=== PATIENT | male | born 1955 | race Caucasian/White ===

== ENCOUNTER 2016-03-21 14:59 | Inpatient (IN) | payer MEDICARE, OTHER ==
[~2016-03-21] VITALS: Ht 188 cm; Wt 172.4 kg
[~2016-03-21 14:59] MED LIST: AC325T PO; ALBU2.5V4 NEB; ALBU8.5H4 IH; ALPR1TAB7 PO; AMARYL; AMLO10TA2 PO; AMLO10TA82 PO; ASP325T PO; ASP81CT PO; ASPI-241 PO; ASPI-906 PO; ASPI-983 PO; ASPIRIN; ATOR40TA70 PO; ATR20T PO; BIPAP; CEFD300C3 PO; CEPH-507 PO; CLCX100C PO; CLON0.5T60 PO; CLOP75TA28 PO; CLPD75T PO; FEXO180T PO; FEXO180T84 PO; FEXO1TAB42 PO; FISH OIL; FLC1T PO; FLUT1DIS26 IH; FLUT1DIS26 INH; FNST5T PO; FOLI0.4T2 PO; FURO40TA4 PO; GFN600TCR PO; GLIM4TAB PO; GLMP4T PO; GLYPIZIDE; GUAI600T43 PO; HCT25T PO; HYDR25TA4 PO; INSR1U SC; INSU100I14 SQ; INSU100I29 SC; INSU100V5 SQ; ISOS30TA3 PO; KETO-22 PO; LEVE1U SQ; LEVO150T6 PO; LEVO300T2 PO; LEVO50TA6 PO; LEVO750T39 PO; LIPITOR; LIRA0.6P SQ; LISINOPRIL; LOTENSIN; LVT.05T PO; LVT.15T PO; MECL-106 PO; METF-380 PO; METF1000 PO; METFORMIN; METO-272 PO; METO-354 PO; METO100T5 PO; METO50TA7 PO; MTF500T PO; MTP50T PO; MULT-974 PO; MULT1CAP27 PO; MULTIVITAMIN; MUPI22OI29 EXT; NEXIUM; NF-ESOM40C PO; NITR0.4T SL; OMEG-158 PO; OMEG1CAP40 PO; OMEG1CAP74 PO; OMEP40CA36 PO; OXYC-12 PO; Oxygen; POTA-51 PO; POTA2.5T PO; POTA20TA15 PO; POTA99TA21 PO; PRD10T PO; PRD20T PO; RMP5C PO; RT-ALBUINH IH; SLMFT1E INH; SULF1TAB35 PO; SYNTHROID; TIOT18CA2 INH; TMSL.4C PO; TOPROL; WRF5T PO; ZPR20C PO; [UNRECOGNIZED DRUG - OTHER] IV
--- NOTE | 2016-03-21 15:55 | Diagnostic Imaging Report ---
INDICATION: Weakness. EXAMINATION: Portable chest at 3:42 p.m. FINDINGS: There is cardiomegaly. Pulmonary vascularity is within normal limits. There are no appreciable infiltrates. There are postop changes from a median sternotomy. IMPRESSION: Cardiomegaly without evidence of pulmonary venous hypertension. There is a suboptimal inspiration. Dictated by: Dictated on workstation # [id number]
[2016-03-21 16:49] LABS: BASOPHILS # (AUTO) 0.1 10^3/uL (0.0-0.1); BASOPHILS % (AUTO) 1 % (0-10); BILIRUBIN,URINE NEGATIVE (NEGATIVE); EOSINOPHILS # (AUTO) 0.2 10^3/uL (0.0-0.3); EOSINOPHILS % (AUTO) 4 % (0-10); KETONES,URINE NEGATIVE (NEGATIVE); LEUKOCYTE ESTERASE ,URINE NEGATIVE (NEGATIVE); LYMPHOCYTES # (AUTO) 0.6 X 10^3 (1.0-4.0); LYMPHOCYTES % (AUTO) 15 % (12-44); MEAN CORPUSCULAR HEMOGLOBIN 27 PG (25-34); MEAN CORPUSCULAR HGB CONC 30 G/DL (32-36); MEAN CORPUSCULAR VOLUME 90 FL (80-99); MEAN PLATELET VOLUME 10.5 FL (7.4-10.4); MONOCYTES # (AUTO) 0.6 X 10^3 (0.0-1.0); MONOCYTES % (AUTO) 15 % (0-12); NEUTROPHILS # (AUTO) 2.6 X 10^3 (1.8-7.8); NEUTROPHILS % (AUTO) 64 % (42-75); NITRITE,URINE NEGATIVE (NEGATIVE); PH,URINE 7 (5-9); PLATELET COUNT 168 10^3/uL (130-400); PROTEIN,URINE NEGATIVE (NEGATIVE); RED BLOOD COUNT 3.35 10^6/uL (4.35-5.85); UROBILINOGEN,URINE NORMAL (NORMAL); WHITE BLOOD COUNT 4.1 10^3/uL (4.3-11.0)
[2016-03-21 17:02] LABS: HYALINE CASTS, URINE 0-2 /LPF; WBC,URINE RARE /HPF
[2016-03-21] MEDS ORDERED: GABA-490 PO (17:02)
[2016-03-21] MEDS ORDERED: [UNRECOGNIZED DRUG - CODE] (17:02)
[2016-03-21 17:08] LABS: ALBUMIN 3.3 G/DL (3.2-4.5); CALCIUM 8.2 MG/DL (8.5-10.1); CREATININE SERUM 1.41 MG/DL (0.60-1.30); MAGNESIUM 1.7 MG/DL (1.8-2.4); POTASSIUM 4.4 MMOL/L (3.6-5.0); TOTAL PROTEIN 6.5 G/DL (6.4-8.2)
[2016-03-21 17:31] LABS: THYROID STIMULATING HORMONE 2.44 UIU/ML (0.35-4.94)
--- NOTE | 2016-03-21 18:26 | ED General ---
General Chief Complaint: Respiratory Problems Stated Complaint: WEAKNESS Nursing Triage Note: pt reports increased general weakness amd soa x 1 month. Nursing Sepsis Screen: No Definite Risk Source of Information: Patient Exam Limitations: No Limitations History of Present Illness Time Seen by Provider: 15:25 Initial Comments This 61-year-old gentleman presents to the emergency room with complaints of feeling excessively tired and weak. He reports progressive swelling of the lower extremities and abdomen. Symptoms have been fairly severe for about the past 5 days. He fell twice over the weekend. Today he has been unable to get up to the bathroom. He has a history of neuropathy, CHF, COPD, Parkinson's, obstructive sleep apnea, and hypothyroidism. Last echocardiogram on file reveals an ejection fraction of 50 percent. He has a significant chronic cough. His reports possible subjective fever over the past couple of days. later reports about the time of admission the patient is an alcoholic and drinks a significant amount of hard alcohol daily. His makes a correlation with worsening weakness and initiation of new medications including Neurontin and Sinemet about one month ago. Allergies and Home Medications Allergies Coded Allergies: ARB-Angiotensin Receptor Antagonist (Verified Allergy, Severe, ANAPHYLAXIS , 04/08/15) DUE TO REACTION TO ACEI UNABLE TO TAKE ARB PER CARDIOLOGY. hydrocodone (Verified Allergy, Unknown, 08/05/14) REACTS BADLY WITH HEART MEDICINE tree nut (Verified Allergy, Unknown, 03/21/16) JAQUELIN Inhibitors (Verified Adverse Reaction, Unknown, 04/06/15) ananaphlaxis Uncoded Allergies: ENVIRONMENTAL (Allergy, Mild, 09/07/08) Home Medications (Reported) Acetaminophen 325 Mg Tablet 650 MG PO QID PRN PRN PAIN (Reported) TAKES 2 (325MG) TABLETS Albuterol Sulfate 8.5 Gm Hfa.aer.ad 2 PUFF IH QID PRN PRN SHORTNESS OF BREATH ( Reported) Albuterol Sulfate 2.5 Mg/3 Ml Vial.neb 2.5 MG NEB Q4H PRN PRN SHORTNESS OF BREATH (Reported) Amlodipine Besylate 10 Mg Tablet 10 MG PO DAILY (Reported) Aspirin 81 Mg Tablet.dr 81 MG PO HS (Reported) Atorvastatin Calcium 40 Mg Tablet 40 MG PO DAILY (Reported) Clopidogrel Bisulfate 75 Mg Tablet 75 MG PO DAILY (Reported) Fluticasone/Salmeterol 1 Each Blst.w.dev 1 PUFF INH BID (Reported) Furosemide 40 Mg Tablet 40 MG PO 0800,1600 (Reported) 80 mg im the morning and 40mg in the evening Gabapentin 400 Mg Capsule 400 MG PO TID (Reported) Guaifenesin 600 Mg Tab.er.12h 600 MG PO Q12HR (Reported) Insulin Aspart 300 Units/3 Ml Solution 50 UNITS SQ AC (Reported) Insulin Detemir 100 Unit/1 Ml Insuln.pen 50 UNITS SC BID (Reported) Levothyroxine Sodium 150 Mcg Tablet 300 MCG PO DAILY (Reported) TAKES 2 (150MCG) TABLETS ALONG WITH 1 (50MCG) TABLET FOR TOTAL DAILY DOSE OF 350MCG. Levothyroxine Sodium 50 Mcg Tablet 50 MCG PO DAILY (Reported) TAKES ALONG WITH 2 (150MCG) TABLETS FOR A TOTAL DAILY DOSE OF 350MCG Metformin HCl 1,000 Mg Tablet 1,000 MG PO BID WITH MEALS (Reported) Metoprolol Succinate 50 Mg Tab.er.24h 100 MG PO HS (Reported) TAKES 2 (50MG) TABLETS Multivitamin 1 Each Tablet 1 TAB PO DAILY (Reported) Nitroglycerin 0.4 Mg Tab.subl 0.4 MG SL UD PRN PRN CHEST PAIN (Reported) dissolve one tablet under the tongue every 5 minutes as needed for chest pain. Oaks-3/Dha/Epa/Fish Oil 1,000 Mg Capsule 1,000 MG PO TID (Reported) Omeprazole 40 Mg Capsule.dr 40 MG PO DAILY (Reported) Potassium Gluconate 99 Mg Tablet 99 MG PO BID (Reported) Prednisone 10 Mg Tab PO UD (Reported) #42 FILLED 16 6 TABS X2 DAYS, 5 TABS X2 DAYS, 4 TABS X2 DAYS, 3 TABS X2 DAYS, 2 TABS X2 DAYS, 1 TAB X2 DAYS Sulfamethoxazole/Trimethoprim 1 Each Tablet 1 TAB PO MoWeFr (Reported) Tiotropium [place] 1 Inh Aerp 1 CAP INH DAILY (Reported) Constitutional: see HPI EENTM: no symptoms reported Respiratory: see HPI Cardiovascular: see HPI Gastrointestinal: no symptoms reported Genitourinary: no symptoms reported Musculoskeletal: no symptoms reported Skin: no symptoms reported Psychiatric/Neurological: See HPI Past Bnnycte-Uaxrvo-Aedmmb Hx Patient Social History Alcohol Use: Regular Use Recreational Drug Use: No Smoking Status: Former Smoker Former Smoker/When Quit: Aug 05, 2006 Recent Foreign Travel: No Contact w/Someone Who Travel: No Recent Infectious Disease Expo: No Recent Hopitalizations: Yes (several - see history) Immunizations Up To Date Tetanus Booster (TDap): More than 5yrs PED Vaccines UTD: No Date of Pneumonia Vaccine: Jan 02, 2014 Date of Influenza Vaccine: Jan 03, 2015 Seasonal Allergies Seasonal Allergies: No Surgeries HX Surgeries: Yes (HIATAL HERNIA REPAIR, ESOPHAGEAL WRAP) Surgeries: Abdominal, Appendectomy, CABG, Coronary Stent, Thyroidectomy Respiratory Hx Respiratory Disorders: Yes Respiratory Disorders: Pneumonia, Chronic Bronchitis, Sleep Apnea, COPD Cardiovascular Hx Cardiac Disorders: Yes (STENTS, TRIPLE BYPASS) Cardiac Disorders: Chronic Edema/Swelling, Coronary Artery Disease, Heart Attack, High Cholesterol, Hypertension Neurological Hx Neurological Disorders: Yes Neurological Disorders: Neuropathy, Stroke Reproductive System Hx Reproductive Disorders: No Sexually Transmitted Disease: No HIV/AIDS: No Genitourinary Hx Genitourinary Disorders: No Gastrointestinal Hx Gastrointestinal Disorders: Yes Gastrointestinal Disorders: Gastroesophageal Reflux, Hiatal Hernia Musculoskeletal Hx Musculoskeletal Disorders: Yes (EXOSTOSIS R HALLUX) Musculoskeletal Disorders: Arthritis Endocrine Hx Endocrine Disorders: Yes (hx of graves dz prior to thyroidectomy) Endocrine Disorders: Diabetes, Insulin dep HEENT HX ENT Disorders: No Loss of Vision: Denies Hearing Impairment: Denies Cancer Hx Cancer: No Psychosocial Hx Psychiatric Problems: Yes (alcoholism) Integumentary HX Skin/Integumentary Disorder: No Blood Transfusions Hx Blood Disorders: No Family Medical History Family Medial History: Cardiovascular disease Congenital heart disease Diabetes mellitus Hypertension Respiratory disorder Physical Exam Vital Signs Vital Sign - Last 12Hours 03/21/16 03/21/16 03/21/16 16:47 20:06 20:40 Temp 99.4 Pulse 83 Resp 18 B/P 137/73 Pulse Ox 98 O2 Delivery Nasal Cannula O2 Flow Rate 3 Capillary Refill : Less Than 3 Seconds General Appearance: WD/WN Mild Distress Obese HEENT: PERRL/EOMI Normal ENT Inspection Pharynx Normal Neck: Normal Inspection Respiratory: Lungs Clear Normal Breath Sounds No Accessory Muscle Use No Respiratory Distress Other (delayed expiratory phase, chronic cough) Cardiovascular: Regular Rate, Rhythm No Murmur Other (pitting edema throughout the lower extremities. Swelling extends to the abdomen) Gastrointestinal: Normal Bowel Sounds Non Tender Other (edema extends throughout the abdomen) Back: Normal Inspection Extremity: Swelling Other (skin tear on the right gibson) Neurologic/Psychiatric: Alert Oriented x3 No Motor/Sensory Deficits Normal Mood/Affect toddler guide II-XII Norm as Tested Skin: Normal Color Warm/Dry Other (skin tear right gibson, chronic skin changes to the lower extremities) Progress/Results/Core Measures Results/Orders Lab Results Laboratory Tests Test 03/21/16 16:35 03/21/16 18:39 Range/Units Alanine Aminotransferase (ALT/SGPT) 28 0-55 U/L Albumin 3.3 3.2-4.5 G/DL Alkaline Phosphatase 100 40-136 U/L Anion Gap 16 H 5-14 MMOL/L Aspartate Amino Transf (AST/SGOT) 84 H 5-34 U/L B-Type Natriuretic Peptide 207.0 H <100.0 PG/ML BUN/Creatinine Ratio 7 Basophils # (Auto) 0.1 0.0-0.1 10^3/uL Basophils (%) (Auto) 1 0-10 % Blood Urea Nitrogen 10 7-18 MG/DL Calcium Level 8.2 L 8.5-10.1 MG/DL Carbon Dioxide Level 22 21-32 MMOL/L Chloride Level 99 98-107 MMOL/L Creatinine 1.41 H 0.60-1.30 MG/DL Eosinophils # (Auto) 0.2 0.0-0.3 10^3/uL Eosinophils (%) (Auto) 4 0-10 % Estimat Glomerular Filtration Rate 51 Free Thyroxine 1.17 0.70-1.48 NG/DL Glucose Level 226 H 70-105 MG/DL Hematocrit 30 L 40-54 % Hemoglobin 9.1 L 13.3-17.7 G/DL Lactic Acid Level 3.0 *H 2.3 *H 0.5-2.0 MMOL/L Lymphocytes # (Auto) 0.6 L 1.0-4.0 X 10^3 Lymphocytes (%) (Auto) 15 12-44 % Magnesium Level 1.7 L 1.8-2.4 MG/DL Mean Corpuscular Hemoglobin 27 25-34 PG Mean Corpuscular Hemoglobin Concent 30 L 32-36 G/DL Mean Corpuscular Volume 90 80-99 FL Mean Platelet Volume 10.5 H 7.4-10.4 FL Monocytes # (Auto) 0.6 0.0-1.0 X 10^3 Monocytes (%) (Auto) 15 H 0-12 % Neutrophils # (Auto) 2.6 1.8-7.8 X 10^3 Neutrophils (%) (Auto) 64 42-75 % Platelet Count 168 130-400 10^3/uL Potassium Level 4.4 3.6-5.0 MMOL/L Red Blood Count 3.35 L 4.35-5.85 10^6/uL Red Cell Distribution Width 18.0 H 10.0-14.5 % Serum Alcohol < 10 <10 MG/DL Sodium Level 137 135-145 MMOL/L Thyroid Stimulating Hormone (TSH) 2.44 0.35-4.94 UIU/ML Total Bilirubin 1.0 0.1-1.0 MG/DL Total Protein 6.5 6.4-8.2 G/DL Urine Bacteria NEGATIVE /HPF Urine Bilirubin NEGATIVE NEGATIVE Urine Casts PRESENT /LPF Urine Clarity CLEAR Urine Color YELLOW Urine Crystals NONE /LPF Urine Culture Indicated NO Urine Glucose (UA) NEGATIVE NEGATIVE Urine Hyaline Casts 0-2 H /LPF Urine Ketones NEGATIVE NEGATIVE Urine Leukocyte Esterase NEGATIVE NEGATIVE Urine Mucus NEGATIVE /LPF Urine Nitrite NEGATIVE NEGATIVE Urine Protein NEGATIVE NEGATIVE Urine RBC NONE /HPF Urine RBC (Auto) NEGATIVE NEGATIVE Urine Specific [place] 1.005 L 1.016-1.022 Urine Urobilinogen NORMAL NORMAL MG/DL Urine WBC RARE /HPF Urine pH 7 5-9 White Blood Count 4.1 L 4.3-11.0 10^3/uL My Orders Orders-VALENTINE WALTERS MD Cbc With Automated Diff (03/21/16 15:24) Comprehensive Metabolic Panel (03/21/16 15:24) Magnesium (03/21/16 15:24) Ua Culture If Indicated (03/21/16 15:24) Saline Lock/Iv-Start (03/21/16 15:24) Thyroid Stimulating Hormone (03/21/16 15:24) Free T4 (Free Thyroxine) (03/21/16 15:24) Chest 1 View, Ap/Pa Only (03/21/16 15:35) BNP (03/21/16 15:35) Lactic Acid Analyzer (03/21/16 16:50) Furosemide Injection (Lasix Injection) (03/21/16 18:30) Albuterol/Ipra Inhalation Soln (Duoneb I (03/21/16 18:30) Svn Sm Volume Nebulizer Rt-Rfs (03/21/16 18:26) Alcohol (03/21/16 18:53) Heart Healthy (03/22/16 Breakfast) Heart Healthy (03/21/16 Dinner) Vital Signs/I&O Vital Sign - Last 12Hours 03/21/16 03/21/16 03/21/16 03/21/16 20:06 20:40 21:48 21:48 Temp 99.4 Pulse 87 87 Resp 18 16 Pulse Ox 98 93 O2 Delivery Nasal Cannula O2 Flow Rate 3 3.00 35.00 03/22/16 03/22/16 03/22/16 03/22/16 00:11 00:40 02:17 03:30 Temp 99.6 99.6 Pulse 68 82 77 83 Resp 24 18 24 20 B/P 126/56 119/68 Pulse Ox 98 98 93 99 O2 Flow Rate 35.00 35.00 Blood Pressure Mean: 94 Progress Note : Progress Note No specific etiology for his progressive weakness was determined in the emergency room. It is likely multifactorial with contributing factors including anasarca, medication effect, persistent alcohol use, deconditioning, etc. Since patient is no longer able to function at home, he was admitted to the hospital for treatment of his anasarca and further evaluation. Dr. Gu requested consultation with cardiology. After discussion with Dr. Gu and cardiology, Lasix 80 mg IV was administered to start treating the anasarca. Alcohol withdrawal protocol was added as his reported he gets agitated if abstaining from alcohol for a significant amount of time. Lactic acid was elevated without known cause but was trending down on the repeat draw. DuoNeb treatment was administered before admission. Diagnostic Imaging Diagonstic Imaging: Xray Plain Films/CT/US/NM/MRI: chest Comments Chest x-ray viewed by me and report reviewed. See report below: NAME: KOMAL ORTIZ [facility] REC#: [id number] PT STATUS: REG ER : 1955 PHYSICIAN: VALENTINE WALTERS MD ADMIT DATE: 03/21/16/ER Signed Date of Exam: 03/21/16 CHEST 1 VIEW, AP/PA ONLY INDICATION: Weakness. EXAMINATION: Portable chest at 3:42 p.m. FINDINGS: There is cardiomegaly. Pulmonary vascularity is within normal limits. There are no appreciable infiltrates. There are postop changes from a median sternotomy. IMPRESSION: Cardiomegaly without evidence of pulmonary venous hypertension. There is a suboptimal inspiration. Dictated by: Dictated on workstation # [id number] Dict: 03/21/16 1552 Trans: 03/21/16 1622 [id number] Interpreted by: CARMELA VIEIRA Electronically signed by:CARMELA VIEIRA 03/21/16 1624 Departure Communication Time/Spoke to Admitting Phy: 18:15 Communication Gu Time/Spoke to Consulting Physi: 18:20 Communication/Consulting Dr. Woods Impression Impression: Primary Impression: Anasarca Additional Impressions: Debility Acute renal insufficiency COPD (chronic obstructive pulmonary disease) Qualified Code: J44.9 - Chronic obstructive pulmonary disease, unspecified Elevated lactic acid level Disposition: ADMITTED INPATIENT Condition: Stable Decision to Admit Reason: Admit from ER (General) Decision to Admit/Date: Mar 21, 2016 Time/Decision to Admit Time: 18:00 Departure-Patient Inst. Referrals: PAULETTE MCGRATH MD (PCP/Family) Primary Care Physician VALENTINE WALTERS MD Mar 21, 2016 18:26
[2016-03-21] MEDS ORDERED: FUROSEMIDE 40 MG/4 ML INJ (LASIX) IVP ONE (18:30)
[2016-03-21] MEDS ORDERED: RT-ALBUTEROL/IPRATROPIUM 3 ML (DUONEB) VIAL INH ONE (18:30)
[2016-03-21] MEDS ORDERED: SENNA W/DOCUSATE (SENOKOT S) TABLET PO PRN (21:30)
[2016-03-21] MEDS ORDERED: ONDANSETRON 4 MG/2 ML (SDV) Z0FRAN IV PRN (21:30)
[2016-03-21] MEDS ORDERED: LORazepam 1 MG (ATIVAN) TAB PO PRN ×3 (21:30)
[2016-03-21] MEDS ORDERED: D5 1/2 NS 1000 ML IV SOLUTION 1,000 ML IV SCH (21:30)
[2016-03-21] MEDS ORDERED: ANTACID SUSP 30 ML UDC (MYLANTA) PO PRN (21:30)
[2016-03-21] MEDS ORDERED: LORazepam INJ 2 MG/ML (ATIVAN) VIAL IV PRN ×3 (21:30)
[2016-03-21] MEDS ORDERED: CATHETER FLUSH 10 ML SYR IV PRN (21:30)
[2016-03-21] MEDS: CATHETER FLUSH 10 ML SYR IV SCH (22:00)
[2016-03-21] MEDS ORDERED: RT-ALBUTEROL/IPRATROPIUM 3 ML (DUONEB) VIAL INH PRN (23:00)
[2016-03-22 00:40] VITALS: BP 126/56
[2016-03-22 03:30] VITALS: BP 119/68
[2016-03-22] MEDS: CATHETER FLUSH 10 ML SYR IV SCH ×3 (04:24→21:17)
[2016-03-22] MEDS: THIAMINE 100 MG (VITAMIN B-1) TAB PO SCH (05:41)
[2016-03-22] MEDS: MULTIVIT W/MINERALS TAB (THERAGRAN M) PO SCH (05:41)
[2016-03-22 06:49] LABS: BASOPHILS % (AUTO) 1 % (0-10); EOSINOPHILS # (AUTO) 0.2 10^3/uL (0.0-0.3); EOSINOPHILS % (AUTO) 6 % (0-10); LYMPHOCYTES # (AUTO) 0.6 X 10^3 (1.0-4.0); LYMPHOCYTES % (AUTO) 18 % (12-44); MEAN CORPUSCULAR HEMOGLOBIN 27 PG (25-34); MEAN CORPUSCULAR HGB CONC 30 G/DL (32-36); MEAN CORPUSCULAR VOLUME 90 FL (80-99); MEAN PLATELET VOLUME 10.2 FL (7.4-10.4); MONOCYTES # (AUTO) 0.5 X 10^3 (0.0-1.0); MONOCYTES % (AUTO) 15 % (0-12); NEUTROPHILS # (AUTO) 2.1 X 10^3 (1.8-7.8); NEUTROPHILS % (AUTO) 61 % (42-75); PLATELET COUNT 152 10^3/uL (130-400); RED BLOOD COUNT 2.94 10^6/uL (4.35-5.85); RED CELL DISTRIBUTION WIDTH 18.3 % (10.0-14.5); WHITE BLOOD COUNT 3.4 10^3/uL (4.3-11.0)
[2016-03-22 07:12] LABS: CALCIUM 7.8 MG/DL (8.5-10.1); CREATININE SERUM 1.32 MG/DL (0.60-1.30); MAGNESIUM 1.4 MG/DL (1.8-2.4); POTASSIUM 3.2 MMOL/L (3.6-5.0)
[2016-03-22] MEDS ORDERED: FLU TRIvalent (5 YOA+) 2016-17 (AFLURIA) 0.5 ML IM ONE (07:15)
[2016-03-22] MEDS: RT-ALBUTEROL/IPRATROPIUM 3 ML (DUONEB) VIAL INH SCH ×4 (07:25→19:06)
[2016-03-22] MEDS: RT-ADVAIR HFA 115/21 MCG PER PUFF IH SCH ×2 (07:26→19:06)
[2016-03-22 08:00] VITALS: BP 158/84
[2016-03-22] MEDS: FOLIC ACID 1 MG TAB PO SCH (08:22)
[2016-03-22] MEDS: MAGNESIUM OXIDE (MAG-OX)400 MG TAB PO SCH ×2 (08:22→21:17)
[2016-03-22] MEDS ORDERED: KCL 20 MEQ TAB (K-DUR) PO NR (09:15)
[2016-03-22] MEDS ORDERED: MAGNESIUM 1 GM/100 ML IVPB 100 ML IV NR (09:15)
[2016-03-22 09:22] LABS: INR 1.1 (0.8-1.4); PROTHROMBIN TIME PATIENT 13.7 SEC (12.2-14.7)
[2016-03-22] MEDS ORDERED: MAGNESIUM 1 GM/100 ML IVPB 100 ML IV ONE (09:33)
[2016-03-22] MEDS ORDERED: CARB1TAB17 PO (09:53)
[2016-03-22] MEDS ORDERED: FURO40TA4 PO (09:53)
[2016-03-22] MEDS ORDERED: inSUlin ASPART (NovoLOG) 1 UNIT/0.01 ML (CHARGE PER UNIT) SC NR (09:53)
[2016-03-22] MEDS ORDERED: SULF-222 PO (09:53)
[2016-03-22] MEDS ORDERED: HYDR25TA4 PO (09:53)
[2016-03-22] MEDS ORDERED: TIOT18CA2 IH (09:53)
[2016-03-22] MEDS ORDERED: FUROSEMIDE 40 MG/4 ML INJ (LASIX) IVP NR (09:55)
[2016-03-22] MEDS ORDERED: SPIRONOLACTONE 25 MG (ALDACTONE) TAB PO NR (09:56)
--- NOTE | 2016-03-22 10:18 | History & Physical-Hospitalist ---
HPI History of Present Illness: HPI/Chief Complaint Mr. Boucher this 61-year-old white male with long-standing history of alcoholism who had been feeling increasingly weak with several falls over the weekend. He developed progressive fluid retention over the past several weeks. His believe this diamante symptoms had been getting worse with the addition of Sinemet and gabapentin that had been initiated in the past month for tremor and lower extremity pain. Patient has diabetes with neuropathy. He had been treated by Dr. Basilio the local math and physics instructor for an ulcer on the volar aspect of his third toe not felt to be infected it did been dressed and debridement did yesterday. He was unable to get to the bathroom due to weakness prompting his emergency room visit. He was in the hospital several months ago for similar admission with anasarca at which time over 50 pounds of fluid was mobilized. He reports drinking nearly a 2 L of vodka daily and reports absolutely no desire to quit. Date Seen 03/22/16 Attending Physician Zhane Gu Floyd R MD Referring Physician Date of Admission Mar 21, 2016 at 19:05 Home Medications & Allergies Home Medications Reviewed patient Home Medication Reconciliation Form Allergies Coded Allergies: ARB-Angiotensin Receptor Antagonist (Verified Allergy, Severe, ANAPHYLAXIS , 04/08/15) DUE TO REACTION TO ACEI UNABLE TO TAKE ARB PER CARDIOLOGY. hydrocodone (Verified Allergy, Unknown, 08/05/14) REACTS BADLY WITH HEART MEDICINE tree nut (Verified Allergy, Unknown, 03/21/16) JAQUELIN Inhibitors (Verified Adverse Reaction, Unknown, 04/06/15) ananaphlaxis Uncoded Allergies: ENVIRONMENTAL (Allergy, Mild, 09/07/08) Past Ufvyuff-Zkjgkv-Qhmdot Hx Patient Social History Alcohol Use: Regular Use Recreational Drug Use: No Smoking Status: Former Smoker Former smoker/When Quit: Aug 05, 2006 Physical Abuse Screen: No Sexual Abuse: No Recent Foreign Travel: No Contact w/other who traveled: No Recent Hopitalizations: Yes (several - see history) Recent Infectious Disease Expo: No Immunizations Up To Date Tetanus Booster (TDap): More than 5yrs Date of Pneumonia Vaccine: Jan 02, 2014 Date of Influenza Vaccine: Jan 03, 2015 Seasonal Allergies Seasonal Allergies: Yes Surgeries HX Surgeries: Yes (HIATAL HERNIA REPAIR, ESOPHAGEAL WRAP) Surgeries: Abdominal, Appendectomy, CABG, Coronary Stent, Thyroidectomy Respiratory Hx Respiratory Disorders: Yes Cardiovascular Hx Cardiovascular Disorders: Yes (STENTS, TRIPLE BYPASS) Cardiac Disorders: Chronic Edema/Swelling, Coronary Artery Disease, Heart Attack, High Cholesterol, Hypertension Neurological Hx Neurological Disorders: Yes Neurological Disorders: Neuropathy, Stroke Reproductive System Hx Reproductive Disorders: No Sexually Transmitted Disease: No HIV/AIDS: No Genitourinary Hx Genitourinary Disorders: No Gastrointestinal Hx Gastrointestinal Disorders: Yes Gastrointestinal Disorders: Gastroesophageal Reflux, Hiatal Hernia Musculoskeletal Hx Musculoskeletal Disorders: Yes (EXOSTOSIS R HALLUX) Musculoskeletal Disorders: Arthritis Endocrine Hx Endocrine Disorders: Yes (hx of graves dz prior to thyroidectomy) Endocrine Disorders: Diabetes, Insulin dep HEENT HX ENT Disorders: No Loss of Vision: Denies Hearing Impairment: Denies Cancer Hx Cancer: No Psychosocial Hx Psychiatric Problems: Yes (alcoholism) Integumentary HX Skin/Integumentary Disorder: No Blood Transfusions Hx Blood Disorders: No Family Medical History Family Hx: Cardiovascular disease Congenital heart disease Diabetes mellitus Hypertension Respiratory disorder Review of Systems Constitutional: No chills, No dizziness, No fever, weakness weight gainNo weight loss, No other EENTM: No double vision, No vision loss Respiratory: cough (I and chronic) dyspnea on exertionNo hemoptysis, No orthopnea, No phlegm, No short of breath, No stridor, No wheezing, No other Gastrointestinal: No abdominal pain, No constipation, No diarrhea, No dysphagia , No hematemesis, No heartburn, No jaundice, No loss of appetite, No melena, No nausea, No vomiting, No other Psychiatric/Neurological: Numbness (lower extremity from knees down) Tremors Physical Exam Physical Exam Vital Signs Vital Sign - Last 12Hours 03/21/16 03/21/16 03/21/16 16:47 20:06 20:40 Temp 99.4 Pulse 83 Resp 18 B/P 137/73 Pulse Ox 98 O2 Delivery Nasal Cannula O2 Flow Rate 3 Capillary Refill : Less Than 3 Seconds General Appearance: Chronically ill Obese HEENT: PERRL/EOMI Pharynx Normal Neck: Full Range of Motion Other (sclera nonicteric) Respiratory: Chest Non Tender Lungs Clear Normal Breath Sounds No Accessory Muscle Use No Respiratory Distress Other (diminished breath sounds posteriorly) Cardiovascular: Regular Rate, Rhythm No Edema No Gallop No JVD No Murmur Normal Peripheral Pulses Other (soft S4) Extremity: Normal Capillary Refill Non Tender No Calf Tenderness Other (3 post bilateral lower extremity edema loss of sensation from the knees down mild erythema is noted there is traumatic abrasion noted there are some shallow 2-3 mm pustules present bilaterally) Neurologic/Psychiatric: Alert Oriented x3 Other (normal facial animation is noted the patient exhibits no evidence for muscular rigidity no cogwheeling is noted) Lymphatic: No Adenopathy Results Results/Procedures Lab Laboratory Tests 03/21/16 16:35 03/22/16 06:40 Assessment/Plan Admission Diagnosis 1. Anasarca related to alcoholism as well as obesity hypoventilation syndrome we'll initiate IV diuretic therapy with loop diuretic in addition to Aldactone and continue BiPAP therapy with the patient's home machine. 2. Patient has no intention or desire to quit drinking and is well aware of his limited life expectancy and his continued poor quality of life with expected continued hospital admissions for anasarca and future liver failure he is agreeable to DO NOT RESUSCITATE status which we will initiate. We will discuss hospice before discharge as well. 3. Type II diabetes mellitus insulin requiring we'll resume home insulin. 4. Hypomagnesemia and hypokalemia we'll replace. This a complex medical management scenario thus far one hour of care time has been spent. Clinical Quality Measures DVT/VTE Risk/Contraindication: Risk Factor Score Per Nursin RFS Level Per Nursing on Admit: 4+=Very High SOO PERSAUD MD Mar 22, 2016 10:17
[2016-03-22] MEDS ORDERED: NITROGLYCERIN SUBLINGUAL 0.4 MG TAB (NITROSTAT) SL PRN (10:30)
[2016-03-22] MEDS ORDERED: inSUlin DETERMIR 1 UNIT/0.01 ML (LEVEMIR) CHARGE PER UNIT SQ NR (10:30)
--- NOTE | 2016-03-22 10:45 | Consultation-Cardiology ---
HPI-Cardiology Cardiology Consultation Date of Consultation 03/22/16 Date of Admission Indication: Anasarca, CAD HPI Patient is a 61-year-old gentleman with history of coronary artery disease, severe COPD, obstructive sleep apnea, EtOHism. Presented to the ER with complaints of progressive weakness to lower extremities over the past several weeks. Complaining of increased peripheral edema over the past month. Patient' s reports he has had several falls at home secondary to weakness. Denies any chest pain. Continues complain of chronic dyspnea. Reporting productive cough and low-grade fever for the past 2-3 days. Patient admit to drinking approximately 2 L of vodka per day. Patient was seen and evaluated with Linda, has been having increasing weakness, numbness in his feet, peripheral edema, abdominal distention. Has history of heavy alcohol use. Unable to stand up by himself at this time, generalized weakness and unsteady gait Home Medications & Allergies Allergies: Coded Allergies: ARB-Angiotensin Receptor Antagonist (Verified Allergy, Severe, ANAPHYLAXIS , 04/08/15) DUE TO REACTION TO ACEI UNABLE TO TAKE ARB PER CARDIOLOGY. hydrocodone (Verified Allergy, Unknown, 08/05/14) REACTS BADLY WITH HEART MEDICINE tree nut (Verified Allergy, Unknown, 03/21/16) JAQUELIN Inhibitors (Verified Adverse Reaction, Unknown, 04/06/15) ananaphlaxis Uncoded Allergies: ENVIRONMENTAL (Allergy, Mild, 09/07/08) Home Medication List Reviewed: Yes [id number] [id number] Patient Social History Marital Status: Alcohol Use: Regular Use Recreational Drug Use: No Smoking Status: Former Smoker Former smoker/When Quit: Aug 05, 2006 Recent Foreign Travel: No Recent Infectious Disease Expo: No Recent Hopitalizations: Yes (several - see history) Physical Abuse Screen: No Sexual Abuse: No Immunizations Up To Date Tetanus Booster (TDap): More than 5yrs Date of Pneumonia Vaccine: Jan 02, 2014 Date of Influenza Vaccine: Jan 03, 2015 Past Medical History CAD, diastolic dysfunction, COPD, morbid obesity, EtOHism Family Medical History Family History: Cardiovascular disease Congenital heart disease Diabetes mellitus Hypertension Respiratory disorder Constitutional: No chills, No diaphoresis, fever malaise weakness EENTM: No blurred vision, No double vision, No mouth pain, No mouth swelling, No vision loss Respiratory: cough dyspnea on exertionNo hemoptysis, orthopnea phlegmNo stridor, No wheezing Cardiovascular: No chest pain, edemaNo palpitations Gastrointestinal: No abdominal pain, No constipation, No diarrhea Genitourinary: No decreased output, No discharge Skin: No lesions, rash other (wound to left foot) Psychiatric/Neurological: Denies Headache, Denies Numbness, Tremors Weakness Reviewed Test Results Reviewed Test Results Lab Laboratory Tests 03/21/16 16:35: Alanine Aminotransferase (ALT/SGPT) 28, Albumin 3.3, Alkaline Phosphatase 100, Anion Gap 16H, Aspartate Amino Transf (AST/SGOT) 84H, B-Type Natriuretic Peptide 207.0H, BUN/Creatinine Ratio 7, Basophils # (Auto) 0.1, Basophils (%) ( Auto) 1, Blood Urea Nitrogen 10, Calcium Level 8.2L, Carbon Dioxide Level 22, Chloride Level 99, Creatinine 1.41H, Eosinophils # (Auto) 0.2, Eosinophils (%) ( Auto) 4, Estimat Glomerular Filtration Rate 51, Free Thyroxine 1.17, Glucose Level 226H, Hematocrit 30L, Hemoglobin 9.1L, Lactic Acid Level 3.0*H, Lymphocytes # (Auto) 0.6L, Lymphocytes (%) (Auto) 15, Magnesium Level 1.7L, Mean Corpuscular Hemoglobin 27, Mean Corpuscular Hemoglobin Concent 30L, Mean Corpuscular Volume 90, Mean Platelet Volume 10.5H, Monocytes # (Auto) 0.6, Monocytes (%) (Auto) 15H, Neutrophils # (Auto) 2.6, Neutrophils (%) (Auto) 64, Platelet Count 168, Potassium Level 4.4, Red Blood Count 3.35L, Red Cell Distribution Width 18.0H, Serum Alcohol < 10, Sodium Level 137, Thyroid Stimulating Hormone (TSH) 2.44, Total Bilirubin 1.0, Total Protein 6.5, Urine Bacteria NEGATIVE, Urine Bilirubin NEGATIVE, Urine Casts PRESENT, Urine Clarity CLEAR, Urine Color YELLOW, Urine Crystals NONE, Urine Culture Indicated NO, Urine Glucose (UA) NEGATIVE, Urine Hyaline Casts 0-2H, Urine Ketones NEGATIVE, Urine Leukocyte Esterase NEGATIVE, Urine Mucus NEGATIVE, Urine Nitrite NEGATIVE , Urine Protein NEGATIVE, Urine RBC NONE, Urine RBC (Auto) NEGATIVE, Urine Specific [place] 1.005L, Urine Urobilinogen NORMAL, Urine WBC RARE, Urine pH 7, White Blood Count 4.1L 03/21/16 18:39: Lactic Acid Level 2.3*H 03/22/16 06:40: Anion Gap 11, BUN/Creatinine Ratio 8, Basophils # (Auto) 0.0, Basophils (%) ( Auto) 1, Blood Urea Nitrogen 11, Calcium Level 7.8L, Carbon Dioxide Level 26, Chloride Level 96L, Creatinine 1.32H, Eosinophils # (Auto) 0.2, Eosinophils (%) (Auto) 6, Estimat Glomerular Filtration Rate 55, Glucose Level 336H, Hematocrit 27L, Hemoglobin 8.0L, Lymphocytes # (Auto) 0.6L, Lymphocytes (%) (Auto) 18, Magnesium Level 1.4L, Mean Corpuscular Hemoglobin 27, Mean Corpuscular Hemoglobin Concent 30L, Mean Corpuscular Volume 90, Mean Platelet Volume 10.2, Monocytes # (Auto) 0.5, Monocytes (%) (Auto) 15H, Neutrophils # (Auto) 2.1, Neutrophils (%) (Auto) 61, Platelet Count 152, Potassium Level 3.2L, Red Blood Count 2.94L, Red Cell Distribution Width 18.3H, Sodium Level 133L, White Blood Count 3.4L, INR Comment 1.1, Prothrombin Time 13.7 Physical Exam Vital Signs Vital Sign - Last 12Hours 03/21/16 03/21/16 03/21/16 16:47 20:06 20:40 Temp 99.4 Pulse 83 Resp 18 B/P 137/73 Pulse Ox 98 O2 Delivery Nasal Cannula O2 Flow Rate 3 Capillary Refill : Less Than 3 Seconds General Appearance: No Apparent Distress WD/WN HEENT: PERRL/EOMI Normal ENT Inspection Neck: Non Tender Supple Carotid Bruit (right-sided carotid bruit) Respiratory: Chest Non Tender No Accessory Muscle Use No Respiratory Distress Decreased Breath Sounds Cardiovascular: Regular Rate, Rhythm No Murmur Other (+ 2-3 bilateral lower extremity edema) Gastrointestinal: No Pulsatile Mass Non Tender Distended Rectal: Deferred Back: No CVA Tenderness Extremity: Pedal Edema Swelling Neurologic/Psychiatric: Alert Oriented x3 matchbook maker II-XII Norm as Tested Skin: Normal Color Erythema Lymphatic: No Adenopathy A/P-Cardiology Admission Diagnosis Anasarca ETOHism CAD HTN Assessment/Plan Anasarca- continue to diurese. I will obtain abdominal US for further evaluation. Planning for venous insufficiency scan as outpatient. ETOHism- patient admits to drinking large amount of vodka on a daily basis. States no desire to quit drinking. Alcohol withdrawal protocol has been initiated. Coronary artery disease with history of CABG x 3 done in May 2011 with BARROSO to the left anterior descending artery, vein graft to the obtuse marginal, vein graft to the diagonal. Most recent stress test done March 2014 was negative for ischemia or infarct. Clinically stable, continue to monitor. COPD, severe, maintained on oxygen,History of acute respiratory failure following surgery requiring prolonged ventilation. Managed by Dr. Suh Obstructive sleep apnea using Bi-PAP Carotid artery stenosis-severe right ICA stenosis, left less than 40 percent. Patient underwent carotid duplex today revealing right carotid artery stenosis of 60-79 percent. Has had CTA done in June 2015 revealing right ICA stenosis of 80 percent. Planning to see Dr. Haskins as an outpatient Acute renal insufficiency- continue to monitor renal function Anemia- continue to monitor. Morbid obesity BMI is 45, discussed weight loss. Hypertension-controlled. Continue to monitor. Hyperlipidemia, mildly elevated LDL. Patient is maintained on statin. Repeat lipids this month. History of elevated LFTs- Likely related to history of EtOH use. Continue to monitor. Left atrial dilatation, Diastolic dysfunction , Left ventricular hypokinesia with a normal ejection fraction of 50%. Continue to monitor. Chronic peripheral edema, continue to monitor Diabetes mellitus, followed and managed by primary care physician History of anaphylactic reaction to Benazepril Occasional rare palpitations Thank you for allowing us to participate in the management of Mr. Felix. This is Linda Zepeda PA-C as a scribe for Dr. Ray. Patient was seen and evaluated with Linda, I interviewed the patient and performed physical examination, patient had increasing abdominal girth, significant pedal edema, clear lungs, discussed the management plan, patient has history of alcoholism. Has been having increasing weakness, increasing anasarca. Increasing abdominal girth. I will evaluate abdominal ultrasound. Continue on diuretics at this time, BNP is elevated slightly with history of renal failure, last echocardiogram did not show any signs of congestive heart failure. I will continue with diuretics and monitor him closely. I discussed the management plan with the patient and his , discussed with Linda. Agree with the current scribe. I made a few changes to the North and use Italic Font Clinical Quality Measures DVT/VTE Risk/Contraindication: Risk Factor Score Per Nursin RFS Level Per Nursing on Admit: 4+=Very High LINDA WARD Mar 22, 2016 10:45 NHUNG RAY MD Mar 22, 2016 12:15
[2016-03-22 12:00] VITALS: BP 145/80
[2016-03-22 12:25] LABS: ALBUMIN 3.2 G/DL (3.2-4.5); BILIRUBIN,DIRECT 0.5 MG/DL (0.0-0.3); BILIRUBIN,INDIRECT 0.4 MG/DL; BILIRUBIN,TOTAL 0.9 MG/DL (0.1-1.0); TOTAL PROTEIN 5.6 G/DL (6.4-8.2)
[2016-03-22] MEDS: UMECLIDINIUM BROMIDE (INCRUSE ELLIPTA) 7'S IH SCH (12:54)
--- NOTE | 2016-03-22 13:55 | Diagnostic Imaging Report ---
PROCEDURE: US abdomen complete. TECHNIQUE: Multiple real-time grayscale images were obtained over the abdomen in various projections. INDICATION: Ascites. Anasarca. FINDINGS: The pancreas is obscured by bowel gas. The liver is enlarged measuring 23.5 cm in craniocaudal diagonal dimension. There is limited visualization of much of the liver parenchyma which is hyperechoic and dense suggestive of fatty infiltration. No definite focal lesion. The gallbladder demonstrates no stones or wall thickening. The spleen is moderately enlarged measuring 18 x 9.2 x 11.1 cm. The IVC and aorta are obscured by bowel gas. The right kidney is not seen. The left kidney is 15.6 cm in length with no hydronephrosis or focal lesion. No ascites or fluid collection. IMPRESSION: Hepatosplenomegaly and hepatic steatosis. Limited evaluation of the liver parenchyma, the pancreas and the right kidney due to large body habitus and bowel gas. Dictated by: Dictated on workstation # [id number]
[2016-03-22 15:45] VITALS: BP 143/71
[2016-03-22] MEDS ORDERED: FUROSEMIDE 40 MG/4 ML INJ (LASIX) IVP SCH (17:00)
[2016-03-22] MEDS: KCL 20 MEQ TAB (K-DUR) PO SCH (18:01)
[2016-03-22] MEDS: inSUlin ASPART (NovoLOG) 1 UNIT/0.01 ML (CHARGE PER UNIT) SC SCH (18:01)
[2016-03-22 19:35] VITALS: BP 153/71
[2016-03-22] MEDS ORDERED: ACETAMINOPHEN 325 MG TABLET/CAPLET (TYLENOL) ONE (19:42)
[2016-03-22] MEDS: ACETAMINOPHEN 325 MG TABLET/CAPLET (TYLENOL) PO PRN (19:45)
[2016-03-22] MEDS: meTOproloL SUCCINATE 50 MG (TOPROL XL) TAB PO SCH (21:17)
[2016-03-22] MEDS: SPIRONOLACTONE 25 MG (ALDACTONE) TAB PO SCH (21:17)
[2016-03-22] MEDS: ASPIRIN E.C. 81 MG (ECOTRIN) TAB PO SCH (21:17)
[2016-03-22] MEDS: inSUlin DETERMIR 1 UNIT/0.01 ML (LEVEMIR) CHARGE PER UNIT SQ SCH (21:17)
[2016-03-23] VITALS: BP 127/59
[2016-03-23 04:00] VITALS: BP 131/72
[2016-03-23] MEDS: THIAMINE 100 MG (VITAMIN B-1) TAB PO SCH (05:52)
[2016-03-23] MEDS: MULTIVIT W/MINERALS TAB (THERAGRAN M) PO SCH (05:52)
[2016-03-23] MEDS: CATHETER FLUSH 10 ML SYR IV SCH ×3 (05:52→20:32)
[2016-03-23] MEDS: TRIM/SULFAMETH 160/800 (SEPTRA DS) TAB PO SCH (05:52)
[2016-03-23] MEDS: inSUlin ASPART (NovoLOG) 1 UNIT/0.01 ML (CHARGE PER UNIT) SC SCH ×3 (06:04→16:48)
[2016-03-23 06:22] LABS: BASOPHILS # (AUTO) 0.1 10^3/uL (0.0-0.1); BASOPHILS % (AUTO) 2 % (0-10); EOSINOPHILS # (AUTO) 0.2 10^3/uL (0.0-0.3); EOSINOPHILS % (AUTO) 7 % (0-10); LYMPHOCYTES # (AUTO) 0.5 X 10^3 (1.0-4.0); LYMPHOCYTES % (AUTO) 15 % (12-44); MEAN CORPUSCULAR HEMOGLOBIN 27 PG (25-34); MEAN CORPUSCULAR HGB CONC 30 G/DL (32-36); MEAN CORPUSCULAR VOLUME 91 FL (80-99); MEAN PLATELET VOLUME 10.2 FL (7.4-10.4); MONOCYTES # (AUTO) 0.4 X 10^3 (0.0-1.0); MONOCYTES % (AUTO) 14 % (0-12); NEUTROPHILS # (AUTO) 1.9 X 10^3 (1.8-7.8); NEUTROPHILS % (AUTO) 61 % (42-75); PLATELET COUNT 155 10^3/uL (130-400); RED BLOOD COUNT 3.05 10^6/uL (4.35-5.85); RED CELL DISTRIBUTION WIDTH 18.4 % (10.0-14.5)
[2016-03-23 06:51] LABS: ANION GAP 13 MMOL/L (5-14); BLOOD UREA NITROGEN 7 MG/DL (7-18); BUN/CREATININE RATIO 6; CARBON DIOXIDE 25 MMOL/L (21-32); CHLORIDE 99 MMOL/L (98-107); GFR ESTIMATED > 60; GLUCOSE 223 MG/DL (70-105); POTASSIUM 3.3 MMOL/L (3.6-5.0); SODIUM 137 MMOL/L (135-145)
[2016-03-23] MEDS: RT-ALBUTEROL/IPRATROPIUM 3 ML (DUONEB) VIAL INH SCH ×4 (07:08→19:20)
[2016-03-23] MEDS: RT-ADVAIR HFA 115/21 MCG PER PUFF IH SCH ×2 (07:14→19:23)
[2016-03-23] MEDS: UMECLIDINIUM BROMIDE (INCRUSE ELLIPTA) 7'S IH SCH (07:17)
[2016-03-23 08:00] VITALS: BP 140/75
[2016-03-23] MEDS ORDERED: TIOTROPIUM BROMIDE (SPIRIVA) 5'S INHALER IH SCH (08:00)
--- NOTE | 2016-03-23 08:44 | Progress Note-Hospitalist ---
Subjective HPI/CC On Admission Mr. Boucher this 61-year-old white male with long-standing history of alcoholism who had been feeling increasingly weak with several falls over the weekend. He developed progressive fluid retention over the past several weeks. His believe this diamante symptoms had been getting worse with the addition of Sinemet and gabapentin that had been initiated in the past month for tremor and lower extremity pain. Patient has diabetes with neuropathy. He had been treated by Dr. Basilio the local nurse behavioral health care for an ulcer on the volar aspect of his third toe not felt to be infected it did been dressed and debridement did yesterday. He was unable to get to the bathroom due to weakness prompting his emergency room visit. He was in the hospital several months ago for similar admission with anasarca at which time over 50 pounds of fluid was mobilized. He reports drinking nearly a 2 L of vodka daily and reports absolutely no desire to quit. Date Seen 03/23/16 Subjective/Events-last exam patient reports he was able to sleep from 9 p.m. the 4 or 5 a.m. with decreased nonproductive cough. He voices no complaints. He reports no chills or fever and denies leg pain. With assistance he is able to get from the bed to chair. He has been using a urinal and he has not been to the bathroom yet. He reports is been 3 days since his bowels last moved. He denies any abdominal pain and his appetite remains good without nausea. Objective Exam Vital Signs Vital Sign - Last 12Hours 03/21/16 03/21/16 03/21/16 16:47 20:06 20:40 Temp 99.4 Pulse 83 Resp 18 B/P 137/73 Pulse Ox 98 O2 Delivery Nasal Cannula O2 Flow Rate 3 Capillary Refill : Less Than 3 Seconds General Appearance: No Apparent Distress Obese Respiratory: Chest Non Tender No Accessory Muscle Use No Respiratory Distress Other (mild end expiratory wheezing posteriorly anteriorly chest is clear) Cardiovascular: Regular Rate, Rhythm No Edema No Gallop No JVD No Murmur Extremity: Other (there appears to be less lower extremity swelling and erythema persists with multiple 2-4 mm pustules to the mid tibia bilaterally) Neurologic/Psychiatric: Alert Oriented x3 Results/Procedures Lab Laboratory Tests 03/23/16 05:54 Assessment/Plan Assessment and Plan Assess & Plan/Chief Complaint 1. Anasarca a morning weight is not yet reported advise the patient not push fluids attempt is to drink to thirst and put an order in for daily weights. We will increase to twice a day IV diuretic therapy if weight is not decreasing we' ll repeat electrolytes in the morning potassium was up slightly today. 2. 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 3. Chronic venous insufficiency secondary to obesity suspect that the abscesses are likely sterile by Dr. Verma will be by to perform a culture will treat accordingly. SOO PERSAUD MD Mar 23, 2016 08:44
[2016-03-23] MEDS ORDERED: SENNA W/DOCUSATE (SENOKOT S) TABLET PO NR (09:00)
[2016-03-23] MEDS: inSUlin DETERMIR 1 UNIT/0.01 ML (LEVEMIR) CHARGE PER UNIT SQ SCH ×2 (09:47→20:32)
[2016-03-23] MEDS: MAGNESIUM OXIDE (MAG-OX)400 MG TAB PO SCH ×2 (09:48→20:31)
[2016-03-23] MEDS: CLOPIDOGREL 75 MG (PLAVIX) TABLET PO SCH (09:48)
[2016-03-23] MEDS: KCL 20 MEQ TAB (K-DUR) PO SCH ×2 (09:48→16:48)
[2016-03-23] MEDS: FOLIC ACID 1 MG TAB PO SCH (09:48)
[2016-03-23] MEDS: ATORVASTATIN 40 MG (LIPITOR) TABLET PO SCH (09:48)
[2016-03-23] MEDS: SPIRONOLACTONE 25 MG (ALDACTONE) TAB PO SCH ×2 (09:48→20:31)
[2016-03-23] MEDS: FUROSEMIDE 40 MG/4 ML INJ (LASIX) IVP SCH (09:49)
--- NOTE | 2016-03-23 10:06 | Physical Therapy Evaluation ---
PT Evaluation-General Medical Diagnosis Admission Date Mar 21, 2016 at 19:05 Medical Diagnosis: Anasarca Onset Date: Mar 20, 2016 Therapy Diagnosis Therapy Diagnosis: weakness, immobility Height/Weight Height (Feet): 6 Height (Inches): 2.00 Weight (Pounds): 349 Weight (Ounces): 8.0 Precautions Precautions/Isolations: Fall Prevention, Standard Precautions Weight Bear Status Weight Bearing Restriction: Weight Bearing/Tolerated Referral Physician: Nadeem Galvan Reason for Referral: Evaluation/Treatment, Strengthening Medical History Pertinent Medical History: Alcoholism, Arthritis, CABG, CAD, COPD, CVA, DM, GERD, Heart Failure, HTN, DE, Neuropathy, Parkinson's, Smoking Additional Medical History hiatal hernia repair, stroke 5 yrs ago with (L) side weakness Current History Progressive weakness and fluid retention over the past 2 weeks. Pt had multiple falls the weekend of 03/20/16. He reached a point he could not get around his house so presented to the ER and was admitted. He currenlty admits to drinking large amounts of vodka daily. Reviewed History: Yes Social History Home: Single Level Current Living Status: Spouse Pt reports he was able to walk household distances without device. He uses O2 at 3L/min. Prior/Core FIM Prior Level of Function Functional [place] Measure 0=Not Assessed/NA 4=Minimal Assistance 1=Total Assistance 5=Supervision or Setup 2=Maximal Assistance 6=Modified [place] 3=Moderate Assistance 7=Complete [place] Bed Mobility: 6 Transfers (B,C,W/C) (FIM): 6 Gait: 5 Locomotion: 5 (I for distances under 150ft) PT Evaluation-Current Subjective Pt reports he was becoming progressively weaker at home and was retaining fluids after starting 2 new meds. He fell several times at home over the weekend of 03/20/16. After the last fall he required the fire department to assist him to standing. He came to the ER at that point as he was not able to care for himself at home. He is a heavy drinker of Vodka, daily usage. He has current open sores on his legs and feet due to diabetic neuropathy. Pt/Family Goals Discharge to home as prior to this recent event. Objective Patient Orientation: Normal For Age Problem Solving: Good Attachments: Oxygen ROM/Strength ROM Upper Extremities WNL ROM Lower Extremities Hip flexion to 90 degrees, knee flexion 110 degrees Strength Upper Extremities WFL Strenght Lower Extremities (B) Knee extension 3/5, Ankle DF 3/5, Hip flexion 2/5 Integumentary/Posture Integumentary (L) foot ulcer on 3rd toe, open skin tear gibson (R) LE Bowel Incontinence: No Bladder Incontinence: No Neuromuscular (Tone, Coordination, Reflexes) resting and intention tremor in both upper and lower extremities Sensory Vision: Functional Hearing: Functional Sensation Right Upper Extremit: Intact Sensation Left Upper Extremity: Intact Sensation Right Lower Extremit: Impaired Sensation Left Lower Extremity: Impaired Sensation Lower Extremities No sensation to deep touch or light pressure in either foot. Transfers Functional [place] Measure 0=Not Assessed/NA 4=Minimal Assistance 1=Total Assistance 5=Supervision or Setup 2=Maximal Assistance 6=Modified [place] 3=Moderate Assistance 7=Complete [place] Transfers (B, C, W/C) (FIM): 4 Scootin Rollin Supine to/from Sit: 4 Sit to/from Stand: 5 Pt requires Min Assist to come to sitting from supine. Good technique for sit to stand if rail or arm rests are present. Gait Mode of Locomotion: Walk Anticipated Mode of Locomotion: Walk Distance (FIM): 1=up to 49 ft Distance: 15 Gait Level of Assist: 4 Gait Persons Needed: 1 Gait Assistive Device: FWW Comments/Gait Description Needs cues to slow down and use caution due to neuropathy. He is at risk for falls due to trip or balance loss. Balance Sitting Static: Normal Sitting Dynamic: Normal Standing Static: Poor Standing Dynamic: Poor Assessment/Needs Pt is deconditioned due to inactivity and multiple medical conditions. He is at fall risk due to LE neuropathy and weakness. Pt will benefit from therapy to improve safety awareness and work on gait with FWW. Rehab Potential: Fair Equipment Needs bariatric FWW PT Box Sealing Machine Operator Goals Box Sealing Machine Operator Goals PT Box Sealing Machine Operator Goals Time Frame: Mar 25, 2016 Transfers (B,C,W/C) (FIM): 5 Gait (FIM): 5 Gait distance (FIM): 0=874-13 ft Distance: 50 Gait Level of Assist: 5 Gait Assistive Device: FWW Ambulate with assistance of or other for O2 tank. PT Plan Problem List Problem List: Activity Tolerance, Functional Strength, Safety, Gait, Transfer, Bed Mobility Treatment/Plan Treatment Plan: Continue Plan of Care Treatment Plan: Bed Mobility, Functional Activity Xander, Functional Strength, Gait, Safety, Transfers Treatment Duration: Mar 30, 2016 # of days/week 6 Visits Per Week: 11 Pt/Family Agrees w/Plan: Yes Safety Risks/Education Patient Education: Gait Training, Transfer Techniques, Safety Issues Teaching Recipient: Patient Teaching Methods: Demonstration, Discussion Discharge Recommendations Therapy D/C Recommendations: Home w/ Family Support Equpiment Recommendations-D/C: Front Wheeled Walker Target Placement home with Time/GCodes Time In: 920 Time Out: 1000 Total Billed Treatment Time: 40 Total Billed Treatment visit, EVAL Moderate Complexity 40 minutes G Codes Necessary: No MONTEZ HIGH PT Mar 23, 2016 10:06
--- NOTE | 2016-03-23 10:51 | Cardiology Progress Note ---
Subjective Subjective/Events-last exam Patient in bed. No new complaints. Continues to complain of swelling in his legs. Denies any CP or dyspnea. Review of Systems General: No Night Sweats, No Fatigue, No Malaise HEENT: No Visual Changes, No Dysphasia, No Sore Throat Pulmonary: Dyspnea Cough Cardiovascular: No: Chest Pain, Orthopnea, Palpitations Gastrointestinal: No: Abdominal Pain, Nausea, Vomiting Genitourinary: No Dysuria, No Frequency Musculoskeletal: : leg painNo: back pain, neck pain Neurological: : WeaknessNo: Change in speech, Confusion, Numbness Objective-Cardiology Exam Last Set of Vital Signs Vital Signs 03/23/16 08:00 Temp 98.0 Pulse 74 Resp 16 B/P 140/75 Pulse Ox 97 O2 Delivery Nasal Cannula O2 Flow Rate 3.00 Capillary Refill : Less Than 3 Seconds I&O Intake and Output 03/23/16 00:00 Intake Total 3750 ml Output Total 3300 ml Balance 450 ml Intake Oral 2850 ml IV Total 900 ml Output Urine Total 3300 ml General: Alert, Oriented X3, Cooperative HEENT: Atraumatic, PERRLA Neck: Supple, No JVD, No Thyromegaly Lungs: Other (decreased breath sounds) Heart: Regular Rate, Normal S1, Normal S2 Abdomen: Normal Bowel Sounds, Soft, No Tenderness Extremities: Other (+2 edema BLE) Skin: No Rashes, No Significant Lesion Neuro: Normal Speech, Cranial Nerves 3-12 NL Psych/Mental Status: Mental Status NL Results Lab Laboratory Tests 03/23/16 05:54 A/P-Cardiology Admission Diagnosis Anasarca ETOHism CAD HTN Assessment/Plan Anasarca- continue to diurese. Planning for venous insufficiency scan as outpatient. ETOHism- patient admits to drinking large amount of vodka on a daily basis. States no desire to quit drinking. Alcohol withdrawal protocol has been initiated. Hepaticsplenomegaly and hepatic steatosis on Abdominal US Coronary artery disease with history of CABG x 3 done in May 2011 with BARROSO to the left anterior descending artery, vein graft to the obtuse marginal, vein graft to the diagonal. Most recent stress test done March 2014 was negative for ischemia or infarct. Clinically stable, continue to monitor. COPD, severe, maintained on oxygen,History of acute respiratory failure following surgery requiring prolonged ventilation. Managed by Dr. Suh Obstructive sleep apnea using Bi-PAP Carotid artery stenosis-severe right ICA stenosis, left less than 40 percent. Patient underwent carotid duplex today revealing right carotid artery stenosis of 60-79 percent. Has had CTA done in June 2015 revealing right ICA stenosis of 80 percent. Planning to see Dr. Haskins as an outpatient Acute renal insufficiency- continue to monitor renal function Anemia- continue to monitor. Morbid obesity BMI is 45, discussed weight loss. Hypertension-controlled. Continue to monitor. Hyperlipidemia, mildly elevated LDL. Patient is maintained on statin. Repeat lipids this month. History of elevated LFTs- Likely related to history of EtOH use. Continue to monitor. Left atrial dilatation, Diastolic dysfunction , Left ventricular hypokinesia with a normal ejection fraction of 50%. Continue to monitor. Chronic peripheral edema, continue to diurese, continue to monitor Diabetes mellitus, followed and managed by primary care physician History of anaphylactic reaction to Benazepril Occasional rare palpitations Clinical Quality Measures DVT/VTE Risk/Contraindication: Risk Factor Score Per Nursin RFS Level Per Nursing on Admit: 4+=Very High NALDO WARD Mar 23, 2016 10:50
[2016-03-23 12:00] VITALS: BP 140/66
--- NOTE | 2016-03-23 14:28 | Physical Therapy Daily Note ---
PT Daily Note-Current Subjective Patient agreeable to exercise. Mental Status Patient Orientation: Normal For Age Attachments: Oxygen Transfers Functional [place] Measure 0=Not Assessed/NA 4=Minimal Assistance 1=Total Assistance 5=Supervision or Setup 2=Maximal Assistance 6=Modified [place] 3=Moderate Assistance 7=Complete IndependenceIRFPAI Quality Coding Scale 6 Independent with activity with or without an assistive device 5 Patient requires set up or clean up by helper. Patient completes activity by themselves 4 Supervision or touching assist (CGA). [place] provide cues , steadying assist 3 The helper provides less than half the effort to complete the activity 2 The helper provides more than half the effort to complete the activity 1 Dependent. The helper does all the effort to complete an activity 7 Patient refused to complete or attempt activity 9 The patient did not perform the activity before the current illness or injury 88 Not attempted due to Medical conditions or safety concerns Transfers (B, C, W/C) (FIM): 4 Scootin Sit to/from Stand: 4 Bed to/from Chair: 4 Cues to reach for hand rails on chair when going from stand to sit. Gait Training Gait (FIM): 2 Distance (FIM): 3=532-75 ft Distance: 90 Gait Level of Assist: 4 Gait Persons Needed: 2 Gait Assistive Device: FWW 3 rounds of 90ft with FWW followed by w/c. O2 on at 3L/min. Education to slow down and secure his foot placement due to neuropathy. Assessment Current Status: Good Progress Pt's mobility is improving since admission. Bed mobility improved since his am treatment. PT Detention Goals Advanced Solutions Architect Goals PT Advanced Solutions Architect Goals Time Frame: Mar 25, 2016 Transfers (B,C,W/C) (FIM): 5 Gait (FIM): 5 Gait distance (FIM): 8=768-66 ft Distance: 50 Gait Level of Assist: 5 Gait Assistive Device: FWW PT Plan Treatment/Plan Treatment Plan: Continue Plan of Care Treatment Plan: Bed Mobility, Functional Activity Xander, Functional Strength, Gait, Safety, Transfers Treatment Duration: Mar 30, 2016 Visits Per Week: 11 Safety Risks/Education Patient Education: Gait Training, Safety Issues Teaching Recipient: Patient Time/GCodes Time In: 1400 Time Out: 1425 Total Billed Treatment Time: 25 Total Billed Treatment visit, gait 25 min MONTEZ HIGH PT Mar 23, 2016 14:28
--- NOTE | 2016-03-23 15:39 | Cardiology Progress Note ---
Subjective Subjective/Events-last exam patient is laying down in bed, feeling better, exercise today with physical therapy, Results of the ultrasound were reviewed with the patient Review of Systems General: No Chills, No Night Sweats, No Fatigue, No Malaise, No Appetite, No Other HEENT: No Head Aches, No Visual Changes, No Eye Pain, No Ear Pain, No Dysphasia , No Sinus Congestion, No Post Nasal Drip, No Sore Throat, No Other Pulmonary: DyspneaNo Cough, No Pleuritic Chest Pain, No Other Cardiovascular: : EdemaNo: Chest Pain, Lt Headedness, Orthopnea, Other, Palpitations, Paroxysmal Noc. Dyspnea Objective-Cardiology Exam Last Set of Vital Signs Vital Signs 03/23/16 03/23/16 12:00 14:27 Temp 98.9 Pulse 82 Resp 18 B/P 140/66 Pulse Ox 95 O2 Delivery Nasal Cannula O2 Flow Rate 3.00 Capillary Refill : Less Than 3 SecondsLess Than 3 Seconds I&O Intake and Output 03/23/16 00:00 Intake Total 3750 ml Output Total 3300 ml Balance 450 ml Intake Oral 2850 ml IV Total 900 ml Output Urine Total 3300 ml General: Alert, Oriented X3, Cooperative HEENT: Atraumatic, PERRLA Neck: Supple, No JVD, No Thyromegaly Lungs: Other (decreased breath sounds) Heart: Regular Rate, Normal S1, Normal S2 Abdomen: Normal Bowel Sounds, Soft, No Tenderness Extremities: Other (+2 edema BLE) Skin: No Rashes, No Significant Lesion Neuro: Normal Speech, Cranial Nerves 3-12 NL Psych/Mental Status: Mental Status NL Results Lab Laboratory Tests 03/23/16 05:54 A/P-Cardiology Admission Diagnosis Anasarca ETOHism CAD HTN Assessment/Plan Peripheral edema, no ascites was noted by ultrasound. Continue with diuretics. Consider using lower extremity wrapping in addition to the diuretics, monitor electrolytes closely. ETOHism- patient admits to drinking large amount of vodka on a daily basis. States no desire to quit drinking. Alcohol withdrawal protocol has been initiated. Hepatosplenomegaly and hepatic steatosis on Abdominal US, probably secondary to alcoholism. Managed by primary care physician Coronary artery disease with history of CABG x 3 done in May 2011 with BARROSO to the left anterior descending artery, vein graft to the obtuse marginal, vein graft to the diagonal. Most recent stress test done March 2014 was negative for ischemia or infarct. Clinically stable, continue to monitor. COPD, severe, maintained on oxygen,History of acute respiratory failure following surgery requiring prolonged ventilation. Managed by Dr. Suh Obstructive sleep apnea using Bi-PAP Carotid artery stenosis-severe right ICA stenosis, left less than 40 percent. Patient underwent carotid duplex today revealing right carotid artery stenosis of 60-79 percent. Has had CTA done in June 2015 revealing right ICA stenosis of 80 percent. Planning to see Dr. Haskins as an outpatient Acute renal insufficiency- continue to monitor renal function Anemia- continue to monitor. Morbid obesity BMI is 45, discussed weight loss. Hypertension-controlled. Continue to monitor. Hyperlipidemia, mildly elevated LDL. Patient is maintained on statin. Repeat lipids this month. History of elevated LFTs- Likely related to history of EtOH use. Continue to monitor. Left atrial dilatation, Diastolic dysfunction , Left ventricular hypokinesia with a normal ejection fraction of 50%. Continue to monitor. Chronic peripheral edema, continue to diurese, continue to monitor Diabetes mellitus, followed and managed by primary care physician History of anaphylactic reaction to Benazepril Occasional rare palpitations Clinical Quality Measures DVT/VTE Risk/Contraindication: Risk Factor Score Per Nursin RFS Level Per Nursing on Admit: 4+=Very High NHUNG GALAVIZ MD Mar 23, 2016 15:39
[2016-03-23 15:40] VITALS: BP 133/62
[2016-03-23 20:15] VITALS: BP 136/67
[2016-03-23] MEDS: meTOproloL SUCCINATE 50 MG (TOPROL XL) TAB PO SCH (20:31)
[2016-03-23] MEDS: ASPIRIN E.C. 81 MG (ECOTRIN) TAB PO SCH (20:31)
[2016-03-23] MEDS: ACETAMINOPHEN 325 MG TABLET/CAPLET (TYLENOL) PO PRN (22:17)
[2016-03-24] VITALS: BP 139/71
[2016-03-24 04:00] VITALS: BP 143/80
[2016-03-24] MEDS: THIAMINE 100 MG (VITAMIN B-1) TAB PO SCH (06:49)
[2016-03-24] MEDS: inSUlin ASPART (NovoLOG) 1 UNIT/0.01 ML (CHARGE PER UNIT) SC SCH ×3 (06:49→16:24)
[2016-03-24] MEDS: CATHETER FLUSH 10 ML SYR IV SCH ×3 (06:49→20:23)
[2016-03-24] MEDS: MULTIVIT W/MINERALS TAB (THERAGRAN M) PO SCH (06:49)
[2016-03-24] MEDS: RT-ALBUTEROL/IPRATROPIUM 3 ML (DUONEB) VIAL INH SCH ×4 (07:16→18:43)
[2016-03-24] MEDS: UMECLIDINIUM BROMIDE (INCRUSE ELLIPTA) 7'S IH SCH (07:16)
[2016-03-24] MEDS: RT-ADVAIR HFA 115/21 MCG PER PUFF IH SCH ×2 (07:16→18:46)
[2016-03-24 07:44] LABS: ANION GAP 10 MMOL/L (5-14); BLOOD UREA NITROGEN 6 MG/DL (7-18); BUN/CREATININE RATIO 5; CALCIUM 8.3 MG/DL (8.5-10.1); CARBON DIOXIDE 26 MMOL/L (21-32); CHLORIDE 100 MMOL/L (98-107); CREATININE SERUM 1.12 MG/DL (0.60-1.30); GFR ESTIMATED > 60; GLUCOSE 177 MG/DL (70-105); MAGNESIUM 1.8 MG/DL (1.8-2.4); POTASSIUM 3.8 MMOL/L (3.6-5.0); SODIUM 136 MMOL/L (135-145)
[2016-03-24 08:00] VITALS: BP 141/66
--- NOTE | 2016-03-24 08:48 | Progress Note-Hospitalist ---
Subjective HPI/CC On Admission Mr. Boucher this 61-year-old white male with long-standing history of alcoholism who had been feeling increasingly weak with several falls over the weekend. He developed progressive fluid retention over the past several weeks. His believe this diamante symptoms had been getting worse with the addition of Sinemet and gabapentin that had been initiated in the past month for tremor and lower extremity pain. Patient has diabetes with neuropathy. He had been treated by Dr. Basilio the local packaging line attendant for an ulcer on the volar aspect of his third toe not felt to be infected it did been dressed and debridement did yesterday. He was unable to get to the bathroom due to weakness prompting his emergency room visit. He was in the hospital several months ago for similar admission with anasarca at which time over 50 pounds of fluid was mobilized. He reports drinking nearly a 2 L of vodka daily and reports absolutely no desire to quit. Date Seen 03/24/16 Objective Exam Vital Signs Vital Sign - Last 12Hours 03/21/16 03/21/16 03/21/16 16:47 20:06 20:40 Temp 99.4 Pulse 83 Resp 18 B/P 137/73 Pulse Ox 98 O2 Delivery Nasal Cannula O2 Flow Rate 3 Capillary Refill : Less Than 3 SecondsLess Than 3 Seconds General Appearance: Chronically ill Obese Respiratory: Chest Non Tender Wheezing (Mild on expiration only) Cardiovascular: Regular Rate, Rhythm No Gallop No Murmur Other (3+ decreasing erythema) Results/Procedures Lab Assessment/Plan Assessment and Plan Assess & Plan/Chief Complaint 1. anasarca improving discussed obtaining an accurate weight with nursing staff. We will increase Aldactone to 50 mg twice a day. 2. Deconditioning improving per patient will need to discuss this with physical therapy. He apparently was up in the halls ambulating with a walker yesterday. Will consider discharge tomorrow if he is truly ambulating independently with a walker. Had a long discussion with the patient and his about discharge with home care and home PT. SOO PERSAUD MD Mar 24, 2016 08:48
[2016-03-24] MEDS: KCL 20 MEQ TAB (K-DUR) PO SCH ×2 (09:29→18:11)
[2016-03-24] MEDS: inSUlin DETERMIR 1 UNIT/0.01 ML (LEVEMIR) CHARGE PER UNIT SQ SCH ×2 (09:29→21:24)
[2016-03-24] MEDS: SPIRONOLACTONE 25 MG (ALDACTONE) TAB PO SCH ×2 (09:29→20:21)
[2016-03-24] MEDS: FOLIC ACID 1 MG TAB PO SCH (09:29)
[2016-03-24] MEDS: CLOPIDOGREL 75 MG (PLAVIX) TABLET PO SCH (09:29)
[2016-03-24] MEDS: MAGNESIUM OXIDE (MAG-OX)400 MG TAB PO SCH ×2 (09:29→20:22)
[2016-03-24] MEDS: FUROSEMIDE 40 MG/4 ML INJ (LASIX) IVP SCH (09:29)
[2016-03-24] MEDS: ATORVASTATIN 40 MG (LIPITOR) TABLET PO SCH (09:29)
--- NOTE | 2016-03-24 11:34 | Physical Therapy Daily Note ---
PT Daily Note-Current Subjective Agreeble to therapy. Pt reports he hopes to go home tomorrow. Mental Status Attachments: Oxygen Transfers Functional [place] Measure 0=Not Assessed/NA 4=Minimal Assistance 1=Total Assistance 5=Supervision or Setup 2=Maximal Assistance 6=Modified [place] 3=Moderate Assistance 7=Complete IndependenceIRFPAI Quality Coding Scale 6 Independent with activity with or without an assistive device 5 Patient requires set up or clean up by helper. Patient completes activity by themselves 4 Supervision or touching assist (CGA). [place] provide cues , steadying assist 3 The helper provides less than half the effort to complete the activity 2 The helper provides more than half the effort to complete the activity 1 Dependent. The helper does all the effort to complete an activity 7 Patient refused to complete or attempt activity 9 The patient did not perform the activity before the current illness or injury 88 Not attempted due to Medical conditions or safety concerns Transfers (B, C, W/C) (FIM): 4 Rollin Supine to/from Sit: 4 Sit to/from Stand: 5 Bed to/from Chair: 5 Pt able to initiate in and out of bed. He needs minimal assist to come from a supine position to a sitting position. He needs a hand hold and then he can pull himself to sitting at edge of bed. Gait Training Gait (FIM): 2 Distance (FIM): 6=811-03 ft Distance: 150 Gait Level of Assist: 4 Gait Persons Needed: 1 Gait Assistive Device: FWW Ambulated 100ft with FWW and O2 at 3L followed by w/c. He took a 1 minutes seated rest and then repeated. He was stable on level surfaces and demonstrated appropriate use of the FWW. Assessment Pt demonstrated improved mobility from yesterday with increased ease of effort and increased distance. PT Tender Labor Goals Fpc Goals PT Fpc Goals Time Frame: Mar 25, 2016 Transfers (B,C,W/C) (FIM): 5 Gait (FIM): 5 Gait distance (FIM): 5=305-30 ft Distance: 50 Gait Level of Assist: 5 Gait Assistive Device: FWW PT Plan Treatment/Plan Treatment Plan: Continue Plan of Care Treatment Plan: Bed Mobility, Functional Activity Xander, Functional Strength, Gait, Safety, Transfers Treatment Duration: Mar 30, 2016 Visits Per Week: 11 Discharge Recommendations Therapy D/C Recommendations: Home w/ Family Support, Physical Therapy Home Care Equpiment Recommendations-D/C: Front Wheeled Walker Time/GCodes Time In: 945 Time Out: 1010 Total Billed Treatment Time: 20 Total Billed Treatment visit, gait 20 minutes MONTEZ HIGH PT Mar 24, 2016 11:33
[2016-03-24 12:00] VITALS: BP 161/70
[2016-03-24] MEDS ORDERED: LIDOCAINE TOPICAL 4% 50 ML BTL TP NR (13:30)
[2016-03-24 15:40] VITALS: BP 174/73
--- NOTE | 2016-03-24 17:05 | Cardiology Progress Note ---
Subjective Subjective/Events-last exam patient is sitting in a chair, still having significant edema. Denied any chest pain, still complaining of generalized weakness Review of Systems General: No Chills, No Night Sweats, Fatigue MalaiseNo Appetite, No Other HEENT: No Head Aches, No Visual Changes, No Eye Pain, No Ear Pain, No Dysphasia , No Sinus Congestion, No Post Nasal Drip, No Sore Throat, No Other Pulmonary: Dyspnea CoughNo Pleuritic Chest Pain, No Other Cardiovascular: : EdemaNo: Chest Pain, Lt Headedness, Orthopnea, Other, Palpitations, Paroxysmal Noc. Dyspnea Objective-Cardiology Exam Last Set of Vital Signs Vital Signs 03/24/16 03/24/16 03/24/16 08:32 12:00 14:45 Temp 97.3 Pulse 81 Resp 20 B/P 161/70 Pulse Ox 90 O2 Delivery Nasal Cannula O2 Flow Rate 3.00 Capillary Refill : Less Than 3 SecondsLess Than 3 Seconds I&O Bad tableGeneral: Alert, Oriented X3, Cooperative HEENT: Atraumatic, PERRLA Neck: Supple, No JVD, No Thyromegaly Lungs: Other (decreased breath sounds) Heart: Regular Rate, Normal S1, Normal S2 Abdomen: Normal Bowel Sounds, Soft, No Tenderness Extremities: Other (+2 edema BLE) Skin: No Rashes, No Significant Lesion Neuro: Normal Speech, Cranial Nerves 3-12 NL Psych/Mental Status: Mental Status NL Results Lab Laboratory Tests 03/24/16 06:31 A/P-Cardiology Admission Diagnosis Anasarca ETOHism CAD HTN Assessment/Plan Peripheral edema, no ascites was noted by ultrasound. Continue with diuretics. Consider using lower extremity wrapping in addition to the diuretics, monitor electrolytes closely. ETOHism- patient admits to drinking large amount of vodka on a daily basis. States no desire to quit drinking. Alcohol withdrawal protocol has been initiated. Hepatosplenomegaly and hepatic steatosis on Abdominal US, probably secondary to alcoholism. Managed by primary care physician Coronary artery disease with history of CABG x 3 done in May 2011 with BARROSO to the left anterior descending artery, vein graft to the obtuse marginal, vein graft to the diagonal. Most recent stress test done March 2014 was negative for ischemia or infarct. Clinically stable, continue to monitor. COPD, severe, maintained on oxygen,History of acute respiratory failure following surgery requiring prolonged ventilation. Managed by Dr. Suh Obstructive sleep apnea using Bi-PAP Carotid artery stenosis-severe right ICA stenosis, left less than 40 percent. Patient underwent carotid duplex today revealing right carotid artery stenosis of 60-79 percent. Has had CTA done in June 2015 revealing right ICA stenosis of 80 percent. Planning to see Dr. Haskins as an outpatient Acute renal insufficiency- continue to monitor renal function Anemia- continue to monitor. Morbid obesity BMI is 45, discussed weight loss. Hypertension-controlled. Continue to monitor. Hyperlipidemia, mildly elevated LDL. Patient is maintained on statin. Repeat lipids this month. History of elevated LFTs- Likely related to history of EtOH use. Continue to monitor. Left atrial dilatation, Diastolic dysfunction , Left ventricular hypokinesia with a normal ejection fraction of 50%. Continue to monitor. Chronic peripheral edema, continue to diurese, continue to monitor Diabetes mellitus, followed and managed by primary care physician History of anaphylactic reaction to Benazepril Occasional rare palpitations Clinical Quality Measures DVT/VTE Risk/Contraindication: Risk Factor Score Per Nursin RFS Level Per Nursing on Admit: 4+=Very High NHUNG GALAVIZ MD Mar 24, 2016 17:05
[2016-03-24] MEDS: ASPIRIN E.C. 81 MG (ECOTRIN) TAB PO SCH (20:21)
[2016-03-24] MEDS: meTOproloL SUCCINATE 50 MG (TOPROL XL) TAB PO SCH (20:22)
[2016-03-24] MEDS: ACETAMINOPHEN 325 MG TABLET/CAPLET (TYLENOL) PO PRN (20:22)
[2016-03-24 20:30] VITALS: BP 133/70
[2016-03-25] VITALS: BP 157/69
[2016-03-25 04:06] VITALS: BP 169/84
[2016-03-25] MEDS: CATHETER FLUSH 10 ML SYR IV SCH ×2 (05:43→11:42)
[2016-03-25] MEDS: TRIM/SULFAMETH 160/800 (SEPTRA DS) TAB PO SCH (06:09)
[2016-03-25] MEDS: MULTIVIT W/MINERALS TAB (THERAGRAN M) PO SCH (06:09)
[2016-03-25] MEDS: inSUlin ASPART (NovoLOG) 1 UNIT/0.01 ML (CHARGE PER UNIT) SC SCH ×2 (06:12→11:24)
[2016-03-25] MEDS: RT-ALBUTEROL/IPRATROPIUM 3 ML (DUONEB) VIAL INH SCH ×3 (06:59→14:16)
[2016-03-25] MEDS: RT-ADVAIR HFA 115/21 MCG PER PUFF IH SCH (07:00)
[2016-03-25] MEDS: UMECLIDINIUM BROMIDE (INCRUSE ELLIPTA) 7'S IH SCH (07:01)
[2016-03-25 08:00] VITALS: BP 142/63
[2016-03-25] MEDS: FOLIC ACID 1 MG TAB PO SCH (09:21)
[2016-03-25] MEDS: KCL 20 MEQ TAB (K-DUR) PO SCH (09:21)
[2016-03-25] MEDS: ATORVASTATIN 40 MG (LIPITOR) TABLET PO SCH (09:21)
[2016-03-25] MEDS: CLOPIDOGREL 75 MG (PLAVIX) TABLET PO SCH (09:21)
[2016-03-25] MEDS: inSUlin DETERMIR 1 UNIT/0.01 ML (LEVEMIR) CHARGE PER UNIT SQ SCH (09:21)
[2016-03-25] MEDS: SPIRONOLACTONE 25 MG (ALDACTONE) TAB PO SCH (09:21)
--- NOTE | 2016-03-25 09:44 | Physical Therapy Daily Note ---
PT Daily Note-Current Subjective Pt agreeable. Pt denies pain. Mental Status Patient Orientation: Person, Place, Situation Transfers Functional [place] Measure 0=Not Assessed/NA 4=Minimal Assistance 1=Total Assistance 5=Supervision or Setup 2=Maximal Assistance 6=Modified [place] 3=Moderate Assistance 7=Complete IndependenceIRFPAI Quality Coding Scale 6 Independent with activity with or without an assistive device 5 Patient requires set up or clean up by helper. Patient completes activity by themselves 4 Supervision or touching assist (CGA). [place] provide cues , steadying assist 3 The helper provides less than half the effort to complete the activity 2 The helper provides more than half the effort to complete the activity 1 Dependent. The helper does all the effort to complete an activity 7 Patient refused to complete or attempt activity 9 The patient did not perform the activity before the current illness or injury 88 Not attempted due to Medical conditions or safety concerns Mod (I) bed mobility and transfers Gait Training Gait Assistive Device: FWW Pt amb with FWW and O2 at 3L/min 2 x 150ft, seated rest break at [place] x 1 min due to LE fatigue. Treatments Pt seen for gait training in [facility]. Assessment Current Status: Good Progress Pt able to increase distance today. Pt cherie well with rest breaks as needed. No complaints voiced. Pt recovers quickly. Pt O2 insitu post therapy. Pt in care of nurse post therapy session. PT Fdc Goals Manager Commodities Goals PT Manager Commodities Goals Time Frame: Mar 25, 2016 Transfers (B,C,W/C) (FIM): 5 Gait (FIM): 5 Gait distance (FIM): 9=269-09 ft Distance: 50 Gait Level of Assist: 5 Gait Assistive Device: FWW PT Plan Treatment/Plan Treatment Plan: Continue Plan of Care Treatment Plan: Bed Mobility, Functional Activity Xander, Functional Strength, Gait, Safety, Transfers Treatment Duration: Mar 30, 2016 Visits Per Week: 11 Time/GCodes Time In: 815 Time Out: 840 Total Billed Treatment Time: 25 Total Billed Treatment 1, 25 min HU Hernandez CPTA Mar 25, 2016 09:43
--- NOTE | 2016-03-25 11:36 | Cardiology Progress Note ---
Subjective Subjective/Events-last exam patient is sitting in a chair, eating lunch, reporting improvement, denied any chest pain, no palpitation. Still having wounds on his legs Review of Systems General: No Chills, No Night Sweats, No Fatigue, No Malaise, No Appetite, No Other HEENT: No Head Aches, No Visual Changes, No Eye Pain, No Ear Pain, No Dysphasia , No Sinus Congestion, No Post Nasal Drip, No Sore Throat, No Other Pulmonary: DyspneaNo Cough, No Pleuritic Chest Pain, No Other Cardiovascular: : EdemaNo: Chest Pain, Lt Headedness, Orthopnea, Other, Palpitations, Paroxysmal Noc. Dyspnea Objective-Cardiology Exam Last Set of Vital Signs Vital Signs 03/25/16 03/25/16 08:00 10:27 Temp 97.4 Pulse 80 Resp 20 B/P 142/63 Pulse Ox 98 O2 Delivery Nasal Cannula O2 Flow Rate 3.00 Capillary Refill : Less Than 3 SecondsLess Than 3 Seconds I&O Bad tableGeneral: Alert, Oriented X3, Cooperative HEENT: Atraumatic, PERRLA Neck: Supple, No JVD, No Thyromegaly Lungs: Other (decreased breath sounds) Heart: Regular Rate, Normal S1, Normal S2 Abdomen: Normal Bowel Sounds, Soft, No Tenderness Extremities: Other (+2 edema BLE) Skin: No Rashes, No Significant Lesion Neuro: Normal Speech, Cranial Nerves 3-12 NL Psych/Mental Status: Mental Status NL Results Lab Laboratory Tests Test 03/24/16 15:46 03/24/16 21:12 03/25/16 05:34 Range/Units Glucometer 205 H 175 H 175 H 70-110 MG/DL A/P-Cardiology Admission Diagnosis Anasarca ETOHism CAD HTN Assessment/Plan Peripheral edema, no ascites was noted by ultrasound. Continue with diuretics. Consider using lower extremity wrapping in addition to the diuretics. I change Lasix to oral, okay for discharge from cardiac standpoint Alcoholism- patient admits to drinking large amount of vodka on a daily basis, managed by primary care physician Hepatosplenomegaly and hepatic steatosis on Abdominal US, probably secondary to alcoholism. Managed by primary care physician Coronary artery disease with history of CABG x 3 done in May 2011 with BARROSO to the left anterior descending artery, vein graft to the obtuse marginal, vein graft to the diagonal. Most recent stress test done March 2014 was negative for ischemia or infarct. Clinically stable, continue to monitor. COPD, severe, maintained on oxygen,History of acute respiratory failure following surgery requiring prolonged ventilation. Managed by Dr. Suh Obstructive sleep apnea using Bi-PAP Carotid artery stenosis-severe right ICA stenosis, left less than 40 percent. Patient underwent carotid duplex today revealing right carotid artery stenosis of 60-79 percent. Has had CTA done in June 2015 revealing right ICA stenosis of 80 percent. Planning to see Dr. Haskins as an outpatient Acute renal insufficiency- continue to monitor renal function Anemia- continue to monitor. Morbid obesity BMI is 45, discussed weight loss. Hypertension-controlled. Continue to monitor. Hyperlipidemia, mildly elevated LDL. Patient is maintained on statin. Repeat lipids this month. History of elevated LFTs- Likely related to history of EtOH use. Continue to monitor. Left atrial dilatation, Diastolic dysfunction , Left ventricular hypokinesia with a normal ejection fraction of 50%. Continue to monitor. Chronic peripheral edema, continue to diurese, continue to monitor Diabetes mellitus, followed and managed by primary care physician History of anaphylactic reaction to Benazepril Occasional rare palpitations Clinical Quality Measures DVT/VTE Risk/Contraindication: Risk Factor Score Per Nursin RFS Level Per Nursing on Admit: 4+=Very High NHUNG GALAVIZ MD Mar 25, 2016 11:36
[2016-03-25] MEDS ORDERED: FUROSEMIDE 40 MG (LASIX) TAB PO SCH (11:45)
[2016-03-25] MEDS ORDERED: BUME2TAB3 PO (12:38)
[2016-03-25] MEDS ORDERED: SPIR50TA PO (12:38)
[2016-03-25] MEDS ORDERED: SENN1TAB93 PO (12:39)
--- NOTE | 2016-03-25 12:45 | Discharge Inst-Skilled Nursing ---
Discharge Inst-Skilled NF Chief Complaint Mr. Boucher this 61-year-old white male with long-standing history of alcoholism who had been feeling increasingly weak with several falls over the weekend. He developed progressive fluid retention over the past several weeks. His believe this diamante symptoms had been getting worse with the addition of Sinemet and gabapentin that had been initiated in the past month for tremor and lower extremity pain. Patient has diabetes with neuropathy. He had been treated by Dr. Basilio the local chief operations officer for an ulcer on the volar aspect of his third toe not felt to be infected it did been dressed and debridement did yesterday. He was unable to get to the bathroom due to weakness prompting his emergency room visit. He was in the hospital several months ago for similar admission with anasarca at which time over 50 pounds of fluid was mobilized. He reports drinking nearly a 2 L of vodka daily and reports absolutely no desire to quit. Consult/Follow Up/Orders Skilled NF Admit to: [facility] Certification ([facility]) I certify that SNF services are required to be given on an inpatient basis because of the above named patient's need for custodial care on a continuing basis for the conditions(s) for which he/she was receiving inpatient hospital services prior to his/her transfer to the SNF. Assisted Facility Order: Improvement Director-Evaluate & Treat, Physical Therapy-Evaluate & Treat Discharge Diet: Low Sodium Diet, ADA Diet Daily Activity as Tolerated: Yes New & Resume Previous Orders Other Instructions bmp and mg level on 03/28. Pt has appt with DR. Basilio for foot ulcer care . Titrate O2 per NC to keep Sats 90 or Greater. Nadeem Persaud Mar 25, 2016 12:41 NADEEM PERSAUD MD Mar 25, 2016 12:45
== END 2016-03-25 15:41 | DRG 433 ==
LOC: EDUNIT# 14:59 → ER 15:00 → 4TH 19:05
PROVIDERS: ADMIT Internal Medicine; ATTEND Internal Medicine
DX: K70.30 Alcoholic cirrhosis of liver without ascites (principal); K76.6 Portal hypertension; R60.1 Generalized edema; E66.2 Morbid (severe) obesity with alveolar hypoventilation; Z68.41 Body mass index [BMI] 40.0-44.9, adult; I27.2 Other secondary pulmonary hypertension; F10.20 Alcohol dependence, uncomplicated; Z66 Do not resuscitate; E11.40 Type 2 diabetes mellitus with diabetic neuropathy, unspecified; E11.622 Type 2 diabetes mellitus with other skin ulcer; L97.529 Non-pressure chronic ulcer of other part of left foot with unspecified severity; J44.9 Chronic obstructive pulmonary disease, unspecified; G20 Parkinson's disease; E89.0 Postprocedural hypothyroidism; I87.2 Venous insufficiency (chronic) (peripheral); I25.10 Atherosclerotic heart disease of native coronary artery without angina pectoris; I25.2 Old myocardial infarction; I10 Essential (primary) hypertension; K21.9 Gastro-esophageal reflux disease without esophagitis; E78.5 Hyperlipidemia, unspecified; N28.9 Disorder of kidney and ureter, unspecified; D64.9 Anemia, unspecified; Z79.4 Long term (current) use of insulin; Z95.1 Presence of aortocoronary bypass graft; Z95.5 Presence of coronary angioplasty implant and graft; Z87.891 Personal history of nicotine dependence; Z86.73 Personal history of transient ischemic attack (TIA), and cerebral infarction without residual deficits
CPT/HCPCS: 36415; 71010; 76700; 80048; 80053; 80076; 80320; 81000; 82962; 82977; 83605; 83735; 83880; 84439; 84443; 85025; 85610; 94640; 94660; 94664; 94760; 96365

== ENCOUNTER → 2016-08-10 | Outpatient (CLI) | payer MEDICARE ==
[~2016-08-10] MED LIST changes: +BUME2TAB3 PO; +CARB1TAB17 PO; +GABA-490 PO; +REGADENOSON 0.4 MG/5 ML SYR (LEXISCAN) IV ONE; +SENN1TAB93 PO; +SPIR50TA PO; +SULF-222 PO; +TIOT18CA2 IH; +[UNRECOGNIZED DRUG - CODE]
[2016-08-10] MEDS: CATHETER FLUSH 10 ML SYR IV PRN ×2 (07:46→09:20)
[2016-08-10 09:17] VITALS: BP 139/91
== END ==
LOC: CARD 07:29
PROVIDERS: ATTEND Physician Assistant
DX: G47.30 Sleep apnea, unspecified (principal); I25.10 Atherosclerotic heart disease of native coronary artery without angina pectoris; K21.9 Gastro-esophageal reflux disease without esophagitis; I10 Essential (primary) hypertension
CPT/HCPCS: 78452; 93017

== ENCOUNTER 2016-08-17 06:50 | Day surgery (SDC) | payer MEDICARE ==
[2016-08-17] VITALS (19 sets, daily range): BP systolic 108–146; BP diastolic 51–82
[~2016-08-17] VITALS: Ht 188 cm; Wt 153.8 kg
[~2016-08-17 06:50] MED LIST changes: +METO-370 PO; -REGADENOSON 0.4 MG/5 ML SYR (LEXISCAN) IV ONE
[2016-08-17] MEDS ORDERED: NS IV 1000 ML 1,000 ML ONE (06:51)
[2016-08-17] MEDS ORDERED: HEParin (CATH LAB) 2,000 ML IV ONE (06:51)
[2016-08-17] MEDS ORDERED: NS IV 1000 ML 1,000 ML IV SCH (06:57)
[2016-08-17 07:16] LABS: MEAN PLATELET VOLUME 10.4 FL (7.4-10.4); RED BLOOD COUNT 4.09 10^6/uL (4.35-5.85); RED CELL DISTRIBUTION WIDTH 15.4 % (10.0-14.5); WHITE BLOOD COUNT 4.4 10^3/uL (4.3-11.0)
--- NOTE | 2016-08-17 07:24 | Diagnostic Imaging Report ---
INDICATION: Preop for heart catheter. Comparison with 03/21/2016. Rather marked cardiomegaly with median sternotomy changes are again noted. Lungs are well-aerated. No evidence of pulmonary edema or pleural effusion. No consolidated infiltrates. IMPRESSION: 1. Clearing of pulmonary venous congestive changes when compared with previous exam. 2. Cardiomegaly without evidence of failure. Dictated by: Dictated on workstation # [id number]
[2016-08-17 07:26] LABS: INR 1.1 (0.8-1.4); PROTHROMBIN TIME PATIENT 13.6 SEC (12.2-14.7)
[2016-08-17] MEDS ORDERED: OMEG-160 PO (07:28)
[2016-08-17 07:37] LABS: ALBUMIN 4.1 GM/DL (3.2-4.5); BILIRUBIN,TOTAL 0.4 MG/DL (0.1-1.0); CALCIUM 9.6 MG/DL (8.5-10.1); CREATININE SERUM 1.32 MG/DL (0.60-1.30); POTASSIUM 3.7 MMOL/L (3.6-5.0); TOTAL PROTEIN 7.1 GM/DL (6.4-8.2)
[2016-08-17] MEDS ORDERED: ATOR20TA49 PO (08:14)
[2016-08-17] MEDS ORDERED: AMLO10TA2 PO (08:14)
[2016-08-17] MEDS ORDERED: HYDR25TA4 PO (08:14)
[2016-08-17] MEDS ORDERED: LORA10TA7 PO (08:14)
[2016-08-17] MEDS ORDERED: DOCU250C11 PO (08:14)
[2016-08-17] MEDS ORDERED: BUME2TAB3 PO (08:14)
[2016-08-17] MEDS ORDERED: METO-395 PO ×2 (08:14)
[2016-08-17] MEDS ORDERED: MIDAZOLAM 5 MG/5 ML (VERSED) VIAL ONE (08:27)
[2016-08-17] MEDS ORDERED: fentaNYL INJECTION 100 MCG/2 ML AMP ONE (08:27)
--- NOTE | 2016-08-17 08:35 | Cardiac Procedure Note-CS/ASA ---
Pre-Procedure Note Pre-Op Procedure Note H&P Reviewed The H&P was reviewed, patient examined and no changes noted. Date H&P Reviewed: Aug 17, 2016 Time H&P Reviewed: 08:35 Conscious Sedation Pre-Proced Time Reviewed: 08:35 ASA Class: 3 Airway Mallampati Classification: (brevig [place] appropriate class) I. II. III, IV Lungs Heart ASA score ASA 1: a normal healthy patient ASA 2: a patient with a mild systemic disease (mid diabetes, controlled hypertension, obesity x ASA 3: a patient with a severe systemic disease that limits activity (angina , COPD, prior Myocardial infarction) ASA 4: a patient with an incapacitating disease that is a constant threat to life (CHF, renal failure) ASA 5: a moribund patient not expected to survive 24 hrs. (ruptured aneurysm) ASA 6: a declared brain patient whose organs are being harvested. For emergent operations, add the letter E after the classification Grade 3 Sedation Plan: Analgesia, Amnesia, Plan communicated to team members, Discussed options with patient/fam, Discussed risks with patient/fam Note The patient is an appropriate candidate to undergo the planned procedure, sedation, and anesthesia. The patient immediately re-assessed prior to indication. NHUNG GALAVIZ MD Aug 17, 2016 08:35
[2016-08-17] MEDS ORDERED: HEParin 1000 UNIT/ML (10ML VIAL) FOR BOLUS ONE (09:01)
[2016-08-17] MEDS ORDERED: NITROGLYCERIN DRIP 25 MG/D5W 250 ML IV ONE (09:01)
[2016-08-17] MEDS ORDERED: ASPIRIN 325 MG (5 GR) TABLET ONE (09:25)
[2016-08-17] MEDS ORDERED: CLOPIDOGREL 300 MG (PLAVIX) TABLET PO ONE (09:26)
[2016-08-17] MEDS ORDERED: PATIENT MAY USE OWN MEDS, ALL PO SCH (09:30)
--- NOTE | 2016-08-17 09:38 | Cardiac Cath Report ---
Cardiac Cath Report Physician (s)/Industrial Editor (s) Physician NHUNG GALAVIZ MD Pre-Procedure Diagnosis Pre-Procedure Diagnosis: coronary artery disease Post-Procedure Note Procedure Start Date: Aug 17, 2016 Procedure Start Time: 09:00 Name of Procedure: left heart catheter, LV gram, vein graft angiogram, BARROSO angiogram, PTCA to vein graft Findings/Procedure Note PROCEDURE NOTE: After explaining the procedure to the patient, all pros and cons were explained, all questions were answered. The patient signed the consent and then he was placed on the cardiac catheterization laboratory. FINDINGS: The patient was placed on the cardiac catheterization laboratory right groin was prepped SL fashion local anesthesia. 6 Lao sheath in the right femoral artery, Gibson right and left catheter were used to access the coronary system , vein graft and BARROSO Pigtail catheter advanced 11 left cavity, pressure was measured and pullback LV to aorta. Angioplasty report: JR guide was used, 8000 units of heparin were given. BMW wire was advanced, patient has severe stenosis at the anastomosis point of the vein graft to the diagonal artery, multiple balloon inflation using Emerge 3.015 mm was done with excellent results. No residual stenosis. Sheath was removed, Mynx deployed Hemodynamic LV 120/15 end-diastolic pressure 15 Aortic pressure 115/54 mean of 79, no significant gradient Anatomy: Left main has no obstructive disease LAD is occluded, BARROSO to LAD is patent, small vessel disease distally Left circumflex artery is dominant artery, small vessel disease at the distal left PDA, OM1 is occluded, vein graft to OM is patent Vein graft angiogram: Vein graft to OM1 is patent, jump graft to the diagonal artery is patent with 95 percent stenosis at the anastomosis point, alone angioplasty using Emerge 3.0 15 mm done with excellent results, no residual stenosis RCA is small nondominant with no obstructive disease BARROSO to LAD is patent with good flow distally, small vessel disease. Conclusion: Severe disease at the anastomosis point of the vein graft to diagonal artery, successful balloon angioplasty using Amerge 3.015 mm with multiple inflation with excellent results. Patent BARROSO to LAD with good flow distally Patent vein graft to first obtuse marginal branch with good flow distally, off that vein graft there is a vein graft to the diagonal artery that had intervention done. Dominant circumflex artery with moderate disease at the left PDA Mildly elevated left ventricular end-diastolic pressure DISCUSSION AND RECOMMENDATION: patient is loaded on aspirin and Plavix. Continue maximizing medical therapy. Anesthesia Type: Conscious Sedation Estimated blood loss (mL): 20 Contrast Amount: 84 Total Radiation Dose: 1526 Post-Procedure Diagnosis Post-operative diagnosis: coronary artery disease Hypertension Hyperlipidemia NHUNG GALAVIZ MD Aug 17, 2016 09:38
[2016-08-17] MEDS ORDERED: ACETAMINOPHEN 325 MG TABLET/CAPLET (TYLENOL) PO PRN (09:45)
[2016-08-17] MEDS ORDERED: NITROGLYCERIN SUBLINGUAL 0.4 MG TAB (NITROSTAT) SL PRN (09:45)
[2016-08-17] MEDS ORDERED: CATHETER FLUSH 10 ML SYR IV PRN (09:45)
[2016-08-17] MEDS ORDERED: BUMETANIDE 1 MG (BUMEX) TAB PO SCH (10:15)
[2016-08-17] MEDS: NS IV 1000 ML 1,000 ML IV SCH ×2 (10:22→23:35)
[2016-08-17] MEDS: OMEGA 3 (FISH OIL) 1000 MG CAP PO SCH ×2 (12:10→16:57)
[2016-08-17] MEDS: inSUlin ASPART (NovoLOG) 1 UNIT/0.01 ML (CHARGE PER UNIT) SC SCH ×2 (12:18→18:13)
[2016-08-17] MEDS ORDERED: meTOprolol SUCCINATE 100 MG (TOPROL XL) TAB PO SCH (16:00)
--- OUTSIDE RECORDS SUMMARY | 2016-08-17 17:49 | XMS REPORT ---
Author OSITO Godoy [facility] eClinicalWorks Address Unknown Phone Unavailable Care Team Providers Care Tool/Die Maker Name Role Phone OSITO YANCEY CP Unavailable Allergies, Adverse Reactions, Alerts Substance Reaction Event Type Hydrocodone-Acetaminophen Make stupid Drug Allergy Problems Problem Type Condition Code Onset Dates Condition Status Problem Sleep apnea G47.30 Active Problem Hypercholesterolemia E78.0 Active Problem COPD (chronic obstructive pulmonary disease) J44.9 Active Problem GERD (gastroesophageal reflux disease) K21.9 Active Problem HTN (hypertension) I10 Active Problem Diarrhea R19.7 Active Problem Environmental allergies Z91.09 Active Problem CAD (coronary artery disease) I25.10 Active Problem Hypothyroid E03.9 Active Problem 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 Assessment Hypercholesterolemia E78.0 Active Assessment CAD (coronary artery disease) I25.10 Active Assessment COPD (chronic obstructive pulmonary disease) J44.9 Active Assessment Hypothyroid E03.9 Active Assessment HTN (hypertension) I10 Active Assessment Sleep apnea G47.30 Active Assessment GERD (gastroesophageal reflux disease) K21.9 Active Assessment Environmental allergies Z91.09 Active Assessment 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 Medications Medication Code System Code Instructions Start Date End Date Status Dosage Fish Oil [facility] [address]139 1200 MG Orally 3 times a day 1 capsule PredniSONE [facility] [address]-40 20 MG Orally Once a day 1 tablet Metoprolol Tartrate [facility] [address]-45 50 MG Orally Twice a day 1 tablet in am and 2 tab in pm Omeprazole [facility] 27027292857 40 MG TAKE ONE CAPSULE BY MOUTH ONCE DAILY Albuterol Sulfate [facility] 97775562646 (2.5 MG/3ML) 0.083% Inhalation every 4 hours prn 3 ml Lasix [facility] [address]-15 40 mg Orally twice a day August 20, 2015 1 tablet Mucinex Allergy [facility] [address]-18 180 MG Orally 2 times a day not defined Advair Diskus [facility] 95773287920 250-50 MCG/DOSE INHALE ONE PUFF BY MOUTH TWICE DAILY Atorvastatin Calcium [facility] 69241911892 40 MG Orally Once a day 1 tablet Oxygen NDC 0 3 L by inhalation route continious May 12, 2015 1 puff Metformin HCl [facility] 32292888521 1000 MG Orally Twice a day 1 tablet with meals potassium ND 0 Oral Once a day 1 tab 595 mg Ecotrin [facility] [address]-62 325 MG Orally Once a day 1 tablet Lasix [facility] [address]-76 40 MG Orally 2 times a day Mar 16, 2015 1 tablet Bactrim DS [facility] [address]-74 800-160 MG Orally Monday, Monday, and Monday 1 tablet Levothyroxine Sodium [facility] 37141331110 150 MCG Orally Once a day 2 tab Levemir FlexTouch [facility] 71180198183 100 UNIT/ML 2 times a day INJECT 50 UNITS SUBCUTANEOUSLY TWICE DAILY Plavix [facility] [address]-87 75 MG Orally Once a day 1 tablet Spiriva HandiHaler [facility] 75867511188 18 MCG INHALE CONTENTS OF ONE CAPSULE BY MOUTH ONCE DAILY (TWO INHALATIONS PER ONE CAPSULE) Hydrochlorothiazide [facility] 05528438909 25 MG Orally Once a day 1 tablet Amlodipine Besylate [facility] [address]-00 10 MG Orally Once a day 1 tablet NovoLog Flexpen [facility] [address]-60 100 UNIT/ML Subcutaneous 3 times a day INJECT 50 UNITS SUBCUTANEOUSLY THREE TIMES DAILY Procedures Procedure Coding System Code Date Office Visit, Est Pt., Level 4 CPT-4 15843 Jan 01, 2016 GLYCATED HEMOGLOBIN TEST CPT-4 53381 Jan 01, 2016 Vital Signs Date/Time: Jan 01, 2016 Cardiac Monitoring Heart Rate 84 bpm Weight 370.0 lbs Height 72.0 in BMI 50.18 Index Blood Pressure Diastolic 70 mmHg Blood Pressure Systolic 128 mmHg Results Name Result Date Reference Range Unit Abnormality Flag A1C (IN HOUSE) ----A1C IN HOUSE 9.1 20160101 4.3 - 5.6 % ----Previous A1c 7.5 20160101 ----Lot [id number] ----Exp date 20160101 Summary Purpose eClinicalWorks Submission
--- OUTSIDE RECORDS SUMMARY | 2016-08-17 17:50 | XMS REPORT ---
Author OSITO Godoy [facility] eClinicalWorks Address Unknown Phone Unavailable Care Team Providers Care Roofer Vinyl Coating Name Role Phone OSITO YANCEY CP Unavailable Allergies No Known Allergies Problems Problem Type Condition Code Onset Dates [...] Instructions Start Date End Date Status Dosage Lasix [facility] [address]-64 40 MG Orally Once a day Mar 16, 2015 1 tablet Results No Known Results Summary Purpose eClinicalWorks Submission
--- OUTSIDE RECORDS SUMMARY | 2016-08-17 17:50 | XMS REPORT ---
Author OSITO Godoy Organization eClinicalWorks Address Unknown Phone Unavailable Care Team Providers Care Chief Learning Officer Name Role Phone OSITO YANCEY CP Unavailable [...] other 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 Active Medications No Known Medications Results No Known Results Summary Purpose eClinicalWorks Submission
--- OUTSIDE RECORDS SUMMARY | 2016-08-17 17:50 | XMS REPORT ---
Author OSITO Godoy [facility] eClinicalWorks Address Unknown Phone Unavailable Care Team Providers Care Building Code Inspector Name Role Phone OSITO YANCEY CP Unavailable [...] other 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 Active Assessment Diarrhea R19.7 Active Assessment Environmental allergies Z91.09 Active Assessment GERD (gastroesophageal reflux disease) K21.9 Active Assessment COPD (chronic obstructive pulmonary disease) J44.9 Active Assessment HTN (hypertension) I10 Active Assessment Hypercholesterolemia E78.0 Active Assessment Hypothyroid E03.9 Active Assessment Sleep apnea G47.30 Active Assessment 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 Medications Medication Code System Code Instructions Start Date End Date Status Dosage Hydrochlorothiazide [facility] [address]-79 25 MG Orally Once a day Feb 02, 2015 1 tablet Advair Diskus [facility] [address]-00 250-50 MCG/DOSE Inhalation Twice a day Feb 16, 2015 1 puff Omeprazole [facility] [address]-61 40 MG Orally Once a day 1 capsule Zyrtec Allergy [facility] [address]-27 10 MG Orally Once a day Feb 23, 2015 May 24, 2015 1 tablet Mucinex Allergy [facility] [address]-99 180 MG Orally 2 times a day not defined Levemir FlexTouch [facility] [address]-78 100 UNIT/ML Subcutaneous 2times per days Jan 28, 2015 32units Levothyroxine Sodium [facility] [address]-41 150 MCG Orally Once a day Feb 02, 2015 2 tab Atorvastatin Calcium [facility] [address]-98 40 MG Orally Once a day Feb 02, 2015 1 tablet Albuterol Sulfate [facility] [address]-02 0.3% Inhalation every 4 hrs not defined Metformin HCl [facility] [address]-82 1000 MG Orally Twice a day Jan 27, 2015 1 tablet with meals Amlodipine Besylate [facility] [address]-98 10 MG Orally Once a day 1 tablet Lasix [facility] [address]-27 20 MG Orally Once a day Feb 02, 2015 1 tablet NovoLog Flexpen [facility] [address]-00 100 UNIT/ML Subcutaneous 3 times per day Jan 28, 2015 16units Ecotrin [facility] [address]-94 325 MG Orally Once a day 1 tablet Metoprolol Tartrate [facility] [address]-93 50 MG Orally Twice a day 1 tablet in am and 2 tab in pm Spiriva HandiHaler [facility] [address]-72 18 MCG Inhalation Once a day 1 capsule Plavix [facility] [address]-77 75 MG Orally Once a day 1 tablet Imodium A-D [facility] [address]-71 2 MG Orally 3 times a day prn diahrrea FebMay 24, 2015 1 tablet Omeprazole [facility] [address]-48 40 MG Orally Once a day Feb 02, 2015 1 capsule Fish Oil [facility] [address] 1200 MG Orally 3 times a day 1 capsule potassium ND 0 Oral Once a day 1 tab 595 mg Advair Diskus [facility] [address]-36 250-50 MCG/DOSE Inhalation Twice a day 1 puff Procedures Procedure Coding System Code Date LAB [facility]ILL[facility] CPT-4 NOBLL Feb 23, 2015 [facility] VISIT ESTABLISHED PATIENT CPT-4 G0467 Feb 23, 2015 MICROALBUMIN, SEMIQUANT CPT-4 84208 Feb 23, 2015 Office Visit, Est Pt., Level 4 CPT-4 39721 Feb 23, 2015 Vital Signs Date/Time: Feb 23, 2015 Temperature 98.0 F Weight 351.3 lbs Height 72.0 in BMI 47.64 Index Blood Pressure Diastolic 84 mmHg Blood Pressure Systolic 156 mmHg Cardiac Monitoring Heart Rate 96 bpm Results Name Result Date Reference Range Unit Abnormality Flag MICROALBUMIN, URINE (IN HOUSE) ----A:C (IN HOUSE) >300 mg/g 20150223 ----CRE 50 mg/dL [id number] ----ALB 150 mg/L [id number] ----Color yellow [id number] ----MICROALBUMIN High Abnormal [id number] ----Lot # [id number] ----Exp date [id number] ----Clarity clear [id number] Summary Purpose eClinicalWorks Submission
--- OUTSIDE RECORDS SUMMARY | 2016-08-17 17:50 | XMS REPORT ---
Author OSITO Godoy Organization eClinicalWorks Address Unknown Phone Unavailable Care Team Providers Care Laminating Machine Operator Name Role Phone OSITO YANCEY CP Unavailable Allergies No Known Allergies Problems Problem Type Condition Code Onset Dates Condition Status Problem COPD (chronic obstructive pulmonary disease) J44.9 Active Problem Sleep apnea G47.30 Active Problem HTN (hypertension) I10 Active Problem Hypothyroid E03.9 Active Problem GERD (gastroesophageal reflux disease) K21.9 Active Problem CAD (coronary artery disease) I25.10 Active Problem Hypercholesterolemia E78.0 Active Problem 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 Problem Environmental allergies Z91.09 Active Medications Medication Code System Code Instructions Start Date End Date Status Dosage Omeprazole [facility] [address]-75 40 MG Orally Once a day Feb 02, 2015 1 capsule Hydrochlorothiazide [facility] [address]-72 25 MG Orally Once a day Feb 02, 2015 1 tablet Lasix [facility] [address]-60 20 MG Orally Once a day Feb 02, 2015 1 tablet Atorvastatin Calcium [facility] [address]-88 40 MG Orally Once a day Feb 02, 2015 1 tablet Levothyroxine Sodium [facility] [address]-92 150 MCG Orally Once a day Feb 02, 2015 2 tab Results No Known Results Summary Purpose eClinicalWorks Submission
--- OUTSIDE RECORDS SUMMARY | 2016-08-17 17:51 | XMS REPORT ---
Author OSITO Godoy Organization eClinicalWorks Address Unknown Phone Unavailable Care Team Providers Care Second Cook And Baker Name Role Phone OSITO YANCEY CP Unavailable [...] Instructions Start Date End Date Status Dosage Levemir FlexTouch [facility] [address]-30 100 UNIT/ML Subcutaneous 2times per days Jan 28, 2015 32units NovoLog Flexpen [facility] [address]-75 100 UNIT/ML Subcutaneous 3 times per day Jan 28, 2015 16units Results No Known Results Summary Purpose eClinicalWorks Submission
--- OUTSIDE RECORDS SUMMARY | 2016-08-17 17:51 | XMS REPORT ---
Author OSITO Godoy Organization eClinicalWorks Address Unknown Phone Unavailable Care Team Providers Care Upper Marker Name Role Phone OSITO YANCEY CP Unavailable Allergies No Known Allergies Problems Problem Type Condition Code Onset Dates Condition Status Assessment Anemia D64.9 Active Problem COPD (chronic obstructive pulmonary disease) J44.9 Active Problem Sleep apnea G47.30 Active Problem HTN (hypertension) I10 Active Problem Hypothyroid E03.9 Active Problem GERD (gastroesophageal reflux disease) K21.9 Active Problem CAD (coronary artery disease) I25.10 Active Problem Hypercholesterolemia E78.0 Active Problem 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
--- OUTSIDE RECORDS SUMMARY | 2016-08-17 17:51 | XMS REPORT ---
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 Problem COPD (chronic obstructive pulmonary disease) J44.9 Active Problem Sleep apnea G47.30 Active Problem HTN (hypertension) I10 Active Problem Hypothyroid E03.9 Active Problem GERD (gastroesophageal reflux disease) K21.9 Active Problem CAD (coronary artery disease) I25.10 Active Problem Hypercholesterolemia E78.0 Active Problem 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 [address]-78 20 MG Orally Once a day 1 tablet Levothyroxine Sodium [facility] [address]-34 300 MCG Orally Once a day 1 tablet Metformin HCl [facility] [address]-69 1000 MG Orally Twice a day 1 tablet with meals potassium ND 0 Oral Once a day 1 tab 595 mg Fish Oil [facility] [address] 1200 MG Orally 3 times a day [address] [facility] [address]-44 40 MG Orally Once a day [address] [facility] [address]-94 325 MG Orally Once a day 1 tablet Mucinex Allergy [facility] [address]-75 180 MG Orally 2 times a day not defined Albuterol Sulfate [facility] [address]-35 0.3% Inhalation every 4 hrs not defined Spiriva HandiHaler [facility] [address]-80 18 MCG Inhalation Once a day [address] [facility] [address]-09 75 MG Orally Once a day 1 tablet Sarah Allergy [facility] [address]41 180 MG Orally not defined Amlodipine Besylate [facility] [address]-82 10 MG Orally Once a day 1 tablet Levothyroxine Sodium [facility] [address]-62 50 MCG Orally Once a day 1 tablet Levemir FlexTouch [facility] [address]-29 100 UNIT/ML Subcutaneous 2 times a day 32 units Advair Diskus [facility] [address]-28 250-50 MCG/DOSE Inhalation Twice a day [address] [facility] [address]-97 25 MG Orally Once a day 1 tablet Metoprolol Tartrate [facility] [address]-14 50 MG Orally Twice a day 1 tablet in am and 2 tab in pm NovoLog Flexpen [facility] [address]-89 100 UNIT/ML Subcutaneous 3 times a day 16 units Procedures Procedure Coding System Code Date GLYCATED HEMOGLOBIN TEST CPT-4 11322 Jan 22, 2015 [facility] VISIT NEW PATIENT CPT-4 G0466 Jan 22, 2015 [facility] NOB[facility] Jan 22, 2015 VENIPUNCT, ROUTINE* CPT-4 06976 Jan 22, 2015 Office Visit, New Pt., Level 4 CPT-4 57251 Jan 22, 2015 Vital Signs Date/Time: Jan 22, 2015 Temperature 96.8 F Weight 351.4 lbs Height 72.0 in BMI 47.65 Index Blood Pressure Diastolic 80 mmHg Blood Pressure Systolic 150 mmHg Cardiac Monitoring Heart Rate 90 bpm Results Name Result Date Reference Range Unit Abnormality Flag A1C (IN HOUSE) ----A1C IN HOUSE 7.0 20150122 4.30 - 5.6 % ----Previous A1c none [id number] ----Lot # [id number] ----Exp date [id number] ROUTINE VENIPUNCTURE Summary Purpose eClinicalWorks Submission
--- OUTSIDE RECORDS SUMMARY | 2016-08-17 17:51 | XMS REPORT ---
Author OSITO Godoy Organization eClinicalWorks Address Unknown Phone Unavailable Care Team Providers Care Press Assistant And Feeder Name Role Phone OSITO YANCEY CP Unavailable [...] Instructions Start Date End Date Status Dosage Metformin HCl [facility] [address]-33 1000 MG Orally Twice a day Jan 27, 2015 1 tablet with meals Results No Known Results Summary Purpose eClinicalWorks Submission
--- OUTSIDE RECORDS SUMMARY | 2016-08-17 17:52 | XMS REPORT ---
Author OSITO Godoy [facility] eClinicalWorks Address Unknown Phone Unavailable Care Team Providers Care Coat Hanger Shaper Machine Operator Name Role Phone OSITO YANCEY [...] Instructions Start Date End Date Status Dosage Advair Diskus [facility] [address]-26 250-50 MCG/DOSE Inhalation Twice a day Feb 16, 2015 1 puff Metoprolol Tartrate [facility] [address]-09 50 MG Orally Twice a day 1 tablet in am and 2 tab in pm Results No Known Results Summary Purpose eClinicalWorks Submission
--- OUTSIDE RECORDS SUMMARY | 2016-08-17 17:53 | XMS REPORT ---
Author OSITO Godoy [facility] eClinicalWorks Address Unknown Phone Unavailable Care Team Providers Care Pillowcase Cutter Name Role Phone OSITO YANCEY CP Unavailable [...] other 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 Active Assessment Sleep apnea G47.30 Active Assessment COPD (chronic obstructive pulmonary disease) J44.9 Active Assessment Environmental allergies Z91.09 Active Assessment Hypothyroid E03.9 Active Assessment Hypercholesterolemia E78.0 Active Assessment GERD (gastroesophageal reflux disease) K21.9 Active Assessment CAD (coronary artery disease) I25.10 Active Assessment 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 63541866726 40 MG Orally Once a day [address] [facility] [address]-33 40 mg Orally twice a day August 20, [address] [facility] [address]-00 50 MG Orally Twice a day 1 tablet in am and 2 tab in pm Spiriva HandiHaler [facility] [address]-07 18 MCG Inhalation Once a day [address] [facility] [address]-99 (2.5 MG/3ML) 0.083% Inhalation every 4 hours prn May 04, [address] [facility] [address]-32 10 MG Orally Once a day [address] [facility] 15959768572 100 UNIT/ML INJECT 35 UNITS SUBCUTANEOUSLY TWICE DAILY Hydrochlorothiazide ND 98074768052 25 MG Orally Once a day 1 tablet Advair Diskus ND 01529896379 250-50 MCG/DOSE INHALE ONE PUFF BY MOUTH TWICE DAILY NovoLog Flexpen ND 87916089039 100 UNIT/ML INJECT 35 UNITS SUBCUTANEOUSLY THREE TIMES DAILY Atorvastatin Calcium ND 89439427798 40 MG Orally Once a day [address] [facility] [address]-28 20 MG Orally Once a day [address] [facility] 99416-33345 1200 MG Orally 3 times a day 1 capsule Metformin HCl ND 79648316045 1000 MG Orally Twice a day 1 tablet with meals Albuterol Sulfate [facility] [address]-92 0.3% Inhalation every 4 [address] defined Las[address] [facility] [address]-91 80 mg Orally Once a day Mar 16, 2015 1 tablet potassium NDC 0 Oral Once a day 1 tab 595 mg Levothyroxine Sodium ND 07794757826 150 MCG Orally Once a day [address] [facility] [address]-18 180 MG Orally 2 times a day not defined Oxygen NDC 0 2-3 L/NC by inhalation route continious May 12, [address] [facility] [address]-57 325 MG Orally Once a day [address] [facility] [address]-06 75 MG Orally Once a day 1 tablet Procedures Procedure Coding System Code Date COMPLETE CBC W/AUTO DIFF WBC CPT-4 24408 August 20, 2015 COMPREHEN METABOLIC PANEL CPT-4 62325 August 20, 2015 GLYCATED HEMOGLOBIN TEST CPT-4 57768 August 20, 2015 VENIPUNCT, ROUTINE* CPT-4 66462 August 20, 2015 Office Visit, Est Pt., Level 4 CPT-4 21186 August 20, 2015 ASSAY THYROID STIM HORMONE CPT-4 87247 August 20, 2015 LIPID PANEL CPT-4 23157 August 20, 2015 [facility] VISIT ESTABLISHED PATIENT CPT-4 G0467 August 20, 2015 ASSAY OF FREE THYROXINE CPT-4 86484 August 20, 2015 Vital Signs Date/Time: August 20, 2015 Cardiac Monitoring Heart Rate 92 bpm Weight 351.0 lbs Height 72.0 in Blood Pressure Diastolic 83 mmHg Blood Pressure Systolic 170 mmHg Results No Known Results Summary Purpose eClinicalWorks Submission
--- OUTSIDE RECORDS SUMMARY | 2016-08-17 17:53 | XMS REPORT ---
Author OSITO Godoy Organization eClinicalWorks Address Unknown Phone Unavailable Care Team Providers Care Pit Inspector Name Role Phone OSITO YANCEY CP [...] Instructions Start Date End Date Status Dosage Levothyroxine Sodium [facility] [address]-48 150 MCG Orally Once a day Feb 02, 2015 2 tab Results No Known Results Summary Purpose eClinicalWorks Submission
[2016-08-17] MEDS: RT-ALBUTEROL SULF 2.5 MG/3 ML PRE-MIX VIAL IH SCH (19:07)
[2016-08-17] MEDS: RT-ADVAIR HFA 115/21 MCG PER PUFF IH SCH (19:07)
[2016-08-17] MEDS ORDERED: guaiFENesin (MUCINEX) 600 MG TAB PO SCH (21:00)
[2016-08-17] MEDS ORDERED: ATORVASTATIN 20 MG (LIPITOR) TABLET PO SCH (21:00)
[2016-08-17] MEDS ORDERED: inSUlin DETERMIR 1 UNIT/0.01 ML (LEVEMIR) CHARGE PER UNIT SQ SCH (21:00)
[2016-08-18] VITALS: BP 120/58
[2016-08-18 04:00] VITALS: BP 110/66
[2016-08-18 04:35] LABS: MEAN PLATELET VOLUME 10.6 FL (7.4-10.4); RED BLOOD COUNT 3.87 10^6/uL (4.35-5.85); RED CELL DISTRIBUTION WIDTH 15.4 % (10.0-14.5); WHITE BLOOD COUNT 4.1 10^3/uL (4.3-11.0)
[2016-08-18 04:49] LABS: ANION GAP 12 MMOL/L (5-14); BLOOD UREA NITROGEN 16 MG/DL (7-18); BUN/CREATININE RATIO 15; CALCIUM 9.6 MG/DL (8.5-10.1); CARBON DIOXIDE 23 MMOL/L (21-32); CHLORIDE 105 MMOL/L (98-107); CREATININE SERUM 1.05 MG/DL (0.60-1.30); GFR ESTIMATED > 60; GLUCOSE 116 MG/DL (70-105); POTASSIUM 3.8 MMOL/L (3.6-5.0); SODIUM 140 MMOL/L (135-145)
[2016-08-18] MEDS: inSUlin ASPART (NovoLOG) 1 UNIT/0.01 ML (CHARGE PER UNIT) SC SCH (06:29)
[2016-08-18] MEDS: OMEGA 3 (FISH OIL) 1000 MG CAP PO SCH (06:30)
[2016-08-18] MEDS: RT-ALBUTEROL SULF 2.5 MG/3 ML PRE-MIX VIAL IH SCH (06:40)
[2016-08-18] MEDS: RT-ADVAIR HFA 115/21 MCG PER PUFF IH SCH (06:40)
[2016-08-18] MEDS ORDERED: OMEPRAZOLE 40 MG PO SCH (07:00)
--- NOTE | 2016-08-18 07:28 | Discharge Inst-Post CATH ---
Discharge Inst-CATH Post Cardiac Cath D/C Inst Follow Up/Plan Appointment with Dr. Ray's office in 2-4 weeks Hold metformin for 48 hours CARDIAC CATH DISCHARGE INSTRUCTIONS *Hold Metformin for 48 hours post heart cath. ACTIVITY * Go Home directly and rest. * Limit activity of the leg (or wrist if it was used) for 7 days including aerobics, swimming, jogging, bicycling, etc. * Restrict stair-climbing for 7 days if possible, if not, climb up with your non -cath leg, then bring together on the same step. * Avoid lifting, pushing, pulling or excessive movement of the affected extremity for 7 days. * Customary sexual activity may be resumed after 2 days-use caution not to use a position that strains or causes pain to the affected extremity. * No driving for 24 hours. * NO SMOKING. * Avoid straining for bowel movements for 7 days. * Gentle walking on level ground is allowed. * Returning to work will depend on the type of procedure and the results. Your doctor will discuss this with you. CALL YOUR DOCTOR FOR ANY OF THE FOLLOWING: *If bleeding from the puncture site occurs- Apply gentle pressure to site with clean cloth and call your doctor or EMS. * If a knot or lump forms under the skin, increases in size, or causes pain. * If bruising appears to be worsening or moving further down your leg instead of disappearing. * Temperature above 101 F. CARE OF YOUR GROIN INCISION; * Bruising or purple discoloration of the skin near the puncture site is common. * You may shower only, no bathtub bathing for 5 days. Be careful to avoid slipping as your leg may feel stiff. * If a closure device was used on your femoral artery, please see the attached guide regarding care of the device and your leg. * REMOVE the dressing from your groin the next day after your procedure in the shower. CARE OF YOUR WRIST INCISION; * Bruising or purple discoloration of the skin near the puncture site is common. * You may shower. * DO NOT submerge wrist. * Remove dressing in 24 hours. NHUNG RAY MD Aug 18, 2016 07:28
--- NOTE | 2016-08-18 07:31 | Short Stay Summary ---
History of Present Illness History of Present Illness Reason for visit/HPI 61 years old gentleman with history of coronary artery disease, CABG 3, shortness of breath, sleep apnea and peripheral arterial disease. Has been having increasing dyspnea, had an abnormal stress test and scheduled for cardiac catheterization possible PTCA Date of Admission August 17, 2016 Date of Discharge August 18, 2016 Time Seen by Provider: 07:29 Attending Physician Nhung Ray MD Admitting Physician Mario Davila MD Consult Allergies and Home Medications Allergies Coded Allergies: ARB-Angiotensin Receptor Antagonist (Verified Allergy, Severe, ANAPHYLAXIS , 04/08/15) DUE TO REACTION TO ACEI UNABLE TO TAKE ARB PER CARDIOLOGY. hydrocodone (Verified Allergy, Unknown, 08/05/14) REACTS BADLY WITH HEART MEDICINE tree nut (Verified Allergy, Unknown, 03/21/16) JAQUELIN Inhibitors (Verified Adverse Reaction, Unknown, 04/06/15) ananaphlaxis Uncoded Allergies: ENVIRONMENTAL (Allergy, Mild, 09/07/08) Home Medications Acetaminophen 325 Mg Tablet, 650 MG PO Q4H PRN for PAIN-MILD, (Reported) TAKES 2 (325MG) TABLETS Albuterol Sulfate 2.5 Mg/3 Ml Vial.neb, 2.5 MG NEB QID, (Reported) Amlodipine Besylate 10 Mg Tablet, 10 MG PO DAILY, (Reported) Aspirin 81 Mg Tablet.dr, 81 MG PO HS, (Reported) Atorvastatin Calcium 20 Mg Tablet, 20 MG PO HS, (Reported) Bumetanide 2 Mg Tablet, 2 MG PO DAILY, (Reported) Clopidogrel Bisulfate 75 Mg Tablet, 75 MG PO 1700, (Reported) Docusate Sodium 250 Mg Capsule, 250 MG PO BID PRN for CONSTIPATION-1ST LINE, ( Reported) Fluticasone/Salmeterol 1 Each Blst.w.dev, 1 PUFF INH BID, (Reported) Guaifenesin 600 Mg Tab.er.12h, 600 MG PO BID, (Reported) Hydrochlorothiazide 25 Mg Tablet, 25 MG PO DAILY, (Reported) Insulin Aspart 300 Units/3 Ml Solution, 40 UNITS SQ TIDAC, (Reported) Insulin Detemir 100 Unit/1 Ml Insuln.pen, 40 UNITS SC BID, (Reported) Levothyroxine Sodium 150 Mcg Tablet, 300 MCG PO DAILY, (Reported) TAKES 2 (150MCG) TABLETS ALONG WITH 1 (50MCG) TABLET FOR TOTAL DAILY DOSE OF 350MCG. Levothyroxine Sodium 50 Mcg Tablet, 50 MCG PO DAILY, (Reported) TAKES ALONG WITH 2 (150MCG) TABLETS FOR A TOTAL DAILY DOSE OF 350MCG Loratadine 10 Mg Tablet, 10 MG PO DAILY, (Reported) Metformin HCl 1,000 Mg Tablet, 1,000 MG PO BID WITH MEALS, (Reported) Metoprolol Succinate 100 Mg Tab.er.24h, 100 MG PO 1600, (Reported) Metoprolol Succinate 100 Mg Tab.er.24h, 50 MG PO DAILY, (Reported) TAKES 1/2 (100MG) TABLET Multivitamin 1 Each Tablet, 1 TAB PO DAILY, (Reported) Nitroglycerin 0.4 Mg Tab.subl, 0.4 MG SL UD PRN for CHEST PAIN, (Reported) [place]-3/Dha/Epa/Fish Oil 1 Each Capsule, 1,000 MG PO TID, (Reported) Omeprazole 40 Mg Capsule.dr, 40 MG PO DAILY, (Reported) Potassium Gluconate 99 Mg Tablet, 99 MG PO 1700, (Reported) Sulfamethoxazole/Trimethoprim 1 Each Tablet, 1 TAB PO MoWeFr, (Reported) Tiotropium Gilbert 1 Inh Aerp, 1 CAP IH DAILY, (Reported) Past Cdhmagy-Rcjxla-Jnszyk Hx Patient Social History Marrital Status: Smoking Status: Former Smoker Former smoker/When Quit: Aug 05, 2006 Type Used: Cigarettes Recent Foreign Travel: No Contact w/other who traveled: No Recent Hopitalizations: Yes (several - see history) Recent Infectious Disease Expo: No Immunizations Up To Date Tetanus Booster (TDap): More than 5yrs Date of Pneumonia Vaccine: Jan 02, 2014 Date of Influenza Vaccine: Jan 03, 2015 Seasonal Allergies Seasonal Allergies: Yes Surgeries HX Surgeries: Yes (HIATAL HERNIA REPAIR, ESOPHAGEAL WRAP) Surgeries: Abdominal, Appendectomy, CABG, Coronary Stent, Thyroidectomy Respiratory Hx Respiratory Disorders: Yes Cardiovascular Hx Cardiovascular Disorders: Yes (STENTS, TRIPLE BYPASS) Cardiac Disorders: Chronic Edema/Swelling, Coronary Artery Disease, Heart Attack, High Cholesterol, Hypertension Neurological Hx Neurological Disorders: Yes Neurological Disorders: Neuropathy, Stroke Reproductive System Hx Reproductive Disorders: No Sexually Transmitted Disease: No HIV/AIDS: No Genitourinary Hx Genitourinary Disorders: No Gastrointestinal Hx Gastrointestinal Disorders: Yes Gastrointestinal Disorders: Gastroesophageal Reflux, Hiatal Hernia Musculoskeletal Hx Musculoskeletal Disorders: Yes (EXOSTOSIS R HALLUX) Musculoskeletal Disorders: Arthritis Endocrine Hx Endocrine Disorders: Yes (hx of graves dz prior to thyroidectomy) Endocrine Disorders: Diabetes, Insulin dep HEENT HX ENT Disorders: No Loss of Vision: Denies Hearing Impairment: Denies Cancer Hx Cancer: No Psychosocial Hx Psychiatric Problems: Yes (alcoholism) Integumentary HX Skin/Integumentary Disorder: No Blood Transfusions Hx Blood Disorders: No Family Medical History Family Hx: Cardiovascular disease Congenital heart disease Diabetes mellitus Hypertension Respiratory disorder Constitutional: see HPI EENTM: see HPI Respiratory: see HPI, dyspnea on exertion, short of breath Cardiovascular: see HPI, edema Gastrointestinal: see HPI Genitourinary: see HPI Musculoskeletal: see HPI Skin: see HPI Psychiatric/Neurological: No Symptoms Reported, See HPI Physical Exam Vital Signs Vital Sign - Last 12Hours 08/17/16 07:10 Temp 99.3 Pulse 77 Resp 16 B/P (MAP) 146/82 Pulse Ox 98 O2 Delivery Nasal Cannula O2 Flow Rate 3.00 Capillary Refill : Less Than 3 Seconds General Appearance: No Apparent Distress, WD/WN Eyes: Bilateral Eye EOMI, Bilateral Eye Normal Inspection, Bilateral Eye PERRL HEENT: PERRL/EOMI, TMs Normal, Normal ENT Inspection, Pharynx Normal Neck: Full Range of Motion, Normal Inspection, Non Tender, Supple, Carotid Bruit Respiratory: Chest Non Tender, Lungs Clear, Normal Breath Sounds, No Accessory Muscle Use, No Respiratory Distress Cardiovascular: Regular Rate, Rhythm, No Edema, No Gallop, No JVD, No Murmur, Normal Peripheral Pulses Gastrointestinal: Normal Bowel Sounds, No Organomegaly, No Pulsatile Mass, Non Tender, Soft Back: Normal Inspection, No CVA Tenderness, No Vertebral Tenderness Extremity: Normal Capillary Refill, Normal Inspection, Normal Range of Motion, Non Tender, No Calf Tenderness, No Pedal Edema Neurologic/Psychiatric: Alert, Oriented x3, No Motor/Sensory Deficits, Normal Mood/Affect Skin: Normal Color, Warm/Dry Lymphatic: No Adenopathy Short Stay Diagnosis Discharge Diagnosis-Short Stay Admission Diagnosis: Shortness of breath Coronary artery disease Hypertension Hyperlipidemia Diabetes mellitus Peripheral arterial disease Final Discharge Diagnosis: Shortness of breath Coronary artery disease Hypertension Hyperlipidemia Diabetes mellitus Peripheral arterial disease Conclusion Labs Laboratory Tests 08/17/16 11:21: Glucometer 270H 08/17/16 18:10: Glucometer 222H 08/17/16 21:36: Glucometer 146H 08/18/16 03:15: White Blood Count 4.1L, Red Blood Count 3.87L, Hemoglobin 9.5L, Hematocrit 31L, Mean Corpuscular Volume 80, Mean Corpuscular Hemoglobin 25, Mean Corpuscular Hemoglobin Concent 31L, Red Cell Distribution Width 15.4H, Platelet Count 130, Mean Platelet Volume 10.6H, Sodium Level 140, Potassium Level 3.8, Chloride Level 105, Carbon Dioxide Level 23, Anion Gap 12, Blood Urea Nitrogen 16, Creatinine 1.05, Estimat Glomerular Filtration Rate > 60, BUN/Creatinine Ratio 15, Glucose Level 116H, Calcium Level 9.6 Conclusion/Plan patient was admitted through the cardiac catheterization laboratory, same day surgery, underwent angioplasty to the vein graft to the diagonal artery, otherwise cardiac catheterization showed patent BARROSO to LAD and vein graft to the obtuse marginal, normal left ventricular size and function, this morning he was feeling well, having mild discomfort in his groin, no hematoma, using C Pap machine at night. Patient will be discharged home, he is scheduled to see for evaluation for his carotid stenosis NHUNG RAY MD Aug 18, 2016 07:31
[2016-08-18 08:00] VITALS: BP 131/79
[2016-08-18] MEDS ORDERED: LEVOTHYROXINE 150 MCG (LEVOTHROID) TAB PO SCH (09:00)
[2016-08-18] MEDS ORDERED: CLOPIDOGREL 75 MG (PLAVIX) TABLET PO SCH (09:00)
[2016-08-18] MEDS ORDERED: HYDROCHLOROTHIAZIDE 25 MG (HCTZ) TAB PO SCH (09:00)
[2016-08-18] MEDS ORDERED: LEVOTHYROXINE 50 MCG (LEVOTHROID) TAB PO SCH (09:00)
[2016-08-18] MEDS ORDERED: MULTIVIT W/MINERALS TAB (THERAGRAN M) PO SCH (09:00)
[2016-08-18] MEDS ORDERED: BUMETANIDE 2 MG PO SCH (09:00)
[2016-08-18] MEDS ORDERED: DOCUSATE 250 MG PO PRN (09:00)
[2016-08-18] MEDS ORDERED: amLODIPine 10 MG (NORVASC) TAB PO SCH (09:00)
[2016-08-18] MEDS ORDERED: meTOprolol SUCCINATE 100 MG (TOPROL XL) TAB PO SCH (09:00)
[2016-08-18] MEDS ORDERED: LORATADINE (CLARITIN) 10 MG TAB PO SCH (09:00)
[2016-08-18] MEDS ORDERED: ASPIRIN E.C. 81 MG (ECOTRIN) TAB PO SCH (09:00)
== END 2016-08-18 08:40 | disposition home or self-care (01) ==
LOC: CATH 06:50 → ICU 09:45 → CATH 08-18 08:40
PROVIDERS: ATTEND Internal Medicine Cardiovascular Disease
DX: T82.857A Stenosis of other cardiac prosthetic devices, implants and grafts, initial encounter; J44.9 Chronic obstructive pulmonary disease, unspecified; E66.01 Morbid (severe) obesity due to excess calories; E78.5 Hyperlipidemia, unspecified; I25.10 Atherosclerotic heart disease of native coronary artery without angina pectoris; Z79.899 Other long term (current) drug therapy; I25.82 Chronic total occlusion of coronary artery; I10 Essential (primary) hypertension; Z87.891 Personal history of nicotine dependence; Z99.81 Dependence on supplemental oxygen; I73.9 Peripheral vascular disease, unspecified; Z68.41 Body mass index [BMI] 40.0-44.9, adult; E11.9 Type 2 diabetes mellitus without complications; Z79.4 Long term (current) use of insulin
CPT/HCPCS: 36415; 71010; 80048; 80053; 80061; 82962; 85027; 85347; 85610; 85730; 87081; 92937; 93005; 93459; 94640; 94760

== ENCOUNTER → 2017-10-17 | Outpatient (CLI) | payer MEDICARE ==
[~2017-10-17] MED LIST changes: +ACET325T49 PO; -AMLO10TA2 PO; +AMLO10TA6 PO; +AMOX-358 PO; +ATOR20TA49 PO; +DOCU250C11 PO; +IOHEXOL 350 MG/ML 100 ML (OMNIPAQUE 350) VIAL IV ONE; +LORA10TA7 PO; +METF-399 PO; -METF1000 PO; +METO-395 PO; +MULT-35 PO; +NS 250 ML (IVPB) BAG IV ONE; +OMEG-160 PO
[2017-10-17 12:51] LABS: BUN/CREATININE RATIO 14; CREATININE SERUM 1.19 MG/DL (0.60-1.30); GFR ESTIMATED > 60
--- NOTE | 2017-10-17 14:27 | Diagnostic Imaging Report ---
PROCEDURE: CT chest with contrast only. TECHNIQUE: Multiple contiguous axial images were obtained through the chest after administration of intravenous contrast. INDICATION: Pulmonary nodule. COMPARISON: Comparison is made with prior CT from 06/17/2015. FINDINGS: No axillary lymphadenopathy is identified. Lymph nodes in the darryl and mediastinum are similar to prior CT. The largest nodes are posterior to the left main pulmonary artery and similar to prior. No pericardial or pleural fluid is identified. There are coronary arterial calcifications present. There are changes of median sternotomy and CABG. A spiculated mass in the right upper lobe has increased in size measuring 2.0 x 2.3 cm compared with 1.8 x 1.1 cm on prior. This is concerning for neoplasm. No other pulmonary masses are seen. Interstitial markings remain prominent with some thickening of the interlobular septa. There are some bibasilar infiltrates or atelectasis present. The upper abdomen do show spleen to be enlarged, similar to prior study. Bony structures are nonacute. IMPRESSION: 1. Enlarging spiculated mass in the right upper lobe when compared with prior CT from 2016, again concerning for lung neoplasm. Mediastinal and hilar lymph nodes are stable. 2. Splenomegaly. Dictated by: Dictated on workstation # [id number]
== END ==
LOC: RAD 12:11
PROVIDERS: ATTEND Nurse Practitioner Family
DX: R91.8 Other nonspecific abnormal finding of lung field (principal); J44.9 Chronic obstructive pulmonary disease, unspecified; J84.9 Interstitial pulmonary disease, unspecified; R16.1 Splenomegaly, not elsewhere classified
CPT/HCPCS: 36415; 71260; 82565; 84520

== ENCOUNTER 2017-10-25 06:10 | Outpatient (CLI) | payer MEDICARE ==
[~2017-10-25] VITALS: Ht 190.5 cm; Wt 154.4 kg
[~2017-10-25 06:10] MED LIST changes: -IOHEXOL 350 MG/ML 100 ML (OMNIPAQUE 350) VIAL IV ONE; -NS 250 ML (IVPB) BAG IV ONE
== END 2017-10-25 09:50 | disposition home or self-care (01) ==
LOC: PREOP 06:10
PROVIDERS: ATTEND Internal Medicine Critical Care Medicine
DX: Z01.818 Encounter for other preprocedural examination (principal)

== ENCOUNTER 2017-11-01 06:49 | Day surgery (SDC) | payer MEDICARE ==
[~2017-11-01] VITALS: Ht 190.5 cm; Wt 154.4 kg
[~2017-11-01 06:49] MED LIST changes: +proPOfol 200 MG/20 ML (DIPRIVAN) VIAL IV ONE
[2017-11-01] MEDS ORDERED: ROCURONIUM 10 MG/ML 5 ML SYRINGE IV ONE (06:50)
[2017-11-01] MEDS ORDERED: fentaNYL INJECTION 100 MCG/2 ML AMP ONE (06:50)
[2017-11-01] MEDS ORDERED: NEOSTIGMINE 1 MG/ML 5 ML SYRINGE ONE (06:50)
[2017-11-01] MEDS ORDERED: MIDAZOLAM 2 MG/2 ML (VERSED) VIAL ONE (06:50)
[2017-11-01] MEDS ORDERED: LIDOCAINE PF 2% 2 ML (XYLOCAINE) VIAL ONE (06:50)
[2017-11-01] MEDS ORDERED: ONDANSETRON 4 MG/2 ML (SDV) Z0FRAN ONE (06:50)
[2017-11-01] MEDS ORDERED: GLYCOPYRROLATE 0.2 MG/ML (ROBINUL) 2 ML VIAL ONE (06:50)
[2017-11-01] MEDS ORDERED: LIDOCAINE PF 2% 5 ML (XYLOCAINE) VIAL INJ ONE (06:50)
[2017-11-01] MEDS ORDERED: LIDOCAINE PF 1% 5 ML SYRINGE (ANLIKER/BAILEY ONLY) INJ ONE (06:50)
[2017-11-01] MEDS ORDERED: SUCCINYLCHOLINE INJ 100 MG/5 ML SYR ONE (06:51)
--- OUTSIDE RECORDS SUMMARY | 2017-11-01 06:52 | XMS REPORT ---
Author Author ROCKY MORRIS Organization [facility] Address [address] [place] [address] Care Team Providers Care Retread Supervisor Name Role Phone ROCKY MORRIS Unavailable PROBLEMS Type Condition ICD9-CM Code UVL80-GH Code Onset Dates Condition Status SNOMED Code Problem Coronary atherosclerosis due to lipid rich plaque I25.83 Active 935954929321245 Problem Panlobular emphysema J43.1 Active 7450748 Problem Atherosclerotic heart disease of [place] coronary artery without angina pectoris I25.10 Active 601844209814098 Problem Simple chronic bronchitis J41.0 Active 92919812 Problem Pure hypercholesterolemia E78.00 Active 616254490 Problem COPD with acute exacerbation J44.1 Active 493034407 Problem 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 Active 695383796 Problem Type 2 diabetes mellitus with hyperglycemia E11.65 Active 091416872 Problem 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 Active 555475471904 Problem Type 2 diabetes mellitus with other circulatory complications E11.59 Active 33771047 Problem HTN (hypertension) I10 Active 60768653 Problem CAD (coronary artery disease) I25.10 Active 79233135 Problem Hypothyroid E03.9 Active 55030382 Problem COPD (chronic obstructive pulmonary disease) J44.9 Active 31997785 Problem Environmental allergies Z91.09 Active 663582441 Problem Neuropathy G62.9 Active 633755700 Problem 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 13111088068475 Problem 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 Active 23121437165254 Problem Sleep apnea G47.30 Active 84879691 Problem Edema, unspecified type R60.9 Active 824440723 ALLERGIES Substance Reaction Event Type Date Status Gabapentin anaphylaxis Drug Allergy Aug, Active Cozaar anaphylaxis Drug Allergy Aug, Active Benazepril HCl anaphylaxis Drug Allergy Aug, Active ENCOUNTERS Encounter Location Date Diagnosis [facility] [address] [facility] [id number] [address] Oct, [facility] [id number] [place] [address]3276- 4576 05 Oct, 2017 COPD (chronic obstructive pulmonary disease) J44.9 ; Hypothyroid E03.9 and HTN (hypertension) I10 [facility] [id number] [place] [address] 33690- 1524 Aug, COPD (chronic obstructive pulmonary disease) J44.9 ; Hypothyroid E03.9 ; HTN (hypertension) I10 ; Type 2 diabetes mellitus with other circulatory complications E11.59 and BMI 45.0-49.9, adult Z68.42 [place] [address] [address] Aug, [place] [id number] [place] [address] 01756- 1653 Jul, [place] [address] [address]- [address] Jul, Alcoholism F10.20 ; Parkinson's disease (tremor, stiffness, slow motion, unstable posture) G20 and COPD (chronic obstructive pulmonary disease) J44.9 [place] [id number] [place] [address] 99751- 7289 June, BMI 45.0-49.9, adult Z68.42 and Simple chronic bronchitis J41.0 [place] [id number] [place] [address] 92794- 5809 June, [facility] [id number] [place] [address] 35197- 4206 May, HTN (hypertension) I10 and Type 2 diabetes mellitus with other circulatory complications E11.59 [place] [id number] [place] [address] 24711- 3658 10 May, 2017 [place] [id number] [place] [address] 54255- 5342 May, COPD exacerbation J44.1 [place] [address] [place] [place] [address] 08 Apr, 2017 Pure hypercholesterolemia E78.00 [facility] [address] [address] Apr, [facility] [id number] [place] [address] 74306 -7689 17 Mar, 2017 Cough R05 ; COPD with acute exacerbation J44.1 and BMI 45.0 -49.9, adult Z68.42 [facility] [address] [address]- 5746 13 Mar, 2017 [place] [address] 6[address]55- 6233 Mar, [place] [address] 84[address]- 3406 Feb, [place] [address] 24343- 4928 Feb, BMI 45.0-49.9, adult Z68.42 and Acute non-recurrent maxillary sinusitis J01.00 [place] [address] 69448- 2100 Feb, [place] [id number] [place] [address] 57967- 1274 Feb, [place] [address] 94021- 2630 Feb, GERD (gastroesophageal reflux disease) K21.9 [place] [id number] [place] [address] 42845- 4280 Jan, Panlobular emphysema J43.1 ; Type 2 diabetes mellitus with hyperglycemia E11.65 and 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 [place] [id number] [place] [address] 99740- 2172 04 Jan, 2017 [facility] [address] [address] -[address] Dec, Chronic obstructive pulmonary disease with acute exacerbation J44.1 ; Cough R05 ; 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 ; Type 2 diabetes mellitus with other circulatory complications E11.59 ; 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.4 and BMI 45.0-49.9, adult Z68.42 [facility] [id number] [place] [address] 11521- 1121 Oct, [facility] [address] 57655- 0589 Sep, [facility] [id number] [place] [address] 29679- 0541 Aug, [facility] [address] 71958- 9195 May, [facility] [id number] [place] [address] 01263- 7772 May, [facility] [address] 56206- 9763 Apr, [facility] [id number] [place] [address] 42656- 6693 Apr, [facility] [id number] [place] [address] 75514- 4249 Apr, [facility] [id number] [place] [address] 59739- 9782 Apr, 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 ; GERD (gastroesophageal reflux disease) K21.9 ; HTN ( hypertension) I10 ; Environmental allergies Z91.09 ; COPD (chronic obstructive pulmonary disease) J44.9 ; Sleep apnea G47.30 ; Hypothyroid E03.9 ; Neuropathy G62.9 ; Pure hypercholesterolemia E78.00 ; Atherosclerotic heart disease of [place] coronary artery without angina pectoris I25.10 ; Coronary atherosclerosis due to lipid rich plaque I25.83 and Edema, unspecified type R60.9 [facility] [place] [id number] Mar, COPD (chronic obstructive pulmonary disease) J44.9 ; Alcoholism F10.20 and 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 [facility] [address] [place] [id number] Mar, Open wound T14.8 [place] [id number] [place] [address] 30896- 9892 Mar, Environmental allergies Z91.09 ; Open wound, lower leg, right, initial encounter S81.801A ; GERD (gastroesophageal reflux disease) K21.9 ; Hypothyroid E03.9 ; Hypercholesterolemia E78.0 ; Sleep apnea G47.30 ; Neuropathy G62.9 ; Edema, unspecified type R60.9 ; 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 ; Coronary artery disease involving [place] coronary artery of [place] heart without angina pectoris I25.10 ; 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 and COPD (chronic obstructive pulmonary disease) J44.9 [place] [id number] [place] [address] 42920- 5491 Mar, [place] [id number] [place] [address] 83860- 3349 Mar, [place] [id number] [place] [address] 65161- 4373 Mar, [facility] [address] [place] [id number] Mar, Alcoholism F10.20 ; 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 ; COPD (chronic obstructive pulmonary disease) J44.9 and Sleep apnea G47.30 [place] [id number] [place] [address] 75533- 3276 Mar, [address] 8[address]78- [address]233 Mar, [place] [id number] [place] [address] 53524- 8991 Feb, 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 ; GERD (gastroesophageal reflux disease) K21.9 ; Hypothyroid E03.9 ; Sleep apnea G47.30 ; Parkinson's disease (tremor, stiffness , slow motion, unstable posture) G20 ; CAD (coronary artery disease) I25.10 ; Edema, unspecified type R60.9 ; COPD (chronic obstructive pulmonary disease) J44.9 and Neuropathy G62.9 [place] [id number] [place] [address] 63787- 4646 Jan, HTN (hypertension) I10 [address] [address]- [address] Jan, COPD (chronic obstructive pulmonary disease) J44.9 ; Hypothyroid E03.9 ; Environmental allergies Z91.09 ; 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 ; Hypercholesterolemia E78.0 ; Sleep apnea G47.30 ; CAD (coronary artery disease) I25.10 ; HTN (hypertension ) I10 ; GERD (gastroesophageal reflux disease) K21.9 ; Anemia D64.9 and Edema, unspecified type R60.9 [place] [id number] [place] [address] 53558- 3391 Dec, [place] [id number] [place] [address] 38352- 7915 Dec, 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 ; GERD (gastroesophageal reflux disease) K21.9 ; HTN ( hypertension) I10 ; Hypothyroid E03.9 ; Environmental allergies Z91.09 ; Sleep apnea G47.30 ; CAD (coronary artery disease) I25.10 ; Hypercholesterolemia E78.0 and COPD (chronic obstructive pulmonary disease) J44.9 [place] [address] [place] [address] 02556- 8101 Oct, [address] 01707- 6742 Aug, 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 ; GERD (gastroesophageal reflux disease) K21.9 ; Hypothyroid E03.9 ; Environmental allergies Z91.09 ; CAD (coronary artery disease) I25.10 ; Hypercholesterolemia E78.0 ; COPD (chronic obstructive pulmonary disease) J44.9 and Sleep apnea G47.30 [place] [id number] [place] [address] 84008- 4203 Jul, COPD (chronic obstructive pulmonary disease) J44.9 [facility] [id number] [place] [address] 78553- 1944 June, [place] [id number] [place] [address] 17373- 0612 May, [place] [id number] [place] [address] 95072- 4320 Apr, COPD (chronic obstructive pulmonary disease) J44.9 ; Sleep apnea G47.30 ; HTN (hypertension) I10 ; Hypothyroid E03.9 ; Environmental allergies Z91.09 ; CAD (coronary artery disease) I25.10 ; Hypercholesterolemia E78.0 and 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 [place] [id number] [place] [address] 51169- 9709 Apr, [place] [id number] [place] [address] 65703- 0849 Mar, [place] [id number] [place] [address] 06608- 2286 Mar, [place] [id number] [place] [address] 64548- 5764 Feb, [place] [id number] [place] [address] 68299- 6566 Feb, 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 ; Hypothyroid E03.9 ; HTN (hypertension) I10 ; COPD ( chronic obstructive pulmonary disease) J44.9 ; Sleep apnea G47.30 ; Hypercholesterolemia E78.0 ; Environmental allergies Z91.09 ; Diarrhea R19.7 and GERD (gastroesophageal reflux disease) K21.9 [place] [id number] [place] [address] 27621- 5671 Feb, [place] [address] Jan, [facility] [address] [address] 6[address] Jan, [facility] [address] [address] Jan, [place] [address] [address] 15 Jan, 2015 Anemia D64.9 [place] [address] [address]- [address]20 14 Jan, 2015 [place] [address] [place] [address] 20531- 1622 10 Jan, 2015 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 ; Hypothyroid E03.9 ; HTN (hypertension) I10 ; COPD ( chronic obstructive pulmonary disease) J44.9 ; Sleep apnea G47.30 ; Hypercholesterolemia E78.0 ; CAD (coronary artery disease) I25.10 and Environmental allergies Z91.09 IMMUNIZATIONS No Known Immunizations SOCIAL HISTORY Never Assessed REASON FOR VISIT COPD with no additional concerns-[facility]ILES PLAN OF CARE Activity Details Follow Up 4 Months Reason:dm2 3mo. checkup VITAL SIGNS Height 72.0 in 2017-08-30 Weight 341.8 lbs 2017-08-30 Temperature 98.1 degrees Fahrenheit 2017-08-30 Heart Rate 58 bpm 2017-08-30 Respiratory Rate 18 2017-08-30 Oximetry w/ oxygen @ 3L:97 % 2017-08-30 BMI 46.35 kg/m2 2017-08-30 Blood pressure systolic 124 mmHg 2017-08-30 Blood pressure diastolic 72 mmHg 2017-08-30 MEDICATIONS Medication Instructions Dosage Frequency Start Date End Date Duration Status Metoprolol Succinate 100 by oral route Once a day (total of 150 mg) 1.5 tabs Active Bumex 2 MG Orally Once a day 1 tablet 24h 30 Active Oxygen 3 L by inhalation route continious 1 puff Apr, Active Levothyroxine Sodium 150 MCG TAKE TWO TABLETS BY MOUTH ONCE DAILY (MUST HAVE APPOINTMENT FOR REFILL) 30 Active Augmentin 875-125 MG Orally every 12 hrs 1 tablet 12h Active Docusate Sodium 250 MG Orally twice a day prn constipation 1 capsule as needed Active Acetaminophen 325 MG Orally every 4 hrs prn pain 1 capsule as needed Active Fish Oil 8h Active Loratadine 10 MG Orally Once a day 1 tablet 24h Active Multivitamin Adult - Active Aspirin 81 MG Orally Once a day 1 tablet 24h Active Guaifenesin 200 MG Orally every 4 hrs 1 tablet as needed 4h Active Hydrocodone-Acetaminophen 7.5-325 MG Orally 3 times a day 1 tablet as needed 8h 28 Jul, 2017 15 days Active Levemir FlexTouch 100 UNIT/ML INJECT 50 UNITS SUBCUTANEOUSLY TWICE DAILY 30 Active Albuterol Sulfate (2.5 MG/3ML) 0.083% Inhalation every 4 hours prn 3 ml Active Potassium 99 MG Orally Once a day 1 tablet 24h Active Hydrochlorothiazide 25 MG TAKE ONE TABLET BY MOUTH ONCE DAILY 30 Active Metformin HCl 1000 MG TAKE ONE TABLET BY MOUTH TWICE DAILY WITH MEALS 30 Active Spiriva HandiHaler 18 MCG INHALE CONTENTS OF ONE CAPSULE BY MOUTH ONCE DAILY (TWO INHALATIONS PER ONE CAPSULE) 30 Active Advair Diskus 250-50 MCG/DOSE INHALE ONE PUFF BY MOUTH TWICE DAILY 30 Active Atorvastatin Calcium 40 MG Orally Once a day 1 tablet 24h 30 Active NovoLog Flexpen 100 UNIT/ML INJECT 50 UNITS SUBCUTANEOUSLY THREE TIMES DAILY 30 Active Nitrostat 0.4 MG Active Sarah Allergy 180 MG Orally Once a day 1 tablet as needed 24h Active Plavix 75 MG Orally Once a day 1 tablet 24h Active Omeprazole 40 mg TAKE ONE CAPSULE BY MOUTH ONCE DAILY 30 Active Amlodipine Besylate 10 MG Orally Once a day 1 tablet 24h Active RESULTS Name Result Date Reference Range A1C (IN HOUSE) 2017-08-30 A1C IN HOUSE 7.1 4.3 - 5.6 % Previous A1c 8.3 Lot [id number] Exp date 04/2019 PROCEDURES Procedure Date Ordered Result Body Site [facility] VISIT ESTABLISHED PATIENT August 30, 2017 GLYCATED HEMOGLOBIN TEST August 30, 2017 INSTRUCTIONS MEDICATIONS ADMINISTERED No Known Medications MEDICAL (GENERAL) HISTORY Type Description Date Medical History Diabetes Medical History Hypertension Medical History Hyperlipidemia Medical History GERD Medical History Heart Attack-x3 Medical History Copd Medical History sleep apena Medical History Thyroid disorder Medical History Parkinson's disease Medical History Diabetic neuropathy Medical History Parital stroke Medical History Asthma Surgical History Triple bypass Surgical History angioplasty Surgical History Thyroid removed per Dr. Garcia 1999 Surgical History appendectomy Surgical History esophageal wrap Hospitalization History lung infection at [facility] 09/2014 Hospitalization History double pneumonia 04/2015 Hospitalization History Double pneumonia 07/2015 [address]ization History [facility] allergic reaction 03/2016 Hospitalization History [facility] spent 2 weeks 03/2016 Hospitalization History [facility]- Pneumonia, COPD with Acute Exacerbation 05/19/2017
--- OUTSIDE RECORDS SUMMARY | 2017-11-01 06:53 | XMS REPORT ---
Author Author ROCKY MORRIS Organization [facility] Address [address] [place] [address] Care Team Providers Care Timber Watchman Name Role Phone ROCKY MORRIS Unavailable PROBLEMS Type Condition ICD9-CM Code [id number] Code Onset Dates Condition Status SNOMED Code Problem Coronary atherosclerosis due to lipid rich plaque I25.83 Active 796478812245861 Problem Panlobular emphysema J43.1 Active 6635599 Problem Atherosclerotic heart disease of [place] coronary artery without angina pectoris I25.10 Active 020199316964193 Problem Simple chronic bronchitis J41.0 Active 53478052 Problem Pure hypercholesterolemia E78.00 Active 992059720 Problem COPD with acute exacerbation J44.1 Active 406907306 Problem rn long term care 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 Z79.4 Active 150705987 Problem Type 2 diabetes mellitus with hyperglycemia E11.65 Active 979951331 Problem 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 Active 012386579908 Problem Type 2 diabetes mellitus with other circulatory complications E11.59 Active 28099657 Problem HTN (hypertension) I10 Active 22827877 Problem CAD (coronary artery disease) I25.10 Active 84142685 Problem Hypothyroid E03.9 Active 58372337 Problem COPD (chronic obstructive pulmonary disease) J44.9 Active 83425567 Problem Environmental allergies Z91.09 Active 838224213 Problem Neuropathy G62.9 Active 921973075 Problem 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 98729022077313 Problem 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 Active 90866667707491 Problem Sleep apnea G47.30 Active 78022055 Problem Edema, unspecified type R60.9 Active 802359121 ALLERGIES No Information ENCOUNTERS Encounter Location Date Diagnosis [facility] [address] [facility] [id number] [address] Oct, [facility] [address] [id number] [address] Aug, COPD (chronic obstructive pulmonary disease) J44.9 ; Hypothyroid E03.9 ; HTN (hypertension) I10 ; Type 2 diabetes mellitus with other circulatory complications E11.59 and BMI 45.0-49.9, adult Z68.42 [place] [id number] [place] [address]68[address] Aug, [place] [address] [address] Jul, [place] [address] [address] Jul, Alcoholism F10.20 ; Parkinson's disease (tremor, stiffness, slow motion, unstable posture) G20 and COPD (chronic obstructive pulmonary disease) J44.9 [place] [address] [address] June, BMI 45.0-49.9, adult Z68.42 and Simple chronic bronchitis J41.0 [place] [address] [address]- [address] June, [place] [address] [address]- [address] May, HTN (hypertension) I10 and Type 2 diabetes mellitus with other circulatory complications E11.59 [place] [id number] [place] [address] 53016- [address] May, [place] [address] [address] May, COPD exacerbation J44.1 [place] [id number] [place] [address] 59831- 6028 Apr, Pure hypercholesterolemia E78.00 [place] [id number] [place] [address] 59486- 0021 Apr, [facility] [id number] [place] [address]71 -[address]404 Mar, Cough R05 ; COPD with acute exacerbation J44.1 and BMI 45.0 -49.9, adult Z68.42 [place] [id number] [place] [address] 48161- 7427 Mar, [facility] [id number] [place] [address] 10950- 8042 Mar, [place] [id number] [place] [address] 12446- 6086 Feb, [place] [address] [address]23- [address]238 Feb, BMI 45.0-49.9, adult Z68.42 and Acute non-recurrent maxillary sinusitis J01.00 [place] [id number] [place] [address] 03232- 4854 Feb, [place] [address] 86677- 9198 Feb, [place] [id number] [place] [address] 34637- 3241 Feb, GERD (gastroesophageal reflux disease) K21.9 [place] [id number] [place] [address] 19597- 0611 Jan, Panlobular emphysema J43.1 ; Type 2 diabetes mellitus with hyperglycemia E11.65 and rn long term care 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 Z79.4 [place] [id number] [place] [address] 15355- 8438 Jan, [facility] [address] [place] [address] 43067 -[address]390 Dec, Chronic obstructive pulmonary disease with acute exacerbation J44.1 ; Cough R05 ; 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 ; Type 2 diabetes mellitus with other circulatory complications E11.59 ; rn long term care 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 Z79.4 and BMI 45.0-49.9, adult Z68.42 [place] [id number] [place] [address] 39599- 8258 Oct, [facility] [address], [place] [address] Sep, [facility] [id number] [place] [address] 25537- 2722 Aug, [facility] [address] [place] [address] 49770- 5084 May, [facility] [id number] [place] [address] 74907- 7650 May, [facility] [id number] [place] [address] 07253- 4168 Apr, [facility] [id number] [place] [address] 30337- 2820 Apr, [facility] [id number] [place] [address] 37193- 8581 Apr, [facility] [address] [place] [address] 11088- 2616 Apr, 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 ; GERD (gastroesophageal reflux disease) K21.9 ; HTN ( hypertension) I10 ; Environmental allergies Z91.09 ; COPD (chronic obstructive pulmonary disease) J44.9 ; Sleep apnea G47.30 ; Hypothyroid E03.9 ; Neuropathy G62.9 ; Pure hypercholesterolemia E78.00 ; Atherosclerotic heart disease of [place] coronary artery without angina pectoris I25.10 ; Coronary atherosclerosis due to lipid rich plaque I25.83 and Edema, unspecified type R60.[address] [address] [place] [address] [id number] Mar, COPD (chronic obstructive pulmonary disease) J44.9 ; Alcoholism F10.20 and 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 [address] [place] [address] [id number] Mar, Open wound T14.8 [facility] [address], [place] [address] Mar, Environmental allergies Z91.09 ; Open wound, lower leg, right, initial encounter S81.801A ; GERD (gastroesophageal reflux disease) K21.9 ; Hypothyroid E03.9 ; Hypercholesterolemia E78.0 ; Sleep apnea G47.30 ; Neuropathy G62.9 ; Edema, unspecified type R60.9 ; 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 ; Coronary artery disease involving [place] coronary artery of [place] heart without angina pectoris I25.10 ; 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 and COPD (chronic obstructive pulmonary disease) J44.9 [place] [id number] [place] [address] 61162- 7883 Mar, [place] [address] 43731- 2191 Mar, [place] [address] 58872- 0752 Mar, [facility] [address] [place] [id number] Mar, Alcoholism F10.20 ; 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 ; COPD (chronic obstructive pulmonary disease) J44.9 and Sleep apnea G47.30 [place] [address] 47105- 2167 Mar, [place] [id number] [place] [address] 82415- 7746 Mar, [place] [id number] [place] [address] 83318- 5276 Feb, 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 ; GERD (gastroesophageal reflux disease) K21.9 ; Hypothyroid E03.9 ; Sleep apnea G47.30 ; Parkinson's disease (tremor, stiffness , slow motion, unstable posture) G20 ; CAD (coronary artery disease) I25.10 ; Edema, unspecified type R60.9 ; COPD (chronic obstructive pulmonary disease) J44.9 and Neuropathy G62.9 [place] [address] 92899- 4565 Jan, HTN (hypertension) I10 [place] [id number] [place] [address] 94033- 6684 Jan, COPD (chronic obstructive pulmonary disease) J44.9 ; Hypothyroid E03.9 ; Environmental allergies Z91.09 ; 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 ; Hypercholesterolemia E78.0 ; Sleep apnea G47.30 ; CAD (coronary artery disease) I25.10 ; HTN (hypertension ) I10 ; GERD (gastroesophageal reflux disease) K21.9 ; Anemia D64.9 and Edema, unspecified type R60.[address] [address]- 3574 Dec, [address] 45406- 5980 Dec, 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 ; GERD (gastroesophageal reflux disease) K21.9 ; HTN ( hypertension) I10 ; Hypothyroid E03.9 ; Environmental allergies Z91.09 ; Sleep apnea G47.30 ; CAD (coronary artery disease) I25.10 ; Hypercholesterolemia E78.0 and COPD (chronic obstructive pulmonary disease) J44.[address] [address]- [address] Oct, [place] [id number] [place] [address] 34114- 0101 Aug, 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 ; GERD (gastroesophageal reflux disease) K21.9 ; Hypothyroid E03.9 ; Environmental allergies Z91.09 ; CAD (coronary artery disease) I25.10 ; Hypercholesterolemia E78.0 ; COPD (chronic obstructive pulmonary disease) J44.9 and Sleep apnea G47.[address] 14471- 1433 Jul, COPD (chronic obstructive pulmonary disease) J44.[address] 8[address]99- 3288 June, [address] [id number] [address] May, [facility] [id number] [place] [address] 71040- 9960 Apr, COPD (chronic obstructive pulmonary disease) J44.9 ; Sleep apnea G47.30 ; HTN (hypertension) I10 ; Hypothyroid E03.9 ; Environmental allergies Z91.09 ; CAD (coronary artery disease) I25.10 ; Hypercholesterolemia E78.0 and 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 [facility] [id number] [place] [address] 32365- 6039 Apr, [facility] [id number] [place] [address] 21184- 4935 Mar, [place] [id number] [place] [address] 78211- 4483 Mar, [facility] [id number] [place] [address] 50621- 2717 Feb, [facility] [id number] [place] [address] 67960- 7978 Feb, 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 ; Hypothyroid E03.9 ; HTN (hypertension) I10 ; COPD ( chronic obstructive pulmonary disease) J44.9 ; Sleep apnea G47.30 ; Hypercholesterolemia E78.0 ; Environmental allergies Z91.09 ; Diarrhea R19.7 and GERD (gastroesophageal reflux disease) K21.9 [facility] [address], [place] [address] Feb, [facility] [id number] [address] Jan, [facility] [id number] [place] [address] 91379- 2477 Jan, [facility] [address], [place] [address] Jan, [facility] [address] [address] 15 Jan, 2015 Anemia D64.9 [facility] [address] [facility] [id number] [address] 14 Jan, 2015 [facility] [address] [facility] [id number], [place] [address] 10 Jan, 2015 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 ; Hypothyroid E03.9 ; HTN (hypertension) I10 ; COPD ( chronic obstructive pulmonary disease) J44.9 ; Sleep apnea G47.30 ; Hypercholesterolemia E78.0 ; CAD (coronary artery disease) I25.10 and Environmental allergies Z91.09 IMMUNIZATIONS No Known Immunizations SOCIAL HISTORY Never Assessed REASON FOR VISIT Refill request PLAN OF CARE VITAL SIGNS MEDICATIONS Medication Instructions Dosage Frequency Start Date End Date Duration Status Bumex 2 MG Orally Once a day 1 tablet 24h 30 Active Omeprazole 40 mg TAKE ONE CAPSULE BY MOUTH ONCE DAILY 30 Active RESULTS No Results PROCEDURES No Known procedures INSTRUCTIONS MEDICATIONS ADMINISTERED No Known Medications MEDICAL [...] esophageal wrap Hospitalization History lung infection at [facility] 09/2014 Hospitalization History double pneumonia 04/2015 Hospitalization History Double pneumonia 07/2015 Hospitalization History [facility] allergic reaction 03/2016 Hospitalization History [facility] spent 2 weeks 03/2016 Hospitalization History [facility]- Pneumonia, COPD with Acute Exacerbation 05/19/2017
--- OUTSIDE RECORDS SUMMARY | 2017-11-01 06:53 | XMS REPORT ---
Author Author ROCKY MORRIS Organization [facility] Address [address] [place] [address] Care Team Providers Care Continuous Drier Operator Name Role Phone ROCKY MORRIS Unavailable PROBLEMS Type Condition ICD9-CM Code [id number] Code Onset Dates Condition Status SNOMED Code Problem Coronary atherosclerosis due to lipid rich plaque I25.83 Active [id number] Problem Panlobular emphysema J43.1 Active 9428961 Problem Atherosclerotic heart disease of [place] coronary artery without angina pectoris I25.10 Active 746843760917509 Problem Simple chronic bronchitis J41.0 Active 86027712 Problem Pure hypercholesterolemia E78.00 Active 305124935 Problem COPD with acute exacerbation J44.1 Active 516261418 Problem buttermaker continuous churn 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 Z79.4 Active 596905851 Problem Type 2 diabetes mellitus with hyperglycemia E11.65 Active 270132905 Problem 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 Active 462730155669 Problem Type 2 diabetes mellitus with other circulatory complications E11.59 Active 20256023 Problem HTN (hypertension) I10 Active 61050394 Problem CAD (coronary artery disease) I25.10 Active 86640566 Problem Hypothyroid E03.9 Active 01861068 Problem COPD (chronic obstructive pulmonary disease) J44.9 Active 80746313 Problem Environmental allergies Z91.09 Active 701468606 Problem Neuropathy G62.9 Active 615864231 Problem 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 92855138616025 Problem 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 Active 62651579356716 Problem Sleep apnea G47.30 Active 94295686 Problem Edema, unspecified type R60.9 Active 569444174 ALLERGIES Substance Reaction Event Type Date Status Gabapentin anaphylaxis Drug Allergy Jul, Active Cozaar anaphylaxis Drug Allergy Jul, Active Benazepril HCl anaphylaxis Drug Allergy Jul, Active ENCOUNTERS Encounter Location Date Diagnosis [facility] [address] [facility] [id number] [address] Aug, COPD (chronic obstructive pulmonary disease) J44.9 ; Hypothyroid E03.9 ; HTN (hypertension) I10 ; Type 2 diabetes mellitus with other circulatory complications E11.59 and BMI 45.0-49.9, adult Z68.42 [facility] [address] [place] [id number] [place] [address] Aug, [facility] [address] [address] Jul, [facility] [address] [address] Jul, Alcoholism F10.20 ; Parkinson's disease (tremor, stiffness, slow motion, unstable posture) G20 and COPD (chronic obstructive pulmonary disease) J44.9 [facility] [address] [address] June, BMI 45.0-49.9, adult Z68.42 and Simple chronic bronchitis J41.0 [facility] [address] [address] June, [facility] [address] [address] May, HTN (hypertension) I10 and Type 2 diabetes mellitus with other circulatory complications E11.59 [facility] [address] [id number] [place] [address] May, [facility] [address] [address] May, COPD exacerbation J44.1 [facility] [address] [address] Apr, Pure hypercholesterolemia E78.00 [facility] [address] [address] Apr, [facility] [address] [address] Mar, Cough R05 ; COPD with acute exacerbation J44.1 and BMI 45.0 -49.9, adult Z68.42 [facility] [address] [id number] [place] [address] Mar, [facility] [id number] [place] [address] Mar, [facility] [address] [address] Feb, [facility] [address] [address] Feb, BMI 45.0-49.9, adult Z68.42 and Acute non-recurrent maxillary sinusitis J01.00 [facility] [address] [address] [id number] [place] [address] Feb, [facility] [address] [address] Feb, [facility] [address] [address] [id number] [place] [address] Feb, GERD (gastroesophageal reflux disease) K21.9 [facility] [address] [id number] [place] [address] Jan, Panlobular emphysema J43.1 ; Type 2 diabetes mellitus with hyperglycemia E11.65 and buttermaker continuous churn 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 Z79.4 [facility] [id number] [place] [address] Jan, 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 ; Type 2 diabetes mellitus with other circulatory complications E11.59 ; buttermaker continuous churn 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 Z79.4 and BMI 45.0-49.9, adult Z68.42 [facility] [address] [id number] [place] [address]67- [address] Oct, [facility] [address] [id number] Sep, [facility] [address], [place] [address] Aug, [facility] [address], [place] [address] May, [facility] [id number] [place] [address] 956681- 99[address] May, [facility] [id number] [place] [address]- [address] Apr, [facility] [id number] [place] [address]58- 6017 Apr, [facility] [address] [id number] [address] Apr, [facility] [address], [place] [address] Apr, 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 ; GERD (gastroesophageal reflux disease) K21.9 ; HTN ( hypertension) I10 ; Environmental allergies Z91.09 ; COPD (chronic obstructive pulmonary disease) J44.9 ; Sleep apnea G47.30 ; Hypothyroid E03.9 ; Neuropathy G62.9 ; Pure hypercholesterolemia E78.00 ; Atherosclerotic heart disease of [place] coronary artery without angina pectoris I25.10 ; Coronary atherosclerosis due to lipid rich plaque I25.83 and Edema, unspecified type R60.9 [facility] [address] [place] [id number] Mar, COPD (chronic obstructive pulmonary disease) J44.9 ; Alcoholism F10.20 and 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 [employer] [employer] [address] [place] [id number] Mar, Open wound T14.8 [facility] [address], [place] [address] 20 Feb, 2017 Environmental allergies Z91.09 ; Open wound, lower leg, right, initial encounter S81.801A ; GERD (gastroesophageal reflux disease) K21.9 ; Hypothyroid E03.9 ; Hypercholesterolemia E78.0 ; Sleep apnea G47.30 ; Neuropathy G62.9 ; Edema, unspecified type R60.9 ; 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 ; Coronary artery disease involving [place] coronary artery of [place] heart without angina pectoris I25.10 ; 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 and COPD (chronic obstructive pulmonary disease) J44.9 [facility] [address] [address] [id number] [place] [address]- [address] Mar, [facility] [address] [address] Mar, [facility] [address] [address] Mar, [employer] [address] [place] [id number] Mar, Alcoholism F10.20 ; 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 ; COPD (chronic obstructive pulmonary disease) J44.9 and Sleep apnea G47.30 [facility] [address] [place] [id number] [place] [address]81- 8[address] Mar, [facility] [address] [address] Mar, [facility] [address] [place] [id number] [place] [address] 13385- 0[address] Feb, 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 ; GERD (gastroesophageal reflux disease) K21.9 ; Hypothyroid E03.9 ; Sleep apnea G47.30 ; Parkinson's disease (tremor, stiffness , slow motion, unstable posture) G20 ; CAD (coronary artery disease) I25.10 ; Edema, unspecified type R60.9 ; COPD (chronic obstructive pulmonary disease) J44.9 and Neuropathy G62.9 [facility] [address] [address] Jan, HTN (hypertension) I10 [facility] [address] [address] [id number] [place] [address] 26[address]- [address] Jan, COPD (chronic obstructive pulmonary disease) J44.9 ; Hypothyroid E03.9 ; Environmental allergies Z91.09 ; 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 ; Hypercholesterolemia E78.0 ; Sleep apnea G47.30 ; CAD (coronary artery disease) I25.10 ; HTN (hypertension ) I10 ; GERD (gastroesophageal reflux disease) K21.9 ; Anemia D64.9 and Edema, unspecified type R60.9 [facility] [address] [address] Dec, [facility] [address] [address] Dec, 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 ; GERD (gastroesophageal reflux disease) K21.9 ; HTN ( hypertension) I10 ; Hypothyroid E03.9 ; Environmental allergies Z91.09 ; Sleep apnea G47.30 ; CAD (coronary artery disease) I25.10 ; Hypercholesterolemia E78.0 and COPD (chronic obstructive pulmonary disease) J44.9 [facility] [address] [address] Oct, [facility] [address] [address] Aug, 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 ; GERD (gastroesophageal reflux disease) K21.9 ; Hypothyroid E03.9 ; Environmental allergies Z91.09 ; CAD (coronary artery disease) I25.10 ; Hypercholesterolemia E78.0 ; COPD (chronic obstructive pulmonary disease) J44.9 and Sleep apnea G47.30 [facility] [address] [address] Jul, COPD (chronic obstructive pulmonary disease) J44.9 [facility] [address] [address]- [address] June, [facility] [address], [place] [address] May, [facility] [address] [place] [id number] [place] [address]- [address] Apr, COPD (chronic obstructive pulmonary disease) J44.9 ; Sleep apnea G47.30 ; HTN (hypertension) I10 ; Hypothyroid E03.9 ; Environmental allergies Z91.09 ; CAD (coronary artery disease) I25.10 ; Hypercholesterolemia E78.0 and 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 [facility] [address], [place] [address] Apr, [facility] [address] [id number] [place] [address]- [address] Mar, [facility] [address] [address] [id number] [place] [address]- 118[address] Mar, [facility] [address] [address] Feb, [facility] [address], [place] [address] Feb, 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 ; Hypothyroid E03.9 ; HTN (hypertension) I10 ; COPD ( chronic obstructive pulmonary disease) J44.9 ; Sleep apnea G47.30 ; Hypercholesterolemia E78.0 ; Environmental allergies Z91.09 ; Diarrhea R19.7 and GERD (gastroesophageal reflux disease) K21.9 [facility] [address], [place] [address] Feb, [facility] [address], [place] [address] Jan, [facility] [address] [address] Jan, [facility] [address], [place] [address] Jan, [facility] [facility] [address] [facility] [id number] [address] 15 Jan, 2015 Anemia D64.9 [facility] [address] [facility] [id number], [place] [address] 14 Jan, 2015 [facility] [address] [facility] [id number], [place] [address] 10 Jan, 2015 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 ; Hypothyroid E03.9 ; HTN (hypertension) I10 ; COPD ( chronic obstructive pulmonary disease) J44.9 ; Sleep apnea G47.30 ; Hypercholesterolemia E78.0 ; CAD (coronary artery disease) I25.10 and Environmental allergies Z91.09 IMMUNIZATIONS No Known Immunizations SOCIAL HISTORY Never Assessed REASON FOR VISIT COPD-[place] STILES PLAN OF CARE Activity Details Follow Up 4 Weeks Reason:copd VITAL SIGNS Height 72.0 in 2017-07-31 Weight 343.7 lbs 2017-07-31 Temperature 97.8 degrees Fahrenheit 2017-07-31 Heart Rate 62 bpm 2017-07-31 Respiratory Rate 16 2017-07-31 Oximetry w/ oxygen @ 3L:98 % 2017-07-31 BMI 46.61 kg/m2 2017-07-31 Blood pressure systolic 144 mmHg 2017-07-31 Blood pressure diastolic 78 mmHg 2017-07-31 MEDICATIONS Medication Instructions Dosage Frequency Start Date End Date Duration Status Atorvastatin Calcium 40 MG Orally Once a day 1 tablet 24h 30 Active Loratadine 10 MG Orally Once a day 1 tablet 24h Active Sarah Allergy 180 MG Orally Once a day 1 tablet as needed 24h Active Spiriva HandiHaler 18 MCG INHALE CONTENTS OF ONE CAPSULE BY MOUTH ONCE DAILY (TWO INHALATIONS PER ONE CAPSULE) 30 Active Acetaminophen 325 MG Orally every 4 hrs prn pain 1 capsule as needed Active Omeprazole 40 MG TAKE ONE CAPSULE BY MOUTH ONCE DAILY 30 Active Metformin HCl 1000 MG Orally Twice a day 1 tablet with meals 12h 30 Active Levothyroxine Sodium 150 MCG TAKE TWO TABLETS BY MOUTH ONCE DAILY (MUST HAVE APPOINTMENT FOR REFILL) 30 Active Amlodipine Besylate 10 MG Orally Once a day 1 tablet 24h Active Fish Oil 8h Active Guaifenesin 200 MG Orally every 4 hrs 1 tablet as needed 4h Active Advair Diskus 250-50 MCG/DOSE INHALE ONE PUFF BY MOUTH TWICE DAILY 30 Active Docusate Sodium 250 MG Orally twice a day prn constipation 1 capsule as needed Active Plavix 75 MG Orally Once a day 1 tablet 24h Active Bumex 2 MG Orally Once a day 1 tablet 24h 30 Active Levemir FlexTouch 100 UNIT/ML Subcutaneous 2 times a day 50 units 12h 30 Active Oxygen 3 L by inhalation route continious 1 puff Apr, Active Metoprolol Succinate 100 by oral route Once a day (total of 150 mg) 1.5 tabs Active Multivitamin Adult - Active NovoLog Flexpen 100 UNIT/ML INJECT 50 UNITS SUBCUTANEOUSLY THREE TIMES DAILY 30 Active Potassium 99 MG Orally Once a day 1 tablet 24h Active Albuterol Sulfate (2.5 MG/3ML) 0.083% Inhalation every 4 hours prn 3 ml Active Hydrocodone-Acetaminophen 7.5-325 MG Orally 3 times a day 1 tablet as needed 8h June, 15 days Active Hydrochlorothiazide 25 MG TAKE ONE TABLET BY MOUTH ONCE DAILY 30 Active Nitrostat 0.4 MG Active Aspirin 81 MG Orally Once a day 1 tablet 24h Active Augmentin 875-125 MG Orally every 12 hrs 1 tablet 12h Active RESULTS No Results PROCEDURES No Known [...] History Double pneumonia 07/2015 Hospitalization History [facility] [place] allergic reaction 03/2016 Hospitalization History [facility] spent 2 weeks 03/2016 Hospitalization History [facility]- Pneumonia, COPD with Acute Exacerbation 05/19/2017
--- OUTSIDE RECORDS SUMMARY | 2017-11-01 06:53 | XMS REPORT ---
Author Author ROCKY MORRIS [facility] Address [address] [place] [address] Care Team Providers Care Hydrometeorologist Name Role Phone ROCKY MORRIS Unavailable PROBLEMS Type Condition ICD9-CM Code SMZ09-KL Code Onset Dates Condition Status SNOMED Code Problem Coronary atherosclerosis due to lipid rich plaque I25.83 Active 793265003729395 Problem Panlobular emphysema J43.1 Active 8608687 Problem Atherosclerotic heart disease of [place] coronary artery without angina pectoris I25.10 Active 151380292064570 Problem Simple chronic bronchitis J41.0 Active 10453509 Problem Pure hypercholesterolemia E78.00 Active 505793378 Problem COPD with acute exacerbation J44.1 Active 083348084 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 Active 061271971 Problem Type 2 diabetes mellitus with hyperglycemia E11.65 Active 798665842 Problem 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 Active 203618083508 Problem Type 2 diabetes mellitus with other circulatory complications E11.59 Active 81045730 Problem HTN (hypertension) I10 Active 71471203 Problem CAD (coronary artery disease) I25.10 Active 66481900 Problem Hypothyroid E03.9 Active 01159487 Problem COPD (chronic obstructive pulmonary disease) J44.9 Active 59105395 Problem Environmental allergies Z91.09 Active 316064174 Problem Neuropathy G62.9 Active 023745794 Problem 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 88135194173943 Problem 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 Active 91021029635469 Problem Sleep apnea G47.30 Active 45413326 Problem Edema, unspecified type R60.9 Active 339041114 ALLERGIES No Information ENCOUNTERS Encounter Location Date Diagnosis [facility] [address] [facility] [id number] [place] [address] Aug, COPD (chronic obstructive pulmonary disease) J44.9 ; Hypothyroid E03.9 ; HTN (hypertension) I10 ; Type 2 diabetes mellitus with other circulatory complications E11.59 and BMI 45.0-49.9, adult Z68.42 [place] [address] [address] Aug, [place] [address] [address] Jul, [place] [address] [address] Jul, Alcoholism F10.20 ; Parkinson's disease (tremor, stiffness, slow motion, unstable posture) G20 and COPD (chronic obstructive pulmonary disease) J44.9 [place] [address] [address] June, BMI 45.0-49.9, adult Z68.42 and Simple chronic bronchitis J41.[address] [address] June, [place] [address] [address] May, HTN (hypertension) I10 and Type 2 diabetes mellitus with other circulatory complications E11.59 [place] [address] [place] [id number] [place] [address] 10 May, 2017 [place] [address] [address] May, COPD exacerbation J44.1 [place] [address] [address] Apr, Pure hypercholesterolemia E78.00 [place] [address] [address] Apr, [facility] [address] [address] Mar, Cough R05 ; COPD with acute exacerbation J44.1 and BMI 45.0 -49.9, adult Z68.42 [place] [id number] [place] [address]- 365[address] Mar, [facility] [address] [place] [id number] [place] [address] Mar, [facility] [address] [place] [id number] [place] [address]- [address] Feb, [facility] [address] [address] Feb, BMI 45.0-49.9, adult Z68.42 and Acute non-recurrent maxillary sinusitis J01.00 [place] [address] [address] Feb, [place] [address] [place] [id number] [place] [address]64- [address] Feb, [place] [address] [address] Feb, GERD (gastroesophageal reflux disease) K21.9 [place] [address] [place] [id number] [place] [address]91- [address] Jan, Panlobular emphysema J43.1 ; Type 2 diabetes mellitus with hyperglycemia E11.65 and 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 [place] [id number] [place] [address]- [address] Jan, [facility] [id number] [place] [address] Dec, Chronic obstructive pulmonary disease with acute exacerbation J44.1 ; Cough R05 ; 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 ; Type 2 diabetes mellitus with other circulatory complications E11.59 ; 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 and BMI 45.0-49.9, adult Z68.42 [facility] [address] [place] [address]- [address] Oct, [facility] [address] [place] [id number] [place] [address]242- [address] Sep, [facility] [address] [place] [id number] [address] Aug, [facility] [address] [address] May, [facility] [address] [place] [address]- [address] May, [facility] [address] [place] [id number] [place] [address] 52459- 6687 Apr, [facility] [address] [place] [id number] [place] [address] 43383- 4731 Apr, [facility] [address] [place] [id number] [place] [address] 6[address]27- [address] Apr, [facility] [address] [place] [address] 7[address]16- [address] Apr, 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 ; GERD (gastroesophageal reflux disease) K21.9 ; HTN ( hypertension) I10 ; Environmental allergies Z91.09 ; COPD (chronic obstructive pulmonary disease) J44.9 ; Sleep apnea G47.30 ; Hypothyroid E03.9 ; Neuropathy G62.9 ; Pure hypercholesterolemia E78.00 ; Atherosclerotic heart disease of [place] coronary artery without angina pectoris I25.10 ; Coronary atherosclerosis due to lipid rich plaque I25.83 and Edema, unspecified type R60.[address] [facility] [address] [place] [id number] Mar, COPD (chronic obstructive pulmonary disease) J44.9 ; Alcoholism F10.20 and 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 [facility] [address] [place] [id number] Mar, Open wound T14.8 [facility] [address] [address] Mar, Environmental allergies Z91.09 ; Open wound, lower leg, right, initial encounter S81.801A ; GERD (gastroesophageal reflux disease) K21.9 ; Hypothyroid E03.9 ; Hypercholesterolemia E78.0 ; Sleep apnea G47.30 ; Neuropathy G62.9 ; Edema, unspecified type R60.9 ; 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 ; Coronary artery disease involving [place] coronary artery of [place] heart without angina pectoris I25.10 ; 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 and COPD (chronic obstructive pulmonary disease) J44.9 [address] [place] [address] Mar, [place] [address] [place] [id number] [place] [address] 55783- 9[address] Mar, [place] [id number] [place] [address]- [address] Mar, [facility] [address] [place] [id number] Mar, Alcoholism F10.20 ; 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 ; COPD (chronic obstructive pulmonary disease) J44.9 and Sleep apnea G47.30 [place] [id number] [place] [address] Mar, [place] [id number] [place] [address] 0[address]66- [address] Mar, [place] [id number] [place] [address] 01126- [address] Feb, 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 ; GERD (gastroesophageal reflux disease) K21.9 ; Hypothyroid E03.9 ; Sleep apnea G47.30 ; Parkinson's disease (tremor, stiffness , slow motion, unstable posture) G20 ; CAD (coronary artery disease) I25.10 ; Edema, unspecified type R60.9 ; COPD (chronic obstructive pulmonary disease) J44.9 and Neuropathy G62.9 [address] [place] [address]- [address] Jan, HTN (hypertension) I10 [place] [id number] [place] [address]47- [address] Jan, COPD (chronic obstructive pulmonary disease) J44.9 ; Hypothyroid E03.9 ; Environmental allergies Z91.09 ; 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 ; Hypercholesterolemia E78.0 ; Sleep apnea G47.30 ; CAD (coronary artery disease) I25.10 ; HTN (hypertension ) I10 ; GERD (gastroesophageal reflux disease) K21.9 ; Anemia D64.9 and Edema, unspecified type R60.[address] [address] Dec, [address] [address] Dec, 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 ; GERD (gastroesophageal reflux disease) K21.9 ; HTN ( hypertension) I10 ; Hypothyroid E03.9 ; Environmental allergies Z91.09 ; Sleep apnea G47.30 ; CAD (coronary artery disease) I25.10 ; Hypercholesterolemia E78.0 and COPD (chronic obstructive pulmonary disease) J44.9 [place] [id number] [place] [address] Oct, [address] [address] Aug, 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 ; GERD (gastroesophageal reflux disease) K21.9 ; Hypothyroid E03.9 ; Environmental allergies Z91.09 ; CAD (coronary artery disease) I25.10 ; Hypercholesterolemia E78.0 ; COPD (chronic obstructive pulmonary disease) J44.9 and Sleep apnea G47.30 [place] [id number] [place] [address]- 29[address] Jul, COPD (chronic obstructive pulmonary disease) J44.9 [place] [id number] [place] [address]- [address] June, [address] [address] May, [address] [id number] [address] Apr, COPD (chronic obstructive pulmonary disease) J44.9 ; Sleep apnea G47.30 ; HTN (hypertension) I10 ; Hypothyroid E03.9 ; Environmental allergies Z91.09 ; CAD (coronary artery disease) I25.10 ; Hypercholesterolemia E78.0 and 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 [place] [address] [place] [id number] [place] [address]- 89[address] Apr, [place] [address] [place] [id number] [place] [address] 8[address]37- 7967 Mar, [place] [address] [place] [id number] [place] [address] 8[address]59- [address] Mar, [place] [address] [place] [id number] [place] [address] 43021- 2160 Feb, [place] [address] [place] [id number] [place] [address] 35372- 3496 Feb, 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 ; Hypothyroid E03.9 ; HTN (hypertension) I10 ; COPD ( chronic obstructive pulmonary disease) J44.9 ; Sleep apnea G47.30 ; Hypercholesterolemia E78.0 ; Environmental allergies Z91.09 ; Diarrhea R19.7 and GERD (gastroesophageal reflux disease) K21.9 [place] [address] [address] Feb, [place] [address] [place] [id number] [place] [address]- [address] Jan, [place] [address] [place] [id number] [place] [address] 92221- 9614 Jan, [place] [address] [place] [id number] [place] [address] [id number]- 3808 Jan, [place] [address] [address] Jan, Anemia D64.9 [place] [address] [facility] [id number] [place] [address] 14 Jan, 2015 [facility] [address] [facility] [id number] [address] 10 Jan, 2015 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 ; Hypothyroid E03.9 ; HTN (hypertension) I10 ; COPD ( chronic obstructive pulmonary disease) J44.9 ; Sleep apnea G47.30 ; Hypercholesterolemia E78.0 ; CAD (coronary artery disease) I25.10 and Environmental allergies Z91.09 IMMUNIZATIONS No Known Immunizations SOCIAL HISTORY Never Assessed REASON FOR VISIT Controlled Med Refill PLAN OF CARE VITAL SIGNS MEDICATIONS Medication Instructions Dosage Frequency Start Date End Date Duration Status Hydrocodone-Acetaminophen 7.5-325 MG Orally 3 times a day 1 tablet as needed 8h Jul, 15 days Active RESULTS No Results PROCEDURES No Known [...] Via [facility] allergic reaction 03/2016 Hospitalization History [facility] spent 2 weeks 03/2016 Hospitalization History [facility]- Pneumonia, COPD with Acute Exacerbation 05/19/2017
--- OUTSIDE RECORDS SUMMARY | 2017-11-01 06:54 | XMS REPORT ---
Author Author ROCKY MORRIS [facility] Address [address] [place] [address] Care Team Providers Care Mattress Weaver Name Role Phone ROCKY MORRIS Unavailable PROBLEMS Type Condition ICD9-CM Code [id number] Code Onset Dates Condition Status SNOMED Code Problem Coronary atherosclerosis due to lipid rich plaque I25.83 Active 221918656519283 Problem Panlobular emphysema J43.1 Active 5961889 Problem Atherosclerotic heart disease of sun'aq coronary artery without angina pectoris I25.10 Active 175273421177010 Problem Simple chronic bronchitis J41.0 Active 27228362 Problem Pure hypercholesterolemia E78.00 Active 161556259 Problem COPD with acute exacerbation J44.1 Active 931444766 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 Active 628364766 Problem Type 2 diabetes mellitus with hyperglycemia E11.65 Active 317805671 Problem 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 Active 091829861571 Problem Type 2 diabetes mellitus with other circulatory complications E11.59 Active 37330190 Problem HTN (hypertension) I10 Active 97033135 Problem CAD (coronary artery disease) I25.10 Active 21765831 Problem Hypothyroid E03.9 Active 66750867 Problem COPD (chronic obstructive pulmonary disease) J44.9 Active 83090859 Problem Environmental allergies Z91.09 Active 947145984 Problem Neuropathy G62.9 Active 972235526 Problem 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 [id number] [place] [address] Aug, COPD (chronic obstructive pulmonary disease) J44.9 ; Hypothyroid E03.9 ; HTN (hypertension) I10 ; Type 2 diabetes mellitus with other circulatory complications E11.59 and BMI 45.0-49.9, adult Z68.42 [place] [address] [address] Aug, [place] [address] [address] Jul, [place] [address] [address] Jul, Alcoholism F10.20 ; Parkinson's disease (tremor, stiffness, slow motion, unstable posture) G20 and COPD (chronic obstructive pulmonary disease) J44.9 [place] [address] [address] June, BMI 45.0-49.9, adult Z68.42 and Simple chronic bronchitis J41.[address] [address] June, [place] [address] [address] May, HTN (hypertension) I10 and Type 2 diabetes mellitus with other circulatory complications E11.59 [place] [address] [place] [id number] [place] [address]16- [address] 10 May, 2017 [place] [address] [address] May, COPD exacerbation J44.1 [place] [address] [address] Apr, Pure hypercholesterolemia E78.00 [place] [address] [address] Apr, [facility] [address] [address] Mar, Cough R05 ; COPD with acute exacerbation J44.1 and BMI 45.0 -49.9, adult Z68.42 [place] [id number] [place] [address] 47887- 9446 Mar, [facility] [address] [place] [id number] [place] [address] 18202- 5695 Mar, [facility] [address] [place] [id number] [place] [address] 94858- 8514 Feb, [facility] [address] [address] Feb, BMI 45.0-49.9, adult Z68.42 and Acute non-recurrent maxillary sinusitis J01.00 [place] [address] [address]- [address] Feb, [place] [address] [place] [id number] [place] [address] 9[address]21- 2343 Feb, [place] [address] [address]- [address] Feb, GERD (gastroesophageal reflux disease) K21.9 [place] [address] [place] [id number] [place] [address] 7[address]48- 7[address] Jan, Panlobular emphysema J43.1 ; Type 2 diabetes mellitus with hyperglycemia E11.65 and 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 [place] [address] [place] [address] 79292- [address]79 Jan, [facility] [id number] [place] [address] Dec, Chronic obstructive pulmonary disease with acute exacerbation J44.1 ; Cough R05 ; 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 ; Type 2 diabetes mellitus with other circulatory complications E11.59 ; 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 and BMI 45.0-49.9, adult Z68.42 [facility] [address] [place] [address] 52461- 5638 Oct, [facility] [address] [place] [id number] [place] [address] 24416- 2564 Sep, [facility] [address] [id number] [address] Aug, [facility] [address] [address] May, [facility] [address] [place] [address] 96192- 7991 May, [facility] [address] [place] [id number] [place] [address] 44364- 3244 Apr, [facility] [address] [place] [id number] [place] [address] 63741- 6063 Apr, [facility] [address] [place] [id number] [place] [address] 57213- 9070 Apr, [facility] [address] [place] [address] 35007- 4997 Apr, 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 ; GERD (gastroesophageal reflux disease) K21.9 ; HTN ( hypertension) I10 ; Environmental allergies Z91.09 ; COPD (chronic obstructive pulmonary disease) J44.9 ; Sleep apnea G47.30 ; Hypothyroid E03.9 ; Neuropathy G62.9 ; Pure hypercholesterolemia E78.00 ; Atherosclerotic heart disease of sun'aq coronary artery without angina pectoris I25.10 ; Coronary atherosclerosis due to lipid rich plaque I25.83 and Edema, unspecified type R60.[address] [facility] [address] [place] [id number] Mar, COPD (chronic obstructive pulmonary disease) J44.9 ; Alcoholism F10.20 and 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 [facility] [address] [place] [address] [id number] Mar, Open wound T14.8 [facility] [address] [address] Mar, Environmental allergies Z91.09 ; Open wound, lower leg, right, initial encounter S81.801A ; GERD (gastroesophageal reflux disease) K21.9 ; Hypothyroid E03.9 ; Hypercholesterolemia E78.0 ; Sleep apnea G47.30 ; Neuropathy G62.9 ; Edema, unspecified type R60.9 ; 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 ; Coronary artery disease involving sun'aq coronary artery of sun'aq heart without angina pectoris I25.10 ; 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 and COPD (chronic obstructive pulmonary disease) J44.[address] [place] [address]- [address] Mar, [place] [address] [place] [id number] [place] [address]13- [address] Mar, [place] [id number] [place] [address] 90463- 6794 Mar, [facility] [address] [place] [id number] Mar, Alcoholism F10.20 ; 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 ; COPD (chronic obstructive pulmonary disease) J44.9 and Sleep apnea G47.30 [place] [id number] [place] [address] 46841- 5[address] Mar, [place] [id number] [place] [address] 40758- 0140 Mar, [place] [id number] [place] [address] 72400- 9461 Feb, 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 ; GERD (gastroesophageal reflux disease) K21.9 ; Hypothyroid E03.9 ; Sleep apnea G47.30 ; Parkinson's disease (tremor, stiffness , slow motion, unstable posture) G20 ; CAD (coronary artery disease) I25.10 ; Edema, unspecified type R60.9 ; COPD (chronic obstructive pulmonary disease) J44.9 and Neuropathy G62.[address] [place] [address] 76835- 78[address] Jan, HTN (hypertension) I10 [place] [id number] [place] [address] 55253- 8325 Jan, COPD (chronic obstructive pulmonary disease) J44.9 ; Hypothyroid E03.9 ; Environmental allergies Z91.09 ; 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 ; Hypercholesterolemia E78.0 ; Sleep apnea G47.30 ; CAD (coronary artery disease) I25.10 ; HTN (hypertension ) I10 ; GERD (gastroesophageal reflux disease) K21.9 ; Anemia D64.9 and Edema, unspecified type R60.[address] [address]- [address] Dec, [address] [address]- [address] Dec, 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 ; GERD (gastroesophageal reflux disease) K21.9 ; HTN ( hypertension) I10 ; Hypothyroid E03.9 ; Environmental allergies Z91.09 ; Sleep apnea G47.30 ; CAD (coronary artery disease) I25.10 ; Hypercholesterolemia E78.0 and COPD (chronic obstructive pulmonary disease) J44.9 [place] [id number] [place] [address] 58260- 4734 Oct, [address] [address]- [address] Aug, 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 ; GERD (gastroesophageal reflux disease) K21.9 ; Hypothyroid E03.9 ; Environmental allergies Z91.09 ; CAD (coronary artery disease) I25.10 ; Hypercholesterolemia E78.0 ; COPD (chronic obstructive pulmonary disease) J44.9 and Sleep apnea G47.30 [place] [id number] [place] [address] 02153- 1046 Jul, COPD (chronic obstructive pulmonary disease) J44.9 [place] [id number] [place] [address] 17328- 6293 June, [address] [address]- [address] May, [address] [id number] [address] Apr, COPD (chronic obstructive pulmonary disease) J44.9 ; Sleep apnea G47.30 ; HTN (hypertension) I10 ; Hypothyroid E03.9 ; Environmental allergies Z91.09 ; CAD (coronary artery disease) I25.10 ; Hypercholesterolemia E78.0 and 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 [place] [address] [place] [id number] [place] [address] 01644- 5786 Apr, [place] [address] [place] [id number] [place] [address] 83522- 4061 Mar, [place] [address] [place] [id number] [place] [address] 78348- 4923 Mar, [place] [address] [place] [id number] [place] [address] 11430- 0909 Feb, [place] [address] [place] [id number] [place] [address] 17785- 9687 Feb, 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 ; Hypothyroid E03.9 ; HTN (hypertension) I10 ; COPD ( chronic obstructive pulmonary disease) J44.9 ; Sleep apnea G47.30 ; Hypercholesterolemia E78.0 ; Environmental allergies Z91.09 ; Diarrhea R19.7 and GERD (gastroesophageal reflux disease) K21.9 [place] [address] [address] Feb, [place] [address] [place] [id number] [place] [address] 51300- 3719 Jan, [place] [address] [place] [id number] [place] [address] 79525- 8238 Jan, [place] [address] [place] [id number] [place] [address] 687495- 8032 Jan, [place] [address] [address] Jan, Anemia D64.9 [place] [address] [facility] [id number] [place] [address] 14 Jan, 2015 [facility] [address] [facility] [id number] [address] 10 Jan, 2015 Type 2 diabetes mellitus [...] as needed 8h June, 15 days Active RESULTS No Results PROCEDURES [...] Valorie allergic reaction 03/2016 Hospitalization History [facility] spent 2 weeks 03/2016 Hospitalization History [facility]- Pneumonia, COPD with Acute Exacerbation 05/19/2017
--- OUTSIDE RECORDS SUMMARY | 2017-11-01 06:54 | XMS REPORT ---
Author Author ROCKY MORRIS Organization [facility] Address [address] [place] [address] Care Team Providers Care Assessment Consultant Name Role Phone ROCKY MORRSI Unavailable PROBLEMS Type Condition ICD9-CM Code ARS75-ZP Code Onset Dates Condition Status SNOMED Code Problem Coronary atherosclerosis due to lipid rich plaque I25.83 Active 319566834311054 Problem Panlobular emphysema J43.1 Active 5972496 Problem Atherosclerotic heart disease of [place] coronary artery without angina pectoris I25.10 Active 031390979953503 Problem Simple chronic bronchitis J41.0 Active 23160121 Problem Pure hypercholesterolemia E78.00 Active 720166802 Problem COPD with acute exacerbation J44.1 Active 610426295 Problem 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 Active 502667336 Problem Type 2 diabetes mellitus with hyperglycemia E11.65 Active 140369718 Problem 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 Active 983596163556 Problem Type 2 diabetes mellitus with other circulatory complications E11.59 Active 57587125 Problem HTN (hypertension) I10 Active 23363476 Problem CAD (coronary artery disease) I25.10 Active 59421383 Problem Hypothyroid E03.9 Active 15057775 Problem COPD (chronic obstructive pulmonary disease) J44.9 Active 95422154 Problem Environmental allergies Z91.09 Active 031844280 Problem Neuropathy G62.9 Active 511145348 Problem 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 36696095392107 Problem 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 Active 08244210183215 Problem Sleep apnea G47.30 Active 49797046 Problem Edema, unspecified type R60.9 Active 410303367 ALLERGIES Substance Reaction Event Type Date Status Gabapentin anaphylaxis Drug Allergy May, Active Cozaar anaphylaxis Drug Allergy May, Active Benazepril HCl anaphylaxis Drug Allergy May, Active ENCOUNTERS Encounter Location Date Diagnosis [facility] [address] [facility] [id number] [address] Aug, COPD (chronic obstructive pulmonary disease) J44.9 ; Hypothyroid E03.9 ; HTN (hypertension) I10 ; Type 2 diabetes mellitus with other circulatory complications E11.59 and BMI 45.0-49.9, adult Z68.42 [facility] [address] [place] [id number] [place] [address] Aug, [facility] [address] [address] Jul, [facility] [address] [address] Jul, Alcoholism F10.20 ; Parkinson's disease (tremor, stiffness, slow motion, unstable posture) G20 and COPD (chronic obstructive pulmonary disease) J44.9 [facility] [address] [address] June, BMI 45.0-49.9, adult Z68.42 and Simple chronic bronchitis J41.0 [facility] [address] [address] June, [facility] [address] [address] May, HTN (hypertension) I10 and Type 2 diabetes mellitus with other circulatory complications E11.59 [facility] [address] [id number] [place] [address] May, [facility] [address] [address] May, COPD exacerbation J44.1 [facility] [address] [address] Apr, Pure hypercholesterolemia E78.00 [facility] [address] [address] Apr, [facility] [address] [address] Mar, Cough R05 ; COPD with acute exacerbation J44.1 and BMI 45.0 -49.9, adult Z68.42 [facility] [address] [id number] [place] [address]- 365[address] Mar, [facility] [address] [id number] [place] [address]- 7847 Mar, [facility] [address] [address] Feb, [facility] [address] [address] Feb, BMI 45.0-49.9, adult Z68.42 and Acute non-recurrent maxillary sinusitis J01.00 [facility] [address] [id number] [place] [address]- [address] Feb, [facility] [address] [address] Feb, [facility] [address] [id number] [place] [address]- [address] Feb, GERD (gastroesophageal reflux disease) K21.9 [facility] [address] [address] [id number] [place] [address]- [address] Jan, Panlobular emphysema J43.1 ; Type 2 diabetes mellitus with hyperglycemia E11.65 and 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 [facility] [address] [id number] [place] [address] Jan, [facility] [id number] [place] [address] Dec, Chronic obstructive pulmonary disease with acute exacerbation J44.1 ; Cough R05 ; 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 ; Type 2 diabetes mellitus with other circulatory complications E11.59 ; 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 and BMI 45.0-49.9, adult Z68.42 [facility] [address] [address] [id number] [place] [address]- [address] Oct, [facility] [address] [address] Sep, [facility] [address] [address] Aug, [facility] [address] [address] May, [facility] [id number] [place] [address] 873180- 86[address] May, [facility] [id number] [place] [address] 60156- 7[address] Apr, [facility] [id number] [place] [address] 12583- 2844 Apr, [facility] [address] [id number] [address] Apr, [facility] [address] [address] Apr, 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 ; GERD (gastroesophageal reflux disease) K21.9 ; HTN ( hypertension) I10 ; Environmental allergies Z91.09 ; COPD (chronic obstructive pulmonary disease) J44.9 ; Sleep apnea G47.30 ; Hypothyroid E03.9 ; Neuropathy G62.9 ; Pure hypercholesterolemia E78.00 ; Atherosclerotic heart disease of [place] coronary artery without angina pectoris I25.10 ; Coronary atherosclerosis due to lipid rich plaque I25.83 and Edema, unspecified type R60.[address] [facility] [address] [place] [id number] Mar, COPD (chronic obstructive pulmonary disease) J44.9 ; Alcoholism F10.20 and 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 [facility] [address] [place] [id number] Mar, Open wound T14.8 [facility] [address] [address] Feb, 2017 Environmental allergies Z91.09 ; Open wound, lower leg, right, initial encounter S81.801A ; GERD (gastroesophageal reflux disease) K21.9 ; Hypothyroid E03.9 ; Hypercholesterolemia E78.0 ; Sleep apnea G47.30 ; Neuropathy G62.9 ; Edema, unspecified type R60.9 ; 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 ; Coronary artery disease involving [place] coronary artery of [place] heart without angina pectoris I25.10 ; 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 and COPD (chronic obstructive pulmonary disease) J44.9 [facility] [address] [address] [id number] [place] [address]- 355[address] Mar, [facility] [address] [address] Mar, [place] [address] [address] Mar, [facility] [address] [place] [id number] Mar, Alcoholism F10.20 ; 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 ; COPD (chronic obstructive pulmonary disease) J44.9 and Sleep apnea G47.30 [facility] [address] [id number] [place] [address]35- 4066 Mar, [facility] [address] [address] Mar, [facility] [address] [place] [id number] [place] [address] 53542- 0205 Feb, 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 ; GERD (gastroesophageal reflux disease) K21.9 ; Hypothyroid E03.9 ; Sleep apnea G47.30 ; Parkinson's disease (tremor, stiffness , slow motion, unstable posture) G20 ; CAD (coronary artery disease) I25.10 ; Edema, unspecified type R60.9 ; COPD (chronic obstructive pulmonary disease) J44.9 and Neuropathy G62.9 [facility] [address] [address] Jan, HTN (hypertension) I10 [facility] [address] [address] [id number] [place] [address]- [address] Jan, COPD (chronic obstructive pulmonary disease) J44.9 ; Hypothyroid E03.9 ; Environmental allergies Z91.09 ; 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 ; Hypercholesterolemia E78.0 ; Sleep apnea G47.30 ; CAD (coronary artery disease) I25.10 ; HTN (hypertension ) I10 ; GERD (gastroesophageal reflux disease) K21.9 ; Anemia D64.9 and Edema, unspecified type R60.9 [place] [address] [address] Dec, [facility] [address] [address]- [address] Dec, 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 ; GERD (gastroesophageal reflux disease) K21.9 ; HTN ( hypertension) I10 ; Hypothyroid E03.9 ; Environmental allergies Z91.09 ; Sleep apnea G47.30 ; CAD (coronary artery disease) I25.10 ; Hypercholesterolemia E78.0 and COPD (chronic obstructive pulmonary disease) J44.9 [facility] [address] [address] Oct, [facility] [address] [address] Aug, 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 ; GERD (gastroesophageal reflux disease) K21.9 ; Hypothyroid E03.9 ; Environmental allergies Z91.09 ; CAD (coronary artery disease) I25.10 ; Hypercholesterolemia E78.0 ; COPD (chronic obstructive pulmonary disease) J44.9 and Sleep apnea G47.30 [facility] [address] [address] Jul, COPD (chronic obstructive pulmonary disease) J44.9 [facility] [address] [address] June, [facility] [address] [address] May, [facility] [address] [id number] [place] [address]- [address] Apr, COPD (chronic obstructive pulmonary disease) J44.9 ; Sleep apnea G47.30 ; HTN (hypertension) I10 ; Hypothyroid E03.9 ; Environmental allergies Z91.09 ; CAD (coronary artery disease) I25.10 ; Hypercholesterolemia E78.0 and 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 [facility] [address], [place] [address] Apr, [facility] [address] [place] [id number] [place] [address] 40180- 0457 Mar, [facility] [address] [address] [id number] [place] [address] 78957- 5184 Mar, [facility] [address] [address] [address] Feb, [facility] [address], [place] [address] Feb, 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 ; Hypothyroid E03.9 ; HTN (hypertension) I10 ; COPD ( chronic obstructive pulmonary disease) J44.9 ; Sleep apnea G47.30 ; Hypercholesterolemia E78.0 ; Environmental allergies Z91.09 ; Diarrhea R19.7 and GERD (gastroesophageal reflux disease) K21.9 [facility] [address], [place] [address] Feb, [facility] [address] [place] [address] Jan, [facility] [address] [id number] [address] Jan, [facility] [address], [place] [address] Jan, [facility] [address] [facility] [id number] [address] 15 Jan, 2015 Anemia D64.9 [place] [address] [facility] [id number] [address] 14 Jan, 2015 [place] [address] [facility] [id number], [place] [address] 10 Jan, 2015 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 ; Hypothyroid E03.9 ; HTN (hypertension) I10 ; COPD ( chronic obstructive pulmonary disease) J44.9 ; Sleep apnea G47.30 ; Hypercholesterolemia E78.0 ; CAD (coronary artery disease) I25.10 and Environmental allergies Z91.09 IMMUNIZATIONS No Known Immunizations SOCIAL HISTORY Never Assessed REASON FOR VISIT Hospital Follow up , MICRO, A1C, PHQ2, AUDIT-C PLAN OF CARE Activity Details Follow Up 4 Weeks Reason:dm2 VITAL SIGNS Height 72.0 in 2017-05-25 Weight 343 lbs 2017-05-25 Heart Rate 84 bpm 2017-05-25 Respiratory Rate 22 2017-05-25 BMI 46.51 kg/m2 2017-05-25 Blood pressure systolic 128 mmHg 2017-05-25 Blood pressure diastolic 78 mmHg 2017-05-25 MEDICATIONS Medication Instructions Dosage Frequency Start Date End Date Duration Status Augmentin 875-125 MG Orally every 12 hrs 1 tablet 12h Active Spiriva HandiHaler 18 MCG INHALE CONTENTS OF ONE CAPSULE BY MOUTH ONCE DAILY (TWO INHALATIONS PER ONE CAPSULE) 30 Active Levothyroxine Sodium 150 MCG Orally Once a day Take 2 tablets 24h Active Fish Oil 8h Active Loratadine 10 MG Orally Once a day 1 tablet 24h Active Nitrostat 0.4 MG Active Albuterol Sulfate (2.5 MG/3ML) 0.083% Inhalation every 4 hours prn 3 ml 15 Active Sarah Allergy 180 MG Orally Once a day 1 tablet as needed 24h Not-Taking Advair Diskus 250-50 MCG/DOSE INHALE ONE PUFF BY MOUTH TWICE DAILY 30 Active Atorvastatin Calcium 40 MG Orally Once a day 1 tablet 24h 30 Active Oxygen 3 L by inhalation route continious 1 puff Apr, Active Aspirin 81 MG Orally Once a day 1 tablet 24h Active Bumex 2 MG Orally Once a day 1 tablet 24h 30 Active Amlodipine Besylate 10 MG Orally Once a day 1 tablet 24h Active Omeprazole 40 MG TAKE ONE CAPSULE BY MOUTH ONCE DAILY 30 Active Guaifenesin 200 MG Orally every 4 hrs 1 tablet as needed 4h Active Potassium 99 MG Orally Once a day 1 tablet 24h Active Hydrochlorothiazide 25 MG TAKE ONE TABLET BY MOUTH ONCE DAILY 30 Active NovoLog Flexpen 100 UNIT/ML INJECT 50 UNITS SUBCUTANEOUSLY THREE TIMES DAILY 30 Active Levemir FlexTouch 100 UNIT/ML Subcutaneous 2 times a day 50 units 12h 30 Active Docusate Sodium 250 MG Orally twice a day prn constipation 1 capsule as needed Active Hydrocodone-Acetaminophen 7.5-325 MG Orally 3 times a day 1 tablet as needed 8h Mar, 15 days Not-Taking Metoprolol Succinate 100 by oral route Once a day (total of 150 mg) 1.5 tabs Active Metformin HCl 1000 MG Orally Twice a day 1 tablet with meals 12h 30 Active Acetaminophen 325 MG Orally every 4 hrs prn pain 1 capsule as needed Active Plavix 75 MG Orally Once a day 1 tablet 24h Active Multivitamin Adult - Active RESULTS No Results PROCEDURES Procedure Date Ordered Result Body Site GLYCATED HEMOGLOBIN TEST May 25, 2017 MICROALBUMIN, QUANTITATIVE May 25, 2017 ASSAY OF URINE CREATININE May 25, 2017 INSTRUCTIONS MEDICATIONS ADMINISTERED No Known Medications [...] History Double pneumonia 07/2015 Hospitalization History [facility] allergic reaction 03/2016 Hospitalization History [facility] spent 2 weeks 03/2016 Hospitalization History [facility]- Pneumonia, COPD with Acute Exacerbation 05/19/2017
--- OUTSIDE RECORDS SUMMARY | 2017-11-01 06:54 | XMS REPORT ---
Author Author ROCKY MORRIS Organization [facility] Address [address] [place] [address] Care Team Providers Care Knife Machine Operator Name Role Phone ROCKY MORRIS Unavailable PROBLEMS Type Condition ICD9-CM Code MVZ54-CV Code Onset Dates Condition Status SNOMED Code Problem Coronary atherosclerosis due to lipid rich plaque I25.83 Active 098126680603683 Problem Panlobular emphysema J43.1 Active 4862123 Problem Atherosclerotic heart disease of wiyot coronary artery without angina pectoris I25.10 Active 301326036341225 Problem Simple chronic bronchitis J41.0 Active 50734130 Problem Pure hypercholesterolemia E78.00 Active 163524996 Problem COPD with acute exacerbation J44.1 Active 147763790 Problem emt intermediate 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 Z79.4 Active 611765339 Problem Type 2 diabetes mellitus with hyperglycemia E11.65 Active 364122888 Problem 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 Active 333345795860 Problem Type 2 diabetes mellitus with other circulatory complications E11.59 Active 58314902 Problem HTN (hypertension) I10 Active 67702892 Problem CAD (coronary artery disease) I25.10 Active 83726763 Problem Hypothyroid E03.9 Active 54491696 Problem COPD (chronic obstructive pulmonary disease) J44.9 Active 02036086 Problem Environmental allergies Z91.09 Active 142297865 Problem Neuropathy G62.9 Active 003398232 Problem 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 75245726697876 Problem 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 Active 41676074891676 Problem Sleep apnea G47.30 Active 95520863 Problem Edema, unspecified type R60.9 Active 969434895 ALLERGIES Substance Reaction Event Type Date Status Gabapentin anaphylaxis Drug Allergy June, Active Cozaar anaphylaxis Drug Allergy June, Active Benazepril HCl anaphylaxis Drug Allergy June, Active ENCOUNTERS Encounter Location Date Diagnosis [facility] [address] [facility] [id number] [address] Aug, COPD (chronic obstructive pulmonary disease) J44.9 ; Hypothyroid E03.9 ; HTN (hypertension) I10 ; Type 2 diabetes mellitus with other circulatory complications E11.59 and BMI 45.0-49.9, adult Z68.42 [facility] [id number] [place] [address] Aug, [facility] [address] [address] Jul, [facility] [address] [address] Jul, Alcoholism F10.20 ; Parkinson's disease (tremor, stiffness, slow motion, unstable posture) G20 and COPD (chronic obstructive pulmonary disease) J44.9 [facility] [address] [address] June, BMI 45.0-49.9, adult Z68.42 and Simple chronic bronchitis J41.0 [facility] [address] [address] June, [facility] [address] [address] May, HTN (hypertension) I10 and Type 2 diabetes mellitus with other circulatory complications E11.59 [facility] [id number] [place] [address] May, [facility] [address] [address] May, COPD exacerbation J44.1 [facility] [address] [address] Apr, Pure hypercholesterolemia E78.00 [facility] [address] [address] Apr, [facility] [address] [address] Mar, Cough R05 ; COPD with acute exacerbation J44.1 and BMI 45.0 -49.9, adult Z68.42 [facility] [id number] [place] [address] Mar, [facility] [id number] [place] [address]24 Mar, [facility] [address] [address] Feb, [facility] [address] [address] Feb, BMI 45.0-49.9, adult Z68.42 and Acute non-recurrent maxillary sinusitis J01.00 [facility] [id number] [place] [address] 6[address]43- [address] Feb, [facility] [address] [address] Feb, [facility] [id number] [place] [address] Feb, GERD (gastroesophageal reflux disease) K21.9 [facility] [id number] [place] [address] 6[address]26- [address]69 Jan, Panlobular emphysema J43.1 ; Type 2 diabetes mellitus with hyperglycemia E11.65 and emt intermediate 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 Z79.4 [facility] [id number] [place] [address] 14783[address] 12[address] Jan, [facility] [id number] [place] [address] Dec, Chronic obstructive pulmonary disease with acute exacerbation J44.1 ; Cough R05 ; 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 ; Type 2 diabetes mellitus with other circulatory complications E11.59 ; emt intermediate 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 Z79.4 and BMI 45.0-49.9, adult Z68.42 [facility] [id number] [place] [address]74- [address] Oct, [facility] [address] [address] Sep, [facility] [address], [place] [address] Aug, [facility] [address], [place] [address] May, [facility] [id number] [place] [address] 449952- 9367 May, [facility] [address] [place] [address] 63232- 0[address] Apr, [facility] [id number] [place] [address] 90041- 2311 Apr, [facility] [address] [id number] [address] Apr, [facility] [address] [address] Apr, 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 ; GERD (gastroesophageal reflux disease) K21.9 ; HTN ( hypertension) I10 ; Environmental allergies Z91.09 ; COPD (chronic obstructive pulmonary disease) J44.9 ; Sleep apnea G47.30 ; Hypothyroid E03.9 ; Neuropathy G62.9 ; Pure hypercholesterolemia E78.00 ; Atherosclerotic heart disease of wiyot coronary artery without angina pectoris I25.10 ; Coronary atherosclerosis due to lipid rich plaque I25.83 and Edema, unspecified type R60.9 [facility] [address] [place] [id number] Mar, COPD (chronic obstructive pulmonary disease) J44.9 ; Alcoholism F10.20 and 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 [facility] [address] [place] [id number] Mar, Open wound T14.8 [facility] [address] [address] Feb, 2017 Environmental allergies Z91.09 ; Open wound, lower leg, right, initial encounter S81.801A ; GERD (gastroesophageal reflux disease) K21.9 ; Hypothyroid E03.9 ; Hypercholesterolemia E78.0 ; Sleep apnea G47.30 ; Neuropathy G62.9 ; Edema, unspecified type R60.9 ; 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 ; Coronary artery disease involving wiyot coronary artery of wiyot heart without angina pectoris I25.10 ; 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 and COPD (chronic obstructive pulmonary disease) J44.9 [facility] [id number] [place] [address]- [address] Mar, [facility] [address] [address] Mar, [facility] [address] [address] Mar, [facility] [address] [place] [id number] Mar, Alcoholism F10.20 ; 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 ; COPD (chronic obstructive pulmonary disease) J44.9 and Sleep apnea G47.30 [facility] [id number] [place] [address] 59[address] Mar, [facility] [address] [address] Mar, [facility] [id number] [place] [address]16- 0727 Feb, 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 ; GERD (gastroesophageal reflux disease) K21.9 ; Hypothyroid E03.9 ; Sleep apnea G47.30 ; Parkinson's disease (tremor, stiffness , slow motion, unstable posture) G20 ; CAD (coronary artery disease) I25.10 ; Edema, unspecified type R60.9 ; COPD (chronic obstructive pulmonary disease) J44.9 and Neuropathy G62.9 [facility] [address] [address] Jan, HTN (hypertension) I10 [facility] [id number] [place] [address]- [address] Jan, COPD (chronic obstructive pulmonary disease) J44.9 ; Hypothyroid E03.9 ; Environmental allergies Z91.09 ; 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 ; Hypercholesterolemia E78.0 ; Sleep apnea G47.30 ; CAD (coronary artery disease) I25.10 ; HTN (hypertension ) I10 ; GERD (gastroesophageal reflux disease) K21.9 ; Anemia D64.9 and Edema, unspecified type R60.9 [facility] [address] [address] Dec, [facility] [address] [address] Dec, 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 ; GERD (gastroesophageal reflux disease) K21.9 ; HTN ( hypertension) I10 ; Hypothyroid E03.9 ; Environmental allergies Z91.09 ; Sleep apnea G47.30 ; CAD (coronary artery disease) I25.10 ; Hypercholesterolemia E78.0 and COPD (chronic obstructive pulmonary disease) J44.9 [facility] [address] [address] Oct, [facility] [address] [address] Aug, 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 ; GERD (gastroesophageal reflux disease) K21.9 ; Hypothyroid E03.9 ; Environmental allergies Z91.09 ; CAD (coronary artery disease) I25.10 ; Hypercholesterolemia E78.0 ; COPD (chronic obstructive pulmonary disease) J44.9 and Sleep apnea G47.30 [facility] [address] [address] Jul, COPD (chronic obstructive pulmonary disease) J44.9 [facility] [address] [address] June, [facility] [address] [address] May, [facility] [id number] [place] [address] 760[address]- [address] Apr, COPD (chronic obstructive pulmonary disease) J44.9 ; Sleep apnea G47.30 ; HTN (hypertension) I10 ; Hypothyroid E03.9 ; Environmental allergies Z91.09 ; CAD (coronary artery disease) I25.10 ; Hypercholesterolemia E78.0 and 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 [facility] [address], [place] [address] Apr, [facility] [id number] [place] [address]- 3810 Mar, [facility] [id number] [place] [address] 92744- 8459 Mar, [facility] [id number] [address] Feb, [facility] [address], [place] [address] Feb, 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 ; Hypothyroid E03.9 ; HTN (hypertension) I10 ; COPD ( chronic obstructive pulmonary disease) J44.9 ; Sleep apnea G47.30 ; Hypercholesterolemia E78.0 ; Environmental allergies Z91.09 ; Diarrhea R19.7 and GERD (gastroesophageal reflux disease) K21.9 [facility] [address], [place] [address] Feb, [facility] [address], [place] [address] Jan, [facility] [id number] [address] Jan, [facility] [address], [place] [address] Jan, [facility] [address] [facility] [id number] [address] 15 Jan, 2015 Anemia D64.9 [facility] [address] [facility] [id number] [address] 14 Jan, 2015 [place] [address] [facility] [id number], [place] [address] 10 Jan, 2015 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 PLAN OF CARE VITAL SIGNS Height 72.0 in 2017-06-29 Weight 344.5 lbs 2017-06-29 Temperature 98.2 degrees Fahrenheit 2017-06-29 Heart Rate 64 bpm 2017-06-29 Respiratory Rate 24 2017-06-29 Oximetry w/ oxygen:97 % 2017-06-29 BMI 46.72 kg/m2 2017-06-29 Blood pressure systolic 132 mmHg 2017-06-29 Blood pressure diastolic 74 mmHg 2017-06-29 MEDICATIONS Medication Instructions Dosage Frequency Start Date End Date Duration Status Levemir FlexTouch 100 UNIT/ML Subcutaneous 2 times a day 50 units 12h 30 Active Potassium 99 MG Orally Once a day 1 tablet 24h Active Sarah Allergy 180 MG Orally Once a day 1 tablet as needed 24h Active Metoprolol Succinate 100 by oral route Once a day (total of 150 mg) 1.5 tabs Active Augmentin 875-125 MG Orally every 12 hrs 1 tablet 12h Active PredniSONE 20 mg Orally Once a day 2 tablets 24h June, June, 05 days Active NovoLog Flexpen 100 UNIT/ML INJECT 50 UNITS SUBCUTANEOUSLY THREE TIMES DAILY 30 Active Guaifenesin 200 MG Orally every 4 hrs 1 tablet as needed 4h Active Spiriva HandiHaler 18 MCG INHALE CONTENTS OF ONE CAPSULE BY MOUTH ONCE DAILY (TWO INHALATIONS PER ONE CAPSULE) 30 Active Albuterol Sulfate (2.5 MG/3ML) 0.083% Inhalation every 4 hours prn 3 ml Active Fish Oil 8h Active Omeprazole 40 MG TAKE ONE CAPSULE BY MOUTH ONCE DAILY 30 Active Hydrocodone-Acetaminophen 7.5-325 MG Orally 3 times a day 1 tablet as needed 8h June, 15 days Active Multivitamin Adult - Active Aspirin 81 MG Orally Once a day 1 tablet 24h Active Levothyroxine Sodium 150 MCG Orally Once a day Take 2 tablets 24h Active Bumex 2 MG Orally Once a day 1 tablet 24h 30 Active Metformin HCl 1000 MG Orally Twice a day 1 tablet with meals 12h 30 Active Loratadine 10 MG Orally Once a day 1 tablet 24h Active Acetaminophen 325 MG Orally every 4 hrs prn pain 1 capsule as needed Active Hydrochlorothiazide 25 MG TAKE ONE TABLET BY MOUTH ONCE DAILY 30 Active Advair Diskus 250-50 MCG/DOSE INHALE ONE PUFF BY MOUTH TWICE DAILY 30 Active Atorvastatin Calcium 40 MG Orally Once a day 1 tablet 24h 30 Active Oxygen 3 L by inhalation route continious 1 puff Apr, Active Plavix 75 MG Orally Once a day 1 tablet 24h Active Amlodipine Besylate 10 MG Orally Once a day 1 tablet 24h Active Docusate Sodium 250 MG Orally twice a day prn constipation 1 capsule as needed Active PredniSONE 20 MG Orally Once a day 1 tablet 24h June, Jul, 30 day(s) Active Nitrostat 0.4 MG Active Levaquin 500 MG Orally Once a day 1 tablet 24h June, June, 10 day(s) Active RESULTS No Results PROCEDURES Procedure Date Ordered Result Body Site SOLUMEDROL (UP TO 125 MG) June 29, 2017 THER/PROPH/DIAG INJ, SC/IM June 29, 2017 INSTRUCTIONS MEDICATIONS ADMINISTERED No Known Medications [...] History Double pneumonia 07/2015 Hospitalization History [facility] allergic reaction 03/2016 Hospitalization History [facility] spent 2 weeks 03/2016 Hospitalization History [facility]- Pneumonia, COPD with Acute Exacerbation 05/19/2017
--- OUTSIDE RECORDS SUMMARY | 2017-11-01 06:55 | XMS REPORT ---
Author Author ROCKY MORRIS Organization [facility] Address [address] [place] [address] Care Team Providers Care Junior Designer Name Role Phone ROCKY MORRIS Unavailable PROBLEMS Type Condition ICD9-CM Code [id number] Code Onset Dates Condition Status SNOMED Code Problem Coronary atherosclerosis due to lipid rich plaque I25.83 Active 858861700391090 Problem Panlobular emphysema J43.1 Active 8951910 Problem Atherosclerotic heart disease of [place] coronary artery without angina pectoris I25.10 Active [id number] Problem Simple chronic bronchitis J41.0 Active 79352147 Problem Pure hypercholesterolemia E78.00 Active 183527070 Problem COPD with acute exacerbation J44.1 Active 993166753 Problem termination clerk 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 Z79.4 Active 251248541 Problem Type 2 diabetes mellitus with hyperglycemia E11.65 Active 575758026 Problem 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 Active 866860196129 Problem Type 2 diabetes mellitus with other circulatory complications E11.59 Active 97153830 Problem HTN (hypertension) I10 Active 35668337 Problem CAD (coronary artery disease) I25.10 Active 22826693 Problem Hypothyroid E03.9 Active 94151592 Problem COPD (chronic obstructive pulmonary disease) J44.9 Active 12113602 Problem Environmental allergies Z91.09 Active 666130958 Problem Neuropathy G62.9 Active 645261095 Problem 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 60721845747784 Problem 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 Active 04698005477140 Problem Sleep apnea G47.30 Active 48357846 Problem Edema, unspecified type R60.9 Active 937864090 ALLERGIES No Information ENCOUNTERS Encounter Location Date Diagnosis [facility] [address] [facility] [id number] [address] Aug, [facility] [id number] [address] Aug, [facility] [id number] [place] [address] Jul, [facility] [address] [address] Jul, Alcoholism F10.20 ; Parkinson's disease (tremor, stiffness, slow motion, unstable posture) G20 and COPD (chronic obstructive pulmonary disease) J44.9 [facility] [address] [address] June, BMI 45.0-49.9, adult Z68.42 and Simple chronic bronchitis J41.0 [place] [address] [address] June, [place] [address] [address] May, HTN (hypertension) I10 and Type 2 diabetes mellitus with other circulatory complications E11.59 [place] [facility] [id number] [place] [address]- [address] May, [place] [address] [address] May, COPD exacerbation J44.1 [place] [address] [address] Apr, Pure hypercholesterolemia E78.00 [place] [id number] [place] [address]058- [address] Apr, [facility] [id number] [place] [address] 17 Mar, 2017 Cough R05 ; COPD with acute exacerbation J44.1 and BMI 45.0 -49.9, adult Z68.42 [facility] [id number] [place] [address]14- [address] 13 Mar, 2017 [facility] [address] [address] Mar, [facility] [address], [place] [address] Feb, [facility] [id number] [place] [address]54- [address] Feb, BMI 45.0-49.9, adult Z68.42 and Acute non-recurrent maxillary sinusitis J01.00 [facility] [id number] [place] [address] 85816- 6978 Feb, [facility] [id number] [place] [address] 6[address]25- 0583 Feb, [facility] [id number] [place] [address] 04368- 1424 Feb, GERD (gastroesophageal reflux disease) K21.9 [place] [id number] [place] [address] 34684- 7791 Jan, Panlobular emphysema J43.1 ; Type 2 diabetes mellitus with hyperglycemia E11.65 and group home 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 Z79.4 [facility] [id number] [place] [address]2572- [address]76 Jan, [facility] [address], [place] [address] Dec, Chronic obstructive pulmonary disease with acute exacerbation J44.1 ; Cough R05 ; 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 ; Type 2 diabetes mellitus with other circulatory complications E11.59 ; group home 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 Z79.4 and BMI 45.0-49.9, adult Z68.42 [facility] [address], [place] [address] Oct, [facility] [id number] [place] [address] 30165- 5707 Sep, [facility] [id number] [place] [address] 33090- 34[address] Aug, [facility] [id number] [address] May, [facility] [address], [place] [address] May, [facility] [address], [place] [address] Apr, [facility] [address], [place] [address] Apr, [facility] [id number] [place] [address] 50014- 8720 Apr, [facility] [id number] [place] [address] 83309- 0704 Apr, 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 ; GERD (gastroesophageal reflux disease) K21.9 ; HTN ( hypertension) I10 ; Environmental allergies Z91.09 ; COPD (chronic obstructive pulmonary disease) J44.9 ; Sleep apnea G47.30 ; Hypothyroid E03.9 ; Neuropathy G62.9 ; Pure hypercholesterolemia E78.00 ; Atherosclerotic heart disease of [place] coronary artery without angina pectoris I25.10 ; Coronary atherosclerosis due to lipid rich plaque I25.83 and Edema, unspecified type R60.9 [facility] [address] [place] [address] [id number] Mar, COPD (chronic obstructive pulmonary disease) J44.9 ; Alcoholism F10.20 and 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 [facility] [address] [place] [address] [id number] Mar, Open wound T14.8 [facility] [id number] [address] Mar, Environmental allergies Z91.09 ; Open wound, lower leg, right, initial encounter S81.801A ; GERD (gastroesophageal reflux disease) K21.9 ; Hypothyroid E03.9 ; Hypercholesterolemia E78.0 ; Sleep apnea G47.30 ; Neuropathy G62.9 ; Edema, unspecified type R60.9 ; 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 ; Coronary artery disease involving [place] coronary artery of [place] heart without angina pectoris I25.10 ; 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 and COPD (chronic obstructive pulmonary disease) J44.9 [facility] [id number] [place] [address]24- 1757 Mar, [place] [id number] [place] [address] 61366- 04[address] Mar, [place] [id number] [place] [address]23- [address] Mar, [facility] [address] [id number] Mar, Alcoholism F10.20 ; 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 ; COPD (chronic obstructive pulmonary disease) J44.9 and Sleep apnea G47.30 [place] [id number] [place] [address] 77605- [address] Mar, [place] [id number] [place] [address]01- 5[address] Mar, [place] [id number] [place] [address] 14120- 1396 Feb, 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 ; GERD (gastroesophageal reflux disease) K21.9 ; Hypothyroid E03.9 ; Sleep apnea G47.30 ; Parkinson's disease (tremor, stiffness , slow motion, unstable posture) G20 ; CAD (coronary artery disease) I25.10 ; Edema, unspecified type R60.9 ; COPD (chronic obstructive pulmonary disease) J44.9 and Neuropathy G62.9 [place] [id number] [place] [address] 9[address]39- [address] Jan, HTN (hypertension) I10 [place] [id number] [place] [address] 70217- 4593 Jan, COPD (chronic obstructive pulmonary disease) J44.9 ; Hypothyroid E03.9 ; Environmental allergies Z91.09 ; 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 ; Hypercholesterolemia E78.0 ; Sleep apnea G47.30 ; CAD (coronary artery disease) I25.10 ; HTN (hypertension ) I10 ; GERD (gastroesophageal reflux disease) K21.9 ; Anemia D64.9 and Edema, unspecified type R60.9 [place] [id number] [place] [address] 80050- 1606 Dec, [address] [address] Dec, 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 ; GERD (gastroesophageal reflux disease) K21.9 ; HTN ( hypertension) I10 ; Hypothyroid E03.9 ; Environmental allergies Z91.09 ; Sleep apnea G47.30 ; CAD (coronary artery disease) I25.10 ; Hypercholesterolemia E78.0 and COPD (chronic obstructive pulmonary disease) J44.9 [place] [id number] [place] [address] 00361- 69[address] Oct, [place] [id number] [place] [address] 68476- 9832 Aug, 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 ; GERD (gastroesophageal reflux disease) K21.9 ; Hypothyroid E03.9 ; Environmental allergies Z91.09 ; CAD (coronary artery disease) I25.10 ; Hypercholesterolemia E78.0 ; COPD (chronic obstructive pulmonary disease) J44.9 and Sleep apnea G47.30 [place] [id number] [place] [address] 84935- 9274 Jul, COPD (chronic obstructive pulmonary disease) J44.9 [place] [id number] [place] [address] 96850- 4215 June, [place] [id number] [place] [address] 80471- 8415 May, [place] [id number] [place] [address] 85738- 3947 Apr, COPD (chronic obstructive pulmonary disease) J44.9 ; Sleep apnea G47.30 ; HTN (hypertension) I10 ; Hypothyroid E03.9 ; Environmental allergies Z91.09 ; CAD (coronary artery disease) I25.10 ; Hypercholesterolemia E78.0 and 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 [facility] [id number] [place] [address] 23080- 5929 Apr, [facility] [id number] [place] [address] 48609- 5957 Mar, [facility] [id number] [place] [address] 85394- 3399 Mar, [facility] [id number] [place] [address] 70411- 8249 Feb, [facility] [id number] [place] [address] 61774- 9627 Feb, 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 ; Hypothyroid E03.9 ; HTN (hypertension) I10 ; COPD ( chronic obstructive pulmonary disease) J44.9 ; Sleep apnea G47.30 ; Hypercholesterolemia E78.0 ; Environmental allergies Z91.09 ; Diarrhea R19.7 and GERD (gastroesophageal reflux disease) K21.9 [facility] [id number] [place] [address] 31184- 6906 Feb, [facility] [id number] [place] [address] 37973- 8205 Jan, [facility] [id number] [place] [address] 37633- 5398 Jan, [facility] [id number] [place] [address] 09256- 6505 Jan, [facility] [id number] [place] [address] 13658- 0744 15 Jan, 2015 Anemia D64.9 [facility] [id number] [place] [address] 84292- 6992 14 Jan, 2015 [facility] [id number] [place] [address] 60824- 1780 10 Jan, 2015 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 ; Hypothyroid E03.9 ; HTN (hypertension) I10 ; COPD ( chronic obstructive pulmonary disease) J44.9 ; Sleep apnea G47.30 ; Hypercholesterolemia E78.0 ; CAD (coronary artery disease) I25.10 and Environmental allergies Z91.09 IMMUNIZATIONS No Known Immunizations SOCIAL HISTORY Never Assessed REASON FOR VISIT med refills PLAN OF CARE VITAL SIGNS MEDICATIONS Medication Instructions Dosage Frequency Start Date End Date Duration Status Atorvastatin Calcium 40 MG TAKE ONE TABLET BY MOUTH ONCE DAILY 30 Active RESULTS [...] History Double pneumonia 07/2015 Hospitalization History [facility] allergic reaction 03/2016 Hospitalization History [facility] spent 2 weeks 03/2016 Hospitalization History [facility]- Pneumonia, COPD with Acute Exacerbation 05/19/2017
--- OUTSIDE RECORDS SUMMARY | 2017-11-01 06:55 | XMS REPORT ---
Author Author ROCKY MORRIS Organization [facility] Address [address] [place] [address] Care Team Providers Care Rehabilitation Attendant Name Role Phone ROCKY MORRIS Unavailable PROBLEMS Type Condition ICD9-CM Code [id number] Code Onset Dates Condition Status SNOMED Code Problem Coronary atherosclerosis due to lipid rich plaque I25.83 Active 262150577110079 Problem Panlobular emphysema J43.1 Active 1992386 Problem Atherosclerotic heart disease of jackson coronary artery without angina pectoris I25.10 Active 532289564282585 Problem Simple chronic bronchitis J41.0 Active 96827411 Problem Pure hypercholesterolemia E78.00 Active 233391766 Problem COPD with acute exacerbation J44.1 Active 556646951 Problem 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 Active 643643675 Problem Type 2 diabetes mellitus with hyperglycemia E11.65 Active 661631685 Problem 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 Active 202480399673 Problem Type 2 diabetes mellitus with other circulatory complications E11.59 Active 23906631 Problem HTN (hypertension) I10 Active 36485680 Problem CAD (coronary artery disease) I25.10 Active 66552766 Problem Hypothyroid E03.9 Active 39220768 Problem COPD (chronic obstructive pulmonary disease) J44.9 Active 62665000 Problem Environmental allergies Z91.09 Active 324643454 Problem Neuropathy G62.9 Active 810721120 Problem 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 55165463986575 Problem 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 Active 50296045418922 Problem Sleep apnea G47.30 Active 75820393 Problem Edema, unspecified type R60.9 Active 004461599 ALLERGIES Substance Reaction Event Type Date Status Gabapentin anaphylaxis Drug Allergy May, Active Cozaar anaphylaxis Drug Allergy May, Active Benazepril HCl anaphylaxis Drug Allergy May, Active ENCOUNTERS Encounter Location Date Diagnosis [facility] [address] [facility] [id number] [address] Aug, COPD (chronic obstructive pulmonary disease) J44.9 ; Hypothyroid E03.9 ; HTN (hypertension) I10 ; Type 2 diabetes mellitus with other circulatory complications E11.59 and BMI 45.0-49.9, adult Z68.42 [facility] [address] [place] [id number] [place] [address] Aug, [facility] [address] [address] Jul, [facility] [address] [address] Jul, Alcoholism F10.20 ; Parkinson's disease (tremor, stiffness, slow motion, unstable posture) G20 and COPD (chronic obstructive pulmonary disease) J44.9 [facility] [address] [address] June, BMI 45.0-49.9, adult Z68.42 and Simple chronic bronchitis J41.0 [facility] [address] [address] June, [facility] [address] [address] May, HTN (hypertension) I10 and Type 2 diabetes mellitus with other circulatory complications E11.59 [facility] [address] [place] [id number] [place] [address] May, [facility] [address] [address] May, COPD exacerbation J44.1 [place] [address] [address] Apr, Pure hypercholesterolemia E78.00 [place] [address] [address] Apr, [facility] [address] [address] Mar, Cough R05 ; COPD with acute exacerbation J44.1 and BMI 45.0 -49.9, adult Z68.42 [facility] [address] [place] [id number] [place] [address] 35[address] Mar, [facility] [address] [place] [id number] [place] [address]- [address] Mar, [facility] [address] [address] Feb, [facility] [address] [address] Feb, BMI 45.0-49.9, adult Z68.42 and Acute non-recurrent maxillary sinusitis J01.00 [facility] [address] [place] [id number] [place] [address] Feb, [facility] [place] [address] [address] Feb, [facility] [address] [place] [id number] [place] [address] Feb, GERD (gastroesophageal reflux disease) K21.9 [facility] [address] [place] [id number] [place] [address] Jan, Panlobular emphysema J43.1 ; Type 2 diabetes mellitus with hyperglycemia E11.65 and 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 [facility] [address] [place] [id number] [place] [address] Jan, [facility] [address] [id number] [place] [address] Dec, Chronic obstructive pulmonary disease with acute exacerbation J44.1 ; Cough R05 ; 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 ; Type 2 diabetes mellitus with other circulatory complications E11.59 ; 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 and BMI 45.0-49.9, adult Z68.42 [facility] [address] [place] [id number] [place] [address] Oct, [facility] [address] [address] Sep, [facility] [address] [address] Aug, [facility] [address] [address] May, [facility] [address] [id number] [place] [address] 8[address]295- [address] May, [facility] [id number] [place] [address]29- 49[address] Apr, [facility] [address] [id number] [place] [address]66- 2677 Apr, [facility] [address] [id number] [address] Apr, [facility] [address] [address] Apr, 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 ; GERD (gastroesophageal reflux disease) K21.9 ; HTN ( hypertension) I10 ; Environmental allergies Z91.09 ; COPD (chronic obstructive pulmonary disease) J44.9 ; Sleep apnea G47.30 ; Hypothyroid E03.9 ; Neuropathy G62.9 ; Pure hypercholesterolemia E78.00 ; Atherosclerotic heart disease of jackson coronary artery without angina pectoris I25.10 ; Coronary atherosclerosis due to lipid rich plaque I25.83 and Edema, unspecified type R60.[address] [facility] [address] [place] [id number] Mar, COPD (chronic obstructive pulmonary disease) J44.9 ; Alcoholism F10.20 and 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 [facility] [address] [place] [id number] Mar, Open wound T14.8 [facility] [address] [address] Feb, 2017 Environmental allergies Z91.09 ; Open wound, lower leg, right, initial encounter S81.801A ; GERD (gastroesophageal reflux disease) K21.9 ; Hypothyroid E03.9 ; Hypercholesterolemia E78.0 ; Sleep apnea G47.30 ; Neuropathy G62.9 ; Edema, unspecified type R60.9 ; 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 ; Coronary artery disease involving jackson coronary artery of jackson heart without angina pectoris I25.10 ; 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 and COPD (chronic obstructive pulmonary disease) J44.9 [facility] [place] [address] [place] [id number] [place] [address]- [address] Mar, [facility] [address] [address] Mar, [place] [address] [address] Mar, [facility] [address] [place] [id number] Mar, Alcoholism F10.20 ; 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 ; COPD (chronic obstructive pulmonary disease) J44.9 and Sleep apnea G47.30 [place] [address] [place] [id number] [place] [address]- [address] Mar, [place] [address] [address] Mar, [place] [address] [place] [id number] [place] [address]- 6[address] Feb, 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 ; GERD (gastroesophageal reflux disease) K21.9 ; Hypothyroid E03.9 ; Sleep apnea G47.30 ; Parkinson's disease (tremor, stiffness , slow motion, unstable posture) G20 ; CAD (coronary artery disease) I25.10 ; Edema, unspecified type R60.9 ; COPD (chronic obstructive pulmonary disease) J44.9 and Neuropathy G62.9 [place] [address] [address] Jan, HTN (hypertension) I10 [place] [address] [place] [id number] [place] [address] Jan, COPD (chronic obstructive pulmonary disease) J44.9 ; Hypothyroid E03.9 ; Environmental allergies Z91.09 ; 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 ; Hypercholesterolemia E78.0 ; Sleep apnea G47.30 ; CAD (coronary artery disease) I25.10 ; HTN (hypertension ) I10 ; GERD (gastroesophageal reflux disease) K21.9 ; Anemia D64.9 and Edema, unspecified type R60.9 [place] [address] [address]- [address] Dec, [place] [address] [address] Dec, 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 ; GERD (gastroesophageal reflux disease) K21.9 ; HTN ( hypertension) I10 ; Hypothyroid E03.9 ; Environmental allergies Z91.09 ; Sleep apnea G47.30 ; CAD (coronary artery disease) I25.10 ; Hypercholesterolemia E78.0 and COPD (chronic obstructive pulmonary disease) J44.9 [place] [address] [address] Oct, [place] [facility] [address] [address] Aug, 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 ; GERD (gastroesophageal reflux disease) K21.9 ; Hypothyroid E03.9 ; Environmental allergies Z91.09 ; CAD (coronary artery disease) I25.10 ; Hypercholesterolemia E78.0 ; COPD (chronic obstructive pulmonary disease) J44.9 and Sleep apnea G47.30 [facility] [address] [address] Jul, COPD (chronic obstructive pulmonary disease) J44.9 [place] [address] [address]- [address] June, [facility] [address] [address] May, [facility] [address] [place] [id number] [place] [address]- 285[address] Apr, COPD (chronic obstructive pulmonary disease) J44.9 ; Sleep apnea G47.30 ; HTN (hypertension) I10 ; Hypothyroid E03.9 ; Environmental allergies Z91.09 ; CAD (coronary artery disease) I25.10 ; Hypercholesterolemia E78.0 and 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 [facility] [address] [address] Apr, [facility] [address] [place] [id number] [place] [address]20- 9941 Mar, [facility] [address] [place] [id number] [place] [address]257- [address] Mar, [facility] [address] [id number] [address] Feb, [facility] [address] [address] Feb, 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 ; Hypothyroid E03.9 ; HTN (hypertension) I10 ; COPD ( chronic obstructive pulmonary disease) J44.9 ; Sleep apnea G47.30 ; Hypercholesterolemia E78.0 ; Environmental allergies Z91.09 ; Diarrhea R19.7 and GERD (gastroesophageal reflux disease) K21.9 [facility] [address] [address] Feb, [facility] [address] [address] Jan, [facility] [address] [id number] [address]- [address] Jan, [facility] [address] [address] Jan, [place] [address] [facility] [id number] [place] [address] 15 Jan, 2015 Anemia D64.9 [place] [address] [facility] [id number] [address] 14 Jan, 2015 [place] [address] [facility] [id number] [address] 10 Jan, 2015 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 ; Hypothyroid E03.9 ; HTN (hypertension) I10 ; COPD ( chronic obstructive pulmonary disease) J44.9 ; Sleep apnea G47.30 ; Hypercholesterolemia E78.0 ; CAD (coronary artery disease) I25.10 and Environmental allergies Z91.09 IMMUNIZATIONS Vaccine Route Administration Date Status SOLUMEDROL (UP TO 125 MG) IM Intramuscular May 19, 2017 Administered SOCIAL HISTORY Never Assessed REASON FOR VISIT Cold symptoms----DBennettRN PLAN OF CARE Activity Details Future/Pending Procedure NEBULIZER TREATMENT VITAL SIGNS Height 72.0 in 2017-05-19 Weight 350 lbs 2017-05-19 Temperature 100.6 degrees Fahrenheit 2017-05-19 Heart Rate 88 bpm 2017-05-19 Respiratory Rate 28 2017-05-19 Oximetry w/ oxygen at 3L/NC:84 % 2017-05-19 BMI 47.46 kg/m2 2017-05-19 Blood pressure systolic 118 mmHg 2017-05-19 Blood pressure diastolic 64 mmHg 2017-05-19 MEDICATIONS Medication Instructions Dosage Frequency Start Date End Date Duration Status Fish Oil Active Advair Diskus 250-50 MCG/DOSE INHALE ONE PUFF BY MOUTH TWICE DAILY 30 Active Spiriva HandiHaler 18 MCG INHALE CONTENTS OF ONE CAPSULE BY MOUTH ONCE DAILY (TWO INHALATIONS PER ONE CAPSULE) 30 Active Levemir FlexTouch 100 UNIT/ML Subcutaneous 2 times a day 50 units 12h 30 Active Guaifenesin 200 MG Orally every 4 hrs 1 tablet as needed 4h Active Amlodipine Besylate 10 MG Orally Once a day 1 tablet 24h Active Bumex 2 MG Orally Once a day 1 tablet 24h 30 Active Albuterol Sulfate (2.5 MG/3ML) 0.083% Inhalation every 4 hours prn 3 ml 15 Active Levothyroxine Sodium 150 MCG TAKE TWO TABLETS BY MOUTH ONCE DAILY (MUST HAVE APPOINTMENT FOR REFILL) 30 Active Nitrostat 0.4 MG Active Hydrocodone-Acetaminophen 7.5-325 MG Orally 3 times a day 1 tablet as needed 8h Mar, 15 days Active Levaquin 500 MG Orally Once a day 1 tablet 24h May, 16 May, 2017 10 day(s) Active PredniSONE 20 mg Orally Once a day 2 tablets 24h May, May, 05 days Active NovoLog Flexpen 100 UNIT/ML INJECT 50 UNITS SUBCUTANEOUSLY THREE TIMES DAILY 30 Active Metoprolol Tartrate 50 mg Orally Once a day 2 tabs 24h Active Atorvastatin Calcium 40 MG TAKE ONE TABLET BY MOUTH ONCE DAILY 30 Active Omeprazole 40 MG TAKE ONE CAPSULE BY MOUTH ONCE DAILY 30 Active Sarah Allergy 180 MG Orally Once a day 1 tablet as needed 24h Active Hydrochlorothiazide 25 MG TAKE ONE TABLET BY MOUTH ONCE DAILY 30 Active Metformin HCl 1000 MG Orally Twice a day 1 tablet with meals 12h 30 Active Atorvastatin Calcium 40 MG Orally Once a day 1 tablet 24h 30 Active Oxygen 3 L by inhalation route continious 1 puff Apr, Active Plavix 75 MG Orally Once a day 1 tablet 24h Active RESULTS No Results PROCEDURES Procedure Date Ordered Result Body Site NEB/MDI RX INITIAL May 19, 2017 SOLUMEDROL (UP TO 125 MG) May 19, 2017 THER/PROPH/DIAG INJ, SC/IM May 19, 2017 INSTRUCTIONS MEDICATIONS ADMINISTERED No Known Medications [...] History Double pneumonia 07/2015 Hospitalization History [facility] allergic reaction 03/2016 Hospitalization History [facility] spent 2 weeks 03/2016 Hospitalization History [facility]- Pneumonia, COPD with Acute Exacerbation 05/19/2017
--- OUTSIDE RECORDS SUMMARY | 2017-11-01 06:55 | XMS REPORT ---
Author Author JONI WAYNE [facility] Address [address] [place] [address] Care Team Providers Care Mincemeat Maker Name Role Phone WAYNEJONI Unavailable PROBLEMS Type Condition ICD9-CM Code CUQ99-XH Code Onset Dates Condition Status SNOMED Code Problem Coronary atherosclerosis due to lipid rich plaque I25.83 Active 741111304121360 Problem Panlobular emphysema J43.1 Active 8296766 Problem Atherosclerotic heart disease of [place] coronary artery without angina pectoris I25.10 Active 187546721119279 Problem Simple chronic bronchitis J41.0 Active 49008071 Problem Pure hypercholesterolemia E78.00 Active 488770436 Problem COPD with acute exacerbation J44.1 Active 386846513 Problem nursing home 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 Z79.4 Active 079479879 Problem Type 2 diabetes mellitus with hyperglycemia E11.65 Active 812892683 Problem 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 Active 788739953400 Problem Type 2 diabetes mellitus with other circulatory complications E11.59 Active 75885866 Problem HTN (hypertension) I10 Active 13287529 Problem CAD (coronary artery disease) I25.10 Active 13152196 Problem Hypothyroid E03.9 Active 88417908 Problem COPD (chronic obstructive pulmonary disease) J44.9 Active 39257556 Problem Environmental allergies Z91.09 Active 240092258 Problem Neuropathy G62.9 Active 093446641 Problem 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 24373021678215 Problem 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 Active 36342623171402 Problem Sleep apnea G47.30 Active 62075577 Problem Edema, unspecified type R60.9 Active 424672509 ALLERGIES No Information ENCOUNTERS Encounter Location Date Diagnosis [facility] [address] [facility] [id number] [address] Aug, COPD (chronic obstructive pulmonary disease) J44.9 ; Hypothyroid E03.9 ; HTN (hypertension) I10 ; Type 2 diabetes mellitus with other circulatory complications E11.59 and BMI 45.0-49.9, adult Z68.42 [place] [address] [address] Aug, [place] [address] [address] Jul, [place] [address] [address] Jul, Alcoholism F10.20 ; Parkinson's disease (tremor, stiffness, slow motion, unstable posture) G20 and COPD (chronic obstructive pulmonary disease) J44.9 [place] [address] [address] June, BMI 45.0-49.9, adult Z68.42 and Simple chronic bronchitis J41.[address] [address] June, [place] [address] [address] May, HTN (hypertension) I10 and Type 2 diabetes mellitus with other circulatory complications E11.59 [place] [address] [address] 10 May, 2017 [place] [address] [address] May, COPD exacerbation J44.1 [place] [address] [address] Apr, Pure hypercholesterolemia E78.00 [place] [address] [address] Apr, [facility] [address] [address] Mar, Cough R05 ; COPD with acute exacerbation J44.1 and BMI 45.0 -49.9, adult Z68.42 [place] [address] [place] [address]- 4[address] Mar, [facility] [address] [place] [id number] [place] [address] 228[address] Mar, [facility] [address] [place] [id number] [place] [address] 68027- [address] Feb, [place] [address] [address] Feb, BMI 45.0-49.9, adult Z68.42 and Acute non-recurrent maxillary sinusitis J01.00 [place] [address] [place] [id number] [place] [address] Feb, [place] [address] [place] [id number] [place] [address]40- 2146 Feb, [place] [address] [place] [id number] [place] [address]00- 28[address] Feb, GERD (gastroesophageal reflux disease) K21.9 [place] [address] [place] [id number] [place] [address]- 6[address] Jan, Panlobular emphysema J43.1 ; Type 2 diabetes mellitus with hyperglycemia E11.65 and nursing home 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 Z79.4 [place] [address] [place] [id number] [place] [address]25[address] Jan, [facility] [address] [place] [address] Dec, Chronic obstructive pulmonary disease with acute exacerbation J44.1 ; Cough R05 ; 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 ; Type 2 diabetes mellitus with other circulatory complications E11.59 ; 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 and BMI 45.0-49.9, adult Z68.42 [facility] [address] [place] [address] Oct, [facility] [address] [address] Sep, [facility] [address] [id number] [address] Aug, [facility] [address] [address] May, [facility] [address] [address] May, [facility] [address] [place] [id number] [place] [address] 996707- 90[address] Apr, [facility] [address] [place] [address] 39317- 2183 Apr, [facility] [address] [place] [id number] [place] [address] 39522- 6947 Apr, [facility] [address] [place] [address] 38678- 8[address] Apr, 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 ; GERD (gastroesophageal reflux disease) K21.9 ; HTN ( hypertension) I10 ; Environmental allergies Z91.09 ; COPD (chronic obstructive pulmonary disease) J44.9 ; Sleep apnea G47.30 ; Hypothyroid E03.9 ; Neuropathy G62.9 ; Pure hypercholesterolemia E78.00 ; Atherosclerotic heart disease of [place] coronary artery without angina pectoris I25.10 ; Coronary atherosclerosis due to lipid rich plaque I25.83 and Edema, unspecified type R60.[address] [facility] [address] [place] [id number] Mar, COPD (chronic obstructive pulmonary disease) J44.9 ; Alcoholism F10.20 and 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 [facility] [address] [place] [id number] Mar, Open wound T14.8 [facility] [address] [place] [address] 54686- 5[address] Mar, Environmental allergies Z91.09 ; Open wound, lower leg, right, initial encounter S81.801A ; GERD (gastroesophageal reflux disease) K21.9 ; Hypothyroid E03.9 ; Hypercholesterolemia E78.0 ; Sleep apnea G47.30 ; Neuropathy G62.9 ; Edema, unspecified type R60.9 ; 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 ; Coronary artery disease involving [place] coronary artery of [place] heart without angina pectoris I25.10 ; 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 and COPD (chronic obstructive pulmonary disease) J44.9 [address] [place] [address]- 3[address] Mar, [place] [address] [place] [id number] [place] [address] 35738- 64[address] Mar, [place] [id number] [place] [address]62- [address] Mar, [facility] [address] [place] [id number] Mar, Alcoholism F10.20 ; 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 ; COPD (chronic obstructive pulmonary disease) J44.9 and Sleep apnea G47.30 [place] [id number] [place] [address]796- [address] Mar, [place] [id number] [place] [address] 8[address]83- [address] Mar, [address] [place] [address] 46290- 9239 Feb, 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 ; GERD (gastroesophageal reflux disease) K21.9 ; Hypothyroid E03.9 ; Sleep apnea G47.30 ; Parkinson's disease (tremor, stiffness , slow motion, unstable posture) G20 ; CAD (coronary artery disease) I25.10 ; Edema, unspecified type R60.9 ; COPD (chronic obstructive pulmonary disease) J44.9 and Neuropathy G62.9 [address] [place] [address]21- 6702 Jan, HTN (hypertension) I10 [place] [id number] [place] [address] 18658- [address] Jan, COPD (chronic obstructive pulmonary disease) J44.9 ; Hypothyroid E03.9 ; Environmental allergies Z91.09 ; 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 ; Hypercholesterolemia E78.0 ; Sleep apnea G47.30 ; CAD (coronary artery disease) I25.10 ; HTN (hypertension ) I10 ; GERD (gastroesophageal reflux disease) K21.9 ; Anemia D64.9 and Edema, unspecified type R60.[address] [address] Dec, [address] [address] Dec, 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 ; GERD (gastroesophageal reflux disease) K21.9 ; HTN ( hypertension) I10 ; Hypothyroid E03.9 ; Environmental allergies Z91.09 ; Sleep apnea G47.30 ; CAD (coronary artery disease) I25.10 ; Hypercholesterolemia E78.0 and COPD (chronic obstructive pulmonary disease) J44.9 [place] [address] [place] [id number] [place] [address] Oct, [address] [address] Aug, 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 ; GERD (gastroesophageal reflux disease) K21.9 ; Hypothyroid E03.9 ; Environmental allergies Z91.09 ; CAD (coronary artery disease) I25.10 ; Hypercholesterolemia E78.0 ; COPD (chronic obstructive pulmonary disease) J44.9 and Sleep apnea G47.30 [place] [id number] [place] [address]- 116[address] Jul, COPD (chronic obstructive pulmonary disease) J44.[address] [address] June, [address] [address] May, [address] [place] [address] Apr, COPD (chronic obstructive pulmonary disease) J44.9 ; Sleep apnea G47.30 ; HTN (hypertension) I10 ; Hypothyroid E03.9 ; Environmental allergies Z91.09 ; CAD (coronary artery disease) I25.10 ; Hypercholesterolemia E78.0 and 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 [facility] [address] [place] [id number] [place] [address] 27918- 7437 Apr, [facility] [address] [place] [id number] [place] [address] 99366- 1094 Mar, [facility] [address] [place] [id number] [place] [address] 37[address]- 6186 Mar, [place] [address] [place] [id number] [place] [address] 17861- 7167 Feb, [place] [address] [place] [id number] [place] [address] 49806- 9156 Feb, 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 ; Hypothyroid E03.9 ; HTN (hypertension) I10 ; COPD ( chronic obstructive pulmonary disease) J44.9 ; Sleep apnea G47.30 ; Hypercholesterolemia E78.0 ; Environmental allergies Z91.09 ; Diarrhea R19.7 and GERD (gastroesophageal reflux disease) K21.9 [facility] [address] [address] Feb, [facility] [address] [place] [id number] [place] [address] 49488- 9054 Jan, [facility] [address] [place] [id number] [place] [address] 67650- 3873 Jan, [facility] [address] [place] [id number] [place] [address] 114335- 7073 Jan, [facility] [address] [address] Jan, Anemia D64.9 [facility] [address] [facility] [id number] [address] 14 Jan, 2015 [facility] [address] 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 ; Hypothyroid E03.9 ; HTN (hypertension) I10 ; COPD ( chronic obstructive pulmonary disease) J44.9 ; Sleep apnea G47.30 ; Hypercholesterolemia E78.0 ; CAD (coronary artery disease) I25.10 and Environmental allergies Z91.09 IMMUNIZATIONS No Known Immunizations SOCIAL HISTORY Never Assessed REASON FOR VISIT Med List Updated per [facility] d/c 05/21/17 PLAN OF CARE VITAL SIGNS MEDICATIONS Medication Instructions Dosage Frequency Start Date End Date Duration Status PredniSONE 20 mg Orally Once a day 1 tablet 24h May, May, Active Spiriva HandiHaler 18 MCG INHALE CONTENTS OF ONE CAPSULE BY MOUTH ONCE DAILY (TWO INHALATIONS PER ONE CAPSULE) 30 Active Aspirin 81 MG Orally Once a day 1 tablet 24h Active Omeprazole 40 MG TAKE ONE CAPSULE BY MOUTH ONCE DAILY 30 Active Docusate Sodium 250 MG Orally twice a day prn constipation 1 capsule as needed Active Advair Diskus 250-50 MCG/DOSE INHALE ONE PUFF BY MOUTH TWICE DAILY 30 Active Guaifenesin 200 MG Orally every 4 hrs 1 tablet as needed 4h Active Potassium 99 MG Orally Once a day 1 tablet 24h Active Oxygen 3 L by inhalation route continious 1 puff Apr, Active Albuterol Sulfate (2.5 MG/3ML) 0.083% Inhalation every 4 hours prn 3 ml 15 Active Nitrostat 0.4 MG Active Loratadine 10 MG Orally Once a day 1 tablet 24h Active Bumex 2 MG Orally Once a day 1 tablet 24h 30 Active Amlodipine Besylate 10 MG Orally Once a day 1 tablet 24h Active Atorvastatin Calcium 40 MG Orally Once a day 1 tablet 24h 30 Active Metformin HCl 1000 MG Orally Twice a day 1 tablet with meals 12h 30 Active Sarah Allergy 180 MG Orally Once a day 1 tablet as needed 24h Not-Taking Hydrochlorothiazide 25 MG TAKE ONE TABLET BY MOUTH ONCE DAILY 30 Active Plavix 75 MG Orally Once a day 1 tablet 24h Active Levemir FlexTouch 100 UNIT/ML Subcutaneous 2 times a day 50 units 12h 30 Active NovoLog Flexpen 100 UNIT/ML INJECT 50 UNITS SUBCUTANEOUSLY THREE TIMES DAILY 30 Active Hydrocodone-Acetaminophen 7.5-325 MG Orally 3 times a day 1 tablet as needed 8h Mar, 15 days Not-Taking Multivitamin Adult - Active Fish Oil 8h Active Acetaminophen 325 MG Orally every 4 hrs prn pain 1 capsule as needed Active Levothyroxine Sodium 150 MCG Orally Once a day Take 2 tablets 24h Active Augmentin 875-125 MG Orally every 12 hrs 1 tablet 12h Active Metoprolol Succinate 100 by oral route Once a day (total of 150 mg) 1.5 tabs Active RESULTS No Results PROCEDURES No Known [...] [facility] allergic reaction 03/2016 Hospitalization History [facility] spent 2 weeks 03/2016 Hospitalization History [facility]- Pneumonia, COPD with Acute Exacerbation 05/19/2017
--- OUTSIDE RECORDS SUMMARY | 2017-11-01 06:56 | XMS REPORT ---
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 Name Role Phone ROCKY MORRIS Unavailable PROBLEMS Type Condition ICD9-CM Code CZH22-MN Code Onset Dates Condition Status SNOMED Code Problem Coronary atherosclerosis due to lipid rich plaque I25.83 Active 542576424737952 Problem Panlobular emphysema J43.1 Active 2683836 Problem Atherosclerotic heart disease of tribe coronary artery without angina pectoris I25.10 Active 634520380382093 Problem Simple chronic bronchitis J41.0 Active 95900338 Problem Pure hypercholesterolemia E78.00 Active 051828360 Problem COPD with acute exacerbation J44.1 Active 576045283 Problem 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 Active 520954116 Problem Type 2 diabetes mellitus with hyperglycemia E11.65 Active 006355642 Problem 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 Active 810994956991 Problem Type 2 diabetes mellitus with other circulatory complications E11.59 Active 38758397 Problem HTN (hypertension) I10 Active 87224538 Problem CAD (coronary artery disease) I25.10 Active 72054301 Problem Hypothyroid E03.9 Active 41176401 Problem COPD (chronic obstructive pulmonary disease) J44.9 Active 60368405 Problem Environmental allergies Z91.09 Active 955540271 Problem Neuropathy G62.9 Active 482045814 Problem 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 13952192511103 Problem 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 Active 71723851269557 Problem Sleep apnea G47.30 Active 11939126 Problem Edema, unspecified type R60.9 Active 678667507 ALLERGIES No Information ENCOUNTERS Encounter Location Date Diagnosis [facility] [address] [facility] [id number] [address] Aug, [facility] [id number] [address] Aug, [facility] [id number] [place] [address] Jul, [facility] [address] [address] Jul, Alcoholism F10.20 ; Parkinson's disease (tremor, stiffness, slow motion, unstable posture) G20 and COPD (chronic obstructive pulmonary disease) J44.9 [facility] [address] [address] June, BMI 45.0-49.9, adult Z68.42 and Simple chronic bronchitis J41.0 [place] [address] [address] June, [place] [address] [address] May, HTN (hypertension) I10 and Type 2 diabetes mellitus with other circulatory complications E11.59 [place] [id number] [place] [address]47- [address] May, [place] [address] [address] May, COPD exacerbation J44.1 [place] [address] [address] Apr, Pure hypercholesterolemia E78.00 [place] [id number] [place] [address]208- [address] Apr, [facility] [id number] [place] [address] 17 Mar, 2017 Cough R05 ; COPD with acute exacerbation J44.1 and BMI 45.0 -49.9, adult Z68.42 [facility] [id number] [place] [address] 42204- [address] 13 Mar, 2017 [facility] [address] [address] Mar, [facility] [address], [place] [address] Feb, [facility] [id number] [place] [address]- [address] Feb, BMI 45.0-49.9, adult Z68.42 and Acute non-recurrent maxillary sinusitis J01.00 [facility] [id number] [place] [address] 5[address]- 0[address] Feb, [facility] [id number] [place] [address] 28889- 6542 Feb, [facility] [id number] [place] [address] 13342- 5657 Feb, GERD (gastroesophageal reflux disease) K21.9 [place] [id number] [place] [address] 89694- 3088 Jan, Panlobular emphysema J43.1 ; Type 2 diabetes mellitus with hyperglycemia E11.65 and snf 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 Z79.4 [facility] [id number] [place] [address] 23050- 4[address] Jan, [facility] [address], [place] [address] Dec, Chronic obstructive pulmonary disease with acute exacerbation J44.1 ; Cough R05 ; 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 ; Type 2 diabetes mellitus with other circulatory complications E11.59 ; snf 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 Z79.4 and BMI 45.0-49.9, adult Z68.42 [facility] [address], [place] [address] Oct, [facility] [id number] [place] [address] 23938- 5197 Sep, [facility] [id number] [place] [address] 09795- 9608 Aug, [facility] [id number] [address] May, [facility] [address], [place] [address] May, [facility] [address], [place] [address] Apr, [facility] [address], [place] [address] Apr, [facility] [id number] [place] [address] 26949- 9736 Apr, [facility] [id number] [place] [address] 90815- 9465 Apr, 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 [address] [place] [address] [id number] Mar, COPD (chronic obstructive pulmonary disease) J44.9 ; Alcoholism F10.20 and 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 [facility] 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 ; GERD (gastroesophageal reflux disease) K21.9 ; Hypothyroid E03.9 ; Sleep apnea G47.30 ; Parkinson's disease (tremor, stiffness , slow motion, unstable posture) G20 ; CAD (coronary artery disease) I25.10 ; Edema, unspecified type R60.9 ; COPD (chronic obstructive pulmonary disease) J44.9 and Neuropathy G62.9 [place] [id number] [place] [address] 79275- 295[address] Jan, HTN (hypertension) I10 [place] [id number] [place] [address] 6[address]20- 1618 Jan, COPD (chronic obstructive pulmonary disease) J44.9 ; Hypothyroid E03.9 ; Environmental allergies Z91.09 ; 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 ; Hypercholesterolemia E78.0 ; Sleep apnea G47.30 ; CAD (coronary artery disease) I25.10 ; HTN (hypertension ) I10 ; GERD (gastroesophageal reflux disease) K21.9 ; Anemia D64.9 and Edema, unspecified type R60.9 [place] [id number] [place] [address] 82212- [address] Dec, [address] [address] Dec, 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 ; GERD (gastroesophageal reflux disease) K21.9 ; HTN ( hypertension) I10 ; Hypothyroid E03.9 ; Environmental allergies Z91.09 ; Sleep apnea G47.30 ; CAD (coronary artery disease) I25.10 ; Hypercholesterolemia E78.0 and COPD (chronic obstructive pulmonary disease) J44.9 [place] [id number] [place] [address] 63649- 6593 Oct, [place] [id number] [place] [address]- 8748 Aug, 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 ; GERD (gastroesophageal reflux disease) K21.9 ; Hypothyroid E03.9 ; Environmental allergies Z91.09 ; CAD (coronary artery disease) I25.10 ; Hypercholesterolemia E78.0 ; COPD (chronic obstructive pulmonary disease) J44.9 and Sleep apnea G47.30 [place] [id number] [place] [address] 74906- 5405 Jul, COPD (chronic obstructive pulmonary disease) J44.9 [place] [id number] [place] [address] 09263- 40[address] June, [place] [id number] [place] [address] 33662- 0562 May, [place] [id number] [place] [address] 55582- 3401 Apr, COPD (chronic obstructive pulmonary disease) J44.9 ; Sleep apnea G47.30 ; HTN (hypertension) I10 ; Hypothyroid E03.9 ; Environmental allergies Z91.09 ; CAD (coronary artery disease) I25.10 ; Hypercholesterolemia E78.0 and 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 [facility] [id number] [place] [address] 58078- 9706 Apr, [facility] [id number] [place] [address] 89283- 4179 Mar, [facility] [id number] [place] [address] 01485- 7954 Mar, [facility] [id number] [place] [address] 16095- 4348 Feb, [facility] [id number] [place] [address] 43208- 7690 Feb, 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 ; Hypothyroid E03.9 ; HTN (hypertension) I10 ; COPD ( chronic obstructive pulmonary disease) J44.9 ; Sleep apnea G47.30 ; Hypercholesterolemia E78.0 ; Environmental allergies Z91.09 ; Diarrhea R19.7 and GERD (gastroesophageal reflux disease) K21.9 [facility] [id number] [place] [address] 27644- 2164 Feb, [facility] [id number] [place] [address] 17646- 0787 Jan, [facility] [id number] [place] [address] 97451- 6509 Jan, [facility] [id number] [place] [address] 82340- 5042 Jan, [facility] [id number] [place] [address] 74969- 5102 15 Jan, 2015 Anemia D64.9 [facility] [id number] [place] [address] 57428- 6033 14 Jan, 2015 [facility] [id number] [place] [address] 17379- 0707 10 Jan, 2015 Type 2 diabetes mellitus [...] End Date Duration Status Atorvastatin Calcium 40 mg Orally Once a day 1 tablet 24h 30 Active RESULTS No Results PROCEDURES No [...] History Double pneumonia 07/2015 Hospitalization History [facility] allergic reaction 03/2016 Hospitalization History [facility] spent 2 weeks 03/[address] [facility]- Pneumonia, COPD with Acute Exacerbation 05/19/2017
--- OUTSIDE RECORDS SUMMARY | 2017-11-01 06:56 | XMS REPORT ---
Author Author ROCKY MORRIS [facility] Address [address] [place] [address] Care Team Providers Care Swimming Instructor Name Role Phone ROCKY MORRIS Unavailable PROBLEMS Type Condition ICD9-CM Code VKR52-ET Code Onset Dates Condition Status SNOMED Code Problem Coronary atherosclerosis due to lipid rich plaque I25.83 Active 692166413858709 Problem Panlobular emphysema J43.1 Active 9732134 Problem Atherosclerotic heart disease of [place] coronary artery without angina pectoris I25.10 Active 264811406104250 Problem Simple chronic bronchitis J41.0 Active 34193666 Problem Pure hypercholesterolemia E78.00 Active 351571580 Problem COPD with acute exacerbation J44.1 Active 035487660 Problem emt intermediate 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 Z79.4 Active 955724022 Problem Type 2 diabetes mellitus with hyperglycemia E11.65 Active 976117748 Problem 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 Active 402165919393 Problem Type 2 diabetes mellitus with other circulatory complications E11.59 Active 66204512 Problem HTN (hypertension) I10 Active 15446503 Problem CAD (coronary artery disease) I25.10 Active 47337329 Problem Hypothyroid E03.9 Active 64839674 Problem COPD (chronic obstructive pulmonary disease) J44.9 Active 42968240 Problem Environmental allergies Z91.09 Active 358776735 Problem Neuropathy G62.9 Active 970602302 Problem 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 63218581008510 Problem 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 Active 77246244420389 Problem Sleep apnea G47.30 Active 21460999 Problem Edema, unspecified type R60.9 Active [id number] ALLERGIES No Information ENCOUNTERS Encounter Location Date Diagnosis [facility] [address] [facility] [id number] [address] Aug, [facility] [address] [id number] [address] Jul, [facility] [address] [address] Jul, Alcoholism F10.20 ; Parkinson's disease (tremor, stiffness, slow motion, unstable posture) G20 and COPD (chronic obstructive pulmonary disease) J44.9 [facility] [address] [address] June, BMI 45.0-49.9, adult Z68.42 and Simple chronic bronchitis J41.0 [place] [address] [address] June, [place] [address] [address] May, HTN (hypertension) I10 and Type 2 diabetes mellitus with other circulatory complications E11.59 [place] [address] [address] May, [place] [address] [address] May, COPD exacerbation J44.1 [place] [address] [address] Apr, Pure hypercholesterolemia E78.00 [place] [address] [address] Apr, [facility] [address] [address] Mar, Cough R05 ; COPD with acute exacerbation J44.1 and BMI 45.0 -49.9, adult Z68.42 [place] [address] [address] Mar, [facility] [address] [address] Mar, [place] [address] [address] Feb, [facility] [address] [place] [address] Feb, BMI 45.0-49.9, adult Z68.42 and Acute non-recurrent maxillary sinusitis J01.00 [facility] [id number] [place] [address] Feb, [facility] [id number] [place] [address]- [address] Feb, [facility] [id number] [place] [address]- [address] Feb, GERD (gastroesophageal reflux disease) K21.9 [place] [id number] [place] [address] Jan, Panlobular emphysema J43.1 ; Type 2 diabetes mellitus with hyperglycemia E11.65 and senior living 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 Z79.4 [place] [id number] [place] [address] Jan, [facility] [address] [place] [address] Dec, Chronic obstructive pulmonary disease with acute exacerbation J44.1 ; Cough R05 ; 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 ; Type 2 diabetes mellitus with other circulatory complications E11.59 ; senior living 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 Z79.4 and BMI 45.0-49.9, adult Z68.42 [facility] [address] [place] [address] Oct, [facility] [id number] [place] [address]- [address] Sep, [facility] [id number] [place] [address] Aug, [facility] [id number] [place] [address]- [address] May, [facility] [address] [place] [address] May, 2016 [facility] [address], [place] [address] Apr, [facility] [address], [place] [address] Apr, [facility] [address] [place] [address]12- [address] Apr, [place] [address] [place] [address]- [address] Apr, 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 ; GERD (gastroesophageal reflux disease) K21.9 ; HTN ( hypertension) I10 ; Environmental allergies Z91.09 ; COPD (chronic obstructive pulmonary disease) J44.9 ; Sleep apnea G47.30 ; Hypothyroid E03.9 ; Neuropathy G62.9 ; Pure hypercholesterolemia E78.00 ; Atherosclerotic heart disease of [place] coronary artery without angina pectoris I25.10 ; Coronary atherosclerosis due to lipid rich plaque I25.83 and Edema, unspecified type R60.[address] [facility] [address] [place] [id number] Mar, COPD (chronic obstructive pulmonary disease) J44.9 ; Alcoholism F10.20 and 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 [facility] [address] [place] [id number] Mar, Open wound T14.8 [place] [address] [place] [address] Mar, Environmental allergies Z91.09 ; Open wound, lower leg, right, initial encounter S81.801A ; GERD (gastroesophageal reflux disease) K21.9 ; Hypothyroid E03.9 ; Hypercholesterolemia E78.0 ; Sleep apnea G47.30 ; Neuropathy G62.9 ; Edema, unspecified type R60.9 ; 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 ; Coronary artery disease involving [place] coronary artery of [place] heart without angina pectoris I25.10 ; 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 and COPD (chronic obstructive pulmonary disease) J44.9 [place] [address] [address] Mar, [place] [id number] [place] [address] Mar, [place] [address] [place] [address]- [address] Mar, [facility] [address] [place] [id number] Mar, Alcoholism F10.20 ; 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 ; COPD (chronic obstructive pulmonary disease) J44.9 and Sleep apnea G47.30 [place] [id number] [place] [address] Mar, [place] [id number] [place] [address] Mar, [place] [id number] [place] [address]- [address] Feb, 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 ; GERD (gastroesophageal reflux disease) K21.9 ; Hypothyroid E03.9 ; Sleep apnea G47.30 ; Parkinson's disease (tremor, stiffness , slow motion, unstable posture) G20 ; CAD (coronary artery disease) I25.10 ; Edema, unspecified type R60.9 ; COPD (chronic obstructive pulmonary disease) J44.9 and Neuropathy G62.9 [place] [address], [place] [address] Jan, HTN (hypertension) I10 [address] [place] [address]- [address] Jan, COPD (chronic obstructive pulmonary disease) J44.9 ; Hypothyroid E03.9 ; Environmental allergies Z91.09 ; 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 ; Hypercholesterolemia E78.0 ; Sleep apnea G47.30 ; CAD (coronary artery disease) I25.10 ; HTN (hypertension ) I10 ; GERD (gastroesophageal reflux disease) K21.9 ; Anemia D64.9 and Edema, unspecified type R60.9 [place] [id number] [place] [address] Dec, [place] [id number] [place] [address]- [address] Dec, 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 ; GERD (gastroesophageal reflux disease) K21.9 ; HTN ( hypertension) I10 ; Hypothyroid E03.9 ; Environmental allergies Z91.09 ; Sleep apnea G47.30 ; CAD (coronary artery disease) I25.10 ; Hypercholesterolemia E78.0 and COPD (chronic obstructive pulmonary disease) J44.9 [place] [id number] [place] [address]- [address] Oct, [place] [id number] [place] [address]- [address] Aug, 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 ; GERD (gastroesophageal reflux disease) K21.9 ; Hypothyroid E03.9 ; Environmental allergies Z91.09 ; CAD (coronary artery disease) I25.10 ; Hypercholesterolemia E78.0 ; COPD (chronic obstructive pulmonary disease) J44.9 and Sleep apnea G47.30 [place] [id number] [place] [address]- [address] Jul, COPD (chronic obstructive pulmonary disease) J44.9 [place] [id number] [place] [address]- [address] June, [place] [id number] [place] [address]- 8[address] May, [place] [id number] [place] [address]- 3586 Apr, COPD (chronic obstructive pulmonary disease) J44.9 ; Sleep apnea G47.30 ; HTN (hypertension) I10 ; Hypothyroid E03.9 ; Environmental allergies Z91.09 ; CAD (coronary artery disease) I25.10 ; Hypercholesterolemia E78.0 and 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 [facility] [address] [place] [address] Apr, [facility] [address] [place] [address] Mar, [facility] [address] [place] [address] Mar, [facility] [address] [place] [address] Feb, [facility] [address] [place] [address] Feb, 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 ; Hypothyroid E03.9 ; HTN (hypertension) I10 ; COPD ( chronic obstructive pulmonary disease) J44.9 ; Sleep apnea G47.30 ; Hypercholesterolemia E78.0 ; Environmental allergies Z91.09 ; Diarrhea R19.7 and GERD (gastroesophageal reflux disease) K21.9 [place] [address] [place] [address] Feb, [facility] [address] [place] [address] Jan, [facility] [address] [place] [address] Jan, [facility] [address] [place] [address] Jan, [facility] [address] [place] [address] 2546 Jan, Anemia D64.9 [facility] [address] [place] [address] 14 Jan, 2015 [facility] [address] [place] [address] 10 Jan, 2015 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 ; Hypothyroid E03.9 ; HTN (hypertension) I10 ; COPD ( chronic obstructive pulmonary disease) J44.9 ; Sleep apnea G47.30 ; Hypercholesterolemia E78.0 ; CAD (coronary artery disease) I25.10 and Environmental allergies Z91.09 IMMUNIZATIONS No Known Immunizations SOCIAL HISTORY Never Assessed REASON FOR VISIT Medication refill request PLAN OF CARE VITAL SIGNS MEDICATIONS Unknown Medications RESULTS No Results PROCEDURES No Known procedures [...] Chronically Ill allergic reaction 03/2016 Hospitalization History [facility] spent 2 weeks 03/2016 Hospitalization History [facility]- Pneumonia, COPD with Acute Exacerbation 05/19/2017
--- OUTSIDE RECORDS SUMMARY | 2017-11-01 06:57 | XMS REPORT ---
Author Author ROCKY MORRIS [facility] Address [address] [place] [address] Care Team Providers Care Building Cleaner Name Role Phone ROCKY MORRIS Unavailable PROBLEMS Type Condition ICD9-CM Code [id number] Code Onset Dates Condition Status SNOMED Code Problem Coronary atherosclerosis due to lipid rich plaque I25.83 Active 898633051691326 Problem Panlobular emphysema J43.1 Active 6746658 Problem Atherosclerotic heart disease of [place] coronary artery without angina pectoris I25.10 Active 394436140658581 Problem Simple chronic bronchitis J41.0 Active 91257732 Problem Pure hypercholesterolemia E78.00 Active 592247761 Problem COPD with acute exacerbation J44.1 Active 045240601 Problem 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 Z79.4 Active 268444805 Problem Type 2 diabetes mellitus with hyperglycemia E11.65 Active 805013052 Problem 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 Active 138114375852 Problem Type 2 diabetes mellitus with other circulatory complications E11.59 Active 79644515 Problem HTN (hypertension) I10 Active 53463038 Problem CAD (coronary artery disease) I25.10 Active 25491461 Problem Hypothyroid E03.9 Active 03199745 Problem COPD (chronic obstructive pulmonary disease) J44.9 Active 53936655 Problem Environmental allergies Z91.09 Active 964982090 Problem Neuropathy G62.9 Active 710233454 Problem 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 54058625053823 Problem 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 Active 93503615481152 Problem Sleep apnea G47.30 Active 05568569 Problem Edema, unspecified type R60.9 Active 984107252 ALLERGIES No Information ENCOUNTERS Encounter Location Date Diagnosis [facility] [address] [facility] [id number] [address] Aug, [facility] [id number] [address] Jul, [facility] [address] [address] Jul, Alcoholism F10.20 ; Parkinson's disease (tremor, stiffness, slow motion, unstable posture) G20 and COPD (chronic obstructive pulmonary disease) J44.9 [facility] [address] [address] June, BMI 45.0-49.9, adult Z68.42 and Simple chronic bronchitis J41.0 [facility] [address] [address] June, [place] [address] [address] May, HTN (hypertension) I10 and Type 2 diabetes mellitus with other circulatory complications E11.59 [facility] [facility] [address] [address] May, [facility] [facility] [address] [address] May, COPD exacerbation J44.1 [facility] [address] [address] Apr, Pure hypercholesterolemia E78.00 [place] [address] [address] Apr, [facility] [address] [address] Mar, Cough R05 ; COPD with acute exacerbation J44.1 and BMI 45.0 -49.9, adult Z68.42 [facility] [facility] [address] [address] Mar, [facility] [address] [address] Mar, [place] [address] [address] Feb, [facility] [id number] [place] [address] Feb, BMI 45.0-49.9, adult Z68.42 and Acute non-recurrent maxillary sinusitis J01.00 [facility] [id number] [place] [address] Feb, [facility] [id number] [place] [address] Feb, [facility] [id number] [place] [address] Feb, GERD (gastroesophageal reflux disease) K21.9 [facility] [id number] [place] [address] Jan, Panlobular emphysema J43.1 ; Type 2 diabetes mellitus with hyperglycemia E11.65 and skilled nursing 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 Z79.4 [facility] [id number] [place] [address] Jan, [facility] [address] [place] [address] Dec, Chronic obstructive pulmonary disease with acute exacerbation J44.1 ; Cough R05 ; 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 ; Type 2 diabetes mellitus with other circulatory complications E11.59 ; skilled nursing 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 Z79.4 and BMI 45.0-49.9, adult Z68.42 [facility] [address] [place] [address] Oct, [facility] [id number] [place] [address]87[address] Sep, [facility] [id number] [place] [address] Aug, [facility] [id number] [place] [address] May, [facility] [address] [place] [address] May, 2016 [facility] [address], [place] [address] Apr, [facility] [address], [place] [address] Apr, [facility] [address] [place] [address] Apr, [facility] [address] [place] [address] Apr, 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 ; GERD (gastroesophageal reflux disease) K21.9 ; HTN ( hypertension) I10 ; Environmental allergies Z91.09 ; COPD (chronic obstructive pulmonary disease) J44.9 ; Sleep apnea G47.30 ; Hypothyroid E03.9 ; Neuropathy G62.9 ; Pure hypercholesterolemia E78.00 ; Atherosclerotic heart disease of [place] coronary artery without angina pectoris I25.10 ; Coronary atherosclerosis due to lipid rich plaque I25.83 and Edema, unspecified type R60.9 [facility] [address] [place] [id number] Mar, COPD (chronic obstructive pulmonary disease) J44.9 ; Alcoholism F10.20 and 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 [facility] [employer] [address] [place] [id number] Mar, Open wound T14.8 [facility] [address] [place] [address] Mar, Environmental allergies Z91.09 ; Open wound, lower leg, right, initial encounter S81.801A ; GERD (gastroesophageal reflux disease) K21.9 ; Hypothyroid E03.9 ; Hypercholesterolemia E78.0 ; Sleep apnea G47.30 ; Neuropathy G62.9 ; Edema, unspecified type R60.9 ; 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 ; Coronary artery disease involving [place] coronary artery of [place] heart without angina pectoris I25.10 ; 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 and COPD (chronic obstructive pulmonary disease) J44.9 [facility] [address] [address] Mar, [facility] [id number] [place] [address] Mar, [facility] [address] [place] [address] Mar, [facility] [address] [place] [id number] Mar, Alcoholism F10.20 ; 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 ; COPD (chronic obstructive pulmonary disease) J44.9 and Sleep apnea G47.30 [place] [id number] [place] [address] Mar, [place] [id number] [place] [address] Mar, [place] [id number] [place] [address] Feb, 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 ; GERD (gastroesophageal reflux disease) K21.9 ; Hypothyroid E03.9 ; Sleep apnea G47.30 ; Parkinson's disease (tremor, stiffness , slow motion, unstable posture) G20 ; CAD (coronary artery disease) I25.10 ; Edema, unspecified type R60.9 ; COPD (chronic obstructive pulmonary disease) J44.9 and Neuropathy G62.9 [facility] [address], [place] [address] Jan, HTN (hypertension) I10 [address] [place] [address] Jan, COPD (chronic obstructive pulmonary disease) J44.9 ; Hypothyroid E03.9 ; Environmental allergies Z91.09 ; 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 ; Hypercholesterolemia E78.0 ; Sleep apnea G47.30 ; CAD (coronary artery disease) I25.10 ; HTN (hypertension ) I10 ; GERD (gastroesophageal reflux disease) K21.9 ; Anemia D64.9 and Edema, unspecified type R60.9 [facility] [id number] [place] [address] Dec, [facility] [id number] [place] [address] Dec, 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 ; GERD (gastroesophageal reflux disease) K21.9 ; HTN ( hypertension) I10 ; Hypothyroid E03.9 ; Environmental allergies Z91.09 ; Sleep apnea G47.30 ; CAD (coronary artery disease) I25.10 ; Hypercholesterolemia E78.0 and COPD (chronic obstructive pulmonary disease) J44.9 [facility] [id number] [place] [address] Oct, [facility] [id number] [place] [address] Aug, 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 ; GERD (gastroesophageal reflux disease) K21.9 ; Hypothyroid E03.9 ; Environmental allergies Z91.09 ; CAD (coronary artery disease) I25.10 ; Hypercholesterolemia E78.0 ; COPD (chronic obstructive pulmonary disease) J44.9 and Sleep apnea G47.30 [facility] [id number] [place] [address] Jul, COPD (chronic obstructive pulmonary disease) J44.9 [facility] [id number] [place] [address] June, [facility] [id number] [place] [address] May, [facility] [id number] [place] [address] Apr, COPD (chronic obstructive pulmonary disease) J44.9 ; Sleep apnea G47.30 ; HTN (hypertension) I10 ; Hypothyroid E03.9 ; Environmental allergies Z91.09 ; CAD (coronary artery disease) I25.10 ; Hypercholesterolemia E78.0 and 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 [facility] [address], [place] [address] Apr, [facility] [address] [place] [address] Mar, [facility] [address], [place] [address] Mar, [facility] [address], [place] [address] Feb, [facility] [address], [place] [address] Feb, 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 ; Hypothyroid E03.9 ; HTN (hypertension) I10 ; COPD ( chronic obstructive pulmonary disease) J44.9 ; Sleep apnea G47.30 ; Hypercholesterolemia E78.0 ; Environmental allergies Z91.09 ; Diarrhea R19.7 and GERD (gastroesophageal reflux disease) K21.9 [facility] [address], [place] [address] Feb, [facility] [address], [place] [address] Jan, [facility] [address], [place] [address] Jan, [facility] [address], [place] [address] Jan, [facility] [address] [place] [address] 2546 Jan, Anemia D64.9 [facility] [address] [place] [address] 14 Jan, 2015 [facility] [address] [place] [address] 10 Jan, 2015 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 ; Hypothyroid E03.9 ; HTN (hypertension) I10 ; COPD ( chronic obstructive pulmonary disease) J44.9 ; Sleep apnea G47.30 ; Hypercholesterolemia E78.0 ; CAD (coronary artery disease) I25.10 and Environmental allergies Z91.09 IMMUNIZATIONS No Known Immunizations SOCIAL HISTORY Never Assessed REASON FOR VISIT Disabled Parking PLAN OF CARE VITAL SIGNS MEDICATIONS Unknown [...] [facility] allergic reaction 03/2016 Hospitalization History [facility] spent 2 weeks 03/2016 Hospitalization History [facility]- Pneumonia, COPD with Acute Exacerbation 05/19/2017
--- OUTSIDE RECORDS SUMMARY | 2017-11-01 06:57 | XMS REPORT ---
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 09347089635231 Problem Hypothyroid E03.9 Active 13130331 Problem COPD (chronic obstructive pulmonary disease) J44.9 Active 03695226 Problem Coronary atherosclerosis due to lipid rich plaque I25.83 Active 705953577411525 Problem HTN (hypertension) I10 Active 95431971 Problem Atherosclerotic heart disease of [place] coronary artery without angina pectoris I25.10 Active 924471528171128 Problem CAD (coronary artery disease) I25.10 Active 34962697 Problem Panlobular emphysema J43.1 Active 2328988 Problem Type 2 diabetes mellitus with other circulatory complications E11.59 Active 85398581 Problem Type 2 diabetes mellitus with hyperglycemia E11.65 Active 083161147 Problem Simple chronic bronchitis J41.0 Active 82522215 Problem COPD exacerbation J44.1 Active 011665172 Problem Sleep apnea G47.30 Active 41730353 Problem Environmental allergies Z91.09 Active 686189554 Problem GERD (gastroesophageal reflux disease) K21.9 Active 878166952 Problem 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 Active 840579457 Problem Diabetes E11.9 Active 645269225 Problem COPD with acute exacerbation J44.1 Active 743985379 Problem 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 Active 531484979282 Problem Parkinson's disease (tremor, stiffness, slow motion, unstable posture ) G20 Active 13464227 Problem Alcoholism F10.20 Active 2087558 Problem Diarrhea R19.7 Active 81664891 Problem Neuropathy G62.9 Active 662554364 Problem Edema, unspecified type R60.9 Active 623401357 Problem Coronary artery disease involving [place] coronary artery of [place] heart without angina pectoris I25.10 Active 1347142333862 Problem 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 Active 90555449149659 Problem Open wound, lower leg, right, initial encounter S81.801A Active 518715826 ALLERGIES No Information ENCOUNTERS Encounter Location Date Diagnosis [facility] [id number] [place] [address] Jul, [place] [address] [address] June, BMI 45.0-49.9, adult Z68.42 and Simple chronic bronchitis J41.0 [place] [address] [address] June, [place] [address] [address] May, HTN (hypertension) I10 and Type 2 diabetes mellitus with other circulatory complications E11.59 [place] [address] [address] May, [place] [address] [address] May, COPD exacerbation J44.1 [place] [address] [address] Apr, Pure hypercholesterolemia E78.00 [place] [address] [address] Apr, [facility] [id number] [place] [address] Mar, Cough R05 ; COPD with acute exacerbation J44.1 and BMI 45.0 -49.9, adult Z68.42 [place] [id number] [place] [address]26- 9[address] 13 Mar, 2017 [place] [address] [address] Mar, [facility] [id number] [place] [address] Feb, [facility] [id number] [place] [address]- 16[address] Feb, BMI 45.0-49.9, adult Z68.42 and Acute non-recurrent maxillary sinusitis J01.00 [facility] [id number] [place] [address] 29196- 4365 Feb, [facility] [id number] [place] [address] 70347- 7879 Feb, [place] [id number] [place] [address] 34562- 75[address] Feb, GERD (gastroesophageal reflux disease) K21.9 [place] [id number] [place] [address] 44894- 5686 Jan, Panlobular emphysema J43.1 ; Type 2 diabetes mellitus with hyperglycemia E11.65 and retirement 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 Z79.4 [facility] [id number] [place] [address] 55586- [address] Jan, [facility] [id number] [place] [address] Dec, Chronic obstructive pulmonary disease with acute exacerbation J44.1 ; Cough R05 ; 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 ; Type 2 diabetes mellitus with other circulatory complications E11.59 ; retirement 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 Z79.4 and BMI 45.0-49.9, adult Z68.42 [facility] [address] [address] Oct, [facility] [id number] [place] [address] 70262- 69[address] Sep, [facility] [id number] [place] [address] 75800- 1756 Aug, [facility] [id number] [place] [address] 01556- 5055 May, [facility] [address] [address] May, [facility] [address] [address] Apr, [place] [address] [address] Apr, [place] [id number] [place] [address] 07846- 1627 Apr, [place] [address] [place] [address] 15177- 6[address] Apr, 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 ; GERD (gastroesophageal reflux disease) K21.9 ; HTN ( hypertension) I10 ; Environmental allergies Z91.09 ; COPD (chronic obstructive pulmonary disease) J44.9 ; Sleep apnea G47.30 ; Hypothyroid E03.9 ; Neuropathy G62.9 ; Pure hypercholesterolemia E78.00 ; Atherosclerotic heart disease of [place] coronary artery without angina pectoris I25.10 ; Coronary atherosclerosis due to lipid rich plaque I25.83 and Edema, unspecified type R60.[address] [facility] [address] [place] [id number] Mar, COPD (chronic obstructive pulmonary disease) J44.9 ; Alcoholism F10.20 and 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 [facility] [address] [place] [id number] Mar, Open wound T14.8 [place] [id number] [address] Mar, Environmental allergies Z91.09 ; Open wound, lower leg, right, initial encounter S81.801A ; GERD (gastroesophageal reflux disease) K21.9 ; Hypothyroid E03.9 ; Hypercholesterolemia E78.0 ; Sleep apnea G47.30 ; Neuropathy G62.9 ; Edema, unspecified type R60.9 ; 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 ; Coronary artery disease involving [place] coronary artery of [place] heart without angina pectoris I25.10 ; 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 and COPD (chronic obstructive pulmonary disease) J44.9 [place] [id number] [place] [address] 44418- 1547 Mar, [place] [id number] [place] [address] 49358- [address] Mar, [place] [id number] [place] [address]- [address] Mar, [facility] [address] [place] [phone] Mar, Alcoholism F10.20 ; 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 ; COPD (chronic obstructive pulmonary disease) J44.9 and Sleep apnea G47.30 [place] [id number] [place] [address] 07005- 9584 Mar, [place] [id number] [place] [address] 53576- 45[address] Mar, [place] [id number] [place] [address]- 2009 Feb, 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 ; GERD (gastroesophageal reflux disease) K21.9 ; Hypothyroid E03.9 ; Sleep apnea G47.30 ; Parkinson's disease (tremor, stiffness , slow motion, unstable posture) G20 ; CAD (coronary artery disease) I25.10 ; Edema, unspecified type R60.9 ; COPD (chronic obstructive pulmonary disease) J44.9 and Neuropathy G62.9 [place] [address] [place] [address] 46943- 76[address] Jan, HTN (hypertension) I10 [place] [id number] [place] [address] 13894- 9[address] Jan, COPD (chronic obstructive pulmonary disease) J44.9 ; Hypothyroid E03.9 ; Environmental allergies Z91.09 ; 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 ; Hypercholesterolemia E78.0 ; Sleep apnea G47.30 ; CAD (coronary artery disease) I25.10 ; HTN (hypertension ) I10 ; GERD (gastroesophageal reflux disease) K21.9 ; Anemia D64.9 and Edema, unspecified type R60.9 [place] [id number] [place] [address] 94455- 9820 Dec, [place] [id number] [place] [address] 86018- 34[address] Dec, 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 ; GERD (gastroesophageal reflux disease) K21.9 ; HTN ( hypertension) I10 ; Hypothyroid E03.9 ; Environmental allergies Z91.09 ; Sleep apnea G47.30 ; CAD (coronary artery disease) I25.10 ; Hypercholesterolemia E78.0 and COPD (chronic obstructive pulmonary disease) J44.9 [place] [id number] [place] [address] 66044- [address] Oct, [place] [id number] [place] [address] 30983- 7790 Aug, 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 ; GERD (gastroesophageal reflux disease) K21.9 ; Hypothyroid E03.9 ; Environmental allergies Z91.09 ; CAD (coronary artery disease) I25.10 ; Hypercholesterolemia E78.0 ; COPD (chronic obstructive pulmonary disease) J44.9 and Sleep apnea G47.30 [place] [id number] [place] [address] 80176- 24[address] Jul, COPD (chronic obstructive pulmonary disease) J44.9 [place] [id number] [place] [address] 02903- 50[address] June, [place] [id number] [place] [address] 10803- 8696 May, [place] [id number] [place] [address] 30550- 8709 Apr, COPD (chronic obstructive pulmonary disease) J44.9 ; Sleep apnea G47.30 ; HTN (hypertension) I10 ; Hypothyroid E03.9 ; Environmental allergies Z91.09 ; CAD (coronary artery disease) I25.10 ; Hypercholesterolemia E78.0 and 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 [facility] [id number] [place] [address] 14846- 7583 Apr, [facility] [id number] [place] [address] 08666- 0208 Mar, [facility] [address] [address]- [address] Mar, [facility] [id number] [place] [address] 68292- 3686 Feb, [facility] [id number] [place] [address] 12931- 5330 Feb, 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 ; Hypothyroid E03.9 ; HTN (hypertension) I10 ; COPD ( chronic obstructive pulmonary disease) J44.9 ; Sleep apnea G47.30 ; Hypercholesterolemia E78.0 ; Environmental allergies Z91.09 ; Diarrhea R19.7 and GERD (gastroesophageal reflux disease) K21.9 [place] [id number] [place] [address] 74236- 8706 Feb, [facility] [id number] [place] [address] 73440- 8596 Jan, [facility] [id number] [place] [address] 90636- 5528 Jan, [facility] [id number] [place] [address] 58794- 6392 Jan, [place] [id number] [place] [address] 75560- 6351 Jan, Anemia D64.9 [facility] [id number] [place] [address] 53268- 0806 Jan, [facility] [id number] [place] [address] 30988- 6592 Jan, 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 ; Hypothyroid E03.9 ; HTN (hypertension) I10 ; COPD ( chronic obstructive pulmonary disease) J44.9 ; Sleep apnea G47.30 ; Hypercholesterolemia E78.0 ; CAD (coronary artery disease) I25.10 and Environmental allergies Z91.09 IMMUNIZATIONS No Known Immunizations SOCIAL HISTORY Never Assessed REASON FOR VISIT Duplicate refill request PLAN OF CARE VITAL SIGNS [...] Double pneumonia 07/2015 Hospitalization History [facility] allergic reaction 03/2016 Hospitalization History [facility] spent 2 weeks 03/2016 Hospitalization History [facility]- Pneumonia, COPD with Acute Exacerbation 05/19/2017
--- OUTSIDE RECORDS SUMMARY | 2017-11-01 06:57 | XMS REPORT ---
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 31012905370463 Problem Hypothyroid E03.9 Active 36304521 Problem COPD (chronic obstructive pulmonary disease) J44.9 Active 03490822 Problem Coronary atherosclerosis due to lipid rich plaque I25.83 Active 665051663277863 Problem HTN (hypertension) I10 Active 13633477 Problem Atherosclerotic heart disease of [place] coronary artery without angina pectoris I25.10 Active 162310417692941 Problem CAD (coronary artery disease) I25.10 Active 04989548 Problem Panlobular emphysema J43.1 Active 4742552 Problem Type 2 diabetes mellitus with other circulatory complications E11.59 Active 03285002 Problem Type 2 diabetes mellitus with hyperglycemia E11.65 Active 551796701 Problem Simple chronic bronchitis J41.0 Active 26896923 Problem COPD exacerbation J44.1 Active 977906905 Problem Sleep apnea G47.30 Active 28158171 Problem Environmental allergies Z91.09 Active 224583309 Problem GERD (gastroesophageal reflux disease) K21.9 Active 281275383 Problem 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 Active 851788153 Problem Diabetes E11.9 Active 174915689 Problem COPD with acute exacerbation J44.1 Active 078838090 Problem 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 Active 802325906013 Problem Parkinson's disease (tremor, stiffness, slow motion, unstable posture ) G20 Active 47005422 Problem Alcoholism F10.20 Active 4808973 Problem Diarrhea R19.7 Active 18556637 Problem Neuropathy G62.9 Active 383492087 Problem Edema, unspecified type R60.9 Active 751301411 Problem Coronary artery disease involving [place] coronary artery of [place] heart without angina pectoris I25.10 Active 8324623348962 Problem 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 Active 80472770858440 Problem Open wound, lower leg, right, initial encounter S81.801A Active 170374320 ALLERGIES Substance Reaction Event Type Date Status Gabapentin Unknown Drug Allergy Jan, Active Cozaar anaphylaxis Drug Allergy Jan, Active Benazepril HCl anaphylaxis Drug Allergy Jan, Active ENCOUNTERS Encounter Location Date Diagnosis [place] [address] [address] Jul, [place] [address] [address] June, BMI 45.0-49.9, adult Z68.42 and Simple chronic bronchitis J41.0 [place] [address] [address] June, [place] [address] [address] May, HTN (hypertension) I10 and Type 2 diabetes mellitus with other circulatory complications E11.59 [place] [address] [address] May, [place] [address] [address] May, COPD exacerbation J44.1 [place] [address] [address] Apr, Pure hypercholesterolemia E78.00 [place] [address] [address] Apr, [facility] [address] [address] 17 Mar, 2017 Cough R05 ; COPD with acute exacerbation J44.1 and BMI 45.0 -49.9, adult Z68.42 [place] [address] [address] Mar, [facility] [address] [address] Mar, [facility] [address] [place] [id number] [place] [address] Feb, [facility] [address] [place] [id number] [place] [address] Feb, BMI 45.0-49.9, adult Z68.42 and Acute non-recurrent maxillary sinusitis J01.00 [facility] [address] [place] [id number] [place] [address] Feb, [facility] [address] [place] [id number] [place] [address]- [address] Feb, [place] [address] [place] [id number] [place] [address] Feb, GERD (gastroesophageal reflux disease) K21.9 [facility] [address] [place] [id number] [place] [address] Jan, Panlobular emphysema J43.1 ; Type 2 diabetes mellitus with hyperglycemia E11.65 and 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 [place] [id number] [place] [address] Jan, [facility] [id number] [place] [address] Dec, Chronic obstructive pulmonary disease with acute exacerbation J44.1 ; Cough R05 ; 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 ; Type 2 diabetes mellitus with other circulatory complications E11.59 ; 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 and BMI 45.0-49.9, adult Z68.42 [facility] [address] [place] [address] Oct, [facility] [address] [place] [id number] [place] [address] Sep, [facility] [address] [place] [address] Aug, [facility] [address] [address] May, [facility] [address] [address] May, [facility] [address] [place] [address] Apr, [facility] [address] [place] [address]- [address] Apr, [facility] [address] [place] [address]- [address] Apr, [facility] [address] [place] [address]- [address] Apr, 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 ; GERD (gastroesophageal reflux disease) K21.9 ; HTN ( hypertension) I10 ; Environmental allergies Z91.09 ; COPD (chronic obstructive pulmonary disease) J44.9 ; Sleep apnea G47.30 ; Hypothyroid E03.9 ; Neuropathy G62.9 ; Pure hypercholesterolemia E78.00 ; Atherosclerotic heart disease of [place] coronary artery without angina pectoris I25.10 ; Coronary atherosclerosis due to lipid rich plaque I25.83 and Edema, unspecified type R60.[address] [facility] [address] [place] [id number] Mar, COPD (chronic obstructive pulmonary disease) J44.9 ; Alcoholism F10.20 and 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 [facility] [address] [place] [id number] Mar, Open wound T14.8 [facility] [address] [place] [address] Mar, Environmental allergies Z91.09 ; Open wound, lower leg, right, initial encounter S81.801A ; GERD (gastroesophageal reflux disease) K21.9 ; Hypothyroid E03.9 ; Hypercholesterolemia E78.0 ; Sleep apnea G47.30 ; Neuropathy G62.9 ; Edema, unspecified type R60.9 ; 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 ; Coronary artery disease involving [place] coronary artery of [place] heart without angina pectoris I25.10 ; 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 and COPD (chronic obstructive pulmonary disease) J44.9 [place] [address] [place] [address] Mar, [place] [address] [address] Mar, [place] [address] [place] [id number] [place] [address] Mar, [facility] [address] [place] [id number] Mar, Alcoholism F10.20 ; 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 ; COPD (chronic obstructive pulmonary disease) J44.9 and Sleep apnea G47.30 [place] [id number] [place] [address] Mar, [place] [address] [place] [id number] [place] [address] Mar, [place] [id number] [place] [address] Feb, 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 ; GERD (gastroesophageal reflux disease) K21.9 ; Hypothyroid E03.9 ; Sleep apnea G47.30 ; Parkinson's disease (tremor, stiffness , slow motion, unstable posture) G20 ; CAD (coronary artery disease) I25.10 ; Edema, unspecified type R60.9 ; COPD (chronic obstructive pulmonary disease) J44.9 and Neuropathy G62.9 [place] [id number] [place] [address] Jan, HTN (hypertension) I10 [place] [id number] [place] [address] Jan, COPD (chronic obstructive pulmonary disease) J44.9 ; Hypothyroid E03.9 ; Environmental allergies Z91.09 ; 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 ; Hypercholesterolemia E78.0 ; Sleep apnea G47.30 ; CAD (coronary artery disease) I25.10 ; HTN (hypertension ) I10 ; GERD (gastroesophageal reflux disease) K21.9 ; Anemia D64.9 and Edema, unspecified type R60.9 [place] [id number] [place] [address]- [address] Dec, [address] [address] Dec, 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 ; GERD (gastroesophageal reflux disease) K21.9 ; HTN ( hypertension) I10 ; Hypothyroid E03.9 ; Environmental allergies Z91.09 ; Sleep apnea G47.30 ; CAD (coronary artery disease) I25.10 ; Hypercholesterolemia E78.0 and COPD (chronic obstructive pulmonary disease) J44.9 [place] [id number] [place] [address] Oct, [address] [address] Aug, 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 ; GERD (gastroesophageal reflux disease) K21.9 ; Hypothyroid E03.9 ; Environmental allergies Z91.09 ; CAD (coronary artery disease) I25.10 ; Hypercholesterolemia E78.0 ; COPD (chronic obstructive pulmonary disease) J44.9 and Sleep apnea G47.30 [place] [id number] [place] [address]- [address] Jul, COPD (chronic obstructive pulmonary disease) J44.9 [place] [id number] [place] [address]- [address] June, [place] [id number] [place] [address]- [address] May, [place] [id number] [place] [address]- [address] Apr, COPD (chronic obstructive pulmonary disease) J44.9 ; Sleep apnea G47.30 ; HTN (hypertension) I10 ; Hypothyroid E03.9 ; Environmental allergies Z91.09 ; CAD (coronary artery disease) I25.10 ; Hypercholesterolemia E78.0 and 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 [facility] [address] [place] [id number] [place] [address]- [address] Apr, [facility] [address] [place] [id number] [place] [address]- [address] Mar, [facility] [address] [place] [id number] [place] [address]- [address] Mar, [place] [address] [address] Feb, [place] [address] [place] [id number] [place] [address]- [address] Feb, 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 ; Hypothyroid E03.9 ; HTN (hypertension) I10 ; COPD ( chronic obstructive pulmonary disease) J44.9 ; Sleep apnea G47.30 ; Hypercholesterolemia E78.0 ; Environmental allergies Z91.09 ; Diarrhea R19.7 and GERD (gastroesophageal reflux disease) K21.9 [place] [address] [place] [id number] [place] [address]32- 5768 Feb, [facility] [address] [place] [id number] [place] [address]- [address] Jan, [place] [address] [place] [id number] [place] [address]93- 5865 Jan, [place] [address] [address] 16 Jan, 2015 [place] [address] [place] [id number] [place] [address]- [address] 15 Jan, 2015 Anemia D64.9 [facility] [address] [address] Jan, [facility] [address] [facility] [id number] [place] [address] Jan, 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 diabetes checkup VITAL SIGNS Height 72.0 in 2017-01-30 Weight 353 lbs 2017-01-30 Temperature 98.0 degrees Fahrenheit 2017-01-30 Heart Rate 90 bpm 2017-01-30 Respiratory Rate 28 2017-01-30 Oximetry 98 % 2017-01-30 BMI 47.87 kg/m2 2017-01-30 Blood pressure systolic 140 mmHg 2017-01-30 Blood pressure diastolic 88 mmHg 2017-01-30 MEDICATIONS Medication Instructions Dosage Frequency Start Date End Date Duration Status Albuterol Sulfate (2.5 MG/3ML) 0.083% Inhalation every 4 hours prn 3 ml 15 Active Oxygen 3 L by inhalation route continious 1 puff Apr, Active Spiriva HandiHaler 18 MCG INHALE CONTENTS OF ONE CAPSULE BY MOUTH ONCE DAILY (TWO INHALATIONS PER ONE CAPSULE) 30 Active Bumex 2 MG Orally Once a day 1 tablet 24h 30 Active Advair Diskus 250-50 MCG/DOSE INHALE ONE PUFF BY MOUTH TWICE DAILY 30 Active Metformin HCl 1000 MG Orally Twice a day 1 tablet with meals 12h 30 Active Levothyroxine Sodium 200 MCG Orally Once a day 1 tablet on an empty stomach in the morning 24h Active NovoLog Flexpen 100 UNIT/ML Subcutaneous 3 times a day INJECT 50 UNITS SUBCUTANEOUSLY THREE TIMES DAILY 8h 30 Active Amlodipine Besylate 10 MG Orally Once a day 1 tablet 24h Active Atorvastatin Calcium 40 MG Orally Once a day 1 tablet 24h 30 Active Hydrocodone-Acetaminophen 7.5-325 MG Orally 3 times a day 1 tablet as needed 8h 04 Jan, 2017 Jan, 15 days Active Hydrochlorothiazide 25 MG Orally Once a day 1 tablet 24h 30 Active Metoprolol Tartrate 50 mg Orally Once a day 2 tabs 24h Active Fish Oil Active Omeprazole 40 MG TAKE ONE CAPSULE BY MOUTH ONCE DAILY 30 Active Plavix 75 MG Orally Once a day 1 tablet 24h Active Levemir FlexTouch 100 UNIT/ML Subcutaneous 2 times a day 50 units 12h 30 Active Nitrostat 0.4 MG Active Guaifenesin 200 MG Orally every 4 hrs 1 tablet as needed 4h Active Sarah Allergy 180 MG Orally Once a day 1 tablet as needed 24h Active RESULTS No Results PROCEDURES Procedure Date Ordered Result Body Site MEASURE BLOOD OXYGEN LEVEL Jan 30, 2017 INSTRUCTIONS MEDICATIONS ADMINISTERED No Known [...] History Double pneumonia 07/2015 Hospitalization History [facility] allergic reaction 03/2016 Hospitalization History [facility] spent 2 weeks 03/2016 Hospitalization History [facility]- Pneumonia, COPD with Acute Exacerbation 05/19/2017
--- OUTSIDE RECORDS SUMMARY | 2017-11-01 06:58 | XMS REPORT ---
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 70487191580320 Problem Hypothyroid E03.9 Active 07012909 Problem COPD (chronic obstructive pulmonary disease) J44.9 Active 20798430 Problem Coronary atherosclerosis due to lipid rich plaque I25.83 Active 660693096689515 Problem HTN (hypertension) I10 Active 39765686 Problem Atherosclerotic heart disease of wiyot coronary artery without angina pectoris I25.10 Active 232563897717712 Problem CAD (coronary artery disease) I25.10 Active 33745117 Problem Panlobular emphysema J43.1 Active 9035470 Problem Type 2 diabetes mellitus with other circulatory complications E11.59 Active 18326097 Problem Type 2 diabetes mellitus with hyperglycemia E11.65 Active 595891397 Problem Simple chronic bronchitis J41.0 Active 21520793 Problem COPD exacerbation J44.1 Active 729370366 Problem Sleep apnea G47.30 Active 15900116 Problem Environmental allergies Z91.09 Active 923332749 Problem GERD (gastroesophageal reflux disease) K21.9 Active 057481148 Problem long term 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 Z79.4 Active 962757469 Problem Diabetes E11.9 Active 741881009 Problem COPD with acute exacerbation J44.1 Active 128840053 Problem 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 Active 973036833263 Problem Parkinson's disease (tremor, stiffness, slow motion, unstable posture ) G20 Active 02022349 Problem Alcoholism F10.20 Active 8839117 Problem Diarrhea R19.7 Active 22317262 Problem Neuropathy G62.9 Active 133055235 Problem Edema, unspecified type R60.9 Active 588017131 Problem Coronary artery disease involving wiyot coronary artery of wiyot heart without angina pectoris I25.10 Active 6754389015289 Problem 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 Active 09426201681644 Problem Open wound, lower leg, right, initial encounter S81.801A Active 439915368 ALLERGIES No Information ENCOUNTERS Encounter Location Date Diagnosis [facility] [id number] [place] [address]- 6816 Jul, [facility] [address] [address] June, BMI 45.0-49.9, adult Z68.42 and Simple chronic bronchitis J41.0 [place] [address] 09807- [address]89 June, [facility] [address] 02383- [address] May, HTN (hypertension) I10 and Type 2 diabetes mellitus with other circulatory complications E11.59 [place] [address] 92[address]- 1693 May, [place] [address] 17313- 4598 May, COPD exacerbation J44.1 [place] [address] 02856- 3968 Apr, Pure hypercholesterolemia E78.00 [place] [address] 60417- [address]1 Apr, [facility] [id number] [place] [address]40 -[address]77 Mar, Cough R05 ; COPD with acute exacerbation J44.1 and BMI 45.0 -49.9, adult Z68.42 [place] [id number] [place] [address] 78017- 9485 13 Mar, 2017 [place] [address] [address] Mar, [facility] [address] [place] [address] 02498- 8937 Feb, [facility] [id number] [place] [address] 79299- 9259 Feb, BMI 45.0-49.9, adult Z68.42 and Acute non-recurrent maxillary sinusitis J01.00 [facility] [id number] [place] [address] 05294- 7138 Feb, [facility] [id number] [place] [address] 39556- 3774 Feb, [place] [id number] [place] [address] 93033- 5603 Feb, GERD (gastroesophageal reflux disease) K21.9 [facility] [id number] [place] [address] 01227- 9480 Jan, Panlobular emphysema J43.1 ; Type 2 diabetes mellitus with hyperglycemia E11.65 and residential 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 Z79.4 [facility] [id number] [place] [address] 54313- 8459 Jan, [facility] [address] [place] [address] 92744 -7296 Dec, Chronic obstructive pulmonary disease with acute exacerbation J44.1 ; Cough R05 ; 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 ; Type 2 diabetes mellitus with other circulatory complications E11.59 ; residential 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 Z79.4 and BMI 45.0-49.[address], [address] [facility] [address] [address] Oct, [facility] [id number] [place] [address] 60604- 8875 Sep, [facility] [id number] [place] [address]26- 4575 Aug, [facility] [id number] [place] [address] 40411- 4133 May, [facility] [address] [address] May, [facility] [address] [place] [address] Apr, [place] [place] [address] [place] [address] Apr, [place] [place] [address] [place] [address] 67030- 6360 Apr, [facility] [place] [address] [place] [address] 91245- 8763 Apr, Type 2 diabetes mellitus with other [...] plaque I25.83 and Edema, unspecified type R60.[address] [facility] [address] [place] [address] [id number] Mar, COPD (chronic obstructive pulmonary disease) J44.9 ; Alcoholism F10.20 and 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 [facility] [address] [place] [address] [id number] Mar, Open wound T14.8 [place] [id number] [address] Mar, Environmental allergies Z91.09 ; Open wound, [...] and COPD (chronic obstructive pulmonary disease) J44.9 [place] [id number] [place] [address] 79786- 3196 Mar, [facility] [id number] [place] [address] 51329- 6920 Mar, [facility] [id number] [place] [address] 35603- 0573 Mar, [facility] [address] [place] [id number] Mar, Alcoholism F10.20 ; 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 ; COPD (chronic obstructive pulmonary disease) J44.9 and Sleep apnea G47.30 [place] [id number] [place] [address] 27385- 6966 Mar, [place] [id number] [place] [address] 31770- 0528 Mar, [place] [place] [id number] [place] [address] 92052- 0470 Feb, 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 ; GERD (gastroesophageal reflux disease) K21.9 ; Hypothyroid E03.9 ; Sleep apnea G47.30 ; Parkinson's disease (tremor, stiffness , slow motion, unstable posture) G20 ; CAD (coronary artery disease) I25.10 ; Edema, unspecified type R60.9 ; COPD (chronic obstructive pulmonary disease) J44.9 and Neuropathy G62.9 [place] [address] [place] [address] 40295- 7840 Jan, HTN (hypertension) I10 [place] [id number] [place] [address] 57117- 8277 Jan, COPD (chronic obstructive pulmonary disease) J44.9 ; Hypothyroid E03.9 ; Environmental allergies Z91.09 ; 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 ; Hypercholesterolemia E78.0 ; Sleep apnea G47.30 ; CAD (coronary artery disease) I25.10 ; HTN (hypertension ) I10 ; GERD (gastroesophageal reflux disease) K21.9 ; Anemia D64.9 and Edema, unspecified type R60.9 [place] [id number] [place] [address] 91633- 6184 Dec, [place] [id number] [place] [address] 62569- 4998 Dec, 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 ; GERD (gastroesophageal reflux disease) K21.9 ; HTN ( hypertension) I10 ; Hypothyroid E03.9 ; Environmental allergies Z91.09 ; Sleep apnea G47.30 ; CAD (coronary artery disease) I25.10 ; Hypercholesterolemia E78.0 and COPD (chronic obstructive pulmonary disease) J44.9 [place] [id number] [place] [address] 68496- 3274 Oct, [place] [id number] [place] [address] 56036- 1409 Aug, 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 ; GERD (gastroesophageal reflux disease) K21.9 ; Hypothyroid E03.9 ; Environmental allergies Z91.09 ; CAD (coronary artery disease) I25.10 ; Hypercholesterolemia E78.0 ; COPD (chronic obstructive pulmonary disease) J44.9 and Sleep apnea G47.30 [place] [id number] [place] [address] 61816- 8767 Jul, COPD (chronic obstructive pulmonary disease) J44.9 [place] [place] [id number] [place] [address] 28998- 6853 June, [place] [id number] [place] [address] 10502- 6955 May, [facility] [id number] [place] [address] 00855- 4649 Apr, COPD (chronic obstructive pulmonary disease) J44.9 ; Sleep apnea G47.30 ; HTN (hypertension) I10 ; Hypothyroid E03.9 ; Environmental allergies Z91.09 ; CAD (coronary artery disease) I25.10 ; Hypercholesterolemia E78.0 and 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 [id number] [place] [address] 22747- 0857 Apr, [facility] [id number] [place] [address] 63710- 0017 Mar, [facility] [address] [address]42- 1843 Mar, [facility] [id number] [place] [address] 38501- 6574 Feb, 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 [id number] [place] [address] 64621- 1168 Jan, [facility] [id number] [place] [address] 99228- 8708 Jan, [facility] [id number] [place] [address] 94582- 6666 Jan, [place] [place] [id number] [place] [address] 47686- 9988 Jan, Anemia D64.9 [facility] [id number] [place] [address] 55657- 6310 Jan, [facility] [id number] [place] [address] 28941- 3099 Jan, Type 2 diabetes mellitus with other [...] [facility] allergic reaction 03/2016 Hospitalization History [facility] spent 2 weeks 03/2016 Hospitalization History [facility]- Pneumonia, COPD with Acute Exacerbation 05/19/2017
--- OUTSIDE RECORDS SUMMARY | 2017-11-01 06:58 | XMS REPORT ---
Author Author ROCKY MORRIS Organization [facility] Address [address] [place] [address] Care Team Providers Care Core Shaper Name Role Phone ROCKY MORRIS Unavailable PROBLEMS Type Condition ICD9-CM Code PGE39-ON Code Onset Dates Condition Status SNOMED Code Problem Coronary atherosclerosis due to lipid rich plaque I25.83 Active 077254015568195 Problem Panlobular emphysema J43.1 Active 4168502 Problem Atherosclerotic heart disease of iliamna coronary artery without angina pectoris I25.10 Active 321509373936851 Problem Simple chronic bronchitis J41.0 Active 80238289 Problem Pure hypercholesterolemia E78.00 Active 626191205 Problem COPD with acute exacerbation J44.1 Active 307355347 Problem 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.4 Active 334219720 Problem Type 2 diabetes mellitus with hyperglycemia E11.65 Active 293821109 Problem 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 Active 320566108594 Problem Type 2 diabetes mellitus with other circulatory complications E11.59 Active 61372359 Problem HTN (hypertension) I10 Active 36707753 Problem CAD (coronary artery disease) I25.10 Active 62611908 Problem Hypothyroid E03.9 Active 56052128 Problem COPD (chronic obstructive pulmonary disease) J44.9 Active 29173090 Problem Environmental allergies Z91.09 Active 048243889 Problem Neuropathy G62.9 Active 868447045 Problem 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 22745701045617 Problem 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 Active 94826286682346 Problem Sleep apnea G47.30 Active 22889133 Problem Edema, unspecified type R60.9 Active 524339187 ALLERGIES Substance Reaction Event Type Date Status Gabapentin Unknown Drug Allergy Feb, Active Cozaar anaphylaxis Drug Allergy Feb, Active Benazepril HCl anaphylaxis Drug Allergy Feb, Active ENCOUNTERS Encounter Location Date Diagnosis [facility] [address] [facility] [id number] [address] Aug, [facility] [address] [address] Jul, Alcoholism F10.20 ; Parkinson's disease (tremor, stiffness, slow motion, unstable posture) G20 and COPD (chronic obstructive pulmonary disease) J44.9 [facility] [address] [address] June, BMI 45.0-49.9, adult Z68.42 and Simple chronic bronchitis J41.0 [facility] [address] [address] June, [place] [address] [address] May, HTN (hypertension) I10 and Type 2 diabetes mellitus with other circulatory complications E11.59 [facility] [address] [address] May, [place] [address] [address] May, COPD exacerbation J44.1 [place] [address] [address] Apr, Pure hypercholesterolemia E78.00 [place] [address] [address] Apr, [facility] [address] [address] Mar, Cough R05 ; COPD with acute exacerbation J44.1 and BMI 45.0 -49.9, adult Z68.42 [place] [address] [address] Mar, [facility] [address] [address] Mar, [facility] [address] [address] Feb, [facility] [address] [address] Feb, BMI 45.0-49.9, adult Z68.42 and Acute non-recurrent maxillary sinusitis J01.00 [facility] [address], [place] [address] Feb, [facility] [address] [place] [id number] [place] [address] Feb, [facility] [address] [place] [id number] [place] [address] Feb, GERD (gastroesophageal reflux disease) K21.9 [facility] [place] [address] [place] [id number] [place] [address] Jan, Panlobular emphysema J43.1 ; Type 2 diabetes mellitus with hyperglycemia E11.65 and [facility] 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 Z79.4 [facility] [address], [place] [address] Jan, [facility] [address] [place] [address] Dec, Chronic obstructive pulmonary disease with acute exacerbation J44.1 ; Cough R05 ; 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 ; Type 2 diabetes mellitus with other circulatory complications E11.59 ; [facility] 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 Z79.4 and BMI 45.0-49.9, adult Z68.42 [facility] [address] [address] Oct, [facility] [address] [place] [id number] [place] [address] Sep, [facility] [address] [place] [id number] [place] [address] Aug, [facility] [address] [address] May, [facility] [address] [address] May, [place] [address], [place] [address] Apr, [place] [address] [address] Apr, [place] [address] [place] [address] Apr, [place] [address] [place] [address] Apr, 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 ; GERD (gastroesophageal reflux disease) K21.9 ; HTN ( hypertension) I10 ; Environmental allergies Z91.09 ; COPD (chronic obstructive pulmonary disease) J44.9 ; Sleep apnea G47.30 ; Hypothyroid E03.9 ; Neuropathy G62.9 ; Pure hypercholesterolemia E78.00 ; Atherosclerotic heart disease of iliamna coronary artery without angina pectoris I25.10 ; Coronary atherosclerosis due to lipid rich plaque I25.83 and Edema, unspecified type R60.9 [facility] [address] [place] [id number] Mar, COPD (chronic obstructive pulmonary disease) J44.9 ; Alcoholism F10.20 and 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 [facility] [address] [place] [id number] Mar, Open wound T14.8 [place] [address] [place] [id number] [address] Mar, Environmental allergies Z91.09 ; Open wound, lower leg, right, initial encounter S81.801A ; GERD (gastroesophageal reflux disease) K21.9 ; Hypothyroid E03.9 ; Hypercholesterolemia E78.0 ; Sleep apnea G47.30 ; Neuropathy G62.9 ; Edema, unspecified type R60.9 ; 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 ; Coronary artery disease involving iliamna coronary artery of iliamna heart without angina pectoris I25.10 ; 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 and COPD (chronic obstructive pulmonary disease) J44.9 [place] [address] [place] [address] Mar, [place] [id number] [place] [address] Mar, [place] [id number] [place] [address] Mar, [facility] [address] [place] [id number] Mar, Alcoholism F10.20 ; 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 ; COPD (chronic obstructive pulmonary disease) J44.9 and Sleep apnea G47.30 [place] [id number] [place] [address] Mar, [place] [id number] [place] [address] Mar, [place] [id number] [place] [address] Feb, 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 ; GERD (gastroesophageal reflux disease) K21.9 ; Hypothyroid E03.9 ; Sleep apnea G47.30 ; Parkinson's disease (tremor, stiffness , slow motion, unstable posture) G20 ; CAD (coronary artery disease) I25.10 ; Edema, unspecified type R60.9 ; COPD (chronic obstructive pulmonary disease) J44.9 and Neuropathy G62.9 [address] [place] [address] Jan, HTN (hypertension) I10 [place] [id number] [place] [address] Jan, COPD (chronic obstructive pulmonary disease) J44.9 ; Hypothyroid E03.9 ; Environmental allergies Z91.09 ; 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 ; Hypercholesterolemia E78.0 ; Sleep apnea G47.30 ; CAD (coronary artery disease) I25.10 ; HTN (hypertension ) I10 ; GERD (gastroesophageal reflux disease) K21.9 ; Anemia D64.9 and Edema, unspecified type R60.9 [facility] [place] [address] [place] [id number] [place] [address] Dec, [facility] [address] [place] [id number] [place] [address] Dec, 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 ; GERD (gastroesophageal reflux disease) K21.9 ; HTN ( hypertension) I10 ; Hypothyroid E03.9 ; Environmental allergies Z91.09 ; Sleep apnea G47.30 ; CAD (coronary artery disease) I25.10 ; Hypercholesterolemia E78.0 and COPD (chronic obstructive pulmonary disease) J44.9 [place] [address] [place] [id number] [place] [address] Oct, [place] [address] [address] Aug, 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 ; GERD (gastroesophageal reflux disease) K21.9 ; Hypothyroid E03.9 ; Environmental allergies Z91.09 ; CAD (coronary artery disease) I25.10 ; Hypercholesterolemia E78.0 ; COPD (chronic obstructive pulmonary disease) J44.9 and Sleep apnea G47.30 [facility] [address] [place] [id number] [place] [address] Jul, COPD (chronic obstructive pulmonary disease) J44.9 [facility] [facility] [address] [place] [id number] [place] [address] June, [facility] [facility] [address] [place] [id number] [place] [address] May, [place] [address] [address] Apr, COPD (chronic obstructive pulmonary disease) J44.9 ; Sleep apnea G47.30 ; HTN (hypertension) I10 ; Hypothyroid E03.9 ; Environmental allergies Z91.09 ; CAD (coronary artery disease) I25.10 ; Hypercholesterolemia E78.0 and 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 [facility] [address] [address] Apr, [facility] [address] [place] [address] Mar, [facility] [address] [place] [id number] [place] [address] Mar, [facility] [address] [id number] [address] Feb, [facility] [address] [place] [id number] [place] [address] Feb, 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 ; Hypothyroid E03.9 ; HTN (hypertension) I10 ; COPD ( chronic obstructive pulmonary disease) J44.9 ; Sleep apnea G47.30 ; Hypercholesterolemia E78.0 ; Environmental allergies Z91.09 ; Diarrhea R19.7 and GERD (gastroesophageal reflux disease) K21.9 [facility] [address] [address] Feb, [facility] [id number] [place] [address] Jan, [facility] [id number], [place] [address] Jan, [facility] [address] [place] [address] Jan, [facility] [address], [place] [address] Jan, Anemia D64.9 [facility] [id number] [address] Jan, [facility] [address] [place] [address] Jan, 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 Has had antibiotics and fells like he has a sinus infection. States it is dripping into lungs and states he gets pneumonia easily. Wants to have "strong" Antibiotics. [facility] VITAL SIGNS Height 72.0 in 2017-02-21 Weight 354.0 lbs 2017-02-21 Temperature 98.0 degrees Fahrenheit 2017-02-21 Heart Rate 92 bpm 2017-02-21 Respiratory Rate 30 2017-02-21 BMI 48.01 kg/m2 2017-02-21 Blood pressure systolic 148 mmHg 2017-02-21 Blood pressure diastolic 84 mmHg 2017-02-21 MEDICATIONS Medication Instructions Dosage Frequency Start Date End Date Duration Status Plavix 75 MG Orally Once a day 1 tablet 24h Not-Taking Levothyroxine Sodium 50 MCG Orally Once a day 1 tablet on an empty stomach in the morning 24h 30 days Active Atorvastatin Calcium 40 MG Orally Once a day 1 tablet 24h 30 Active Metoprolol Tartrate 50 mg Orally Once a day 2 tabs 24h Active Omeprazole 40 MG TAKE ONE CAPSULE BY MOUTH ONCE DAILY 30 Active Nitrostat 0.4 MG Active Advair Diskus 250-50 MCG/DOSE INHALE ONE PUFF BY MOUTH TWICE DAILY 30 Active Spiriva HandiHaler 18 MCG INHALE CONTENTS OF ONE CAPSULE BY MOUTH ONCE DAILY (TWO INHALATIONS PER ONE CAPSULE) 30 Active Levemir FlexTouch 100 UNIT/ML Subcutaneous 2 times a day 50 units 12h 30 Active Fish Oil Active Albuterol Sulfate (2.5 MG/3ML) 0.083% Inhalation every 4 hours prn 3 ml 15 Active Metformin HCl 1000 MG Orally Twice a day 1 tablet with meals 12h 30 Active NovoLog Flexpen 100 UNIT/ML Subcutaneous 3 times a day INJECT 50 UNITS SUBCUTANEOUSLY THREE TIMES DAILY 8h 30 Active Levaquin 500 mg Orally Once a day 1 tablet 24h Feb, Feb, 10 day(s) Active Amlodipine Besylate 10 MG Orally Once a day 1 tablet 24h Active Guaifenesin 200 MG Orally every 4 hrs 1 tablet as needed 4h Active Oxygen 3 L by inhalation route continious 1 puff Apr, Active Hydrochlorothiazide 25 MG Orally Once a day 1 tablet 24h 30 Active Bumex 2 MG Orally Once a day 1 tablet 24h 30 Active Levothyroxine Sodium 150 MCG Orally Once a day 2 tab 24h Active Sarah Allergy 180 MG Orally Once a day 1 tablet as needed 24h Active RESULTS No Results PROCEDURES Procedure Date Ordered Result Body Site SOLUMEDROL (UP TO 125 MG) Feb 21, 2017 THER/PROPH/DIAG INJ, SC/IM Feb 21, 2017 INSTRUCTIONS MEDICATIONS ADMINISTERED No Known Medications [...] [facility] allergic reaction 03/2016 Hospitalization History [facility] spent 2 weeks 03/2016 Hospitalization History [facility]- Pneumonia, COPD with Acute Exacerbation 05/19/2017
--- OUTSIDE RECORDS SUMMARY | 2017-11-01 06:58 | XMS REPORT ---
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 74059782178601 Problem Hypothyroid E03.9 Active 55883322 Problem COPD (chronic obstructive pulmonary disease) J44.9 Active 57146686 Problem Coronary atherosclerosis due to lipid rich plaque I25.83 Active 868126020344762 Problem HTN (hypertension) I10 Active 03692139 Problem Atherosclerotic heart disease of [place] coronary artery without angina pectoris I25.10 Active 793876904393461 Problem CAD (coronary artery disease) I25.10 Active 76816611 Problem Panlobular emphysema J43.1 Active 1041387 Problem Type 2 diabetes mellitus with other circulatory complications E11.59 Active 04372192 Problem Type 2 diabetes mellitus with hyperglycemia E11.65 Active 372131869 Problem Simple chronic bronchitis J41.0 Active 83931390 Problem COPD exacerbation J44.1 Active 626235116 Problem Sleep apnea G47.30 Active 56367476 Problem Environmental allergies Z91.09 Active 701637735 Problem GERD (gastroesophageal reflux disease) K21.9 Active 007654171 Problem 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.4 Active 171501907 Problem Diabetes E11.9 Active 269380804 Problem COPD with acute exacerbation J44.1 Active 558709750 Problem 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 Active 963757539081 Problem Parkinson's disease (tremor, stiffness, slow motion, unstable posture ) G20 Active 04187531 Problem Alcoholism F10.20 Active 5638671 Problem Diarrhea R19.7 Active 12610769 Problem Neuropathy G62.9 Active 822792378 Problem Edema, unspecified type R60.9 Active 919726310 Problem Coronary artery disease involving [place] coronary artery of [place] heart without angina pectoris I25.10 Active 7946680690290 Problem 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 Active 73756511428187 Problem Open wound, lower leg, right, initial encounter S81.801A Active 401057697 ALLERGIES No Information ENCOUNTERS Encounter Location Date Diagnosis [place] [id number] [place] [address]13[address]505 Jul, [place] [address] [address] June, BMI 45.0-49.9, adult Z68.42 and Simple chronic bronchitis J41.0 [place] [address] 12[address]- [address] June, [place] [address] 8[address]- 1601 May, HTN (hypertension) I10 and Type 2 diabetes mellitus with other circulatory complications E11.59 [place] [address] 224[address]- 58[address] May, [place] [address] 60841- 3970 May, COPD exacerbation J44.1 [place] [address] 01177- 5875 Apr, Pure hypercholesterolemia E78.00 [place] [address] 18283- 3565 Apr, [facility] [id number] [place] [address]88 -2857 Mar, Cough R05 ; COPD with acute exacerbation J44.1 and BMI 45.0 -49.9, adult Z68.42 [place] [id number] [place] [address] 12980- 7484 13 Mar, 2017 [place] [address] 93[address] Mar, [facility] [address] [place] [address] 08247- 8500 Feb, [facility] [id number] [place] [address] 93283- 8361 Feb, BMI 45.0-49.9, adult Z68.42 and Acute non-recurrent maxillary sinusitis J01.00 [facility] [id number] [place] [address] 51837- 5362 Feb, [facility] [id number] [place] [address] 48153- 0079 Feb, [place] [id number] [place] [address] 70399- 1458 Feb, GERD (gastroesophageal reflux disease) K21.9 [place] [id number] [place] [address] 83895- 3526 Jan, Panlobular emphysema J43.1 ; Type 2 diabetes mellitus with hyperglycemia E11.65 and intermediate 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 Z79.4 [facility] [id number] [place] [address] 88386- 1697 Jan, [facility] [address] [place] [address] 39786 -4631 Dec, Chronic obstructive pulmonary disease with acute exacerbation J44.1 ; Cough R05 ; 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 ; Type 2 diabetes mellitus with other circulatory complications E11.59 ; intermediate 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 Z79.4 and BMI 45.0-49.[address], [address] [facility] [address] [address] Oct, [facility] [id number] [place] [address] 18863- 3083 Sep, [facility] [id number] [place] [address] 81196- 7979 Aug, [facility] [id number] [place] [address] 95147- 5900 May, [facility] [address] [address] May, 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 ; GERD (gastroesophageal reflux disease) K21.9 ; HTN ( hypertension) I10 ; Environmental allergies Z91.09 ; COPD (chronic obstructive pulmonary disease) J44.9 ; Sleep apnea G47.30 ; Hypothyroid E03.9 ; Neuropathy G62.9 ; Pure hypercholesterolemia E78.00 ; Atherosclerotic heart disease of [place] coronary artery without angina pectoris I25.10 ; Coronary atherosclerosis due to lipid rich plaque I25.83 and Edema, unspecified type R60.[address] [facility] [address] [place] [id number] Mar, COPD (chronic obstructive pulmonary disease) J44.9 ; Alcoholism F10.20 and 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 [facility] [address] [place] [id number] Mar, Open wound T14.8 [place] [id number] [address] Mar, Environmental allergies Z91.09 ; Open wound, lower leg, right, initial encounter S81.801A ; GERD (gastroesophageal reflux disease) K21.9 ; Hypothyroid E03.9 ; Hypercholesterolemia E78.0 ; Sleep apnea G47.30 ; Neuropathy G62.9 ; Edema, unspecified type R60.9 ; 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 ; Coronary artery disease involving [place] coronary artery of [place] heart without angina pectoris I25.10 ; 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 and COPD (chronic obstructive pulmonary disease) J44.9 [place] [id number] [place] [address] 31255- 4859 Mar, [place] [id number] [place] [address] 81492- 8724 Mar, [place] [id number] [place] [address] 16476- 3867 Mar, [facility] [address] [place] [id number] Mar, Alcoholism F10.20 ; 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 ; COPD (chronic obstructive pulmonary disease) J44.9 and Sleep apnea G47.30 [place] [id number] [place] [address] 69134- 1630 Mar, [place] [id number] [place] [address] 31677- 5174 Mar, [place] [id number] [place] [address] 97283- 0648 Feb, 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 ; GERD (gastroesophageal reflux disease) K21.9 ; Hypothyroid E03.9 ; Sleep apnea G47.30 ; Parkinson's disease (tremor, stiffness , slow motion, unstable posture) G20 ; CAD (coronary artery disease) I25.10 ; Edema, unspecified type R60.9 ; COPD (chronic obstructive pulmonary disease) J44.9 and Neuropathy G62.9 [place] [address] [place] [address] 39064- 6850 Jan, HTN (hypertension) I10 [place] [id number] [place] [address] 46327- 3159 Jan, COPD (chronic obstructive pulmonary disease) J44.9 ; Hypothyroid E03.9 ; Environmental allergies Z91.09 ; 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 ; Hypercholesterolemia E78.0 ; Sleep apnea G47.30 ; CAD (coronary artery disease) I25.10 ; HTN (hypertension ) I10 ; GERD (gastroesophageal reflux disease) K21.9 ; Anemia D64.9 and Edema, unspecified type R60.9 [place] [id number] [place] [address] 52585- 3606 Dec, [place] [id number] [place] [address] 01424- 0961 Dec, 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 ; GERD (gastroesophageal reflux disease) K21.9 ; HTN ( hypertension) I10 ; Hypothyroid E03.9 ; Environmental allergies Z91.09 ; Sleep apnea G47.30 ; CAD (coronary artery disease) I25.10 ; Hypercholesterolemia E78.0 and COPD (chronic obstructive pulmonary disease) J44.9 [place] [id number] [place] [address] 48356- 1234 Oct, [place] [id number] [place] [address] 76516- 9219 Aug, 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 ; GERD (gastroesophageal reflux disease) K21.9 ; Hypothyroid E03.9 ; Environmental allergies Z91.09 ; CAD (coronary artery disease) I25.10 ; Hypercholesterolemia E78.0 ; COPD (chronic obstructive pulmonary disease) J44.9 and Sleep apnea G47.30 [place] [id number] [place] [address] 19980- 5440 Jul, COPD (chronic obstructive pulmonary disease) J44.9 [place] [id number] [place] [address] 53366- 8236 June, [place] [id number] [place] [address] 86603- 8721 May, [place] [id number] [place] [address] 08266- 5368 Apr, COPD (chronic obstructive pulmonary disease) J44.9 ; Sleep apnea G47.30 ; HTN (hypertension) I10 ; Hypothyroid E03.9 ; Environmental allergies Z91.09 ; CAD (coronary artery disease) I25.10 ; Hypercholesterolemia E78.0 and 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 [id number] [place] [address] 27494- 3163 Apr, [facility] [id number] [place] [address] 25385- 8741 Mar, [facility] [address] [address]- 1949 Mar, [facility] [id number] [place] [address] 46820- 2758 Feb, 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 [id number] [place] [address] 89524- 6143 Jan, [facility] [id number] [place] [address] 83676- 3463 Jan, [facility] [id number] [place] [address] 26536- 6749 Jan, [place] [id number] [place] [address] 59729- 9740 Jan, Anemia D64.9 [facility] [id number] [place] [address] 81176- 4145 Jan, 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 ; Hypothyroid E03.9 ; HTN (hypertension) I10 ; COPD ( chronic obstructive pulmonary disease) J44.9 ; Sleep apnea G47.30 ; Hypercholesterolemia E78.0 ; CAD (coronary artery disease) I25.10 and Environmental allergies Z91.09 IMMUNIZATIONS No Known Immunizations SOCIAL HISTORY Never Assessed REASON FOR VISIT levothyroxine note PLAN OF CARE VITAL SIGNS MEDICATIONS Medication Instructions Dosage Frequency Start Date End Date Duration Status Levothyroxine Sodium 50 MCG Orally Once a day 1 tablet on an empty stomach in the morning 24h 30 days Active Levothyroxine Sodium 150 MCG Orally Once a day 2 tab 24h Active RESULTS No Results PROCEDURES No Known [...] Double pneumonia 07/2015 Hospitalization History [facility] allergic reaction 03/2016 Hospitalization History [facility] spent 2 weeks 03/2016 Hospitalization History [facility]- Pneumonia, COPD with Acute Exacerbation 05/19/2017
--- OUTSIDE RECORDS SUMMARY | 2017-11-01 06:59 | XMS REPORT ---
Author Author JAYCOB CM [facility] Address [address] [place] [address] Care Team Providers Care Monogram Maker Name Role Phone JAYCOB CM Unavailable PROBLEMS Type Condition ICD9-CM Code EYI52-SS Code Onset Dates Condition Status SNOMED Code Problem Pure hypercholesterolemia E78.00 Active 313595815 Problem Hypothyroid E03.9 Active 97461683 Problem COPD (chronic obstructive pulmonary disease) J44.9 Active 97848075 Problem Open wound, lower leg, right, initial encounter S81.801A Active 216493203 Problem HTN (hypertension) I10 Active 14586699 Problem Coronary atherosclerosis due to lipid rich plaque I25.83 Active 415482667157959 Problem CAD (coronary artery disease) I25.10 Active 11573265 Problem Atherosclerotic heart disease of [place] coronary artery without angina pectoris I25.10 Active 338019479087871 Problem Type 2 diabetes mellitus with hyperglycemia E11.65 Active 014430274 Problem Panlobular emphysema J43.1 Active 7444075 Problem COPD exacerbation J44.1 Active 149203972 Problem COPD with acute exacerbation J44.1 Active 066052188 Problem Environmental allergies Z91.09 Active 101583309 Problem 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 51402857926031 Problem GERD (gastroesophageal reflux disease) K21.9 Active 344369299 Problem detention 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 Z79.4 Active 188175462 Problem Type 2 diabetes mellitus with other circulatory complications E11.59 Active 46808222 Problem Diabetes E11.9 Active 072916255 Problem 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 Active 745066504926 Problem Neuropathy G62.9 Active 821715142 Problem Parkinson's disease (tremor, stiffness, slow motion, unstable posture ) G20 Active 02185141 Problem Sleep apnea G47.30 Active 83423410 Problem Diarrhea R19.7 Active 34231703 Problem Coronary artery disease involving [place] coronary artery of [place] heart without angina pectoris I25.10 Active 9241499623085 Problem 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 Active 92692800671129 Problem Alcoholism F10.20 Active 4967087 Problem Edema, unspecified type R60.9 Active 120853974 ALLERGIES No Information ENCOUNTERS Encounter Location Date Diagnosis [facility], [place] [id number] [place] [address] June, [facility], [place] [address] [address] May, HTN (hypertension) I10 and Type 2 diabetes mellitus with other circulatory complications E11.59 [place] [address] [address] May, [place] [address] [address] May, COPD exacerbation J44.1 [place] [address] [address] Apr, Pure hypercholesterolemia E78.00 [place] [address] [address] Apr, [facility] [address] [address] Mar, Cough R05 ; COPD with acute exacerbation J44.1 and BMI 45.0 -49.9, adult Z68.42 [place] [address] [address] Mar, [facility], [place] [id number] [place] [address]- 29[address] Mar, [place] [address] [address] Feb, [facility], [place] [address] [address] Feb, BMI 45.0-49.9, adult Z68.42 and Acute non-recurrent maxillary sinusitis J01.00 [facility], [place] [address] [address] Feb, [facility], [place] [id number] [place] [address]- [address]99 Feb, [facility], [place] [address] [address] Feb, GERD (gastroesophageal reflux disease) K21.9 [facility], [place] [id number] [place] [address]47- [address] Jan, Panlobular emphysema J43.1 ; Type 2 diabetes mellitus with hyperglycemia E11.65 and 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.4 [place] [id number] [place] [address]- [address] Jan, [facility] [address] [place] [address] Dec, Chronic obstructive pulmonary disease with acute exacerbation J44.1 ; Cough R05 ; 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 ; Type 2 diabetes mellitus with other circulatory complications E11.59 ; 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.4 and BMI 45.0-49.9, adult Z68.42 [facility], [place] [address] [place] [address]208- [address] Oct, [facility], [place] [address] [address] Sep, [facility], [place] [id number] [place] [address] 38815- 4260 Aug, [facility], [place] [address] [address] May, [facility], [place] [id number] [place] [address] 07692- 1545 May, [facility], [place] [address] [address] Apr, [facility], [place] [id number] [place] [address]45- [address] Apr, [place] [id number] [place] [address]51- 3[address] Apr, [place] [id number] [place] [address] 45508- 67[address] Apr, 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 ; GERD (gastroesophageal reflux disease) K21.9 ; HTN ( hypertension) I10 ; Environmental allergies Z91.09 ; COPD (chronic obstructive pulmonary disease) J44.9 ; Sleep apnea G47.30 ; Hypothyroid E03.9 ; Neuropathy G62.9 ; Pure hypercholesterolemia E78.00 ; Atherosclerotic heart disease of [place] coronary artery without angina pectoris I25.10 ; Coronary atherosclerosis due to lipid rich plaque I25.83 and Edema, unspecified type R60.[address] [facility] [address] [place] [id number] Mar, COPD (chronic obstructive pulmonary disease) J44.9 ; Alcoholism F10.20 and 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 [facility] [address] [place] [id number] Mar, Open wound T14.8 [place] [id number] [place] [address]- [address] Mar, Environmental allergies Z91.09 ; Open wound, lower leg, right, initial encounter S81.801A ; GERD (gastroesophageal reflux disease) K21.9 ; Hypothyroid E03.9 ; Hypercholesterolemia E78.0 ; Sleep apnea G47.30 ; Neuropathy G62.9 ; Edema, unspecified type R60.9 ; 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 ; Coronary artery disease involving [place] coronary artery of [place] heart without angina pectoris I25.10 ; 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 and COPD (chronic obstructive pulmonary disease) J44.9 [place] [address] [place] [address]- [address] Mar, [place] [id number] [place] [address] 55[address]- [address] Mar, [place] [address] [address] Mar, [facility] [address] [id number] Mar, Alcoholism F10.20 ; 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 ; COPD (chronic obstructive pulmonary disease) J44.9 and Sleep apnea G47.30 [place] [id number] [place] [address] 26117- [address] Mar, [place] [id number] [place] [address] 41182- [address] Mar, [place] [id number] [place] [address] 52752- 0558 Feb, 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 ; GERD (gastroesophageal reflux disease) K21.9 ; Hypothyroid E03.9 ; Sleep apnea G47.30 ; Parkinson's disease (tremor, stiffness , slow motion, unstable posture) G20 ; CAD (coronary artery disease) I25.10 ; Edema, unspecified type R60.9 ; COPD (chronic obstructive pulmonary disease) J44.9 and Neuropathy G62.9 [place] [id number] [place] [address]- [address] Jan, HTN (hypertension) I10 [place] [id number] [place] [address] 47622- [address] Jan, COPD (chronic obstructive pulmonary disease) J44.9 ; Hypothyroid E03.9 ; Environmental allergies Z91.09 ; 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 ; Hypercholesterolemia E78.0 ; Sleep apnea G47.30 ; CAD (coronary artery disease) I25.10 ; HTN (hypertension ) I10 ; GERD (gastroesophageal reflux disease) K21.9 ; Anemia D64.9 and Edema, unspecified type R60.9 [place] [id number] [place] [address] Dec, [address] [place] [address] Dec, 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 ; GERD (gastroesophageal reflux disease) K21.9 ; HTN ( hypertension) I10 ; Hypothyroid E03.9 ; Environmental allergies Z91.09 ; Sleep apnea G47.30 ; CAD (coronary artery disease) I25.10 ; Hypercholesterolemia E78.0 and COPD (chronic obstructive pulmonary disease) J44.9 [place] [address] [address] Oct, [place] [address] [address] Aug, 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 ; GERD (gastroesophageal reflux disease) K21.9 ; Hypothyroid E03.9 ; Environmental allergies Z91.09 ; CAD (coronary artery disease) I25.10 ; Hypercholesterolemia E78.0 ; COPD (chronic obstructive pulmonary disease) J44.9 and Sleep apnea G47.30 [place] [address] [address] Jul, COPD (chronic obstructive pulmonary disease) J44.9 [place] [address] [address]- [address] June, [place] [address] [address] May, [place] [address] 32388- [address] Apr, COPD (chronic obstructive pulmonary disease) J44.9 ; Sleep apnea G47.30 ; HTN (hypertension) I10 ; Hypothyroid E03.9 ; Environmental allergies Z91.09 ; CAD (coronary artery disease) I25.10 ; Hypercholesterolemia E78.0 and 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 [place] [id number] [place] [address] 20315- 3089 Apr, [place] [address] 555[address]- [address] Mar, [facility], [place] [address] [address] Mar, [place] [id number] [place] [address] 55753- 6479 Feb, [place] [id number] [place] [address] 85142- [address] Feb, 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 ; Hypothyroid E03.9 ; HTN (hypertension) I10 ; COPD ( chronic obstructive pulmonary disease) J44.9 ; Sleep apnea G47.30 ; Hypercholesterolemia E78.0 ; Environmental allergies Z91.09 ; Diarrhea R19.7 and GERD (gastroesophageal reflux disease) K21.9 [place] [id number] [place] [address] 23290- 4587 Feb, [place] [id number] [place] [address] 32643- 4227 Jan, [place] [id number] [place] [address] 30391- 3427 Jan, [place] [id number] [place] [address]- [address] Jan, [place] [id number] [place] [address] 62352- 8882 Jan, Anemia D64.9 [place] [id number] [place] [address] 95179- 1454 Jan, [place] [id number] [place] [address] 93393- 0959 Jan, 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 ; Hypothyroid E03.9 ; HTN (hypertension) I10 ; COPD ( chronic obstructive pulmonary disease) J44.9 ; Sleep apnea G47.30 ; Hypercholesterolemia E78.0 ; CAD (coronary artery disease) I25.10 and Environmental allergies Z91.09 IMMUNIZATIONS No Known Immunizations SOCIAL HISTORY Never Assessed REASON FOR VISIT Hydrocodone 11/03 PLAN OF CARE VITAL SIGNS MEDICATIONS Medication Instructions Dosage Frequency Start Date End Date Duration Status Hydrocodone-Acetaminophen 7.5-325 MG Orally 3 times a day PRN 1 tablet as needed Oct, Active RESULTS No Results PROCEDURES No Known [...] wrap Hospitalization History lung infection at [facility] 09/2014 Hospitalization History double pneumonia 04/2015 Hospitalization History Double pneumonia 07/2015 Hospitalization History [facility] [place] allergic reaction 03/2016 Hospitalization History [facility] spent 2 weeks 03/2016 Hospitalization History [facility]- Pneumonia, COPD with Acute Exacerbation 05/19/2017
--- OUTSIDE RECORDS SUMMARY | 2017-11-01 06:59 | XMS REPORT ---
Author Author OSITO Locke Organization [facility] Address [address] [place] [address] Care Team Providers Care Fiberglass Quality Technician Name Role Phone OSITO Locke Unavailable PROBLEMS Type Condition ICD9-CM Code EFG15-NK Code Onset Dates Condition Status SNOMED Code Problem Pure hypercholesterolemia E78.00 Active 552979773 Problem Hypothyroid E03.9 Active 61075962 Problem COPD (chronic obstructive pulmonary disease) J44.9 Active 38415879 Problem Open wound, lower leg, right, initial encounter S81.801A Active 496443946 Problem HTN (hypertension) I10 Active 56127383 Problem Coronary atherosclerosis due to lipid rich plaque I25.83 Active 173306316093970 Problem CAD (coronary artery disease) I25.10 Active 12987169 Problem Atherosclerotic heart disease of [place] coronary artery without angina pectoris I25.10 Active 297396957639682 Problem Type 2 diabetes mellitus with hyperglycemia E11.65 Active 647659501 Problem Panlobular emphysema J43.1 Active 6300733 Problem COPD exacerbation J44.1 Active 584377552 Problem COPD with acute exacerbation J44.1 Active 836313503 Problem Environmental allergies Z91.09 Active 436236276 Problem 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 83565895912946 Problem GERD (gastroesophageal reflux disease) K21.9 Active 114334948 Problem termite helper 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 Z79.4 Active 866023655 Problem Type 2 diabetes mellitus with other circulatory complications E11.59 Active 93943150 Problem Diabetes E11.9 Active 181254229 Problem 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 Active 452700810133 Problem Neuropathy G62.9 Active 043137021 Problem Parkinson's disease (tremor, stiffness, slow motion, unstable posture ) G20 Active 60991558 Problem Sleep apnea G47.30 Active 75454341 Problem Diarrhea R19.7 Active 88874266 Problem Coronary artery disease involving [place] coronary artery of [place] heart without angina pectoris I25.10 Active 9833048496879 Problem 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 Active 63661091521841 Problem Alcoholism F10.20 Active 0803229 Problem Edema, unspecified type R60.9 Active 986324244 ALLERGIES No Information ENCOUNTERS Encounter Location Date Diagnosis [facility] [id number] [place] [address]78- [phone] May, [facility] [address] [address] May, COPD exacerbation J44.1 [place] [address]- [address] Apr, Pure hypercholesterolemia E78.00 [facility] [address] [address] Apr, [facility] [address] [address] Mar, Cough R05 ; COPD with acute exacerbation J44.1 and BMI 45.0 -49.9, adult Z68.42 [place] [address] 25[address]- [address] Mar, [facility] [id number] [place] [address] 84779- 9501 Mar, [place] [id number] [place] [address]99- 1990 Feb, [facility] [address] [address] Feb, BMI 45.0-49.9, adult Z68.42 and Acute non-recurrent maxillary sinusitis J01.00 [facility] [id number] [place] [address] 13559- 0167 Feb, [facility] [id number] [place] [address] 67852- 5238 Feb, [facility] [id number] [place] [address] [phone] Feb, GERD (gastroesophageal reflux disease) K21.9 [facility] [id number] [place] [address] 22773- 6107 Jan, Panlobular emphysema J43.1 ; Type 2 diabetes mellitus with hyperglycemia E11.65 and termite helper 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 Z79.4 [facility] [id number] [place] [address] 80040- 1567 Jan, [facility] [id number] [place] [address]64 -[address]65 Dec, Chronic obstructive pulmonary disease with acute exacerbation J44.1 ; Cough R05 ; 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 ; Type 2 diabetes mellitus with other circulatory complications E11.59 ; termite helper 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 Z79.4 and BMI 45.0-49.9, adult Z68.42 [facility] [id number] [place] [address] 12793- 1775 Oct, [facility] [id number] [place] [address] 50792- 7575 Sep, [facility] [id number] [place] [address] 58763- 9600 Aug, [facility] [id number] [place] [address] 98487- 4147 May, [facility] [id number] [place] [address] 64840- 0246 May, [facility] [id number] [place] [address] 24224- 0793 Apr, [facility] [id number] [place] [address] 47028- 7916 Apr, [facility] [id number] [place] [address] 84327- 4456 Apr, [facility] [id number] [place] [address] 21017- 2761 Apr, 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 ; GERD (gastroesophageal reflux disease) K21.9 ; HTN ( hypertension) I10 ; Environmental allergies Z91.09 ; COPD (chronic obstructive pulmonary disease) J44.9 ; Sleep apnea G47.30 ; Hypothyroid E03.9 ; Neuropathy G62.9 ; Pure hypercholesterolemia E78.00 ; Atherosclerotic heart disease of [place] coronary artery without angina pectoris I25.10 ; Coronary atherosclerosis due to lipid rich plaque I25.83 and Edema, unspecified type R60.[address] [facility] [address] [place] [address] [id number] Mar, COPD (chronic obstructive pulmonary disease) J44.9 ; Alcoholism F10.20 and 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 [facility] [address] [place] [address] [id number] Mar, Open wound T14.8 [place] [id number] [place] [address] 36463- 8858 Mar, Environmental allergies Z91.09 ; Open wound, lower leg, right, initial encounter S81.801A ; GERD (gastroesophageal reflux disease) K21.9 ; Hypothyroid E03.9 ; Hypercholesterolemia E78.0 ; Sleep apnea G47.30 ; Neuropathy G62.9 ; Edema, unspecified type R60.9 ; 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 ; Coronary artery disease involving [place] coronary artery of [place] heart without angina pectoris I25.10 ; 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 and COPD (chronic obstructive pulmonary disease) J44.9 [place] [address] [place] [address] 53461- 4693 Mar, [place] [address] 93993- 3110 Mar, [place] [id number] [place] [address] 24262- 3687 Mar, [facility] [address] [place] [address] [phone] Mar, Alcoholism F10.20 ; 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 ; COPD (chronic obstructive pulmonary disease) J44.9 and Sleep apnea G47.30 [id number] [place] [address] 47962- 6699 Mar, [place] [id number] [place] [address] 81214- 0807 Mar, [place] [id number] [place] [address] 90727- 8742 Feb, 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 ; GERD (gastroesophageal reflux disease) K21.9 ; Hypothyroid E03.9 ; Sleep apnea G47.30 ; Parkinson's disease (tremor, stiffness , slow motion, unstable posture) G20 ; CAD (coronary artery disease) I25.10 ; Edema, unspecified type R60.9 ; COPD (chronic obstructive pulmonary disease) J44.9 and Neuropathy G62.9 [address] [id number] [place] [address] 55786- 0604 Jan, HTN (hypertension) I10 [place] [id number] [place] [address] 24578- 4266 Jan, COPD (chronic obstructive pulmonary disease) J44.9 ; Hypothyroid E03.9 ; Environmental allergies Z91.09 ; 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 ; Hypercholesterolemia E78.0 ; Sleep apnea G47.30 ; CAD (coronary artery disease) I25.10 ; HTN (hypertension ) I10 ; GERD (gastroesophageal reflux disease) K21.9 ; Anemia D64.9 and Edema, unspecified type R60.9 [place] [id number] [place] [address] 65077- 0885 Dec, [address] [address] Dec, 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 ; GERD (gastroesophageal reflux disease) K21.9 ; HTN ( hypertension) I10 ; Hypothyroid E03.9 ; Environmental allergies Z91.09 ; Sleep apnea G47.30 ; CAD (coronary artery disease) I25.10 ; Hypercholesterolemia E78.0 and COPD (chronic obstructive pulmonary disease) J44.9 [place] [address] [place] [address] 47882- 6669 Oct, [facility] [id number] [place] [address] 25142- 3774 Aug, 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 ; GERD (gastroesophageal reflux disease) K21.9 ; Hypothyroid E03.9 ; Environmental allergies Z91.09 ; CAD (coronary artery disease) I25.10 ; Hypercholesterolemia E78.0 ; COPD (chronic obstructive pulmonary disease) J44.9 and Sleep apnea G47.30 [place] [id number] [place] [address] 82503- 9116 Jul, COPD (chronic obstructive pulmonary disease) J44.9 [place] [id number] [place] [address] 50406- 2080 June, [place] [id number] [place] [address] 55096- 1695 May, [place] [id number] [place] [address] 23033- 7620 Apr, COPD (chronic obstructive pulmonary disease) J44.9 ; Sleep apnea G47.30 ; HTN (hypertension) I10 ; Hypothyroid E03.9 ; Environmental allergies Z91.09 ; CAD (coronary artery disease) I25.10 ; Hypercholesterolemia E78.0 and 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 [address] [address] [place] [address] 58251- 1357 Apr, [place] [id number] [place] [address] 59992- 4883 Mar, [place] [id number] [place] [address] 80589- 9400 Mar, [place] [id number] [place] [address] 21329- 4622 Feb, [address] [address] [place] [address] 39286- 9562 Feb, 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 ; Hypothyroid E03.9 ; HTN (hypertension) I10 ; COPD ( chronic obstructive pulmonary disease) J44.9 ; Sleep apnea G47.30 ; Hypercholesterolemia E78.0 ; Environmental allergies Z91.09 ; Diarrhea R19.7 and GERD (gastroesophageal reflux disease) K21.9 [place] [id number] [place] [address] 40871- 0452 Feb, [place] [id number] [place] [address] 06262- 5519 Jan, [place] [id number] [place] [address] 41124- 8572 Jan, [place] [address] 34814- 5144 Jan, [place] [id number] [place] [address] 10181- 0384 Jan, Anemia D64.9 [address] [id number] [place] [address] 40152- 7008 Jan, [place] [id number] [place] [address] 58568- 2270 Jan, 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 ; Hypothyroid E03.9 ; HTN (hypertension) I10 ; COPD ( chronic obstructive pulmonary disease) J44.9 ; Sleep apnea G47.30 ; Hypercholesterolemia E78.0 ; CAD (coronary artery disease) I25.10 and Environmental allergies Z91.09 IMMUNIZATIONS No Known Immunizations SOCIAL HISTORY Never Assessed REASON FOR VISIT Med Refill--ADavieKeyona PLAN OF CARE VITAL SIGNS MEDICATIONS Medication Instructions Dosage Frequency Start Date End Date Duration Status Levothyroxine Sodium 150 MCG Orally Once a day 2 tab 24h 30 Active Atorvastatin Calcium 40 MG Orally [...] History Double pneumonia 07/2015 Hospitalization History [facility] allergic reaction 03/[address] [facility] spent 2 weeks 03/2016
[2017-11-01] MEDS ORDERED: SEVOFLURANE (ULTANE) 15 ML INHAL SOLN ONE (07:00)
--- OUTSIDE RECORDS SUMMARY | 2017-11-01 07:00 | XMS REPORT ---
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 58311570298712 Problem Hypothyroid E03.9 Active 89788320 Problem COPD (chronic obstructive pulmonary disease) J44.9 Active 88614903 Problem Coronary atherosclerosis due to lipid rich plaque I25.83 Active 866769209589787 Problem HTN (hypertension) I10 Active 39745870 Problem Atherosclerotic heart disease of [place] coronary artery without angina pectoris I25.10 Active 867070093888865 Problem CAD (coronary artery disease) I25.10 Active 52027602 Problem Panlobular emphysema J43.1 Active 9613440 Problem Type 2 diabetes mellitus with other circulatory complications E11.59 Active 59625354 Problem Type 2 diabetes mellitus with hyperglycemia E11.65 Active 411351213 Problem Simple chronic bronchitis J41.0 Active 36115634 Problem COPD exacerbation J44.1 Active 842960873 Problem Sleep apnea G47.30 Active 85142498 Problem Environmental allergies Z91.09 Active 087979329 Problem GERD (gastroesophageal reflux disease) K21.9 Active 118825960 Problem shelter 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 Z79.4 Active 588036601 Problem Diabetes E11.9 Active 080594287 Problem COPD with acute exacerbation J44.1 Active 636325459 Problem 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 Active 926234779923 Problem Parkinson's disease (tremor, stiffness, slow motion, unstable posture ) G20 Active 28900603 Problem Alcoholism F10.20 Active 0592373 Problem Diarrhea R19.7 Active 06763953 Problem Neuropathy G62.9 Active 763880643 Problem Edema, unspecified type R60.9 Active 198851686 Problem Coronary artery disease involving [place] coronary artery of [place] heart without angina pectoris I25.10 Active 9497613947985 Problem 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 Active 11462034932570 Problem Open wound, lower leg, right, initial encounter S81.801A Active 465349231 ALLERGIES No Information ENCOUNTERS Encounter Location Date Diagnosis [place] [address] [address] Jul, [place] [address] [address] June, BMI 45.0-49.9, adult Z68.42 and Simple chronic bronchitis J41.[address] [address] June, [place] [address] [address] May, HTN (hypertension) I10 and Type 2 diabetes mellitus with other circulatory complications E11.59 [place] [address] 85951[address]674 May, [place] [address] 10242- 4483 May, COPD exacerbation J44.1 [place] [address] 07624- 0682 Apr, Pure hypercholesterolemia E78.00 [place] [address] [address] Apr, [facility] [address] [address] 17 Mar, 2017 Cough R05 ; COPD with acute exacerbation J44.1 and BMI 45.0 -49.9, adult Z68.42 [place] [address] [address] 13 Mar, 2017 [facility] [address] [address]- [address] Mar, [facility] [address] [address] Feb, [facility] [address] [place] [id number] [place] [address]101- 8826 Feb, BMI 45.0-49.9, adult Z68.42 and Acute non-recurrent maxillary sinusitis J01.00 [facility] [address] [place] [id number] [place] [address] 65563- 4683 Feb, [facility] [address] [place] [id number] [place] [address] 90125- 7585 Feb, [facility] [address] [place] [id number] [place] [address] 54549- 0499 Feb, GERD (gastroesophageal reflux disease) K21.9 [place] [address] [place] [id number] [place] [address] 18843- 6712 Jan, Panlobular emphysema J43.1 ; Type 2 diabetes mellitus with hyperglycemia E11.65 and shelter 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 Z79.4 [facility] [address] [place] [address] 61095- 0837 Jan, [facility] [address] [place] [address]45 -2250 Dec, Chronic obstructive pulmonary disease with acute exacerbation J44.1 ; Cough R05 ; 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 ; Type 2 diabetes mellitus with other circulatory complications E11.59 ; shelter 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 Z79.4 and BMI 45.0-49.9, adult Z68.42 [facility] [address], [place] [address] 4[address] Oct, [facility] [address] [place] [id number] [place] [address] 99467- 6632 Sep, [facility] [address] [place] [id number] [place] [address] 30535- 3509 Aug, [facility] [address] [place] [id number] [address] May, [facility] [address] [address] 0826 May, [facility] [address], [place] [address] 2[address] Apr, [facility] [address] [place] [address] 02839- 8348 Apr, [facility] [address] [place] [address] 33846- 9455 Apr, [facility] [address] [place] [address] 50647- 4730 Apr, 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 ; GERD (gastroesophageal reflux disease) K21.9 ; HTN ( hypertension) I10 ; Environmental allergies Z91.09 ; COPD (chronic obstructive pulmonary disease) J44.9 ; Sleep apnea G47.30 ; Hypothyroid E03.9 ; Neuropathy G62.9 ; Pure hypercholesterolemia E78.00 ; Atherosclerotic heart disease of [place] coronary artery without angina pectoris I25.10 ; Coronary atherosclerosis due to lipid rich plaque I25.83 and Edema, unspecified type R60.9 [facility] [address] [place] [address] [id number] Mar, COPD (chronic obstructive pulmonary disease) J44.9 ; Alcoholism F10.20 and 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 [facility] [address] [place] [address] [id number] Mar, Open wound T14.8 [facility] [address] [place] [id number] [address] Mar, Environmental allergies Z91.09 ; Open wound, lower leg, right, initial encounter S81.801A ; GERD (gastroesophageal reflux disease) K21.9 ; Hypothyroid E03.9 ; Hypercholesterolemia E78.0 ; Sleep apnea G47.30 ; Neuropathy G62.9 ; Edema, unspecified type R60.9 ; 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 ; Coronary artery disease involving [place] coronary artery of [place] heart without angina pectoris I25.10 ; 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 and COPD (chronic obstructive pulmonary disease) J44.9 [place] [address] [place] [id number] [place] [address] 37780- 6063 Mar, [place] [address] [place] [id number] [place] [address] 23796- 4731 Mar, [address] [address]- 75[address] Mar, [facility] [address] [place] [id number] Mar, Alcoholism F10.20 ; 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 ; COPD (chronic obstructive pulmonary disease) J44.9 and Sleep apnea G47.30 [place] [id number] [place] [address] 50032- 1050 Mar, [place] [id number] [place] [address] 64741- 4710 Mar, [place] [address] [place] [id number] [place] [address] 49364- 3770 Feb, 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09 ; 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 ; Hypercholesterolemia E78.0 ; Sleep apnea G47.30 ; CAD (coronary artery disease) I25.10 ; HTN (hypertension ) I10 ; GERD (gastroesophageal reflux disease) K21.9 ; Anemia D64.9 and Edema, unspecified type R60.9 [place] [address] [place] [id number] [place] [address] 98025- 5050 Dec, [place] [id number] [place] [address] 29276- 8291 Dec, 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 ; GERD (gastroesophageal reflux disease) K21.9 ; HTN ( hypertension) I10 ; Hypothyroid E03.9 ; Environmental allergies Z91.09 ; Sleep apnea G47.30 ; CAD (coronary artery disease) I25.10 ; Hypercholesterolemia E78.0 and COPD (chronic obstructive pulmonary disease) J44.9 [place] [address] [place] [id number] [place] [address] 32592- 2940 Oct, [place] [address] [address]- [address]47 Aug, 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 ; GERD (gastroesophageal reflux disease) K21.9 ; Hypothyroid E03.9 ; Environmental allergies Z91.09 ; CAD (coronary artery disease) I25.10 ; Hypercholesterolemia E78.0 ; COPD (chronic obstructive pulmonary disease) J44.9 and Sleep apnea G47.30 [place] [address] [place] [id number] [place] [address] 89606- 0053 Jul, COPD (chronic obstructive pulmonary disease) J44.9 [place] [address] [place] [id number] [place] [address]12- 3661 June, [place] [id number] [place] [address] 14405- 0879 May, [place] [address] [place] [id number] [place] [address] 87170- 2623 Apr, COPD (chronic obstructive pulmonary disease) J44.9 ; Sleep apnea G47.30 ; HTN (hypertension) I10 ; Hypothyroid E03.9 ; Environmental allergies Z91.09 ; CAD (coronary artery disease) I25.10 ; Hypercholesterolemia E78.0 and 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 [facility] [address] [place] [id number] [place] [address] 06768- 1800 Apr, [facility] [address] [place] [id number] [place] [address] 08217- 0191 Mar, [facility] [address] [place] [id number] [place] [address] 31379- 7519 Mar, [facility] [address] [place] [id number] [place] [address] 92808- 5407 Feb, [facility] [address] [place] [id number] [place] [address] 15682- 2489 Feb, 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 ; Hypothyroid E03.9 ; HTN (hypertension) I10 ; COPD ( chronic obstructive pulmonary disease) J44.9 ; Sleep apnea G47.30 ; Hypercholesterolemia E78.0 ; Environmental allergies Z91.09 ; Diarrhea R19.7 and GERD (gastroesophageal reflux disease) K21.9 [place] [address] [place] [id number] [place] [address] 01508- 4925 Feb, [facility] [address] [place] [id number] [place] [address] 77751- 1243 Jan, [facility] [address] [place] [id number] [place] [address] 82127- 5714 Jan, [facility] [address] [place] [id number] [place] [address] 09115- 5696 Jan, [facility] [address] [place] [id number] [place] [address] 73534- 3110 15 Jan, 2015 Anemia D64.9 [facility] [address] [place] [id number] [place] [address] 14243- 5279 14 Jan, 2015 [facility] [address] [place] [id number] [place] [address] 97431- 2828 10 Jan, 2015 Type 2 diabetes mellitus [...] a day 1 tablet as needed 8h Jan, Jan, 15 days Active RESULTS No Results PROCEDURES [...] [facility] allergic reaction 03/[address] [facility] spent 2 weeks 03/2016 Hospitalization History [facility]- Pneumonia, COPD with Acute Exacerbation 05/19/2017
[2017-11-01] MEDS ORDERED: PHENYLEPHRINE 100 MCG/ML 10 ML (ANESTHESIA) SYR ONE (07:01)
--- OUTSIDE RECORDS SUMMARY | 2017-11-01 07:01 | XMS REPORT ---
Author Author OSITO Locke Organization [facility] Address [address] [place] [address] Care Team Providers Care Senior Accounts Payable Clerk Name Role Phone OSITO Locke Unavailable PROBLEMS Type Condition ICD9-CM Code [id number] Code Onset Dates Condition Status SNOMED Code Problem Pure hypercholesterolemia E78.00 Active 962323241 Problem Hypothyroid E03.9 Active 30808253 Problem Edema, unspecified type R60.9 Active 758127877 Problem COPD (chronic obstructive pulmonary disease) J44.9 Active 89954724 Problem Coronary artery disease involving [place] coronary artery of [place] heart without angina pectoris I25.10 Active 7954965441403 Problem HTN (hypertension) I10 Active 78047665 Problem Coronary atherosclerosis due to lipid rich plaque I25.83 Active 940815123361330 Problem Panlobular emphysema J43.1 Active 4336580 Problem Atherosclerotic heart disease of [place] coronary artery without angina pectoris I25.10 Active 864054218876485 Problem COPD with acute exacerbation J44.1 Active 616569331 Problem 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 Active 294611038269 Problem 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 69950316967281 Problem GERD (gastroesophageal reflux disease) K21.9 Active 445951513 Problem CAD (coronary artery disease) I25.10 Active 68402943 Problem 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.4 Active 342037422 Problem Type 2 diabetes mellitus with hyperglycemia E11.65 Active 533706994 Problem Type 2 diabetes mellitus with other circulatory complications E11.59 Active 91566183 Problem Diabetes E11.9 Active 899874591 Problem Diarrhea R19.7 Active 89764111 Problem Neuropathy G62.9 Active 535274932 Problem Environmental allergies Z91.09 Active 333301492 Problem Sleep apnea G47.30 Active 81486309 Problem 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 Active 64610891284585 Problem Open wound, lower leg, right, initial encounter S81.801A Active 391143645 Problem Parkinson's disease (tremor, stiffness, slow motion, unstable posture ) G20 Active 31002688 Problem Alcoholism F10.20 Active 3400113 ALLERGIES No Information ENCOUNTERS Encounter Location Date Diagnosis [facility] [address] [address] May, [facility] [address] 1[address]- 5[address] Apr, Pure hypercholesterolemia E78.00 [facility] [address] 8[address]12- 9919 Apr, [facility] [address] [address] 17 Mar, 2017 Cough R05 ; COPD with acute exacerbation J44.1 and BMI 45.0 -49.9, adult Z68.42 [place] [address] [address]- 6513 13 Mar, 2017 [facility] [address] 29511- 4367 Mar, [place] [address] [address]- 1988 Feb, [facility] [address] 54[address]- 6674 Feb, BMI 45.0-49.9, adult Z68.42 and Acute non-recurrent maxillary sinusitis J01.00 [facility] [address] 57834- 4101 Feb, [facility] [address] 78253- 4281 Feb, [facility] [address] 42704- 0990 Feb, GERD (gastroesophageal reflux disease) K21.9 [facility] [address] 70462- 9466 Jan, Panlobular emphysema J43.1 ; Type 2 diabetes mellitus with hyperglycemia E11.65 and 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.4 [facility] [address] [place] [id number] [place] [address] 14077- 2028 Jan, [facility] [id number] [place] [address] 65547 -7288 Dec, Chronic obstructive pulmonary disease with acute exacerbation J44.1 ; Cough R05 ; 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 ; Type 2 diabetes mellitus with other circulatory complications E11.59 ; 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.4 and BMI 45.0-49.9, adult Z68.42 [facility] [address] [place] [id number] [place] [address] 00052- 4847 Oct, [place] [address] [place] [id number] [place] [address] 48901- 7749 Sep, [facility] [address] [place] [id number] [place] [address] 49197- 5910 Aug, [facility] [address] [place] [id number] [place] [address] 97806- 2866 May, [facility] [address] [place] [id number] [place] [address] 98469- 0895 May, [facility] [address] [place] [id number] [place] [address] 60926- 5096 Apr, [facility] [address] [place] [id number] [place] [address] 10838- 7037 Apr, [facility] [address] [place] [id number] [place] [address] 75703- 6216 Apr, [place] [address] [place] [id number] [place] [address] 30688- 1167 Apr, 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 ; GERD (gastroesophageal reflux disease) K21.9 ; HTN ( hypertension) I10 ; Environmental allergies Z91.09 ; COPD (chronic obstructive pulmonary disease) J44.9 ; Sleep apnea G47.30 ; Hypothyroid E03.9 ; Neuropathy G62.9 ; Pure hypercholesterolemia E78.00 ; Atherosclerotic heart disease of [place] coronary artery without angina pectoris I25.10 ; Coronary atherosclerosis due to lipid rich plaque I25.83 and Edema, unspecified type R60.9 [facility] [address] [place] [address] [id number] Mar, COPD (chronic obstructive pulmonary disease) J44.9 ; Alcoholism F10.20 and 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 [facility] [employer] [address] [place] [address] [id number] Mar, Open wound T14.8 [place] [address] [address]- [address] Mar, Environmental allergies Z91.09 ; Open wound, lower leg, right, initial encounter S81.801A ; GERD (gastroesophageal reflux disease) K21.9 ; Hypothyroid E03.9 ; Hypercholesterolemia E78.0 ; Sleep apnea G47.30 ; Neuropathy G62.9 ; Edema, unspecified type R60.9 ; 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 ; Coronary artery disease involving [place] coronary artery of [place] heart without angina pectoris I25.10 ; 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 and COPD (chronic obstructive pulmonary disease) J44.9 [place] [address] [place] [id number] [place] [address] 60488- 4037 Mar, [place] [address] [place] [id number] [place] [address] 20761- 4913 Mar, [place] [address] [place] [id number] [place] [address] 45622- 1170 Mar, [facility] [employer] [address] [place] [address] [id number] Mar, Alcoholism F10.20 ; 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 ; COPD (chronic obstructive pulmonary disease) J44.9 and Sleep apnea G47.30 [place] [address] [place] [id number] [place] [address] 17950- 3796 Mar, [place] [id number] [place] [address] 90459- 6746 Mar, [address] [address]- 2175 Feb, 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 ; GERD (gastroesophageal reflux disease) K21.9 ; Hypothyroid E03.9 ; Sleep apnea G47.30 ; Parkinson's disease (tremor, stiffness , slow motion, unstable posture) G20 ; CAD (coronary artery disease) I25.10 ; Edema, unspecified type R60.9 ; COPD (chronic obstructive pulmonary disease) J44.9 and Neuropathy G62.[address] 6[address]- 1611 Jan, HTN (hypertension) I10 [address] 79372- 8090 Jan, COPD (chronic obstructive pulmonary disease) J44.9 ; Hypothyroid E03.9 ; Environmental allergies Z91.09 ; 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 ; Hypercholesterolemia E78.0 ; Sleep apnea G47.30 ; CAD (coronary artery disease) I25.10 ; HTN (hypertension ) I10 ; GERD (gastroesophageal reflux disease) K21.9 ; Anemia D64.9 and Edema, unspecified type R60.9 [place] [id number] [place] [address] 45696- 4195 Dec, [address] 47169- 0946 Dec, 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 ; GERD (gastroesophageal reflux disease) K21.9 ; HTN ( hypertension) I10 ; Hypothyroid E03.9 ; Environmental allergies Z91.09 ; Sleep apnea G47.30 ; CAD (coronary artery disease) I25.10 ; Hypercholesterolemia E78.0 and COPD (chronic obstructive pulmonary disease) J44.[address] 74121- 9479 Oct, [place] [address] [place] [address] 70225- 6618 Aug, 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 ; GERD (gastroesophageal reflux disease) K21.9 ; Hypothyroid E03.9 ; Environmental allergies Z91.09 ; CAD (coronary artery disease) I25.10 ; Hypercholesterolemia E78.0 ; COPD (chronic obstructive pulmonary disease) J44.9 and Sleep apnea G47.30 [place] [address] [place] [id number] [place] [address] 76363- 7967 Jul, COPD (chronic obstructive pulmonary disease) J44.9 [place] [address] [place] [id number] [place] [address] 34205- 3498 June, [place] [address] [place] [id number] [place] [address] 56174- 3499 May, [place] [address] [place] [id number] [place] [address] 28338- 8814 Apr, COPD (chronic obstructive pulmonary disease) J44.9 ; Sleep apnea G47.30 ; HTN (hypertension) I10 ; Hypothyroid E03.9 ; Environmental allergies Z91.09 ; CAD (coronary artery disease) I25.10 ; Hypercholesterolemia E78.0 and 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 [place] [address] [place] [id number] [place] [address] 12354- 1338 Apr, [place] [address] [place] [id number] [place] [address] 05273- 5829 Mar, [place] [address] [place] [id number] [place] [address] 25408- 9106 Mar, [place] [address] [place] [id number] [place] [address] 06721- 3988 Feb, [place] [address] [place] [id number] [place] [address] 61382- 9139 Feb, 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 ; Hypothyroid E03.9 ; HTN (hypertension) I10 ; COPD ( chronic obstructive pulmonary disease) J44.9 ; Sleep apnea G47.30 ; Hypercholesterolemia E78.0 ; Environmental allergies Z91.09 ; Diarrhea R19.7 and GERD (gastroesophageal reflux disease) K21.9 [facility] [address] [address] 0952 Feb, [facility] [address] [place] [id number] [place] [address] 22161- 9893 Jan, [facility] [address] [place] [id number] [place] [address] 10384- 4635 Jan, [place] [address] [place] [id number] [place] [address] 08146- 6996 Jan, [place] [address] [place] [id number] [place] [address] 86898- 5909 Jan, Anemia D64.9 [place] [address] [place] [id number] [place] [address] 30692- 1301 Jan, [place] [address] [place] [id number] [place] [address] 29603- 4937 10 Jan, 2015 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 ; Hypothyroid E03.9 ; HTN (hypertension) I10 ; COPD ( chronic obstructive pulmonary disease) J44.9 ; Sleep apnea G47.30 ; Hypercholesterolemia E78.0 ; CAD (coronary artery disease) I25.10 and Environmental allergies Z91.09 IMMUNIZATIONS No Known Immunizations SOCIAL HISTORY Never Assessed REASON FOR VISIT PLAN OF CARE VITAL SIGNS MEDICATIONS Medication Instructions Dosage Frequency Start Date End Date Duration Status Hydrocodone-Acetaminophen 7.5-325 MG Orally 3 times a day PRN 1 tablet as needed Aug, Active RESULTS No Results PROCEDURES No Known [...] [facility] allergic reaction 03/2016 [facility]
[2017-11-01] MEDS ORDERED: LABETALOL HCL 20 MG/4 ML VIAL ONE (07:02)
[2017-11-01] MEDS ORDERED: LACTATED RINGERS 1,000 ML IV STA (07:07)
[2017-11-01] MEDS ORDERED: LACTATED RINGERS 1,000 ML IV ONE (07:10)
--- NOTE | 2017-11-01 07:15 | Progress Note-Pre Operative ---
Pre-Operative Progress Note H&P Reviewed The H&P was reviewed, patient examined and no changes noted. Time Seen by Provider: 07:15 Date H&P Reviewed: Nov 01, 2017 Time H&P Reviewed: 07:15 Pre-Operative Diagnosis: lung mass VIRGILIO HARKINS DO Nov 01, 2017 07:15
--- NOTE | 2017-11-01 07:16 | Pulmonary Procedures ---
Pulmonary Procedures Date of Procedure Date of Service: Nov 01, 2017 Bronch Bronchoscopy with EBUS , RUL BAL, Washing, and brush, Percepta brush obtained. Preop DX: [mediastinal lymphadenopathy, Lung mass PostOP DX: same Complications: None Pt was sedated per anesthesia. Bronchoscopy was advanced through the ED tube and an anatomical undertaken down to the segmental bronchi bilaterally. No endobronchial lesions noted. RUL BAL, Washing, and brush were obtained. Percepta brush obtained from right mainstem tatyana. EBUS was then advanced through ET tube and the mediastinum was US. Only very small mediastinal lymph nodes were seen using US. No transbronchial needle aspiration was done. Pt tolerated procedure well. No complications noted. VIRGILIO HARKINS DO Nov 01, 2017 07:16
[2017-11-01 07:30] VITALS: BP 139/73
[2017-11-01] MEDS ORDERED: proPOfol 200 MG/20 ML (DIPRIVAN) VIAL IV ONE (07:58)
--- NOTE | 2017-11-01 09:05 | Diagnostic Imaging Report ---
Indication: Status post bronchoscopy. Time of exam: 8:53 AM Correlation is made with prior study 05/19/2017. The heart is enlarged but stable. Changes of median sternotomy are noted. Bilateral pulmonary infiltrates persist. Parenchymal density in the right suprahilar region is seen, similar to the prior exam. No effusion or pneumothorax is seen. There is diffuse interstitial changes. Impression: Overall similar appearance to the chest when compared with exam from 05/19/2017. Dictated by: Dictated on workstation # [id number]
[2017-11-01 09:10] VITALS: BP 161/72
[2017-11-01 09:30] VITALS: BP 145/78
[2017-11-01 10:15] VITALS: BP 145/78
--- NOTE | 2017-11-01 14:44 | Anesthesia-General Post-Op ---
General Patient Condition Mental Status/LOC: Same as Preop Cardiovascular: Satisfactory Nausea/Vomiting: Absent Respiratory: Satisfactory Pain: Controlled Complications: Absent Post Op Complications Complications None Follow Up Care/Instructions Patient Instructions None needed. Anesthesia/Patient Condition Patient Condition Patient is doing well, no complaints, stable vital signs, no apparent adverse anesthesia problems. No complications reported per nursing. D/C home per [facility] Criteria: No EMMIE MACEDO CRNA Nov 01, 2017 14:44
== END 2017-11-01 09:35 | disposition home or self-care (01) ==
LOC: ENDO 06:49
PROVIDERS: ATTEND Internal Medicine Critical Care Medicine
DX: R91.1 Solitary pulmonary nodule (principal); R59.0 Localized enlarged lymph nodes; J30.9 Allergic rhinitis, unspecified; Z87.891 Personal history of nicotine dependence; J43.9 Emphysema, unspecified; Z99.81 Dependence on supplemental oxygen; J84.9 Interstitial pulmonary disease, unspecified; R09.02 Hypoxemia; I10 Essential (primary) hypertension; I25.10 Atherosclerotic heart disease of native coronary artery without angina pectoris; Z95.1 Presence of aortocoronary bypass graft; Z95.5 Presence of coronary angioplasty implant and graft; I73.9 Peripheral vascular disease, unspecified; G47.33 Obstructive sleep apnea (adult) (pediatric); Z86.73 Personal history of transient ischemic attack (TIA), and cerebral infarction without residual deficits; E11.40 Type 2 diabetes mellitus with diabetic neuropathy, unspecified; K21.9 Gastro-esophageal reflux disease without esophagitis; E66.01 Morbid (severe) obesity due to excess calories; Z79.899 Other long term (current) drug therapy; Z79.82 Long term (current) use of aspirin
CPT/HCPCS: 71045; 82962; 87070; 87077; 87101; 87116; 87186; 87205; 88112; 88305; 88312; 94640

== ENCOUNTER → 2017-11-09 | Outpatient (CLI) | payer MEDICARE, OTHER ==
[~2017-11-09] MED LIST changes: -proPOfol 200 MG/20 ML (DIPRIVAN) VIAL IV ONE
[2017-11-09 14:11] LABS: BASOPHILS % (AUTO) 1 % (0-10); EOSINOPHILS # (AUTO) 0.2 10^3/uL (0.0-0.3); EOSINOPHILS % (AUTO) 4 % (0-10); HEMATOCRIT 35 % (40-54); HEMOGLOBIN 11.2 G/DL (13.3-17.7); LYMPHOCYTES # (AUTO) 0.5 X 10^3 (1.0-4.0); LYMPHOCYTES % (AUTO) 11 % (12-44); MEAN CORPUSCULAR HEMOGLOBIN 26 PG (25-34); MEAN CORPUSCULAR HGB CONC 32 G/DL (32-36); MEAN CORPUSCULAR VOLUME 81 FL (80-99); MONOCYTES # (AUTO) 0.3 X 10^3 (0.0-1.0); MONOCYTES % (AUTO) 8 % (0-12); NEUTROPHILS # (AUTO) 3.2 X 10^3 (1.8-7.8); NEUTROPHILS % (AUTO) 77 % (42-75); PLATELET COUNT 132 10^3/uL (130-400); RED CELL DISTRIBUTION WIDTH 15.1 % (10.0-14.5); WHITE BLOOD COUNT 4.2 10^3/uL (4.3-11.0)
== END ==
LOC: LAB 13:55
PROVIDERS: ATTEND Nurse Practitioner Family
DX: B96.5 Pseudomonas (aeruginosa) (mallei) (pseudomallei) as the cause of diseases classified elsewhere (principal)
CPT/HCPCS: 36415; 85025

== ENCOUNTER → 2017-11-27 | Outpatient (CLI) | payer MEDICARE, OTHER ==
--- NOTE | 2017-11-27 10:31 | Diagnostic Imaging Report ---
PROCEDURE: CT chest without contrast. TECHNIQUE: Multiple contiguous axial images were obtained through the chest without the use of intravenous contrast. INDICATION: Shortness of breath. COMPARISON: Comparison is made with prior CT chest study from 10/17/2017. FINDINGS: Changes of median sternotomy and CABG are noted. Heart size is stable. Coronary arterial calcifications are again seen. No axillary lymphadenopathy is detected. Mediastinal and hilar evaluation is somewhat limited without intravenous contrast but no new abnormality is seen. No pericardial or pleural fluid is detected. Spiculated density right upper lobe appear stable at 2.0 x 2.3 cm. There is some mild infiltrate in the posterior right lower lobe, similar to prior exam. Basilar interlobular septal thickening is again seen. Upper abdomen is unremarkable. IMPRESSION: Overall stable CT chest when compared with prior study from 10/17/2017. There continues to be some basilar infiltrate on the right. Spiculated right upper lobe density remains stable. Dictated by: Dictated on workstation # [id number]
== END ==
LOC: RAD 09:18
PROVIDERS: ATTEND Nurse Practitioner Family
DX: J96.20 Acute and chronic respiratory failure, unspecified whether with hypoxia or hypercapnia (principal); J44.9 Chronic obstructive pulmonary disease, unspecified; B96.5 Pseudomonas (aeruginosa) (mallei) (pseudomallei) as the cause of diseases classified elsewhere; J98.4 Other disorders of lung
CPT/HCPCS: 71250

== ENCOUNTER → 2017-11-28 | Outpatient (CLI) | payer MEDICARE, OTHER ==
--- NOTE | 2017-11-28 14:58 | Diagnostic Imaging Report ---
INDICATION: Lung mass. TECHNIQUE: Serum blood glucose level at time of injection was 102 mg/dL. The patient was administered 12.9 mCi F-18 FDG intravenously in the left antecubital location and PET imaging from the top of skull to mid thighs was performed. Noncontrast CT was also performed for attenuation correction and anatomic correlation. COMPARISON: Correlation is made with recent chest CT from 11/27/2017 as well as prior PET/CT performed on 07/28/2015. FINDINGS: There is symmetric activity throughout the brain. Physiologic activity in the neck is identified. Imaging through the chest does show intense hypermetabolism within a spiculated mass in the right upper lobe recently described on CT. SUV max is approximately 8.9. No abnormal hypermetabolism within the darryl or mediastinum is identified to suggest metastatic disease. Physiologic activity in the abdomen and pelvis GI and tracts is seen. IMPRESSION: Hypermetabolic mass in the right upper lobe, suggestive of primary lung neoplasm. No definite mediastinal or hilar involvement is identified. This mass has increased in size and does show greater hypermetabolism when compared with prior PET/CT from 07/28/2015. Dictated by: Dictated on workstation # [id number]
== END ==
LOC: RAD 08:07
PROVIDERS: ATTEND Internal Medicine Critical Care Medicine
DX: R91.8 Other nonspecific abnormal finding of lung field (principal); R94.8 Abnormal results of function studies of other organs and systems; J43.9 Emphysema, unspecified

== ENCOUNTER → 2017-12-01 | Outpatient (CLI) | payer MEDICARE, OTHER ==
[~2017-12-01] MED LIST changes: +RT-ALBUTEROL SULF 2.5 MG/3 ML PRE-MIX VIAL INH ONE; +RT-ALBUTEROL SULF 2.5 MG/3 ML PRE-MIX VIAL ONE
== END ==
LOC: RT 09:09
PROVIDERS: ATTEND Nurse Practitioner Family
DX: J43.9 Emphysema, unspecified (principal); J96.20 Acute and chronic respiratory failure, unspecified whether with hypoxia or hypercapnia; R91.1 Solitary pulmonary nodule; J84.9 Interstitial pulmonary disease, unspecified; Z87.891 Personal history of nicotine dependence
CPT/HCPCS: 94060; 94726; 94729

== ENCOUNTER → 2017-12-01 | Outpatient (CLI) | payer MEDICARE, OTHER ==
[~2017-12-01] MED LIST changes: -RT-ALBUTEROL SULF 2.5 MG/3 ML PRE-MIX VIAL INH ONE; -RT-ALBUTEROL SULF 2.5 MG/3 ML PRE-MIX VIAL ONE
== END ==
LOC: CARD 09:11
PROVIDERS: ATTEND Internal Medicine Cardiovascular Disease
DX: J96.20 Acute and chronic respiratory failure, unspecified whether with hypoxia or hypercapnia (principal); F10.20 Alcohol dependence, uncomplicated; I25.10 Atherosclerotic heart disease of native coronary artery without angina pectoris; J44.9 Chronic obstructive pulmonary disease, unspecified; E11.9 Type 2 diabetes mellitus without complications; E78.5 Hyperlipidemia, unspecified
CPT/HCPCS: 93306

== ENCOUNTER → 2017-12-04 | Outpatient (CLI) | payer MEDICARE ==
[~2017-12-04] MED LIST changes: +CATHETER FLUSH 10 ML SYR IV PRN; +REGADENOSON 0.4 MG/5 ML SYR (LEXISCAN) IV ONE
[2017-12-04 09:09] VITALS: BP 140/79
--- NOTE | 2017-12-04 17:10 | STRESS TEST ---
DATE OF SERVICE: 12/04/2017 LEXISCAN MYOVIEW STRESS TEST REFERRING PHYSICIAN: [facility]. Baseline heart rate is 71. Baseline blood pressure is 160/85. Baseline EKG: Baseline EKG is sinus rhythm with frequent atrial premature contractions. In summary, the patient was injected with 10.7 mCi of technetium-99 Myoview and the resting images were obtained. Then, the patient received 0.4 mg of Lexiscan followed by 30.5 mCi of technetium-99 Myoview. Throughout the test, there were no EKG changes. The resting and stress images were reviewed and compared in the short axis, horizontal long axis, and vertical long axis views. Review of the images showed reversible ischemia involving the mid to apical anterolateral wall and inferolateral wall and true apex. SSS is 13. SDS 7. TID value 0.86. On the gated images, the left ventricle appeared to be in normal size with diffuse left ventricular hypokinesia, calculated ejection fraction 44%. CONCLUSION: 1. The patient tolerated Lexiscan well. 2. Reversible ischemia involving the mid to apical anterolateral and inferolateral wall. 3. Normal left ventricular size with diffuse left ventricular hypokinesia, calculated ejection fraction 44%. Job ID: [id number] DocumentID: [id number] Dictated Date: 12/04/2017 12:56:35 Sheet Metal Technician Date: 12/04/2017 17:10:16 Dictated By: NHUNG GALAVIZ MD
== END ==
LOC: CARD 06:57
PROVIDERS: ATTEND Internal Medicine Cardiovascular Disease
DX: I25.10 Atherosclerotic heart disease of native coronary artery without angina pectoris (principal); E78.5 Hyperlipidemia, unspecified; J96.20 Acute and chronic respiratory failure, unspecified whether with hypoxia or hypercapnia; F10.20 Alcohol dependence, uncomplicated; J44.9 Chronic obstructive pulmonary disease, unspecified; E11.9 Type 2 diabetes mellitus without complications
CPT/HCPCS: 78452; 93017

== ENCOUNTER 2017-12-06 07:00 | Outpatient (CLI) | payer MEDICARE, OTHER ==
[2017-12-06] VITALS (17 sets, daily range): BP systolic 114–168; BP diastolic 52–93
[~2017-12-06] VITALS: Ht 190.5 cm; Wt 154.4 kg
[~2017-12-06 07:00] MED LIST changes: -CATHETER FLUSH 10 ML SYR IV PRN; -REGADENOSON 0.4 MG/5 ML SYR (LEXISCAN) IV ONE
[2017-12-06 07:56] LABS: HEMOGLOBIN 10.6 G/DL (13.3-17.7); MEAN PLATELET VOLUME 10.1 FL (7.4-10.4); RED BLOOD COUNT 4.01 10^6/uL (4.35-5.85); RED CELL DISTRIBUTION WIDTH 15.4 % (10.0-14.5); WHITE BLOOD COUNT 2.4 10^3/uL (4.3-11.0)
[2017-12-06] MEDS ORDERED: NS IV 1000 ML 1,000 ML IV STA (08:11)
[2017-12-06 08:12] LABS: INR 1.1 (0.8-1.4)
[2017-12-06] MEDS ORDERED: LIDOCAINE 1% INJ 20 ML 20 ML VIAL INJ ONE (08:15)
[2017-12-06] MEDS ORDERED: fentaNYL INJECTION 100 MCG/2 ML AMP IVP ONE (08:15)
[2017-12-06] MEDS ORDERED: MIDAZOLAM 2 MG/2 ML (VERSED) VIAL IVP ONE (08:15)
[2017-12-06] MEDS ORDERED: NS IV 1000 ML 1,000 ML ONE (09:07)
[2017-12-06] MEDS ORDERED: HYDROcodone/APAP 5 MG/325 MG (LORTAB) TAB PO PRN (10:30)
--- NOTE | 2017-12-06 10:53 | Pre-Op Note & Conscious Sedat ---
Pre-Operative Progress Note H&P Reviewed The H&P was reviewed, patient examined and no changes noted. Date H&P Reviewed: Dec 06, 2017 Time H&P Reviewed: 08:00 Pre-Op Diagnosis: Right lung mass Conscious Sedation Pre-Proced Time 08:00 ASA Score 2 For ASA 3 and 4: Consider anesthesia and medical clearance. Also, for patients with a history of failed moderate sedation consider anesthesia. Airway Lungs Heart ASA score ASA 1: a normal healthy patient ASA 2: a patient with a mild systemic disease (mid diabetes, controlled hypertension, obesity ASA 3: a patient with a severe systemic disease that limits activity (angina , COPD, prior Myocardial infarction) ASA 4: a patient with an incapacitating disease that is a constant threat to life (CHF, renal failure) ASA 5: a moribund patient not expected to survive 24 hrs. (ruptured aneurysm) ASA 6: a declared brain patient whose organs are being harvested. For emergent operations, add the letter E after the classification Mallampati Classification Grade 1 Sedation Plan Analgesia, Amnesia, Plan communicated to team members, Discussed options with patient/fam, Discussed risks with patient/fam The patient is an appropriate candidate to undergo the planned procedure, sedation, and anesthesia. The patient immediately re-assessed prior to indication. JAN RAE MD Dec 06, 2017 10:53
--- NOTE | 2017-12-06 14:09 | Diagnostic Imaging Report ---
INDICATION: Right upper lobe mass, status post biopsy. Time of exam 11:52 AM Correlation is made with prior study 11/01/2017. Changes of median sternotomy are noted. The heart is enlarged. No pneumothorax is identified, status post right lung biopsy. Right upper lobe density is again noted. There is some central congestive changes seen. There is no effusion. IMPRESSION: No evidence of pneumothorax, status post right lung biopsy. Dictated by: Dictated on workstation # [id number]
--- NOTE | 2017-12-06 14:15 | Diagnostic Imaging Report ---
Indication: Right upper lobe mass. Patient presents for CT guided biopsy. The patient brought to the CT suite and placed on the table in the supine position. Axial imaging through chest was performed to evaluate appropriate entry site. The procedure was performed utilizing conscious sedation. Patient was administered 1 mg of Versed and 25 mcg of fentanyl intravenously. Total procedure time was approximately 14 minutes. Study was performed with radiology nursing and constant patient monitoring. Right chest was prepped and draped in the usual sterile fashion. A small amount of 1% lidocaine was utilized for local anesthesia. A 20-gauge coaxial Temno needle was advanced, placed with its tip along the margin of the mass. A total of 4 core biopsies were obtained. The needle was withdrawn, hemostasis was obtained using manual compression. Followup imaging shows no complicating features. Impression: CT-guided core biopsy of the spiculated mass in the right upper lobe, utilizing conscious sedation. Pathology results are currently pending. Dictated by: Dictated on workstation # [id number]
[2017-12-13] MEDS ORDERED: FEXO-14 PO (07:38)
== END 2017-12-13 09:35 | disposition home or self-care (01) ==
LOC: RAD 07:00 → SDC 10:16 → RAD 12-13 09:35
PROVIDERS: ATTEND Internal Medicine Critical Care Medicine
DX: C34.11 Malignant neoplasm of upper lobe, right bronchus or lung (principal); J96.20 Acute and chronic respiratory failure, unspecified whether with hypoxia or hypercapnia; J43.9 Emphysema, unspecified; J84.9 Interstitial pulmonary disease, unspecified; B96.5 Pseudomonas (aeruginosa) (mallei) (pseudomallei) as the cause of diseases classified elsewhere; Z87.891 Personal history of nicotine dependence; Z99.81 Dependence on supplemental oxygen; Z79.899 Other long term (current) drug therapy
CPT/HCPCS: 36415; 71045; 77012; 85027; 85610; 85730; 88305; 88344; 99156

== ENCOUNTER 2017-12-13 06:43 | Day surgery (SDC) | payer MEDICARE ==
[~2017-12-13] VITALS: Ht 190.5 cm; Wt 154.4 kg
[2017-12-13] VITALS (10 sets, daily range): BP systolic 131–145; BP diastolic 62–80
--- OUTSIDE RECORDS SUMMARY | 2017-12-13 06:46 | XMS REPORT ---
Author Author ROCKY MORRIS Organization [facility] Address [address] [place] [address] Care Team Providers Care Department Helper Name Role Phone ROCKY MORRIS Unavailable PROBLEMS Type Condition ICD9-CM Code CTW09-YR Code Onset Dates Condition Status SNOMED Code Problem Coronary atherosclerosis due to lipid rich plaque I25.83 Active 560542632177366 Problem Panlobular emphysema J43.1 Active 1123968 Problem Atherosclerotic heart disease of makah coronary artery without angina pectoris I25.10 Active 726086398355086 Problem Simple chronic bronchitis J41.0 Active 00190457 Problem Pure hypercholesterolemia E78.00 Active 430309987 Problem COPD with acute exacerbation J44.1 Active 605432235 Problem terminal manager 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 Z79.4 Active 011346494 Problem Type 2 diabetes mellitus with hyperglycemia E11.65 Active 759767023 Problem 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 Active 255202838231 Problem Type 2 diabetes mellitus with other circulatory complications E11.59 Active 50906491 Problem HTN (hypertension) I10 Active 14059994 Problem CAD (coronary artery disease) I25.10 Active 20712381 Problem Hypothyroid E03.9 Active 40483824 Problem COPD (chronic obstructive pulmonary disease) J44.9 Active 39644667 Problem Environmental allergies Z91.09 Active 313689792 Problem Neuropathy G62.9 Active 156357697 Problem 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 99031680445805 Problem 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 Active 58430886899600 Problem Sleep apnea G47.30 Active 38092435 Problem Edema, unspecified type R60.9 Active 498534835 ALLERGIES No Information ENCOUNTERS Encounter Location Date Diagnosis [facility] [address] [facility] [id number] [address] Nov, [facility] [id number] [address] Oct, [place] [address] [address] Oct, [facility] [id number] [place] [address] 13 Oct, 2017 [place] [id number] [place] [address] 64780- 2721 Oct, [place] [id number] [place] [address] 76753- 98[address] 05 Oct, 2017 COPD (chronic obstructive pulmonary disease) J44.9 ; Hypothyroid E03.9 and HTN (hypertension) I10 [place] [id number] [place] [address] 9[address]08- 8296 Aug, COPD (chronic obstructive pulmonary disease) J44.9 ; Hypothyroid E03.9 ; HTN (hypertension) I10 ; Type 2 diabetes mellitus with other circulatory complications E11.59 and BMI 45.0-49.9, adult Z68.42 [place] [id number] [place] [address] 16708[address] 5[address] Aug, [place] [id number] [place] [address] 54677- 1757 Jul, [place] [id number] [place] [address]881- 2[address] Jul, Alcoholism F10.20 ; Parkinson's disease (tremor, stiffness, slow motion, unstable posture) G20 and COPD (chronic obstructive pulmonary disease) J44.9 [place] [address] [address] June, BMI 45.0-49.9, adult Z68.42 and Simple chronic bronchitis J41.0 [place] [id number] [place] [address] 42769- 2704 June, [place] [id number] [place] [address] 92794- 2591 May, HTN (hypertension) I10 and Type 2 diabetes mellitus with other circulatory complications E11.59 [facility] [id number] [place] [address] 6[address] May, [facility] [address] [address] May, COPD exacerbation J44.1 [facility] [address] [address] Apr, Pure hypercholesterolemia E78.00 [facility] [address] [address] Apr, [facility] [address] [address] 17 Mar, 2017 Cough R05 ; COPD with acute exacerbation J44.1 and BMI 45.0 -49.9, adult Z68.42 [place] [address] [address] Mar, [facility] [address] [address] Mar, [place] [address] [address] Feb, [facility] [id number] [place] [address] 77197- 5299 Feb, BMI 45.0-49.9, adult Z68.42 and Acute non-recurrent maxillary sinusitis J01.00 [facility] [id number] [place] [address] 45323- 7265 Feb, [place] [address] [address] Feb, [place] [address] [address] Feb, GERD (gastroesophageal reflux disease) K21.9 [place] [address] [address] Jan, Panlobular emphysema J43.1 ; Type 2 diabetes mellitus with hyperglycemia E11.65 and terminal manager 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 Z79.4 [facility] [id number] [place] [address] 24158- [address] Jan, [facility] [id number] [place] [address] Dec, Chronic obstructive pulmonary disease with acute exacerbation J44.1 ; Cough R05 ; 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 ; Type 2 diabetes mellitus with other circulatory complications E11.59 ; terminal manager 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 Z79.4 and BMI 45.0-49.9, adult Z68.42 [facility] [id number] [place] [address] 41068- 5118 Oct, [facility] [id number] [place] [address] 42946- 8099 Sep, [facility] [id number] [place] [address] 93467- 1485 Aug, [facility] [id number] [place] [address] 27938- 8952 May, [facility] [id number] [place] [address] 66899- 2314 May, [facility] [id number] [place] [address] 89214- 0474 Apr, [facility] [id number] [place] [address] 41839- 8432 Apr, [facility] [id number] [place] [address] 34425- 8450 Apr, [facility] [id number] [place] [address] 61147- 4958 Apr, 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 ; GERD (gastroesophageal reflux disease) K21.9 ; HTN ( hypertension) I10 ; Environmental allergies Z91.09 ; COPD (chronic obstructive pulmonary disease) J44.9 ; Sleep apnea G47.30 ; Hypothyroid E03.9 ; Neuropathy G62.9 ; Pure hypercholesterolemia E78.00 ; Atherosclerotic heart disease of makah coronary artery without angina pectoris I25.10 ; Coronary atherosclerosis due to lipid rich plaque I25.83 and Edema, unspecified type R60.9 [facility] [place] [id number] Mar, COPD (chronic obstructive pulmonary disease) J44.9 ; Alcoholism F10.20 and 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 [facility] [place] [id number] Mar, Open wound T14.8 [place] [id number] [place] [address] 9[address]- [address] Mar, Environmental allergies Z91.09 ; Open wound, lower leg, right, initial encounter S81.801A ; GERD (gastroesophageal reflux disease) K21.9 ; Hypothyroid E03.9 ; Hypercholesterolemia E78.0 ; Sleep apnea G47.30 ; Neuropathy G62.9 ; Edema, unspecified type R60.9 ; 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 ; Coronary artery disease involving makah coronary artery of makah heart without angina pectoris I25.10 ; 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 and COPD (chronic obstructive pulmonary disease) J44.9 [place] [id number] [place] [address] 3[address] Mar, [place] [id number] [place] [address] 63335- 7865 Mar, [place] [address] [address] [id number] [place] [address] 22471- 7573 Mar, [facility] [address] [place] [id number] Mar, Alcoholism F10.20 ; 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 ; COPD (chronic obstructive pulmonary disease) J44.9 and Sleep apnea G47.30 [place] [id number] [place] [address] 42471- 4470 Mar, [place] [id number] [place] [address] 89647- 9794 Mar, [address] [address] Feb, 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 ; GERD (gastroesophageal reflux disease) K21.9 ; Hypothyroid E03.9 ; Sleep apnea G47.30 ; Parkinson's disease (tremor, stiffness , slow motion, unstable posture) G20 ; CAD (coronary artery disease) I25.10 ; Edema, unspecified type R60.9 ; COPD (chronic obstructive pulmonary disease) J44.9 and Neuropathy G62.[address] [address] Jan, HTN (hypertension) I10 [address] [address] Jan, COPD (chronic obstructive pulmonary disease) J44.9 ; Hypothyroid E03.9 ; Environmental allergies Z91.09 ; 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 ; Hypercholesterolemia E78.0 ; Sleep apnea G47.30 ; CAD (coronary artery disease) I25.10 ; HTN (hypertension ) I10 ; GERD (gastroesophageal reflux disease) K21.9 ; Anemia D64.9 and Edema, unspecified type R60.9 [place] [id number] [place] [address] 23284- 5122 Dec, [address] [address] Dec, 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.39 ; GERD (gastroesophageal reflux disease) K21.9 ; HTN ( hypertension) I10 ; Hypothyroid E03.9 ; Environmental allergies Z91.09 ; Sleep apnea G47.30 ; CAD (coronary artery disease) I25.10 ; Hypercholesterolemia E78.0 and COPD (chronic obstructive pulmonary disease) J44.9 [place] [id number] [place] [address] 64712- 6099 Oct, [place] [id number] [place] [address] 38417- 6307 Aug, 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.39 ; GERD (gastroesophageal reflux disease) K21.9 ; Hypothyroid E03.9 ; Environmental allergies Z91.09 ; CAD (coronary artery disease) I25.10 ; Hypercholesterolemia E78.0 ; COPD (chronic obstructive pulmonary disease) J44.9 and Sleep apnea G47.30 [place] [id number] [place] [address] 38890- 3575 Jul, COPD (chronic obstructive pulmonary disease) J44.9 [place] [address] [id number] [place] [address] 77269- 6796 June, [place] [id number] [place] [address] 22594- 8388 May, [place] [id number] [place] [address] 65613- 9944 Apr, COPD (chronic obstructive pulmonary disease) J44.9 ; Sleep apnea G47.30 ; HTN (hypertension) I10 ; Hypothyroid E03.9 ; Environmental allergies Z91.09 ; CAD (coronary artery disease) I25.10 ; Hypercholesterolemia E78.0 and 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 [place] [id number] [place] [address] 93622- 5148 Apr, [place] [id number] [place] [address] 59294- 5418 Mar, [place] [id number] [place] [address] 66920- 4999 Mar, [place] [id number] [place] [address] 30646- 2375 Feb, [place] [id number] [place] [address] 72425- 7418 Feb, 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 ; Hypothyroid E03.9 ; HTN (hypertension) I10 ; COPD ( chronic obstructive pulmonary disease) J44.9 ; Sleep apnea G47.30 ; Hypercholesterolemia E78.0 ; Environmental allergies Z91.09 ; Diarrhea R19.7 and GERD (gastroesophageal reflux disease) K21.9 [facility] [address] [address] Feb, [facility] [id number] [place] [address] 34578- 0467 Jan, [facility] [id number] [place] [address] 86513- 1315 Jan, [place] [id number] [place] [address] 19628- 5304 Jan, [place] [id number] [place] [address] 15222- 3253 Jan, Anemia D64.9 [place] [id number] [place] [address] 16983- 0853 Jan, [place] [id number] [place] [address] 87903- 0858 10 Jan, 2015 Type 2 diabetes mellitus [...] a day 1 tablet as needed 8h Oct, 15 days Active RESULTS No Results PROCEDURES [...] pneumonia 07/2015 Hospitalization History [facility] allergic reaction 03/2016 Hospitalization History [facility] spent 2 weeks 03/2016 Hospitalization History [facility]- Pneumonia, COPD with Acute Exacerbation 05/19/2017
--- OUTSIDE RECORDS SUMMARY | 2017-12-13 06:46 | XMS REPORT ---
Author Author ROCKY MORRIS Organization [facility] Address [address] [place] [address] Care Team Providers Care Aluminum Siding Installer Name Role Phone ROCKY MORRIS Unavailable PROBLEMS Type Condition ICD9-CM Code TCN10-ZO Code Onset Dates Condition Status SNOMED Code Problem Coronary atherosclerosis due to lipid rich plaque I25.83 Active [id number] Problem Panlobular emphysema J43.1 Active 8304097 Problem Atherosclerotic heart disease of [place] coronary artery without angina pectoris I25.10 Active 019107117481595 Problem Simple chronic bronchitis J41.0 Active 00900652 Problem Pure hypercholesterolemia E78.00 Active 869870220 Problem COPD with acute exacerbation J44.1 Active 716560201 Problem salvage determiner 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 Z79.4 Active 983857692 Problem Type 2 diabetes mellitus with hyperglycemia E11.65 Active 066594347 Problem 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 Active 861832387074 Problem Type 2 diabetes mellitus with other circulatory complications E11.59 Active 21427270 Problem HTN (hypertension) I10 Active 35411158 Problem CAD (coronary artery disease) I25.10 Active 66118991 Problem Hypothyroid E03.9 Active 64505583 Problem COPD (chronic obstructive pulmonary disease) J44.9 Active 77400866 Problem Environmental allergies Z91.09 Active 321448852 Problem Neuropathy G62.9 Active 179179450 Problem 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 68953219162497 Problem 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 Active 83877368485560 Problem Sleep apnea G47.30 Active 68716754 Problem Edema, unspecified type R60.9 Active [id number] ALLERGIES No Information ENCOUNTERS Encounter Location Date Diagnosis [facility] [address] [facility] [id number] [address] Nov, [facility] [address] [id number] [address] Oct, [place] [address] [address] Oct, [facility] [id number] [place] [address] 81212- 4645 13 Oct, 2017 [place] [id number] [place] [address] 24148- 6646 Oct, [place] [id number] [place] [address] 37253- 6485 05 Oct, 2017 COPD (chronic obstructive pulmonary disease) J44.9 ; Hypothyroid E03.9 and HTN (hypertension) I10 [place] [id number] [place] [address] 37104- 8292 Aug, COPD (chronic obstructive pulmonary disease) J44.9 ; Hypothyroid E03.9 ; HTN (hypertension) I10 ; Type 2 diabetes mellitus with other circulatory complications E11.59 and BMI 45.0-49.9, adult Z68.42 [place] [id number] [place] [address] 93339- 1562 Aug, [place] [id number] [place] [address] 99333- 0689 Jul, [place] [id number] [place] [address] 53526- 1329 Jul, Alcoholism F10.20 ; Parkinson's disease (tremor, stiffness, slow motion, unstable posture) G20 and COPD (chronic obstructive pulmonary disease) J44.9 [place] [address] [address] June, BMI 45.0-49.9, adult Z68.42 and Simple chronic bronchitis J41.0 [place] [address] [place] [address] 01935- 5165 June, [place] [id number] [place] [address] 54063- 8368 May, HTN (hypertension) I10 and Type 2 diabetes mellitus with other circulatory complications E11.59 [facility] [id number] [place] [address] 52008- 2401 May, [facility] [address] [address]158- [address]11 May, COPD exacerbation J44.1 [facility] [address] [address]- [address]113 Apr, Pure hypercholesterolemia E78.00 [facility] [address] 95391- 2753 Apr, [facility] [address] [address] 17 Mar, 2017 Cough R05 ; COPD with acute exacerbation J44.1 and BMI 45.0 -49.9, adult Z68.42 [place] [address] 54234- [address] Mar, [facility] [address] [address]- [address] Mar, [place] [address] 45885- 6367 Feb, [facility] [id number] [place] [address] 94479- 7573 Feb, BMI 45.0-49.9, adult Z68.42 and Acute non-recurrent maxillary sinusitis J01.00 [facility] [id number] [place] [address] 53375- 2064 Feb, [place] [address] 26484- 5393 Feb, [place] [address] 85796- 4546 Feb, GERD (gastroesophageal reflux disease) K21.9 [place] [address] 18748- 5792 Jan, Panlobular emphysema J43.1 ; Type 2 diabetes mellitus with hyperglycemia E11.65 and salvage determiner 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 Z79.4 [facility] [id number] [place] [address] 18777- 6418 Jan, [facility] [address] [place] [address] 82545 -9174 Dec, Chronic obstructive pulmonary disease with acute exacerbation J44.1 ; Cough R05 ; 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 ; Type 2 diabetes mellitus with other circulatory complications E11.59 ; salvage determiner 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 Z79.4 and BMI 45.0-49.9, adult Z68.42 [facility] [id number] [place] [address] 84782- 1002 Oct, [facility] [id number] [place] [address] 88544- 4512 Sep, [facility] [id number] [place] [address] 94940- 0840 Aug, [facility] [id number] [place] [address] 06411- 7938 May, [facility] [id number] [place] [address] 32176- 0235 May, [facility] [id number] [place] [address] 34110- 8332 Apr, [facility] [id number] [place] [address] 05989- 3172 Apr, [facility] [id number] [place] [address] 11348- 5294 Apr, [facility] [id number] [place] [address] 45332- 6503 Apr, 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 ; GERD (gastroesophageal reflux disease) K21.9 ; HTN ( hypertension) I10 ; Environmental allergies Z91.09 ; COPD (chronic obstructive pulmonary disease) J44.9 ; Sleep apnea G47.30 ; Hypothyroid E03.9 ; Neuropathy G62.9 ; Pure hypercholesterolemia E78.00 ; Atherosclerotic heart disease of [place] coronary artery without angina pectoris I25.10 ; Coronary atherosclerosis due to lipid rich plaque I25.83 and Edema, unspecified type R60.9 [facility] [place] [id number] Mar, COPD (chronic obstructive pulmonary disease) J44.9 ; Alcoholism F10.20 and 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 [facility] [place] [id number] Mar, Open wound T14.8 [place] [id number] [place] [address] 42730- 4201 Mar, Environmental allergies Z91.09 ; Open wound, lower leg, right, initial encounter S81.801A ; GERD (gastroesophageal reflux disease) K21.9 ; Hypothyroid E03.9 ; Hypercholesterolemia E78.0 ; Sleep apnea G47.30 ; Neuropathy G62.9 ; Edema, unspecified type R60.9 ; 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 ; Coronary artery disease involving [place] coronary artery of [place] heart without angina pectoris I25.10 ; 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 and COPD (chronic obstructive pulmonary disease) J44.9 [place] [address] [place] [address] 69047- 5997 Mar, [place] [id number] [place] [address] 97964- 8251 Mar, [place] [id number] [place] [address] 00803- 8264 Mar, [facility] [address] [place] [id number] Mar, Alcoholism F10.20 ; Type 2 diabetes mellitus with other diabetic ophthalmic complication E11.39 ; COPD (chronic obstructive pulmonary disease) J44.9 and Sleep apnea G47.30 [place] [id number] [place] [address] 38518- 3108 Mar, [place] [id number] [place] [address] 20688- 6432 Mar, [address] [address] Feb, 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.39 ; GERD (gastroesophageal reflux disease) K21.9 ; Hypothyroid E03.9 ; Sleep apnea G47.30 ; Parkinson's disease (tremor, stiffness , slow motion, unstable posture) G20 ; CAD (coronary artery disease) I25.10 ; Edema, unspecified type R60.9 ; COPD (chronic obstructive pulmonary disease) J44.9 and Neuropathy G62.[address] [address]- [address] Jan, HTN (hypertension) I10 [address] 12482- [address] Jan, COPD (chronic obstructive pulmonary disease) J44.9 ; Hypothyroid E03.9 ; Environmental allergies Z91.09 ; 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 ; Hypercholesterolemia E78.0 ; Sleep apnea G47.30 ; CAD (coronary artery disease) I25.10 ; HTN (hypertension ) I10 ; GERD (gastroesophageal reflux disease) K21.9 ; Anemia D64.9 and Edema, unspecified type R60.9 [place] [id number] [place] [address] 77489- 5788 Dec, [address] 22637- 1659 Dec, Type 2 diabetes mellitus with other diabetic ophthalmic complication E11.39 ; GERD (gastroesophageal reflux disease) K21.9 ; HTN ( hypertension) I10 ; Hypothyroid E03.9 ; Environmental allergies Z91.09 ; Sleep apnea G47.30 ; CAD (coronary artery disease) I25.10 ; Hypercholesterolemia E78.0 and COPD (chronic obstructive pulmonary disease) J44.9 [place] [id number] [place] [address] 40219- 5340 Oct, [place] [address] [place] [address] 07807- 9607 Aug, Type 2 diabetes mellitus with other diabetic ophthalmic complication E11.39 ; GERD (gastroesophageal reflux disease) K21.9 ; Hypothyroid E03.9 ; Environmental allergies Z91.09 ; CAD (coronary artery disease) I25.10 ; Hypercholesterolemia E78.0 ; COPD (chronic obstructive pulmonary disease) J44.9 and Sleep apnea G47.30 [place] [id number] [place] [address] 50521- 8213 Jul, COPD (chronic obstructive pulmonary disease) J44.9 [place] [id number] [place] [address] 74701- 0172 June, [place] [id number] [place] [address] 22506- 6142 May, [place] [id number] [place] [address] 60399- 1449 Apr, COPD (chronic obstructive pulmonary disease) J44.9 ; Sleep apnea G47.30 ; HTN (hypertension) I10 ; Hypothyroid E03.9 ; Environmental allergies Z91.09 ; CAD (coronary artery disease) I25.10 ; Hypercholesterolemia E78.0 and Type 2 diabetes mellitus with other diabetic ophthalmic complication E11.39 [place] [address] [place] [address] 00896- 8553 Apr, [place] [id number] [place] [address] 33047- 9895 Mar, [place] [id number] [place] [address] 09207- 0316 Mar, [place] [id number] [place] [address] 94620- 4845 Feb, [place] [id number] [place] [address] 26534- 2169 Feb, Type 2 diabetes mellitus with other diabetic ophthalmic complication E11.39 ; Hypothyroid E03.9 ; HTN (hypertension) I10 ; COPD ( chronic obstructive pulmonary disease) J44.9 ; Sleep apnea G47.30 ; Hypercholesterolemia E78.0 ; Environmental allergies Z91.09 ; Diarrhea R19.7 and GERD (gastroesophageal reflux disease) K21.9 [facility] [address], [place] [address] Feb, [facility] [id number] [place] [address] 69372- 2412 Jan, [place] [id number] [place] [address] 49409- 8140 Jan, [place] [id number] [place] [address] 78781- 4607 Jan, [place] [id number] [place] [address] 10506- 7144 Jan, Anemia D64.9 [place] [id number] [place] [address] 74030- 0945 Jan, [place] [id number] [place] [address] 22453- 7652 10 Jan, 2015 Type 2 diabetes mellitus with other diabetic ophthalmic complication E11.39 ; Hypothyroid E03.9 ; HTN (hypertension) I10 ; COPD ( chronic obstructive pulmonary disease) J44.9 ; Sleep apnea G47.30 ; Hypercholesterolemia E78.0 ; CAD (coronary artery disease) I25.10 and Environmental allergies Z91.09 IMMUNIZATIONS No Known Immunizations SOCIAL HISTORY Never Assessed REASON FOR VISIT Refill Request PLAN OF CARE VITAL SIGNS MEDICATIONS Medication Instructions Dosage Frequency Start Date End Date Duration Status Metoprolol Succinate 100 mg Orally Once a day (total of 150 mg) 2 tablets 30 days Active RESULTS No Results PROCEDURES No [...] esophageal wrap Hospitalization History lung infection at [facility] 09/2014 Hospitalization History double pneumonia 04/2015 Hospitalization History Double pneumonia 07/2015 Hospitalization History [facility] allergic reaction 03/2016 Hospitalization History [facility] spent 2 weeks 03/2016 Hospitalization History [facility] Pneum[facility], COPD with Acute Exacerbation 05/19/2017
--- OUTSIDE RECORDS SUMMARY | 2017-12-13 06:46 | XMS REPORT ---
Author Author ROCKY MORRIS Organization [facility] [place] Address [address] [place] [address] Care Team Providers Care Telecommunications Technician Name Role Phone ROCKY MORRIS Unavailable PROBLEMS Type Condition ICD9-CM Code KZO33-CY Code Onset Dates Condition Status SNOMED Code Problem Coronary atherosclerosis due to lipid rich plaque I25.83 Active 425244975857720 Problem Panlobular emphysema J43.1 Active 9704286 Problem Atherosclerotic heart disease of [place] coronary artery without angina pectoris I25.10 Active [id number] Problem Simple chronic bronchitis J41.0 Active 37007272 Problem Pure hypercholesterolemia E78.00 Active 331719322 Problem COPD with acute exacerbation J44.1 Active 295277780 Problem 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 Active 694735749 Problem Type 2 diabetes mellitus with hyperglycemia E11.65 Active 752199134 Problem 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 Active 202470503780 Problem Type 2 diabetes mellitus with other circulatory complications E11.59 Active 58019718 Problem HTN (hypertension) I10 Active 20145960 Problem CAD (coronary artery disease) I25.10 Active 63976501 Problem Hypothyroid E03.9 Active 65670614 Problem COPD (chronic obstructive pulmonary disease) J44.9 Active 19818409 Problem Environmental allergies Z91.09 Active 777746681 Problem Neuropathy G62.9 Active 836179362 Problem 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 23647426071757 Problem 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 Active 05977584802429 Problem Sleep apnea G47.30 Active 77609082 Problem Edema, unspecified type R60.9 Active 846261921 ALLERGIES No Information ENCOUNTERS Encounter Location Date Diagnosis [facility] [place] [address] [facility] [id number] [address] Nov, [facility] [place] [address] [id number] [address] Nov, Seborrheic keratosis L82.1 and Pneumonia of right upper lobe due to infectious organism J18.1 [place] [id number] [place] [address] 75733- 2557 27 Oct, 2017 [place] [id number] [place] [address] 42269- 8559 Oct, [place] [address] [address] Oct, [place] [id number] [place] [address] 83006- 9389 Oct, [place] [address] [address]- [address] 05 Oct, 2017 COPD (chronic obstructive pulmonary disease) J44.9 ; Hypothyroid E03.9 and HTN (hypertension) I10 [address] [address] Aug, COPD (chronic obstructive pulmonary disease) J44.9 ; Hypothyroid E03.9 ; HTN (hypertension) I10 ; Type 2 diabetes mellitus with other circulatory complications E11.59 and BMI 45.0-49.9, adult Z68.42 [place] [id number] [place] [address] 71374- 1326 Aug, [place] [id number] [place] [address] 43909- 1175 Jul, [place] [address] [address]- [address] Jul, Alcoholism F10.20 ; Parkinson's disease (tremor, stiffness, slow motion, unstable posture) G20 and COPD (chronic obstructive pulmonary disease) J44.9 [place] [id number] [place] [address] 33352- 9629 June, BMI 45.0-49.9, adult Z68.42 and Simple chronic bronchitis J41.[address] [address]- [address] June, [facility] [place] [id number] [place] [address] 50131- 1811 May, HTN (hypertension) I10 and Type 2 diabetes mellitus with other circulatory complications E11.59 [facility] [place] [id number] [place] [address] 65096- 1796 May, [facility] [place] [address] [address] May, COPD exacerbation J44.1 [facility] [place] [address] [address]- [address] Apr, Pure hypercholesterolemia E78.00 [facility] [place] [address] 00[address]- 9207 Apr, [facility] [address] [address] Mar, Cough R05 ; COPD with acute exacerbation J44.1 and BMI 45.0 -49.9, adult Z68.42 [place] [id number] [place] [address] 82941- 3699 Mar, [facility] [place] [id number] [place] [address] 33955- 1271 Mar, [facility] [place] [id number] [place] [address] 22942- 1285 Feb, [facility] [place] [address] [address]- [address]88 Feb, BMI 45.0-49.9, adult Z68.42 and Acute non-recurrent maxillary sinusitis J01.00 [facility] [place] [address] 21724- 2403 Feb, [facility] [place] [id number] [place] [address] 82156- 7342 Feb, [facility] [place] [address] [place] [address] Feb, GERD (gastroesophageal reflux disease) K21.9 [facility] [place] [id number] [place] [address] 270758- 5893 Jan, Panlobular emphysema J43.1 ; Type 2 diabetes mellitus with hyperglycemia E11.65 and FDC 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 Z79.4 [facility] [place] [id number] [place] [address] 16298- 2482 Jan, [facility] [id number] [place] [address] 64777 -5336 Dec, Chronic obstructive pulmonary disease with acute exacerbation J44.1 ; Cough R05 ; 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 ; Type 2 diabetes mellitus with other circulatory complications E11.59 ; FDC 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 Z79.4 and BMI 45.0-49.9, adult Z68.42 [facility] [place] [id number] [place] [address] 12777- 0316 Oct, [facility] [place] [id number] [place] [address] 12122- 7392 Sep, [facility] [place] [id number] [place] [address] 50174- 4242 Aug, [facility] [place] [id number] [place] [address] 308314- 4965 May, [facility] [place] [id number] [place] [address] 06311- 2086 May, [facility] [place] [id number] [place] [address] 17798- 7658 Apr, [facility] [place] [address] 33015- 5842 Apr, [facility] [place] [id number] [place] [address] 29921- 2066 Apr, [facility] [place] [id number] [place] [address] [id number]- 6303 Apr, 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 ; GERD (gastroesophageal reflux disease) K21.9 ; HTN ( hypertension) I10 ; Environmental allergies Z91.09 ; COPD (chronic obstructive pulmonary disease) J44.9 ; Sleep apnea G47.30 ; Hypothyroid E03.9 ; Neuropathy G62.9 ; Pure hypercholesterolemia E78.00 ; Atherosclerotic heart disease of [place] coronary artery without angina pectoris I25.10 ; Coronary atherosclerosis due to lipid rich plaque I25.83 and Edema, unspecified type R60.[address] [facility] [address] [place] [address] [id number] Mar, COPD (chronic obstructive pulmonary disease) J44.9 ; Alcoholism F10.20 and 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 [facility] [address] [place] [address] [id number] Mar, Open wound T14.8 [place] [id number] [place] [address] 84657- 8633 Mar, Environmental allergies Z91.09 ; Open wound, lower leg, right, initial encounter S81.801A ; GERD (gastroesophageal reflux disease) K21.9 ; Hypothyroid E03.9 ; Hypercholesterolemia E78.0 ; Sleep apnea G47.30 ; Neuropathy G62.9 ; Edema, unspecified type R60.9 ; 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 ; Coronary artery disease involving [place] coronary artery of [place] heart without angina pectoris I25.10 ; 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 and COPD (chronic obstructive pulmonary disease) J44.9 [place] [id number] [place] [address] 24728- 9170 Mar, [place] [id number] [place] [address] 89835- 2129 Mar, [place] [id number] [place] [address] 79857- 3188 Mar, [facility] [address] [place] [address] [id number] Mar, Alcoholism F10.20 ; 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 ; COPD (chronic obstructive pulmonary disease) J44.9 and Sleep apnea G47.30 [place] [id number] [place] [address] 85435- 9559 Mar, [place] [id number] [place] [address] 14164- 4145 Mar, [place] [id number] [place] [address] 73997- 0386 Feb, 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 ; GERD (gastroesophageal reflux disease) K21.9 ; Hypothyroid E03.9 ; Sleep apnea G47.30 ; Parkinson's disease (tremor, stiffness , slow motion, unstable posture) G20 ; CAD (coronary artery disease) I25.10 ; Edema, unspecified type R60.9 ; COPD (chronic obstructive pulmonary disease) J44.9 and Neuropathy G62.9 [place] [id number] [place] [address] 11561- 1479 Jan, HTN (hypertension) I10 [place] [id number] [place] [address] 20194- 8148 Jan, COPD (chronic obstructive pulmonary disease) J44.9 ; Hypothyroid E03.9 ; Environmental allergies Z91.09 ; 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 ; Hypercholesterolemia E78.0 ; Sleep apnea G47.30 ; CAD (coronary artery disease) I25.10 ; HTN (hypertension ) I10 ; GERD (gastroesophageal reflux disease) K21.9 ; Anemia D64.9 and Edema, unspecified type R60.9 [place] [id number] [place] [address] 80169- 9617 Dec, [place] [id number] [place] [address] 07187- 6539 Dec, 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 ; GERD (gastroesophageal reflux disease) K21.9 ; HTN ( hypertension) I10 ; Hypothyroid E03.9 ; Environmental allergies Z91.09 ; Sleep apnea G47.30 ; CAD (coronary artery disease) I25.10 ; Hypercholesterolemia E78.0 and COPD (chronic obstructive pulmonary disease) J44.9 [facility] [place] [address] [address] Oct, [facility] [place] [id number] [place] [address] 25165- 9605 Aug, 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 ; GERD (gastroesophageal reflux disease) K21.9 ; Hypothyroid E03.9 ; Environmental allergies Z91.09 ; CAD (coronary artery disease) I25.10 ; Hypercholesterolemia E78.0 ; COPD (chronic obstructive pulmonary disease) J44.9 and Sleep apnea G47.30 [place] [id number] [place] [address] 05080- 6065 Jul, COPD (chronic obstructive pulmonary disease) J44.9 [place] [id number] [place] [address] 63088- 6840 June, [place] [id number] [place] [address] 44094- 1811 May, [facility] [place] [id number] [place] [address] 42336- 1789 Apr, COPD (chronic obstructive pulmonary disease) J44.9 ; Sleep apnea G47.30 ; HTN (hypertension) I10 ; Hypothyroid E03.9 ; Environmental allergies Z91.09 ; CAD (coronary artery disease) I25.10 ; Hypercholesterolemia E78.0 and 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 [place] [address] [address] Apr, [place] [id number] [place] [address] 10477- 6392 Mar, [place] [id number] [place] [address] 80893- 5146 Mar, [place] [id number] [place] [address] 01330- 5686 Feb, [place] [id number] [place] [address] 12794- 5819 Feb, 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.39 ; Hypothyroid E03.9 ; HTN (hypertension) I10 ; COPD ( chronic obstructive pulmonary disease) J44.9 ; Sleep apnea G47.30 ; Hypercholesterolemia E78.0 ; Environmental allergies Z91.09 ; Diarrhea R19.7 and GERD (gastroesophageal reflux disease) K21.9 [place] [id number] [place] [address] 83837- 9007 Feb, [place] [id number] [place] [address] 84570- 6394 Jan, [place] [id number] [place] [address] 85036- 8199 Jan, [place] [id number] [place] [address] 67133- 2135 Jan, [place] [id number] [place] [address] 30703- 1799 Jan, Anemia D64.9 [place] [id number] [place] [address] 97148- 4065 Jan, [place] [id number] [place] [address] 73639- 5835 10 Jan, 2015 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 ; Hypothyroid E03.9 ; HTN (hypertension) I10 ; COPD ( chronic obstructive pulmonary disease) J44.9 ; Sleep apnea G47.30 ; Hypercholesterolemia E78.0 ; CAD (coronary artery disease) I25.10 and Environmental allergies Z91.09 IMMUNIZATIONS No Known Immunizations SOCIAL HISTORY Never Assessed REASON FOR VISIT Updated Referral PLAN OF CARE VITAL SIGNS MEDICATIONS Unknown [...] Surgical History appendectomy Surgical History esophageal wrap Surgical History Biopsy - check for cancer 10/2017 Hospitalization History lung infection at [facility] 09/2014 Hospitalization History double pneumonia 04/2015 Hospitalization History Double pneumonia 07/2015 Hospitalization History [facility] allergic reaction 03/2016 Hospitalization History [facility] spent 2 weeks 03/2016 Hospitalization History [facility]- Pneumonia, COPD with Acute Exacerbation 05/19/2017
--- OUTSIDE RECORDS SUMMARY | 2017-12-13 06:46 | XMS REPORT ---
Author Author ROCKY MORRIS Organization [facility] Address [address] [place] [address] Care Team Providers Care Rn Liaison Name Role Phone ROCKY MORRIS Unavailable PROBLEMS Type Condition ICD9-CM Code UQP32-SU Code Onset Dates Condition Status SNOMED Code Problem Coronary atherosclerosis due to lipid rich plaque I25.83 Active 566876717807731 Problem Panlobular emphysema J43.1 Active 8173925 Problem Atherosclerotic heart disease of hughes coronary artery without angina pectoris I25.10 Active 669279652342182 Problem Simple chronic bronchitis J41.0 Active 57187755 Problem Pure hypercholesterolemia E78.00 Active 077745964 Problem COPD with acute exacerbation J44.1 Active 562076231 Problem 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 Active 994868029 Problem Type 2 diabetes mellitus with hyperglycemia E11.65 Active 225960009 Problem 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 Active 742429305376 Problem Type 2 diabetes mellitus with other circulatory complications E11.59 Active 66573361 Problem HTN (hypertension) I10 Active 83998845 Problem CAD (coronary artery disease) I25.10 Active 15311753 Problem Hypothyroid E03.9 Active 75054095 Problem COPD (chronic obstructive pulmonary disease) J44.9 Active 96190421 Problem Environmental allergies Z91.09 Active 483508685 Problem Neuropathy G62.9 Active 620506027 Problem 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 16089958186446 Problem 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 Active 76909719298219 Problem Sleep apnea G47.30 Active 03222966 Problem Edema, unspecified type R60.9 Active 055548210 ALLERGIES No Information ENCOUNTERS Encounter Location Date Diagnosis [facility] [address] [facility] [id number] [address] Nov, [facility] [id number] [address] Oct, [place] [address] [address] Oct, [facility] [id number] [place] [address]888- 4118 13 Oct, 2017 [place] [id number] [place] [address] 14572- 0110 Oct, [place] [id number] [place] [address] 63808- 4862 05 Oct, 2017 COPD (chronic obstructive pulmonary disease) J44.9 ; Hypothyroid E03.9 and HTN (hypertension) I10 [place] [id number] [place] [address] 86950- 6768 Aug, COPD (chronic obstructive pulmonary disease) J44.9 ; Hypothyroid E03.9 ; HTN (hypertension) I10 ; Type 2 diabetes mellitus with other circulatory complications E11.59 and BMI 45.0-49.9, adult Z68.42 [place] [id number] [place] [address] 14873- 5419 Aug, [place] [id number] [place] [address] 88017- 9304 Jul, [place] [id number] [place] [address] 48536- 2550 Jul, Alcoholism F10.20 ; Parkinson's disease (tremor, stiffness, slow motion, unstable posture) G20 and COPD (chronic obstructive pulmonary disease) J44.9 [place] [address] [address] June, BMI 45.0-49.9, adult Z68.42 and Simple chronic bronchitis J41.0 [place] [address] [place] [address] 74165- 0346 June, [place] [id number] [place] [address] 72100- 6317 May, HTN (hypertension) I10 and Type 2 diabetes mellitus with other circulatory complications E11.59 [facility] [id number] [place] [address] 78401- 3113 May, [facility] [address] [address] May, COPD exacerbation J44.1 [facility] [address] 7[address]- [address]76 Apr, Pure hypercholesterolemia E78.00 [facility] [address] 8[address]58- 9179 Apr, [facility] [address] [address] 17 Mar, 2017 Cough R05 ; COPD with acute exacerbation J44.1 and BMI 45.0 -49.9, adult Z68.42 [place] [address] [address]- [address] Mar, [facility] [address] [address] Mar, [place] [address] 92482- 3936 Feb, [facility] [id number] [place] [address] 83790- 4036 Feb, BMI 45.0-49.9, adult Z68.42 and Acute non-recurrent maxillary sinusitis J01.00 [facility] [id number] [place] [address] 64536- 2122 Feb, [place] [address] 8[address]49- 8479 Feb, [place] [address] 09802- 6211 Feb, GERD (gastroesophageal reflux disease) K21.9 [place] [address] [address]- [address] Jan, Panlobular emphysema J43.1 ; Type 2 diabetes mellitus with hyperglycemia E11.65 and 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 [facility] [id number] [place] [address] 10317- 4590 Jan, [facility] [id number] [place] [address] 32202 -0492 Dec, Chronic obstructive pulmonary disease with acute exacerbation J44.1 ; Cough R05 ; 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 ; Type 2 diabetes mellitus with other circulatory complications E11.59 ; 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 and BMI 45.0-49.9, adult Z68.42 [facility] [id number] [place] [address] 78287- 9009 Oct, [facility] [id number] [place] [address] 98015- 7974 Sep, [facility] [id number] [place] [address] 92015- 4473 Aug, [facility] [id number] [place] [address] 32975- 8961 May, [facility] [id number] [place] [address] 62634- 4329 May, [facility] [id number] [place] [address] 93711- 9808 Apr, [facility] [id number] [place] [address] 81282- 7258 Apr, [facility] [id number] [place] [address] 30083- 8638 Apr, [facility] [id number] [place] [address] 50820- 7402 Apr, 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 ; GERD (gastroesophageal reflux disease) K21.9 ; HTN ( hypertension) I10 ; Environmental allergies Z91.09 ; COPD (chronic obstructive pulmonary disease) J44.9 ; Sleep apnea G47.30 ; Hypothyroid E03.9 ; Neuropathy G62.9 ; Pure hypercholesterolemia E78.00 ; Atherosclerotic heart disease of hughes coronary artery without angina pectoris I25.10 ; Coronary atherosclerosis due to lipid rich plaque I25.83 and Edema, unspecified type R60.9 [facility] [place] [id number] Mar, COPD (chronic obstructive pulmonary disease) J44.9 ; Alcoholism F10.20 and 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 [facility] [place] [id number] Mar, Open wound T14.8 [place] [address] [place] [address] 15904- 2042 Mar, Environmental allergies Z91.09 ; Open wound, lower leg, right, initial encounter S81.801A ; GERD (gastroesophageal reflux disease) K21.9 ; Hypothyroid E03.9 ; Hypercholesterolemia E78.0 ; Sleep apnea G47.30 ; Neuropathy G62.9 ; Edema, unspecified type R60.9 ; 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 ; Coronary artery disease involving hughes coronary artery of hughes heart without angina pectoris I25.10 ; 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 and COPD (chronic obstructive pulmonary disease) J44.9 [place] [address] [place] [address] 47672- 6856 Mar, [place] [id number] [place] [address] 13315- 7573 Mar, [place] [address] [place] [address] 44743- 7517 Mar, [facility] [address] [place] [id number] Mar, Alcoholism F10.20 ; 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.39 ; COPD (chronic obstructive pulmonary disease) J44.9 and Sleep apnea G47.30 [place] [id number] [place] [address] 62577- 4189 Mar, [place] [address] [place] [address] 98103- 8730 Mar, [address] [address]- [address] Feb, 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 ; GERD (gastroesophageal reflux disease) K21.9 ; Hypothyroid E03.9 ; Sleep apnea G47.30 ; Parkinson's disease (tremor, stiffness , slow motion, unstable posture) G20 ; CAD (coronary artery disease) I25.10 ; Edema, unspecified type R60.9 ; COPD (chronic obstructive pulmonary disease) J44.9 and Neuropathy G62.[address] [address]- [address] Jan, HTN (hypertension) I10 [address] 9[address]35- 5186 Jan, COPD (chronic obstructive pulmonary disease) J44.9 ; Hypothyroid E03.9 ; Environmental allergies Z91.09 ; 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 ; Hypercholesterolemia E78.0 ; Sleep apnea G47.30 ; CAD (coronary artery disease) I25.10 ; HTN (hypertension ) I10 ; GERD (gastroesophageal reflux disease) K21.9 ; Anemia D64.9 and Edema, unspecified type R60.9 [place] [id number] [place] [address] 43778- 5875 Dec, [address] 38219- 4059 Dec, Type 2 diabetes mellitus with other diabetic ophthalmic complication E11.39 ; GERD (gastroesophageal reflux disease) K21.9 ; HTN ( hypertension) I10 ; Hypothyroid E03.9 ; Environmental allergies Z91.09 ; Sleep apnea G47.30 ; CAD (coronary artery disease) I25.10 ; Hypercholesterolemia E78.0 and COPD (chronic obstructive pulmonary disease) J44.9 [place] [id number] [place] [address] 64577- 5955 Oct, [place] [address] [place] [address] 15002- 3702 Aug, Type 2 diabetes mellitus with other diabetic ophthalmic complication E11.39 ; GERD (gastroesophageal reflux disease) K21.9 ; Hypothyroid E03.9 ; Environmental allergies Z91.09 ; CAD (coronary artery disease) I25.10 ; Hypercholesterolemia E78.0 ; COPD (chronic obstructive pulmonary disease) J44.9 and Sleep apnea G47.30 [place] [id number] [place] [address] 80303- 5616 Jul, COPD (chronic obstructive pulmonary disease) J44.9 [place] [id number] [place] [address] 05971- 1608 June, [place] [id number] [place] [address] 95556- 0861 May, [place] [address] [place] [address] 61936- 4535 Apr, COPD (chronic obstructive pulmonary disease) J44.9 ; Sleep apnea G47.30 ; HTN (hypertension) I10 ; Hypothyroid E03.9 ; Environmental allergies Z91.09 ; CAD (coronary artery disease) I25.10 ; Hypercholesterolemia E78.0 and Type 2 diabetes mellitus with other diabetic ophthalmic complication E11.39 [place] [address] [place] [address] 20296- 6063 Apr, [place] [id number] [place] [address] 40058- 4198 Mar, [place] [address] [place] [address] 49234- 9096 Mar, [place] [address] [place] [address] 84137- 0168 Feb, [place] [address] [place] [address] 74684- 8929 Feb, Type 2 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.39 ; Hypothyroid E03.9 ; HTN (hypertension) I10 ; COPD ( chronic obstructive pulmonary disease) J44.9 ; Sleep apnea G47.30 ; Hypercholesterolemia E78.0 ; Environmental allergies Z91.09 ; Diarrhea R19.7 and GERD (gastroesophageal reflux disease) K21.9 [facility] [address] [address] Feb, [facility] [id number] [place] [address] 15900- 6867 Jan, [facility] [id number] [place] [address] 13597- 5153 Jan, [place] [address] [place] [address] 41725- 3676 Jan, [place] [address] [place] [address] 83549- 0485 Jan, Anemia D64.9 [place] [address] [place] [address] 96905- 4534 Jan, [place] [address] [place] [address] 18386- 3361 10 Jan, 2015 Type 2 diabetes mellitus with other diabetic ophthalmic complication E11.39 ; Hypothyroid E03.9 ; HTN (hypertension) I10 ; COPD ( chronic obstructive pulmonary disease) J44.9 ; Sleep apnea G47.30 ; Hypercholesterolemia E78.0 ; CAD (coronary artery disease) I25.10 and Environmental allergies Z91.09 IMMUNIZATIONS No Known Immunizations SOCIAL HISTORY Never Assessed REASON FOR VISIT Rx clarification PLAN OF CARE VITAL SIGNS MEDICATIONS Medication Instructions Dosage Frequency Start Date End Date Duration Status Metoprolol Succinate 200 mg Orally Once a day 1 tablet 24h 30 days Active RESULTS No Results PROCEDURES [...] esophageal wrap Hospitalization History lung infection [facility] 09/2014 Hospitalization History double pneumonia 04/2015 Hospitalization History Double pneumonia 07/2015 Hospitalization History [facility] allergic reaction 03/2016 Hospitalization History [facility] spent 2 weeks 03/2016 Hospitalization History [facility]- Pneumonia, COPD with Acute Exacerbation 05/19/2017
--- OUTSIDE RECORDS SUMMARY | 2017-12-13 06:47 | XMS REPORT ---
Author Author ROCKY MORRIS Organization [facility] Address [address] [place] [address] Care Team Providers Care Irish Moss Operator Name Role Phone ROCKY MORRIS Unavailable PROBLEMS Type Condition ICD9-CM Code CCQ51-CQ Code Onset Dates Condition Status SNOMED Code Problem Coronary atherosclerosis due to lipid rich plaque I25.83 Active 496245370881504 Problem Panlobular emphysema J43.1 Active 6227247 Problem Atherosclerotic heart disease of [place] coronary artery without angina pectoris I25.10 Active 529369323000825 Problem Simple chronic bronchitis J41.0 Active 54875411 Problem Pure hypercholesterolemia E78.00 Active 130181514 Problem COPD with acute exacerbation J44.1 Active 256838306 Problem 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 Active 832227692 Problem Type 2 diabetes mellitus with hyperglycemia E11.65 Active 628433531 Problem 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 Active 351549895928 Problem Type 2 diabetes mellitus with other circulatory complications E11.59 Active 72506439 Problem HTN (hypertension) I10 Active 91109177 Problem CAD (coronary artery disease) I25.10 Active 80181639 Problem Hypothyroid E03.9 Active 22286917 Problem COPD (chronic obstructive pulmonary disease) J44.9 Active 71070183 Problem Environmental allergies Z91.09 Active 104401617 Problem Neuropathy G62.9 Active 716115802 Problem 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 [id number] [address] Nov, [facility] [id number] [address] Oct, [place] [address], [place] [address] Oct, [facility] [id number] [place] [address]5867- [address] 13 Oct, 2017 [place] [id number] [place] [address] 43509- 9184 Oct, [place] [id number] [place] [address]32- 4[address] 05 Oct, 2017 COPD (chronic obstructive pulmonary disease) J44.9 ; Hypothyroid E03.9 and HTN (hypertension) I10 [place] [id number] [place] [address] 36520- 3975 Aug, COPD (chronic obstructive pulmonary disease) J44.9 ; Hypothyroid E03.9 ; HTN (hypertension) I10 ; Type 2 diabetes mellitus with other circulatory complications E11.59 and BMI 45.0-49.9, adult Z68.42 [place] [id number] [place] [address] 18097- 7247 Aug, [place] [id number] [place] [address] 35670- 3307 Jul, [place] [id number] [place] [address] 98948- 3389 Jul, Alcoholism F10.20 ; Parkinson's disease (tremor, stiffness, slow motion, unstable posture) G20 and COPD (chronic obstructive pulmonary disease) J44.9 [place] [address], [place] [address] June, BMI 45.0-49.9, adult Z68.42 and Simple chronic bronchitis J41.0 [place] [address] [place] [address]77- 0669 June, [place] [id number] [place] [address] 92882- 4025 May, HTN (hypertension) I10 and Type 2 diabetes mellitus with other circulatory complications E11.59 [facility] [id number] [place] [address] 37688- 2031 May, [facility] [address] [address] May, COPD exacerbation J44.1 [facility] [address] [address] Apr, Pure hypercholesterolemia E78.00 [facility] [address] [address] Apr, [facility] [address] [address] 17 Mar, 2017 Cough R05 ; COPD with acute exacerbation J44.1 and BMI 45.0 -49.9, adult Z68.42 [place] [address] [address] Mar, [facility] [address] [address] Mar, [place] [address] [address] Feb, [facility] [id number] [place] [address] 07724- 2244 Feb, BMI 45.0-49.9, adult Z68.42 and Acute non-recurrent maxillary sinusitis J01.00 [facility] [id number] [place] [address] 86952- 6524 Feb, [place] [address] [address] Feb, [place] [address] [address] Feb, GERD (gastroesophageal reflux disease) K21.9 [place] [address] [address] Jan, Panlobular emphysema J43.1 ; Type 2 diabetes mellitus with hyperglycemia E11.65 and 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 [facility] [id number] [place] [address] 79116- 8264 Jan, [facility] [address] [place] [address]28 [address] Dec, Chronic obstructive pulmonary disease with acute exacerbation J44.1 ; Cough R05 ; 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 ; Type 2 diabetes mellitus with other circulatory complications E11.59 ; 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 and BMI 45.0-49.9, adult Z68.42 [facility] [id number] [place] [address] 87506- 9686 Oct, [facility] [id number] [place] [address] 41000- 2195 Sep, [facility] [id number] [place] [address] 33416- 4283 Aug, [facility] [id number] [place] [address] 43339- 8155 May, [facility] [id number] [place] [address] 17564- 3927 May, [facility] [id number] [place] [address] 31769- 1147 Apr, [facility] [id number] [place] [address] 27859- 8415 Apr, [facility] [id number] [place] [address] 55703- 3747 Apr, [facility] [id number] [place] [address] 29339- 0930 Apr, Type 2 diabetes mellitus with other diabetic ophthalmic complication E11.39 ; GERD (gastroesophageal reflux disease) K21.9 ; HTN ( hypertension) I10 ; Environmental allergies Z91.09 ; COPD (chronic obstructive pulmonary disease) J44.9 ; Sleep apnea G47.30 ; Hypothyroid E03.9 ; Neuropathy G62.9 ; Pure hypercholesterolemia E78.00 ; Atherosclerotic heart disease of [place] coronary artery without angina pectoris I25.10 ; Coronary atherosclerosis due to lipid rich plaque I25.83 and Edema, unspecified type R60.9 [facility] [place] [id number] Mar, COPD (chronic obstructive pulmonary disease) J44.9 ; Alcoholism F10.20 and 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 [facility] [place] [id number] Mar, Open wound T14.8 [place] [id number] [place] [address] 81419- 1777 Mar, Environmental allergies Z91.09 ; Open wound, lower leg, right, initial encounter S81.801A ; GERD (gastroesophageal reflux disease) K21.9 ; Hypothyroid E03.9 ; Hypercholesterolemia E78.0 ; Sleep apnea G47.30 ; Neuropathy G62.9 ; Edema, unspecified type R60.9 ; 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 ; Coronary artery disease involving [place] coronary artery of [place] heart without angina pectoris I25.10 ; Type 2 diabetes mellitus with other diabetic ophthalmic complication E11.39 and COPD (chronic obstructive pulmonary disease) J44.9 [place] [address] [place] [address] 07985- 6547 Mar, [place] [id number] [place] [address] 39915- 8526 Mar, [place] [id number] [place] [address] 69548- 8892 Mar, [facility] [address] [place] [id number] Mar, Alcoholism F10.20 ; Type 2 diabetes mellitus with other diabetic ophthalmic complication E11.39 ; COPD (chronic obstructive pulmonary disease) J44.9 and Sleep apnea G47.30 [place] [id number] [place] [address] 24642- 4050 Mar, [place] [id number] [place] [address] 06585- 2350 Mar, [address] [address] Feb, Type 2 diabetes mellitus with other diabetic ophthalmic complication E11.39 ; GERD (gastroesophageal reflux disease) K21.9 ; Hypothyroid E03.9 ; Sleep apnea G47.30 ; Parkinson's disease (tremor, stiffness , slow motion, unstable posture) G20 ; CAD (coronary artery disease) I25.10 ; Edema, unspecified type R60.9 ; COPD (chronic obstructive pulmonary disease) J44.9 and Neuropathy G62.[address] [address] Jan, HTN (hypertension) I10 [address] [address] Jan, COPD (chronic obstructive pulmonary disease) J44.9 ; Hypothyroid E03.9 ; Environmental allergies Z91.09 ; Type 2 diabetes mellitus with other diabetic ophthalmic complication E11.39 ; Hypercholesterolemia E78.0 ; Sleep apnea G47.30 ; CAD (coronary artery disease) I25.10 ; HTN (hypertension ) I10 ; GERD (gastroesophageal reflux disease) K21.9 ; Anemia D64.9 and Edema, unspecified type R60.9 [place] [id number] [place] [address] 77500- [address]326 Dec, [address] [address] Dec, Type 2 diabetes mellitus with other diabetic ophthalmic complication E11.39 ; GERD (gastroesophageal reflux disease) K21.9 ; HTN ( hypertension) I10 ; Hypothyroid E03.9 ; Environmental allergies Z91.09 ; Sleep apnea G47.30 ; CAD (coronary artery disease) I25.10 ; Hypercholesterolemia E78.0 and COPD (chronic obstructive pulmonary disease) J44.9 [place] [id number] [place] [address] 88255- 9645 Oct, [place] [address] [place] [address] 51555- 4444 Aug, Type 2 diabetes mellitus with other diabetic ophthalmic complication E11.39 ; GERD (gastroesophageal reflux disease) K21.9 ; Hypothyroid E03.9 ; Environmental allergies Z91.09 ; CAD (coronary artery disease) I25.10 ; Hypercholesterolemia E78.0 ; COPD (chronic obstructive pulmonary disease) J44.9 and Sleep apnea G47.30 [place] [id number] [place] [address] 16460- 7292 Jul, COPD (chronic obstructive pulmonary disease) J44.9 [place] [id number] [place] [address] 91704- 9033 June, [place] [id number] [place] [address] 67593- 7672 May, [place] [id number] [place] [address] 67177- 2801 Apr, COPD (chronic obstructive pulmonary disease) J44.9 ; Sleep apnea G47.30 ; HTN (hypertension) I10 ; Hypothyroid E03.9 ; Environmental allergies Z91.09 ; CAD (coronary artery disease) I25.10 ; Hypercholesterolemia E78.0 and Type 2 diabetes mellitus with other diabetic ophthalmic complication E11.39 [place] [address] [place] [address] 52654- 3255 Apr, [place] [id number] [place] [address] 81671- 2411 Mar, [place] [id number] [place] [address] 91814- 1107 Mar, [place] [id number] [place] [address] 75563- 1812 Feb, [place] [id number] [place] [address] 94121- 9264 Feb, Type 2 diabetes mellitus with other diabetic ophthalmic complication E11.39 ; Hypothyroid E03.9 ; HTN (hypertension) I10 ; COPD ( chronic obstructive pulmonary disease) J44.9 ; Sleep apnea G47.30 ; Hypercholesterolemia E78.0 ; Environmental allergies Z91.09 ; Diarrhea R19.7 and GERD (gastroesophageal reflux disease) K21.9 [place] [address], [place] [address] Feb, [facility] [id number] [place] [address] 78971- 5458 Jan, [place] [id number] [place] [address] 62534- 0568 Jan, [place] [id number] [place] [address] 00234- 6604 Jan, [place] [id number] [place] [address] 91590- 0577 Jan, Anemia D64.9 [place] [id number] [place] [address] 13504- 9313 Jan, [place] [id number] [place] [address] 27518- 0599 10 Jan, 2015 Type 2 diabetes mellitus with other diabetic ophthalmic complication E11.39 ; Hypothyroid E03.9 ; HTN (hypertension) I10 ; COPD ( chronic obstructive pulmonary disease) J44.9 ; Sleep apnea G47.30 ; Hypercholesterolemia E78.0 ; CAD (coronary artery disease) I25.10 and Environmental allergies Z91.09 IMMUNIZATIONS No Known Immunizations SOCIAL HISTORY Never Assessed REASON FOR VISIT Lab (walk-in) PLAN OF CARE VITAL SIGNS MEDICATIONS Unknown Medications RESULTS No Results PROCEDURES Procedure Date Ordered Result Body Site LAB NOT BILLED BY [facility] Oct 18, 2017 VENIPUNCT, ROUTINE* Oct 18, 2017 INSTRUCTIONS MEDICATIONS ADMINISTERED No Known Medications [...] esophageal wrap Hospitalization History lung infection at [facility] 09/2014 Hospitalization History double pneumonia 04/2015 Hospitalization History Double pneumonia 07/2015 Hospitalization History [facility] allergic reaction 03/2016 Hospitalization History Medical [facility] spent 2 weeks 03/2016 Hospitalization History [facility] [place], operated by [facility]- Pneumonia, COPD with Acute Exacerbation 05/19/2017
[2017-12-13] MEDS ORDERED: HEParin (CATH LAB) 2,000 ML IV ONE (06:48)
[2017-12-13] MEDS ORDERED: NS IV 1000 ML 1,000 ML ONE (06:48)
[2017-12-13] MEDS ORDERED: LIDOCAINE 1% INJ 20 ML 20 ML VIAL ONE (06:48)
[2017-12-13] MEDS ORDERED: NS IV 1000 ML 1,000 ML IV SCH ×2 (07:00→08:40)
[2017-12-13 07:18] LABS: BILIRUBIN,URINE NEGATIVE (NEGATIVE); CLARITY,URINE CLEAR; COLOR,URINE YELLOW; GLUCOSE, URINE (UA) 4+ (NEGATIVE); KETONES,URINE NEGATIVE (NEGATIVE); LEUKOCYTE ESTERASE ,URINE NEGATIVE (NEGATIVE); NITRITE,URINE NEGATIVE (NEGATIVE); PH,URINE 6.5 (5-9); PROTEIN,URINE 3+ (NEGATIVE); UROBILINOGEN,URINE 1 MG/DL (NORMAL)
[2017-12-13 07:19] LABS: HEMOGLOBIN 11.6 G/DL (13.3-17.7); MEAN PLATELET VOLUME 10.9 FL (7.4-10.4); RED BLOOD COUNT 4.45 10^6/uL (4.35-5.85); RED CELL DISTRIBUTION WIDTH 15.7 % (10.0-14.5); WHITE BLOOD COUNT 4.4 10^3/uL (4.3-11.0)
[2017-12-13] MEDS ORDERED: HEParin 1000 UNIT/ML (10ML VIAL) FOR BOLUS ONE (07:27)
[2017-12-13] MEDS ORDERED: MIDAZOLAM 5 MG/5 ML (VERSED) VIAL ONE (07:27)
[2017-12-13] MEDS ORDERED: fentaNYL INJECTION 100 MCG/2 ML AMP ONE (07:27)
[2017-12-13 07:31] LABS: BACTERIA,URINE NEGATIVE /HPF; RBC,URINE RARE /HPF; SQUAMOUS EPITHELIAL CELL,UR RARE /HPF
[2017-12-13 07:35] LABS: PROTHROMBIN TIME PATIENT 13.4 SEC (12.2-14.7)
[2017-12-13] MEDS ORDERED: FEXO-14 PO (07:38)
[2017-12-13 07:44] LABS: ALBUMIN 4.3 GM/DL (3.2-4.5); BILIRUBIN,TOTAL 0.8 MG/DL (0.1-1.0); CALCIUM 9.5 MG/DL (8.5-10.1); CREATININE SERUM 1.33 MG/DL (0.60-1.30); POTASSIUM 4.2 MMOL/L (3.6-5.0); TOTAL PROTEIN 7.3 GM/DL (6.4-8.2)
[2017-12-13] MEDS ORDERED: FLU QUADRIvalent (5+ YOA) 2018-2019 (AFLURIA) 0.5 ML IM ONE (07:45)
--- NOTE | 2017-12-13 08:00 | Diagnostic Imaging Report ---
Indication: Coronary artery disease. Frontal chest obtained at 725 hours a.m. and is compared to 12/06/2017. There is cardiomegaly and post sternotomy change, which appears similar to the prior study. There is central vascular congestion and diffuse interstitial edema. There is no alveolar consolidation or pneumothorax or pleural fluid. Impression: Cardiomegaly with central vascular congestion and interstitial edema, with similar appearance to 12/06/2017. No significant pleural fluid. Dictated by: Dictated on workstation # [id number]
--- NOTE | 2017-12-13 08:06 | Cardiac Procedure Note-CS/ASA ---
Pre-Procedure Note Pre-Op Procedure Note H&P Reviewed The H&P was reviewed, patient examined and no changes noted. Date H&P Reviewed: Dec 13, 2017 Time H&P Reviewed: 08:05 Conscious Sedation Pre-Proced Time 08:06 ASA Score 3 For ASA 3 and 4: Consider anesthesia and medical clearance. Also, for patients with a history of failed moderate sedation consider anesthesia. Airway Lungs Heart ASA score ASA 1: a normal healthy patient ASA 2: a patient with a mild systemic disease (mid diabetes, controlled hypertension, obesity x ASA 3: a patient with a severe systemic disease that limits activity (angina , COPD, prior Myocardial infarction) ASA 4: a patient with an incapacitating disease that is a constant threat to life (CHF, renal failure) ASA 5: a moribund patient not expected to survive 24 hrs. (ruptured aneurysm) ASA 6: a declared brain patient whose organs are being harvested. For emergent operations, add the letter E after the classification Mallampati Classification Grade 3 Sedation Plan Analgesia, Amnesia, Plan communicated to team members, Discussed options with patient/fam, Discussed risks with patient/fam The patient is an appropriate candidate to undergo the planned procedure, sedation, and anesthesia. The patient immediately re-assessed prior to indication. NHUNG GALAVIZ MD Dec 13, 2017 08:06
--- NOTE | 2017-12-13 08:44 | Discharge Inst-Post CATH ---
Discharge Inst-CATH Post Cardiac Cath D/C Inst Follow Up/Plan Hold Metformin for [address] Ray's office in 4 weeks CARDIAC CATH DISCHARGE INSTRUCTIONS *Hold Metformin for 48 hours post heart cath. ACTIVITY * Go Home directly and rest. * Limit activity of the leg (or wrist if it was used) for 7 days including aerobics, swimming, jogging, bicycling, etc. * Restrict stair-climbing for 7 days if possible, if not, climb up with your non -cath leg, then bring together on the same step. * Avoid lifting, pushing, pulling or excessive movement of the affected extremity for 7 days. * Customary sexual activity may be resumed after 2 days-use caution not to use a position that strains or causes pain to the affected extremity. * No driving for 24 hours. * NO SMOKING. * Avoid straining for bowel movements for 7 days. * Gentle walking on level ground is allowed. * Returning to work will depend on the type of procedure and the results. Your doctor will discuss this with you. CALL YOUR DOCTOR FOR ANY OF THE FOLLOWING: *If bleeding from the puncture site occurs- Apply gentle pressure to site with clean cloth and call your doctor or EMS. * If a knot or lump forms under the skin, increases in size, or causes pain. * If bruising appears to be worsening or moving further down your leg instead of disappearing. * Temperature above 101 F. CARE OF YOUR GROIN INCISION; * Bruising or purple discoloration of the skin near the puncture site is common. * You may shower only, no bathtub bathing for 5 days. Be careful to avoid slipping as your leg may feel stiff. * If a closure device was used on your femoral artery, please see the attached guide regarding care of the device and your leg. * Leave the dressing on, until removed by office staff. CARE OF YOUR WRIST INCISION; * Bruising or purple discoloration of the skin near the puncture site is common. * You may shower. * DO NOT submerge wrist. * Leave dressing on, until removed by office staff.. NHUNG RAY MD Dec 13, 2017 08:44
[2017-12-13] MEDS ORDERED: PATIENT MAY USE OWN MEDS, ALL PO SCH (08:45)
--- NOTE | 2017-12-13 08:48 | Cardiac Cath Report ---
Cardiac Cath Report Physician (s)/Bucket Wash Operator (s) Physician NHUNG GALAVIZ MD Pre-Procedure Diagnosis Pre-Procedure Diagnosis: Coronary artery disease Post-Procedure Note Procedure Start Date: Dec 13, 2017 Name of Procedure: Left heart catheterization Vein graft angiogram BARROSO angiogram Findings/Procedure Note PROCEDURE NOTE: After explaining the procedure to the patient, all pros and cons were explained , all questions were answered. The patient signed the consent and then he was placed on the cardiac catheterization laboratory. Groin was prepped SL fashion local anesthesia was used. Sheath placed in the right femoral artery. Gibson right and left catheter were used to access the coronary system.Vein Graft evaluated. BARROSO evaluated. JR catheter was advanced to the left ventricular cavity Left ventriculogram was not done, pressure was measured At the end of the procedure the sheath was removed. Closure device FINDINGS: Hemodynamics LV 109/10 end diastolic pressure of 10 Aorta 129/16 mean of 87 ANATOMY: Left Main has moderate distal disease Left Anterior Descending has moderate disease proximally, competitive flow through the BARROSO Left Circumflex has moderate disease Right Coronory Artery very small artery BARROSO to LAD is patent with good flow Vein Graft is a jump graft, the branch to the obtuse marginal branch is patent with excellent flow, the branch to the diagonal artery is occluded CONCLUSION: 1. Occluded branch of the jump vein graft to the diagonal artery, patent vein graft to the obtuse marginal branch 2. Patent BARROSO to the LAD 3. Distal left main coronary artery disease and diffuse havasupai coronary artery disease 4. Normal left ventricular end-diastolic pressure DISCUSSION AND RECOMMENDATION: Continue with medical therapy, I will discontinue Plavix for now. Anesthesia Type: Conscious Sedation Estimated blood loss (mL): 15 ml Contrast Amount: 35 ml Total Radiation Dose: 1057 mGy Post-Procedure Diagnosis Post-operative diagnosis: Coronary artery disease Hypertension Hyperlipidemia Diabetes mellitus NHUNG GALAVIZ MD Dec 13, 2017 08:48
== END 2017-12-13 13:00 | disposition home or self-care (01) ==
LOC: CATH 06:43
PROVIDERS: ATTEND Internal Medicine Cardiovascular Disease
DX: I25.10 Atherosclerotic heart disease of native coronary artery without angina pectoris (principal); I11.0 Hypertensive heart disease with heart failure; E78.5 Hyperlipidemia, unspecified; E11.51 Type 2 diabetes mellitus with diabetic peripheral angiopathy without gangrene; Z11.2 Encounter for screening for other bacterial diseases; R07.9 Chest pain, unspecified; R06.09 Other forms of dyspnea; E66.01 Morbid (severe) obesity due to excess calories; I50.9 Heart failure, unspecified; J44.9 Chronic obstructive pulmonary disease, unspecified; R91.1 Solitary pulmonary nodule; G47.33 Obstructive sleep apnea (adult) (pediatric); Z68.41 Body mass index [BMI] 40.0-44.9, adult; Z99.81 Dependence on supplemental oxygen; Z79.84 Long term (current) use of oral hypoglycemic drugs; Z79.899 Other long term (current) drug therapy
CPT/HCPCS: 36415; 71045; 80053; 80061; 81000; 85027; 85610; 85730; 87081; 93459

== ENCOUNTER → 2018-03-15 | Outpatient (CLI) | payer MEDICARE, OTHER ==
[~2018-03-15] MED LIST changes: -AMLO10TA6 PO; +AMLO10TA7 PO; +FEXO-14 PO; +RECEIVED CONTRAST (Hold Metformin) IV SCH
[2018-03-15] MEDS: IOHEXOL 350 MG/ML 100 ML (OMNIPAQUE 350) VIAL IV ONE (07:48)
[2018-03-15] MEDS: NS 100 ML (IVPB) BAG IV ONE (07:49)
--- NOTE | 2018-03-15 22:08 | Diagnostic Imaging Report ---
PROCEDURE: CT chest with contrast only. TECHNIQUE: Multiple contiguous axial images were obtained through the chest after administration of intravenous contrast. DATE: March 15, 2018. COMPARISON: CT chest, November 27, 2017. October 17, 2017. INDICATION: 63-year-old male, shortness of breath. History of adenocarcinoma of the right upper lobe. Followup after radiation treatment. FINDINGS: There is a right upper lobe pulmonary nodule currently measuring 2.3 x 1.8 cm in size which is unchanged in size since November 27, 2017. This measured 2.3 x 1.9 cm in size at that time. There are adjacent linear opacities compatible with adjacent scarring and/or atelectasis. There are areas of smooth septal thickening in the right and left lower lobes with asymmetric appearance most likely relating to interstitial edema with unchanged appearance since comparison exam. There is persistent and unchanged nonspecific airspace consolidation in the dependent aspect of the right lower lobe which potentially could reflect atelectasis. There is no new or enlarging pulmonary nodule. There is no new focal airspace consolidation. There is no pneumothorax. There is no pleural effusion. The central airways are patent. There is nondiagnostic assessment for pulmonary embolus given the timing of the contrast bolus. The main pulmonary artery is normal in caliber. There are coronary artery calcifications and additional areas of atherosclerotic disease. There is no pericardial effusion. There is a right hilar lymph node on axial image 36 which measures 9 mm in short axis. This is unchanged since comparison exam. There are additional subcentimeter short axis right hilar lymph nodes which are also grossly unchanged. There are subcentimeter short axis subcarinal and left hilar lymph nodes which are unchanged. There is no identified enlarging or new mediastinal or hilar lymph node. There is no abnormally enlarged axillary lymph node which meets CT size criteria for adenopathy. The thyroid is surgically absent or very hypoplastic. The thyroid also potentially could be ectopically positioned. There is fat extending through the esophageal hiatus. The spleen is questionably prominent in size although it cannot be well assessed as the spleen is incompletely imaged. There are multilevel degenerative changes of the spine. There are median sternotomy wires. There is a lucent lesion in the T8 vertebral body measuring 6 mm in size on sagittal image 36. This appears new since October 17, 2017. IMPRESSION: CT chest: 1. Stable size of the right upper lobe pulmonary nodule since November 27, 2017. 2. No new or enlarging pulmonary nodule. 3. Redemonstrated hilar and mediastinal lymph nodes without interval increase in size of a thoracic lymph node or new abnormally enlarged lymph node. 4. There is a 6 mm low-attenuation lesion in the T8 vertebral body which is new since October 17, 2017. This raises concern for possible bone metastasis. Dictated by: Dictated on workstation # [id number]
== END ==
LOC: RAD 07:20
PROVIDERS: ATTEND Internal Medicine Hematology & Oncology
DX: C34.11 Malignant neoplasm of upper lobe, right bronchus or lung (principal); M89.9 Disorder of bone, unspecified
CPT/HCPCS: 71260

== ENCOUNTER → 2018-03-20 | Outpatient (RCR) | payer MEDICARE ==
[2018-03-05 08:59] LABS: BASOPHILS % (AUTO) 1 % (0-10); EOSINOPHILS # (AUTO) 0.1 10^3/uL (0.0-0.3); EOSINOPHILS % (AUTO) 5 % (0-10); HEMATOCRIT 37 % (40-54); HEMOGLOBIN 12.2 G/DL (13.3-17.7); LYMPHOCYTES # (AUTO) 0.4 X 10^3 (1.0-4.0); LYMPHOCYTES % (AUTO) 15 % (12-44); MEAN CORPUSCULAR HEMOGLOBIN 27 PG (25-34); MEAN CORPUSCULAR HGB CONC 33 G/DL (32-36); MEAN CORPUSCULAR VOLUME 81 FL (80-99); MEAN PLATELET VOLUME 10.6 FL (7.4-10.4); MONOCYTES # (AUTO) 0.4 X 10^3 (0.0-1.0); MONOCYTES % (AUTO) 12 % (0-12); NEUTROPHILS # (AUTO) 2.1 X 10^3 (1.8-7.8); NEUTROPHILS % (AUTO) 68 % (42-75); PLATELET COUNT 89 10^3/uL (130-400); RED CELL DISTRIBUTION WIDTH 15.4 % (10.0-14.5)
[2018-03-05 09:24] LABS: ALBUMIN 4.1 GM/DL (3.2-4.5); BILIRUBIN,TOTAL 0.8 MG/DL (0.1-1.0); CALCIUM 9.3 MG/DL (8.5-10.1); CREATININE SERUM 1.23 MG/DL (0.60-1.30); POTASSIUM 3.7 MMOL/L (3.6-5.0)
[~2018-03-20] MED LIST changes: -RECEIVED CONTRAST (Hold Metformin) IV SCH
== END | disposition home or self-care (01) ==
LOC: ONC 12-20 14:09
PROVIDERS: ATTEND Internal Medicine Hematology & Oncology
DX: C34.11 Malignant neoplasm of upper lobe, right bronchus or lung (principal); Z87.891 Personal history of nicotine dependence; Z79.899 Other long term (current) drug therapy
CPT/HCPCS: 36415; 80053; 85025; 99204; 99213; 99214

== ENCOUNTER 2018-04-09 12:18 | Emergency (ER) | payer MEDICARE, OTHER ==
[~2018-04-09] VITALS: Ht 188 cm; Wt 149.7 kg
[2018-04-09] MEDS ORDERED: RT-ALBUTEROL/IPRATROPIUM 3 ML (DUONEB) VIAL ONE (12:42)
[2018-04-09 13:19] LABS: BASOPHILS % (AUTO) 0 % (0-10); EOSINOPHILS # (AUTO) 0.1 10^3/uL (0.0-0.3); EOSINOPHILS % (AUTO) 1 % (0-10); HEMATOCRIT 35 % (40-54); HEMOGLOBIN 11.7 G/DL (13.3-17.7); LYMPHOCYTES # (AUTO) 0.6 X 10^3 (1.0-4.0); LYMPHOCYTES % (AUTO) 11 % (12-44); MEAN CORPUSCULAR HEMOGLOBIN 27 PG (25-34); MEAN CORPUSCULAR HGB CONC 34 G/DL (32-36); MEAN CORPUSCULAR VOLUME 81 FL (80-99); MEAN PLATELET VOLUME 10.3 FL (7.4-10.4); MONOCYTES # (AUTO) 0.4 X 10^3 (0.0-1.0); MONOCYTES % (AUTO) 7 % (0-12); NEUTROPHILS # (AUTO) 4.5 X 10^3 (1.8-7.8); NEUTROPHILS % (AUTO) 81 % (42-75); PLATELET COUNT 111 10^3/uL (130-400); WHITE BLOOD COUNT 5.5 10^3/uL (4.3-11.0)
[2018-04-09 13:43] LABS: ALBUMIN 3.8 GM/DL (3.2-4.5); BILIRUBIN,TOTAL 1.1 MG/DL (0.1-1.0); CREATININE SERUM 1.61 MG/DL (0.60-1.30); POTASSIUM 3.2 MMOL/L (3.6-5.0); TOTAL PROTEIN 6.9 GM/DL (6.4-8.2)
--- NOTE | 2018-04-09 13:43 | Diagnostic Imaging Report ---
INDICATION: Cough and flu symptoms. COMPARISON: 12/13/2017. FINDINGS: There is cardiomegaly. There are bibasilar infiltrates. There is some venous congestion. There is no pneumothorax. The mediastinum is unremarkable. There has been previous median sternotomy and coronary artery bypass graft. IMPRESSION: Patchy bibasilar infiltrates, right greater than left. Cardiomegaly and some central pulmonary venous congestion. Dictated by: Dictated on workstation # [id number]
[2018-04-09] MEDS ORDERED: NS IV 1000 ML 1,000 ML IV ONE (14:11)
[2018-04-09] MEDS ORDERED: cefTRIAXone FOR IV USE 1,000 MG in WATER (STERILE) FOR INJECTION 10 ML IV ONE (14:30)
--- NOTE | 2018-04-09 15:05 | ED Respiratory ---
General Chief Complaint: Cough/Cold/Flu Symptoms Stated Complaint: FLU SYMPTOMS Nursing Triage Note: PT WAS SENT TO ER BY DR SUH WITH COMPLAINT OF FLU LIKE SYMPTOMS. PT STATES SYPMTOMS STARTED MONDAY. Source: patient Exam Limitations: no limitations History of Present Illness Date Seen by Provider: Apr 09, 2018 Time Seen by Provider: 12:28 Initial Comments This 63-year-old gentleman with COPD was sent to the emergency room by Dr. Suh for 4 days of flulike symptoms. He complains of cough, wheezing, myalgia , fatigue. He is dependent on supplemental oxygen. He is afebrile at this time. Allergies and Home Medications Allergies Coded Allergies: ARB-Angiotensin Receptor Antagonist (Verified Allergy, Severe, ANAPHYLAXIS , 10/25/17) DUE TO REACTION TO ACEI UNABLE TO TAKE ARB PER CARDIOLOGY. tree nut (Verified Allergy, Unknown, 10/25/17) JAQUELIN Inhibitors (Verified Adverse Reaction, Unknown, 10/25/17) ananaphlaxis Uncoded Allergies: ENVIRONMENTAL (Allergy, Mild, 09/07/08) Home Medications Acetaminophen 325 Mg Tablet, 650 MG PO Q4H PRN for PAIN-MILD, (Reported) TAKES 2 (325MG) TABLETS Albuterol Sulfate 2.5 Mg/3 Ml Vial.neb, 2.5 MG NEB QID, (Reported) Amlodipine Besylate 10 Mg Tablet, 10 MG PO DAILY, (Reported) Aspirin 81 Mg Tablet.dr, 81 MG PO HS, (Reported) Atorvastatin Calcium 40 Mg Tablet, 40 MG PO HS, (Reported) Bumetanide 2 Mg Tablet, 2 MG PO DAILY, (Reported) Cefdinir 300 Mg Capsule, 300 MG PO BID Prescribed by: VALENTINE KELLY on 04/09/18 1516 Docusate Sodium 250 Mg Capsule, 250 MG PO BID PRN for CONSTIPATION-1ST LINE, ( Reported) Fexofenadine HCl 60 Mg Tablet, 60 MG PO DAILY, (Reported) Fluticasone/Salmeterol 1 Each Blst.w.dev, 1 PUFF INH BID, (Reported) LAST FILLED #1 INHALER 02-17-17 Guaifenesin 600 Mg Tab.er.12h, 600 MG PO BID, (Reported) Hydrochlorothiazide 25 Mg Tablet, 25 MG PO DAILY, (Reported) Insulin Aspart 300 Units/3 Ml Solution, 50 UNITS SQ TIDAC, (Reported) Insulin Detemir 100 Unit/1 Ml Insuln.pen, 50 UNITS SC BID, (Reported) Levothyroxine Sodium 150 Mcg Tablet, 300 MCG PO DAILY, (Reported) TAKES 2 (150MCG) TABLETS ALONG WITH 1 (50MCG) TABLET FOR TOTAL DAILY DOSE OF 350MCG. Loratadine 10 Mg Tablet, 10 MG PO DAILY, (Reported) Metoprolol Succinate 100 Mg Tab.er.24h, 1.5 TAB PO DAILY can take 150mg (1.5 tabs) once daily rather than splitting the dose Prescribed by: JONI WAYNE on 05/21/17 0726 Multivitamin 1 Each Tablet, 1 TAB PO DAILY, (Reported) Nitroglycerin 0.4 Mg Tab.subl, 0.4 MG SL UD PRN for CHEST PAIN, (Reported) [place]-3/Dha/Epa/Fish Oil 1 Each Capsule, 1,000 MG PO TID, (Reported) Omeprazole 40 Mg Capsule.dr, 40 MG PO DAILY, (Reported) Potassium Gluconate 99 Mg Tablet, 99 MG PO DAILY, (Reported) Tiotropium Celina 1 Inh Aerp, 1 CAP IH DAILY, (Reported) Patient Home Medication List Home Medication List Reviewed: Yes Review of Systems Review of Systems Constitutional: see HPI EENTM: no symptoms reported Respiratory: see HPI Cardiovascular: no symptoms reported Gastrointestinal: no symptoms reported Genitourinary: no symptoms reported Musculoskeletal: see HPI Skin: no symptoms reported Psychiatric/Neurological: No Symptoms Reported Hematologic/Lymphatic: No Symptoms Reported Immunological/Allergic: no symptoms reported Past Jbruebu-Ororhe-Lewivj Hx Past Med/Social Hx: Reviewed Nursing Past Med/Soc Hx Patient Social History Alcohol Use: Denies Use Number of Drinks Today: FF Alcohol Beverage of Choice: Vodka Recreational Drug Use: No Smoking Status: Former Smoker Type Used: Cigarettes Former Smoker, Quit: Aug 17, 2006 Recent Foreign Travel: No Contact w/Someone Who Travel: No Recent Infectious Disease Expo: No Recent Hopitalizations: No Immunizations Up To Date Tetanus Booster (TDap): More than 5yrs PED Vaccines UTD: No Date of Pneumonia Vaccine: Jan 02, 2014 Date of Influenza Vaccine: Nov 28, 2016 Seasonal Allergies Seasonal Allergies: Yes Past Medical History Surgeries: Yes (HIATAL HERNIA REPAIR, ESOPHAGEAL WRAP) Abdominal, Appendectomy, CABG, Coronary Stent, Thyroidectomy Respiratory: Yes Pneumonia, Chronic Bronchitis, Sleep Apnea, COPD Currently Using CPAP: No Currently Using BIPAP: Yes Cardiac: Yes (STENTS, TRIPLE BYPASS) Chronic Edema/Swelling, Coronary Artery Disease, Heart Attack, High Cholesterol , Hypertension Neurological: Yes Neuropathy, Stroke Reproductive Disorders: No Sexually Transmitted Disease: No HIV/AIDS: No Genitourinary: No Gastrointestinal: Yes Gastroesophageal Reflux, Hiatal Hernia Musculoskeletal: Yes (EXOSTOSIS R HALLUX) Arthritis Endocrine: Yes (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 6.0oz. [id number]; 42.5 BMI Method:Stated General Appearance: WD/WN, no apparent distress HEENT: PERRL/EOMI, normal ENT inspection, pharynx normal Respiratory: no respiratory distress, no accessory muscle use, crackles ( Bibasilar left greater than right), wheezing Cardiovascular: regular rate, rhythm, no edema, no murmur Gastrointestinal: normal bowel sounds, non tender, soft Extremities: normal inspection, no pedal edema Neurologic/Psychiatric: monitoring analyst II-XII nml as tested, no motor/sensory deficits, alert, normal mood/affect, oriented x 3 Skin: normal color, warm/dry Progress/Results/Core Measures Suspected Sepsis Recent Fever Within 48 Hours: No Infection Criteria Present: None New/Unexplained Altered Menta: No Sepsis Screen: No Definite Risk SIRS Temperature:97.7 Pulse: 82 Respiratory Rate: 20 Laboratory Tests 04/09/18 13:00: White Blood Count 5.5 Blood Pressure 170 /101 Mean: 124 Laboratory Tests 04/09/18 13:00: Creatinine 1.61H, Platelet Count 111L, Total Bilirubin 1.1H Results/Orders Lab Results Laboratory Tests Test 04/09/18 13:00 Range/Units White Blood Count 5.5 4.3-11.0 10^3/uL Red Blood Count 4.26 L 4.35-5.85 10^6/uL Hemoglobin 11.7 L 13.3-17.7 G/DL Hematocrit 35 L 40-54 % Mean Corpuscular Volume 81 80-99 FL Mean Corpuscular Hemoglobin 27 25-34 PG Mean Corpuscular Hemoglobin Concent 34 32-36 G/DL Red Cell Distribution Width 16.0 H 10.0-14.5 % Platelet Count 111 L 130-400 10^3/uL Mean Platelet Volume 10.3 7.4-10.4 FL Neutrophils (%) (Auto) 81 H 42-75 % Lymphocytes (%) (Auto) 11 L 12-44 % Monocytes (%) (Auto) 7 0-12 % Eosinophils (%) (Auto) 1 0-10 % Basophils (%) (Auto) 0 0-10 % Neutrophils # (Auto) 4.5 1.8-7.8 X 10^3 Lymphocytes # (Auto) 0.6 L 1.0-4.0 X 10^3 Monocytes # (Auto) 0.4 0.0-1.0 X 10^3 Eosinophils # (Auto) 0.1 0.0-0.3 10^3/uL Basophils # (Auto) 0.0 0.0-0.1 10^3/uL Sodium Level 131 L 135-145 MMOL/L Potassium Level 3.2 L 3.6-5.0 MMOL/L Chloride Level 93 L 98-107 MMOL/L Carbon Dioxide Level 26 21-32 MMOL/L Anion Gap 12 5-14 MMOL/L Blood Urea Nitrogen 19 H 7-18 MG/DL Creatinine 1.61 H 0.60-1.30 MG/DL Estimat Glomerular Filtration Rate 44 BUN/Creatinine Ratio 12 Glucose Level 430 *H 70-105 MG/DL Calcium Level 9.0 8.5-10.1 MG/DL Corrected Calcium 9.2 8.5-10.1 MG/DL Total Bilirubin 1.1 H 0.1-1.0 MG/DL Aspartate Amino Transf (AST/SGOT) 16 5-34 U/L Alanine Aminotransferase (ALT/SGPT) 14 0-55 U/L Alkaline Phosphatase 114 40-136 U/L C-Reactive Protein High Sensitivity 24.80 H 0.00-0.50 MG/DL B-Type Natriuretic Peptide 55.9 <100.0 PG/ML Total Protein 6.9 6.4-8.2 GM/DL Albumin 3.8 3.2-4.5 GM/DL Micro Results Microbiology 04/09/18 Influenza Types A,B Antigen (ZAIN) - Final, Complete My Orders Orders - VALENTINE WALTERS MD BNP (04/09/18 12:36) Cbc With Automated Diff (04/09/18 12:36) Comprehensive Metabolic Panel (04/09/18 12:36) Hs C Reactive Protein (04/09/18 12:36) Saline Lock/Iv-Start (04/09/18 12:36) Chest Pa/Lat (2 View) (04/09/18 12:36) Influenza A And B Antigens (04/09/18 12:36) Albuterol/Ipra Inhalation Soln (Duoneb I (04/09/18 12:42) Ns Iv 1000 Ml (Sodium Chloride 0.9%) (04/09/18 14:11) Ceftriaxone For Iv Use (Rocephin For I (04/09/18 14:30) Potassium Chloride (Tablet) (Klor Con Ta (04/09/18 15:15) Albuterol/Ipra Inhalation Soln (Duoneb I (04/09/18 16:15) Svn Small Volume Nebulizer (04/09/18 16:15) Prednisone Tablet (Deltasone Tablet) (04/09/18 17:30) Medications Given in ED Current Medications Medications Dose Ordered Sig/Giselle Route Start Time Stop Time Status Last Admin Dose Admin Albuterol/ Ipratropium 3 ml ONCE ONCE INH 04/09/18 16:15 04/09/18 16:16 DC 04/09/18 16:18 3 ML Albuterol/ Ipratropium 3 ml STK-MED ONCE .ROUTE 04/09/18 12:42 04/09/18 12:49 DC 04/09/18 12:49 3 ML Ceftriaxone Sodium 1000 mg/ Sterile Water 10 ml @ 200 mls/hr ONCE ONCE IV 04/09/18 14:30 04/09/18 14:32 DC 04/09/18 15:31 200 MLS/HR Potassium Chloride 20 meq ONCE ONCE PO 04/09/18 15:15 04/09/18 15:16 DC 04/09/18 15:31 20 MEQ Prednisone 40 mg ONCE ONCE PO 04/09/18 17:30 04/09/18 17:30 DC 04/09/18 17:26 40 MG Sodium Chloride 1,000 ml @ 0 mls/hr Q0M ONCE IV 04/09/18 14:11 04/09/18 14:12 DC 04/09/18 14:30 1,000 MLS/HR Vital Signs/I&O 04/09/18 04/09/18 04/09/18 04/09/18 12:29 12:29 12:51 17:27 Temp 97.7 Pulse 82 78 Resp 20 20 B/P (MAP) 170/101 (124) 117/68 (84) Pulse Ox 94 93 93 O2 Delivery Nasal Cannula Nasal Cannula Nasal Cannula Nasal Cannula O2 Flow Rate 3.00 3.00 3.00 4.00 Capillary Refill : Less Than 3 Seconds Blood Pressure Mean: 124 Progress Note : Progress Note Patient was found to have basilar infiltrates suggestive of pneumonia. Vital signs were initially stable. He was found to have some acute kidney injury with elevated creatinine. 1 L of IV normal saline was infused. Patient developed hypoxia during his ER stay. Oxygen saturations were in the 86-92 range when he was on nasal cannula even up to 5 L/m. Patient had been ready for discharge when the hypoxia developed. An additional breathing treatment was given but it did not resolve the hypoxia. Case was discussed with Dr. Suh. We decided it would be safer for the patient to be admitted. No beds were available at [facility]. Patient was very resistant to transfer. Patient ultimately declined transfer. I discussed risks with him including the potential for rapid decompensation at home. Patient is aware that he could rapidly declined. His will watch him very closely. He has BiPAP available at home and pulse oximetry. His also stated she would watch his blood sugars closely and adjust insulin dosing accordingly. I did make it very clear to the patient that he should be admitted. Patient had received Rocephin 1 g by IV route. A single dose of prednisone 40 mg orally was given as well. Dr. Suh was updated and asked to see him in the office on . Patient was also mildly hypokalemic and was given an oral dose of potassium before leaving. At the time of dismissal oxygen saturation was 93 percent on 4 L nasal cannula. Diagnostic Imaging Diagonstic Imaging: Xray Plain Films/CT/US/NM/MRI: chest Comments Chest x-ray viewed by me and report reviewed. See report below: NAME: KOMAL ORTIZ [facility] REC#: [id number] PT STATUS: REG ER : 1955 PHYSICIAN: VALENTINE WALTERS MD ADMIT DATE: 04/09/18/ER Signed Date of Exam: 04/09/18 CHEST PA/LAT (2 VIEW) INDICATION: Cough and flu symptoms. COMPARISON: 12/13/2017. FINDINGS: There is cardiomegaly. There are bibasilar infiltrates. There is some venous congestion. There is no pneumothorax. The mediastinum is unremarkable. There has been previous median sternotomy and coronary artery bypass graft. IMPRESSION: Patchy bibasilar infiltrates, right greater than left. Cardiomegaly and some central pulmonary venous congestion. Dictated by: Dictated on workstation # [id number] Dict: 04/09/18 1333 Trans: 04/09/18 1346 Interpreted by: SEBASTIÁN VICTORIA MD Electronically signed by: SEBASTIÁN VICTORIA MD 04/09/18 1346 Departure Impression Primary Impression: Pneumonia Qualified Codes: J18.1 - Lobar pneumonia, unspecified organism Additional Impressions: Acute kidney injury Hypokalemia Hyperglycemia COPD (chronic obstructive pulmonary disease) Qualified Codes: J44.9 - Chronic obstructive pulmonary disease, unspecified Disposition: 01 HOME, SELF-CARE Condition: Stable Departure-Patient Inst. Decision time for Depature: 15:00 Referrals: [facility] [place] (PCP) Primary Care Physician ROCKY MORRIS (Family) Primary Care Physician Patient Instructions: Pneumonia, Adult (DC) Add. Discharge Instructions: Drink plenty of clear liquids. Complete your antibiotics as prescribed. Follow-up with Dr. Suh in about 2 weeks. Monitor your blood sugars closely. Contact your primary care provider if you' re consistently having blood sugars over 250. Follow-up with your primary care provider within the next 10 days. Discuss your kidney function and diabetes management. Return to the emergency room if you have worsening symptoms. All discharge instructions reviewed with patient and/or family. Voiced understanding. Scripts Cefdinir (Cefdinir) 300 Mg Capsule 300 MG PO BID, #20 CAP Prov: VALENTINE WALTERS MD 04/09/18 Copy Copies To 1: VIRGILIO SUH DO Copies To 2: JONI WAYNE JOSHUA T MD Apr 09, 2018 15:05
[2018-04-09] MEDS ORDERED: CEFD300C3 PO ×2 (15:15→15:16)
[2018-04-09] MEDS ORDERED: KCL 10 MEQ TAB (MICRO K) PO ONE (15:15)
[2018-04-09] MEDS ORDERED: RT-ALBUTEROL/IPRATROPIUM 3 ML (DUONEB) VIAL INH ONE (16:15)
[2018-04-09 17:27] VITALS: BP 117/68
[2018-04-09] MEDS ORDERED: predniSONE 20 MG TAB PO ONE (17:30)
== END 2018-04-09 17:27 | disposition home or self-care (01) ==
LOC: EDUNIT# 12:18 → ER 12:19
DX: J18.9 Pneumonia, unspecified organism (principal); N17.9 Acute kidney failure, unspecified; E87.6 Hypokalemia; E11.65 Type 2 diabetes mellitus with hyperglycemia; J44.9 Chronic obstructive pulmonary disease, unspecified; G47.30 Sleep apnea, unspecified; I25.10 Atherosclerotic heart disease of native coronary artery without angina pectoris; I25.2 Old myocardial infarction; E78.00 Pure hypercholesterolemia, unspecified; I10 Essential (primary) hypertension; K21.9 Gastro-esophageal reflux disease without esophagitis; E11.40 Type 2 diabetes mellitus with diabetic neuropathy, unspecified; F10.20 Alcohol dependence, uncomplicated; Z87.19 Personal history of other diseases of the digestive system; Z86.73 Personal history of transient ischemic attack (TIA), and cerebral infarction without residual deficits; Z82.49 Family history of ischemic heart disease and other diseases of the circulatory system; Z99.81 Dependence on supplemental oxygen; Z88.8 Allergy status to other drugs, medicaments and biological substances; Z79.51 Long term (current) use of inhaled steroids; Z79.82 Long term (current) use of aspirin; Z79.4 Long term (current) use of insulin; Z87.891 Personal history of nicotine dependence; Z98.890 Other specified postprocedural states; Z90.49 Acquired absence of other specified parts of digestive tract; Z95.1 Presence of aortocoronary bypass graft; Z95.5 Presence of coronary angioplasty implant and graft; Z90.89 Acquired absence of other organs; Z87.01 Personal history of pneumonia (recurrent)
CPT/HCPCS: 36415; 71046; 80053; 83880; 85025; 86141; 87804; 94640; 96361; 96365

== ENCOUNTER → 2018-05-17 | Outpatient (CLI) | payer MEDICARE, OTHER ==
--- NOTE | 2018-05-17 09:51 | Diagnostic Imaging Report ---
INDICATION: Cough. COMPARISON: CT dated 03/15/2018 FINDINGS: Frontal and lateral radiographic views of the chest were obtained. There has been interval progression of masslike opacity in the right upper lobe. On today's exam, the lesion in question measures 5.9 x 2.4 x 4.9 cm. This area has been previously biopsied. Otherwise, remainder of the lungs continue to show diffuse course prominence of the interstitium, which is likely on a chronic basis. There is no large effusion or pneumothorax. Cardiac silhouette and pulmonary vasculature stable. Sternotomy wires are noted. Bony structures show no gross acute abnormalities. IMPRESSION: 1. Interval increase in size of right upper lobe masslike opacity. Findings could be on the basis of progression of previously biopsied right upper lobe nodule. Superimposed infiltrate is also a consideration. Correlation with prior biopsy results is recommended. Dictated by: Dictated on workstation # [id number]
== END ==
LOC: RAD 08:22
PROVIDERS: ATTEND Nurse Practitioner Family
DX: J96.20 Acute and chronic respiratory failure, unspecified whether with hypoxia or hypercapnia (principal); J43.9 Emphysema, unspecified; J30.9 Allergic rhinitis, unspecified; G47.30 Sleep apnea, unspecified; J18.9 Pneumonia, unspecified organism; R91.1 Solitary pulmonary nodule; Z87.891 Personal history of nicotine dependence; Z98.890 Other specified postprocedural states
CPT/HCPCS: 71046

== ENCOUNTER → 2018-06-11 | Outpatient (CLI) | payer MEDICARE ==
[2018-06-11 09:48] LABS: BUN/CREATININE RATIO 13; CREATININE SERUM 1.12 MG/DL (0.60-1.30); GFR ESTIMATED > 60
== END ==
LOC: LAB 08:58
PROVIDERS: ATTEND Nurse Practitioner Family
DX: R91.1 Solitary pulmonary nodule (principal); C80.1 Malignant (primary) neoplasm, unspecified; J44.9 Chronic obstructive pulmonary disease, unspecified
CPT/HCPCS: 36415; 82565; 84520

== ENCOUNTER → 2018-06-14 | Outpatient (CLI) | payer MEDICARE, OTHER ==
[~2018-06-14] MED LIST changes: +HOLD METFORMIN - RECEIVED CONTRAST 20 ML VIAL IV SCH; +IOHEXOL 350 MG/ML 100 ML (OMNIPAQUE 350) VIAL IV ONE
--- NOTE | 2018-06-14 09:38 | Diagnostic Imaging Report ---
PROCEDURE: CT chest with contrast only. TECHNIQUE: Multiple contiguous axial images were obtained through the chest after administration of intravenous contrast. Auto Exposure Controls were utilized during the CT exam to meet ALARA standards for radiation dose reduction. INDICATION: Right lung cancer. Exam compared with study 03/15/2018. An irregular parenchymal opacity in the right upper lobe is increased in size but now shows areas of internal air bronchogram formation. It measures 4.4 x 3.8 cm today, previously 2.3 x 1.8 cm. Left lower paratracheal, AP window and subcarinal shotty lymph nodes are all identical to the previous exam. Small subcentimeter hilar nodes unchanged. No effusion or pneumothorax. Subtle vague lucency in the T8 vertebral body that can only be visualized in the parasagittal reconstructions. No suspicious-appearing lytic or sclerotic bone lesion and no evidence for fracture. Upper abdomen showed intact adrenal glands, the partially visualized liver nonfocal. There is at least mild splenomegaly partly visualized, not appreciably changed. Chronic prominence of interstitial lung markings as a redemonstrated finding however generalized smooth septal thickening diffusely particularly in the lower lobes has increased and an element of edema could not be excluded. There is also increased dependent basilar atelectasis. IMPRESSION: Right upper lobe lesion measures larger than on prior, now showing some areas of air bronchograms. How much of the progression is owing to increased tumor versus some peripheral consolidation along the margins of the tumor is unclear continued followup recommended. Borderline lymph nodes identical to prior, some progressive diffuse interstitial opacity, that change may reflect superimposed edema, increased basilar atelectasis, splenomegaly noted. Dictated by: Dictated on workstation # [id number]
== END ==
LOC: RAD 07:57
PROVIDERS: ATTEND Nurse Practitioner Family
DX: J44.9 Chronic obstructive pulmonary disease, unspecified (principal); C80.1 Malignant (primary) neoplasm, unspecified; J84.9 Interstitial pulmonary disease, unspecified; R91.8 Other nonspecific abnormal finding of lung field
CPT/HCPCS: 71260

== ENCOUNTER 2018-06-20 13:02 | Outpatient (RCR) | payer MEDICARE, OTHER ==
[2018-05-10 08:16] LABS: BASOPHILS % (AUTO) 1 % (0-10); EOSINOPHILS # (AUTO) 0.1 10^3/uL (0.0-0.3); EOSINOPHILS % (AUTO) 2 % (0-10); HEMATOCRIT 38 % (40-54); HEMOGLOBIN 12.2 G/DL (13.3-17.7); LYMPHOCYTES # (AUTO) 0.8 X 10^3 (1.0-4.0); LYMPHOCYTES % (AUTO) 14 % (12-44); MEAN CORPUSCULAR HEMOGLOBIN 27 PG (25-34); MEAN CORPUSCULAR HGB CONC 32 G/DL (32-36); MEAN CORPUSCULAR VOLUME 84 FL (80-99); MEAN PLATELET VOLUME 9.6 FL (7.4-10.4); MONOCYTES # (AUTO) 0.5 X 10^3 (0.0-1.0); MONOCYTES % (AUTO) 10 % (0-12); NEUTROPHILS % (AUTO) 73 % (42-75); PLATELET COUNT 135 10^3/uL (130-400); RED CELL DISTRIBUTION WIDTH 17.2 % (10.0-14.5); WHITE BLOOD COUNT 5.5 10^3/uL (4.3-11.0)
[2018-05-10 08:35] LABS: ALANINE AMINOTRANSFERASE 15 U/L (0-55); ALBUMIN 3.9 GM/DL (3.2-4.5); ALKALINE PHOSPHATASE 91 U/L (40-136); BILIRUBIN,TOTAL 0.6 MG/DL (0.1-1.0); BUN/CREATININE RATIO 16; CALCIUM 9.8 MG/DL (8.5-10.1); CARBON DIOXIDE 24 MMOL/L (21-32); CHLORIDE 103 MMOL/L (98-107); CREATININE SERUM 1.13 MG/DL (0.60-1.30); GFR ESTIMATED > 60; GLUCOSE 111 MG/DL (70-105); POTASSIUM 3.7 MMOL/L (3.6-5.0); SODIUM 137 MMOL/L (135-145); TOTAL PROTEIN 6.5 GM/DL (6.4-8.2)
[~2018-06-20 13:02] MED LIST changes: -HOLD METFORMIN - RECEIVED CONTRAST 20 ML VIAL IV SCH; -IOHEXOL 350 MG/ML 100 ML (OMNIPAQUE 350) VIAL IV ONE
== END 2018-07-16 | disposition home or self-care (01) ==
LOC: ONC 13:02
PROVIDERS: ATTEND Internal Medicine Hematology & Oncology
DX: C34.11 Malignant neoplasm of upper lobe, right bronchus or lung (principal); D61.818 Other pancytopenia; I25.10 Atherosclerotic heart disease of native coronary artery without angina pectoris; I10 Essential (primary) hypertension; E78.5 Hyperlipidemia, unspecified; E11.9 Type 2 diabetes mellitus without complications; E03.9 Hypothyroidism, unspecified; J43.9 Emphysema, unspecified; G47.33 Obstructive sleep apnea (adult) (pediatric); K21.9 Gastro-esophageal reflux disease without esophagitis; K44.9 Diaphragmatic hernia without obstruction or gangrene; F10.20 Alcohol dependence, uncomplicated; K59.00 Constipation, unspecified; I25.2 Old myocardial infarction; E66.01 Morbid (severe) obesity due to excess calories; Z68.39 Body mass index [BMI] 39.0-39.9, adult; Z86.711 Personal history of pulmonary embolism; Z87.891 Personal history of nicotine dependence; Z79.82 Long term (current) use of aspirin; Z79.4 Long term (current) use of insulin; Z79.899 Other long term (current) drug therapy; Z95.1 Presence of aortocoronary bypass graft
CPT/HCPCS: 36415; 80053; 82274; 82728; 83540; 85025; 99213

== ENCOUNTER 2018-07-25 09:40 | Outpatient (CLI) | payer MEDICARE, OTHER ==
[~2018-07-25] VITALS: Ht 188 cm; Wt 149.9 kg
[2018-07-25] MEDS ORDERED: MULT-178 PO (12:58)
--- NOTE | 2018-07-25 12:58 | HISTORY AND PHYSICAL ---
DATE OF SERVICE: CHIEF COMPLAINT: Right foot hammertoe, second toe that Dr. Basilio removed part of the toe by local. HISTORY OF PRESENT ILLNESS: The patient has COPD and last time he was put to sleep, the patient states he ended up at [facility] in [place] and was on ventilator for six weeks. ALLERGIC TO MEDICATIONS: Denies. MEDICATIONS: Now on, omeprazole 40 mg, amlodipine 10 mg, iron, Lipitor 20 mg, levothyroxine 300 mcg, HCTZ 25 mg, bumetanide 2 mg, Protonix 40 mg, metoprolol 50 mg, metformin 1000 mg, Mucinex every 12 hours, Levemir 50 units, NovoLog 50 units, Advair, Spiriva, albuterol nebulizer, Sarah 180, daily vitamin, fish oil, potassium, Levemir, Ecotrin. PAST SURGERY: Triple bypass, angioplasty, several stents. FAMILY HISTORY: COPD and sleep apnea in family. Brother, heart and diabetes. The patient is on oxygen at 3 liters and has COPD and sleep apnea. REVIEW OF SYSTEMS: HEAD: Denies headache, dizziness, fainting. EYES, EARS, NOSE AND THROAT: Denies diplopia, tinnitus or sore throat. RESPIRATORY: Denies asthma, TB, cough, congestion. History of lung cancer and COPD, had five treatments of radiation in [place]. HEART: History of heart problems, hypertension. GASTROINTESTINAL: Appetite off and on. Denies blood in the stools, diarrhea. Admits to constipation. GENITOURINARY: Denies blood, pain or frequency. PHYSICAL EXAMINATION: GENERAL: The patient is a white male who is on oxygen, in no acute respiratory distress at rest. VITAL SIGNS: Pulse 64, blood pressure 90/60, weight 295. EARS: No drainage. EYES: No conjunctivitis or icterus. Throat not inflamed. NECK: Thyroid not enlarged. No abnormal cervical lymphadenopathy noted. HEART: Regular rate and rhythm. LUNGS: Decreased sounds. ABDOMEN: Soft. Liver and spleen nonpalpable. The patient able to have surgery on the local. The patient not to be put to sleep. Job ID: [id number] DocumentID: [id number] Dictated Date: 07/25/2018 10:47:09 Process Manager Date: 07/25/2018 12:22:27 Dictated By: FLORES MEDINA DO
== END 2018-07-25 13:41 | disposition home or self-care (01) ==
LOC: PREOP 09:40
PROVIDERS: ATTEND Podiatrist Foot Surgery
DX: Z01.818 Encounter for other preprocedural examination (principal)

== ENCOUNTER 2018-07-31 05:55 | Day surgery (SDC) | payer MEDICARE, OTHER ==
[~2018-07-31] VITALS: Ht 188 cm; Wt 149.9 kg
[~2018-07-31 05:55] MED LIST changes: +MULT-178 PO
--- OUTSIDE RECORDS SUMMARY | 2018-07-31 05:59 | XMS REPORT ---
Author Author ROCKY MORRIS Organization [facility] Address [address] [place] [address] Care Team Providers Care Pain Management Nurse Name Role Phone ROCKY MORRIS Unavailable PROBLEMS Type Condition ICD9-CM Code RIA54-JR Code Onset Dates Condition Status SNOMED Code Problem Coronary atherosclerosis due to lipid rich plaque I25.83 Active 065607684329186 Problem Panlobular emphysema J43.1 Active 9200049 Problem Atherosclerotic heart disease of 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 Active 983718651761 Problem Type 2 diabetes mellitus with other circulatory complications E11.59 Active 38923704 Problem HTN (hypertension) I10 Active 86780526 Problem CAD (coronary artery disease) I25.10 Active 30081305 Problem Hypothyroid E03.9 Active 30925544 Problem COPD (chronic obstructive pulmonary disease) J44.9 Active 08377256 Problem Environmental allergies Z91.09 Active 989805308 Problem Neuropathy G62.9 Active 973013070 Problem 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 55764110303927 Problem 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 Active 42544586228060 Problem Sleep apnea G47.30 Active 10318158 Problem Edema, unspecified type R60.9 Active 737074768 ALLERGIES No Information ENCOUNTERS Encounter Location Date Diagnosis [facility] [address] [facility] [id number] [address] Dec, [facility] [id number] [address] Dec, [place] [address], [place] [address] Dec, Acute URI J06.9 and BMI 40.0-44.9, adult Z68.41 [place] [address] [address] 04 Nov, 2017 Seborrheic keratosis L82.1 and Pneumonia of right upper lobe due to infectious organism J18.1 [place] [id number] [place] [address] 27 Oct, 2017 [place] [id number] [place] [address] Oct, [place] [id number] [place] [address] Oct, [place] [id number] [place] [address] Oct, [place] [id number] [place] [phone] 05 Oct, 2017 COPD (chronic obstructive pulmonary disease) J44.9 ; Hypothyroid E03.9 and HTN (hypertension) I10 [place] [address] [place] [address] Aug, COPD (chronic obstructive pulmonary disease) J44.9 ; Hypothyroid E03.9 ; HTN (hypertension) I10 ; Type 2 diabetes mellitus with other circulatory complications E11.59 and BMI 45.0-49.9, adult Z68.42 [place] [address] [address] Aug, [place] [id number] [place] [address] Jul, [place] [id number] [place] [address] Jul, Alcoholism F10.20 ; Parkinson's disease (tremor, stiffness, slow motion, unstable posture) G20 and COPD (chronic obstructive pulmonary disease) J44.9 [facility] [id number] [place] [address] June, BMI 45.0-49.9, adult Z68.42 and Simple chronic bronchitis J41.0 [place] [address] [address] June, [facility] [address] [address] May, HTN (hypertension) I10 and Type 2 diabetes mellitus with other circulatory complications E11.59 [place] [address] [address] May, [place] [address] [address] May, COPD exacerbation J44.1 [place] [address] [address] Apr, Pure hypercholesterolemia E78.00 [facility] [address] [address] Apr, [facility] [id number] [place] [address] Mar, Cough R05 ; COPD with acute exacerbation J44.1 and BMI 45.0-49.9, adult Z68.42 [place] [id number] [place] [address] Mar, [facility] [id number] [place] [address] Mar, [place] [address] [address] Feb, [facility] [id number] [place] [address] Feb, BMI 45.0-49.9, adult Z68.42 and Acute non-recurrent maxillary sinusitis J01.00 [facility] [id number] [place] [address] Feb, [facility] [id number] [place] [address] Feb, [facility] [id number] [place] [address] Feb, GERD (gastroesophageal reflux disease) K21.9 [facility] [id number] [place] [address] Jan, Panlobular emphysema J43.1 ; Type 2 diabetes mellitus with hyperglycemia E11.65 and exterminator termite 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 Z79.4 [facility] [id number] [place] [address] Jan, [facility] [id number] [place] [address] Dec, Chronic obstructive pulmonary disease with acute exacerbation J44.1 ; Cough R05 ; 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 ; Type 2 diabetes mellitus with other circulatory complications E11.59 ; nursing home 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 Z79.4 and BMI 45.0-49.9, adult Z68.42 [facility] [id number] [place] [address] Oct, [place] [id number] [place] [address] Sep, [facility] [id number] [place] [address] Aug, [facility] [id number] [place] [address] May, [facility] [id number] [place] [address] May, [facility] [id number] [place] [address] Apr, [facility] [id number], [place] [address] Apr, [facility] [address] [place] [address] Apr, [facility] [id number], [place] [address] Apr, 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 coronary artery without angina pectoris I25.10 ; Coronary atherosclerosis due to lipid rich plaque I25.83 and Edema, unspecified type R60.[address] [facility] [address] [place] [id number] Mar, COPD (chronic obstructive pulmonary disease) J44.9 ; Alcoholism F10.20 and 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 [facility] [address] [place] [id number] Mar, Open wound T14.8 [place] [address] [place] [address] Mar, Environmental allergies Z91.09 ; Open wound, lower leg, right, initial encounter S81.801A ; GERD (gastroesophageal reflux disease) K21.9 ; Hypothyroid E03.9 ; Hypercholesterolemia E78.0 ; Sleep apnea G47.30 ; Neuropathy G62.9 ; Edema, unspecified type R60.9 ; 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 ; Coronary artery disease involving [place] coronary artery of 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 ; COPD (chronic obstructive pulmonary disease) J44.9 and Sleep apnea G47.30 [place] [id number] [place] [address] Mar, [place] [id number] [place] [address] Mar, [place] [id number] [place] [address] Feb, 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 ; GERD (gastroesophageal reflux disease) K21.9 ; Hypothyroid E03.9 ; Sleep apnea G47.30 ; Parkinson's disease (tremor, stiffness, slow motion, unstable posture) G20 ; CAD (coronary artery disease) I25.10 ; Edema, unspecified type R60.9 ; COPD (chronic obstructive pulmonary disease) J44.9 and Neuropathy G62.[address] [place] [address] Jan, HTN (hypertension) I10 [address] [place] [address] Jan, COPD (chronic obstructive pulmonary disease) J44.9 ; Hypothyroid E03.9 ; Environmental allergies Z91.09 ; 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 ; Hypercholesterolemia E78.0 ; Sleep apnea G47.30 ; CAD (coronary artery disease) I25.10 ; HTN (hypertension) I10 ; GERD (gastroesophageal reflux disease) K21.9 ; Anemia D64.9 and Edema, unspecified type R60.9 [address] [place] [address] Dec, [place] [address], [place] [address] Dec, 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9 ; Environmental allergies Z91.09 ; CAD (coronary artery disease) I25.10 ; Hypercholesterolemia E78.0 ; COPD (chronic obstructive pulmonary disease) J44.9 and Sleep apnea G47.30 [place] [id number] [place] [address] Jul, COPD (chronic obstructive pulmonary disease) J44.9 [place] [id number] [place] [address] June, [place] [id number] [place] [address] May, [place] [id number] [place] [address] Apr, COPD (chronic obstructive pulmonary disease) J44.9 ; Sleep apnea G47.30 ; HTN (hypertension) I10 ; Hypothyroid E03.9 ; Environmental allergies Z91.09 ; CAD (coronary artery disease) I25.10 ; Hypercholesterolemia E78.0 and 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.39 [place] [id number] [place] [address] Apr, [place] [address] [place] [address] Mar, [facility] [id number] [place] [address] Mar, [facility] [id number] [place] [address] Feb, [facility] [id number] [place] [address] Feb, 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 ; Hypothyroid E03.9 ; HTN (hypertension) I10 ; COPD (chronic obstructive pulmonary disease) J44.9 ; Sleep apnea G47.30 ; Hypercholesterolemia E78.0 ; Environmental allergies Z91.09 ; Diarrhea R19.7 and GERD (gastroesophageal reflux disease) K21.9 [place] [id number] [place] [address] Feb, [facility] [id number] [place] [address] Jan, [facility] [id number] [place] [address] Jan, [place] [id number] [place] [address] Jan, [place] [id number] [place] [address] Jan, Anemia D64.9 [facility] [id number] [place] [address] 14 Jan, 2015 [facility] [id number] [place] [address] 10 Jan, 2015 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 Garcia 1999 Surgical History appendectomy Surgical History esophageal wrap Surgical History Biopsy - check for cancer 10/2017 Surgical History heart cath 12/20/2017 Hospitalization History lung infection at [facility] 09/2014 Hospitalization History double pneumonia 04/2015 Hospitalization History Double pneumonia 07/2015 Hospitalization History [facility] allergic reaction 03/2016 Hospitalization History [facility] spent 2 weeks 03/2016 Hospitalization History [facility]- Pneumonia, COPD with Acute Exacerbation 05/19/2017 Hospitalization History surgery 12/20/2017
--- OUTSIDE RECORDS SUMMARY | 2018-07-31 05:59 | XMS REPORT ---
Author Author ROCKY MORRIS Organization [facility] Address [address] [place] [address] Care Team Providers Care Supplier Engineer Name Role Phone ROCKY MORRIS Unavailable PROBLEMS Type Condition ICD9-CM Code WWD06-PP Code Onset Dates Condition Status SNOMED Code Problem COPD (chronic obstructive pulmonary disease) J44.9 Active 31159106 Problem Hypothyroid E03.9 Active 50426193 Problem CAD (coronary artery disease) I25.10 Active 10087118 Problem HTN (hypertension) I10 Active 12096776 Problem Environmental allergies Z91.09 Active 864805808 Problem Sleep apnea G47.30 Active 37500067 Problem 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 Active 44871106850100 Problem Neuropathy G62.9 Active 170096465 Problem Atherosclerotic heart disease of [place] coronary artery without angina pectoris I25.10 Active 231516419892162 Problem Panlobular emphysema J43.1 Active 2096396 Problem Type 2 diabetes mellitus with hyperglycemia E11.65 Active 220978034 Problem Simple chronic bronchitis J41.0 Active 66008213 Problem Coronary atherosclerosis due to lipid rich plaque I25.83 Active 997484498209884 Problem Pure hypercholesterolemia E78.00 Active 192980126 Problem Body mass index (BMI) of 40.0-44.9 in adult Z68.41 Active 167774469 Problem Edema, unspecified type R60.9 Active 815730854 Problem 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 15455889853260 Problem 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 Active 540300104609 Problem FPC 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 Z79.4 Active 596065493 Problem Type 2 diabetes mellitus with other circulatory complications E11.59 Active 48611121 Problem COPD with acute exacerbation J44.1 Active [id number] ALLERGIES No Information ENCOUNTERS Encounter Location Date Diagnosis [facility] [address] [facility] [id number] [address] May, [facility] [address] [address] 14 Apr, 2018 Chronic obstructive pulmonary disease with acute exacerbation J44.1 [facility] [id number] [place] [phone] 08 Apr, 2018 Encounter for Medicare annual wellness exam Z00.00 ; COPD (chronic obstructive pulmonary disease) J44.9 ; Type 2 diabetes mellitus with hyperglycemia E11.65 ; CAD (coronary artery disease) I25.10 and Morbid obesity E66.01 [facility] [id number] [place] [address] Apr, [facility] [address] [address] Apr, [facility] [id number] [place] [phone] 28 Mar, 2018 COPD (chronic obstructive pulmonary disease) J44.9 ; Type 2 diabetes mellitus with other circulatory complications E11.59 ; Body mass index (BMI) of 40.0-44.9 in adult Z68.41 ; Morbid obesity E66.01 and Pneumonia of both lower lobes due to infectious organism J18.1 [facility] [facility] [id number] [place] [address] Mar, [facility] [id number] [place] [address] Mar, [facility] [id number] [place] [address] Feb, [facility] [id number] [place] [phone] Feb, [facility] [id number] [place] [phone] Jan, Bronchitis J40 [facility] [id number] [place] [phone] Dec, [facility] [id number] [place] [phone] Dec, [facility] [facility] [id number] [place] [address] Dec, Acute URI J06.9 and BMI 40.0-44.9, adult Z68.41 [facility] [id number] [place] [address] 04 Nov, 2017 Seborrheic keratosis L82.1 and Pneumonia of right upper lobe due to infectious organism J18.1 [facility] [facility] [id number] [place] [address] Oct, [facility] [facility] [address] [address] Oct, [facility] [id number] [place] [address] Oct, [facility] [id number] [place] [address] Oct, [facility] [id number] [place] [address] 05 Oct, 2017 COPD (chronic obstructive pulmonary disease) J44.9 ; Hypothyroid E03.9 and HTN (hypertension) I10 [facility] [id number] [place] [phone] 18 Aug, 2017 COPD (chronic obstructive pulmonary disease) J44.9 ; Hypothyroid E03.9 ; HTN (hypertension) I10 ; Type 2 diabetes mellitus with other circulatory complications E11.59 and BMI 45.0-49.9, adult Z68.42 [facility] [id number] [place] [address] Aug, [facility] [id number] [place] [address] Jul, [facility] [facility] [id number] [place] [address] Jul, Alcoholism F10.20 ; Parkinson's disease (tremor, stiffness, slow motion, unstable posture) G20 and COPD (chronic obstructive pulmonary disease) J44.9 [facility] [address] [address] June, BMI 45.0-49.9, adult Z68.42 and Simple chronic bronchitis J41.0 [place] [address] [address] June, [facility] [address] [address] May, HTN (hypertension) I10 and Type 2 diabetes mellitus with other circulatory complications E11.59 [facility] [address] [address] May, [place] [address] [address] May, COPD exacerbation J44.1 [facility] [address] [address] Apr, Pure hypercholesterolemia E78.00 [place] [address] [address] Apr, [facility] [address] [address] Mar, Cough R05 ; COPD with acute exacerbation J44.1 and BMI 45.0-49.9, adult Z68.42 [place] [address] [address] Mar, [facility] [address] [address] Mar, [place] [address] [address] Feb, [facility] [address] [address] Feb, BMI 45.0-49.9, adult Z68.42 and Acute non-recurrent maxillary sinusitis J01.00 [facility] [id number] [place] [address] Feb, [facility] [id number] [place] [address] Feb, [facility] [id number] [place] [address] Feb, GERD (gastroesophageal reflux disease) K21.9 [facility] [id number] [place] [address] Jan, Panlobular emphysema J43.1 ; Type 2 diabetes mellitus with hyperglycemia E11.65 and FPC 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 Z79.4 [facility] [id number] [place] [address] Jan, [facility] [id number] [place] [address] Dec, Chronic obstructive pulmonary disease with acute exacerbation J44.1 ; Cough R05 ; 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 ; Type 2 diabetes mellitus with other circulatory complications E11.59 ; terminal supervisor 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 Z79.4 and BMI 45.0-49.9, adult Z68.42 [facility] [id number] [place] [address] Oct, [facility] [id number] [place] [address] Sep, [facility] [id number] [place] [address] Aug, [facility] [id number] [place] [address] May, [facility] [id number] [place] [address] May, [facility] [id number] [place] [address] Apr, [facility] [address] [address] Apr, [facility] [address] [address] Apr, [facility] [id number] [address] Apr, 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 ; GERD (gastroesophageal reflux disease) K21.9 ; HTN (hypertension) I10 ; Environmental allergies Z91.09 ; COPD (chronic obstructive pulmonary disease) J44.9 ; Sleep apnea G47.30 ; Hypothyroid E03.9 ; Neuropathy G62.9 ; Pure hypercholesterolemia E78.00 ; Atherosclerotic heart disease of [place] coronary artery without angina pectoris I25.10 ; Coronary atherosclerosis due to lipid rich plaque I25.83 and Edema, unspecified type R60.[address] [place] [id number] Mar, COPD (chronic obstructive pulmonary disease) J44.9 ; Alcoholism F10.20 and 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 [place] [id number] Mar, Open wound T14.8 [facility] [facility] [id number] [address] Mar, Environmental allergies Z91.09 ; Open wound, lower leg, right, initial encounter S81.801A ; GERD (gastroesophageal reflux disease) K21.9 ; Hypothyroid E03.9 ; Hypercholesterolemia E78.0 ; Sleep apnea G47.30 ; Neuropathy G62.9 ; Edema, unspecified type R60.9 ; 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 ; Coronary artery disease involving [place] coronary artery of [place] heart without angina pectoris I25.10 ; 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.39 and COPD (chronic obstructive pulmonary disease) J44.9 [place] [id number] [address] Mar, [place] [address], [place] [address] Mar, [place] [id number] [place] [address] Mar, [facility] [address] [place] [id number] Mar, Alcoholism F10.20 ; 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 ; COPD (chronic obstructive pulmonary disease) J44.9 and Sleep apnea G47.30 [place] [id number] [place] [address] Mar, [address] [address] Mar, [place] [id number] [place] [address] Feb, 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.39 ; GERD (gastroesophageal reflux disease) K21.9 ; Hypothyroid E03.9 ; Sleep apnea G47.30 ; Parkinson's disease (tremor, stiffness, slow motion, unstable posture) G20 ; CAD (coronary artery disease) I25.10 ; Edema, unspecified type R60.9 ; COPD (chronic obstructive pulmonary disease) J44.9 and Neuropathy G62.9 [address] [place] [address] Jan, HTN (hypertension) I10 [place] [id number] [place] [address] Jan, COPD (chronic obstructive pulmonary disease) J44.9 ; Hypothyroid E03.9 ; Environmental allergies Z91.09 ; 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.39 ; Hypercholesterolemia E78.0 ; Sleep apnea G47.30 ; CAD (coronary artery disease) I25.10 ; HTN (hypertension) I10 ; GERD (gastroesophageal reflux disease) K21.9 ; Anemia D64.9 and Edema, unspecified type R60.9 [place] [id number] [place] [address] Dec, [facility] [address] [place] [address] Dec, Type 2 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 E11.39 ; GERD (gastroesophageal reflux disease) K21.9 ; HTN (hypertension) I10 ; Hypothyroid E03.9 ; Environmental allergies Z91.09 ; Sleep apnea G47.30 ; CAD (coronary artery disease) I25.10 ; Hypercholesterolemia E78.0 and COPD (chronic obstructive pulmonary disease) J44.9 [place] [id number] [place] [address] Oct, [place] [address] [address] Aug, Type 2 diabetes mellitus with other diabetic ophthalmic complication E11.39 ; GERD (gastroesophageal reflux disease) K21.9 ; Hypothyroid E03.9 ; Environmental allergies Z91.09 ; CAD (coronary artery disease) I25.10 ; Hypercholesterolemia E78.0 ; COPD (chronic obstructive pulmonary disease) J44.9 and Sleep apnea G47.30 [facility] [id number] [place] [address] Jul, COPD (chronic obstructive pulmonary disease) J44.9 [facility] [id number] [place] [address] June, [facility] [id number] [place] [address] May, [facility] [facility] [id number] [place] [address] Apr, COPD (chronic obstructive pulmonary disease) J44.9 ; Sleep apnea G47.30 ; HTN (hypertension) I10 ; Hypothyroid E03.9 ; Environmental allergies Z91.09 ; CAD (coronary artery disease) I25.10 ; Hypercholesterolemia E78.0 and Type 2 diabetes mellitus with other diabetic ophthalmic complication E11.39 [facility] [id number] [place] [address] Apr, [place] [address] [address] Mar, [facility] [id number] [place] [phone] Mar, [facility] [address], [place] [address] Feb, [place] [id number] [place] [address] Feb, Type 2 diabetes mellitus with other diabetic ophthalmic complication E11.39 ; Hypothyroid E03.9 ; HTN (hypertension) I10 ; COPD (chronic obstructive pulmonary disease) J44.9 ; Sleep apnea G47.30 ; Hypercholesterolemia E78.0 ; Environmental allergies Z91.09 ; Diarrhea R19.7 and GERD (gastroesophageal reflux disease) K21.9 [place] [id number] [address] Feb, [place] [address] [place] [address] Jan, [place] [id number] [place] [phone] Jan, [place] [id number] [address] Jan, [place] [address], [place] [address] 15 Jan, 2015 Anemia D64.9 [facility] [address] [address] 14 Jan, 2015 [place] [address] [place] [address] 10 Jan, 2015 Type 2 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 E11.39 ; Hypothyroid E03.9 ; HTN (hypertension) I10 ; COPD (chronic obstructive pulmonary disease) J44.9 ; Sleep apnea G47.30 ; Hypercholesterolemia E78.0 ; CAD (coronary artery disease) I25.10 and Environmental allergies Z91.09 IMMUNIZATIONS No Known Immunizations SOCIAL HISTORY Never Assessed REASON FOR VISIT LVM PLAN OF CARE VITAL SIGNS MEDICATIONS Medication Instructions Dosage Frequency Start Date End Date Duration Status Bumex 2 MG Orally Every other day 1 tablet Active RESULTS No Results PROCEDURES No Known [...] 12/20/2017 Hospitalization History lung infection at [facility] 09/2014 Hospitalization History double pneumonia 04/2015 Hospitalization History Double pneumonia 07/2015 Hospitalization History [facility] allergic reaction 03/2016 Hospitalization History [facility] spent 2 weeks 03/2016 Hospitalization History [facility]- Pneumonia, COPD with Acute Exacerbation 05/19/2017 Hospitalization History surgery 12/20/2017 Hospitalization History [facility] Pneumonia 03/2018
--- OUTSIDE RECORDS SUMMARY | 2018-07-31 06:00 | XMS REPORT ---
Author Author ROCKY MORRIS Organization [facility] Address [address] [place] [address] Care Team Providers Care Dry Folder Cloth Name Role Phone ROCKY MORRIS Unavailable PROBLEMS Type Condition ICD9-CM Code [id number] Code Onset Dates Condition Status SNOMED Code Problem Coronary atherosclerosis due to lipid rich plaque I25.83 Active 802394374799991 Problem Panlobular emphysema J43.1 Active 1516538 Problem Atherosclerotic heart disease of [place] coronary artery without angina pectoris I25.10 Active 840319589343779 Problem Simple chronic bronchitis J41.0 Active 70141470 Problem Pure hypercholesterolemia E78.00 Active 331118338 Problem COPD with acute exacerbation J44.1 Active 255102285 Problem 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 Active 082902607 Problem Type 2 diabetes mellitus with hyperglycemia E11.65 Active 933064907 Problem 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 Active 126219115101 Problem Type 2 diabetes mellitus with other circulatory complications E11.59 Active 56074226 Problem HTN (hypertension) I10 Active 70965605 Problem CAD (coronary artery disease) I25.10 Active 23677591 Problem Hypothyroid E03.9 Active 97514227 Problem COPD (chronic obstructive pulmonary disease) J44.9 Active 43174910 Problem Environmental allergies Z91.09 Active 590110821 Problem Neuropathy G62.9 Active 813447385 Problem 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 [id number] [address] Dec, [facility] [address] [id number] [address] Dec, Acute URI J06.9 and BMI 40.0-44.9, adult Z68.41 [place] [id number] [place] [address] 04 Nov, 2017 Seborrheic keratosis L82.1 and Pneumonia of right upper lobe due to infectious organism J18.1 [place] [id number] [place] [address] Oct, [place] [address] [address] Oct, [place] [address] [address] Oct, [place] [address] [address] Oct, [place] [address] [address] 05 Oct, 2017 COPD (chronic obstructive pulmonary disease) J44.9 ; Hypothyroid E03.9 and HTN (hypertension) I10 [place] [address] [address] Aug, COPD (chronic obstructive pulmonary disease) J44.9 ; Hypothyroid E03.9 ; HTN (hypertension) I10 ; Type 2 diabetes mellitus with other circulatory complications E11.59 and BMI 45.0-49.9, adult Z68.42 [place] [id number] [place] [address] Aug, [place] [id number] [place] [address] Jul, [place] [address] [address] Jul, Alcoholism F10.20 ; Parkinson's disease (tremor, stiffness, slow motion, unstable posture) G20 and COPD (chronic obstructive pulmonary disease) J44.9 [place] [address] [place] [address] June, BMI 45.0-49.9, adult Z68.42 and Simple chronic bronchitis J41.0 [place] [address] [address] June, [place] [address] [address] May, HTN (hypertension) I10 and Type 2 diabetes mellitus with other circulatory complications E11.59 [place] [address] [address] May, [place] [address] [address] May, COPD exacerbation J44.1 [place] [address] [address] Apr, Pure hypercholesterolemia E78.00 [place] [address] [address] Apr, [facility] [address] [address] Mar, Cough R05 ; COPD with acute exacerbation J44.1 and BMI 45.0-49.9, adult Z68.42 [place] [address] [address] Mar, [place] [address] [address] Mar, [place] [address] [address] Feb, [place] [address] [address] Feb, BMI 45.0-49.9, adult Z68.42 and Acute non-recurrent maxillary sinusitis J01.00 [place] [address] [address] Feb, [facility] [id number] [place] [address] Feb, [facility] [id number] [place] [address] Feb, GERD (gastroesophageal reflux disease) K21.9 [facility] [id number] [place] [address] Jan, Panlobular emphysema J43.1 ; Type 2 diabetes mellitus with hyperglycemia E11.65 and 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.4 [facility] [id number] [place] [address] Jan, [facility] [id number] [place] [address] Dec, Chronic obstructive pulmonary disease with acute exacerbation J44.1 ; Cough R05 ; 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 ; Type 2 diabetes mellitus with other circulatory complications E11.59 ; 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.4 and BMI 45.0-49.9, adult Z68.42 [facility] [id number] [place] [address] Oct, [facility] [id number] [place] [address] Sep, [facility] [id number] [place] [address] Aug, [facility] [id number] [place] [address] May, [facility] [id number] [place] [address] May, [facility] [id number] [place] [address] Apr, [facility] [address] [id number] [place] [address] Apr, [place] [id number] [place] [address] Apr, [place] [id number] [place] [address] Apr, 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 ; GERD (gastroesophageal reflux disease) K21.9 ; HTN (hypertension) I10 ; Environmental allergies Z91.09 ; COPD (chronic obstructive pulmonary disease) J44.9 ; Sleep apnea G47.30 ; Hypothyroid E03.9 ; Neuropathy G62.9 ; Pure hypercholesterolemia E78.00 ; Atherosclerotic heart disease of [place] coronary artery without angina pectoris I25.10 ; Coronary atherosclerosis due to lipid rich plaque I25.83 and Edema, unspecified type R60.[address] [facility] [address] [place] [id number] Mar, COPD (chronic obstructive pulmonary disease) J44.9 ; Alcoholism F10.20 and 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 [facility] [address] [place] [id number] Mar, Open wound T14.8 [place] [id number] [place] [address] Mar, Environmental allergies Z91.09 ; Open wound, lower leg, right, initial encounter S81.801A ; GERD (gastroesophageal reflux disease) K21.9 ; Hypothyroid E03.9 ; Hypercholesterolemia E78.0 ; Sleep apnea G47.30 ; Neuropathy G62.9 ; Edema, unspecified type R60.9 ; 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 ; Coronary artery disease involving [place] coronary artery of [place] heart without angina pectoris I25.10 ; 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 and COPD (chronic obstructive pulmonary disease) J44.9 [place] [id number] [place] [address] Mar, [place] [id number] [place] [address] Mar, [place] [id number] [place] [address] Mar, [facility] [address] [place] [id number] Mar, Alcoholism F10.20 ; 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 ; COPD (chronic obstructive pulmonary disease) J44.9 and Sleep apnea G47.30 [place] [address] [address] Mar, [place] [id number] [place] [address] Mar, [place] [id number] [place] [address] Feb, 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 ; GERD (gastroesophageal reflux disease) K21.9 ; Hypothyroid E03.9 ; Sleep apnea G47.30 ; Parkinson's disease (tremor, stiffness, slow motion, unstable posture) G20 ; CAD (coronary artery disease) I25.10 ; Edema, unspecified type R60.9 ; COPD (chronic obstructive pulmonary disease) J44.9 and Neuropathy G62.9 [place] [id number] [place] [address] Jan, HTN (hypertension) I10 [place] [id number] [place] [address] Jan, COPD (chronic obstructive pulmonary disease) J44.9 ; Hypothyroid E03.9 ; Environmental allergies Z91.09 ; 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 ; Hypercholesterolemia E78.0 ; Sleep apnea G47.30 ; CAD (coronary artery disease) I25.10 ; HTN (hypertension) I10 ; GERD (gastroesophageal reflux disease) K21.9 ; Anemia D64.9 and Edema, unspecified type R60.9 [place] [id number] [place] [address] Dec, [place] [id number] [place] [address] 18 Nov, 2016 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 ; GERD (gastroesophageal reflux disease) K21.9 ; HTN (hypertension) I10 ; Hypothyroid E03.9 ; Environmental allergies Z91.09 ; Sleep apnea G47.30 ; CAD (coronary artery disease) I25.10 ; Hypercholesterolemia E78.0 and COPD (chronic obstructive pulmonary disease) J44.9 [place] [address] [address] [id number] [place] [address] Oct, [place] [address] [address] Aug, 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 ; GERD (gastroesophageal reflux disease) K21.9 ; Hypothyroid E03.9 ; Environmental allergies Z91.09 ; CAD (coronary artery disease) I25.10 ; Hypercholesterolemia E78.0 ; COPD (chronic obstructive pulmonary disease) J44.9 and Sleep apnea G47.[address] [address] Jul, COPD (chronic obstructive pulmonary disease) J44.9 [place] [id number] [place] [address] June, [place] [address] [address] May, [place] [id number] [place] [address] Apr, COPD (chronic obstructive pulmonary disease) J44.9 ; Sleep apnea G47.30 ; HTN (hypertension) I10 ; Hypothyroid E03.9 ; Environmental allergies Z91.09 ; CAD (coronary artery disease) I25.10 ; Hypercholesterolemia E78.0 and 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 [place] [id number] [place] [address] Apr, [place] [id number] [place] [address] Mar, [address] [place] [address] Mar, [facility] [id number] [place] [address] Feb, [facility] [id number] [place] [address] Feb, 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 ; Hypothyroid E03.9 ; HTN (hypertension) I10 ; COPD (chronic obstructive pulmonary disease) J44.9 ; Sleep apnea G47.30 ; Hypercholesterolemia E78.0 ; Environmental allergies Z91.09 ; Diarrhea R19.7 and GERD (gastroesophageal reflux disease) K21.9 [place] [id number] [place] [address] Feb, [place] [id number] [place] [address] Jan, [place] [id number] [place] [address] Jan, [place] [id number] [place] [address] Jan, [place] [id number] [place] [address] Jan, Anemia D64.9 [place] [id number] [place] [address] Jan, [place] [id number] [place] [address] 10 Jan, 2015 Type 2 diabetes mellitus [...] a day 1 tablet as needed 8h Dec, 15 days Active RESULTS No Results PROCEDURES [...] History Double pneumonia 07/2015 Hospitalization History [facility] allergic reaction 03/2016 Hospitalization History [facility] spent 2 weeks 03/2016 Hospitalization History [facility]- Pneumonia, COPD with Acute Exacerbation 05/19/2017 Hospitalization History surgery 12/20/2017
--- OUTSIDE RECORDS SUMMARY | 2018-07-31 06:00 | XMS REPORT ---
Author Author MARCOS DIEGO Organization [facility] Address [address] [place] [address] Care Team Providers Care Cardiac Rehabilitation Program Director Name Role Phone MARCOS DIEGO Unavailable PROBLEMS Type Condition ICD9-CM Code QOU00-FZ Code Onset Dates Condition Status SNOMED Code Problem Coronary atherosclerosis due to lipid rich plaque I25.83 Active [id number] Problem Panlobular emphysema J43.1 Active 6706687 Problem Atherosclerotic heart disease of [place] coronary artery without angina pectoris I25.10 Active 629362257177945 Problem Simple chronic bronchitis J41.0 Active 36904555 Problem Pure hypercholesterolemia E78.00 Active 686928014 Problem COPD with acute exacerbation J44.1 Active 210710874 Problem 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 Active 457512965 Problem Type 2 diabetes mellitus with hyperglycemia E11.65 Active 651385716 Problem 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 Active 673992251811 Problem Type 2 diabetes mellitus with other circulatory complications E11.59 Active 54223067 Problem HTN (hypertension) I10 Active 92881206 Problem CAD (coronary artery disease) I25.10 Active 31716861 Problem Hypothyroid E03.9 Active 81095207 Problem COPD (chronic obstructive pulmonary disease) J44.9 Active 73920120 Problem Environmental allergies Z91.09 Active 322578930 Problem Neuropathy G62.9 Active 002333163 Problem 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 31545425050270 Problem 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 Active 58766231351804 Problem Sleep apnea G47.30 Active 03092346 Problem Edema, unspecified type R60.9 Active 128618661 ALLERGIES Substance Reaction Event Type Date Status Gabapentin anaphylaxis Drug Allergy Dec, Active Cozaar anaphylaxis Drug Allergy Dec, Active Benazepril HCl anaphylaxis Drug Allergy Dec, Active ENCOUNTERS Encounter Location Date Diagnosis [facility] [address] [id number], [place] [address] Dec, [facility] [address] [place] [address] Dec, [facility] [id number] [place] [address] Dec, Acute URI J06.9 and BMI 40.0-44.9, adult Z68.41 [facility] [id number] [place] [address] Nov, Seborrheic keratosis L82.1 and Pneumonia of right upper lobe due to infectious organism J18.1 [facility] [facility] [id number] [place] [address] Oct, [facility] [id number] [place] [address] Oct, [facility] [facility] [id number] [place] [address] Oct, [facility] [id number] [place] [address] Oct, [facility] [id number] [place] [address] 05 Oct, 2017 COPD (chronic obstructive pulmonary disease) J44.9 ; Hypothyroid E03.9 and HTN (hypertension) I10 [place] [address] [place] [address] Aug, COPD (chronic obstructive pulmonary disease) J44.9 ; Hypothyroid E03.9 ; HTN (hypertension) I10 ; Type 2 diabetes mellitus with other circulatory complications E11.59 and BMI 45.0-49.9, adult Z68.42 [facility] [id number] [place] [address] Aug, [facility] [id number] [place] [address] Jul, [facility] [address] [place] [address] Jul, Alcoholism F10.20 ; Parkinson's disease (tremor, stiffness, slow motion, unstable posture) G20 and COPD (chronic obstructive pulmonary disease) J44.9 [facility] [id number] [place] [address] June, BMI 45.0-49.9, adult Z68.42 and Simple chronic bronchitis J41.0 [place] [address] [address] June, [facility] [facility] [address] [address] May, HTN (hypertension) I10 and Type 2 diabetes mellitus with other circulatory complications E11.59 [place] [address] [address] May, [place] [address] [address] May, COPD exacerbation J44.1 [place] [address] [address] Apr, Pure hypercholesterolemia E78.00 [place] [address] [address] Apr, [facility] [id number] [place] [address] Mar, Cough R05 ; COPD with acute exacerbation J44.1 and BMI 45.0-49.9, adult Z68.42 [facility] [id number] [place] [address] Mar, [facility] [address] [address] Mar, [facility] [id number] [place] [address] Feb, [facility] [id number] [place] [address] Feb, BMI 45.0-49.9, adult Z68.42 and Acute non-recurrent maxillary sinusitis J01.00 [facility] [id number] [place] [address] Feb, [facility] [address] [address] Feb, [place] [address] [address] Feb, GERD (gastroesophageal reflux disease) K21.[address] [address] Jan, Panlobular emphysema J43.1 ; Type 2 diabetes mellitus with hyperglycemia E11.65 and nursing home 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 Z79.[address] [address] Jan, [facility] [id number] [place] [address] Dec, Chronic obstructive pulmonary disease with acute exacerbation J44.1 ; Cough R05 ; 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 ; Type 2 diabetes mellitus with other circulatory complications E11.59 ; 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 and BMI 45.0-49.9, adult Z68.42 [place] [id number] [place] [address] Oct, [facility] [facility] [id number] [place] [address] Sep, [place] [address] [address] Aug, [facility] [id number] [place] [address] May, [facility] [id number] [place] [address] May, [place] [id number] [address] Apr, [facility] [facility] [id number] [place] [address] Apr, [place] [address] [place] [address] Apr, [facility] [id number] [place] [address] Apr, 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 ; GERD (gastroesophageal reflux disease) K21.9 ; HTN (hypertension) I10 ; Environmental allergies Z91.09 ; COPD (chronic obstructive pulmonary disease) J44.9 ; Sleep apnea G47.30 ; Hypothyroid E03.9 ; Neuropathy G62.9 ; Pure hypercholesterolemia E78.00 ; Atherosclerotic heart disease of [place] coronary artery without angina pectoris I25.10 ; Coronary atherosclerosis due to lipid rich plaque I25.83 and Edema, unspecified type R60.9 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 system master [address] [place] [id number] Mar, COPD (chronic obstructive pulmonary disease) J44.9 ; Alcoholism F10.20 and 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 Droid system master [address] [place] [id number] Mar, Open wound T14.8 [address] [place] [address] Mar, Environmental allergies Z91.09 ; Open wound, lower leg, right, initial encounter S81.801A ; GERD (gastroesophageal reflux disease) K21.9 ; Hypothyroid E03.9 ; Hypercholesterolemia E78.0 ; Sleep apnea G47.30 ; Neuropathy G62.9 ; Edema, unspecified type R60.9 ; 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 ; Coronary artery disease involving [place] coronary artery of [place] heart without angina pectoris I25.10 ; 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 and COPD (chronic obstructive pulmonary disease) J44.9 [facility] [address] [address] Mar, [facility] [address] [place] [address] Mar, [facility] [address] [place] [address] Mar, Droid system master [address] [id number] Mar, Alcoholism F10.20 ; 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 ; COPD (chronic obstructive pulmonary disease) J44.9 and Sleep apnea G47.30 [id number] [place] [address] Mar, [facility] [id number] [place] [address] Mar, [facility] [id number] [place] [address] Feb, 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 ; GERD (gastroesophageal reflux disease) K21.9 ; Hypothyroid E03.9 ; Sleep apnea G47.30 ; Parkinson's disease (tremor, stiffness, slow motion, unstable posture) G20 ; CAD (coronary artery disease) I25.10 ; Edema, unspecified type R60.9 ; COPD (chronic obstructive pulmonary disease) J44.9 and Neuropathy G62.9 [place] [address], [place] [address] Jan, HTN (hypertension) I10 [address] [place] [address] Jan, COPD (chronic obstructive pulmonary disease) J44.9 ; Hypothyroid E03.9 ; Environmental allergies Z91.09 ; 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 ; Hypercholesterolemia E78.0 ; Sleep apnea G47.30 ; CAD (coronary artery disease) I25.10 ; HTN (hypertension) I10 ; GERD (gastroesophageal reflux disease) K21.9 ; Anemia D64.9 and Edema, unspecified type R60.9 [place] [address], [place] [address] Dec, [facility] [facility] [id number] [place] [address] Dec, 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.39 ; GERD (gastroesophageal reflux disease) K21.9 ; HTN (hypertension) I10 ; Hypothyroid E03.9 ; Environmental allergies Z91.09 ; Sleep apnea G47.30 ; CAD (coronary artery disease) I25.10 ; Hypercholesterolemia E78.0 and COPD (chronic obstructive pulmonary disease) J44.9 [place] [id number] [place] [address] Oct, [facility] [facility] [id number] [place] [address] Aug, 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 ; GERD (gastroesophageal reflux disease) K21.9 ; Hypothyroid E03.9 ; Environmental allergies Z91.09 ; CAD (coronary artery disease) I25.10 ; Hypercholesterolemia E78.0 ; COPD (chronic obstructive pulmonary disease) J44.9 and Sleep apnea G47.30 [place] [id number] [place] [address] Jul, COPD (chronic obstructive pulmonary disease) J44.9 [place] [id number] [place] [address] June, [place] [id number] [place] [address] May, [place] [id number] [place] [address] Apr, COPD (chronic obstructive pulmonary disease) J44.9 ; Sleep apnea G47.30 ; HTN (hypertension) I10 ; Hypothyroid E03.9 ; Environmental allergies Z91.09 ; CAD (coronary artery disease) I25.10 ; Hypercholesterolemia E78.0 and 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.39 [place] [address], [place] [address] Apr, [facility] [id number] [place] [address] Mar, [facility] [address] [address] Mar, [facility] [id number] [place] [address] Feb, [facility] [address] [place] [address] Feb, Type 2 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 E11.39 ; Hypothyroid E03.9 ; HTN (hypertension) I10 ; COPD (chronic obstructive pulmonary disease) J44.9 ; Sleep apnea G47.30 ; Hypercholesterolemia E78.0 ; Environmental allergies Z91.09 ; Diarrhea R19.7 and GERD (gastroesophageal reflux disease) K21.9 [place] [address] [address] Feb, [facility] [id number] [place] [address] Jan, [facility] [id number] [place] [address] Jan, [facility] [address] [place] [address] 16 Jan, 2015 [place] [address] [place] [address] 15 Jan, 2015 Anemia D64.9 [facility] [address], [place] [address] 14 Jan, 2015 [facility] [address] [place] [address] 10 Jan, 2015 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 also having a ruuny nose PLAN OF CARE Activity Details Follow Up prn Reason: VITAL SIGNS Height 72.0 in 2018-01-02 Weight 329.8 lbs 2018-01-02 Temperature 97.5 degrees Fahrenheit 2018-01-02 Heart Rate 75 bpm 2018-01-02 Respiratory Rate 18 2018-01-02 Oximetry w/ oxygen:94 % 2018-01-02 BMI 44.72 kg/m2 2018-01-02 Blood pressure systolic 110 mmHg 2018-01-02 Blood pressure diastolic 64 mmHg 2018-01-02 MEDICATIONS Medication Instructions Dosage Frequency Start Date End Date Duration Status Nitrostat 0.4 MG Active Hydrochlorothiazide 25 MG TAKE ONE TABLET BY MOUTH ONCE DAILY 30 Active Hydrocodone-Acetaminophen 7.5-325 MG Orally 3 times a day 1 tablet as needed 8h Oct, 15 days Active Multivitamin Adult - Active Metoprolol Succinate 200 mg Orally Once a day 1 tablet 24h 30 days Active Aspirin 81 MG Orally Once a day 1 tablet 24h Active Docusate Sodium 250 MG Orally twice a day prn constipation 1 capsule as needed Active Atorvastatin Calcium 40 MG TAKE ONE TABLET BY MOUTH ONCE DAILY 30 Active Amlodipine Besylate 10 MG Orally Once a day 1 tablet 24h Active NovoLog Flexpen 100 UNIT/ML INJECT 50 UNITS SUBCUTANEOUSLY THREE TIMES DAILY 30 Active Guaifenesin 200 MG Orally every 4 hrs 1 tablet as needed 4h Active Ipratropium Arnold 0.06 % Nasally Twice a day, prn rhinitis 2 sprays in each nostril Dec, 28 days Active Advair Diskus 250-50 MCG/DOSE INHALE ONE PUFF BY MOUTH TWICE DAILY 30 Active Acetaminophen 325 MG Orally every 4 hrs prn pain 1 capsule as needed Active Fish Oil 8h Active Loratadine 10 MG Orally Once a day 1 tablet 24h Active Tessalon Perles 100 mg Orally Three times a day 1 capsule as needed 8h Dec, 7 days Active Metformin HCl 1000 MG TAKE ONE TABLET BY MOUTH TWICE DAILY WITH MEALS 30 Active Spiriva HandiHaler 18 MCG INHALE CONTENTS OF ONE CAPSULE BY MOUTH ONCE DAILY (TWO INHALATIONS PER ONE CAPSULE) 30 Active Potassium 99 MG Orally Once a day 1 tablet 24h Active Omeprazole 40 mg TAKE ONE CAPSULE BY MOUTH ONCE DAILY 30 Active Levemir FlexTouch 100 UNIT/ML INJECT 50 UNITS SUBCUTANEOUSLY TWICE DAILY 30 Active Bumex 2 MG Orally Once a day 1 tablet 24h 30 Active Sarah Allergy 180 MG Orally Once a day 1 tablet as needed 24h Active Levaquin 750 MG Orally Once a day 24h Active Albuterol Sulfate (2.5 MG/3ML) 0.083% Inhalation every 4 hours prn 3 ml Active Oxygen 3 L by inhalation route continious 1 puff Apr, Active Levothyroxine Sodium 150 MCG TAKE TWO (2) TABLETS BY MOUTH ONCE DAILY (MUST HAVE APPOINTMENT FOR REFILL) 30 Active RESULTS No Results PROCEDURES Procedure Date Ordered Result Body Site [facility] VISIT ESTABLISHED PATIENT Jan 02, 2018 INSTRUCTIONS MEDICATIONS ADMINISTERED No Known Medications MEDICAL [...] [facility] allergic reaction 03/2016 Hospitalization History [facility] spent 2 weeks 03/2016 Hospitalization History [facility], [place], operated by [facility]- Pneumonia, COPD with Acute Exacerbation 05/19/2017 Hospitalization History surgery 12/20/2017
[2018-07-31 06:20] VITALS: BP 127/84
[2018-07-31] MEDS ORDERED: ceFAZolin INJECTION 1,000 MG ONE (06:47)
[2018-07-31] MEDS ORDERED: LACTATED RINGERS 1,000 ML IV PRN (06:49)
[2018-07-31] MEDS ORDERED: ceFAZolin INJECTION 1,000 MG in WATER (STERILE) FOR INJECTION 10 ML IV ONE (07:00)
[2018-07-31] MEDS ORDERED: MEPIVACAINE (CARBOCAINE) 2% 50 ML VIAL ONE (07:00)
[2018-07-31] MEDS ORDERED: CATHETER FLUSH 10 ML SYR IV PRN (07:00)
[2018-07-31] MEDS ORDERED: BUPIVACAINE 0.5% 30 ML (SENSORCAINE) VIAL ONE (07:00)
--- NOTE | 2018-07-31 07:16 | Progress Note-Pre Operative ---
Pre-Operative Progress Note H&P Reviewed The H&P was reviewed, patient examined and no changes noted. Date Seen by Provider: Jul 31, 2018 Time Seen by Provider: 07:18 Date H&P Reviewed: Jul 31, 2018 Time H&P Reviewed: 07:19 Pre-Operative Diagnosis: hammer toe with osteomyelitis second digit right foot. FLORES POWERS DPM Jul 31, 2018 07:16
[2018-07-31 08:10] VITALS: BP 142/71
[2018-07-31] MEDS ORDERED: LACTATED RINGERS 1,000 ML IV SCH (08:12)
--- NOTE | 2018-07-31 08:12 | Progress Note-Post Operative ---
Post-Operative Progess Note Surgeon (s)/Drilling Contractor (s) Surgeon FLORES POWERS DPM Drilling Contractor: none Pre-Operative Diagnosis hammer toe with osteomyelitis second digit right foot. Post-Operative Diagnosis same Procedure & Operative Findings Date of Procedure 07/31/18 Procedure Performed/Findings amputation second digit right foot Anesthesia Type local Estimated Blood Loss Estimated blood loss (mL): min Specimens/Packing Specimens Removed second digit Packing: none FLORES POWERS DPM Jul 31, 2018 08:12
[2018-07-31] MEDS ORDERED: HYDROcodone/APAP 5 MG/325 MG (LORTAB) TAB PO PRN (08:15)
--- NOTE | 2018-07-31 08:18 | Discharge Instructions ---
Discharge Instructions Discharge Medications New, Converted or Re-Newed RX: RX Given to Pt/Family Patient Instructions Patient Instructions 1. Follow up in office in 2 weeks. 2. Diet as tolerated. 3. Activity as tolerated. Activity & Diet Activity as Tolerated: Yes FLORES POWERS DPM Jul 31, 2018 08:18
[2018-07-31 08:40] VITALS: BP 139/84
--- NOTE | 2018-07-31 13:10 | OPERATIVE REPORT ---
DATE OF SERVICE: 07/31/2018 PREOPERATIVE DIAGNOSIS: Hammertoe with osteomyelitis of second digit, right foot. POSTOPERATIVE DIAGNOSIS: Hammertoe with osteomyelitis of second digit, right foot. PROCEDURE PERFORMED: Disarticulation amputation of the second digit at the MPJ, second right. DESCRIPTION OF PROCEDURE: With the patient in supine position, having been affected by a local anesthetic utilizing a 50:50 mixture of 0.5% Marcaine and 1% Carbocaine plain, a total of 10 mL instilled. Sterile prep and drape were performed. Two semielliptical incisions were made around the base of the second digit at the MPJ. These were deepened with sharp and blunt dissection. Vital structures identified and retracted. These vessels were cauterized and tied as necessary. Dissection was carried deep to the second MPJ. This was incised circumferentially and the second digit was removed in toto. The area was flushed with copious amounts of saline. Deep closure was accomplished by a continuous suture of 4-0 Vicryl. Skin was closed with continuous locked suture of 4-0 Prolene. Adaptic and a Betadine wet to dry dressing along with circular Coban was applied, carried above to the mid tarsus. The patient tolerated the procedure well with minimal blood loss, left the OR to PAR in good condition. He is to be seen in the office in 11 days for appropriate followup care. Job ID: [id number] DocumentID: [id number] Dictated Date: 07/31/2018 08:21:32 Emissions Inspector Date: 07/31/2018 13:09:01 Dictated By: FLORES POWERS DPM
--- NOTE | 2018-08-02 08:30 | HISTORY AND PHYSICAL ---
DATE OF SERVICE: CHIEF COMPLAINT: Right foot hammertoe, second toe that Dr. Basilio removed part of the toe by local. HISTORY OF PRESENT ILLNESS: The patient has COPD and last time he was put to sleep, the patient states he ended up at [facility] in [place] and was on ventilator for six weeks. ALLERGIC TO MEDICATIONS: Denies. MEDICATIONS: Now on, omeprazole 40 mg, amlodipine 10 mg, iron, Lipitor 20 mg, levothyroxine 300 mcg, HCTZ 25 mg, bumetanide 2 mg, Protonix 40 mg, metoprolol 50 mg, metformin 1000 mg, Mucinex every 12 hours, Levemir 50 units, NovoLog 50 units, Advair, Spiriva, albuterol nebulizer, Sarah 180, daily vitamin, fish oil, potassium, Levemir, Ecotrin. PAST SURGERY: Triple bypass, angioplasty, several stents. FAMILY HISTORY: COPD and sleep apnea in family. Brother, heart and diabetes. The patient is on oxygen at 3 liters and has COPD and sleep apnea. REVIEW OF SYSTEMS: HEAD: Denies headache, dizziness, fainting. EYES, EARS, NOSE AND THROAT: Denies diplopia, tinnitus or sore throat. RESPIRATORY: Denies asthma, TB, cough, congestion. History of lung cancer and COPD, had five treatments of radiation in [place]. HEART: History of heart problems, hypertension. GASTROINTESTINAL: Appetite off and on. Denies blood in the stools, diarrhea. Admits to constipation. GENITOURINARY: Denies blood, pain or frequency. PHYSICAL EXAMINATION: GENERAL: The patient is a white male who is on oxygen, in no acute respiratory distress at rest. VITAL SIGNS: Pulse 64, blood pressure 90/60, weight 295. EARS: No drainage. EYES: No conjunctivitis or icterus. Throat not inflamed. NECK: Thyroid not enlarged. No abnormal cervical lymphadenopathy noted. HEART: Regular rate and rhythm. LUNGS: Decreased sounds. ABDOMEN: Soft. Liver and spleen nonpalpable. The patient able to have surgery on the local. The patient not to be put to sleep. 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
== END 2018-07-31 08:47 | disposition home or self-care (01) ==
LOC: SDC 05:55
PROVIDERS: ATTEND Podiatrist Foot Surgery
DX: E11.69 Type 2 diabetes mellitus with other specified complication (principal); M86.9 Osteomyelitis, unspecified; M20.41 Other hammer toe(s) (acquired), right foot; E11.40 Type 2 diabetes mellitus with diabetic neuropathy, unspecified; I11.0 Hypertensive heart disease with heart failure; I50.9 Heart failure, unspecified; I25.10 Atherosclerotic heart disease of native coronary artery without angina pectoris; G47.33 Obstructive sleep apnea (adult) (pediatric); J44.9 Chronic obstructive pulmonary disease, unspecified; K21.9 Gastro-esophageal reflux disease without esophagitis; Z95.1 Presence of aortocoronary bypass graft; Z79.4 Long term (current) use of insulin; Z79.82 Long term (current) use of aspirin; Z79.899 Other long term (current) drug therapy
CPT/HCPCS: 82962; 87081

== ENCOUNTER → 2018-09-19 | Outpatient (CLI) | payer MEDICARE ==
[~2018-09-19] MED LIST changes: -BUME2TAB3 PO; +BUME2TAB7 PO; +HOLD METFORMIN - RECEIVED CONTRAST 20 ML VIAL IV SCH; +IOHEXOL 350 MG/ML 100 ML (OMNIPAQUE 350) VIAL IV ONE; +NS 100 ML (IVPB) BAG IV ONE
[2018-09-19 07:33] LABS: CREATININE SERUM 1.23 MG/DL (0.60-1.30)
--- NOTE | 2018-09-19 11:25 | Diagnostic Imaging Report ---
PROCEDURE: CT chest with contrast only. TECHNIQUE: Multiple contiguous axial images were obtained through the chest after administration of intravenous contrast. Auto Exposure Controls were utilized during the CT exam to meet ALARA standards for radiation dose reduction. INDICATION: Lung mass. COMPARISON: 06/14/2018. FINDINGS: There are changes of median sternotomy and CABG. No significant pericardial or pleural fluid is detected. There is no axillary lymphadenopathy. There is a spiculated mass in the right upper lobe measuring approximately 5.2 cm AP x 4.8 cm transverse. This compares with approximately 4.2 x 4.9 cm on the prior exam. The mass appears to be more solid on today's study with less air bronchograms present. The remainder of the lung sandoval is without evidence of a discrete mass. There is some infiltrate or atelectasis in the posterior aspects of the bilateral lower lobes, left greater. Small lymph nodes in the mediastinum and hilar regions are noted bilaterally. No pathologically enlarged lymph nodes are present. The upper abdomen is unremarkable. IMPRESSION: Spiculated right upper lobe mass. The mass appears to be more solid and masslike when compared with the prior CT from 06/14/2018. No new parenchymal abnormality is identified. The previously noted bibasilar parenchymal infiltrates or atelectasis are stable. No definite thoracic lymphadenopathy is identified. Dictated by: Dictated on workstation # [id number]
== END ==
LOC: RAD 06:49
PROVIDERS: ATTEND Nurse Practitioner Family
DX: J96.20 Acute and chronic respiratory failure, unspecified whether with hypoxia or hypercapnia (principal); G47.33 Obstructive sleep apnea (adult) (pediatric); C80.1 Malignant (primary) neoplasm, unspecified; J84.9 Interstitial pulmonary disease, unspecified; J30.9 Allergic rhinitis, unspecified; J44.9 Chronic obstructive pulmonary disease, unspecified; Z87.891 Personal history of nicotine dependence; Z95.1 Presence of aortocoronary bypass graft; Z98.890 Other specified postprocedural states
CPT/HCPCS: 36415; 71260; 82565; 84520

== ENCOUNTER 2018-09-28 06:43 | Outpatient (CLI) | payer MEDICARE ==
[2018-09-28] VITALS (14 sets, daily range): BP systolic 115–150; BP diastolic 66–90
[~2018-09-28] VITALS: Ht 188 cm; Wt 149.9 kg
[~2018-09-28 06:43] MED LIST changes: -HOLD METFORMIN - RECEIVED CONTRAST 20 ML VIAL IV SCH; -IOHEXOL 350 MG/ML 100 ML (OMNIPAQUE 350) VIAL IV ONE; -NS 100 ML (IVPB) BAG IV ONE
[2018-09-28 07:44] LABS: HEMOGLOBIN 11.5 G/DL (13.3-17.7); WHITE BLOOD COUNT 2.7 10^3/uL (4.3-11.0)
[2018-09-28 08:07] LABS: PROTHROMBIN TIME PATIENT 13.9 SEC (12.2-14.7)
[2018-09-28] MEDS ORDERED: NS IV 1000 ML 1,000 ML IV STA (08:07)
[2018-09-28] MEDS ORDERED: LIDOCAINE 1% INJ 20 ML 20 ML VIAL INJ ONE (08:15)
[2018-09-28] MEDS ORDERED: MIDAZOLAM 2 MG/2 ML (VERSED) VIAL IVP ONE (08:15)
[2018-09-28] MEDS ORDERED: fentaNYL INJECTION 100 MCG/2 ML AMP IVP ONE (08:15)
[2018-09-28] MEDS ORDERED: HYDROcodone/APAP 5 MG/325 MG (LORTAB) TAB PO PRN (10:15)
--- NOTE | 2018-09-28 10:24 | Pre-Op Note & Conscious Sedat ---
Pre-Operative Progress Note H&P Reviewed The H&P was reviewed, patient examined and no changes noted. Date H&P Reviewed: Sep 28, 2018 Time H&P Reviewed: 08:00 Pre-Op Diagnosis: Lung mass Conscious Sedation Pre-Proced Time 08:00 ASA Score 2 For ASA 3 and 4: Consider anesthesia and medical clearance. Also, for patients with a history of failed moderate sedation consider anesthesia. Airway Lungs Heart ASA score ASA 1: a normal healthy patient ASA 2: a patient with a mild systemic disease (mid diabetes, controlled hypertension, obesity ASA 3: a patient with a severe systemic disease that limits activity (angina, COPD, prior Myocardial infarction) ASA 4: a patient with an incapacitating disease that is a constant threat to life (CHF, renal failure) ASA 5: a moribund patient not expected to survive 24 hrs. (ruptured aneurysm) ASA 6: a declared brain- patient whose organs are being harvested. For emergent operations, add the letter E after the classification Mallampati Classification Grade 2 Sedation Plan Analgesia, Amnesia, Plan communicated to team members, Discussed options with patient/fam, Discussed risks with patient/fam The patient is an appropriate candidate to undergo the planned procedure, sedation, and anesthesia. The patient immediately re-assessed prior to indication. JAN RAE MD Sep 28, 2018 10:24
--- NOTE | 2018-09-28 14:30 | Diagnostic Imaging Report ---
Indication: Right lung mass. The patient presents for CT-guided biopsy. Patient brought to the CT suite placed on table in supine position. Axial imaging through the chest was performed to evaluate appropriate entry site. The procedure was performed utilizing conscious sedation with radiology nursing and constant patient monitoring. Patient was administered total of 50 mcg of fentanyl intravenously and 1 mg of Versed intravenously. Total procedure time is 15 minutes. Right chest was prepped and draped in the usual sterile fashion. Small amount of 1% lidocaine was utilized for local anesthesia. 20-gauge coaxial Temno needle was advanced placed with its tip along the margin of the mass in the right upper lobe. Multiple core biopsies were obtained. The needle was then advanced more centrally within the mass and additional core biopsies were obtained. A small blood patch was injected during needle removal. Hemostasis was obtained using manual compression. Followup imaging demonstrates trace right-sided pneumothorax. Repeat chest x-ray in 2 hours will be performed. Patient tolerated the procedure well. Impression: Successful CT-guided right upper lobe lung mass biopsy utilizing conscious sedation. Pathology results are currently pending. Dictated by: Dictated on workstation # [id number]
--- NOTE | 2018-09-28 17:43 | Diagnostic Imaging Report ---
INDICATION: Right lung mass, status post biopsy. TIME OF EXAM: 11:23 a.m. Correlation is made with prior study 05/18/2018. FINDINGS: Expiration radiograph of the chest shows a small right apical pneumothorax, less than 10%. This measures to a thickness of approximately 2 cm in the apex. Right upper lobe mass is seen. IMPRESSION: Small right apical pneumothorax, status post lung biopsy. Dictated by: Dictated on workstation # [id number]
== END 2018-09-28 13:13 | disposition home or self-care (01) ==
LOC: SDC 06:43
PROVIDERS: ATTEND Internal Medicine Hematology & Oncology
DX: J93.9 Pneumothorax, unspecified (principal); C80.1 Malignant (primary) neoplasm, unspecified; Z98.890 Other specified postprocedural states
CPT/HCPCS: 36415; 71045; 77012; 82962; 85027; 85610; 85730; 99156

== ENCOUNTER 2018-10-09 09:11 | Outpatient (RCR) | payer MEDICARE, OTHER ==
[2018-08-02 08:06] LABS: BASOPHILS # (AUTO) 0.1 10^3/uL (0.0-0.1); BASOPHILS % (AUTO) 1 % (0-10); EOSINOPHILS # (AUTO) 0.2 10^3/uL (0.0-0.3); EOSINOPHILS % (AUTO) 4 % (0-10); HEMATOCRIT 40 % (40-54); HEMOGLOBIN 13.3 G/DL (13.3-17.7); LYMPHOCYTES # (AUTO) 0.8 X 10^3 (1.0-4.0); LYMPHOCYTES % (AUTO) 13 % (12-44); MEAN CORPUSCULAR HEMOGLOBIN 27 PG (25-34); MEAN CORPUSCULAR HGB CONC 33 G/DL (32-36); MEAN CORPUSCULAR VOLUME 81 FL (80-99); MEAN PLATELET VOLUME 9.9 FL (7.4-10.4); MONOCYTES # (AUTO) 0.6 X 10^3 (0.0-1.0); MONOCYTES % (AUTO) 10 % (0-12); NEUTROPHILS # (AUTO) 4.6 X 10^3 (1.8-7.8); NEUTROPHILS % (AUTO) 73 % (42-75); PLATELET COUNT 107 10^3/uL (130-400); RED CELL DISTRIBUTION WIDTH 15.2 % (10.0-14.5); WHITE BLOOD COUNT 6.3 10^3/uL (4.3-11.0)
[2018-08-02 08:23] LABS: ALBUMIN 4.1 GM/DL (3.2-4.5); BILIRUBIN,TOTAL 0.7 MG/DL (0.1-1.0); CALCIUM 9.4 MG/DL (8.5-10.1); CREATININE SERUM 1.51 MG/DL (0.60-1.30); POTASSIUM 3.7 MMOL/L (3.6-5.0); TOTAL PROTEIN 6.7 GM/DL (6.4-8.2)
[2018-09-17 08:33] LABS: BASOPHILS % (AUTO) 1 % (0-10); EOSINOPHILS # (AUTO) 0.2 10^3/uL (0.0-0.3); EOSINOPHILS % (AUTO) 7 % (0-10); HEMATOCRIT 39 % (40-54); HEMOGLOBIN 12.4 G/DL (13.3-17.7); LYMPHOCYTES # (AUTO) 0.6 X 10^3 (1.0-4.0); LYMPHOCYTES % (AUTO) 18 % (12-44); MEAN CORPUSCULAR HEMOGLOBIN 26 PG (25-34); MEAN CORPUSCULAR HGB CONC 32 G/DL (32-36); MEAN CORPUSCULAR VOLUME 83 FL (80-99); MEAN PLATELET VOLUME 10.3 FL (7.4-10.4); MONOCYTES # (AUTO) 0.3 X 10^3 (0.0-1.0); MONOCYTES % (AUTO) 9 % (0-12); NEUTROPHILS # (AUTO) 2.1 X 10^3 (1.8-7.8); NEUTROPHILS % (AUTO) 65 % (42-75); PLATELET COUNT 109 10^3/uL (130-400); RED CELL DISTRIBUTION WIDTH 14.9 % (10.0-14.5); WHITE BLOOD COUNT 3.1 10^3/uL (4.3-11.0)
[2018-09-17 08:53] LABS: ALANINE AMINOTRANSFERASE 22 U/L (0-55); ALKALINE PHOSPHATASE 90 U/L (40-136); BILIRUBIN,TOTAL 0.4 MG/DL (0.1-1.0); BUN/CREATININE RATIO 12; CALCIUM 9.3 MG/DL (8.5-10.1); CARBON DIOXIDE 18 MMOL/L (21-32); CHLORIDE 106 MMOL/L (98-107); CREATININE SERUM 1.08 MG/DL (0.60-1.30); GFR ESTIMATED > 60; GLUCOSE 139 MG/DL (70-105); POTASSIUM 3.5 MMOL/L (3.6-5.0); SODIUM 139 MMOL/L (135-145); TOTAL PROTEIN 7.4 GM/DL (6.4-8.2)
== END 2018-10-31 | disposition home or self-care (01) ==
LOC: ONC 09:11
PROVIDERS: ATTEND Internal Medicine Hematology & Oncology
DX: C34.11 Malignant neoplasm of upper lobe, right bronchus or lung (principal); D61.818 Other pancytopenia; I25.10 Atherosclerotic heart disease of native coronary artery without angina pectoris; I10 Essential (primary) hypertension; E78.5 Hyperlipidemia, unspecified; E11.9 Type 2 diabetes mellitus without complications; E03.9 Hypothyroidism, unspecified; J43.9 Emphysema, unspecified; G47.33 Obstructive sleep apnea (adult) (pediatric); K21.9 Gastro-esophageal reflux disease without esophagitis; K44.9 Diaphragmatic hernia without obstruction or gangrene; F10.20 Alcohol dependence, uncomplicated; K59.00 Constipation, unspecified; I25.2 Old myocardial infarction; E66.01 Morbid (severe) obesity due to excess calories; Z68.39 Body mass index [BMI] 39.0-39.9, adult; Z86.711 Personal history of pulmonary embolism; Z87.891 Personal history of nicotine dependence; Z79.82 Long term (current) use of aspirin; Z79.4 Long term (current) use of insulin; Z79.899 Other long term (current) drug therapy; Z95.1 Presence of aortocoronary bypass graft
CPT/HCPCS: 36415; 80053; 82728; 83540; 85025; 99213

== ENCOUNTER → 2018-12-18 | Outpatient (CLI) | payer MEDICARE, OTHER ==
[~2018-12-18] MED LIST changes: +HOLD METFORMIN - RECEIVED CONTRAST 20 ML VIAL IV SCH; +IOHEXOL 350 MG/ML 100 ML (OMNIPAQUE 350) VIAL IV ONE; +NS 100 ML (IVPB) BAG IV ONE
[2018-12-18 09:31] LABS: CREATININE SERUM 1.26 MG/DL (0.60-1.30)
--- NOTE | 2018-12-18 10:22 | Diagnostic Imaging Report ---
CT CHEST W TECHNIQUE: Multiple contiguous axial images were obtained through the chest with the use of intravenous contrast. All CT scans use one or more of the following dose optimizing techniques: automated exposure control, MA and/or KvP adjustment based on a patient size and exam type, or iterative reconstruction. INDICATION: Lung nodule, history of lung cancer. COMPARISON: CT used for lung biopsy on 09/28/[address] chest of 09/19/2018. FINDINGS: Lungs and airway: No endoluminal nodule within the trachea. The right upper lobe mass-like consolidation is similar in size measuring approximately 4.7 x 4.8 cm (previously 4.8 x 5.1 cm). No new pulmonary mass. Smooth interlobular septal thickening has worsened within the bilateral lung bases. Ground-glass opacities are also present in both lower lobes. No new pulmonary nodules. Scattered calcified pulmonary nodules are unchanged and due to old granulomatous infection. Pleura: No pleural effusion or pneumothorax. Heart and mediastinum: No supraclavicular or axillary lymphadenopathy. Numerous small mediastinal lymph nodes are unchanged since prior examination. No enlarging mediastinal, hilar, or juxtaphrenic lymph nodes. Stable cardiomegaly status post CABG. No pericardial effusion. Normal-caliber thoracic aorta. Upper abdomen: No concerning abnormality in the upper abdomen. Musculoskeletal: No lytic or blastic skeletal lesion in the chest. IMPRESSION: 1. Stable mass-like consolidation in the right upper lung, which was previously biopsied. Please correlate with biopsy report for pathologic diagnosis. 2. Numerous small mediastinal lymph nodes are stable since prior examination. 3. No features of disease progression. Dictated by: Dictated on workstation # [id number]
== END ==
LOC: RAD 08:53
PROVIDERS: ATTEND Nurse Practitioner Family
DX: J30.9 Allergic rhinitis, unspecified (principal); J96.20 Acute and chronic respiratory failure, unspecified whether with hypoxia or hypercapnia; J43.9 Emphysema, unspecified; J84.9 Interstitial pulmonary disease, unspecified; R91.8 Other nonspecific abnormal finding of lung field; R93.89 Abnormal findings on diagnostic imaging of other specified body structures; Z87.891 Personal history of nicotine dependence; Z85.118 Personal history of other malignant neoplasm of bronchus and lung
CPT/HCPCS: 36415; 71260; 82565; 83880; 84520

== ENCOUNTER → 2019-04-01 | Outpatient (CLI) | payer MEDICARE, OTHER ==
[~2019-04-01] VITALS: Ht 190 cm; Wt 154.0 kg
[~2019-04-01] MED LIST changes: +CATHETER FLUSH 10 ML SYR IV PRN; -HOLD METFORMIN - RECEIVED CONTRAST 20 ML VIAL IV SCH; -IOHEXOL 350 MG/ML 100 ML (OMNIPAQUE 350) VIAL IV ONE; -METO-370 PO; -METO-395 PO; +MTP100TCR PO; -NS 100 ML (IVPB) BAG IV ONE; +OMEP40CA27 PO; +REGADENOSON 0.4 MG/5 ML SYR (LEXISCAN) IV ONE
[2019-04-01 08:52] VITALS: BP 150/74
--- NOTE | 2019-04-01 14:36 | STRESS TEST ---
DATE OF SERVICE: 04/01/2019 LEXISCAN MYOVIEW STRESS TEST REPORT REFERRING PHYSICIAN: [facility]. Baseline heart rate is 75. Baseline blood pressure 150/74. Baseline EKG is sinus rhythm with no ischemic changes. In summary, the patient was injected with 10.4 mCi of technetium-99 Myoview and the resting images were obtained. Then, the patient received 0.4 mg of Lexiscan followed by 31.2 mCi of technetium-99 Myoview. Throughout the test, there were no EKG changes. The resting and stress images were reviewed and compared in the short axis, horizontal long axis, and vertical long axis views. Review of the images showed reversible ischemia involving the whole inferior wall and inferoapical segment, inferolateral wall, there is diaphragmatic attenuation affecting the quality of the study. CONCLUSION: 1. The patient tolerated Lexiscan well. 2. Reversible ischemia involving the mid to apical inferolateral and anterolateral wall, fixed defect at the inferoapical segment. SSS is 8, SDS 0, TID 1.05. 3. Normal left ventricular size with diffuse left ventricular hypokinesia, more pronounced at the inferior wall. Calculated ejection fraction 42%. Job ID: [id number] DocumentID: [id number] Dictated Date: 04/01/2019 12:19:55 Surveillance Systems Engineer Date: 04/01/2019 14:36:05 Dictated By: NHUNG GALAVIZ MD
== END ==
LOC: CARD 06:48
PROVIDERS: ATTEND Internal Medicine Cardiovascular Disease
DX: I25.10 Atherosclerotic heart disease of native coronary artery without angina pectoris (principal); J44.9 Chronic obstructive pulmonary disease, unspecified; E11.9 Type 2 diabetes mellitus without complications; K21.9 Gastro-esophageal reflux disease without esophagitis; K44.9 Diaphragmatic hernia without obstruction or gangrene; E78.5 Hyperlipidemia, unspecified; I10 Essential (primary) hypertension
CPT/HCPCS: 78452; 93017

== ENCOUNTER → 2019-04-08 | Outpatient (CLI) | payer MEDICARE ==
[~2019-04-08] MED LIST changes: -CATHETER FLUSH 10 ML SYR IV PRN; -REGADENOSON 0.4 MG/5 ML SYR (LEXISCAN) IV ONE
== END ==
LOC: CARD 11:56
PROVIDERS: ATTEND Internal Medicine Cardiovascular Disease
DX: I25.10 Atherosclerotic heart disease of native coronary artery without angina pectoris (principal); J44.9 Chronic obstructive pulmonary disease, unspecified; E11.9 Type 2 diabetes mellitus without complications; K21.9 Gastro-esophageal reflux disease without esophagitis; K44.9 Diaphragmatic hernia without obstruction or gangrene; E78.5 Hyperlipidemia, unspecified; I10 Essential (primary) hypertension
CPT/HCPCS: 93306

== ENCOUNTER 2019-06-11 10:25 | Inpatient (IN) | payer MEDICARE, OTHER ==
[~2019-06-11] VITALS: Ht 185.5 cm; Wt 153.6 kg
--- OUTSIDE RECORDS SUMMARY | 2019-06-11 10:52 | XMS REPORT ---
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 Name Role Phone ROCYK MORRIS Unavailable PROBLEMS Type Condition ICD9-CM Code LKL19-KM Code Onset Dates Condition S tatus SNOMED Code Problem COPD (chronic obstructive pulmonary disease) J44.9 Active 65898901 Problem Hypothyroid E03.9 Active 95231010 Problem CAD (coronary artery disease) I25.10 Active 72223917 Problem HTN (hypertension) I10 Active 3 9285096 Problem Environmental allergies Z91.09 Active 195660114 Problem Sleep apnea G47.30 Active 90598684 Problem 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 Active 22303751871485 Problem Neuropathy G62.9 Active 138103685 Problem Atherosclerotic heart diseas e of [place] coronary artery without angina pectoris I25.10 Active 032837059758454 Problem Panlobular emphysema J43.1 Active 9392062 Problem Type 2 diabetes mellitus with hyperglycemia E11.65 Active 691855252 Problem Simple chronic bronchitis J41.0 Acti ve 37541150 Problem Coronary atherosclerosis due to lipid rich plaque I25.83 Active 470507813005196 Problem Pure hypercholesterolemia E78.00 Acti ve 392297015 Problem Body mass index (BMI) of 40.0-44.9 in adult Z68.41 Active 764223883 Problem Edema, unspecified type R60.9 Active 861915335 Problem Type 2 diabetes mellitus with other diabetic oph thalmic complication E11.39 Active 16257106648084 Problem 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 Active 931 651642788 Problem 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 Active 815494551 Problem Type 2 diabetes mellitus with other circulatory compli cations E11.59 Active 36001105 Problem COPD with acute exacerbation J44.1 A ctive 956211217 ALLERGIES Substance Reaction Event Type Date Status Gabapentin anaphylaxis Drug Allergy Apr, Active Cozaar anaphylaxis Drug Allergy Apr, Active Benazepril HCl anaphylaxis Drug Allergy Apr, Active ENCOUNTERS Encounter Location Date Diagnosis [facility] [id number] [place] [phone] Jul, Bronchitis J40 and Morbid ob esity E66.01 [facility] [address] [facility] [id number] [place] [phone] Jul, [facility] [address] [address] June, [facility] [id number] [place] [address] May, [facility] [id number] [place] [phone] May, Hypothyroid E03.9 [facility] [address] [address] May, [facility] [address] [address] Apr, Chronic obstructive pulmonar y disease with acute exacerbation J44.1 [facility] [address] [address] Apr, Encounter for Medicare annua l wellness exam Z00.00 ; COPD (chronic obstructive pulmonary disease) J44.9 ; Type 2 diabetes mellitus with hyperglycemia E11.65 ; CAD (coronary artery disease) I25.10 and Morbid obesity E66.01 [facility] [id number] [place] [phone] Apr, [facility] [address] [id number] [address] [place] [id number] Apr, [facility] [id number] [place] [phone] Mar, COPD (chronic obstructive pu lmonary disease) J44.9 ; Type 2 diabetes mellitus with other circulatory complications E11.59 ; Body mass index (BMI) of 40.0-44.9 in adult Z68.41 ; Morbid obesity E66.01 and Pneumonia of both lower lobes due to infectious organism J18.1 [facility] [address] [id number] [address] [place] [phone] Mar, [facility] [address] [id number] [address] [place] [phone] Mar, [facility] [address] [id number] [address] [place] [phone] Feb, [facility] [address] [id number] [address] [place] [phone] Feb, [facility] [address] [id number] [address] [place] [phone] Jan, Bronchitis J40 [facility] [address] [facility] [id number] [address] [place] [phone] Dec, [facility] [address] [facility] [id number] [address] [place] [phone] Dec, [facility] [address] [facility] [id number] [address] [place] [phone] Dec, Acute URI J06.9 and BMI 40.0 -44.9, adult Z68.41 [facility] [address] [facility] [id number] [address] [place] [phone] Nov, Seborrheic keratosis L82.1 a nd Pneumonia of right upper lobe due to infectious organism J18.1 [facility] [address] [id number] [address] [place] [phone] Oct, [facility] [address] [id number] [address] [place] [phone] 19 Oct, 2017 [facility] [address] [facility] [id number] [address] [place] [phone] 13 Oct, 2017 [facility] [address] [facility] [id number] [address] [place] [phone] Oct, [facility] [id number] [address] [place] [phone] 05 Oct, 2017 COPD (chronic obstructive pu lmonary disease) J44.9 ; Hypothyroid E03.9 and HTN (hypertension) I10 [place] [address] [id number] [place] [address] Aug, COPD (chronic obstructive pu lmonary disease) J44.9 ; Hypothyroid E03.9 ; HTN (hypertension) I10 ; Type 2 diabetes mellitus with other circulatory complications E11.59 and BMI 45.0-49.9, adult Z68.42 [address] [address] Aug, [place] [id number] [place] [phone] Jul, [address] [address] [address] Jul, Alcoholism F10.20 ; Parkinso n's disease (tremor, stiffness, slow motion, unstable posture) G20 and COPD (chronic obstructive pulmonary disease) J44.9 [address] [address] [address] June, BMI 45.0-49.9, adult Z68.42 and Simple chronic bronchitis J41.0 [address] [address] June, [address] [id number] [place] [address] May, HTN (hypertension) I10 and T ype 2 diabetes mellitus with other circulatory complications E11.59 [place] [id number] [place] [phone] May, [address] [id number] [place] [phone] May, COPD exacerbation J44.1 [place] [id number] [place] [phone] Apr, Pure hypercholesterolemia E7 8.00 [facility] [address] [address] Apr, [facility] [id number] [place] [phone] 17 Mar, 2017 Cough R05 ; COPD with acute exacerbation J44.1 and BMI 45.0-49.9, adult Z68.42 [facility] [address] [id number] 13 Mar, 2017 [address] [address] Mar, [facility] [address] [address] Feb, [address] [address] [address] Feb, BMI 45.0-49.9, adult Z68.42 and Acute non-recurrent maxillary sinusitis J01.00 [facility] [address] [address] Feb, [facility] [address] [address] Feb, [address] [address] [address] Feb, GERD (gastroesophageal reflu x disease) K21.9 [facility] [address] [address] Jan, Panlobular emphysema J43.1 ; Type 2 diabetes mellitus with hyperglycemia E11.65 and alf 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 Z79.4 [facility] [id number] [place] [phone] Jan, [facility] [address] [address] Dec, Chronic obstructive pulmonar y disease with acute exacerbation J44.1 ; Cough R05 ; 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 ; Type 2 diabetes mellitus with other circulatory complications E11.59 ; 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 and BMI 45.0-49.9, adult Z68.42 [facility] [id number] [place] [address] Oct, [facility] [address] [facility] [id number] [address] [place] [phone] Sep, [facility] [address] [facility] [id number] [address] [place] [phone] Aug, [facility] [address] [facility] [id number] [address] [place] [phone] May, [facility] [id number] [place] [phone] May, [facility] [id number] [place] [phone] Apr, [facility] [address] [facility] [id number] [address] [place] [address] Apr, [facility] [id number] [place] [phone] Apr, [facility] [id number] [place] [address] Apr, Type 2 diabetes mellitus wit h other diabetic ophthalmic complication E11.39 ; GERD (gastroesophageal reflux disease) K21.9 ; HTN (hypertension) I10 ; Environmental allergies Z91.09 ; COPD (chronic obstructive pulmonary disease) J44.9 ; Sleep apnea G47.30 ; Hypothyroid E03.9 ; Neuropathy G62.9 ; Pure hypercholesterolemia E78.00 ; Atherosclerotic heart disease of [place] coronary artery without angina pectoris I25.10 ; Coronary atherosclerosis due to lipid rich plaque I25.83 and Edema, unspecified type R60.9 [facility] [place] [id number] Mar COPD (chronic obstructive pulmonary disease) J44.9 ; Alcoholism F10.20 and 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 [facility] [address] [place] [id number] Mar Open wound T14.8 [facility] [address] [facility] [id number] [address] [place] [address] Mar, Environmental allergies Z91. 09 ; Open wound, lower leg, right, initial encounter S81.801A ; GERD (gastroesophageal reflux disease) K21.9 ; Hypothyroid E03.9 ; Hypercholesterolemia E78.0 ; Sleep apnea G47.30 ; Neuropathy G62.9 ; Edema, unspecified type R60.9 ; 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 ; Coronary artery disease involving [place] coronary artery of [place] heart without angina pectoris I25.10 ; Type 2 diabetes mellitus with other diabetic ophthalmic complication E11.39 and COPD (chronic obstructive pulmonary disease) J44.9 [place] [id number] [place] [phone] Mar, [place] [id number] [place] [address] Mar, [address] [address] Mar, [facility] [address] [place] [id number] Mar Alcoholism F10.20 ; Type 2 diabetes mellitus with other diabetic ophthalmic complication E11.39 ; COPD (chronic obstructive pulmonary disease) J44.9 and Sleep apnea G47.30 [place] [id number] [facility] [id number] [address] [place] [phone] Mar, [place] [id number] [place] [phone] Mar, [place] [id number] [place] [phone] Feb, Type 2 diabetes mellitus wit h other diabetic ophthalmic complication E11.39 ; GERD (gastroesophageal reflux disease) K21.9 ; Hypothyroid E03.9 ; Sleep apnea G47.30 ; Parkinson's disease (tremor, stiffness, slow motion, unstable posture) G20 ; CAD (coronary artery disease) I25.10 ; Edema, unspecified type R60.9 ; COPD (chronic obstructive pulmonary disease) J44.9 and Neuropathy G62.[address] [address] Jan, HTN (hypertension) I10 [address] [address] Jan, COPD (chronic obstructive pu lmonary disease) J44.9 ; Hypothyroid E03.9 ; Environmental allergies Z91.09 ; Type 2 diabetes mellitus with other diabetic ophthalmic complication E11.39 ; Hypercholesterolemia E78.0 ; Sleep apnea G47.30 ; CAD (coronary artery disease) I25.10 ; HTN (hypertension) I10 ; GERD (gastroesophageal reflux disease) K21.9 ; Anemia D64.9 and Edema, unspecified type R60.9 [address] [address] [address] Dec, [address] [address] Dec, Type 2 diabetes mellitus wit h other diabetic ophthalmic complication E11.39 ; GERD (gastroesophageal reflux disease) K21.9 ; HTN (hypertension) I10 ; Hypothyroid E03.9 ; Environmental allergies Z91.09 ; Sleep apnea G47.30 ; CAD (coronary artery disease) I25.10 ; Hypercholesterolemia E78.0 and COPD (chronic obstructive pulmonary disease) J44.9 [address] [address] Oct, [address] [address] Aug, Type 2 diabetes mellitus wit h other diabetic ophthalmic complication E11.39 ; GERD (gastroesophageal reflux disease) K21.9 ; Hypothyroid E03.9 ; Environmental allergies Z91.09 ; CAD (coronary artery disease) I25.10 ; Hypercholesterolemia E78.0 ; COPD (chronic obstructive pulmonary disease) J44.9 and Sleep apnea G47.30 [address] [address] Jul, COPD (chronic obstructive pu lmonary disease) J44.9 [address] [id number] [place] [phone] June, [address] [address] [address] May, [address] [id number] [place] [address] Apr, COPD (chronic obstructive pu lmonary disease) J44.9 ; Sleep apnea G47.30 ; HTN (hypertension) I10 ; Hypothyroid E03.9 ; Environmental allergies Z91.09 ; CAD (coronary artery disease) I25.10 ; Hypercholesterolemia E78.0 and Type 2 diabetes mellitus with other diabetic ophthalmic complication E11.39 [address] [address] Apr, [address] [address] [address] Mar, [address] [place] [address] Mar, [address] [address] [address] Feb, [address] [address] [address] Feb, Type 2 diabetes mellitus wit h other diabetic ophthalmic complication E11.39 ; Hypothyroid E03.9 ; HTN (hypertension) I10 ; COPD (chronic obstructive pulmonary disease) J44.9 ; Sleep apnea G47.30 ; Hypercholesterolemia E78.0 ; Environmental allergies Z91.09 ; Diarrhea R19.7 and GERD (gastroesophageal reflux disease) K21.9 [address] [place] [address] [address] Feb, [facility] [address] [facility] [id number] [address] [place] [phone] Jan, [facility] [address] [facility] [id number] [address] [place] [phone] Jan, [facility] [address] [facility] [id number] [address] [place] [phone] Jan, [facility] [address] [facility] [id number] [address] [place] [address] Jan, Anemia D64.9 [facility] [address] [facility] [id number] [address] [place] [phone] Jan, [facility] [address] [facility] [id number] [address] [place] [phone] Jan, Type 2 diabetes mellitus wit h other diabetic ophthalmic complication E11.39 ; Hypothyroid E03.9 ; HTN (hypertension) I10 ; COPD (chronic obstructive pulmonary disease) J44.9 ; Sleep apnea G47.30 ; Hypercholesterolemia E78.0 ; CAD (coronary artery disease) I25.10 and Environmental allergies Z91.09 IMMUNIZATIONS No Known Immunizations SOCIAL HISTORY Never Assessed REASON FOR VISIT [facility] Activity Details Follow Up 1 Year Reason:[facility] Height 72.0 in 2018-04-20 Weight 317.7 lbs 2018-04-20 Temperature 96.5 degrees Fahrenheit 2018-04-20 Heart Rate 62 bpm 2018-04-20 Respiratory Rate 18 2018-04-20 Oximetry 98 % 2018-04-20 BMI 43.08 kg/m2 2018-04-20 Blood pressure systolic 138 mmHg 2018-04-20 Blood pressure diastolic 70 mmHg 2018-04-20 MEDICATIONS Medication Instructions Dosage Frequency Start Date End Date Duration S tatus Nitrostat 0.4 MG Active Fish Oil 8h Active Metoprolol Succinate 200 mg Orally Once a day 1 tablet 24h 30 days Active Loratadine 10 MG Orally Once a day 1 tablet 24h Active Levaquin 750 MG Orally Once a day 24h Active PredniSONE 10 MG Orally Once a day 1 tablet 24h 30 d ay(s) Active Atorvastatin Calcium 40 MG TAKE ONE TABLET BY MOUTH ONCE DAILY 30 Active Albuterol Sulfate (2.5 MG/3ML) 0.083% Inhalation every 4 hours prn 3 ml Active Omeprazole 40 mg TAKE ONE CAPSULE BY MOUTH ONCE DAILY 30 Active Bumex 2 MG Orally Every other day 1 tablet Active Potassium 99 MG Orally Once a day 1 tablet 24h Active Docusate Sodium 250 MG Orally twice a day prn constipation 1 cap lucía as needed Active Hydrocodone-Acetaminophen 7.5-325 MG Orally 3 times a day 1 tablet as needed 8h 05 Mar, 2018 21 days Active Doxycycline Hyclate 100 MG Orally 2 times a day 1 capsule 12h Jan, 10 day(s) Not-Taking Levothyroxine Sodium 150 MCG TAKE TWO (2 ) TABLETS BY MOUTH ONCE DAILY (MUST HAVE APPOINTMENT FOR REFILL) 30 Active Aspirin 81 MG Orally Once a day 1 tablet 24h Active Metformin HCl 1000 MG TAKE ONE TABLET BY MOUTH TWICE DAILY W ITH MEALS 30 Active Spiriva HandiHaler 18 MCG INHALE CONTENT S OF ONE CAPSULE BY MOUTH ONCE DAILY (TWO INHALATIONS PER ONE CAPSULE) 30 Active Multivitamin Adult - Act roger Levemir FlexTouch 100 UNIT/ML INJECT 50 UNITS SUBCUTANEOUS LY TWICE DAILY 30 Active Amlodipine Besylate 10 MG Orally Once a day 1 tablet 24h Active NovoLog Flexpen 100 UNIT/ML INJECT 50 UNITS SUBC UTANEOUSLY THREE TIMES DAILY 30 Active Sarah Allergy 180 MG Orally Once a day 1 tablet as needed 24h Active Ipratropium [place] 0.06 % Nasally Twice a day, prn rhinitis 2 sprays in each nostril Dec, 28 days Not-Taking Tessalon Perles 100 mg Orally Three times a day 1 capsule as needed 8h Dec, 7 days Not-Taking Guaifenesin 200 MG Orally every 4 hrs 1 tablet as needed 4h Active Acetaminophen 325 MG Orally every 4 hrs prn pain 1 capsule as needed Active Advair Diskus 250-50 MCG/DOSE INHALE ONE PUFF BY MOUTH TWICE KEI LY 30 Active Hydrochlorothiazide 25 MG TAKE ONE TABLET BY MOUTH ONCE DAILY 30 Active Oxygen 3 L by inhalation route continious 1 puff Apr, Active RESULTS No Results PROCEDURES Procedure Date Ordered Result Body Site ANNUAL JOHNATHAN RODRIGUEZT; [facility] INIT April 20, 2018 [facility] VISIT IPPE/AWV April 20, 2018 INSTRUCTIONS MEDICATIONS ADMINISTERED No Known Medications [...] Hospitalization History lung infection at [facility] 5 Hospitalization History double pneumonia 04/2015 Hospitalization History Double pneumonia 07/2015 Hospitalization History [facility] [place] allergic reaction 7 Hospitalization History [facility] spent 2 week s 03/2016 Hospitalization History [facility]- Pneumonia, COPD with Acute Exacerbation 05/19/2017 Hospitalization History surgery 12/20/2017 Hospitalization History [facility] Pneumonia 03/2018
--- OUTSIDE RECORDS SUMMARY | 2019-06-11 10:59 | XMS REPORT | Continuity of Care Document ---
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 RESPIRATORY FAILURE, UNSP W HYPOXI 04/10/2015 PAULETTE MCGRATH MD R Ot Z66 DO NOT RESUSCITATE 04/10/2015 PAULETTE MCGRATH MD Ot Z68. 41 BODY MASS INDEX (BMI) 40.0-44.9, ADULT 04/10/2015 PAULETTE MCGRATH MD Ot Z79. 4 FPC (CURRENT) USE OF INSULIN 04/10/2015 PAULETTE MCGRATH MD Ot Z95. 1 PRESENCE OF AORTOCORONARY BYPASS GRAFT 04/10/2015 PAULETTE MCGRATH MD Ot Z95. 5 PRESENCE OF CORONARY ANGIOPLASTY IMPLANT 04/10/2015 PAULETTE MCGRATH MD Ot Z99. 81 DEPENDENCE ON SUPPLEMENTAL OXYGEN 04/10/2015 ED IVORY, NALDO K Ot 250.00 04/10/2015 ED IVORY, NALDO K Ot 272.4 04/10/2015 ED IVORY, NALDO K Ot 397.0 04/10/2015 ED IVORY, NALDO K Ot 401.9 04/10/2015 ED IVORY, NALDO K Ot 414.01 04/10/2015 ED PA, NALDO K Ot 424.0 04/10/2015 ED PA, NALDO K Ot 433.10 04/10/2015 ED PA, NALDO K Ot 443.9 04/10/2015 ED PA, NALDO K Ot 729.5 04/10/2015 ED IVORY, NALDO K Ot V45.81 04/10/2015 ED IVORY, NALDO K Ot 250.00 04/10/2015 ED IVORY, NALDO K Ot 272.4 04/10/2015 ED IVORY, NALDO K Ot 401.9 04/10/2015 ED IVORY, NALDO K Ot 414.00 04/10/2015 NALDO ROMO Ot V45.81 04/10/2015 PB SEGOVIA [facility], [facility]LL [facility] CCDS Ot 272.4 04/10/2015 PB SEGOVIA [facility], [facility] CCDS Ot 414.00 04/10/2015 NALDO ROMO Ot 790.6 04/10/2015 POWERS DPM, FLORES P Ot 726.91 04/10/2015 POWERS DPM, FLORES P Ot V72.63 04/10/2015 POWERS DPM, FLORES P Ot V74.8 04/10/2015 Ot 785.1 04/10/2015 Ot 244.9 04/10/2015 Ot 250.00 04/10/2015 Ot 285.9 04/10/2015 Ot 414.00 04/10/2015 Ot V12.55 04/10/2015 Ot V45.81 04/10/2015 Ot V58.66 04/10/2015 Ot V58.69 04/10/2015 Ot 272.4 04/10/2015 Ot 414.00 04/10/2015 RAMILA SEGOVIA, PAULETTE R Ot 789. 03 04/10/2015 RAMILA SEGOVIA, PAULETTE R Ot 789. 03 04/10/2015 ANASTACIA SEGOVIA, NHUNG Nichols Ot 272. 4 04/10/2015 ANASTACIA SEGOVIA, NHUNG J Ot 401. 9 04/10/2015 ANASTACIA SEGOVIA, NHUNG J Ot 414. 00 04/10/2015 ANASTACIA SEGOVIA, NHUNG Nichols Ot 786. 50 04/10/2015 ANASTACIA SEGOVIA, NHUNG Nichols Ot 272. 4 04/10/2015 ANASTACIA SEGOVIA, NHUNG J Ot 401. 9 04/10/2015 ANASTACIA SEGOVIA, CAPRICEHAR J Ot 414. 00 04/10/2015 ANASTACIA SEGOVIA, NHUNG J Ot 786. 50 04/10/2015 VIRGILIO HARKINS DO Ot 414. 00 04/10/2015 VIRGILIO HARKINS DO Ot 496 04/10/2015 VIRGILIO HARKINS DO Ot 530. 81 04/10/2015 VIRGILIO HARKINS DO Ot 780. 57 04/10/2015 VIRGILIO HARKINS DO Ot 786. 09 04/10/2015 ANTHONY FATIMA APRN Ot 414.00 04/10/2015 ANTHONY FATIMA APRN Ot 496 04/10/2015 ANTHONY FATIMA COAT PADDER Ot 530.81 04/10/2015 ANTHONY FATIMA APRN Ot 780.57 04/10/2015 ANTHONY FATIMA APRN Ot 786.09 04/10/2015 ENMANUEL GUILLEN MD Ot D64. 9 04/10/2015 ENMANUEL GUILLEN MD Ot D69. 6 04/10/2015 ENMANUEL GUILLEN MD Ot R16. 1 04/10/2015 ENMANUEL GUILLEN MD Ot R91. 8 04/13/2015 PAULETTE MCGRATH MD Ot D64. 9 ANEMIA, UNSPECIFIED 04/13/2015 PAULETTE MCGRATH MD Ot E11. 9 TYPE 2 DIABETES MELLITUS WITHOUT COMPLIC 04/13/2015 PAULETTE MCGRATH MD Ot E66. 01 MORBID (SEVERE) OBESITY DUE TO EXCESS CA 04/13/2015 PAULETTE MCGRATH MD Ot E78. 5 HYPERLIPIDEMIA, UNSPECIFIED 04/13/2015 PAULETTE MCGRATH MD Ot G47. 33 OBSTRUCTIVE SLEEP APNEA (ADULT) (PEDIATR 04/13/2015 PAULETTE MCGRATH MD Ot I10 ESSENTIAL (PRIMARY) HYPERTENSION 04/13/2015 PAULETTE MCGRATH MD Ot I25. 10 ATHSCL HEART DISEASE OF [place] CORONARY 04/13/2015 PAULETTE MCGRATH MD Ot I50. 31 ACUTE DIASTOLIC (CONGESTIVE) HEART FAILU 04/13/2015 PAULETTE MCGRATH MD Ot J18. 9 PNEUMONIA, UNSPECIFIED ORGANISM 04/13/2015 PAULETTE MCGRATH MD Ot J44. 1 CHRONIC OBSTRUCTIVE PULMONARY DISEASE W 04/13/2015 PAULETTE MCGRATH MD Ot J98. 11 ATELECTASIS 04/13/2015 PAULETTE MCGRATH MD Ot Z68. 41 BODY MASS INDEX (BMI) 40.0-44.9, ADULT 04/13/2015 PAULETTE MCGRATH MD Ot Z79. 4 PROJECT MANAGEMENT INTERN (CURRENT) USE OF INSULIN 04/13/2015 PAULETTE MCGRATH MD Ot Z95. 1 PRESENCE OF AORTOCORONARY BYPASS GRAFT 04/24/2015 ENMANUEL GUILLEN MD Ot D64. 9 04/29/2015 ENMANUEL GUILLEN MD, Ot D64. 9 05/25/2015 ANTHONY FATIMA COAT PADDER Ot G47.30 05/25/2015 ANTHONY FATIMA COAT PADDER Ot J30.9 05/25/2015 ANTHONY FATIMA COAT PADDER Ot J44.9 05/25/2015 ANTHONY FATIMA COAT PADDER Ot Z87.891 05/28/2015 ANTHONY FATIMA COAT PADDER Ot J44.9 06/07/2015 MINDY SEGOVIA, [facility] Ot D64. 9 ANEMIA, UNSPECIFIED 06/11/2015 ANTHONY FATIMA COAT PADDER Ot G47.30 SLEEP APNEA, UNSPECIFIED 06/11/2015 ANTHONY FATIMA COAT PADDER Ot J30.9 ALLERGIC RHINITIS, UNSPECIFIED 06/11/2015 ANTHONY FATIMA COAT PADDER Ot J44.9 CHRONIC OBSTRUCTIVE PULMONARY DISEASE, U 06/11/2015 ANTHONY FATIMA COAT PADDER Ot Z87.891 PERSONAL HISTORY OF NICOTINE DEPENDENCE 06/17/2015 VIRGILIO HARKINS DO Ot R06. 00 DYSPNEA, UNSPECIFIED 06/17/2015 ANTHONY FATIMA COAT PADDER Ot J44.9 CHRONIC OBSTRUCTIVE PULMONARY DISEASE, U 06/17/2015 ANTHONY FATIMA COAT PADDER Ot G47.30 SLEEP APNEA, UNSPECIFIED 06/17/2015 ANTHONY FATIMA COAT PADDER Ot J30.9 ALLERGIC RHINITIS, UNSPECIFIED 06/17/2015 ANTHONY FATIMA COAT PADDER Ot J44.9 CHRONIC OBSTRUCTIVE PULMONARY DISEASE, U 06/17/2015 ANTHONY FATIMA COAT PADDER Ot Z87.891 PERSONAL HISTORY OF NICOTINE DEPENDENCE 06/18/2015 VIRGILIO HARKINS DO Ot R06. 00 DYSPNEA, UNSPECIFIED 06/18/2015 VIRGILIO HARKINS DO Ot G47. 30 SLEEP APNEA, UNSPECIFIED 06/18/2015 VIRGILIO HARKINS DO Ot J30. 9 ALLERGIC RHINITIS, UNSPECIFIED 06/18/2015 VIRGILIO HARKINS DO Ot J44. 9 CHRONIC OBSTRUCTIVE PULMONARY DISEASE, U 06/18/2015 VIRGILIO HARKINS DO Ot R06. 00 DYSPNEA, UNSPECIFIED 06/23/2015 NALDO ROMO Ot I65.23 OCCLUSION AND STENOSIS OF BILATERAL [place] 06/23/2015 AKUAANTHONY [place] APRN Ot J44.9 CHRONIC OBSTRUCTIVE PULMONARY DISEASE, U 07/07/2015 NALDO ROMO Ot I65.23 OCCLUSION AND STENOSIS OF [place]ILATERAL [place] 07/07/2015 VIRGILIO HARKINS DO Ot G47. 30 SLEEP APNEA, UNSPECIFIED 07/07/2015 VIRGILIO HARKINS DO Ot J30. 9 ALLERGIC RHINITIS, UNSPECIFIED 07/07/2015 VIRGILIO HARKINS DO Ot J44. 9 CHRONIC OBSTRUCTIVE PULMONARY DISEASE, U 07/07/2015 VIRGILIO HARKINS DO Ot R06. 00 DYSPNEA, UNSPECIFIED 07/15/2015 VIRGILIO HARKINS DO Ot J44. 9 CHRONIC OBSTRUCTIVE PULMONARY DISEASE, U 07/15/2015 VIRGILIO HARKINS DO Ot R91. 1 SOLITARY PULMONARY NODULE 07/15/2015 NALDO ROMO Ot I65.23 OCCLUSION AND STENOSIS OF [place] 07/15/2015 VIRGILIO HARKINS DO Ot G47. 30 SLEEP APNEA, UNSPECIFIED 07/15/2015 VIRGILIO HARKINS DO Ot J30. 9 ALLERGIC RHINITIS, UNSPECIFIED 07/15/2015 VIRGILIO HARKINS DO Ot J44. 9 CHRONIC OBSTRUCTIVE PULMONARY DISEASE, U 07/15/2015 VIRGILIO HARKINS DO Ot R06. 00 DYSPNEA, UNSPECIFIED 07/30/2015 Ot R91.1 [place] PULMONARY NODULE 07/30/2015 Ot R91.1 [place] PULMONARY NODULE 08/28/2015 Ot R91.1 [place] PULMONARY NODULE 09/04/2015 Ot R91.1 [place] PULMONARY NODULE 10/02/2015 ANTHONY FATIMA APRN Ot J44.9 CHRONIC OBSTRUCTIVE PULMONARY DISEASE, U 10/02/2015 ANTHONY FATIMA APRN Ot J84.9 INTERSTITIAL PULMONARY DISEASE, UNSPECIF 10/02/2015 ANTHONY FATIMA APRN Ot J96.20 ACUTE AND CHR RESP FAILURE, UNSP W HYPOX 10/02/2015 ANTHONY FATIMA APRN Ot R91.1 SOLITARY PULMONARY NODULE 10/23/2015 ANTHONY FATIMA APRN Ot J44.9 CHRONIC OBSTRUCTIVE PULMONARY DISEASE, U 10/23/2015 ANTHONY FATIMA APRN Ot J84.9 INTERSTITIAL PULMONARY DISEASE, UNSPECIF 10/23/2015 ANTHONY FATIMA APRN Ot J96.20 ACUTE AND CHR RESP FAILURE, UNSP W HYPOX 10/23/2015 ANTHONY FATIMA APRN Ot R91.1 SOLITARY PULMONARY NODULE 10/27/2015 ANTHONY FATIMA APRN Ot J44.9 CHRONIC OBSTRUCTIVE PULMONARY DISEASE, U 10/27/2015 ANTHONY FATIMA APRN Ot J84.9 INTERSTITIAL PULMONARY DISEASE, UNSPECIF 10/27/2015 ANTHONY FATIMA APRN Ot J96.20 ACUTE AND CHR RESP FAILURE, UNSP W HYPOX 10/27/2015 ANTHONY FATIMA APRN Ot R91.1 SOLITARY PULMONARY NODULE 11/26/2015 Ot 401.9 HYPE RTENSION NOS 11/26/2015 Ot 414.00 COR ON ATHEROSCLER NOS TYPE VESSEL, NATIV 11/26/2015 Ot 424.0 MITR AL VALVE DISORDER 11/26/2015 Ot 401.9 HYPE RTENSION NOS 11/26/2015 Ot 414.00 COR ON ATHEROSCLER NOS TYPE VESSEL, NATIV 11/26/2015 Ot 433.30 MUL T BILTRAL ARTERY OCCLUSION WO CEREBRA 11/26/2015 Ot 272.4 HYPE RLIPIDEMIA NEC/NOS 11/26/2015 Ot 401.9 HYPE RTENSION NOS 11/26/2015 Ot 414.01 COR ONARY ATHEROSCLEROSIS OF [place] CORON 11/26/2015 Ot 790.6 ABN BLOOD CHEMISTRY NEC 11/26/2015 Ot 443.9 THALIA PH VASCULAR DIS NOS 11/26/2015 Ot 414.01 COR ONARY ATHEROSCLEROSIS OF [place] CORON 11/26/[address] PAIN NOS 11/26/[address] PAIN NOS 11/26/2015 Ot 272.4 HYPE RLIPIDEMIA NEC/NOS 11/26/2015 Ot 401.9 HYPE RTENSION NOS 11/26/2015 Ot 414.00 COR ON ATHEROSCLER NOS TYPE VESSEL, NATIV 11/26/2015 Ot 250.00 MIKHAIL B WILFREDO WO COMPL, TYPE II OR UNSPEC TY 11/26/2015 Ot 401.9 HYPE RTENSION NOS 11/26/2015 Ot 413.9 YECENIA NA PECTORIS NEC/NOS 11/26/2015 Ot 414.01 COR ONARY ATHEROSCLEROSIS OF [place] CORON 11/26/2015 Ot 429.3 CARD IOMEGALY 11/26/2015 Ot 496 CHR AI RWAY OBSTRUCT NEC 11/26/[address] PAIN NOS 11/26/2015 Ot V72.63 PRE -PROCEDURAL LABORATORY EXAMINATION 11/26/2015 Ot V72.81 [id number] CARDIOVASCULAR 11/26/2015 Ot 244.9 HYPO THYROIDISM NOS 11/26/2015 Ot 250.00 MIKHAIL B WILFREDO WO COMPL, TYPE II OR UNSPEC TY 11/26/2015 Ot 272.4 HYPE RLIPIDEMIA NEC/NOS 11/26/2015 Ot 278.01 MOR BID OBESITY 11/26/2015 Ot 285.9 ANEM IA NOS 11/26/2015 Ot 401.9 HYPE RTENSION NOS 11/26/2015 Ot 412 OLD MY OCARDIAL INFARCT 11/26/2015 Ot 414.00 COR ON ATHEROSCLER NOS TYPE VESSEL, NATIV 11/26/2015 Ot 443.9 THALIA PH VASCULAR DIS NOS 11/26/2015 Ot 496 CHR AI RWAY OBSTRUCT NEC 11/26/2015 Ot 530.81 ESO PHAGEAL REFLUX 11/26/2015 Ot 553.3 DIAP HRAGMATIC HERNIA 11/26/2015 Ot 780.57 UNS PECIFIED SLEEP APNEA 11/26/2015 Ot V12.55 PER DARREN HISTORY OF PULMONARY EMBOLISM 11/26/2015 Ot V44.0 TRAC HEOSTOMY STATUS 11/26/2015 Ot 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 11/26/2015 Ot V46.2 SUPP LEMENTAL OXYGEN 11/26/2015 Ot V58.61 ANTICOAGULANTS,LT,CURRENT USE 11/26/2015 Ot V58.69 OTH MED,LT,CURRENT USE 11/26/2015 Ot 285.9 ANEM IA NOS 11/26/2015 Ot 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 11/26/2015 Ot V58.61 ANTICOAGULANTS,LT,CURRENT USE 11/26/2015 Ot V58.61 ANTICOAGULANTS,LT,CURRENT USE 11/26/2015 Ot V58.83 ENC OUNTER FOR THERAPEUTIC DRUG MONITORIN 11/26/2015 Ot 401.9 HYPE RTENSION NOS 11/26/2015 Ot 414.00 COR ON ATHEROSCLER NOS TYPE VESSEL, NATIV 11/26/2015 Ot 285.9 ANEM IA NOS 11/26/2015 Ot 415.19 OTH PULMON EMBOLISM/INFARCT 11/26/2015 Ot V58.61 ANTICOAGULANTS,LT,CURRENT USE 11/26/2015 Ot 429.3 CARD IOMEGALY 11/26/2015 Ot 511.0 PLEU RISY W/O EFFUS OR TB 11/26/2015 Ot 786.2 COUGH 11/26/2015 Ot 272.4 HYPE RLIPIDEMIA NEC/NOS 11/26/2015 Ot 414.00 COR ON ATHEROSCLER NOS TYPE VESSEL, NATIV 12/08/2015 Ot 401.9 HYPE RTENSION NOS 12/08/2015 Ot 414.00 COR ON ATHEROSCLER NOS TYPE VESSEL, NATIV 12/08/2015 Ot 424.0 MITR AL VALVE DISORDER 12/08/2015 Ot 401.9 HYPE RTENSION NOS 12/08/2015 Ot 414.00 COR ON ATHEROSCLER NOS TYPE VESSEL, NATIV 12/08/2015 Ot 433.30 MUL T BILTRAL ARTERY OCCLUSION WO CEREBRA 12/08/2015 Ot 272.4 HYPE RLIPIDEMIA NEC/NOS 12/08/2015 Ot 401.9 HYPE RTENSION NOS 12/08/2015 Ot 414.01 COR ONARY ATHEROSCLEROSIS OF [place] CORON 12/08/2015 Ot 790.6 ABN BLOOD CHEMISTRY NEC 12/08/2015 Ot 443.9 THALIA PH VASCULAR DIS NOS 12/08/2015 Ot 414.01 COR ONARY ATHEROSCLEROSIS OF [place] CORON 12/08/[address] PAIN NOS 12/08/[address] PAIN NOS 12/08/2015 Ot 272.4 HYPE RLIPIDEMIA NEC/NOS 12/08/2015 Ot 401.9 HYPE RTENSION NOS 12/08/2015 Ot 414.00 COR ON ATHEROSCLER NOS TYPE VESSEL, NATIV 12/08/2015 Ot 250.00 MIKHAIL B WILFREDO WO COMPL, TYPE II OR UNSPEC TY 12/08/2015 Ot 401.9 HYPE RTENSION NOS 12/08/2015 Ot 413.9 YECENIA NA PECTORIS NEC/NOS 12/08/2015 Ot 414.01 COR ONARY ATHEROSCLEROSIS OF [place] CORON 12/08/2015 Ot 429.3 CARD IOMEGALY 12/08/2015 Ot 496 CHR AI RWAY OBSTRUCT NEC 12/08/[address] PAIN NOS 12/08/2015 Ot V72.63 PRE -PROCEDURAL LABORATORY EXAMINATION 12/08/2015 Ot V72.81 [id number] CARDIOVASCULAR 12/08/2015 Ot 244.9 HYPO THYROIDISM NOS 12/08/2015 Ot 250.00 MIKHAIL B WILFREDO WO COMPL, TYPE II OR UNSPEC TY 12/08/2015 Ot 272.4 HYPE RLIPIDEMIA NEC/NOS 12/08/2015 Ot 278.01 MOR BID OBESITY 12/08/2015 Ot 285.9 ANEM IA NOS 12/08/2015 Ot 401.9 HYPE RTENSION NOS 12/08/2015 Ot 412 OLD MY OCARDIAL INFARCT 12/08/2015 Ot 414.00 COR ON ATHEROSCLER NOS TYPE VESSEL, NATIV 12/08/2015 Ot 443.9 THALIA PH VASCULAR DIS NOS 12/08/2015 Ot 496 CHR AI RWAY OBSTRUCT NEC 12/08/2015 Ot 530.81 ESO PHAGEAL REFLUX 12/08/2015 Ot 553.3 DIAP HRAGMATIC HERNIA 12/08/2015 Ot 780.57 UNS PECIFIED SLEEP APNEA 12/08/2015 Ot V12.55 PER DARREN HISTORY OF PULMONARY EMBOLISM 12/08/2015 Ot V44.0 TRAC HEOSTOMY STATUS 12/08/2015 Ot 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 12/08/2015 Ot V46.2 SUPP LEMENTAL OXYGEN 12/08/2015 Ot V58.61 ANTICOAGULANTS,LT,CURRENT USE 12/08/2015 Ot V58.69 OTH MED,LT,CURRENT USE 12/08/2015 Ot 285.9 ANEM IA NOS 12/08/2015 Ot 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 12/08/2015 Ot V58.61 ANTICOAGULANTS,LT,CURRENT USE 12/08/2015 Ot V58.61 ANTICOAGULANTS,LT,CURRENT USE 12/08/2015 Ot V58.83 ENC OUNTER FOR THERAPEUTIC DRUG MONITORIN 12/08/2015 Ot 401.9 HYPE RTENSION NOS 12/08/2015 Ot 414.00 COR ON ATHEROSCLER NOS TYPE VESSEL, NATIV 12/08/2015 Ot 285.9 ANEM IA NOS 12/08/2015 Ot 415.19 OTH PULMON EMBOLISM/INFARCT 12/08/2015 Ot V58.61 ANTICOAGULANTS,LT,CURRENT USE 12/08/2015 Ot 429.3 CARD IOMEGALY 12/08/2015 Ot 511.0 PLEU RISY W/O EFFUS OR TB 12/08/2015 Ot 786.2 COUGH 12/08/2015 Ot 272.4 HYPE RLIPIDEMIA NEC/NOS 12/08/2015 Ot 414.00 COR ON ATHEROSCLER NOS TYPE VESSEL, NATIV 12/09/2015 Ot 401.9 HYPE RTENSION NOS 12/09/2015 Ot 414.00 COR ON ATHEROSCLER NOS TYPE VESSEL, NATIV 12/09/2015 Ot 424.0 MITR AL VALVE DISORDER 12/09/2015 Ot 401.9 HYPE RTENSION NOS 12/09/2015 Ot 414.00 COR ON ATHEROSCLER NOS TYPE VESSEL, NATIV 12/09/2015 Ot 433.30 MUL T BILTRAL ARTERY OCCLUSION WO CEREBRA 12/09/2015 Ot 272.4 HYPE RLIPIDEMIA NEC/NOS 12/09/2015 Ot 401.9 HYPE RTENSION NOS 12/09/2015 Ot 414.01 COR ONARY ATHEROSCLEROSIS OF [place] CORON 12/09/2015 Ot 790.6 ABN BLOOD CHEMISTRY NEC 12/09/2015 Ot 443.9 THALIA PH VASCULAR DIS NOS 12/09/2015 Ot 414.01 COR ONARY ATHEROSCLEROSIS OF [place] CORON 12/09/[address] PAIN NOS 12/09/[address] PAIN NOS 12/09/2015 Ot 272.4 HYPE RLIPIDEMIA NEC/NOS 12/09/2015 Ot 401.9 HYPE RTENSION NOS 12/09/2015 Ot 414.00 COR ON ATHEROSCLER NOS TYPE VESSEL, NATIV 12/09/2015 Ot 250.00 MIKHAIL B WILFREDO WO COMPL, TYPE II OR UNSPEC TY 12/09/2015 Ot 401.9 HYPE RTENSION NOS 12/09/2015 Ot 413.9 YECENIA NA PECTORIS NEC/NOS 12/09/2015 Ot 414.01 COR ONARY ATHEROSCLEROSIS OF [place] CORON 12/09/2015 Ot 429.3 CARD IOMEGALY 12/09/2015 Ot 496 CHR AI RWAY OBSTRUCT NEC 12/09/[address] PAIN NOS 12/09/2015 Ot V72.63 PRE -PROCEDURAL LABORATORY EXAMINATION 12/09/2015 Ot V72.81 [id number] CARDIOVASCULAR 12/09/2015 Ot 244.9 HYPO THYROIDISM NOS 12/09/2015 Ot 250.00 MIKHAIL B WILFREDO WO COMPL, TYPE II OR UNSPEC TY 12/09/2015 Ot 272.4 HYPE RLIPIDEMIA NEC/NOS 12/09/2015 Ot 278.01 MOR BID OBESITY 12/09/2015 Ot 285.9 ANEM IA NOS 12/09/2015 Ot 401.9 HYPE RTENSION NOS 12/09/2015 Ot 412 OLD MY OCARDIAL INFARCT 12/09/2015 Ot 414.00 COR ON ATHEROSCLER NOS TYPE VESSEL, NATIV 12/09/2015 Ot 443.9 THALIA PH VASCULAR DIS NOS 12/09/2015 Ot 496 CHR AI RWAY OBSTRUCT NEC 12/09/2015 Ot 530.81 ESO PHAGEAL REFLUX 12/09/2015 Ot 553.3 DIAP HRAGMATIC HERNIA 12/09/2015 Ot 780.57 UNS PECIFIED SLEEP APNEA 12/09/2015 Ot V12.55 PER DARREN HISTORY OF PULMONARY EMBOLISM 12/09/2015 Ot V44.0 TRAC HEOSTOMY STATUS 12/09/2015 Ot 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 12/09/2015 Ot V46.2 SUPP LEMENTAL OXYGEN 12/09/2015 Ot V58.61 ANTICOAGULANTS,LT,CURRENT USE 12/09/2015 Ot V58.69 OTH MED,LT,CURRENT USE 12/09/2015 Ot 285.9 ANEM IA NOS 12/09/2015 Ot 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 12/09/2015 Ot V58.61 ANTICOAGULANTS,LT,CURRENT USE 12/09/2015 Ot V58.61 ANTICOAGULANTS,LT,CURRENT USE 12/09/2015 Ot V58.83 ENC OUNTER FOR THERAPEUTIC DRUG MONITORIN 12/09/2015 Ot 401.9 HYPE RTENSION NOS 12/09/2015 Ot 414.00 COR ON ATHEROSCLER NOS TYPE VESSEL, NATIV 12/09/2015 Ot 285.9 ANEM IA NOS 12/09/2015 Ot 415.19 OTH PULMON EMBOLISM/INFARCT 12/09/2015 Ot V58.61 ANTICOAGULANTS,LT,CURRENT USE 12/09/2015 Ot 429.3 CARD IOMEGALY 12/09/2015 Ot 511.0 PLEU RISY W/O EFFUS OR TB 12/09/2015 Ot 786.2 COUGH 12/09/2015 Ot 272.4 HYPE RLIPIDEMIA NEC/NOS 12/09/2015 Ot 414.00 COR ON ATHEROSCLER NOS TYPE VESSEL, NATIV 01/16/2016 NALDO ROMO Ot 250.00 DIAB WILFREDO WO COMPL, TYPE II OR UNSPEC TY 01/16/2016 NALDO ROMO Ot 272.4 HYPERLIPIDEMIA NEC/NOS 01/16/2016 NALDO ROMO Ot 397.0 TRICUSPID VALVE DISEASE 01/16/2016 NALDO ROMO Ot 401.9 HYPERTENSION NOS 01/16/2016 NALDO ROMO Ot 414.01 CORONARY ATHEROSCLEROSIS OF [place] CORON 01/16/2016 NALDO ROMO Ot 424.0 MITRAL VALVE DISORDER 01/16/2016 NALDO ROMO Ot 433.10 CAROTID ARTERY OCCLUSION W O CEREBRAL IN 01/16/2016 NALDO ROMO Ot 443.9 PERIPH VASCULAR DIS NOS 01/16/2016 NALDO ROMO Ot 729.5 PAIN IN LIMB 01/16/2016 NALDO ROMO Ot V45.81 AORTOCORONARY BYPASS 01/16/2016 NALDO ROMO Ot 250.00 DIAB WILFREDO WO COMPL, TYPE II OR UNSPEC TY 01/16/2016 NALDO ROMO Ot 272.4 HYPERLIPIDEMIA NEC/NOS 01/16/2016 NALDO ROMO Ot 401.9 HYPERTENSION NOS 01/16/2016 NALDO ORMO Ot 414.00 CORON ATHEROSCLER NOS TYPE VESSEL, NATIV 01/16/2016 NALDO ROMO Ot V45.81 AORTOCORONARY BYPASS 01/16/2016 PB SEGOVIA FACC, RUSSELL COTTON CCDS Ot 272.4 HYPERLIPIDEMIA NEC/NOS 01/16/2016 PB SEGOVIA FACC, RUSSELL FACP CCDS Ot 414.00 CORON ATHEROSCLER NOS TYPE VESSEL, NATIV 01/16/2016 NALDO ROMO Ot 790.6 ABN BLOOD CHEMISTRY NEC 01/16/2016 FLORES POWERS DPM Ot 726.91 EXOSTOSIS, SITE NOS 01/16/2016 FLORES POWERS DPM Ot V72.63 PRE-PROCEDURAL LABORATORY EXAMINATION 01/16/2016 FLORES POWERS DPM Ot V74.8 SCREEN-BACTERIAL DIS NEC 01/16/2016 Ot 785.1 PALP ITATIONS 01/16/2016 Ot 244.9 HYPO THYROIDISM NOS 01/16/2016 Ot 250.00 MIKHAIL B WILFREDO WO COMPL, TYPE II OR UNSPEC TY 01/16/2016 Ot 285.9 ANEM IA NOS 01/16/2016 Ot 414.00 COR ON ATHEROSCLER NOS TYPE VESSEL, NATIV 01/16/2016 Ot V12.55 PER DARREN HISTORY OF PULMONARY EMBOLISM 01/16/2016 Ot 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 01/16/2016 Ot V58.66 TREV G-TERM (CURRENT) USE OF ASPIRIN 01/16/2016 Ot V58.69 OTH MED,LT,CURRENT USE 01/16/2016 Ot 272.4 HYPE RLIPIDEMIA NEC/NOS 01/16/2016 Ot 414.00 COR ON ATHEROSCLER NOS TYPE VESSEL, NATIV 01/16/2016 RAMILA SEGOVIA, PAULETTE R Ot 789. 03 ABDOMINAL PAIN, RIGHT LOWER QUADRANT 01/16/2016 RAMILA SEGOVIA, PAULETTE R Ot 789. 03 ABDOMINAL PAIN, RIGHT LOWER QUADRANT 01/16/2016 ANASTACIA SEGOVIA, NHUNG Nichols Ot 272. 4 HYPERLIPIDEMIA NEC/NOS 01/16/2016 ANASTACIA SEGOVIA, NHUNG J Ot 401. 9 HYPERTENSION NOS 01/16/2016 ANASTACIA SEGOVIA, NHUNG J Ot 414. 00 CORON ATHEROSCLER NOS TYPE VESSEL, NATIV 01/16/2016 NHUNG GALAVIZ MD Ot 786. 50 CHEST PAIN NOS 01/16/2016 ANASTACIA SEGOVIA, NHUNG J Ot 272. 4 HYPERLIPIDEMIA NEC/NOS 01/16/2016 ANASTACIA SEGOVIA, NHUNG J Ot 401. 9 HYPERTENSION NOS 01/16/2016 ANASTACIA SEGOVIA, NHUNG Nichols Ot 414. 00 CORON ATHEROSCLER NOS TYPE VESSEL, NATIV 01/16/2016 NHUNG GALAVIZ MD J Ot 786. 50 CHEST PAIN NOS 01/16/2016 VIRGILIO HARKINS DO Ot 414. 00 CORON ATHEROSCLER NOS TYPE VESSEL, NATIV 01/16/2016 VIRGILIO HARKINS DO Ot 496 CHR AIRWAY OBSTRUCT NEC 01/16/2016 VIRGILIO HARKINS DO Ot 530. 81 ESOPHAGEAL REFLUX 01/16/2016 VIRGILIO HARKINS DO Ot 780. 57 UNSPECIFIED SLEEP APNEA 01/16/2016 VIRGILIO HARKINS DO Ot 786. 09 RESPIRATORY ABNORM NEC 01/16/2016 ANTHONY FATIMA APRN Ot 414.00 CORON ATHEROSCLER NOS TYPE VESSEL, NATIV 01/16/2016 ANTHONY FATIMA APRN Ot 496 CHR AIRWAY OBSTRUCT NEC 01/16/2016 ANTHONY FATIMA APRN Ot 530.81 ESOPHAGEAL REFLUX 01/16/2016 ANTHONY FATIMA APRN Ot 780.57 UNSPECIFIED SLEEP APNEA 01/16/2016 ANTHONY FATIMA APRN Ot 786.09 RESPIRATORY ABNORM NEC 01/16/2016 ENMANUEL GUILLEN MD Ot D69. 6 THROMBOCYTOPENIA, UNSPECIFIED 01/16/2016 ENMANUEL GUILLEN MD Ot R16. 1 SPLENOMEGALY, NOT ELSEWHERE CLASSIFIED 01/16/2016 ENMANUEL GUILLEN MD Ot R91. 8 OTHER NONSPECIFIC ABNORMAL FINDING OF [place] 01/16/2016 ANTHONY FATIMA APRN Ot G47.30 SLEEP APNEA, UNSPECIFIED 01/16/2016 ANTHONY FATIMA APRN Ot J30.9 ALLERGIC RHINITIS, UNSPECIFIED 01/16/2016 ANTHONY FATIMA APRN Ot J44.9 CHRONIC OBSTRUCTIVE PULMONARY DISEASE, U 01/16/2016 ANTHONY FATIMA APRN Ot Z87.891 PERSONAL HISTORY OF NICOTINE DEPENDENCE 01/16/2016 ANTHONY FATIMA APRN Ot J44.9 CHRONIC OBSTRUCTIVE PULMONARY DISEASE, U 01/16/2016 ENMANUEL GUILLEN MD Ot D64. 9 ANEMIA, UNSPECIFIED 01/16/2016 NALDO ROMO Ot I65.23 OCCLUSION AND STENOSIS OF BILATERAL [place] 01/16/2016 VIRGILIO HARKINS DO Ot G47. 30 SLEEP APNEA, UNSPECIFIED 01/16/2016 VIRGILIO HARKINS DO Ot J30. 9 ALLERGIC RHINITIS, UNSPECIFIED 01/16/2016 VIRGILIO HARKINS DO Ot J44. 9 CHRONIC OBSTRUCTIVE PULMONARY DISEASE, U 01/16/2016 VIRGILIO HARKINS DO Ot R06. 00 DYSPNEA, UNSPECIFIED 01/16/2016 VIRGILIO HARKINS DO Ot J44. 9 CHRONIC OBSTRUCTIVE PULMONARY DISEASE, U 01/16/2016 VIRGILIO HARKINS DO Ot R91. 1 SOLITARY PULMONARY NODULE 01/16/2016 Ot R91.1 DONOVAN TARY PULMONARY NODULE 01/16/2016 ANTHONY FATIMA APRN Ot J44.9 CHRONIC OBSTRUCTIVE PULMONARY DISEASE, U 01/16/2016 ANTHONY FATIMA APRN Ot J84.9 INTERSTITIAL PULMONARY DISEASE, UNSPECIF 01/16/2016 ANTHONY FATIMA APRN Ot J96.20 ACUTE AND CHR RESP FAILURE, UNSP W HYPOX 01/16/2016 ANTHONY FATIMA APRN Ot R91.1 SOLITARY PULMONARY NODULE 01/19/2016 GABRIEL CONWAY MD, Ot D64.9 ANEMIA, UNSPECIFIED 01/19/2016 GABRIEL CONWAY MD, Ot E08.4 0 DIABETES DUE TO UNDERLYING CONDITION W D 01/19/2016 GABRIEL CONWAY MD, Ot E11.9 TYPE 2 DIABETES MELLITUS WITHOUT COMPLIC 01/19/2016 GABRIEL CONWAY MD, Ot E66.2 MORBID (SEVERE) OBESITY WITH ALVEOLAR HY 01/19/2016 GABRIEL CONWAY MD, Ot E78.5 HYPERLIPIDEMIA, UNSPECIFIED 01/19/2016 GABRIEL CONWAY MD, Ot G47.3 3 OBSTRUCTIVE SLEEP APNEA (ADULT) (PEDIATR 01/19/2016 GABRIEL CONWAY MD, Ot I13.0 HYP HRT CHR [place] DIS W HRT FAIL AND ST 01/19/2016 GABRIEL CONWAY MD, Ot I25.1 0 ATHSCL HEART DISEASE OF [place] CORONARY 01/19/2016 GABRIEL CONWAY MD, Ot I25.2 OLD MYOCARDIAL INFARCTION 01/19/2016 GABRIEL CONWAY MD, Ot I50.3 3 ACUTE ON CHRONIC DIASTOLIC (CONGESTIVE) 01/19/2016 GABRIEL CONWAY MD, Ot I65.2 3 OCCLUSION AND STENOSIS OF BILATERAL [place] 01/19/2016 GABRIEL CONWAY MD, Ot I87.2 VENOUS INSUFFICIENCY (CHRONIC) (PERIPHER 01/19/2016 GABRIEL CONWAY MD, Ot J18.9 PNEUMONIA, UNSPECIFIED ORGANISM 01/19/2016 GABRIEL CONWAY MD, Ot J44.0 CHRONIC OBSTRUCTIVE PULMON DISEASE W ACU 01/19/2016 GABRIEL CONWAY MD, Ot J44.1 CHRONIC OBSTRUCTIVE PULMONARY DISEASE W 01/19/2016 GABRIEL CONWAY MD, Ot J96.0 0 ACUTE RESPIRATORY FAILURE, UNSP W HYPOXI 01/19/2016 GABRIEL CONWAY MD, Ot N18.9 CHRONIC KIDNEY DISEASE, UNSPECIFIED 01/19/2016 GABRIEL CONWAY MD, Ot Z68.4 2 BODY MASS INDEX (BMI) 45.0-49.9, ADULT 01/19/2016 GABRIEL CONWAY MD, Ot Z79.4 FPC (CURRENT) USE OF INSULIN 01/19/2016 GABRIEL CONWAY MD, Ot Z87.8 91 PERSONAL HISTORY OF NICOTINE DEPENDENCE 01/19/2016 GABRIEL CONWAY MD, Ot Z95.1 PRESENCE OF AORTOCORONARY BYPASS GRAFT 01/19/2016 GABRIEL CONWAY MD, Ot Z95.5 PRESENCE OF CORONARY ANGIOPLASTY IMPLANT 01/19/2016 GABRIEL CONWAY MD Ot D50.9 IRON DEFICIENCY ANEMIA, UNSPECIFIED 01/19/2016 GABRIEL CONWAY MD, Ot D63.8 ANEMIA IN OTHER CHRONIC DISEASES CLASSIF 01/19/2016 GABRIEL CONWAY MD, Ot D64.9 ANEMIA, UNSPECIFIED 01/19/2016 GABRIEL CONWAY MD, Ot E08.4 0 DIABETES DUE TO UNDERLYING CONDITION W D 01/19/2016 GABRIEL CONWAY MD, Ot E11.4 0 TYPE 2 DIABETES MELLITUS WITH DIABETIC N 01/19/2016 GABRIEL CONWAY MD, Ot E11.6 5 TYPE 2 DIABETES MELLITUS WITH HYPERGLYCE 01/19/2016 GABRIEL CONWAY MD, Ot E11.9 TYPE 2 DIABETES MELLITUS WITHOUT COMPLIC 01/19/2016 GABRIEL CONWAY MD, Ot E66.2 MORBID (SEVERE) OBESITY WITH ALVEOLAR HY 01/19/2016 GABRIEL CONWAY MD, Ot E78.5 HYPERLIPIDEMIA, UNSPECIFIED 01/19/2016 GABRIEL CONWAY MD, Ot E87.2 ACIDOSIS 01/19/2016 GABRIEL CONWAY MD, Ot G47.3 3 OBSTRUCTIVE SLEEP APNEA (ADULT) (PEDIATR 01/19/2016 GABRIEL CONWAY MD, Ot I13.0 HYP HRT CHR [place] DIS W HRT FAIL AND ST 01/19/2016 GABRIEL CONWAY MD, Ot I25.1 0 ATHSCL HEART DISEASE OF [place] CORONARY 01/19/2016 GABRIEL CONWAY MD, Ot I25.2 OLD MYOCARDIAL INFARCTION 01/19/2016 GABRIEL CONWAY MD, Ot I50.3 3 ACUTE ON CHRONIC DIASTOLIC (CONGESTIVE) 01/19/2016 GABRIEL CONWAY MD, Ot I65.2 3 OCCLUSION AND STENOSIS OF BILATERAL [place] 01/19/2016 GABRIEL CONWAY MD, Ot I87.2 VENOUS INSUFFICIENCY (CHRONIC) (PERIPHER 01/19/2016 GABRIEL CONWAY MD, Ot J18.9 PNEUMONIA, UNSPECIFIED ORGANISM 01/19/2016 GABRIEL CONWAY MD, Ot J44.0 CHRONIC OBSTRUCTIVE PULMON DISEASE W ACU 01/19/2016 GABRIEL CONWAY MD, Ot J44.1 CHRONIC OBSTRUCTIVE PULMONARY DISEASE W 01/19/2016 GABRIEL CONWAY MD, Ot J96.0 0 ACUTE RESPIRATORY FAILURE, UNSP W HYPOXI 01/19/2016 GABRIEL CONWAY MD, Ot J96.2 0 ACUTE AND CHR RESP FAILURE, UNSP W HYPOX 01/19/2016 GABRIEL CONWAY MD, Ot N18.9 CHRONIC KIDNEY DISEASE, UNSPECIFIED 01/19/2016 GABRIEL CONWAY MD, Ot Z68.4 2 BODY MASS INDEX (BMI) 45.0-49.9, ADULT 01/19/2016 GABRIEL CONWAY MD, Ot Z79.4 FPC (CURRENT) USE OF INSULIN 01/19/2016 GABRIEL CONWAY MD, Ot Z87.8 91 PERSONAL HISTORY OF NICOTINE DEPENDENCE 01/19/2016 GABRIEL CONWAY MD, Ot Z91.1 1 PATIENT'S NONCOMPLIANCE WITH DIETARY REG 01/19/2016 GABRIEL CONWAY MD Ot Z91.1 4 PATIENT'S OTHER NONCOMPLIANCE WITH MEDIC 01/19/2016 GABRIEL CONWAY MD, Ot Z95.1 PRESENCE OF AORTOCORONARY BYPASS GRAFT 01/19/2016 GABRIEL CONWAY MD, Ot Z95.5 PRESENCE OF CORONARY ANGIOPLASTY IMPLANT 03/21/2016 Ot 785.1 PALP ITATIONS 03/21/2016 Ot 244.9 HYPO THYROIDISM NOS 03/21/2016 Ot 250.00 MIKHAIL B WILFREDO WO COMPL, TYPE II OR UNSPEC TY 03/21/2016 Ot 285.9 ANEM IA NOS 03/21/2016 Ot 414.00 COR ON ATHEROSCLER NOS TYPE VESSEL, NATIV 03/21/2016 Ot V12.55 PER DARREN HISTORY OF PULMONARY EMBOLISM 03/21/2016 Ot 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 03/21/2016 Ot V58.66 TREV G-TERM (CURRENT) USE OF ASPIRIN 03/21/2016 Ot V58.69 OTH MED,LT,CURRENT USE 03/21/2016 VIRGILIO HARKINS DO Ot 414. 00 CORON ATHEROSCLER NOS TYPE VESSEL, NATIV 03/21/2016 VIRGILIO HARKINS DO Ot 496 CHR AIRWAY OBSTRUCT NEC 03/21/2016 VIRGILIO HARKINS DO Ot 530. 81 ESOPHAGEAL REFLUX 03/21/2016 VIRGILIO HARKINS DO Ot 780. 57 UNSPECIFIED SLEEP APNEA 03/21/2016 VIRGILIO HARKINS DO Ot 786. 09 RESPIRATORY ABNORM NEC 03/21/2016 MINDY SEGOVIA, ENMANUEL Ot D64. 9 ANEMIA, UNSPECIFIED 03/24/2016 NAT VELA DO Ot D64.9 ANEMIA, UNSPECIFIED 03/24/2016 DANE GONZALES NAT Ot E11.40 TYPE 2 DIABETES MELLITUS WITH DIABETIC N 03/24/2016 RICK VELA DOI Ot E11.62 2 TYPE 2 DIABETES MELLITUS WITH OTHER SKIN 03/24/2016 NAT VELA DO Ot E66.2 MORBID (SEVERE) OBESITY WITH ALVEOLAR HY 03/24/2016 RICK VELA DOI Ot E78.5 HYPERLIPIDEMIA, UNSPECIFIED 03/24/2016 DANE GONZALES NAT Ot E89.0 POSTPROCEDURAL HYPOTHYROIDISM 03/24/2016 RICK VELA DOI Ot F10.20 ALCOHOL DEPENDENCE, UNCOMPLICATED 03/24/2016 DANE GONZALES NAT Ot G20 PARKINSON'S DISEASE 03/24/2016 RICK VELA DOI Ot I10 ESSENTIAL (PRIMARY) HYPERTENSION 03/24/2016 NAT VELA DO Ot I25.10 ATHSCL HEART DISEASE OF [place] CORONARY 03/24/2016 RICK VELA DOI Ot I25.2 OLD MYOCARDIAL INFARCTION 03/24/2016 RICK VELA DOI Ot I27.2 OTHER SECONDARY PULMONARY HYPERTENSION 03/24/2016 RICK VELA DOI Ot I87.2 VENOUS INSUFFICIENCY (CHRONIC) (PERIPHER 03/24/2016 RICK VELA DOI Ot J44.9 CHRONIC OBSTRUCTIVE PULMONARY DISEASE, U 03/24/2016 NAT VELA DO Ot K21.9 GASTRO-ESOPHAGEAL REFLUX DISEASE WITHOUT 03/24/2016 NAT VELA DO Ot K70.30 ALCOHOLIC CIRRHOSIS OF LIVER WITHOUT ASC 03/24/2016 NAT VELA DO Ot K76.6 PORTAL HYPERTENSION 03/24/2016 NAT VELA DO Ot L97.52 9 NON-PRESSURE CHRONIC ULCER OTH PRT LEFT 03/24/2016 NAT VELA DO Ot N28.9 DISORDER OF KIDNEY AND URETER, UNSPECIFI 03/24/2016 NAT VELA DO Ot Z66 DO NOT RESUSCITATE 03/24/2016 NAT VELA DO Ot Z68.41 BODY MASS INDEX (BMI) 40.0-44.9, ADULT 03/24/2016 NAT VELA DO Ot Z79.4 PROJECT MANAGEMENT INTERN (CURRENT) USE OF INSULIN 03/24/2016 NAT VELA DO Ot Z86.73 PRSNL HX OF TIA (TIA), AND CEREB INFRC W 03/24/2016 NAT VELA DO Ot Z87.89 1 PERSONAL HISTORY OF NICOTINE DEPENDENCE 03/24/2016 NAT VELA DO Ot Z95.1 PRESENCE OF AORTOCORONARY BYPASS GRAFT 03/24/2016 NAT VELA DO Ot Z95.5 PRESENCE OF CORONARY ANGIOPLASTY IMPLANT 03/24/2016 NAT VELA DO Ot D64.9 ANEMIA, UNSPECIFIED 03/24/2016 NAT VELA DO Ot E11.40 TYPE 2 DIABETES MELLITUS WITH DIABETIC N 03/24/2016 NAT VELA DO Ot E11.62 2 TYPE 2 DIABETES MELLITUS WITH OTHER SKIN 03/24/2016 NAT VELA DO Ot E66.2 MORBID (SEVERE) OBESITY WITH ALVEOLAR HY 03/24/2016 NAT VELA DO Ot E78.5 HYPERLIPIDEMIA, UNSPECIFIED 03/24/2016 NAT VELA DO Ot E89.0 POSTPROCEDURAL HYPOTHYROIDISM 03/24/2016 NAT VELA DO Ot F10.20 ALCOHOL DEPENDENCE, UNCOMPLICATED 03/24/2016 NAT VELA DO Ot G20 PARKINSON'S DISEASE 03/24/2016 NAT VELA DO Ot I10 ESSENTIAL (PRIMARY) HYPERTENSION 03/24/2016 NAT VELA DO Ot I25.10 ATHSCL HEART DISEASE OF [place] CORONARY 03/24/2016 NAT VELA DO Ot I25.2 OLD MYOCARDIAL INFARCTION 03/24/2016 NAT VELA DO Ot I27.2 OTHER SECONDARY PULMONARY HYPERTENSION 03/24/2016 NAT VELA DO Ot I87.2 VENOUS INSUFFICIENCY (CHRONIC) (PERIPHER 03/24/2016 NAT VELA DO Ot J44.9 CHRONIC OBSTRUCTIVE PULMONARY DISEASE, U 03/24/2016 NAT VELA DO Ot K21.9 GASTRO-ESOPHAGEAL REFLUX DISEASE WITHOUT 03/24/2016 NAT VELA DO Ot K70.30 ALCOHOLIC CIRRHOSIS OF LIVER WITHOUT ASC 03/24/2016 NAT VELA DO Ot K76.6 PORTAL HYPERTENSION 03/24/2016 NAT VELA DO Ot L97.52 9 NON-PRESSURE CHRONIC ULCER OTH PRT LEFT 03/24/2016 NAT VELA DO Ot N28.9 DISORDER OF KIDNEY AND URETER, UNSPECIFI 03/24/2016 NAT VELA DO Ot Z66 DO NOT RESUSCITATE 03/24/2016 NAT VELA DO Ot Z68.41 BODY MASS INDEX (BMI) 40.0-44.9, ADULT 03/24/2016 RICK VELA DOI Ot Z79.4 PROJECT MANAGEMENT INTERN (CURRENT) USE OF INSULIN 03/24/2016 NAT VELA DO Ot Z86.73 PRSNL HX OF TIA (TIA), AND CEREB INFRC W 03/24/2016 NAT VELA DO Ot Z87.89 1 PERSONAL HISTORY OF NICOTINE DEPENDENCE 03/24/2016 NAT VELA DO Ot Z95.1 PRESENCE OF AORTOCORONARY BYPASS GRAFT 03/24/2016 NAT VELA DO Ot Z95.5 PRESENCE OF CORONARY ANGIOPLASTY IMPLANT 03/25/2016 NAT VELA DO Ot D64.9 ANEMIA, UNSPECIFIED 03/25/2016 NAT VELA DO Ot E11.40 TYPE 2 DIABETES MELLITUS WITH DIABETIC N 03/25/2016 RICK VELA DOI Ot E11.62 2 TYPE 2 DIABETES MELLITUS WITH OTHER SKIN 03/25/2016 RICK VELA DOI Ot E66.2 MORBID (SEVERE) OBESITY WITH ALVEOLAR HY 03/25/2016 RICK VELA DOI Ot E78.5 HYPERLIPIDEMIA, UNSPECIFIED 03/25/2016 DANE GONZALES NAT Ot E89.0 POSTPROCEDURAL HYPOTHYROIDISM 03/25/2016 RICK VELA DOI Ot F10.20 ALCOHOL DEPENDENCE, UNCOMPLICATED 03/25/2016 DANE GONZALES NAT Ot G20 PARKINSON'S DISEASE 03/25/2016 DANE GONZALES NAT Ot I10 ESSENTIAL (PRIMARY) HYPERTENSION 03/25/2016 DANE GONZALES NAT Ot I25.10 ATHSCL HEART DISEASE OF [place] CORONARY 03/25/2016 RICK VELA DOI Ot I25.2 OLD MYOCARDIAL INFARCTION 03/25/2016 RICK VELA DOI Ot I27.2 OTHER SECONDARY PULMONARY HYPERTENSION 03/25/2016 DANE GONZALES NAT Ot I87.2 VENOUS INSUFFICIENCY (CHRONIC) (PERIPHER 03/25/2016 RICK VELA DOI Ot J44.9 CHRONIC OBSTRUCTIVE PULMONARY DISEASE, U 03/25/2016 RICK VELA DOI Ot K21.9 GASTRO-ESOPHAGEAL REFLUX DISEASE WITHOUT 03/25/2016 NAT VELA DO Ot K70.30 ALCOHOLIC CIRRHOSIS OF LIVER WITHOUT ASC 03/25/2016 NAT VELA DO Ot K76.6 PORTAL HYPERTENSION 03/25/2016 NAT VELA DO Ot L97.52 9 NON-PRESSURE CHRONIC ULCER OTH PRT LEFT 03/25/2016 NAT VELA DO Ot N28.9 DISORDER OF KIDNEY AND URETER, UNSPECIFI 03/25/2016 NAT VELA DO Ot Z66 DO NOT RESUSCITATE 03/25/2016 NAT VELA DO Ot Z68.41 BODY MASS INDEX (BMI) 40.0-44.9, ADULT 03/25/2016 NAT VELA DO Ot Z79.4 FPC (CURRENT) USE OF INSULIN 03/25/2016 NAT VELA DO Ot Z86.73 PRSNL HX OF TIA (TIA), AND CEREB INFRC W 03/25/2016 NAT VELA DO Ot Z87.89 1 PERSONAL HISTORY OF NICOTINE DEPENDENCE 03/25/2016 NAT VELA DO Ot Z95.1 PRESENCE OF AORTOCORONARY BYPASS GRAFT 03/25/2016 NAT VELA DO Ot Z95.5 PRESENCE OF CORONARY ANGIOPLASTY IMPLANT 03/25/2016 NAT VELA DO Ot D64.9 ANEMIA, UNSPECIFIED 03/25/2016 NAT VELA DO Ot E11.40 TYPE 2 DIABETES MELLITUS WITH DIABETIC N 03/25/2016 NAT VELA DO Ot E11.62 2 TYPE 2 DIABETES MELLITUS WITH OTHER SKIN 03/25/2016 ANT VELA DO Ot E66.2 MORBID (SEVERE) OBESITY WITH ALVEOLAR HY 03/25/2016 NAT VELA DO Ot E78.5 HYPERLIPIDEMIA, UNSPECIFIED 03/25/2016 NAT VELA DO Ot E89.0 POSTPROCEDURAL HYPOTHYROIDISM 03/25/2016 NAT VELA DO Ot F10.20 ALCOHOL DEPENDENCE, UNCOMPLICATED 03/25/2016 NAT VELA DO Ot G20 PARKINSON'S DISEASE 03/25/2016 NAT VELA DO Ot I10 ESSENTIAL (PRIMARY) HYPERTENSION 03/25/2016 NAT VELA DO Ot I25.10 ATHSCL HEART DISEASE OF [place] CORONARY 03/25/2016 NAT VELA DO Ot I25.2 OLD MYOCARDIAL INFARCTION 03/25/2016 NAT VELA DO Ot I27.2 OTHER SECONDARY PULMONARY HYPERTENSION 03/25/2016 NAT VELA DO Ot I87.2 VENOUS INSUFFICIENCY (CHRONIC) (PERIPHER 03/25/2016 NAT VELA DO Ot J44.9 CHRONIC OBSTRUCTIVE PULMONARY DISEASE, U 03/25/2016 NAT VELA DO Ot K21.9 GASTRO-ESOPHAGEAL REFLUX DISEASE WITHOUT 03/25/2016 NAT VELA DO Ot K70.30 ALCOHOLIC CIRRHOSIS OF LIVER WITHOUT ASC 03/25/2016 NAT VELA DO Ot K76.6 PORTAL HYPERTENSION 03/25/2016 NAT VELA DO Ot L97.52 9 NON-PRESSURE CHRONIC ULCER OTH PRT LEFT 03/25/2016 NAT VELA DO Ot N28.9 DISORDER OF KIDNEY AND URETER, UNSPECIFI 03/25/2016 NAT VELA DO Ot R60.1 GENERALIZED EDEMA 03/25/2016 NAT VELA DO Ot Z66 DO NOT RESUSCITATE 03/25/2016 NAT VELA DO Ot Z68.41 BODY MASS INDEX (BMI) 40.0-44.9, ADULT 03/25/2016 NAT VELA DO Ot Z79.4 FPC (CURRENT) USE OF INSULIN 03/25/2016 NAT VELA DO Ot Z86.73 PRSNL HX OF TIA (TIA), AND CEREB INFRC W 03/25/2016 NAT VELA DO Ot Z87.89 1 PERSONAL HISTORY OF NICOTINE DEPENDENCE 03/25/2016 NAT VELA DO Ot Z95.1 PRESENCE OF AORTOCORONARY BYPASS GRAFT 03/25/2016 NAT VELA DO Ot Z95.5 PRESENCE OF CORONARY ANGIOPLASTY IMPLANT 08/08/2016 NALDO ROMO Ot 250.00 DIAB WILFREDO WO COMPL, TYPE II OR UNSPEC TY 08/08/2016 NALDO ROMO Ot 272.4 HYPERLIPIDEMIA NEC/NOS 08/08/2016 NALDO ROMO Ot 397.0 TRICUSPID VALVE DISEASE 08/08/2016 NALDO ROMO Ot 401.9 HYPERTENSION NOS 08/08/2016 NALDO ROMO Ot 414.01 CORONARY ATHEROSCLEROSIS OF [place] CORON 08/08/2016 NALDO ROMO Ot 424.0 MITRAL VALVE DISORDER 08/08/2016 NALDO ROMO Ot 433.10 CAROTID ARTERY OCCLUSION W O CEREBRAL IN 08/08/2016 NALDO ROMO Ot 443.9 PERIPH VASCULAR DIS NOS 08/08/2016 NALDO ROMO Ot 729.5 PAIN IN LIMB 08/08/2016 NALDO ROMO Ot V45.81 AORTOCORONARY BYPASS 08/08/2016 NALDO ROMO Ot 250.00 DIAB WILFREDO WO COMPL, TYPE II OR UNSPEC TY 08/08/2016 NALDO ROMO Ot 272.4 HYPERLIPIDEMIA NEC/NOS 08/08/2016 NALDO ROMO Ot 401.9 HYPERTENSION NOS 08/08/2016 NALDO ROMO Ot 414.00 CORON ATHEROSCLER NOS TYPE VESSEL, NATIV 08/08/2016 NALDO ROMO Ot V45.81 AORTOCORONARY BYPASS 08/08/2016 PB SEGOVIA FACC, ALI FACP CCDS Ot 272.4 HYPERLIPIDEMIA NEC/NOS 08/08/2016 PB SEGOVIA FACC, ALI FACP CCDS Ot 414.00 CORON ATHEROSCLER NOS TYPE VESSEL, NATIV 08/08/2016 NALDO ROMO Ot 790.6 ABN BLOOD CHEMISTRY NEC 08/08/2016 FLORES POWERS DPM Ot 726.91 EXOSTOSIS, SITE NOS 08/08/2016 FLORES POWERS DPM Ot V72.63 PRE-PROCEDURAL LABORATORY EXAMINATION 08/08/2016 FLORES POWERS DPM Ot V74.8 SCREEN-BACTERIAL DIS NEC 08/08/2016 Ot 785.1 PALP ITATIONS 08/08/2016 Ot 244.9 HYPO THYROIDISM NOS 08/08/2016 Ot 250.00 MIKHAIL B WILFREDO WO COMPL, TYPE II OR UNSPEC TY 08/08/2016 Ot 285.9 ANEM IA NOS 08/08/2016 Ot 414.00 COR ON ATHEROSCLER NOS TYPE VESSEL, NATIV 08/08/2016 Ot V12.55 PER DARREN HISTORY OF PULMONARY EMBOLISM 08/08/2016 Ot 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 08/08/2016 Ot V58.66 TREV G-TERM (CURRENT) USE OF ASPIRIN 08/08/2016 Ot V58.69 OTH MED,LT,CURRENT USE 08/08/2016 Ot 272.4 HYPE RLIPIDEMIA NEC/NOS 08/08/2016 Ot 414.00 COR ON ATHEROSCLER NOS TYPE VESSEL, NATIV 08/08/2016 RAMILA SEGOVIA, PAULETTE R Ot 789. 03 ABDOMINAL PAIN, RIGHT LOWER QUADRANT 08/08/2016 RAMILA SEGOVIA, PAULETTE R Ot 789. 03 ABDOMINAL PAIN, RIGHT LOWER QUADRANT 08/08/2016 ANASTACIA SEGOVIA, NHUNG Nichols Ot 272. 4 HYPERLIPIDEMIA NEC/NOS 08/08/2016 ANASTACIA SEGOVIA, NHUNG J Ot 401. 9 HYPERTENSION NOS 08/08/2016 ANASTACIA SEGOVIA, NHUNG Nichols Ot 414. 00 CORON ATHEROSCLER NOS TYPE VESSEL, NATIV 08/08/2016 NHUNG GALAVIZ MD Ot 786. 50 CHEST PAIN NOS 08/08/2016 NHUNG GALAVIZ MD Ot 272. 4 HYPERLIPIDEMIA NEC/NOS 08/08/2016 NHUNG GALAVIZ MD Ot 401. 9 HYPERTENSION NOS 08/08/2016 ANASTACIA SEGOVIA, NHUNG Nichols Ot 414. 00 CORON ATHEROSCLER NOS TYPE VESSEL, NATIV 08/08/2016 NHUNG AGLAVIZ MD Ot 786. 50 CHEST PAIN NOS 08/08/2016 VIRGILIO HARKINS DO Ot 414. 00 CORON ATHEROSCLER NOS TYPE VESSEL, NATIV 08/08/2016 VIRGILIO HARKINS DO Ot 496 CHR AIRWAY OBSTRUCT NEC 08/08/2016 VIRGILIO HARKINS DO Ot 530. 81 ESOPHAGEAL REFLUX 08/08/2016 VIRGILIO HARKINS DO Ot 780. 57 UNSPECIFIED SLEEP APNEA 08/08/2016 VIRGILIO HARKINS DO Ot 786. 09 RESPIRATORY ABNORM NEC 08/08/2016 ANTHONY FATIMA COAT PADDER Ot 414.00 CORON ATHEROSCLER NOS TYPE VESSEL, NATIV 08/08/2016 ANTHONY FATIMA COAT PADDER Ot 496 CHR AIRWAY OBSTRUCT NEC 08/08/2016 ANTHONY FATIMA COAT PADDER Ot 530.81 ESOPHAGEAL REFLUX 08/08/2016 ANTHONY FATIMA COAT PADDER Ot 780.57 UNSPECIFIED SLEEP APNEA 08/08/2016 ANTHONY FATIMA COAT PADDER Ot 786.09 RESPIRATORY ABNORM NEC 08/08/2016 MINDY SEGOVIA, ENMANUEL Ot D69. 6 THROMBOCYTOPENIA, UNSPECIFIED 08/08/2016 ENMANUEL GUILLEN MD Ot R16. 1 SPLENOMEGALY, NOT ELSEWHERE CLASSIFIED 08/08/2016 ENMANUEL GUILLEN MD Ot R91. 8 OTHER NONSPECIFIC ABNORMAL FINDING OF [place] 08/08/2016 ANTHONY FATIMA APRN Ot G47.30 SLEEP APNEA, UNSPECIFIED 08/08/2016 ANTHONY FATIMA APRN Ot J30.9 ALLERGIC RHINITIS, UNSPECIFIED 08/08/2016 ANTHONY FATIMA APRN Ot J44.9 CHRONIC OBSTRUCTIVE PULMONARY DISEASE, U 08/08/2016 ANTHONY FATIMA APRN Ot Z87.891 PERSONAL HISTORY OF NICOTINE DEPENDENCE 08/08/2016 ANTHONY FATIMA APRN Ot J44.9 CHRONIC OBSTRUCTIVE PULMONARY DISEASE, U 08/08/2016 EMNANUEL GUILLEN MD Ot D64. 9 ANEMIA, UNSPECIFIED 08/08/2016 NALDO ROMO Ot I65.23 OCCLUSION AND STENOSIS OF BILATERAL [place] 08/08/2016 VIRGILIO HARKINS DO Ot G47. 30 SLEEP APNEA, UNSPECIFIED 08/08/2016 VIRGILIO HARKINS DO Ot J30. 9 ALLERGIC RHINITIS, UNSPECIFIED 08/08/2016 VIRGILIO HARKINS DO Ot J44. 9 CHRONIC OBSTRUCTIVE PULMONARY DISEASE, U 08/08/2016 VIRGILIO HARKINS DO Ot R06. 00 DYSPNEA, UNSPECIFIED 08/08/2016 VIRGILIO HARKINS DO Ot J44. 9 CHRONIC OBSTRUCTIVE PULMONARY DISEASE, U 08/08/2016 VIRGILIO HARKINS DO Ot R91. 1 SOLITARY PULMONARY NODULE 08/08/2016 Ot R91.1 DONOVAN TARY PULMONARY NODULE 08/08/2016 ANTHONY FATIMA APRN Ot J44.9 CHRONIC OBSTRUCTIVE PULMONARY DISEASE, U 08/08/2016 ANTHONY FATIMA APRN Ot J84.9 INTERSTITIAL PULMONARY DISEASE, UNSPECIF 08/08/2016 ANTHONY FATIMA APRN Ot J96.20 ACUTE AND CHR RESP FAILURE, UNSP W HYPOX 08/08/2016 ANTHONY FATIMA APRN Ot R91.1 SOLITARY PULMONARY NODULE 08/11/2016 NALDO ROMO Ot G47.30 SLEEP APNEA, UNSPECIFIED 08/11/2016 NALDO ROMO Ot I10 ESSENTIAL (PRIMARY) HYPERTENSION 08/11/2016 NALDO ROMO Ot I25.10 ATHSCL HEART DISEASE OF [place] CORONARY 08/11/2016 NALDO ROMO Ot K21.9 GASTRO-ESOPHAGEAL REFLUX DISEASE WITHOUT 08/12/2016 NALDO ROMO Ot 250.00 DIAB WILFREDO WO COMPL, TYPE II OR UNSPEC TY 08/12/2016 NALDO ROMO Ot 272.4 HYPERLIPIDEMIA NEC/NOS 08/12/2016 NALDO ROMO Ot 397.0 TRICUSPID VALVE DISEASE 08/12/2016 NALDO ROMO Ot 401.9 HYPERTENSION NOS 08/12/2016 NALDO ROMO Ot 414.01 CORONARY ATHEROSCLEROSIS OF [place] CORON 08/12/2016 NALDO ROMO Ot 424.0 MITRAL VALVE DISORDER 08/12/2016 NALDO ROMO Ot 433.10 CAROTID ARTERY OCCLUSION W O CEREBRAL IN 08/12/2016 NALDO ROMO Ot 443.9 PERIPH VASCULAR DIS NOS 08/12/2016 NALDO ROMO Ot 729.5 PAIN IN LIMB 08/12/2016 NALDO ROMO Ot V45.81 AORTOCORONARY BYPASS 08/12/2016 NALDO ROMO Ot 250.00 DIAB WILFREDO WO COMPL, TYPE II OR UNSPEC TY 08/12/2016 NALDO ROMO Ot 272.4 HYPERLIPIDEMIA NEC/NOS 08/12/2016 NALDO ROMO Ot 401.9 HYPERTENSION NOS 08/12/2016 NALDO ROMO Ot 414.00 CORON ATHEROSCLER NOS TYPE VESSEL, NATIV 08/12/2016 NALDO ROMO Ot V45.81 AORTOCORONARY BYPASS 08/12/2016 PB SEGOVIA FACC, RUSSELL COTTON CCDS Ot 272.4 HYPERLIPIDEMIA NEC/NOS 08/12/2016 PB SEGOVIA FACC, RUSSELL COTTON CCDS Ot 414.00 CORON ATHEROSCLER NOS TYPE VESSEL, NATIV 08/12/2016 NALDO ROMO Ot 790.6 ABN BLOOD CHEMISTRY NEC 08/12/2016 FLORES POWERS DPM Ot 726.91 EXOSTOSIS, SITE NOS 08/12/2016 GIO WATERS, FLORES Vic Ot V72.63 PRE-PROCEDURAL LABORATORY EXAMINATION 08/12/2016 FLORES POWERS DPM Ot V74.8 SCREEN-BACTERIAL DIS NEC 08/12/2016 Ot 785.1 PALP ITATIONS 08/12/2016 Ot 244.9 HYPO THYROIDISM NOS 08/12/2016 Ot 250.00 MIKHAIL B WILFREDO WO COMPL, TYPE II OR UNSPEC TY 08/12/2016 Ot 285.9 ANEM IA NOS 08/12/2016 Ot 414.00 COR ON ATHEROSCLER NOS TYPE VESSEL, NATIV 08/12/2016 Ot V12.55 PER DARREN HISTORY OF PULMONARY EMBOLISM 08/12/2016 Ot 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 08/12/2016 Ot V58.66 TREV G-TERM (CURRENT) USE OF ASPIRIN 08/12/2016 Ot V58.69 OTH MED,LT,CURRENT USE 08/12/2016 Ot 272.4 HYPE RLIPIDEMIA NEC/NOS 08/12/2016 Ot 414.00 COR ON ATHEROSCLER NOS TYPE VESSEL, NATIV 08/12/2016 RAMILA SEGOVIA, PAULETTE Mccall Ot 789. 03 ABDOMINAL PAIN, RIGHT LOWER QUADRANT 08/12/2016 RAMILA SEGOVIA, PAULETTE R Ot 789. 03 ABDOMINAL PAIN, RIGHT LOWER QUADRANT 08/12/2016 ANASTACIA SEGOVIA, NHUNG Nichols Ot 272. 4 HYPERLIPIDEMIA NEC/NOS 08/12/2016 NHUNG GALAVIZ MD Ot 401. 9 HYPERTENSION NOS 08/12/2016 NHUNG GALAVIZ MD Ot 414. 00 CORON ATHEROSCLER NOS TYPE VESSEL, NATIV 08/12/2016 NHUNG GALAVIZ MD Ot 786. 50 CHEST PAIN NOS 08/12/2016 NHUNG GALAVIZ MD Ot 272. 4 HYPERLIPIDEMIA NEC/NOS 08/12/2016 NHUNG GALAVIZ MD Ot 401. 9 HYPERTENSION NOS 08/12/2016 NHUNG GALAVIZ MD Ot 414. 00 CORON ATHEROSCLER NOS TYPE VESSEL, NATIV 08/12/2016 NHUNG GALAVIZ MD Ot 786. 50 CHEST PAIN NOS 08/12/2016 VIRGILIO HARKINS DO Ot 414. 00 CORON ATHEROSCLER NOS TYPE VESSEL, NATIV 08/12/2016 VIRGILIO HARKINS DO Ot 496 CHR AIRWAY OBSTRUCT NEC 08/12/2016 VIRGILIO HARKINS DO Ot 530. 81 ESOPHAGEAL REFLUX 08/12/2016 VIRGILIO HARKINS DO Ot 780. 57 UNSPECIFIED SLEEP APNEA 08/12/2016 VIRGILIO HARKINS DO Ot 786. 09 RESPIRATORY ABNORM NEC 08/12/2016 ANTHONY FATIMA APRN Ot 414.00 CORON ATHEROSCLER NOS TYPE VESSEL, NATIV 08/12/2016 ANTHONY FATIMA APRN Ot 496 CHR AIRWAY OBSTRUCT NEC 08/12/2016 ANTHONY FATIMA APRN Ot 530.81 ESOPHAGEAL REFLUX 08/12/2016 ANTHONY FATIMA APRN Ot 780.57 UNSPECIFIED SLEEP APNEA 08/12/2016 ANTHOYN FATIMA APRN Ot 786.09 RESPIRATORY ABNORM NEC 08/12/2016 ENMANUEL GUILLEN MD Ot D69. 6 THROMBOCYTOPENIA, UNSPECIFIED 08/12/2016 ENMANUEL GUILLEN MD Ot R16. 1 SPLENOMEGALY, NOT ELSEWHERE CLASSIFIED 08/12/2016 ENMANUEL GUILLEN MD Ot R91. 8 OTHER NONSPECIFIC ABNORMAL FINDING OF [place] 08/12/2016 ANTHONY FATIMA APRN Ot G47.30 SLEEP APNEA, UNSPECIFIED 08/12/2016 ANTHONY FATIMA APRN Ot J30.9 ALLERGIC RHINITIS, UNSPECIFIED 08/12/2016 ANTHONY FATIMA APRN Ot J44.9 CHRONIC OBSTRUCTIVE PULMONARY DISEASE, U 08/12/2016 ANTHONY FATIMA APRN Ot Z87.891 PERSONAL HISTORY OF NICOTINE DEPENDENCE 08/12/2016 ANTHONY FATIMA APRN Ot J44.9 CHRONIC OBSTRUCTIVE PULMONARY DISEASE, U 08/12/2016 ENMANUEL GUILLEN MD Ot D64. 9 ANEMIA, UNSPECIFIED 08/12/2016 NALDO ROMO Ot I65.23 OCCLUSION AND STENOSIS OF BILATERAL LABOY 08/12/2016 VIRGILIO HARKINS DO Ot G47. 30 SLEEP APNEA, UNSPECIFIED 08/12/2016 VIRGILIO HARKINS DO Ot J30. 9 ALLERGIC RHINITIS, UNSPECIFIED 08/12/2016 VIRGILIO HARKINS DO Ot J44. 9 CHRONIC OBSTRUCTIVE PULMONARY DISEASE, U 08/12/2016 VIRGILIO HARKINS DO Ot R06. 00 DYSPNEA, UNSPECIFIED 08/12/2016 VIRGILIO HARKINS DO Ot J44. 9 CHRONIC OBSTRUCTIVE PULMONARY DISEASE, U 08/12/2016 VIRGILIO HARKINS DO Ot R91. 1 SOLITARY PULMONARY NODULE 08/12/2016 Ot R91.1 DONOVAN TARY PULMONARY NODULE 08/12/2016 ANTHONY FATIMA APRN Ot J44.9 CHRONIC OBSTRUCTIVE PULMONARY DISEASE, U 08/12/2016 ANTHONY FATIMA APRN Ot J84.9 INTERSTITIAL PULMONARY DISEASE, UNSPECIF 08/12/2016 ANTHONY FATIMA APRN Ot J96.20 ACUTE AND CHR RESP FAILURE, UNSP W HYPOX 08/12/2016 ANTHONY FATIMA APRN Ot R91.1 SOLITARY PULMONARY NODULE 08/12/2016 NALDO ROMO Ot G47.30 SLEEP APNEA, UNSPECIFIED 08/12/2016 NALDO ROMO Ot I10 ESSENTIAL (PRIMARY) HYPERTENSION 08/12/2016 NALDO ROMO Ot I25.10 ATHSCL HEART DISEASE OF [place] CORONARY 08/12/2016 NALDO ROMO Ot K21.9 GASTRO-ESOPHAGEAL REFLUX DISEASE WITHOUT 08/18/2016 NHUNG GALAVIZ MD Ot E11. 9 TYPE 2 DIABETES MELLITUS WITHOUT COMPLIC 08/18/2016 NHUNG GALAVIZ MD, Ot E66. 01 MORBID (SEVERE) OBESITY DUE TO EXCESS CA 08/18/2016 NHUNG GALAVIZ MD, Ot E78. 5 HYPERLIPIDEMIA, UNSPECIFIED 08/18/2016 NHUNG GALAVIZ MD, Ot I10 ESSENTIAL (PRIMARY) HYPERTENSION 08/18/2016 NHUNG GALAVIZ MD, Ot I25. 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 9 PERIPHERAL VASCULAR DISEASE, UNSPECIFIED 08/18/2016 NHUNG GALAVIZ MD, Ot J44. 9 CHRONIC OBSTRUCTIVE PULMONARY DISEASE, U 08/18/2016 NHUNG GALAVIZ MD, Ot T82.857A STENOSIS OF OTHER CARDIAC PROSTH DEV/GRF 08/18/2016 NHUNG GALAVIZ MD, Ot Z68. 41 BODY MASS INDEX (BMI) 40.0-44.9, ADULT 08/18/2016 NHUNG GALAVIZ MD, Ot Z79. 4 FPC (CURRENT) USE OF INSULIN 08/18/2016 NHUNG GALAVIZ MD Ot Z79.899 OTHER FPC (CURRENT) DRUG THERAPY 08/18/2016 NHUNG GALAVIZ MD, Ot Z87.891 PERSONAL HISTORY OF NICOTINE DEPENDENCE 08/18/2016 NHUNG GALAVIZ MD, Ot Z99. 81 DEPENDENCE ON SUPPLEMENTAL OXYGEN 09/01/2016 NALDO ROMO Ot G47.30 SLEEP APNEA, UNSPECIFIED 09/01/2016 NALDO ROMO Ot I10 ESSENTIAL (PRIMARY) HYPERTENSION 09/01/2016 NALDO ROMO Ot I25.10 ATHSCL HEART DISEASE OF [place] CORONARY 09/01/2016 NALDO ROMO Ot K21.9 GASTRO-ESOPHAGEAL REFLUX DISEASE WITHOUT 09/09/2016 NALDO ROMO Ot G47.30 SLEEP APNEA, UNSPECIFIED 09/09/2016 NALDO ROMO Ot I10 ESSENTIAL (PRIMARY) HYPERTENSION 09/09/2016 NALDO ROMO Ot I25.10 ATHSCL HEART DISEASE OF [place] CORONARY 09/09/2016 NALDO ROMO Ot K21.9 GASTRO-ESOPHAGEAL REFLUX DISEASE WITHOUT 09/28/2016 NHUNG GALAVIZ MD Ot E11. 9 TYPE 2 DIABETES MELLITUS WITHOUT COMPLIC 09/28/2016 NHUNG GALAVIZ MD Ot E66. 01 MORBID (SEVERE) OBESITY DUE TO EXCESS CA 09/28/2016 NHUNG GALAVIZ MD Ot E78. 5 HYPERLIPIDEMIA, UNSPECIFIED 09/28/2016 NHUNG GALAVIZ MD Ot I10 ESSENTIAL (PRIMARY) HYPERTENSION 09/28/2016 NHUNG GALAVIZ MD Ot I25. 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 9 PERIPHERAL VASCULAR DISEASE, UNSPECIFIED 09/28/2016 NHUNG GALAVIZ MD, Ot J44. 9 CHRONIC OBSTRUCTIVE PULMONARY DISEASE, U 09/28/2016 NHUNG GALAVIZ MD Ot T82.857A STENOSIS OF OTHER CARDIAC PROSTH DEV/GRF 09/28/2016 NHUNG GALAVIZ MD, Ot Z68. 41 BODY MASS INDEX (BMI) 40.0-44.9, ADULT 09/28/2016 NHUNG GALAVIZ MD Ot Z79. 4 FPC (CURRENT) USE OF INSULIN 09/28/2016 NHUNG GALAVIZ MD Ot Z79.899 OTHER PROJECT MANAGEMENT INTERN (CURRENT) DRUG THERAPY 09/28/2016 NHUNG GALAVIZ MD Ot Z87.891 PERSONAL HISTORY OF NICOTINE DEPENDENCE 09/28/2016 NHUNG GALAVIZ MD Ot Z99. 81 DEPENDENCE ON SUPPLEMENTAL OXYGEN 10/06/2016 Ot 272.4 HYPE RLIPIDEMIA NEC/NOS 10/06/2016 Ot 401.9 HYPE RTENSION NOS 10/06/2016 Ot 414.00 COR ON ATHEROSCLER NOS TYPE VESSEL, NATIV 10/06/2016 Ot 250.00 MIKHAIL B WILFREDO WO COMPL, TYPE II OR UNSPEC TY 10/06/2016 Ot 401.9 HYPE RTENSION NOS 10/06/2016 Ot 413.9 YECENIA NA PECTORIS NEC/NOS 10/06/2016 Ot 414.01 COR ONARY ATHEROSCLEROSIS OF [place] CORON 10/06/2016 Ot 429.3 CARD IOMEGALY 10/06/2016 Ot 496 CHR AI RWAY OBSTRUCT NEC 10/06/[address] PAIN NOS 10/06/2016 Ot V72.63 PRE -PROCEDURAL LABORATORY EXAMINATION 10/06/2016 Ot V72.81 [id number] CARDIOVASCULAR 10/06/2016 Ot 244.9 HYPO THYROIDISM NOS 10/06/2016 Ot 250.00 MIKHAIL B WILFREDO WO COMPL, TYPE II OR UNSPEC TY 10/06/2016 Ot 272.4 HYPE RLIPIDEMIA NEC/NOS 10/06/2016 Ot 278.01 MOR BID OBESITY 10/06/2016 Ot 285.9 ANEM IA NOS 10/06/2016 Ot 401.9 HYPE RTENSION NOS 10/06/2016 Ot 412 OLD MY OCARDIAL INFARCT 10/06/2016 Ot 414.00 COR ON ATHEROSCLER NOS TYPE VESSEL, NATIV 10/06/2016 Ot 443.9 THALIA PH VASCULAR DIS NOS 10/06/2016 Ot 496 CHR AI RWAY OBSTRUCT NEC 10/06/2016 Ot 530.81 ESO PHAGEAL REFLUX 10/06/2016 Ot 553.3 DIAP HRAGMATIC HERNIA 10/06/2016 Ot 780.57 UNS PECIFIED SLEEP APNEA 10/06/2016 Ot V12.55 PER DARREN HISTORY OF PULMONARY EMBOLISM 10/06/2016 Ot V44.0 TRAC HEOSTOMY STATUS 10/06/2016 Ot 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 10/06/2016 Ot V46.2 SUPP LEMENTAL OXYGEN 10/06/2016 Ot V58.61 ANTICOAGULANTS,LT,CURRENT USE 10/06/2016 Ot V58.69 OTH MED,LT,CURRENT USE 10/06/2016 Ot 285.9 ANEM IA NOS 10/06/2016 Ot 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 10/06/2016 Ot V58.61 ANTICOAGULANTS,LT,CURRENT USE 10/06/2016 Ot V58.61 ANTICOAGULANTS,LT,CURRENT USE 10/06/2016 Ot V58.83 ENC OUNTER FOR THERAPEUTIC DRUG MONITORIN 10/06/2016 Ot 401.9 HYPE RTENSION NOS 10/06/2016 Ot 414.00 COR ON ATHEROSCLER NOS TYPE VESSEL, NATIV 10/06/2016 Ot 285.9 ANEM IA NOS 10/06/2016 Ot 415.19 OTH PULMON EMBOLISM/INFARCT 10/06/2016 Ot V58.61 ANTICOAGULANTS,LT,CURRENT USE 10/06/2016 Ot 429.3 CARD IOMEGALY 10/06/2016 Ot 511.0 PLEU RISY W/O EFFUS OR TB 10/06/2016 Ot 786.2 COUGH 10/06/2016 Ot 272.4 HYPE RLIPIDEMIA NEC/NOS 10/06/2016 Ot 414.00 COR ON ATHEROSCLER NOS TYPE VESSEL, NATIV 10/31/2016 Ot 244.9 HYPO THYROIDISM NOS 10/31/2016 Ot 250.00 MIKHAIL B WILFREDO WO COMPL, TYPE II OR UNSPEC TY 10/31/2016 Ot 272.4 HYPE RLIPIDEMIA NEC/NOS 10/31/2016 Ot 278.01 MOR BID OBESITY 10/31/2016 Ot 285.9 ANEM IA NOS 10/31/2016 Ot 401.9 HYPE RTENSION NOS 10/31/2016 Ot 412 OLD MY OCARDIAL INFARCT 10/31/2016 Ot 414.00 COR ON ATHEROSCLER NOS TYPE VESSEL, NATIV 10/31/2016 Ot 443.9 THALIA PH VASCULAR DIS NOS 10/31/2016 Ot 496 CHR AI RWAY OBSTRUCT NEC 10/31/2016 Ot 530.81 ESO PHAGEAL REFLUX 10/31/2016 Ot 553.3 DIAP HRAGMATIC HERNIA 10/31/2016 Ot 780.57 UNS PECIFIED SLEEP APNEA 10/31/2016 Ot V12.55 PER DARREN HISTORY OF PULMONARY EMBOLISM 10/31/2016 Ot V44.0 TRAC HEOSTOMY STATUS 10/31/2016 Ot 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 10/31/2016 Ot V46.2 SUPP LEMENTAL OXYGEN 10/31/2016 Ot V58.61 ANTICOAGULANTS,LT,CURRENT USE 10/31/2016 Ot V58.69 OTH MED,LT,CURRENT USE 10/31/2016 Ot 285.9 ANEM IA NOS 10/31/2016 Ot 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 10/31/2016 Ot V58.61 ANTICOAGULANTS,LT,CURRENT USE 10/31/2016 Ot V58.61 ANTICOAGULANTS,LT,CURRENT USE 10/31/2016 Ot V58.83 ENC OUNTER FOR THERAPEUTIC DRUG MONITORIN 10/31/2016 Ot 401.9 HYPE RTENSION NOS 10/31/2016 Ot 414.00 COR ON ATHEROSCLER NOS TYPE VESSEL, NATIV 10/31/2016 Ot 285.9 ANEM IA NOS 10/31/2016 Ot 415.19 OTH PULMON EMBOLISM/INFARCT 10/31/2016 Ot V58.61 ANTICOAGULANTS,LT,CURRENT USE 10/31/2016 Ot 429.3 CARD IOMEGALY 10/31/2016 Ot 511.0 PLEU RISY W/O EFFUS OR TB 10/31/2016 Ot 786.2 COUGH 10/31/2016 Ot 272.4 HYPE RLIPIDEMIA NEC/NOS 10/31/2016 Ot 414.00 COR ON ATHEROSCLER NOS TYPE VESSEL, NATIV 05/21/2017 JONI WAYNE DO Ot E11.65 TYPE 2 DIABETES MELLITUS WITH HYPERGLYCE 05/21/2017 JONI WAYNE DO Ot E78.5 HYPERLIPIDEMIA, UNSPECIFIED 05/21/2017 JONI WAYNE DO Ot E87.1 HYPO-OSMOLALITY AND HYPONATREMIA 05/21/2017 JONI WAYNE DO Ot E87.6 HYPOKALEMIA 05/21/2017 JONI WAYNE DO Ot E89.0 POSTPROCEDURAL HYPOTHYROIDISM 05/21/2017 JONI WAYNE DO Ot F10.21 ALCOHOL DEPENDENCE, IN REMISSION 05/21/2017 JONI WAYNE DO Ot I11.0 HYPERTENSIVE HEART DISEASE WITH HEART FA 05/21/2017 JONI WAYNE DO Ot I25.10 ATHSCL HEART DISEASE OF [place] CORONARY 05/21/2017 JONI WAYNE DO Ot I50.32 CHRONIC DIASTOLIC (CONGESTIVE) HEART MODE 05/21/2017 JONI WAYNE DO Ot J18.9 PNEUMONIA, UNSPECIFIED ORGANISM 05/21/2017 JONI WAYNE DO Ot J44.0 CHRONIC OBSTRUCTIVE PULMON DISEASE W ACU 05/21/2017 JONI WAYNE DO Ot J44.1 CHRONIC OBSTRUCTIVE PULMONARY DISEASE W 05/21/2017 JONI WAYNE DO Ot J96.21 ACUTE AND CHRONIC RESPIRATORY FAILURE [place] 05/21/2017 JONI WAYNE DO Ot K21.9 GASTRO-ESOPHAGEAL REFLUX DISEASE WITHOUT 05/21/2017 JONI WAYNE DO Ot N17.9 ACUTE KIDNEY FAILURE, UNSPECIFIED 05/21/2017 JONI WAYNE DO Ot Z79.84 FPC (CURRENT) USE OF ORAL HYPOGLYC 05/21/2017 JONI WAYNE DO Ot Z86.73 PRSNL HX OF TIA (TIA), AND CEREB INFRC W 05/21/2017 JONI WAYNE DO Ot Z87.89 1 PERSONAL HISTORY OF NICOTINE DEPENDENCE 05/21/2017 JONI WAYNE DO Ot Z95.1 PRESENCE OF AORTOCORONARY BYPASS GRAFT 05/21/2017 JONI WAYNE DO Ot Z95.5 PRESENCE OF CORONARY ANGIOPLASTY IMPLANT 05/21/2017 JONI WAYNE DO Ot Z99.81 DEPENDENCE ON SUPPLEMENTAL OXYGEN 10/12/2017 NALDO ROMO Ot 250.00 DIAB WILFREDO WO COMPL, TYPE II OR UNSPEC TY 10/12/2017 NALDO ROMO Ot 272.4 HYPERLIPIDEMIA NEC/NOS 10/12/2017 NALDO ROMO Ot 397.0 TRICUSPID VALVE DISEASE 10/12/2017 NALDO ROMO Ot 401.9 HYPERTENSION NOS 10/12/2017 NALDO ROMO Ot 414.01 CORONARY ATHEROSCLEROSIS OF [place] CORON 10/12/2017 NALDO ROMO Ot 424.0 MITRAL VALVE DISORDER 10/12/2017 NALDO ROMO Ot 433.10 CAROTID ARTERY OCCLUSION W O CEREBRAL IN 10/12/2017 NALDO ROMO Ot 443.9 PERIPH VASCULAR DIS NOS 10/12/2017 NALDO ROMO Ot 729.5 PAIN IN LIMB 10/12/2017 NALDO ROMO Ot V45.81 AORTOCORONARY BYPASS 10/12/2017 NALDO ROMO Ot 250.00 DIAB WILFREDO WO COMPL, TYPE II OR UNSPEC TY 10/12/2017 NALDO ROMO Ot 272.4 HYPERLIPIDEMIA NEC/NOS 10/12/2017 ANLDO ROMO Ot 401.9 HYPERTENSION NOS 10/12/2017 NALDO ROMO Ot 414.00 CORON ATHEROSCLER NOS TYPE VESSEL, NATIV 10/12/2017 NALDO ROMO Ot V45.81 AORTOCORONARY BYPASS 10/12/2017 PB SEGOVIA FACSuleiman, RUSSELL RICOP CCDS Ot 272.4 HYPERLIPIDEMIA NEC/NOS 10/12/2017 PB SEGOVIA FACC, ALI FACP CCDS Ot 414.00 CORON ATHEROSCLER NOS TYPE VESSEL, NATIV 10/12/2017 NALDO ROMO Ot 790.6 ABN BLOOD CHEMISTRY NEC 10/12/2017 FLORES POWERS DPM Ot 726.91 EXOSTOSIS, SITE NOS 10/12/2017 FLORES POWERS DPM Ot V72.63 PRE-PROCEDURAL LABORATORY EXAMINATION 10/12/2017 FLORES POWERS DPM Ot V74.8 SCREEN-BACTERIAL DIS NEC 10/12/2017 Ot 785.1 PALP ITATIONS 10/12/2017 Ot 244.9 HYPO THYROIDISM NOS 10/12/2017 Ot 250.00 MIKHAIL B WILFREDO WO COMPL, TYPE II OR UNSPEC TY 10/12/2017 Ot 285.9 ANEM IA NOS 10/12/2017 Ot 414.00 COR ON ATHEROSCLER NOS TYPE VESSEL, NATIV 10/12/2017 Ot V12.55 PER DARREN HISTORY OF PULMONARY EMBOLISM 10/12/2017 Ot 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 10/12/2017 Ot V58.66 TREV G-TERM (CURRENT) USE OF ASPIRIN 10/12/2017 Ot V58.69 OTH MED,LT,CURRENT USE 10/12/2017 Ot 272.4 HYPE RLIPIDEMIA NEC/NOS 10/12/2017 Ot 414.00 COR ON ATHEROSCLER NOS TYPE VESSEL, NATIV 10/12/2017 RAMILA SEGOVIA, PAULETTE R Ot 789. 03 ABDOMINAL PAIN, RIGHT LOWER QUADRANT 10/12/2017 RAMILA SEGOVIA, PAULETTE R Ot 789. 03 ABDOMINAL PAIN, RIGHT LOWER QUADRANT 10/12/2017 ANASTACIA SEGOVIA, NHUNG J Ot 272. 4 HYPERLIPIDEMIA NEC/NOS 10/12/2017 ANASTACIA SEGOVIA, BASHAR J Ot 401. 9 HYPERTENSION NOS 10/12/2017 ANASTACIA SEGOVIA, BASSHILA J Ot 414. 00 CORON ATHEROSCLER NOS TYPE VESSEL, NATIV 10/12/2017 ANASTACIA SEGOVIA, NHUNG J Ot 786. 50 CHEST PAIN NOS 10/12/2017 ANASTACIA SEGOVIA, BASHAR J Ot 272. 4 HYPERLIPIDEMIA NEC/NOS 10/12/2017 ANASTACIA SEGOVIA, CAPRICEHAR J Ot 401. 9 HYPERTENSION NOS 10/12/2017 ANASTACIA SEGOVIA, CAPRICEHAR J Ot 414. 00 CORON ATHEROSCLER NOS TYPE VESSEL, NATIV 10/12/2017 ANASTACIA SEGOVIA, NHUNG J Ot 786. 50 CHEST PAIN NOS 10/12/2017 VIRGILIO HARKINS DO Ot 414. 00 CORON ATHEROSCLER NOS TYPE VESSEL, NATIV 10/12/2017 VIRGILIO HARKINS DO Ot 496 CHR AIRWAY OBSTRUCT NEC 10/12/2017 VIRGILIO HARKINS DO Ot 530. 81 ESOPHAGEAL REFLUX 10/12/2017 VIRGILIO HARKINS DO Ot 780. 57 UNSPECIFIED SLEEP APNEA 10/12/2017 VIRGILIO HARKINS DO Ot 786. 09 RESPIRATORY ABNORM NEC 10/12/2017 ANTHONY FATIMA APRN Ot 414.00 CORON ATHEROSCLER NOS TYPE VESSEL, NATIV 10/12/2017 ANTHONY FATIMA COAT PADDER Ot 496 CHR AIRWAY OBSTRUCT NEC 10/12/2017 ANTHONY FATIMA COAT PADDER Ot 530.81 ESOPHAGEAL REFLUX 10/12/2017 ANTHONY FATIMA COAT PADDER Ot 780.57 UNSPECIFIED SLEEP APNEA 10/12/2017 ANTHONY FATIMA COAT PADDER Ot 786.09 RESPIRATORY ABNORM NEC 10/12/2017 MINDY SEGOVIA, ENMANUEL Ot D69. 6 THROMBOCYTOPENIA, UNSPECIFIED 10/12/2017 MINDY SEGOVIA, ENMANUEL Ot R16. 1 SPLENOMEGALY, NOT ELSEWHERE CLASSIFIED 10/12/2017 MINDY SEGOVIA, ENMANUEL Ot R91. 8 OTHER NONSPECIFIC ABNORMAL FINDING OF [place] 10/12/2017 ANTHONY FATIMA APRN Ot G47.30 SLEEP APNEA, UNSPECIFIED 10/12/2017 ANTHONY FATIMA APRN Ot J30.9 ALLERGIC RHINITIS, UNSPECIFIED 10/12/2017 ANTHONY FATIMA APRN Ot J44.9 CHRONIC OBSTRUCTIVE PULMONARY DISEASE, U 10/12/2017 ANTHONY FATIMA APRN Ot Z87.891 PERSONAL HISTORY OF NICOTINE DEPENDENCE 10/12/2017 ANTHONY FATIMA APRN Ot J44.9 CHRONIC OBSTRUCTIVE PULMONARY DISEASE, U 10/12/2017 MINDY SEGOVIA, ENMANUEL Ot D64. 9 ANEMIA, UNSPECIFIED 10/12/2017 NALDO ROMO Ot I65.23 OCCLUSION AND STENOSIS OF BILATERAL [place] 10/12/2017 VIRGILIO HARKINS DO Ot G47. 30 SLEEP APNEA, UNSPECIFIED 10/12/2017 VIRGILIO HARKINS DO Ot J30. 9 ALLERGIC RHINITIS, UNSPECIFIED 10/12/2017 VIRGILIO HARKINS DO Ot J44. 9 CHRONIC OBSTRUCTIVE PULMONARY DISEASE, U 10/12/2017 VIRGILIO HARKINS DO Ot R06. 00 DYSPNEA, UNSPECIFIED 10/12/2017 VIRGILIO HARKINS DO Ot J44. 9 CHRONIC OBSTRUCTIVE PULMONARY DISEASE, U 10/12/2017 VIRGILIO HARKINS DO Ot R91. 1 SOLITARY PULMONARY NODULE 10/12/2017 Ot R91.1 DONOVAN TARY PULMONARY NODULE 10/12/2017 ANTHONY FATIMA APRN Ot J44.9 CHRONIC OBSTRUCTIVE PULMONARY DISEASE, U 10/12/2017 ANTHONY FATIMA APRN Ot J84.9 INTERSTITIAL PULMONARY DISEASE, UNSPECIF 10/12/2017 ANTHONY FATIMA APRN Ot J96.20 ACUTE AND CHR RESP FAILURE, UNSP W HYPOX 10/12/2017 ANTHONY FATIMA APRN Ot R91.1 SOLITARY PULMONARY NODULE 10/12/2017 NALDO ROMO Ot G47.30 SLEEP APNEA, UNSPECIFIED 10/12/2017 NALDO ROMO Ot I10 ESSENTIAL (PRIMARY) HYPERTENSION 10/12/2017 NALDO ROMO Ot I25.10 ATHSCL HEART DISEASE OF [place] CORONARY 10/12/2017 FROST-RACQUEL PA, NALDO K Ot K21.9 GASTRO-ESOPHAGEAL REFLUX DISEASE WITHOUT 10/17/2017 NALDO ROMO Ot 250.00 DIAB WILFREDO WO COMPL, TYPE II OR UNSPEC TY 10/17/2017 NALDO ROMO Ot 272.4 HYPERLIPIDEMIA NEC/NOS 10/17/2017 NALDO ROMO Ot 397.0 TRICUSPID VALVE DISEASE 10/17/2017 NALDO ROMO Ot 401.9 HYPERTENSION NOS 10/17/2017 NALDO ROMO Ot 414.01 CORONARY ATHEROSCLEROSIS OF [place] CORON 10/17/2017 NALDO ROMO Ot 424.0 MITRAL VALVE DISORDER 10/17/2017 NALDO ROMO Ot 433.10 CAROTID ARTERY OCCLUSION W O CEREBRAL IN 10/17/2017 NALDO ROMO Ot 443.9 PERIPH VASCULAR DIS NOS 10/17/2017 NALDO ROMO Ot 729.5 PAIN IN LIMB 10/17/2017 NALDO ROMO Ot V45.81 AORTOCORONARY BYPASS 10/17/2017 NALDO ROMO Ot 250.00 DIAB WILFREDO WO COMPL, TYPE II OR UNSPEC TY 10/17/2017 NALDO ROMO Ot 272.4 HYPERLIPIDEMIA NEC/NOS 10/17/2017 NALDO ROMO Ot 401.9 HYPERTENSION NOS 10/17/2017 NALDO ROMO Ot 414.00 CORON ATHEROSCLER NOS TYPE VESSEL, NATIV 10/17/2017 NALDO ROMO Ot V45.81 AORTOCORONARY BYPASS 10/17/2017 PB SEGOVIA FACC, RUSSELL COTTON CCDS Ot 272.4 HYPERLIPIDEMIA NEC/NOS 10/17/2017 PB SEGOVIA FACC, RUSSELL COTTON CCDS Ot 414.00 CORON ATHEROSCLER NOS TYPE VESSEL, NATIV 10/17/2017 NALDO ROMO Ot 790.6 ABN BLOOD CHEMISTRY NEC 10/17/2017 GIO DPIrene, FLORES Ho Ot 726.91 EXOSTOSIS, SITE NOS 10/17/2017 GIO WATERS, FLORES Ho Ot V72.63 PRE-PROCEDURAL LABORATORY EXAMINATION 10/17/2017 GIO WATERS, FLORES P Ot V74.8 SCREEN-BACTERIAL DIS NEC 10/17/2017 Ot 785.1 PALP ITATIONS 10/17/2017 Ot 244.9 HYPO THYROIDISM NOS 10/17/2017 Ot 250.00 MIKHAIL B WILFREDO WO COMPL, TYPE II OR UNSPEC TY 10/17/2017 Ot 285.9 ANEM IA NOS 10/17/2017 Ot 414.00 COR ON ATHEROSCLER NOS TYPE VESSEL, NATIV 10/17/2017 Ot V12.55 PER DARREN HISTORY OF PULMONARY EMBOLISM 10/17/2017 Ot 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 10/17/2017 Ot V58.66 TREV G-TERM (CURRENT) USE OF ASPIRIN 10/17/2017 Ot V58.69 OTH MED,LT,CURRENT USE 10/17/2017 Ot 272.4 HYPE RLIPIDEMIA NEC/NOS 10/17/2017 Ot 414.00 COR ON ATHEROSCLER NOS TYPE VESSEL, NATIV 10/17/2017 RAMILA SEGOVIA, PAULETTE Mccall Ot 789. 03 ABDOMINAL PAIN, RIGHT LOWER QUADRANT 10/17/2017 PAULETTE MCGRATH MD R Ot 789. 03 ABDOMINAL PAIN, RIGHT LOWER QUADRANT 10/17/2017 NHUNG GALAVIZ MD Ot 272. 4 HYPERLIPIDEMIA NEC/NOS 10/17/2017 ANASTACIA SEGOVIA, NHUNG Nichols Ot 401. 9 HYPERTENSION NOS 10/17/2017 ANASTACIA SEGOVIA, NHUNG Nichols Ot 414. 00 CORON ATHEROSCLER NOS TYPE VESSEL, NATIV 10/17/2017 NHUNG GALAVIZ MD Ot 786. 50 CHEST PAIN NOS 10/17/2017 NHUNG GALAVIZ MD Ot 272. 4 HYPERLIPIDEMIA NEC/NOS 10/17/2017 NHUNG GALAVIZ MD Ot 401. 9 HYPERTENSION NOS 10/17/2017 NHUNG GALAVIZ MD Ot 414. 00 CORON ATHEROSCLER NOS TYPE VESSEL, NATIV 10/17/2017 NHUNG GALAVIZ MD Ot 786. 50 CHEST PAIN NOS 10/17/2017 VIRGILIO HARKINS DO Ot 414. 00 CORON ATHEROSCLER NOS TYPE VESSEL, NATIV 10/17/2017 VIRGILIO HARKINS DO Ot 496 CHR AIRWAY OBSTRUCT NEC 10/17/2017 VIRGILIO HARKINS DO Ot 530. 81 ESOPHAGEAL REFLUX 10/17/2017 VIRGILIO HARKINS DO Ot 780. 57 UNSPECIFIED SLEEP APNEA 10/17/2017 VIRGILIO HARKINS DO Ot 786. 09 RESPIRATORY ABNORM NEC 10/17/2017 ANTHONY FATIMA APRN Ot 414.00 CORON ATHEROSCLER NOS TYPE VESSEL, NATIV 10/17/2017 ANTHONY FATIMA APRN Ot 496 CHR AIRWAY OBSTRUCT NEC 10/17/2017 ANTHONY FATIMA APRN Ot 530.81 ESOPHAGEAL REFLUX 10/17/2017 ANTHONY FATIMA APRN Ot 780.57 UNSPECIFIED SLEEP APNEA 10/17/2017 ANTHONY FATIMA APRN Ot 786.09 RESPIRATORY ABNORM NEC 10/17/2017 ENMANUEL GUILLEN MD Ot D69. 6 THROMBOCYTOPENIA, UNSPECIFIED 10/17/2017 ENMANUEL GUILLEN MD Ot R16. 1 SPLENOMEGALY, NOT ELSEWHERE CLASSIFIED 10/17/2017 ENMANUEL GUILLEN MD Ot R91. 8 OTHER NONSPECIFIC ABNORMAL FINDING OF [place] 10/17/2017 ANTHONY FATIMA APRN Ot G47.30 SLEEP APNEA, UNSPECIFIED 10/17/2017 ANTHONY FATIMA APRN Ot J30.9 ALLERGIC RHINITIS, UNSPECIFIED 10/17/2017 ANTHONY FATIMA APRN Ot J44.9 CHRONIC OBSTRUCTIVE PULMONARY DISEASE, U 10/17/2017 ANTHONY FATIMA APRN Ot Z87.891 PERSONAL HISTORY OF NICOTINE DEPENDENCE 10/17/2017 ANTHONY FATIMA APRN Ot J44.9 CHRONIC OBSTRUCTIVE PULMONARY DISEASE, U 10/17/2017 ENMANUEL GUILLEN MD Ot D64. 9 ANEMIA, UNSPECIFIED 10/17/2017 NALDO ROMO Ot I65.23 OCCLUSION AND STENOSIS OF BILATERAL [place] 10/17/2017 VIRGILIO HARKINS DO Ot G47. 30 SLEEP APNEA, UNSPECIFIED 10/17/2017 VIRGILIO HARKINS DO Ot J30. 9 ALLERGIC RHINITIS, UNSPECIFIED 10/17/2017 VIRGILIO HARKINS DO Ot J44. 9 CHRONIC OBSTRUCTIVE PULMONARY DISEASE, U 10/17/2017 VIRGILIO HARKINS DO Ot R06. 00 DYSPNEA, UNSPECIFIED 10/17/2017 VIRGILIO HARKINS DO Ot J44. 9 CHRONIC OBSTRUCTIVE PULMONARY DISEASE, U 10/17/2017 VIRGILIO HARKINS DO Ot R91. 1 SOLITARY PULMONARY NODULE 10/17/2017 Ot R91.1 DONOVAN TARY PULMONARY NODULE 10/17/2017 ANTHONY FATIMA APRN Ot J44.9 CHRONIC OBSTRUCTIVE PULMONARY DISEASE, U 10/17/2017 ANTHONY FATIAM APRN Ot J84.9 INTERSTITIAL PULMONARY DISEASE, UNSPECIF 10/17/2017 ANTHONY FATIMA APRN Ot J96.20 ACUTE AND CHR RESP FAILURE, UNSP W HYPOX 10/17/2017 ANTHONY FATIMA APRN Ot R91.1 SOLITARY PULMONARY NODULE 10/17/2017 NALDO ROMO Ot G47.30 SLEEP APNEA, UNSPECIFIED 10/17/2017 NALDO ROMO Ot I10 ESSENTIAL (PRIMARY) HYPERTENSION 10/17/2017 NALDO ROMO Ot I25.10 ATHSCL HEART DISEASE OF [place] CORONARY 10/17/2017 NALDO ROMO Ot K21.9 GASTRO-ESOPHAGEAL REFLUX DISEASE WITHOUT 10/18/2017 ANTHONY FATIMA APRN Ot J44.9 CHRONIC OBSTRUCTIVE PULMONARY DISEASE, U 10/18/2017 ANTHONY FATIMA APRN Ot J84.9 INTERSTITIAL PULMONARY DISEASE, UNSPECIF 10/18/2017 ANTHONY FATIMA APRN Ot R16.1 SPLENOMEGALY, NOT ELSEWHERE CLASSIFIED 10/18/2017 ANTHONY FATIMA APRN Ot R91.8 OTHER NONSPECIFIC ABNORMAL FINDING OF [place] 10/23/2017 ANTHONY FATIMA APRN Ot J44.9 CHRONIC OBSTRUCTIVE PULMONARY DISEASE, U 10/23/2017 ANTHONY FATIMA APRN Ot J84.9 INTERSTITIAL PULMONARY DISEASE, UNSPECIF 10/23/2017 ANTHONY FATIMA APRN Ot R16.1 SPLENOMEGALY, NOT ELSEWHERE CLASSIFIED 10/23/2017 ANTHONY FATIMA APRN Ot R91.8 OTHER NONSPECIFIC ABNORMAL FINDING OF [place] 10/25/2017 Ot 785.1 PALP ITATIONS 10/25/2017 Ot 244.9 HYPO THYROIDISM NOS 10/25/2017 Ot 250.00 MIKHAIL B WILFREDO WO COMPL, TYPE II OR UNSPEC TY 10/25/2017 Ot 285.9 ANEM IA NOS 10/25/2017 Ot 414.00 COR ON ATHEROSCLER NOS TYPE VESSEL, NATIV 10/25/2017 Ot V12.55 PER DARREN HISTORY OF PULMONARY EMBOLISM 10/25/2017 Ot 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 10/25/2017 Ot V58.66 TREV G-TERM (CURRENT) USE OF ASPIRIN 10/25/2017 Ot V58.69 OTH MED,LT,CURRENT USE 10/25/2017 VIRGILIO HARKINS DO Ot 414. 00 CORON ATHEROSCLER NOS TYPE VESSEL, NATIV 10/25/2017 VIRGILIO HARKINS DO Ot 496 CHR AIRWAY OBSTRUCT NEC 10/25/2017 VIRGILIO HARKINS DO Ot 530. 81 ESOPHAGEAL REFLUX 10/25/2017 VIRGILIO HARKINS DO Ot 780. 57 UNSPECIFIED SLEEP APNEA 10/25/2017 VRIGILIO HARKINS DO Ot 786. 09 RESPIRATORY ABNORM NEC 10/25/2017 MINDY SEGOVIA, ENMANUEL Ot D64. 9 ANEMIA, UNSPECIFIED 10/25/2017 VIRGILIO HARKINS DO, Ot Z01.818 ENCOUNTER FOR OTHER PREPROCEDURAL EXAMIN 11/01/2017 VIRGILIO HARKINS DO Ot E11. 40 TYPE 2 DIABETES MELLITUS WITH DIABETIC N 11/01/2017 VIRGILIO HARKINS DO Ot E66. 01 MORBID (SEVERE) OBESITY DUE TO EXCESS CA 11/01/2017 VIRGILIO HARKINS DO, Ot G47. 33 OBSTRUCTIVE SLEEP APNEA (ADULT) (PEDIATR 11/01/2017 VIRGILIO HARKINS DO Ot I10 ESSENTIAL (PRIMARY) HYPERTENSION 11/01/2017 VIRGILIO HARKINS DO, Ot I25. 10 ATHSCL HEART DISEASE OF [place] CORONARY 11/01/2017 VIRGILIO HARKINS DO, Ot I73. 9 PERIPHERAL VASCULAR DISEASE, UNSPECIFIED 11/01/2017 VIRGILIO HARKINS DO, Ot J30. 9 ALLERGIC RHINITIS, UNSPECIFIED 11/01/2017 VIRGILIO HARKINS DO, Ot J43. 9 EMPHYSEMA, UNSPECIFIED 11/01/2017 VIRGILIO HARKINS DO, Ot J84. 9 INTERSTITIAL PULMONARY DISEASE, UNSPECIF 11/01/2017 VIRGILIO HARKINS DO, Ot K21. 9 GASTRO-ESOPHAGEAL REFLUX DISEASE WITHOUT 11/01/2017 VIRGILIO HARKINS DO Ot R09. 02 HYPOXEMIA 11/01/2017 VIRGILIO HARKINS DO, Ot R59. 0 LOCALIZED ENLARGED LYMPH NODES 11/01/2017 VIRGILIO HARKINS DO Ot R91. 1 SOLITARY PULMONARY NODULE 11/01/2017 VIRGILIO HARKINS DO Ot Z79. 82 FPC (CURRENT) USE OF ASPIRIN 11/01/2017 VIRGILIO HARKINS DO, Ot Z79.899 OTHER FPC (CURRENT) DRUG THERAPY 11/01/2017 VIRGILIO HARKINS DO Ot Z86. 73 PRSNL HX OF TIA (TIA), AND CEREB INFRC W 11/01/2017 VIRGILIO HARKINS DO Ot Z87.891 PERSONAL HISTORY OF NICOTINE DEPENDENCE 11/01/2017 VIRGILIO HARKINS DO Ot Z95. 1 PRESENCE OF AORTOCORONARY BYPASS GRAFT 11/01/2017 VIRGILIO HARKINS DO Ot Z95. 5 PRESENCE OF CORONARY ANGIOPLASTY IMPLANT 11/01/2017 VIRGILIO HARKISN DO Ot Z99. 81 DEPENDENCE ON SUPPLEMENTAL OXYGEN 11/01/2017 NALDO ROMO Ot 250.00 DIAB WILFREDO WO COMPL, TYPE II OR UNSPEC TY 11/01/2017 NALDO ROMO Ot 272.4 HYPERLIPIDEMIA NEC/NOS 11/01/2017 NALDO ROMO Ot 397.0 TRICUSPID VALVE DISEASE 11/01/2017 NALDO ROMO Ot 401.9 HYPERTENSION NOS 11/01/2017 NALDO ROMO Ot 414.01 CORONARY ATHEROSCLEROSIS OF [place] CORON 11/01/2017 NALDO ROMO Ot 424.0 MITRAL VALVE DISORDER 11/01/2017 NALDO ROMO Ot 433.10 CAROTID ARTERY OCCLUSION W O CEREBRAL IN 11/01/2017 NALDO ROMO Ot 443.9 PERIPH VASCULAR DIS NOS 11/01/2017 NALDO ROMO Ot 729.5 PAIN IN LIMB 11/01/2017 NALDO ROMO Ot V45.81 AORTOCORONARY BYPASS 11/01/2017 NALDO ROMO Ot 250.00 DIAB WILFREDO WO COMPL, TYPE II OR UNSPEC TY 11/01/2017 NALDO ROMO Ot 272.4 HYPERLIPIDEMIA NEC/NOS 11/01/2017 NALDO ROMO Ot 401.9 HYPERTENSION NOS 11/01/2017 NALDO ROMO Ot 414.00 CORON ATHEROSCLER NOS TYPE VESSEL, NATIV 11/01/2017 NALDO ROMO Ot V45.81 AORTOCORONARY BYPASS 11/01/2017 PB ESGOVIA FAC, RUSSELL RICOP CCDS Ot 272.4 HYPERLIPIDEMIA NEC/NOS 11/01/2017 PB SEGOVIA FAC, RUSSELL FACP CCDS Ot 414.00 CORON ATHEROSCLER NOS TYPE VESSEL, NATIV 11/01/2017 NALDO ROMO Ot 790.6 ABN BLOOD CHEMISTRY NEC 11/01/2017 GIO DPM, FLORES Ho Ot 726.91 EXOSTOSIS, SITE NOS 11/01/2017 GIO DPM, FLORES Ho Ot V72.63 PRE-PROCEDURAL LABORATORY EXAMINATION 11/01/2017 GIO DPIrene, FLORES Ho Ot V74.8 SCREEN-BACTERIAL DIS NEC 11/01/2017 Ot 785.1 PALP ITATIONS 11/01/2017 Ot 244.9 HYPO THYROIDISM NOS 11/01/2017 Ot 250.00 MIKHAIL B WILFREDO WO COMPL, TYPE II OR UNSPEC TY 11/01/2017 Ot 285.9 ANEM IA NOS 11/01/2017 Ot 414.00 COR ON ATHEROSCLER NOS TYPE VESSEL, NATIV 11/01/2017 Ot V12.55 PER DARREN HISTORY OF PULMONARY EMBOLISM 11/01/2017 Ot 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 11/01/2017 Ot V58.66 TREV G-TERM (CURRENT) USE OF ASPIRIN 11/01/2017 Ot V58.69 OTH MED,LT,CURRENT USE 11/01/2017 Ot 272.4 HYPE RLIPIDEMIA NEC/NOS 11/01/2017 Ot 414.00 COR ON ATHEROSCLER NOS TYPE VESSEL, NATIV 11/01/2017 RAMILA SEGOVIA, PAULETTE Mccall Ot 789. 03 ABDOMINAL PAIN, RIGHT LOWER QUADRANT 11/01/2017 PAULETTE MCGRATH MD Ot 789. 03 ABDOMINAL PAIN, RIGHT LOWER QUADRANT 11/01/2017 ANASTACIA SEGOVIA, NHUNG Nichols Ot 272. 4 HYPERLIPIDEMIA NEC/NOS 11/01/2017 NHUNG GALAVIZ MD Ot 401. 9 HYPERTENSION NOS 11/01/2017 NHUNG GALAVIZ MD Ot 414. 00 CORON ATHEROSCLER NOS TYPE VESSEL, NATIV 11/01/2017 NHUNG GALAVIZ MD Ot 786. 50 CHEST PAIN NOS 11/01/2017 NHUNG GALAVIZ MD Ot 272. 4 HYPERLIPIDEMIA NEC/NOS 11/01/2017 NHUNG GALAVIZ MD Ot 401. 9 HYPERTENSION NOS 11/01/2017 ANASTACIA SEGOVIA NHUNG Nichols Ot 414. 00 CORON ATHEROSCLER NOS TYPE VESSEL, NATIV 11/01/2017 ANASTACIA SEGOVIA, NHUNG Nichols Ot 786. 50 CHEST PAIN NOS 11/01/2017 VIRGILIO HARKINS DO Ot 414. 00 CORON ATHEROSCLER NOS TYPE VESSEL, NATIV 11/01/2017 VIRGILIO HARKINS DO Ot 496 CHR AIRWAY OBSTRUCT NEC 11/01/2017 VIRGILIO HARKINS DO Ot 530. 81 ESOPHAGEAL REFLUX 11/01/2017 VIRGILIO HARKINS DO Ot 780. 57 UNSPECIFIED SLEEP APNEA 11/01/2017 VIRGILIO HARKINS DO Ot 786. 09 RESPIRATORY ABNORM NEC 11/01/2017 ANTHONY FATIMA APRN Ot 414.00 CORON ATHEROSCLER NOS TYPE VESSEL, NATIV 11/01/2017 ANTHONY FATIMA APRN Ot 496 CHR AIRWAY OBSTRUCT NEC 11/01/2017 ANTHONY FATIMA APRN Ot 530.81 ESOPHAGEAL REFLUX 11/01/2017 ANTHONY FATIMA APRN Ot 780.57 UNSPECIFIED SLEEP APNEA 11/01/2017 ANTHONY FATIMA APRN Ot 786.09 RESPIRATORY ABNORM NEC 11/01/2017 MINDY SEGOVIA, ENMANUEL Ot D69. 6 THROMBOCYTOPENIA, UNSPECIFIED 11/01/2017 MINDY SEGOVIA, ENMANUEL Ot R16. 1 SPLENOMEGALY, NOT ELSEWHERE CLASSIFIED 11/01/2017 MINDY SEGOVIA, ENMANUEL Ot R91. 8 OTHER NONSPECIFIC ABNORMAL FINDING OF [place] 11/01/2017 ANTHONY FATIMA APRN Ot G47.30 SLEEP APNEA, UNSPECIFIED 11/01/2017 ANTHONY FATIMA APRN Ot J30.9 ALLERGIC RHINITIS, UNSPECIFIED 11/01/2017 ANTHONY FATIMA APRN Ot J44.9 CHRONIC OBSTRUCTIVE PULMONARY DISEASE, U 11/01/2017 ANTHONY FATIMA APRN Ot Z87.891 PERSONAL HISTORY OF NICOTINE DEPENDENCE 11/01/2017 ANTHONY FATIMA APRN Ot J44.9 CHRONIC OBSTRUCTIVE PULMONARY DISEASE, U 11/01/2017 ENMANUEL GUILLEN MD Ot D64. 9 ANEMIA, UNSPECIFIED 11/01/2017 NALDO ROMO Ot I65.23 OCCLUSION AND STENOSIS OF BILATERAL [place] 11/01/2017 VIRGILIO HARKINS DO Ot G47. 30 SLEEP APNEA, UNSPECIFIED 11/01/2017 VIRGILIO HARKINS DO Ot J30. 9 ALLERGIC RHINITIS, UNSPECIFIED 11/01/2017 VIRGILIO HARKINS DO Ot J44. 9 CHRONIC OBSTRUCTIVE PULMONARY DISEASE, U 11/01/2017 VIRGILIO HARKINS DO Ot R06. 00 DYSPNEA, UNSPECIFIED 11/01/2017 VIRGILIO HARKINS DO Ot J44. 9 CHRONIC OBSTRUCTIVE PULMONARY DISEASE, U 11/01/2017 VIRGILIO HARKINS DO Ot R91. 1 SOLITARY PULMONARY NODULE 11/01/2017 Ot R91.1 DONOVAN TARY PULMONARY NODULE 11/01/2017 ANTHONY FATIMA APRN Ot J44.9 CHRONIC OBSTRUCTIVE PULMONARY DISEASE, U 11/01/2017 ANTHONY FATIMA APRN Ot J84.9 INTERSTITIAL PULMONARY DISEASE, UNSPECIF 11/01/2017 ANTHONY FATIMA APRN Ot J96.20 ACUTE AND CHR RESP FAILURE, UNSP W HYPOX 11/01/2017 ANTHONY FATIMA APRN Ot R91.1 SOLITARY PULMONARY NODULE 11/01/2017 NALDO ROMO Ot G47.30 SLEEP APNEA, UNSPECIFIED 11/01/2017 NALDO ROMO Ot I10 ESSENTIAL (PRIMARY) HYPERTENSION 11/01/2017 NALDO ROMO Ot I25.10 ATHSCL HEART DISEASE OF [place] CORONARY 11/01/2017 NALDO ROMO Ot K21.9 GASTRO-ESOPHAGEAL REFLUX DISEASE WITHOUT 11/01/2017 ANTHONY FATIMA APRN Ot J44.9 CHRONIC OBSTRUCTIVE PULMONARY DISEASE, U 11/01/2017 ANTHONY FATIMA APRN Ot J84.9 INTERSTITIAL PULMONARY DISEASE, UNSPECIF 11/01/2017 ANTHONY FATIMA APRN Ot R16.1 SPLENOMEGALY, NOT ELSEWHERE CLASSIFIED 11/01/2017 ANTHONY FATIMA APRN Ot R91.8 OTHER NONSPECIFIC ABNORMAL FINDING OF [place] 11/03/2017 VIRGILIO HARKINS DO Ot E11. 40 TYPE 2 DIABETES MELLITUS WITH DIABETIC N 11/03/2017 VIRGILIO HARKINS DO Ot E66. 01 MORBID (SEVERE) OBESITY DUE TO EXCESS CA 11/03/2017 VIRGILIO HARKINS DO, Ot G47. 33 OBSTRUCTIVE SLEEP APNEA (ADULT) (PEDIATR 11/03/2017 SHAHANA DO, VIRGILIO M Ot I10 ESSENTIAL (PRIMARY) HYPERTENSION 11/03/2017 VIRGILIO HARKINS DO, Ot I25. 10 ATHSCL HEART DISEASE OF [place] CORONARY 11/03/2017 VIRGILIO HARKINS DO Ot I73. 9 PERIPHERAL VASCULAR DISEASE, UNSPECIFIED 11/03/2017 VIRGILIO HARKINS DO, Ot J30. 9 ALLERGIC RHINITIS, UNSPECIFIED 11/03/2017 VIRGILIO HARKINS DO, Ot J43. 9 EMPHYSEMA, UNSPECIFIED 11/03/2017 VIRGILIO HARKINS DO, Ot J84. 9 INTERSTITIAL PULMONARY DISEASE, UNSPECIF 11/03/2017 VIRGILIO HARKINS DO, Ot K21. 9 GASTRO-ESOPHAGEAL REFLUX DISEASE WITHOUT 11/03/2017 VIRGILIO HARKINS DO, Ot R09. 02 HYPOXEMIA 11/03/2017 VIRGILIO HARKINS DO, Ot R59. 0 LOCALIZED ENLARGED LYMPH NODES 11/03/2017 VIRGILIO HARKINS DO Ot R91. 1 SOLITARY PULMONARY NODULE 11/03/2017 VIRGILIO HARKINS DO, Ot Z79. 82 PROJECT MANAGEMENT INTERN (CURRENT) USE OF ASPIRIN 11/03/2017 VIRGILIO HARKINS DO, Ot Z79.899 OTHER FPC (CURRENT) DRUG THERAPY 11/03/2017 VIRGILIO HARKINS DO, Ot Z86. 73 PRSNL HX OF TIA (TIA), AND CEREB INFRC W 11/03/2017 VIRGILIO HARKINS DO, Ot Z87.891 PERSONAL HISTORY OF NICOTINE DEPENDENCE 11/03/2017 VIRGILIO HARKINS DO Ot Z95. 1 PRESENCE OF AORTOCORONARY BYPASS GRAFT 11/03/2017 VIRGILIO HARKINS DO Ot Z95. 5 PRESENCE OF CORONARY ANGIOPLASTY IMPLANT 11/03/2017 VIRGILIO HARKINS DO Ot Z99. 81 DEPENDENCE ON SUPPLEMENTAL OXYGEN 11/07/2017 VIRGILIO HARKINS DO Ot E11. 40 TYPE 2 DIABETES MELLITUS WITH DIABETIC N 11/07/2017 VIRGILIO HARKINS DO Ot E66. 01 MORBID (SEVERE) OBESITY DUE TO EXCESS CA 11/07/2017 VIRGILIO HARKINS DO Ot G47. 33 OBSTRUCTIVE SLEEP APNEA (ADULT) (PEDIATR 11/07/2017 VIRGILIO HARKINS DO Ot I10 ESSENTIAL (PRIMARY) HYPERTENSION 11/07/2017 VIRGILIO HARKINS DO, Ot I25. 10 ATHSCL HEART DISEASE OF [place] CORONARY 11/07/2017 VIRGILIO HARKINS DO Ot I73. 9 PERIPHERAL VASCULAR DISEASE, UNSPECIFIED 11/07/2017 VIRGILIO HARKINS DO, Ot J30. 9 ALLERGIC RHINITIS, UNSPECIFIED 11/07/2017 VIRGILIO HARKINS DO Ot J43. 9 EMPHYSEMA, UNSPECIFIED 11/07/2017 VIRGILIO HARKINS DO, Ot J84. 9 INTERSTITIAL PULMONARY DISEASE, UNSPECIF 11/07/2017 VIRGILIO HARKINS DO, Ot K21. 9 GASTRO-ESOPHAGEAL REFLUX DISEASE WITHOUT 11/07/2017 VIRGILIO HARKINS DO Ot R09. 02 HYPOXEMIA 11/07/2017 VIRGILIO HARKINS DO, Ot R59. 0 LOCALIZED ENLARGED LYMPH NODES 11/07/2017 VIRGILIO HARKINS DO Ot R91. 1 SOLITARY PULMONARY NODULE 11/07/2017 VIRGILIO HARKINS DO, Ot Z79. 82 PROJECT MANAGEMENT INTERN (CURRENT) USE OF ASPIRIN 11/07/2017 VIRGILIO HARKINS DO, Ot Z79.899 OTHER PROJECT MANAGEMENT INTERN (CURRENT) DRUG THERAPY 11/07/2017 VIRGILIO HARKINS DO, Ot Z86. 73 PRSNL HX OF TIA (TIA), AND CEREB INFRC W 11/07/2017 VIRGILIO HARKINS DO, Ot Z87.891 PERSONAL HISTORY OF NICOTINE DEPENDENCE 11/07/2017 VIRGILIO HARKINS DO Ot Z95. 1 PRESENCE OF AORTOCORONARY BYPASS GRAFT 11/07/2017 VIRGILIO HARKINS DO Ot Z95. 5 PRESENCE OF CORONARY ANGIOPLASTY IMPLANT 11/07/2017 VIRGILIO HARKINS DO Ot Z99. 81 DEPENDENCE ON SUPPLEMENTAL OXYGEN 11/10/2017 ANTHONY FATIMA APRN Ot J44.9 CHRONIC OBSTRUCTIVE PULMONARY DISEASE, U 11/10/2017 ANTHONY FATIMA APRN Ot J84.9 INTERSTITIAL PULMONARY DISEASE, UNSPECIF 11/10/2017 ANTHONY FATIMA APRN Ot R16.1 SPLENOMEGALY, NOT ELSEWHERE CLASSIFIED 11/10/2017 ANTHONY FATIMA APRN Ot R91.8 OTHER NONSPECIFIC ABNORMAL FINDING OF [place] 11/13/2017 ANTHONY FATIMA APRN Ot B96.5 PSEUDOMONAS ([place]) CAUSING DISEASES CL 11/15/2017 ANTHONY FATIMA APRN Ot J44.9 CHRONIC OBSTRUCTIVE PULMONARY DISEASE, U 11/15/2017 ANTHONY FATIMA APRN Ot J84.9 INTERSTITIAL PULMONARY DISEASE, UNSPECIF 11/15/2017 ANTHONY FATIMA APRN Ot R16.1 SPLENOMEGALY, NOT ELSEWHERE CLASSIFIED 11/15/2017 ANTHONY FATIMA APRN Ot R91.8 OTHER NONSPECIFIC ABNORMAL FINDING OF [place] 11/19/2017 VIRGILIO HARKINS DO Ot E11. 40 TYPE 2 DIABETES MELLITUS WITH DIABETIC N 11/19/2017 VIRGILIO HARKINS DO Ot E66. 01 MORBID (SEVERE) OBESITY DUE TO EXCESS CA 11/19/2017 VIRGILIO HARKINS DO, Ot G47. 33 OBSTRUCTIVE SLEEP APNEA (ADULT) (PEDIATR 11/19/2017 VIRGILIO HARKINS DO Ot I10 ESSENTIAL (PRIMARY) HYPERTENSION 11/19/2017 VIRGILIO HARKINS DO, Ot I25. 10 ATHSCL HEART DISEASE OF [place] CORONARY 11/19/2017 VIRGILIO HARKINS DO, Ot I73. 9 PERIPHERAL VASCULAR DISEASE, UNSPECIFIED 11/19/2017 VIRGILIO HARKINS DO, Ot J30. 9 ALLERGIC RHINITIS, UNSPECIFIED 11/19/2017 VIRGILIO HARKINS DO, Ot J43. 9 EMPHYSEMA, UNSPECIFIED 11/19/2017 VIRGILIO HARKINS DO, Ot J84. 9 INTERSTITIAL PULMONARY DISEASE, UNSPECIF 11/19/2017 VIRGILIO HARKINS DO, Ot K21. 9 GASTRO-ESOPHAGEAL REFLUX DISEASE WITHOUT 11/19/2017 VIRGILIO HARKINS DO Ot R09. 02 HYPOXEMIA 11/19/2017 VIRGILIO HARKINS DO, Ot R59. 0 LOCALIZED ENLARGED LYMPH NODES 11/19/2017 VIRGILIO HARKINS DO Ot R91. 1 SOLITARY PULMONARY NODULE 11/19/2017 VIRGILIO HARKINS DO, Ot Z79. 82 PROJECT MANAGEMENT INTERN (CURRENT) USE OF ASPIRIN 11/19/2017 VIRGILIO HARKINS DO, Ot Z79.899 OTHER PROJECT MANAGEMENT INTERN (CURRENT) DRUG THERAPY 11/19/2017 VIRGILIO HARKINS DO, Ot Z86. 73 PRSNL HX OF TIA (TIA), AND CEREB INFRC W 11/19/2017 VIRGILIO HARKINS DO, Ot Z87.891 PERSONAL HISTORY OF NICOTINE DEPENDENCE 11/19/2017 VIRGILIO HARKINS DO Ot Z95. 1 PRESENCE OF AORTOCORONARY BYPASS GRAFT 11/19/2017 VIRGILIO HARKINS DO Ot Z95. 5 PRESENCE OF CORONARY ANGIOPLASTY IMPLANT 11/19/2017 VIRGILIO HARKINS DO Ot Z99. 81 DEPENDENCE ON SUPPLEMENTAL OXYGEN 11/28/2017 ANTHONY FATIMA APRN Ot B96.5 PSEUDOMONAS ([place]) CAUSING DISEASES CL 11/28/2017 ANTHONY FATIMA APRN Ot J44.9 CHRONIC OBSTRUCTIVE PULMONARY DISEASE, U 11/28/2017 ANTHONY FATIMA APRN Ot J96.20 ACUTE AND CHR RESP FAILURE, UNSP W HYPOX 11/28/2017 ANTHONY FATIMA APRN Ot J98.4 OTHER DISORDERS OF LUNG 11/29/2017 ANTHONY FATIMA APRN Ot B96.5 PSEUDOMONAS ([place]) CAUSING DISEASES CL 11/30/2017 VIRGILIO HARKINS DO, Ot J43. 9 EMPHYSEMA, UNSPECIFIED 11/30/2017 VIRGILIO HARKINS DO Ot R91. 8 OTHER NONSPECIFIC ABNORMAL FINDING OF [place] 11/30/2017 VIRGILIO HARKINS DO Ot R94. 8 ABNORMAL RESULTS OF FUNCTION STUDIES OF 12/01/2017 NALDO ROMO Ot 250.00 DIAB WILFREDO WO COMPL, TYPE II OR UNSPEC TY 12/01/2017 NALDO ROMO Ot 272.4 HYPERLIPIDEMIA NEC/NOS 12/01/2017 NALDO ROMO Ot 397.0 TRICUSPID VALVE DISEASE 12/01/2017 NALDO ROMO Ot 401.9 HYPERTENSION NOS 12/01/2017 NALDO ROMO Ot 414.01 CORONARY ATHEROSCLEROSIS OF [place] CORON 12/01/2017 NALDO ROMO Ot 424.0 MITRAL VALVE DISORDER 12/01/2017 NALDO ROMO Ot 433.10 CAROTID ARTERY OCCLUSION W O CEREBRAL IN 12/01/2017 NALDO ROMO Ot 443.9 PERIPH VASCULAR DIS NOS 12/01/2017 NALDO ROMO Ot 729.5 PAIN IN LIMB 12/01/2017 NALDO ROMO Ot V45.81 AORTOCORONARY BYPASS 12/01/2017 NALDO ROMO Ot 250.00 DIAB WILFREDO WO COMPL, TYPE II OR UNSPEC TY 12/01/2017 NALDO ROMO Ot 272.4 HYPERLIPIDEMIA NEC/NOS 12/01/2017 NALDO ROMO Ot 401.9 HYPERTENSION NOS 12/01/2017 NALDO ROMO Ot 414.00 CORON ATHEROSCLER NOS TYPE VESSEL, NATIV 12/01/2017 NALDO ROMO Ot V45.81 AORTOCORONARY BYPASS 12/01/2017 PB SEGOVIA FACC, ALI FACP CCDS Ot 272.4 HYPERLIPIDEMIA NEC/NOS 12/01/2017 PB SEGOVIA FACC, ALI FACP CCDS Ot 414.00 CORON ATHEROSCLER NOS TYPE VESSEL, NATIV 12/01/2017 NALDO ROMO Ot 790.6 ABN BLOOD CHEMISTRY NEC 12/01/2017 GIO DPIrene, FLORES P Ot 726.91 EXOSTOSIS, SITE NOS 12/01/2017 GIO DPIrene, FLORES Ho Ot V72.63 PRE-PROCEDURAL LABORATORY EXAMINATION 12/01/2017 GIO WATERS, FLORES Ho Ot V74.8 SCREEN-BACTERIAL DIS NEC 12/01/2017 Ot 785.1 PALP ITATIONS 12/01/2017 Ot 244.9 HYPO THYROIDISM NOS 12/01/2017 Ot 250.00 MIKHAIL B WILFREDO WO COMPL, TYPE II OR UNSPEC TY 12/01/2017 Ot 285.9 ANEM IA NOS 12/01/2017 Ot 414.00 COR ON ATHEROSCLER NOS TYPE VESSEL, NATIV 12/01/2017 Ot V12.55 PER DARREN HISTORY OF PULMONARY EMBOLISM 12/01/2017 Ot 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 12/01/2017 Ot V58.66 TREV G-TERM (CURRENT) USE OF ASPIRIN 12/01/2017 Ot V58.69 OTH MED,LT,CURRENT USE 12/01/2017 Ot 272.4 HYPE RLIPIDEMIA NEC/NOS 12/01/2017 Ot 414.00 COR ON ATHEROSCLER NOS TYPE VESSEL, NATIV 12/01/2017 RAMILA SEGOVIA, PAULETTE Mccall Ot 789. 03 ABDOMINAL PAIN, RIGHT LOWER QUADRANT 12/01/2017 RAMILA SEGOVIA, PAULETTE Mccall Ot 789. 03 ABDOMINAL PAIN, RIGHT LOWER QUADRANT 12/01/2017 ANASTACIA SEGOVIA, NHUNG Nichols Ot 272. 4 HYPERLIPIDEMIA NEC/NOS 12/01/2017 ANASTACIA SEGOVIA, NHUNG Nichols Ot 401. 9 HYPERTENSION NOS 12/01/2017 NHUNG GALAVIZ MD Ot 414. 00 CORON ATHEROSCLER NOS TYPE VESSEL, NATIV 12/01/2017 ANASTACIA SEGOVIA, NHUNG Nichols Ot 786. 50 CHEST PAIN NOS 12/01/2017 ANASTACIA SEGOVIA, NHUNG Nichols Ot 272. 4 HYPERLIPIDEMIA NEC/NOS 12/01/2017 ANASTACIA SEGOVIA, NHUNG Nichols Ot 401. 9 HYPERTENSION NOS 12/01/2017 ANASTACIA SEGOVIA, NHUNG Nichols Ot 414. 00 CORON ATHEROSCLER NOS TYPE VESSEL, NATIV 12/01/2017 ANASTACIA SEGOVIA, NHUNG Nichols Ot 786. 50 CHEST PAIN NOS 12/01/2017 VIRGILIO HARKINS DO Ot 414. 00 CORON ATHEROSCLER NOS TYPE VESSEL, NATIV 12/01/2017 SIMA HARKINS DOSON Irene Ot 496 CHR AIRWAY OBSTRUCT NEC 12/01/2017 VIRGILIO HARKINS DO Ot 530. 81 ESOPHAGEAL REFLUX 12/01/2017 VIRGILIO HARKINS DO Ot 780. 57 UNSPECIFIED SLEEP APNEA 12/01/2017 VIRGILIO HARKINS DO Ot 786. 09 RESPIRATORY ABNORM NEC 12/01/2017 ANTHONY FATIMA APRN Ot 414.00 CORON ATHEROSCLER NOS TYPE VESSEL, NATIV 12/01/2017 ANTHONY FATIMA APRN Ot 496 CHR AIRWAY OBSTRUCT NEC 12/01/2017 ANTHONY FATIMA APRN Ot 530.81 ESOPHAGEAL REFLUX 12/01/2017 ANTHONY FATIMA APRN Ot 780.57 UNSPECIFIED SLEEP APNEA 12/01/2017 ANTHONY FATIMA APRN Ot 786.09 RESPIRATORY ABNORM NEC 12/01/2017 ENMANUEL GUILLEN MD Ot D69. 6 THROMBOCYTOPENIA, UNSPECIFIED 12/01/2017 ENMANUEL GUILLEN MD Ot R16. 1 SPLENOMEGALY, NOT ELSEWHERE CLASSIFIED 12/01/2017 ENMANUEL GUILLEN MD Ot R91. 8 OTHER NONSPECIFIC ABNORMAL FINDING OF [place] 12/01/2017 ANTHONY FATIMA APRN Ot G47.30 SLEEP APNEA, UNSPECIFIED 12/01/2017 ANTHONY FATIMA APRN Ot J30.9 ALLERGIC RHINITIS, UNSPECIFIED 12/01/2017 ANTHONY FATIMA APRN Ot J44.9 CHRONIC OBSTRUCTIVE PULMONARY DISEASE, U 12/01/2017 ANTHONY FATIMA APRN Ot Z87.891 PERSONAL HISTORY OF NICOTINE DEPENDENCE 12/01/2017 ANTHONY FATIMA APRN Ot J44.9 CHRONIC OBSTRUCTIVE PULMONARY DISEASE, U 12/01/2017 MINDY SEGOVIA, ENMANUEL Ot D64. 9 ANEMIA, UNSPECIFIED 12/01/2017 NALDO ROMO Ot I65.23 OCCLUSION AND STENOSIS OF BILATERAL [place] 12/01/2017 VIRGILIO HARKINS DO M Ot G47. 30 SLEEP APNEA, UNSPECIFIED 12/01/2017 SIMA HARKINS DOSON M Ot J30. 9 ALLERGIC RHINITIS, UNSPECIFIED 12/01/2017 VIRGILIO HARKINS DO Ot J44. 9 CHRONIC OBSTRUCTIVE PULMONARY DISEASE, U 12/01/2017 VIRGILIO HARKINS DO M Ot R06. 00 DYSPNEA, UNSPECIFIED 12/01/2017 VIRGILIO HARKINS DO M Ot J44. 9 CHRONIC OBSTRUCTIVE PULMONARY DISEASE, U 12/01/2017 VIRGILIO HARKINS DO Ot R91. 1 SOLITARY PULMONARY NODULE 12/01/2017 Ot R91.1 DONOV[place] TARY PULMONARY NODULE 12/01/2017 ANTHONY FATIMA APRN Ot J44.9 CHRONIC OBSTRUCTIVE PULMONARY DISEASE, U 12/01/2017 ANTHONY FATIMA APRN Ot J84.9 INTERSTITIAL PULMONARY DISEASE, UNSPECIF 12/01/2017 ANTHONY FATIMA APRN Ot J96.20 ACUTE AND CHR RESP FAILURE, UNSP W HYPOX 12/01/2017 ANTHONY FATIMA APRN Ot R91.1 SOLITARY PULMONARY NODULE 12/01/2017 NALDO ROMO Ot G47.30 SLEEP APNEA, UNSPECIFIED 12/01/2017 NALDO ROMO Ot I10 ESSENTIAL (PRIMARY) HYPERTENSION 12/01/2017 NALDO ROMO Ot I25.10 ATHSCL HEART DISEASE OF [place] CORONARY 12/01/2017 NALDO ROMO Ot K21.9 GASTRO-ESOPHAGEAL REFLUX DISEASE WITHOUT 12/01/2017 ANTHONY FATIMA APRN Ot J44.9 CHRONIC OBSTRUCTIVE PULMONARY DISEASE, U 12/01/2017 ANTHONY FATIMA APRN Ot J84.9 INTERSTITIAL PULMONARY DISEASE, UNSPECIF 12/01/2017 ANTHONY FATIMA APRN Ot R16.1 SPLENOMEGALY, NOT ELSEWHERE CLASSIFIED 12/01/2017 ANTHONY FATIMA APRN Ot R91.8 OTHER NONSPECIFIC ABNORMAL FINDING OF [place] 12/01/2017 ANTHONY FATIMA APRN Ot B96.5 PSEUDOMONAS ([place]) CAUSING DISEASES CL 12/01/2017 ANTHONY FATIMA APRN Ot B96.5 PSEUDOMONAS ([place]) CAUSING DISEASES CL 12/01/2017 ANTHONY FATIMA APRN Ot J44.9 CHRONIC OBSTRUCTIVE PULMONARY DISEASE, U 12/01/2017 ANTHONY FATIMA APRN Ot J96.20 ACUTE AND CHR RESP FAILURE, UNSP W HYPOX 12/01/2017 ANTHONY FTAIMA APRN Ot J98.4 OTHER DISORDERS OF LUNG 12/01/2017 VIRGILIO HARKINS DO Ot J43. 9 EMPHYSEMA, UNSPECIFIED 12/01/2017 VIRGILIO HARKINS DO Ot R91. 8 OTHER NONSPECIFIC ABNORMAL FINDING OF [place] 12/01/2017 VIRGILIO HARKINS DO Ot R94. 8 ABNORMAL RESULTS OF FUNCTION STUDIES OF 12/01/2017 NALDO ROMO Ot 250.00 DIAB WILFREDO WO COMPL, TYPE II OR UNSPEC TY 12/01/2017 NALDO ROMO Ot 272.4 HYPERLIPIDEMIA NEC/NOS 12/01/2017 NALDO ROMO Ot 397.0 TRICUSPID VALVE DISEASE 12/01/2017 NALDO ROMO Ot 401.9 HYPERTENSION NOS 12/01/2017 NALDO ROMO Ot 414.01 CORONARY ATHEROSCLEROSIS OF [place] CORON 12/01/2017 NALDO ROMO Ot 424.0 MITRAL VALVE DISORDER 12/01/2017 NALDO ROMO Ot 433.10 CAROTID ARTERY OCCLUSION W O CEREBRAL IN 12/01/2017 NALDO ROMO Ot 443.9 PERIPH VASCULAR DIS NOS 12/01/2017 NALDO ROMO Ot 729.5 PAIN IN LIMB 12/01/2017 NALDO ROMO Ot V45.81 AORTOCORONARY BYPASS 12/01/2017 NALDO ROMO Ot 250.00 DIAB WILFREDO WO COMPL, TYPE II OR UNSPEC TY 12/01/2017 NALDO ROMO Ot 272.4 HYPERLIPIDEMIA NEC/NOS 12/01/2017 NALDO ROMO Ot 401.9 HYPERTENSION NOS 12/01/2017 NALDO ROMO Ot 414.00 CORON ATHEROSCLER NOS TYPE VESSEL, NATIV 12/01/2017 NALDO ORMO Ot V45.81 AORTOCORONARY BYPASS 12/01/2017 PB SEGOVIA FAC, ALI FACP CCDS Ot 272.4 HYPERLIPIDEMIA NEC/NOS 12/01/2017 PB SEGOVIA FAC, ALI FACP CCDS Ot 414.00 CORON ATHEROSCLER NOS TYPE VESSEL, NATIV 12/01/2017 NALDO ROMO Ot 790.6 ABN BLOOD CHEMISTRY NEC 12/01/2017 GIO DPIrene, FLORES Ho Ot 726.91 EXOSTOSIS, SITE NOS 12/01/2017 GIO WATERS, FLORES Ho Ot V72.63 PRE-PROCEDURAL LABORATORY EXAMINATION 12/01/2017 GIO WATERS, FLORES Ho Ot V74.8 SCREEN-BACTERIAL DIS NEC 12/01/2017 Ot 785.1 PALP ITATIONS 12/01/2017 Ot 244.9 HYPO THYROIDISM NOS 12/01/2017 Ot 250.00 MIKHAIL B WILFREDO WO COMPL, TYPE II OR UNSPEC TY 12/01/2017 Ot 285.9 ANEM IA NOS 12/01/2017 Ot 414.00 COR ON ATHEROSCLER NOS TYPE VESSEL, NATIV 12/01/2017 Ot V12.55 PER DARREN HISTORY OF PULMONARY EMBOLISM 12/01/2017 Ot 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 12/01/2017 Ot V58.66 TREV G-TERM (CURRENT) USE OF ASPIRIN 12/01/2017 Ot V58.69 OTH MED,LT,CURRENT USE 12/01/2017 Ot 272.4 HYPE RLIPIDEMIA NEC/NOS 12/01/2017 Ot 414.00 COR ON ATHEROSCLER NOS TYPE VESSEL, NATIV 12/01/2017 RAMILA SEGOVIA, PAULETTE Mccall Ot 789. 03 ABDOMINAL PAIN, RIGHT LOWER QUADRANT 12/01/2017 RAMILA SEGOVIA, PAULETTE R Ot 789. 03 ABDOMINAL PAIN, RIGHT LOWER QUADRANT 12/01/2017 ANASTACIA SEGOVIA, NHUNG Nichols Ot 272. 4 HYPERLIPIDEMIA NEC/NOS 12/01/2017 NHUNG GALAVIZ MD Ot 401. 9 HYPERTENSION NOS 12/01/2017 NHUNG GALAVIZ MD Ot 414. 00 CORON ATHEROSCLER NOS TYPE VESSEL, NATIV 12/01/2017 NHUNG GALAVIZ MD Ot 786. 50 CHEST PAIN NOS 12/01/2017 ANASTACIA SEGOVIA, NHUNG Nichols Ot 272. 4 HYPERLIPIDEMIA NEC/NOS 12/01/2017 ANASTACIA SEGOVIA, NHUNG Nichols Ot 401. 9 HYPERTENSION NOS 12/01/2017 ANASTACIA SEGOVIA, NHUNG Nichols Ot 414. 00 CORON ATHEROSCLER NOS TYPE VESSEL, NATIV 12/01/2017 ANASTACIA SEGOVIA, NHUNG Nichols Ot 786. 50 CHEST PAIN NOS 12/01/2017 SIMA HARKINS DOSON M Ot 414. 00 CORON ATHEROSCLER NOS TYPE VESSEL, NATIV 12/01/2017 SIMA HAKRINS DOSON M Ot 496 CHR AIRWAY OBSTRUCT NEC 12/01/2017 SIMA HARKINS DOSON M Ot 530. 81 ESOPHAGEAL REFLUX 12/01/2017 SIMA HARKINS DOSON M Ot 780. 57 UNSPECIFIED SLEEP APNEA 12/01/2017 SIMA HARKINS DOSON Irene Ot 786. 09 RESPIRATORY ABNORM NEC 12/01/2017 ANTHONY FATIMA APRN Ot 414.00 CORON ATHEROSCLER NOS TYPE VESSEL, NATIV 12/01/2017 ANTHONY FATIMA APRN Ot 496 CHR AIRWAY OBSTRUCT NEC 12/01/2017 ANTHONY FATIMA APRN Ot 530.81 ESOPHAGEAL REFLUX 12/01/2017 ANTHONY FATIMA APRN Ot 780.57 UNSPECIFIED SLEEP APNEA 12/01/2017 ANTHONY FATIMA APRN Ot 786.09 RESPIRATORY ABNORM NEC 12/01/2017 ENMANUEL GUILLEN MD Ot D69. 6 THROMBOCYTOPENIA, UNSPECIFIED 12/01/2017 ENMANUEL GUILLEN MD Ot R16. 1 SPLENOMEGALY, NOT ELSEWHERE CLASSIFIED 12/01/2017 ENMANUEL GUILLEN MD Ot R91. 8 OTHER NONSPECIFIC ABNORMAL FINDING OF [place] 12/01/2017 ANTHONY FATIMA APRN Ot G47.30 SLEEP APNEA, UNSPECIFIED 12/01/2017 ANTHONY FATIMA APRN Ot J30.9 ALLERGIC RHINITIS, UNSPECIFIED 12/01/2017 ANTHONY FATIMA APRN Ot J44.9 CHRONIC OBSTRUCTIVE PULMONARY DISEASE, U 12/01/2017 ANTHONY FATIMA APRN Ot Z87.891 PERSONAL HISTORY OF NICOTINE DEPENDENCE 12/01/2017 ANTHONY FATIMA APRN Ot J44.9 CHRONIC OBSTRUCTIVE PULMONARY DISEASE, U 12/01/2017 ENMANUEL GUILLEN MD Ot D64. 9 ANEMIA, UNSPECIFIED 12/01/2017 NALDO ROMO Ot I65.23 OCCLUSION AND STENOSIS OF BILATERAL [place] 12/01/2017 VIRGILIO HARKINS DO Ot G47. 30 SLEEP APNEA, UNSPECIFIED 12/01/2017 VIRGILIO HARKINS DO Ot J30. 9 ALLERGIC RHINITIS, UNSPECIFIED 12/01/2017 VIRGILIO HARKINS DO Ot J44. 9 CHRONIC OBSTRUCTIVE PULMONARY DISEASE, U 12/01/2017 VIRGILIO HARKINS DO Ot R06. 00 DYSPNEA, UNSPECIFIED 12/01/2017 VIRGILIO HARKINS DO Ot J44. 9 CHRONIC OBSTRUCTIVE PULMONARY DISEASE, U 12/01/2017 VIRGILIO HARKINS DO Ot R91. 1 SOLITARY PULMONARY NODULE 12/01/2017 Ot R91.1 DONOVAN TARY PULMONARY NODULE 12/01/2017 ANTHONY FATIMA APRN Ot J44.9 CHRONIC OBSTRUCTIVE PULMONARY DISEASE, U 12/01/2017 ANTHONY FATIMA APRN Ot J84.9 INTERSTITIAL PULMONARY DISEASE, UNSPECIF 12/01/2017 ANTHONY FATIMA APRN Ot J96.20 ACUTE AND CHR RESP FAILURE, UNSP W HYPOX 12/01/2017 ANTHONY FATIMA APRN Ot R91.1 SOLITARY PULMONARY NODULE 12/01/2017 NALDO ROMO Ot G47.30 SLEEP APNEA, UNSPECIFIED 12/01/2017 NALDO ROMO Ot I10 ESSENTIAL (PRIMARY) HYPERTENSION 12/01/2017 NALDO ROMO Ot I25.10 ATHSCL HEART DISEASE OF [place] CORONARY 12/01/2017 NALDO ROMO Ot K21.9 GASTRO-ESOPHAGEAL REFLUX DISEASE WITHOUT 12/01/2017 ANTHONY FATIMA APRN Ot J44.9 CHRONIC OBSTRUCTIVE PULMONARY DISEASE, U 12/01/2017 ANTHONY FATIMA APRN Ot J84.9 INTERSTITIAL PULMONARY DISEASE, UNSPECIF 12/01/2017 ANTHONY FATIMA APRN Ot R16.1 SPLENOMEGALY, NOT ELSEWHERE CLASSIFIED 12/01/2017 ANTHONY FATIMA APRN Ot R91.8 OTHER NONSPECIFIC ABNORMAL FINDING OF [place] 12/01/2017 ANTHONY FATIMA APRN Ot B96.5 PSEUDOMONAS (MALLEI) CAUSING DISEASES CL 12/01/2017 ANTHONY FATIMA APRN Ot B96.5 PSEUDOMONAS ([place]LEI) CAUSING DISEASES CL 12/01/2017 ANTHONY FATIMA APRN Ot J44.9 CHRONIC OBSTRUCTIVE PULMONARY DISEASE, U 12/01/2017 ATNHONY FATIMA APRN Ot J96.20 ACUTE AND CHR RESP FAILURE, UNSP W HYPOX 12/01/2017 ANTHONY FATIMA APRN Ot J98.4 OTHER DISORDERS OF LUNG 12/01/2017 VIRGILIO HARKINS DO Ot J43. 9 EMPHYSEMA, UNSPECIFIED 12/01/2017 VIRGILIO HARKINS DO Ot R91. 8 OTHER NONSPECIFIC ABNORMAL FINDING OF [place] 12/01/2017 VIRGILIO HARKINS DO Ot R94. 8 ABNORMAL RESULTS OF FUNCTION STUDIES OF 12/01/2017 NALDO ROMO Ot 250.00 DIAB WILFREDO WO COMPL, TYPE II OR UNSPEC TY 12/01/2017 NALDO ROMO Ot 272.4 HYPERLIPIDEMIA NEC/NOS 12/01/2017 NALDO ROMO Ot 397.0 TRICUSPID VALVE DISEASE 12/01/2017 NALDO ROMO Ot 401.9 HYPERTENSION NOS 12/01/2017 NALDO ROMO Ot 414.01 CORONARY ATHEROSCLEROSIS OF [place] CORON 12/01/2017 NALDO ROMO Ot 424.0 MITRAL VALVE DISORDER 12/01/2017 NALDO ROMO Ot 433.10 CAROTID ARTERY OCCLUSION W O CEREBRAL IN 12/01/2017 NALDO ROMO Ot 443.9 PERIPH VASCULAR DIS NOS 12/01/2017 NALDO ROMO Ot 729.5 PAIN IN LIMB 12/01/2017 NALDO ROMO Ot V45.81 AORTOCORONARY BYPASS 12/01/2017 NALDO ROMO Ot 250.00 DIAB WILFREDO WO COMPL, TYPE II OR UNSPEC TY 12/01/2017 NLADO ROMO Ot 272.4 HYPERLIPIDEMIA NEC/NOS 12/01/2017 NALDO ROMO Ot 401.9 HYPERTENSION NOS 12/01/2017 NALDO ROMO Ot 414.00 CORON ATHEROSCLER NOS TYPE VESSEL, NATIV 12/01/2017 NALDO ROMO Ot V45.81 AORTOCORONARY BYPASS 12/01/2017 PB SEGOVIA FAC, RUSSELL COTTON CCDS Ot 272.4 HYPERLIPIDEMIA NEC/NOS 12/01/2017 PB SEGOVIA FAC, RUSSELL COTTON CCDS Ot 414.00 CORON ATHEROSCLER NOS TYPE VESSEL, NATIV 12/01/2017 NALDO ROMO Ot 790.6 ABN BLOOD CHEMISTRY NEC 12/01/2017 POWERS DPM, FLORES P Ot 726.91 EXOSTOSIS, SITE NOS 12/01/2017 POWERS DPM, FLORES P Ot V72.63 PRE-PROCEDURAL LABORATORY EXAMINATION 12/01/2017 GIO DPIrene, FLORES Ho Ot V74.8 SCREEN-BACTERIAL DIS NEC 12/01/2017 Ot 785.1 PALP ITATIONS 12/01/2017 Ot 244.9 HYPO THYROIDISM NOS 12/01/2017 Ot 250.00 MIKHAIL B WILFREDO WO COMPL, TYPE II OR UNSPEC TY 12/01/2017 Ot 285.9 ANEM IA NOS 12/01/2017 Ot 414.00 COR ON ATHEROSCLER NOS TYPE VESSEL, NATIV 12/01/2017 Ot V12.55 PER DARREN HISTORY OF PULMONARY EMBOLISM 12/01/2017 Ot 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 12/01/2017 Ot V58.66 TREV G-TERM (CURRENT) USE OF ASPIRIN 12/01/2017 Ot V58.69 OTH MED,LT,CURRENT USE 12/01/2017 Ot 272.4 HYPE RLIPIDEMIA NEC/NOS 12/01/2017 Ot 414.00 COR ON ATHEROSCLER NOS TYPE VESSEL, NATIV 12/01/2017 RAMILA SEGOVIA, PAULETTE Mccall Ot 789. 03 ABDOMINAL PAIN, RIGHT LOWER QUADRANT 12/01/2017 PAULETTE MCGRATH MD R Ot 789. 03 ABDOMINAL PAIN, RIGHT LOWER QUADRANT 12/01/2017 ANASTACIA SEGOVIA, NHUNG Nichols Ot 272. 4 HYPERLIPIDEMIA NEC/NOS 12/01/2017 NHUNG GALAVIZ MD Ot 401. 9 HYPERTENSION NOS 12/01/2017 ANASTACIA SEGOVIA, NHUNG Nichols Ot 414. 00 CORON ATHEROSCLER NOS TYPE VESSEL, NATIV 12/01/2017 NHUNG GALAVIZ MD Ot 786. 50 CHEST PAIN NOS 12/01/2017 NHUNG GALAVIZ MD Ot 272. 4 HYPERLIPIDEMIA NEC/NOS 12/01/2017 ANASTACIA SEGOVIA, NHUNG Nichols Ot 401. 9 HYPERTENSION NOS 12/01/2017 ANASTACIA SEGOVIA, NHUNG Nichols Ot 414. 00 CORON ATHEROSCLER NOS TYPE VESSEL, NATIV 12/01/2017 NHUNG GALAVIZ MD Ot 786. 50 CHEST PAIN NOS 12/01/2017 VIRGILIO HARKINS DO Ot 414. 00 CORON ATHEROSCLER NOS TYPE VESSEL, NATIV 12/01/2017 VIRGILIO HARKINS DO Ot 496 CHR AIRWAY OBSTRUCT NEC 12/01/2017 VIRGILIO HARKINS DO Ot 530. 81 ESOPHAGEAL REFLUX 12/01/2017 VIRGILIO HARKINS DO Ot 780. 57 UNSPECIFIED SLEEP APNEA 12/01/2017 VIRGILIO HARKINS DO Ot 786. 09 RESPIRATORY ABNORM NEC 12/01/2017 ANTHONY FATIMA APRN Ot 414.00 CORON ATHEROSCLER NOS TYPE VESSEL, NATIV 12/01/2017 ANTHONY FATIMA APRN Ot 496 CHR AIRWAY OBSTRUCT NEC 12/01/2017 ANTHONY FATIMA APRN Ot 530.81 ESOPHAGEAL REFLUX 12/01/2017 ANTHONY FATIMA APRN Ot 780.57 UNSPECIFIED SLEEP APNEA 12/01/2017 ANTHONY FATIMA APRN Ot 786.09 RESPIRATORY ABNORM NEC 12/01/2017 ENMANUEL GUILLEN MD Ot D69. 6 THROMBOCYTOPENIA, UNSPECIFIED 12/01/2017 ENMANUEL GUILLEN MD Ot R16. 1 SPLENOMEGALY, NOT ELSEWHERE CLASSIFIED 12/01/2017 ENMANUEL GUILLEN MD Ot R91. 8 OTHER NONSPECIFIC ABNORMAL FINDING OF [place] 12/01/2017 ANTHONY FATIMA APRN Ot G47.30 SLEEP APNEA, UNSPECIFIED 12/01/2017 ANTHONY FATIMA APRN Ot J30.9 ALLERGIC RHINITIS, UNSPECIFIED 12/01/2017 ANTHONY FATIMA APRN Ot J44.9 CHRONIC OBSTRUCTIVE PULMONARY DISEASE, U 12/01/2017 ANTHONY FATIMA APRN Ot Z87.891 PERSONAL HISTORY OF NICOTINE DEPENDENCE 12/01/2017 ANTHONY FATIMA APRN Ot J44.9 CHRONIC OBSTRUCTIVE PULMONARY DISEASE, U 12/01/2017 ENMANUEL GUILLEN MD Ot D64. 9 ANEMIA, UNSPECIFIED 12/01/2017 ED IVORY, NALDO Davies Ot I65.23 OCCLUSION AND STENOSIS OF BILATERAL [place] 12/01/2017 VIRGILIO HARKINS DO Ot G47. 30 SLEEP APNEA, UNSPECIFIED 12/01/2017 VIRGILIO HARKINS DO Ot J30. 9 ALLERGIC RHINITIS, UNSPECIFIED 12/01/2017 VIRGILIO HARKINS DO Ot J44. 9 CHRONIC OBSTRUCTIVE PULMONARY DISEASE, U 12/01/2017 VIRGILIO HARKINS DO Ot R06. 00 DYSPNEA, UNSPECIFIED 12/01/2017 VIRGILIO HARKINS DO Ot J44. 9 CHRONIC OBSTRUCTIVE PULMONARY DISEASE, U 12/01/2017 VIRGILIO HARKINS DO Ot R91. 1 SOLITARY PULMONARY NODULE 12/01/2017 Ot R91.1 DONOVAN TARY PULMONARY NODULE 12/01/2017 ANTHONY FATIMA APRN Ot J44.9 CHRONIC OBSTRUCTIVE PULMONARY DISEASE, U 12/01/2017 ANTHONY FATIMA APRN Ot J84.9 INTERSTITIAL PULMONARY DISEASE, UNSPECIF 12/01/2017 ANTHONY FATIMA APRN Ot J96.20 ACUTE AND CHR RESP FAILURE, UNSP W HYPOX 12/01/2017 ANTHONY FATIMA APRN Ot R91.1 SOLITARY PULMONARY NODULE 12/01/2017 NALDO ROMO Ot G47.30 SLEEP APNEA, UNSPECIFIED 12/01/2017 NALDO ROMO Ot I10 ESSENTIAL (PRIMARY) HYPERTENSION 12/01/2017 NALDO ROMO Ot I25.10 ATHSCL HEART DISEASE OF [place] CORONARY 12/01/2017 NALDO ROMO Ot K21.9 GASTRO-ESOPHAGEAL REFLUX DISEASE WITHOUT 12/01/2017 ANTHONY FATIMA APRN Ot J44.9 CHRONIC OBSTRUCTIVE PULMONARY DISEASE, U 12/01/2017 ANTHONY FATIMA APRN Ot J84.9 INTERSTITIAL PULMONARY DISEASE, UNSPECIF 12/01/2017 ANTHONY FATIMA APRN Ot R16.1 SPLENOMEGALY, NOT ELSEWHERE CLASSIFIED 12/01/2017 ANTHONY FATIMA APRN Ot R91.8 OTHER NONSPECIFIC ABNORMAL FINDING OF [place] 12/01/2017 ANTHONY FATIMA APRN Ot B96.5 PSEUDOMONAS (MALLEI) CAUSING DISEASES CL 12/01/2017 ANTHONY FATIMA APRN Ot B96.5 PSEUDOMONAS ([place]ALLEI) CAUSING DISEASES CL 12/01/2017 ANTHONY FATIMA APRN Ot J44.9 CHRONIC OBSTRUCTIVE PULMONARY DISEASE, U 12/01/2017 ANTHONY FATIMA APRN Ot J96.20 ACUTE AND CHR RESP FAILURE, UNSP W HYPOX 12/01/2017 ANTHONY FATIMA APRN Ot J98.4 OTHER DISORDERS OF LUNG 12/01/2017 VIRGILIO HARKINS DO Ot J43. 9 EMPHYSEMA, UNSPECIFIED 12/01/2017 VIRGILIO HARKINS DO Ot R91. 8 OTHER NONSPECIFIC ABNORMAL FINDING OF [place] 12/01/2017 VIRGILIO HARKINS DO Ot R94. 8 ABNORMAL RESULTS OF FUNCTION STUDIES OF 12/05/2017 ANTHONY FATIMA APRN Ot J43.9 EMPHYSEMA, UNSPECIFIED 12/05/2017 ANTHONY FATIMA APRN Ot J84.9 INTERSTITIAL PULMONARY DISEASE, UNSPECIF 12/05/2017 ANTHONY FATIMA APRN Ot J96.20 ACUTE AND CHR RESP FAILURE, UNSP W HYPOX 12/05/2017 ANTHONY FATIMA APRN Ot R91.1 SOLITARY PULMONARY NODULE 12/05/2017 ANTHONY FATIMA APRN Ot Z87.891 PERSONAL HISTORY OF NICOTINE DEPENDENCE 12/05/2017 NHUNG GALAVIZ MD Ot E11. 9 TYPE 2 DIABETES MELLITUS WITHOUT COMPLIC 12/05/2017 NHUNG GALAVIZ MD Ot E78. 5 HYPERLIPIDEMIA, UNSPECIFIED 12/05/2017 NHUNG GALAVIZ MD Ot F10. 20 ALCOHOL DEPENDENCE, UNCOMPLICATED 12/05/2017 NHUNG GALAVIZ MD Ot I25. 10 ATHSCL HEART DISEASE OF [place] CORONARY 12/05/2017 NHUNG GALAVIZ MD Ot J44. 9 CHRONIC OBSTRUCTIVE PULMONARY DISEASE, U 12/05/2017 NHUNG GALAVIZ MD Ot J96. 20 ACUTE AND CHR RESP FAILURE, UNSP W HYPOX 12/06/2017 VIRGILIO HARKINS DO Ot R79. 1 ABNORMAL COAGULATION PROFILE 12/06/2017 VIRGILIO HARKINS DO Ot R79. 1 ABNORMAL COAGULATION PROFILE 12/06/2017 VIRGILIO HARKINS DO Ot R79. 1 ABNORMAL COAGULATION PROFILE 12/06/2017 VIRGILIO HARKINS DO Ot R79. 1 ABNORMAL COAGULATION PROFILE 12/06/2017 NHUNG GALAVIZ MD Ot E11. 9 TYPE 2 DIABETES MELLITUS WITHOUT COMPLIC 12/06/2017 NHUNG GALAVIZ MD Ot E78. 5 HYPERLIPIDEMIA, UNSPECIFIED 12/06/2017 NHUNG GALAVIZ MD Ot F10. 20 ALCOHOL DEPENDENCE, UNCOMPLICATED 12/06/2017 NHUNG GALAVIZ MD Ot I25. 10 ATHSCL HEART DISEASE OF [place] CORONARY 12/06/2017 NHUNG GALAVIZ MD Ot J44. 9 CHRONIC OBSTRUCTIVE PULMONARY DISEASE, U 12/06/2017 NHUNG GALAVIZ MD Ot J96. 20 ACUTE AND CHR RESP FAILURE, UNSP W HYPOX 12/12/2017 VIRGILIO HARKINS DO Ot B96. 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 9 EMPHYSEMA, UNSPECIFIED 12/12/2017 VIRGILIO HARKINS DO Ot J84. 9 INTERSTITIAL PULMONARY DISEASE, UNSPECIF 12/12/2017 VIRGILIO HARKINS DO Ot J96. 20 ACUTE AND CHR RESP FAILURE, UNSP W HYPOX 12/12/2017 VIRGILIO HARKINS DO Ot Z79.899 OTHER PROJECT MANAGEMENT INTERN (CURRENT) DRUG THERAPY 12/12/2017 SIMA HARKINS DOSON M Ot Z87.891 PERSONAL HISTORY OF NICOTINE DEPENDENCE 12/12/2017 VIRGILIO HARKINS DO Ot Z99. 81 DEPENDENCE ON SUPPLEMENTAL OXYGEN 12/13/2017 VIRGILIO HARKINS DO M Ot B96. 5 PSEUDOMONAS ([place]) CAUSING DISEASES CL 12/13/2017 VIRGILIO HARKINS DO M Ot C34. 11 MALIGNANT NEOPLASM OF UPPER LOBE, RIGHT 12/13/2017 VIRGILIO HARKINS DO Ot J43. 9 EMPHYSEMA, UNSPECIFIED 12/13/2017 VIRGILIO HARKINS DO Ot J84. 9 INTERSTITIAL PULMONARY DISEASE, UNSPECIF 12/13/2017 VIRGILIO HARKINS DO Ot J96. 20 ACUTE AND CHR RESP FAILURE, UNSP W HYPOX 12/13/2017 VIRGILIO HARKINS DO Ot Z79.899 OTHER PROJECT MANAGEMENT INTERN (CURRENT) DRUG THERAPY 12/13/2017 VIRGILIO HARKINS DO Ot Z87.891 PERSONAL HISTORY OF NICOTINE DEPENDENCE 12/13/2017 VIRGLIIO HARKINS DO Ot Z99. 81 DEPENDENCE ON SUPPLEMENTAL OXYGEN 12/13/2017 NHUNG GALAVIZ MD Ot E11. 51 TYPE 2 DIABETES W DIABETIC PERIPHERAL AN 12/13/2017 NHUNG GALAVIZ MD Ot E66. 01 MORBID (SEVERE) OBESITY DUE TO EXCESS CA 12/13/2017 NHUNG GALAVIZ MD Ot E78. 5 HYPERLIPIDEMIA, UNSPECIFIED 12/13/2017 NHUNG GALAVIZ MD Ot G47. 33 OBSTRUCTIVE SLEEP APNEA (ADULT) (PEDIATR 12/13/2017 NHUNG GALAVIZ MD Ot I11. 0 HYPERTENSIVE HEART DISEASE WITH HEART FA 12/13/2017 NHUNG GALAVIZ MD Ot I25. 10 ATHSCL HEART DISEASE OF [place] CORONARY 12/13/2017 NHUNG GALAVIZ MD Ot I50. 9 HEART FAILURE, UNSPECIFIED 12/13/2017 NHUNG GALAVIZ MD Ot J44. 9 CHRONIC OBSTRUCTIVE PULMONARY DISEASE, U 12/13/2017 NHUNG GALAVIZ MD Ot R06. 09 OTHER FORMS OF DYSPNEA 12/13/2017 NHUNG GALAVIZ MD Ot R07. 9 CHEST PAIN, UNSPECIFIED 12/13/2017 NHUNG GALAVIZ MD Ot R91. 1 SOLITARY PULMONARY NODULE 12/13/2017 NHUNG GALAVIZ MD Ot Z11. 2 ENCOUNTER FOR SCREENING FOR OTHER BACTER 12/13/2017 NHUNG GALAVIZ MD Ot Z68. 41 BODY MASS INDEX (BMI) 40.0-44.9, ADULT 12/13/2017 NHUNG GALAVIZ MD Ot Z79. 84 FPC (CURRENT) USE OF ORAL HYPOGLYC 12/13/2017 NHUNG GALAVIZ MD Ot Z79.899 OTHER FPC (CURRENT) DRUG THERAPY 12/13/2017 NHUNG GALAVIZ MD Ot Z99. 81 DEPENDENCE ON SUPPLEMENTAL OXYGEN 12/14/2017 NHUNG GALAVIZ MD Ot E11. 51 TYPE 2 DIABETES W DIABETIC PERIPHERAL AN 12/14/2017 NHUNG GALAVIZ MD Ot E66. 01 MORBID (SEVERE) OBESITY DUE TO EXCESS CA 12/14/2017 NHUNG GALAVIZ MD Ot E78. 5 HYPERLIPIDEMIA, UNSPECIFIED 12/14/2017 NHUNG GALAVIZ MD Ot G47. 33 OBSTRUCTIVE SLEEP APNEA (ADULT) (PEDIATR 12/14/2017 NHUNG GALAVIZ MD Ot I11. 0 HYPERTENSIVE HEART DISEASE WITH HEART FA 12/14/2017 NHUNG GALAVIZ MD Ot I25. 10 ATHSCL HEART DISEASE OF [place] CORONARY 12/14/2017 NHUNG GALAVIZ MD, Ot I50. 9 HEART FAILURE, UNSPECIFIED 12/14/2017 NHUNG GALAVIZ MD, Ot J44. 9 CHRONIC OBSTRUCTIVE PULMONARY DISEASE, U 12/14/2017 NHUNG GALAVIZ MD, Ot R06. 09 OTHER FORMS OF DYSPNEA 12/14/2017 NHUNG GALAVIZ MD, Ot R07. 9 CHEST PAIN, UNSPECIFIED 12/14/2017 NHUNG GALAVIZ MD Ot R91. 1 SOLITARY PULMONARY NODULE 12/14/2017 NHUNG GALAVIZ MD, Ot Z11. 2 ENCOUNTER FOR SCREENING FOR OTHER BACTER 12/14/2017 NHUNG GALAVIZ MD, Ot Z68. 41 BODY MASS INDEX (BMI) 40.0-44.9, ADULT 12/14/2017 NHUNG GALAVIZ MD, Ot Z79. 84 PROJECT MANAGEMENT INTERN (CURRENT) USE OF ORAL HYPOGLYC 12/14/2017 NHUNG GALAVIZ MD, Ot Z79.899 OTHER PROJECT MANAGEMENT INTERN (CURRENT) DRUG THERAPY 12/14/2017 NHUNG GALAVIZ MD, Ot Z99. 81 DEPENDENCE ON SUPPLEMENTAL OXYGEN 12/18/2017 VIRGILIO HARKINS DO, Ot B96. 5 PSEUDOMONAS ([place]) CAUSING DISEASES CL 12/18/2017 VIRGILIO HARKINS DO, Ot C34. 11 MALIGNANT NEOPLASM OF UPPER LOBE, RIGHT 12/18/2017 VIRGILIO HARKINS DO, Ot J43. 9 EMPHYSEMA, UNSPECIFIED 12/18/2017 VIRGILIO HARKINS DO, Ot J84. 9 INTERSTITIAL PULMONARY DISEASE, UNSPECIF 12/18/2017 VIRGILIO HARKINS DO, Ot J96. 20 ACUTE AND CHR RESP FAILURE, UNSP W HYPOX 12/18/2017 VIRGILIO HARKINS DO, Ot Z79.899 OTHER PROJECT MANAGEMENT INTERN (CURRENT) DRUG THERAPY 12/18/2017 VIRGILIO HARKINS DO, Ot Z87.891 PERSONAL HISTORY OF NICOTINE DEPENDENCE 12/18/2017 VIRGILIO HARKINS DO, Ot Z99. 81 DEPENDENCE ON SUPPLEMENTAL OXYGEN 12/19/2017 ANTHONY FATIMA APRN Ot B96.5 PSEUDOMONAS ([place]) CAUSING DISEASES CL 12/19/2017 ANTHONY FATIMA APRN Ot J44.9 CHRONIC OBSTRUCTIVE PULMONARY DISEASE, U 12/19/2017 ANTHONY FATIMA APRN Ot J96.20 ACUTE AND CHR RESP FAILURE, UNSP W HYPOX 12/19/2017 ANTHONY FATIMA COAT PADDER Ot J98.4 OTHER DISORDERS OF LUNG 12/20/2017 NHUNG GALAVIZ MD Ot E11. 9 TYPE 2 DIABETES MELLITUS WITHOUT COMPLIC 12/20/2017 NHUNG GALAVIZ MD Ot E78. 5 HYPERLIPIDEMIA, UNSPECIFIED 12/20/2017 NHUNG GALAVIZ MD Ot F10. 20 ALCOHOL DEPENDENCE, UNCOMPLICATED 12/20/2017 NHUNG GALAVIZ MD Ot I25. 10 ATHSCL HEART DISEASE OF [place] CORONARY 12/20/2017 NHUNG GALAVIZ MD Ot J43. 9 EMPHYSEMA, UNSPECIFIED 12/20/2017 NHUNG GALAVIZ MD Ot J84. 9 INTERSTITIAL PULMONARY DISEASE, UNSPECIF 12/20/2017 NHUNG GALAVIZ MD Ot J96. 20 ACUTE AND CHR RESP FAILURE, UNSP W HYPOX 12/20/2017 NHUNG GALAVIZ MD Ot R91. 1 SOLITARY PULMONARY NODULE 12/20/2017 NHUNG GALAVIZ MD Ot Z87.891 PERSONAL HISTORY OF NICOTINE DEPENDENCE 12/22/2017 VIRGILIO HARKINS DO Ot J43. 9 EMPHYSEMA, UNSPECIFIED 12/22/2017 VIRGILIO HARKINS DO Ot R91. 8 OTHER NONSPECIFIC ABNORMAL FINDING OF [place] 12/22/2017 VIRGILIO HARKINS DO Ot R94. 8 ABNORMAL RESULTS OF FUNCTION STUDIES OF 12/26/2017 NHUNG GALAVIZ MD Ot E11. 9 TYPE 2 DIABETES MELLITUS WITHOUT COMPLIC 12/26/2017 NHUNG GALAVIZ MD Ot E78. 5 HYPERLIPIDEMIA, UNSPECIFIED 12/26/2017 NHUNG GALAVIZ MD Ot F10. 20 ALCOHOL DEPENDENCE, UNCOMPLICATED 12/26/2017 NHUNG GALAVIZ MD Ot I25. 10 ATHSCL HEART DISEASE OF [place] CORONARY 12/26/2017 NHUNG GALAVIZ MD Ot J43. 9 EMPHYSEMA, UNSPECIFIED 12/26/2017 NHUNG GALAVIZ MD Ot J84. 9 INTERSTITIAL PULMONARY DISEASE, UNSPECIF 12/26/2017 NHUNG GALAVIZ MD Ot J96. 20 ACUTE AND CHR RESP FAILURE, UNSP W HYPOX 12/26/2017 NHUNG GALAVIZ MD Ot R91. 1 SOLITARY PULMONARY NODULE 12/26/2017 NHUNG GALAVIZ MD Ot Z87.891 PERSONAL HISTORY OF NICOTINE DEPENDENCE 12/27/2017 ANTHONY FATIMA APRN Ot B96.5 PSEUDOMONAS ([place]) CAUSING DISEASES CL 12/27/2017 ANTHONY FATIMA APRN Ot J44.9 CHRONIC OBSTRUCTIVE PULMONARY DISEASE, U 12/27/2017 ANTHONY FATIMA APRN Ot J96.20 ACUTE AND CHR RESP FAILURE, UNSP W HYPOX 12/27/2017 ANTHONY FATIMA APRN Ot J98.4 OTHER DISORDERS OF LUNG 12/27/2017 VIRGILIO HARKINS DO Ot J43. 9 EMPHYSEMA, UNSPECIFIED 12/27/2017 VIRGILIO HARKINS DO Ot R91. 8 OTHER NONSPECIFIC ABNORMAL FINDING OF [place] 12/27/2017 VIRGILIO HARKINS DO Ot R94. 8 ABNORMAL RESULTS OF FUNCTION STUDIES OF 01/01/2018 NHUNG GALAVIZ MD Ot E11. 9 TYPE 2 DIABETES MELLITUS WITHOUT COMPLIC 01/01/2018 NHUNG GALAVIZ MD Ot E78. 5 HYPERLIPIDEMIA, UNSPECIFIED 01/01/2018 NHUNG GALAVIZ MD Ot F10. 20 ALCOHOL DEPENDENCE, UNCOMPLICATED 01/01/2018 NHUNG GALAVIZ MD Ot I25. 10 ATHSCL HEART DISEASE OF [place] CORONARY 01/01/2018 NHUNG GALAVIZ MD Ot J43. 9 EMPHYSEMA, UNSPECIFIED 01/01/2018 NHUNG GALAVIZ MD Ot J84. 9 INTERSTITIAL PULMONARY DISEASE, UNSPECIF 01/01/2018 NHUNG GALAVIZ MD Ot J96. 20 ACUTE AND CHR RESP FAILURE, UNSP W HYPOX 01/01/2018 NHUNG GALAVIZ MD Ot R91. 1 SOLITARY PULMONARY NODULE 01/01/2018 NHUNG GALAVIZ MD Ot Z87.891 PERSONAL HISTORY OF NICOTINE DEPENDENCE 01/02/2018 NHUNG GALAVIZ MD Ot E11. 9 TYPE 2 DIABETES MELLITUS WITHOUT COMPLIC 01/02/2018 NHUNG GALAVIZ MD Ot E78. 5 HYPERLIPIDEMIA, UNSPECIFIED 01/02/2018 NHUNG GALAVIZ MD Ot F10. 20 ALCOHOL DEPENDENCE, UNCOMPLICATED 01/02/2018 NHUNG GALAVIZ MD Ot I25. 10 ATHSCL HEART DISEASE OF [place] CORONARY 01/02/2018 NHUNG GALAVIZ MD Ot J44. 9 CHRONIC OBSTRUCTIVE PULMONARY DISEASE, U 01/02/2018 ANASTACIA SEGOVIA, NHUNG Nichols Ot J96. 20 ACUTE AND CHR RESP FAILURE, UNSP W HYPOX 01/25/2018 ENMANUEL GUILLEN MD, Ot C34. 11 MALIGNANT NEOPLASM OF UPPER LOBE, RIGHT 01/25/2018 ENMANUEL GUILLEN MD Ot Z79.899 OTHER FPC (CURRENT) DRUG THERAPY 01/25/2018 ENMANUEL GUILLEN MD, Ot Z87.891 PERSONAL HISTORY OF NICOTINE DEPENDENCE 03/18/2018 ENMANUEL GUILLEN MD, Ot C34. 11 MALIGNANT NEOPLASM OF UPPER LOBE, RIGHT 03/18/2018 ENMANUEL GUILLEN MD Ot M89. 9 DISORDER OF BONE, UNSPECIFIED 03/18/2018 ENMANUEL GUILLEN MD, Ot C34. 11 MALIGNANT NEOPLASM OF UPPER LOBE, RIGHT 03/18/2018 ENMANUEL GUILLEN MD, Ot M89. 9 DISORDER OF BONE, UNSPECIFIED 03/20/2018 ENMANUEL GUILLEN MD, Ot C34. 11 MALIGNANT NEOPLASM OF UPPER LOBE, RIGHT 03/20/2018 ENMANUEL GUILLEN MD Ot Z79.899 OTHER PROJECT MANAGEMENT INTERN (CURRENT) DRUG THERAPY 03/20/2018 ENMANUEL GUILLEN MD Ot Z87.891 PERSONAL HISTORY OF NICOTINE DEPENDENCE 03/21/2018 ENMANUEL GUILLEN MD Ot C34. 11 MALIGNANT NEOPLASM OF UPPER LOBE, RIGHT 03/21/2018 ENMANUEL GUILLEN MD Ot Z79.899 OTHER PROJECT MANAGEMENT INTERN (CURRENT) DRUG THERAPY 03/21/2018 ENMANUEL GUILLEN MD Ot Z87.891 PERSONAL HISTORY OF NICOTINE DEPENDENCE 03/22/2018 ENMANUEL GUILLEN MD Ot C34. 11 MALIGNANT NEOPLASM OF UPPER LOBE, RIGHT 03/22/2018 ENMANUEL GUILLEN MD Ot Z79.899 OTHER FPC (CURRENT) DRUG THERAPY 03/22/2018 ENMANUEL GUILLEN MD Ot Z87.891 PERSONAL HISTORY OF NICOTINE DEPENDENCE 03/26/2018 ENMANUEL GUILLEN MD Ot C34. 11 MALIGNANT NEOPLASM OF UPPER LOBE, RIGHT 03/26/2018 ENMANUEL GUILLEN MD Ot Z79.899 OTHER FPC (CURRENT) DRUG THERAPY 03/26/2018 ENMANUEL GUILLEN MD Ot Z87.891 PERSONAL HISTORY OF NICOTINE DEPENDENCE 04/09/2018 ENMANUEL GUILLEN MD Ot C34. 11 MALIGNANT NEOPLASM OF UPPER LOBE, RIGHT 04/09/2018 ENMANUEL GUILLEN MD Ot M89. 9 DISORDER OF BONE, UNSPECIFIED 04/09/2018 VALENTINE WALTERS MD Ot E11.40 TYPE 2 DIABETES MELLITUS WITH DIABETIC N 04/09/2018 VALENTINE WALTERS MD, Ot E11.65 TYPE 2 DIABETES MELLITUS WITH HYPERGLYCE 04/09/2018 VALENTINE WALTERS MD Ot E78.00 PURE HYPERCHOLESTEROLEMIA, UNSPECIFIED 04/09/2018 VALENTINE WALTERS MD Ot E87.6 HYPOKALEMIA 04/09/2018 VALENTINE WALTERS MD Ot F10.20 ALCOHOL DEPENDENCE, UNCOMPLICATED 04/09/2018 VALENTINE WALTERS MD Ot G47.30 SLEEP APNEA, UNSPECIFIED 04/09/2018 VALENTINE WALTERS MD, Ot I10 ESSENTIAL (PRIMARY) HYPERTENSION 04/09/2018 VALENTINE WALTERS MD, Ot I25.10 ATHSCL HEART DISEASE OF [place] CORONARY 04/09/2018 VALENTINE WALTERS MD Ot I25.2 OLD MYOCARDIAL INFARCTION 04/09/2018 VALENTINE WALTERS MD, Ot J18.9 PNEUMONIA, UNSPECIFIED ORGANISM 04/09/2018 VALENTINE WALTERS MD, Ot J44.9 CHRONIC OBSTRUCTIVE PULMONARY DISEASE, U 04/09/2018 VALENTINE WALTERS MD, Ot K21.9 GASTRO-ESOPHAGEAL REFLUX DISEASE WITHOUT 04/09/2018 VALENTINE WALTERS MD, Ot N17.9 ACUTE KIDNEY FAILURE, UNSPECIFIED 04/09/2018 VALENTINE WALTERS MD, Ot R05 COUGH 04/09/2018 VALENTINE WALTERS MD Ot Z79.4 PROJECT MANAGEMENT INTERN (CURRENT) USE OF INSULIN 04/09/2018 VALENTINE WALTERS MD Ot Z79.51 PROJECT MANAGEMENT INTERN (CURRENT) USE OF INHALED STERO 04/09/2018 VALENTINE WALTERS MD, Ot Z79.82 FPC (CURRENT) USE OF ASPIRIN 04/09/2018 VALENTINE WALTERS MD, Ot Z82.49 FAMILY HX OF ISCHEM HEART DIS AND OTH DI 04/09/2018 VALENTINE WALTERS MD, Ot Z86.73 PRSNL HX OF TIA (TIA), AND CEREB INFRC W 04/09/2018 VALENTINE WALTERS MD, Ot Z87.01 PERSONAL HISTORY OF PNEUMONIA (RECURRENT 04/09/2018 VALENTINE WALTERS MD, Ot Z87.19 PERSONAL HISTORY OF OTHER DISEASES OF TH 04/09/2018 VALENTINE WALTERS MD, Ot Z87.891 PERSONAL HISTORY OF NICOTINE DEPENDENCE 04/09/2018 VALENTINE WALTERS MD, Ot Z88.8 ALLERGY STATUS TO [facility] DRUG/MEDS/BIOL SUB 04/09/2018 VALENTINE WALTERS MD, Ot Z90.49 ACQUIRED ABSENCE OF OTHER SPECIFIED PART 04/09/2018 VALENTINE WALTERS MD, Ot Z90.89 ACQUIRED ABSENCE OF OTHER ORGANS 04/09/2018 VALENTINE WALTERS MD, Ot Z95.1 PRESENCE OF AORTOCORONARY BYPASS GRAFT 04/09/2018 VALENTINE WALTERS MD, Ot Z95.5 PRESENCE OF CORONARY ANGIOPLASTY IMPLANT 04/09/2018 VALENTINE WALTERS MD, Ot Z98.890 OTHER SPECIFIED POSTPROCEDURAL STATES 04/09/2018 VALENTINE WALTERS MD, Ot Z99.81 DEPENDENCE ON SUPPLEMENTAL OXYGEN 04/11/2018 VALENTINE WALTERS MD, Ot E11.40 TYPE 2 DIABETES MELLITUS WITH DIABETIC N 04/11/2018 VALENTINE WALTERS MD, Ot E11.65 TYPE 2 DIABETES MELLITUS WITH HYPERGLYCE 04/11/2018 VALENTINE WALTERS MD, Ot E78.00 PURE HYPERCHOLESTEROLEMIA, UNSPECIFIED 04/11/2018 VALENTINE WALTERS MD, Ot E87.6 HYPOKALEMIA 04/11/2018 VALENTINE WALTERS MD, Ot F10.20 ALCOHOL DEPENDENCE, UNCOMPLICATED 04/11/2018 VALENTINE WALTERS MD, Ot G47.30 SLEEP APNEA, UNSPECIFIED 04/11/2018 VALENTINE WALTERS MD, Ot I10 ESSENTIAL (PRIMARY) HYPERTENSION 04/11/2018 VALENTINE WALTERS MD, Ot I25.10 ATHSCL HEART DISEASE OF [place] CORONARY 04/11/2018 VALENTINE WALTERS MD, Ot I25.2 OLD MYOCARDIAL INFARCTION 04/11/2018 VALENTINE WALTERS MD, Ot J18.9 PNEUMONIA, UNSPECIFIED ORGANISM 04/11/2018 VALENTINE WALTERS MD, Ot J44.9 CHRONIC OBSTRUCTIVE PULMONARY DISEASE, U 04/11/2018 VALENTINE WALTERS MD, Ot K21.9 GASTRO-ESOPHAGEAL REFLUX DISEASE WITHOUT 04/11/2018 VALENTINE WALTERS MD, Ot N17.9 ACUTE KIDNEY FAILURE, UNSPECIFIED 04/11/2018 VALENTINE WALTERS MD, Ot R05 COUGH 04/11/2018 VALENTINE WALTERS MD, Ot Z79.4 FPC (CURRENT) USE OF INSULIN 04/11/2018 VALENTINE WALTERS MD, Ot Z79.51 FPC (CURRENT) USE OF INHALED STERO 04/11/2018 VALENTINE WALTERS MD, Ot Z79.82 PROJECT MANAGEMENT INTERN (CURRENT) USE OF ASPIRIN 04/11/2018 VALENTINE WALTERS MD, Ot Z82.49 FAMILY HX OF ISCHEM HEART DIS AND OTH DI 04/11/2018 VALENTINE WALTERS MD, Ot Z86.73 PRSNL HX OF TIA (TIA), AND CEREB INFRC W 04/11/2018 VALENTINE WALTERS MD, Ot Z87.01 PERSONAL HISTORY OF PNEUMONIA (RECURRENT 04/11/2018 VALENTINE WALTERS MD, Ot Z87.19 PERSONAL HISTORY OF OTHER DISEASES OF TH 04/11/2018 VALENTINE WALTERS MD, Ot Z87.891 PERSONAL HISTORY OF NICOTINE DEPENDENCE 04/11/2018 VALENTINE WALTERS MD, Ot Z88.8 ALLERGY STATUS TO [facility] DRUG/MEDS/BIOL SUB 04/11/2018 VALENTINE WALTERS MD, Ot Z90.49 ACQUIRED ABSENCE OF OTHER SPECIFIED PART 04/11/2018 VALENTINE WALTERS MD, Ot Z90.89 ACQUIRED ABSENCE OF OTHER ORGANS 04/11/2018 VALENTINE WALTERS MD, Ot Z95.1 PRESENCE OF AORTOCORONARY BYPASS GRAFT 04/11/2018 BRUEGGEMANN MD, VALENTINE T Ot Z95.5 PRESENCE OF CORONARY ANGIOPLASTY IMPLANT 04/11/2018 VLAENTINE WALTERS MD Ot Z98.890 OTHER SPECIFIED POSTPROCEDURAL STATES 04/11/2018 VALENTINE WALTERS MD Ot Z99.81 DEPENDENCE ON SUPPLEMENTAL OXYGEN 04/17/2018 ENMANUEL GUILLEN MD, Ot C34. 11 MALIGNANT NEOPLASM OF UPPER LOBE, RIGHT 04/17/2018 ENMANUEL GUILLEN MD Ot M89. 9 DISORDER OF BONE, UNSPECIFIED 04/18/2018 ENMANUEL GUILLEN MD, Ot C34. 11 MALIGNANT NEOPLASM OF UPPER LOBE, RIGHT 04/18/2018 ENMANUEL GUILLEN MD, Ot Z79.899 OTHER FPC (CURRENT) DRUG THERAPY 04/18/2018 ENMANUEL GUILLEN MD, Ot Z87.891 PERSONAL HISTORY OF NICOTINE DEPENDENCE 05/18/2018 ANTHONY FATIMA APRN Ot G47.30 SLEEP APNEA, UNSPECIFIED 05/18/2018 ANTHONY AFTIMA APRN Ot J18.9 PNEUMONIA, UNSPECIFIED ORGANISM 05/18/2018 ANTHONY FATIMA APRN Ot J30.9 ALLERGIC RHINITIS, UNSPECIFIED 05/18/2018 ANTHONY FATIMA APRN Ot J43.9 EMPHYSEMA, UNSPECIFIED 05/18/2018 ANTHONY FATIMA APRN Ot J96.20 ACUTE AND CHR RESP FAILURE, UNSP W HYPOX 05/18/2018 ANTHONY FATIMA APRN Ot R91.1 SOLITARY PULMONARY NODULE 05/18/2018 ANTHONY FATIMA APRN Ot Z87.891 PERSONAL HISTORY OF NICOTINE DEPENDENCE 05/18/2018 ANTHONY FATIMA APRN Ot Z98.890 OTHER SPECIFIED POSTPROCEDURAL STATES 06/06/2018 ENMANUEL GUILLEN MD, Ot C34. 11 MALIGNANT NEOPLASM OF UPPER LOBE, RIGHT 06/06/2018 ENMANUEL GUILLEN MD Ot D61.818 OTHER PANCYTOPENIA 06/06/2018 ENMANUEL GUILLEN MD Ot E03. 9 HYPOTHYROIDISM, UNSPECIFIED 06/06/2018 ENMANUEL GUILLEN MD Ot E11. 9 TYPE 2 DIABETES MELLITUS WITHOUT COMPLIC 06/06/2018 ENMANUEL GUILLEN MD Ot E66. 01 MORBID (SEVERE) OBESITY DUE TO EXCESS CA 06/06/2018 ENMANUEL GUILLEN MD Ot E78. 5 HYPERLIPIDEMIA, UNSPECIFIED 06/06/2018 ENMANUEL GUILLEN MD, Ot F10. 20 ALCOHOL DEPENDENCE, UNCOMPLICATED 06/06/2018 ENMANUEL GUILLEN MD, Ot G47. 33 OBSTRUCTIVE SLEEP APNEA (ADULT) (PEDIATR 06/06/2018 ENMANUEL GUILLEN MD, Ot I10 ESSENTIAL (PRIMARY) HYPERTENSION 06/06/2018 ENMANUEL GUILLEN MD, Ot I25. 10 ATHSCL HEART DISEASE OF [place] CORONARY 06/06/2018 ENMANUEL GUILLEN MD, Ot I25. 2 OLD MYOCARDIAL INFARCTION 06/06/2018 ENMANUEL GUILLEN MD, Ot J43. 9 EMPHYSEMA, UNSPECIFIED 06/06/2018 ENMANUEL GUILLEN MD, Ot K21. 9 GASTRO-ESOPHAGEAL REFLUX DISEASE WITHOUT 06/06/2018 ENMANUEL GUILLEN MD, Ot K44. 9 DIAPHRAGMATIC HERNIA WITHOUT OBSTRUCTION 06/06/2018 ENMANUEL GUILLEN MD, Ot K59. 00 CONSTIPATION, UNSPECIFIED 06/06/2018 ENMANUEL GUILLEN MD, Ot Z68. 39 BODY MASS INDEX (BMI) 39.0-39.9, ADULT 06/06/2018 ENMANUEL GUILLEN MD, Ot Z79. 4 FPC (CURRENT) USE OF INSULIN 06/06/2018 ENMANUEL GUILLEN MD, Ot Z79. 82 FPC (CURRENT) USE OF ASPIRIN 06/06/2018 ENMANUEL GUILLEN MD, Ot Z79.899 OTHER PROJECT MANAGEMENT INTERN (CURRENT) DRUG THERAPY 06/06/2018 ENMANUEL GUILLEN MD, Ot Z86.711 PERSONAL HISTORY OF PULMONARY EMBOLISM 06/06/2018 ENMANUEL GUILLEN MD, Ot Z87.891 PERSONAL HISTORY OF NICOTINE DEPENDENCE 06/06/2018 ENMANUEL GUILLEN MD, Ot Z95. 1 PRESENCE OF AORTOCORONARY BYPASS GRAFT 06/12/2018 ENMANUEL GUILLEN MD, Ot C34. 11 MALIGNANT NEOPLASM OF UPPER LOBE, RIGHT 06/12/2018 ENMANUEL GUILLEN MD, Ot D61.818 OTHER PANCYTOPENIA 06/12/2018 ENMANUEL GUILLEN MD, Ot E03. 9 HYPOTHYROIDISM, UNSPECIFIED 06/12/2018 ENMANUEL GUILLEN MD, Ot E11. 9 TYPE 2 DIABETES MELLITUS WITHOUT COMPLIC 06/12/2018 ENMANUEL GUILLEN MD, Ot E66. 01 MORBID (SEVERE) OBESITY DUE TO EXCESS CA 06/12/2018 ENMANUEL GUILLEN MD, Ot E78. 5 HYPERLIPIDEMIA, UNSPECIFIED 06/12/2018 ENMANUEL GUILLEN MD, Ot F10. 20 ALCOHOL DEPENDENCE, UNCOMPLICATED 06/12/2018 ENMANUEL GUILLEN MD, Ot G47. 33 OBSTRUCTIVE SLEEP APNEA (ADULT) (PEDIATR 06/12/2018 ENMANUEL GUILLEN MD Ot I10 ESSENTIAL (PRIMARY) HYPERTENSION 06/12/2018 ENMANUEL GUILLEN MD, Ot I25. 10 ATHSCL HEART DISEASE OF [place] CORONARY 06/12/2018 ENMANUEL GUILLEN MD, Ot I25. 2 OLD MYOCARDIAL INFARCTION 06/12/2018 ENMANUEL GUILLEN MD, Ot J43. 9 EMPHYSEMA, UNSPECIFIED 06/12/2018 ENMANUEL GUILLEN MD, Ot K21. 9 GASTRO-ESOPHAGEAL REFLUX DISEASE WITHOUT 06/12/2018 ENMANUEL GUILLEN MD, Ot K44. 9 DIAPHRAGMATIC HERNIA WITHOUT OBSTRUCTION 06/12/2018 ENMANUEL GUILLEN MD, Ot K59. 00 CONSTIPATION, UNSPECIFIED 06/12/2018 ENMANUEL GUILLEN MD, Ot Z68. 39 BODY MASS INDEX (BMI) 39.0-39.9, ADULT 06/12/2018 ENMANUEL GUILLEN MD Ot Z79. 4 PROJECT MANAGEMENT INTERN (CURRENT) USE OF INSULIN 06/12/2018 ENMANUEL GUILLEN MD, Ot Z79. 82 PROJECT MANAGEMENT INTERN (CURRENT) USE OF ASPIRIN 06/12/2018 ENMANUEL GUILLEN MD, Ot Z79.899 OTHER FPC (CURRENT) DRUG THERAPY 06/12/2018 ENMANUEL GUILLEN MD, Ot Z86.711 PERSONAL HISTORY OF PULMONARY EMBOLISM 06/12/2018 ENMANUEL GUILLEN MD, Ot Z87.891 PERSONAL HISTORY OF NICOTINE DEPENDENCE 06/12/2018 ENMANUEL GUILLEN MD Ot Z95. 1 PRESENCE OF AORTOCORONARY BYPASS GRAFT 06/12/2018 ANTHONY FATIMA APRN Ot C80.1 MALIGNANT (PRIMARY) NEOPLASM, UNSPECIFIE 06/12/2018 ANTHONY FATIMA APRN Ot J44.9 CHRONIC OBSTRUCTIVE PULMONARY DISEASE, U 06/12/2018 ANTHONY FATIMA APRN Ot R91.1 SOLITARY PULMONARY NODULE 06/14/2018 ANTHONY FATIMA APRN Ot C80.1 MALIGNANT (PRIMARY) NEOPLASM, UNSPECIFIE 06/14/2018 ANTHONY FATIMA COAT PADDER Ot J44.9 CHRONIC OBSTRUCTIVE PULMONARY DISEASE, U 06/14/2018 ANTHONY FATIMA COAT PADDER Ot R91.1 SOLITARY PULMONARY NODULE 06/15/2018 ANTHONY FATIMA COAT PADDER Ot C80.1 MALIGNANT (PRIMARY) NEOPLASM, UNSPECIFIE 06/15/2018 ANTHONY FATIMA COAT PADDER Ot J44.9 CHRONIC OBSTRUCTIVE PULMONARY DISEASE, U 06/15/2018 ANTHONY FATIMA COAT PADDER Ot J84.9 INTERSTITIAL PULMONARY DISEASE, UNSPECIF 06/15/2018 ANTHONY FATIMA COAT PADDER Ot R91.8 OTHER NONSPECIFIC ABNORMAL FINDING OF [place] 06/15/2018 ANTHONY FATIMA COAT PADDER Ot G47.30 SLEEP APNEA, UNSPECIFIED 06/15/2018 ANTHONY FATIMA COAT PADDER Ot J18.9 PNEUMONIA, UNSPECIFIED ORGANISM 06/15/2018 ANTHONY FATIMA COAT PADDER Ot J30.9 ALLERGIC RHINITIS, UNSPECIFIED 06/15/2018 ANTHONY FATIMA COAT PADDER Ot J43.9 EMPHYSEMA, UNSPECIFIED 06/15/2018 ANTHONY FATIMA COAT PADDER Ot J96.20 ACUTE AND CHR RESP FAILURE, UNSP W HYPOX 06/15/2018 ANTHONY FATIMA COAT PADDER Ot R91.1 SOLITARY PULMONARY NODULE 06/15/2018 ANTHONY FATIMA COAT PADDER Ot Z87.891 PERSONAL HISTORY OF NICOTINE DEPENDENCE 06/15/2018 ANTHONY FATIMA COAT PADDER Ot Z98.890 OTHER SPECIFIED POSTPROCEDURAL STATES 06/20/2018 ANTHONY FATIMA APRN Ot G47.30 SLEEP APNEA, UNSPECIFIED 06/20/2018 ANTHONY FATIMA COAT PADDER Ot J18.9 PNEUMONIA, UNSPECIFIED ORGANISM 06/20/2018 ANTHONY FATIMA COAT PADDER Ot J30.9 ALLERGIC RHINITIS, UNSPECIFIED 06/20/2018 ANTHONY FATIMA COAT PADDER Ot J43.9 EMPHYSEMA, UNSPECIFIED 06/20/2018 ANTHONY FATIMA COAT PADDER Ot J96.20 ACUTE AND CHR RESP FAILURE, UNSP W HYPOX 06/20/2018 ANTHONY FATIMA COAT PADDER Ot R91.1 SOLITARY PULMONARY NODULE 06/20/2018 ANTHONY FATIMA COAT PADDER Ot Z87.891 PERSONAL HISTORY OF NICOTINE DEPENDENCE 06/20/2018 ANTHONY FATIMA COAT PADDER Ot Z98.890 OTHER SPECIFIED POSTPROCEDURAL STATES 07/03/2018 ANTHONY FATIMA COAT PADDER Ot C80.1 MALIGNANT (PRIMARY) NEOPLASM, UNSPECIFIE 07/03/2018 ANTHONY FATIMA COAT PADDER Ot J44.9 CHRONIC OBSTRUCTIVE PULMONARY DISEASE, U 07/03/2018 ANTHONY FATIMA COAT PADDER Ot R91.1 SOLITARY PULMONARY NODULE 07/05/2018 ANTHONY FATIMA COAT PADDER Ot C80.1 MALIGNANT (PRIMARY) NEOPLASM, UNSPECIFIE 07/05/2018 ANTHONY FATIMA COAT PADDER Ot J44.9 CHRONIC OBSTRUCTIVE PULMONARY DISEASE, U 07/05/2018 [place] COAT PADDER Ot J84.9 INTERSTITIAL PULMONARY DISEASE, UNSPECIF 07/05/2018 [place] COAT PADDER Ot R91.8 OTHER NONSPECIFIC ABNORMAL FINDING OF [place] 07/11/2018 ANTHONY FATIMA COAT PADDER Ot C80.1 MALIGNANT (PRIMARY) NEOPLASM, UNSPECIFIE 07/11/2018 ANTHONY FATIMA COAT PADDER Ot J44.9 CHRONIC OBSTRUCTIVE PULMONARY DISEASE, U 07/11/2018 ANTHONY FATIMA COAT PADDER Ot J84.9 INTERSTITIAL PULMONARY DISEASE, UNSPECIF 07/11/2018 ANTHONY FATIMA COAT PADDER Ot R91.8 OTHER NONSPECIFIC ABNORMAL FINDING OF [place] 07/16/2018 ENMANUEL GUILLEN MD Ot 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 9 HYPOTHYROIDISM, UNSPECIFIED 07/16/2018 ENMANUEL GUILLEN MD Ot E11. 9 TYPE 2 DIABETES MELLITUS WITHOUT COMPLIC 07/16/2018 ENMANUEL GUILLEN MD Ot E66. 01 MORBID (SEVERE) OBESITY DUE TO EXCESS CA 07/16/2018 ENMANUEL GUILLEN MD Ot E78. 5 HYPERLIPIDEMIA, UNSPECIFIED 07/16/2018 ENMANUEL GUILLEN MD Ot F10. 20 ALCOHOL DEPENDENCE, UNCOMPLICATED 07/16/2018 ENMANUEL GUILLEN MD Ot G47. 33 OBSTRUCTIVE SLEEP APNEA (ADULT) (PEDIATR 07/16/2018 ENMANUEL GUILLEN MD Ot I10 ESSENTIAL (PRIMARY) HYPERTENSION 07/16/2018 ENMANUEL GUILLEN MD, Ot I25. 10 ATHSCL HEART DISEASE OF [place] CORONARY 07/16/2018 ENMANUEL GUILLEN MD, Ot I25. 2 OLD MYOCARDIAL INFARCTION 07/16/2018 ENMANUEL GUILLEN MD, Ot J43. 9 EMPHYSEMA, UNSPECIFIED 07/16/2018 ENMANUEL GUILLEN MD, Ot K21. 9 GASTRO-ESOPHAGEAL REFLUX DISEASE WITHOUT 07/16/2018 ENMANUEL GUILLEN MD, Ot K44. 9 DIAPHRAGMATIC HERNIA WITHOUT OBSTRUCTION 07/16/2018 ENMANUEL GUILLEN MD, Ot K59. 00 CONSTIPATION, UNSPECIFIED 07/16/2018 ENMANUEL GUILLEN MD, Ot Z68. 39 BODY MASS INDEX (BMI) 39.0-39.9, ADULT 07/16/2018 ENMANUEL GUILLEN MD, Ot Z79. 4 FPC (CURRENT) USE OF INSULIN 07/16/2018 ENMANUEL GUILLEN MD, Ot Z79. 82 [facility] (CURRENT) USE OF ASPIRIN 07/16/2018 ENMANUEL GUILLEN MD, Ot Z79.899 OTHER PROJECT MANAGEMENT INTERN (CURRENT) DRUG THERAPY 07/16/2018 ENMANUEL GUILLEN MD, Ot Z86.711 PERSONAL HISTORY OF PULMONARY EMBOLISM 07/16/2018 ENMANUEL GUILLEN MD, Ot Z87.891 PERSONAL HISTORY OF NICOTINE DEPENDENCE 07/16/2018 ENMANUEL GUILLEN MD, Ot Z95. 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 9 HYPOTHYROIDISM, UNSPECIFIED 07/19/2018 ENMANUEL GUILLEN MD, Ot E11. 9 TYPE 2 DIABETES MELLITUS WITHOUT COMPLIC 07/19/2018 ENMANUEL GUILLEN MD, Ot E66. 01 MORBID (SEVERE) OBESITY DUE TO EXCESS CA 07/19/2018 ENMANUEL GUILLEN MD, Ot E78. 5 HYPERLIPIDEMIA, UNSPECIFIED 07/19/2018 ENMANUEL GUILLEN MD, Ot F10. 20 ALCOHOL DEPENDENCE, UNCOMPLICATED 07/19/2018 ENMANUEL GUILLEN MD, Ot G47. 33 OBSTRUCTIVE SLEEP APNEA (ADULT) (PEDIATR 07/19/2018 XUN MD, LINDA-LYNETTE Ot I10 ESSENTIAL (PRIMARY) HYPERTENSION 07/19/2018 ENMANUEL GUILLEN MD, Ot I25. 10 ATHSCL HEART DISEASE OF [place] CORONARY 07/19/2018 ENMANUEL GUILLEN MD, Ot I25. 2 OLD MYOCARDIAL INFARCTION 07/19/2018 ENMANUEL GUILLEN MD, Ot J43. 9 EMPHYSEMA, UNSPECIFIED 07/19/2018 ENMANUEL GUILLEN MD, Ot K21. 9 GASTRO-ESOPHAGEAL REFLUX DISEASE WITHOUT 07/19/2018 ENMANUEL GUILLEN MD, Ot K44. 9 DIAPHRAGMATIC HERNIA WITHOUT OBSTRUCTION 07/19/2018 ENMANUEL GUILLEN MD, Ot K59. 00 CONSTIPATION, UNSPECIFIED 07/19/2018 ENMANUEL GUILLEN MD, Ot Z68. 39 BODY MASS INDEX (BMI) 39.0-39.9, ADULT 07/19/2018 ENMANUEL GUILLEN MD, Ot Z79. 4 FPC (CURRENT) USE OF INSULIN 07/19/2018 ENMANUEL GUILLEN MD, Ot Z79. 82 FPC (CURRENT) USE OF ASPIRIN 07/19/2018 ENMANUEL GUILLEN MD, Ot Z79.899 OTHER PROJECT MANAGEMENT INTERN (CURRENT) DRUG THERAPY 07/19/2018 ENMANUEL GUILLEN MD, Ot Z86.711 PERSONAL HISTORY OF PULMONARY EMBOLISM 07/19/2018 ENMANUEL GUILLEN MD, Ot Z87.891 PERSONAL HISTORY OF NICOTINE DEPENDENCE 07/19/2018 ENMANUEL GUILLEN MD, Ot Z95. 1 PRESENCE OF AORTOCORONARY BYPASS GRAFT 07/25/2018 GIO WATERS, FLORES Ho Ot Z01.818 ENCOUNTER FOR OTHER PREPROCEDURAL EXAMIN 07/31/2018 GIO WATERS, FLORES Ho Ot E11.40 TYPE 2 DIABETES MELLITUS WITH DIABETIC N 07/31/2018 GIO WATERS, FLORES Ho Ot E11.69 TYPE 2 DIABETES MELLITUS WITH OTHER SPEC 07/31/2018 GIO WATERS, FLORES Ho Ot G47.33 OBSTRUCTIVE SLEEP APNEA (ADULT) (PEDIATR 07/31/2018 GIO WATERS, FLORES Ho Ot I11.0 HYPERTENSIVE HEART DISEASE WITH HEART FA 07/31/2018 GIO WATERS, FLORES Ho Ot I25.10 ATHSCL HEART DISEASE OF [place] CORONARY 07/31/2018 GIO WATERS, FLORES Ho Ot I50.9 HEART FAILURE, UNSPECIFIED 07/31/2018 GIO WATERS, FLORES P Ot J44.9 CHRONIC OBSTRUCTIVE PULMONARY DISEASE, U 07/31/2018 POWERS DPIrene, FLORES Ho Ot K21.9 GASTRO-ESOPHAGEAL REFLUX DISEASE WITHOUT 07/31/2018 POWERS DPIrene, FLORES Ho Ot M20.41 OTHER HAMMER TOE(S) (ACQUIRED), RIGHT FO 07/31/2018 GIO WATERS, FLORES Ho Ot M86.9 OSTEOMYELITIS, UNSPECIFIED 07/31/2018 GIO WATERS, FLORES Ho Ot Z79.4 PROJECT MANAGEMENT INTERN (CURRENT) USE OF INSULIN 07/31/2018 GIO DPIrene, FLORES Ho Ot Z79.82 PROJECT MANAGEMENT INTERN (CURRENT) USE OF ASPIRIN 07/31/2018 GIO DPIrene, FLORES Ho Ot Z79.899 OTHER PROJECT MANAGEMENT INTERN (CURRENT) DRUG THERAPY 07/31/2018 GIO DPIrene, FLORES Ho Ot Z95.1 PRESENCE OF AORTOCORONARY BYPASS GRAFT 08/03/2018 FLORES POWERS DPM Ot E11.40 TYPE 2 DIABETES MELLITUS WITH DIABETIC N 08/03/2018 FLORES POWERS DPM Ot E11.69 TYPE 2 DIABETES MELLITUS WITH OTHER SPEC 08/03/2018 FLORES POWERS DPM Ot G47.33 OBSTRUCTIVE SLEEP APNEA (ADULT) (PEDIATR 08/03/2018 GIO DPFLORES Bonilla Ot I11.0 HYPERTENSIVE HEART DISEASE WITH HEART FA 08/03/2018 FLORES POWERS DPM Ot I25.10 ATHSCL HEART DISEASE OF [place] CORONARY 08/03/2018 GIO WATERS, FLORES Ho Ot I50.9 HEART FAILURE, UNSPECIFIED 08/03/2018 GIO WATERS, FLORES Ho Ot J44.9 CHRONIC OBSTRUCTIVE PULMONARY DISEASE, U 08/03/2018 GIO WATERS, FLORES Ho Ot K21.9 GASTRO-ESOPHAGEAL REFLUX DISEASE WITHOUT 08/03/2018 POWERS DPIrene, FLORES Ho Ot M20.41 OTHER HAMMER TOE(S) (ACQUIRED), RIGHT FO 08/03/2018 GIO DPIrene, FLORES Ho Ot M86.9 OSTEOMYELITIS, UNSPECIFIED 08/03/2018 POWERS DPIrene, FLORES Ho Ot Z79.4 FPC (CURRENT) USE OF INSULIN 08/03/2018 GIO DPIrene, FLORES Ho Ot Z79.82 PROJECT MANAGEMENT INTERN (CURRENT) USE OF ASPIRIN 08/03/2018 GIO DPIrene, FLORES Ho Ot Z79.899 OTHER PROJECT MANAGEMENT INTERN (CURRENT) DRUG THERAPY 08/03/2018 POWERS DPM, FLORES Ho Ot Z95.1 PRESENCE OF AORTOCORONARY BYPASS GRAFT 08/03/2018 GIO WATERS, FLORES Ho Ot E11.40 TYPE 2 DIABETES MELLITUS WITH DIABETIC N 08/03/2018 GIO DPM, FLORES Ho Ot E11.69 TYPE 2 DIABETES MELLITUS WITH OTHER SPEC 08/03/2018 GIO DPIrene, FLORES Ho Ot G47.33 OBSTRUCTIVE SLEEP APNEA (ADULT) (PEDIATR 08/03/2018 GIO DPM, FLORES Ho Ot I11.0 HYPERTENSIVE HEART DISEASE WITH HEART FA 08/03/2018 GIO DPM, FLORES Ho Ot I25.10 ATHSCL HEART DISEASE OF [place] CORONARY 08/03/2018 GIO SOTOMAYORM, FLORES Ho Ot I50.9 HEART FAILURE, UNSPECIFIED 08/03/2018 GIO SOTOMAYORM, FLORES Ho Ot J44.9 CHRONIC OBSTRUCTIVE PULMONARY DISEASE, U 08/03/2018 GIO WATERS, FLORES Ho Ot K21.9 GASTRO-ESOPHAGEAL REFLUX DISEASE WITHOUT 08/03/2018 GIO WATERS, FLORES Ho Ot M20.41 OTHER HAMMER TOE(S) (ACQUIRED), RIGHT FO 08/03/2018 GIO SOTOMAYORM, FLORES Ho Ot M86.9 OSTEOMYELITIS, UNSPECIFIED 08/03/2018 GIO DPM, FLORES Ho Ot Z79.4 FPC (CURRENT) USE OF INSULIN 08/03/2018 GIO WATERS, FLORES Ho Ot Z79.82 PROJECT MANAGEMENT INTERN (CURRENT) USE OF ASPIRIN 08/03/2018 GIO WATERS, FLORES Ho Ot Z79.899 OTHER PROJECT MANAGEMENT INTERN (CURRENT) DRUG THERAPY 08/03/2018 GIO WATERS, FLORES Ho Ot Z95.1 PRESENCE OF AORTOCORONARY BYPASS GRAFT 08/23/2018 ENMANUEL GUILLEN MD, Ot C34. 11 MALIGNANT NEOPLASM OF UPPER LOBE, RIGHT 08/23/2018 ENMANUEL GUILLEN MD, Ot D61.818 OTHER PANCYTOPENIA 08/23/2018 ENMANUEL GUILLEN MD, Ot E03. 9 HYPOTHYROIDISM, UNSPECIFIED 08/23/2018 ENMANUEL GUILLEN MD, Ot E11. 9 TYPE 2 DIABETES MELLITUS WITHOUT COMPLIC 08/23/2018 ENMANUEL GUILLEN MD, Ot E66. 01 MORBID (SEVERE) OBESITY DUE TO EXCESS CA 08/23/2018 ENMANUEL GUILLEN MD, Ot E78. 5 HYPERLIPIDEMIA, UNSPECIFIED 08/23/2018 ENMANUEL GUILLEN MD, Ot F10. 20 ALCOHOL DEPENDENCE, UNCOMPLICATED 08/23/2018 ENMANUEL GUILLEN MD, Ot G47. 33 OBSTRUCTIVE SLEEP APNEA (ADULT) (PEDIATR 08/23/2018 ENMANUEL GUILLEN MD, Ot I10 ESSENTIAL (PRIMARY) HYPERTENSION 08/23/2018 ENMANUEL GUILLEN MD, Ot I25. 10 ATHSCL HEART DISEASE OF [place] CORONARY 08/23/2018 ENMANUEL GUILLEN MD, Ot I25. 2 OLD MYOCARDIAL INFARCTION 08/23/2018 ENMANUEL GUILLEN MD, Ot J43. 9 EMPHYSEMA, UNSPECIFIED 08/23/2018 ENMANUEL GUILLEN MD, Ot K21. 9 GASTRO-ESOPHAGEAL REFLUX DISEASE WITHOUT 08/23/2018 ENMANUEL GUILLEN MD, Ot K44. 9 DIAPHRAGMATIC HERNIA WITHOUT OBSTRUCTION 08/23/2018 ENMANUEL GUILLEN MD, Ot K59. 00 CONSTIPATION, UNSPECIFIED 08/23/2018 ENMANUEL GUILLEN MD, Ot Z68. 39 BODY MASS INDEX (BMI) 39.0-39.9, ADULT 08/23/2018 ENMANUEL GUILLEN MD, Ot Z79. 4 PROJECT MANAGEMENT INTERN (CURRENT) USE OF INSULIN 08/23/2018 ENMANUEL GUILLEN MD, Ot Z79. 82 PROJECT MANAGEMENT INTERN (CURRENT) USE OF ASPIRIN 08/23/2018 ENMANUEL GUILLEN MD, Ot Z79.899 OTHER PROJECT MANAGEMENT INTERN (CURRENT) DRUG THERAPY 08/23/2018 ENMANUEL GUILLEN MD, Ot Z86.711 PERSONAL HISTORY OF PULMONARY EMBOLISM 08/23/2018 ENMANUEL GUILLEN MD, Ot Z87.891 PERSONAL HISTORY OF NICOTINE DEPENDENCE 08/23/2018 ENMANUEL GUILLEN MD, Ot Z95. 1 PRESENCE OF AORTOCORONARY BYPASS GRAFT 09/11/2018 ENMANUEL GUILLEN MD, Ot C34. 11 MALIGNANT NEOPLASM OF UPPER LOBE, RIGHT 09/11/2018 ENMANUEL GUILLEN MD, Ot D61.818 OTHER PANCYTOPENIA 09/11/2018 ENMANUEL GUILLEN MD, Ot E03. 9 HYPOTHYROIDISM, UNSPECIFIED 09/11/2018 ENMANUEL GUILLEN MD, Ot E11. 9 TYPE 2 DIABETES MELLITUS WITHOUT COMPLIC 09/11/2018 ENMANUEL GUILLEN MD, Ot E66. 01 MORBID (SEVERE) OBESITY DUE TO EXCESS CA 09/11/2018 XUN MD, LINDA-LYNETTE Ot E78. 5 HYPERLIPIDEMIA, UNSPECIFIED 09/11/2018 ENMANUEL GUILLEN MD, Ot F10. 20 ALCOHOL DEPENDENCE, UNCOMPLICATED 09/11/2018 ENMANUEL GUILLEN MD, Ot G47. 33 OBSTRUCTIVE SLEEP APNEA (ADULT) (PEDIATR 09/11/2018 ENMANUEL GUILLEN MD, Ot I10 ESSENTIAL (PRIMARY) HYPERTENSION 09/11/2018 ENMANUEL GUILLEN MD, Ot I25. 10 ATHSCL HEART DISEASE OF [place] CORONARY 09/11/2018 ENMANUEL GUILLEN MD, Ot I25. 2 OLD MYOCARDIAL INFARCTION 09/11/2018 ENMANUEL GUILLEN MD, Ot J43. 9 EMPHYSEMA, UNSPECIFIED 09/11/2018 ENMANUEL GUILLEN MD, Ot K21. 9 GASTRO-ESOPHAGEAL REFLUX DISEASE WITHOUT 09/11/2018 ENMANUEL GUILLEN MD, Ot K44. 9 DIAPHRAGMATIC HERNIA WITHOUT OBSTRUCTION 09/11/2018 ENMANUEL GUILLEN MD, Ot K59. 00 CONSTIPATION, UNSPECIFIED 09/11/2018 ENMANUEL GUILLEN MD, Ot Z68. 39 BODY MASS INDEX (BMI) 39.0-39.9, ADULT 09/11/2018 ENMANUEL GUILLEN MD Ot Z79. 4 FPC (CURRENT) USE OF INSULIN 09/11/2018 ENMANUEL GUILLEN MD, Ot Z79. 82 FPC (CURRENT) USE OF ASPIRIN 09/11/2018 ENMANUEL GUILLEN MD, Ot Z79.899 OTHER FPC (CURRENT) DRUG THERAPY 09/11/2018 ENMANUEL GUILLEN MD, Ot Z86.711 PERSONAL HISTORY OF PULMONARY EMBOLISM 09/11/2018 ENMANUEL GUILLEN MD, Ot Z87.891 PERSONAL HISTORY OF NICOTINE DEPENDENCE 09/11/2018 ENMANUEL GUILLEN MD Ot Z95. 1 PRESENCE OF AORTOCORONARY BYPASS GRAFT 09/24/2018 ANTHONY FATIMA APRN Ot C80.1 MALIGNANT (PRIMARY) NEOPLASM, UNSPECIFIE 09/24/2018 ANTHONY FATIMA APRN Ot G47.33 OBSTRUCTIVE SLEEP APNEA (ADULT) (PEDIATR 09/24/2018 ANTHONY FATIMA APRN Ot J30.9 ALLERGIC RHINITIS, UNSPECIFIED 09/24/2018 ANTHONY FATIMA APRN Ot J44.9 CHRONIC OBSTRUCTIVE PULMONARY DISEASE, U 09/24/2018 ANTHONY FATIMA APRN Ot J84.9 INTERSTITIAL PULMONARY DISEASE, UNSPECIF 09/24/2018 ANTHONY FATIMA APRN Ot J96.20 ACUTE AND CHR RESP FAILURE, UNSP W HYPOX 09/24/2018 ANTHONY FATIMA APRN Ot Z87.891 PERSONAL HISTORY OF NICOTINE DEPENDENCE 09/24/2018 ANTHONY FATIMA APRN Ot Z95.1 PRESENCE OF AORTOCORONARY BYPASS GRAFT 09/24/2018 ANTHONY FATIMA APRN Ot Z98.890 OTHER SPECIFIED POSTPROCEDURAL STATES 09/28/2018 ENMANUEL GUILLEN MD Ot R79. 1 ABNORMAL COAGULATION PROFILE 09/28/2018 ENMANUEL GUILLEN MD Ot C80. 1 MALIGNANT (PRIMARY) NEOPLASM, UNSPECIFIE 09/28/2018 ENMANUEL GUILLEN MD Ot J93. 9 PNEUMOTHORAX, UNSPECIFIED 09/28/2018 ENMANUEL GUILLEN MD Ot Z98.890 OTHER SPECIFIED POSTPROCEDURAL STATES 09/28/2018 ENMANUEL GUILLEN MD Ot R79. 1 ABNORMAL COAGULATION PROFILE 10/02/2018 ENMANUEL GUILLEN MD Ot C80. 1 MALIGNANT (PRIMARY) NEOPLASM, UNSPECIFIE 10/02/2018 ENMANUEL GUILLEN MD Ot J93. 9 PNEUMOTHORAX, UNSPECIFIED 10/02/2018 ENMANUEL GUILLEN MD Ot Z98.890 OTHER SPECIFIED POSTPROCEDURAL STATES 10/13/2018 GIO DPIrene, FLORES Ho Ot E11.40 TYPE 2 DIABETES MELLITUS WITH DIABETIC N 10/13/2018 GIO DPIrene, FLORES Ho Ot E11.69 TYPE 2 DIABETES MELLITUS WITH OTHER SPEC 10/13/2018 GIO WATERS, FLORES Ho Ot G47.33 OBSTRUCTIVE SLEEP APNEA (ADULT) (PEDIATR 10/13/2018 GIO DPIrene, FLORES Ho Ot I11.0 HYPERTENSIVE HEART DISEASE WITH HEART FA 10/13/2018 GIO WATERS, FLORES Ho Ot I25.10 ATHSCL HEART DISEASE OF [place] CORONARY 10/13/2018 GIO WATERS, FLORES Ho Ot I50.9 HEART FAILURE, UNSPECIFIED 10/13/2018 GIO WATERS, FLORES Ho Ot J44.9 CHRONIC OBSTRUCTIVE PULMONARY DISEASE, U 10/13/2018 GIO WATERS, FLORES Ho Ot K21.9 GASTRO-ESOPHAGEAL REFLUX DISEASE WITHOUT 10/13/2018 GIO WATERS, FLORES Ho Ot M20.41 OTHER HAMMER TOE(S) (ACQUIRED), RIGHT FO 10/13/2018 GIO DPIrene, FLORES Ho Ot M86.9 OSTEOMYELITIS, UNSPECIFIED 10/13/2018 GIO WATERS, FLORES Ho Ot Z79.4 PROJECT MANAGEMENT INTERN (CURRENT) USE OF INSULIN 10/13/2018 GIO WATERS, FLORES Ho Ot Z79.82 FPC (CURRENT) USE OF ASPIRIN 10/13/2018 GIO WATERS, FLORES Ho Ot Z79.899 OTHER PROJECT MANAGEMENT INTERN (CURRENT) DRUG THERAPY 10/13/2018 GIO WATERS, FLORES Ho Ot Z95.1 PRESENCE OF AORTOCORONARY BYPASS GRAFT 10/31/2018 ENMANUEL GUILLEN MD, Ot C34. 11 MALIGNANT NEOPLASM OF UPPER LOBE, RIGHT 10/31/2018 ENMANUEL GUILLEN MD, Ot D61.818 OTHER PANCYTOPENIA 10/31/2018 ENMANUEL GUILLEN MD, Ot E03. 9 HYPOTHYROIDISM, UNSPECIFIED 10/31/2018 ENMANUEL GUILLEN MD, Ot E11. 9 TYPE 2 DIABETES MELLITUS WITHOUT COMPLIC 10/31/2018 ENMANUEL GUILLEN MD, Ot E66. 01 MORBID (SEVERE) OBESITY DUE TO EXCESS CA 10/31/2018 ENMANUEL GUILLEN MD, Ot E78. 5 HYPERLIPIDEMIA, UNSPECIFIED 10/31/2018 ENMANUEL GUILLEN MD, Ot F10. 20 ALCOHOL DEPENDENCE, UNCOMPLICATED 10/31/2018 ENMANUEL GUILLEN MD, Ot G47. 33 OBSTRUCTIVE SLEEP APNEA (ADULT) (PEDIATR 10/31/2018 ENMANUEL GUILLEN MD, Ot I10 ESSENTIAL (PRIMARY) HYPERTENSION 10/31/2018 ENMANUEL GUILLEN MD, Ot I25. 10 ATHSCL HEART DISEASE OF [place] CORONARY 10/31/2018 ENMANUEL GUILLEN MD, Ot I25. 2 OLD MYOCARDIAL INFARCTION 10/31/2018 ENMANUEL GUILLEN MD, Ot J43. 9 EMPHYSEMA, UNSPECIFIED 10/31/2018 ENMANUEL GUILLEN MD, Ot K21. 9 GASTRO-ESOPHAGEAL REFLUX DISEASE WITHOUT 10/31/2018 ENMANUEL GUILLEN MD, Ot K44. 9 DIAPHRAGMATIC HERNIA WITHOUT OBSTRUCTION 10/31/2018 ENMANUEL GUILLEN MD, Ot K59. 00 CONSTIPATION, UNSPECIFIED 10/31/2018 ENMANUEL GUILLEN MD, Ot Z68. 39 BODY MASS INDEX (BMI) 39.0-39.9, ADULT 10/31/2018 ENMANUEL GUILLEN MD, Ot Z79. 4 FPC (CURRENT) USE OF INSULIN 10/31/2018 ENMANUEL GUILLEN MD, Ot Z79. 82 FPC (CURRENT) USE OF ASPIRIN 10/31/2018 ENMANUEL GUILLEN MD, Ot Z79.899 OTHER FPC (CURRENT) DRUG THERAPY 10/31/2018 ENMANUEL GUILLEN MD, Ot Z86.711 PERSONAL HISTORY OF PULMONARY EMBOLISM 10/31/2018 ENMANUEL GUILLEN MD, Ot Z87.891 PERSONAL HISTORY OF NICOTINE DEPENDENCE 10/31/2018 ENMANUEL GUILLEN MD, Ot Z95. 1 PRESENCE OF AORTOCORONARY BYPASS GRAFT 11/01/2018 ENMANUEL GUILLEN MD, Ot C34. 11 MALIGNANT NEOPLASM OF UPPER LOBE, RIGHT 11/01/2018 ENMANUEL GUILLEN MD, Ot D61.818 OTHER PANCYTOPENIA 11/01/2018 ENMANUEL GUILLEN MD, Ot E03. 9 HYPOTHYROIDISM, UNSPECIFIED 11/01/2018 ENMANUEL GUILLEN MD, Ot E11. 9 TYPE 2 DIABETES MELLITUS WITHOUT COMPLIC 11/01/2018 ENMANUEL GUILLEN MD, Ot E66. 01 MORBID (SEVERE) OBESITY DUE TO EXCESS CA 11/01/2018 ENMANUEL GUILLEN MD, Ot E78. 5 HYPERLIPIDEMIA, UNSPECIFIED 11/01/2018 ENMANUEL GUILLEN MD, Ot F10. 20 ALCOHOL DEPENDENCE, UNCOMPLICATED 11/01/2018 ENMANUEL GUILLEN MD, Ot G47. 33 OBSTRUCTIVE SLEEP APNEA (ADULT) (PEDIATR 11/01/2018 ENMANUEL GUILLEN MD, Ot I10 ESSENTIAL (PRIMARY) HYPERTENSION 11/01/2018 ENMANUEL GUILLEN MD, Ot I25. 10 ATHSCL HEART DISEASE OF [place] CORONARY 11/01/2018 ENMANUEL GUILLEN MD, Ot I25. 2 OLD MYOCARDIAL INFARCTION 11/01/2018 ENMANUEL GUILLEN MD, Ot J43. 9 EMPHYSEMA, UNSPECIFIED 11/01/2018 ENMANUEL GUILLEN MD, Ot K21. 9 GASTRO-ESOPHAGEAL REFLUX DISEASE WITHOUT 11/01/2018 ENMANUEL GUILLEN MD, Ot K44. 9 DIAPHRAGMATIC HERNIA WITHOUT OBSTRUCTION 11/01/2018 ENMANUEL GUILLEN MD, Ot K59. 00 CONSTIPATION, UNSPECIFIED 11/01/2018 ENMANUEL GUILLEN MD, Ot Z68. 39 BODY MASS INDEX (BMI) 39.0-39.9, ADULT 11/01/2018 ENMANUEL GUILLEN MD, Ot Z79. 4 PROJECT MANAGEMENT INTERN (CURRENT) USE OF INSULIN 11/01/2018 ENMANUEL GUILLEN MD, Ot Z79. 82 PROJECT MANAGEMENT INTERN (CURRENT) USE OF ASPIRIN 11/01/2018 ENMANUEL GUILLEN MD, Ot Z79.899 OTHER FPC (CURRENT) DRUG THERAPY 11/01/2018 ENMANUEL GUILLEN MD, Ot Z86.711 PERSONAL HISTORY OF PULMONARY EMBOLISM 11/01/2018 ENMANUEL GUILLEN MD, Ot Z87.891 PERSONAL HISTORY OF NICOTINE DEPENDENCE 11/01/2018 ENMANUEL GUILLEN MD Ot Z95. 1 PRESENCE OF AORTOCORONARY BYPASS GRAFT 12/20/2018 ANTHONY FATIMA APRN Ot J30.9 ALLERGIC RHINITIS, UNSPECIFIED 12/20/2018 ANTHONY FATIMA APRN Ot J43.9 EMPHYSEMA, UNSPECIFIED 12/20/2018 ANTHONY FATIMA APRN Ot J84.9 INTERSTITIAL PULMONARY DISEASE, UNSPECIF 12/20/2018 ANTHONY FATIMA COAT PADDER Ot J96.20 ACUTE AND CHR RESP FAILURE, UNSP W HYPOX 12/20/2018 ANTHONY FATIMA APRN Ot R91.8 OTHER NONSPECIFIC ABNORMAL FINDING OF ALEKSEY 12/20/2018 ANTHONY FATIMA APRN Ot R93.89 ABNORMAL FINDINGS ON DX IMAGING OF OTH B 12/20/2018 ANTHONY FATIMA COAT PADDER Ot Z85.118 PERSONAL HISTORY OF MALIGNANT NEOPLASM O 12/20/2018 ANTHONY FATIMA APRN Ot Z87.891 PERSONAL HISTORY OF NICOTINE DEPENDENCE 01/08/2019 ANTHONY FATIMA APRN Ot J30.9 ALLERGIC RHINITIS, UNSPECIFIED 01/08/2019 ANTHONY FATIMA APRN Ot J43.9 EMPHYSEMA, UNSPECIFIED 01/08/2019 ANTHONY FATIMA APRN Ot J84.9 INTERSTITIAL PULMONARY DISEASE, UNSPECIF 01/08/2019 ANTHONY FATIMA COAT PADDER Ot J96.20 ACUTE AND CHR RESP FAILURE, UNSP W HYPOX 01/08/2019 ANTHONY FATIMA COAT PADDER Ot R91.8 OTHER NONSPECIFIC ABNORMAL FINDING OF [place] 01/08/2019 ANTHONY FATIMA COAT PADDER Ot R93.89 ABNORMAL FINDINGS ON DX IMAGING OF OTH B 01/08/2019 ANTHONY FATIMA APRN Ot Z85.118 PERSONAL HISTORY OF MALIGNANT NEOPLASM O 01/08/2019 ANTHONY FATIMA APRN Ot Z87.891 PERSONAL HISTORY OF NICOTINE DEPENDENCE 03/22/2019 Ot 244.9 HYPO THYROIDISM NOS 03/22/2019 Ot 250.00 MIKHAIL B WILFREDO WO COMPL, TYPE II OR UNSPEC TY 03/22/2019 Ot 285.9 ANEM IA NOS 03/22/2019 Ot 414.00 COR ON ATHEROSCLER NOS TYPE VESSEL, NATIV 03/22/2019 Ot V12.55 PER DARREN HISTORY OF PULMONARY EMBOLISM 03/22/2019 Ot 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 03/22/2019 Ot V58.66 TREV G-TERM (CURRENT) USE OF ASPIRIN 03/22/2019 Ot V58.69 OTH MED,LT,CURRENT USE 03/22/2019 RAMILA SEGOVIA, PAULETTE Mccall Ot 789. 03 ABDOMINAL PAIN, RIGHT LOWER QUADRANT 03/22/2019 RAMILA SEGOVIA, PAULETTE R Ot 789. 03 ABDOMINAL PAIN, RIGHT LOWER QUADRANT 03/22/2019 ANASTACIA SEGOVIA, NHUNG Nichols Ot 272. 4 HYPERLIPIDEMIA NEC/NOS 03/22/2019 NHUNG GALAVIZ MD Ot 401. 9 HYPERTENSION NOS 03/22/2019 ANASTACIA SEGOVIA, NHUNG Nichols Ot 414. 00 CORON ATHEROSCLER NOS TYPE VESSEL, NATIV 03/22/2019 NHUNG GALAVIZ MD Ot 786. 50 CHEST PAIN NOS 03/22/2019 NHUNG GALAVIZ MD Ot 272. 4 HYPERLIPIDEMIA NEC/NOS 03/22/2019 NHUNG GALAVIZ MD Ot 401. 9 HYPERTENSION NOS 03/22/2019 ANASTACIA SEGOVIA, NHUNG Nichols Ot 414. 00 CORON ATHEROSCLER NOS TYPE VESSEL, NATIV 03/22/2019 NHUNG GALAVIZ MD Ot 786. 50 CHEST PAIN NOS 03/22/2019 VIRGILIO HARKINS DO Ot 414. 00 CORON ATHEROSCLER NOS TYPE VESSEL, NATIV 03/22/2019 VIRGILIO HARKINS DO Ot 496 CHR AIRWAY OBSTRUCT NEC 03/22/2019 VIRGILIO HARKINS DO Ot 530. 81 ESOPHAGEAL REFLUX 03/22/2019 VIRGILIO HARKINS DO Ot 780. 57 UNSPECIFIED SLEEP APNEA 03/22/2019 VIRGILIO HARKINS DO Ot 786. 09 RESPIRATORY ABNORM NEC 03/22/2019 ANTHONY FATIMA APRN Ot 414.00 CORON ATHEROSCLER NOS TYPE VESSEL, NATIV 03/22/2019 ANTHONY FATIMA APRN Ot 496 CHR AIRWAY OBSTRUCT NEC 03/22/2019 ANTHONY FATIMA APRN Ot 530.81 ESOPHAGEAL REFLUX 03/22/2019 ANTHONY FATIMA APRN Ot 780.57 UNSPECIFIED SLEEP APNEA 03/22/2019 ANTHONY FATIMA APRN Ot 786.09 RESPIRATORY ABNORM NEC 03/22/2019 ENMANUEL GUILLEN MD Ot D69. 6 THROMBOCYTOPENIA, UNSPECIFIED 03/22/2019 ENMANUEL GUILLEN MD Ot R16. 1 SPLENOMEGALY, NOT ELSEWHERE CLASSIFIED 03/22/2019 ENMANUEL GUILLEN MD Ot R91. 8 OTHER NONSPECIFIC ABNORMAL FINDING OF ALEKSEY 03/22/2019 ANTHONY FATIMA APRN Ot G47.30 SLEEP APNEA, UNSPECIFIED 03/22/2019 ANTHONY FATIMA APRN Ot J30.9 ALLERGIC RHINITIS, UNSPECIFIED 03/22/2019 ANTHONY FATIMA APRN Ot J44.9 CHRONIC OBSTRUCTIVE PULMONARY DISEASE, U 03/22/2019 ANTHONY FATIMA APRN Ot Z87.891 PERSONAL HISTORY OF NICOTINE DEPENDENCE 03/22/2019 ANTHONY FATIMA APRN Ot J44.9 CHRONIC OBSTRUCTIVE PULMONARY DISEASE, U 03/22/2019 ENMANUEL GUILLEN MD Ot D64. 9 ANEMIA, UNSPECIFIED 03/22/2019 NALDO ROMO Ot I65.23 OCCLUSION AND STENOSIS OF BILATERAL LABOY 03/22/2019 VIRGILIO HARKINS DO Ot G47. 30 SLEEP APNEA, UNSPECIFIED 03/22/2019 VIRGILIO HARKINS DO Ot J30. 9 ALLERGIC RHINITIS, UNSPECIFIED 03/22/2019 VIRGILIO HARKINS DO Ot J44. 9 CHRONIC OBSTRUCTIVE PULMONARY DISEASE, U 03/22/2019 VIRGILIO HARKINS DO Ot R06. 00 DYSPNEA, UNSPECIFIED 03/22/2019 VIRGILIO HARKINS DO Ot J44. 9 CHRONIC OBSTRUCTIVE PULMONARY DISEASE, U 03/22/2019 VIRGILIO HARKINS DO Ot R91. 1 SOLITARY PULMONARY NODULE 03/22/2019 Ot R91.1 DONOVAN TARY PULMONARY NODULE 03/22/2019 ANTHONY FATIMA APRN Ot J44.9 CHRONIC OBSTRUCTIVE PULMONARY DISEASE, U 03/22/2019 ANTHONY FATIMA APRN Ot J84.9 INTERSTITIAL PULMONARY DISEASE, UNSPECIF 03/22/2019 ANTHONY FATIMA APRN Ot J96.20 ACUTE AND CHR RESP FAILURE, UNSP W HYPOX 03/22/2019 ANTHONY FATIMA APRN Ot R91.1 SOLITARY PULMONARY NODULE 03/22/2019 NALDO ROMO Ot G47.30 SLEEP APNEA, UNSPECIFIED 03/22/2019 NALDO ROMO Ot I10 ESSENTIAL (PRIMARY) HYPERTENSION 03/22/2019 NALDO ROMO Ot I25.10 ATHSCL HEART DISEASE OF [place] CORONARY 03/22/2019 NALDO ROMO Ot K21.9 GASTRO-ESOPHAGEAL REFLUX DISEASE WITHOUT 03/22/2019 ANTHONY FATIMA APRN Ot J44.9 CHRONIC OBSTRUCTIVE PULMONARY DISEASE, U 03/22/2019 ANTHONY FATIMA APRN Ot J84.9 INTERSTITIAL PULMONARY DISEASE, UNSPECIF 03/22/2019 ANTHONY FATIMA APRN Ot R16.1 SPLENOMEGALY, NOT ELSEWHERE CLASSIFIED 03/22/2019 ANTHONY FATIMA COAT PADDER Ot R91.8 OTHER NONSPECIFIC ABNORMAL FINDING OF [place] 03/22/2019 ANTHONY FATIMA COAT PADDER Ot B96.5 PSEUDOMONAS (M[place]LEI) CAUSING DISEASES CL 03/22/2019 ANTHONY FATIMA COAT PADDER Ot B96.5 PSEUDOMONAS ([place]) CAUSING DISEASES CL 03/22/2019 ANTHONY FATIMA APRN Ot J44.9 CHRONIC OBSTRUCTIVE PULMONARY DISEASE, U 03/22/2019 ANTHONY FATIMA APRN Ot J96.20 ACUTE AND CHR RESP FAILURE, UNSP W HYPOX 03/22/2019 ANTHONY FTAIMA APRN Ot J98.4 OTHER DISORDERS OF LUNG 03/22/2019 VIRGILIO HARKINS DO Ot J43. 9 EMPHYSEMA, UNSPECIFIED 03/22/2019 VIRGILIO HARKINS DO Ot R91. 8 OTHER NONSPECIFIC ABNORMAL FINDING OF [place] 03/22/2019 VIRGILIO HARKINS DO Ot R94. 8 ABNORMAL RESULTS OF FUNCTION STUDIES OF 03/22/2019 ANTHONY FATIMA APRN Ot J43.9 EMPHYSEMA, UNSPECIFIED 03/22/2019 ANTHONY FATIMA APRN Ot J84.9 INTERSTITIAL PULMONARY DISEASE, UNSPECIF 03/22/2019 ANTHONY FATIMA APRN Ot J96.20 ACUTE AND CHR RESP FAILURE, UNSP W HYPOX 03/22/2019 ANTHONY FATIMA APRN Ot R91.1 SOLITARY PULMONARY NODULE 03/22/2019 ANTHONY FATIMA APRN Ot Z87.891 PERSONAL HISTORY OF NICOTINE DEPENDENCE 03/22/2019 NHUNG GALAVIZ MD Ot E11. 9 TYPE 2 DIABETES MELLITUS WITHOUT COMPLIC 03/22/2019 NHUNG GALAVIZ MD Ot E78. 5 HYPERLIPIDEMIA, UNSPECIFIED 03/22/2019 NHUNG GALAVIZ MD Ot F10. 20 ALCOHOL DEPENDENCE, UNCOMPLICATED 03/22/2019 NHUNG GALAVIZ MD Ot I25. 10 ATHSCL HEART DISEASE OF [place] CORONARY 03/22/2019 NHUNG GALAVIZ MD Ot J43. 9 EMPHYSEMA, UNSPECIFIED 03/22/2019 NHUNG GALAVIZ MD Ot J84. 9 INTERSTITIAL PULMONARY DISEASE, UNSPECIF 03/22/2019 NHUNG GALAVIZ MD Ot J96. 20 ACUTE AND CHR RESP FAILURE, UNSP W HYPOX 03/22/2019 NHUNG GALAVIZ MD Ot R91. 1 SOLITARY PULMONARY NODULE 03/22/2019 NHUNG GALAVIZ MD Ot Z87.891 PERSONAL HISTORY OF NICOTINE DEPENDENCE 03/22/2019 NHUNG GALAVIZ MD Ot E11. 9 TYPE 2 DIABETES MELLITUS WITHOUT COMPLIC 03/22/2019 NHUNG GALAVIZ MD Ot E78. 5 HYPERLIPIDEMIA, UNSPECIFIED 03/22/2019 NHUNG GALAVIZ MD Ot F10. 20 ALCOHOL DEPENDENCE, UNCOMPLICATED 03/22/2019 NHUNG GALAVIZ MD Ot I25. 10 ATHSCL HEART DISEASE OF [place] CORONARY 03/22/2019 NHUNG GALAVIZ MD Ot J44. 9 CHRONIC OBSTRUCTIVE PULMONARY DISEASE, U 03/22/2019 NHUNG GALAVIZ MD Ot J96. 20 ACUTE AND CHR RESP FAILURE, UNSP W HYPOX 03/22/2019 ENMANUEL GUILLEN MD Ot C34. 11 MALIGNANT NEOPLASM OF UPPER LOBE, RIGHT 03/22/2019 ENMANUEL GUILLEN MD Ot M89. 9 DISORDER OF BONE, UNSPECIFIED 03/22/2019 ANTHONY FATIMA APRN Ot G47.30 SLEEP APNEA, UNSPECIFIED 03/22/2019 ADINA FATIMAINE E COAT PADDER Ot J18.9 PNEUMONIA, UNSPECIFIED ORGANISM 03/22/2019 ANTHONY FATIMA E COAT PADDER Ot J30.9 ALLERGIC RHINITIS, UNSPECIFIED 03/22/2019 ADINA FATIMAINE E COAT PADDER Ot J43.9 EMPHYSEMA, UNSPECIFIED 03/22/2019 AKUA, ANTHONY E COAT PADDER Ot J96.20 ACUTE AND CHR RESP FAILURE, UNSP W HYPOX 03/22/2019 ADINA FATIMAINE E COAT PADDER Ot R91.1 SOLITARY PULMONARY NODULE 03/22/2019 ADINA FATIMAINE E COAT PADDER Ot Z87.891 PERSONAL HISTORY OF NICOTINE DEPENDENCE 03/22/2019 ADINA FATIMAINE E COAT PADDER Ot Z98.890 OTHER SPECIFIED POSTPROCEDURAL STATES 03/22/2019 ADINA FATIMAINE E COAT PADDER Ot C80.1 MALIGNANT (PRIMARY) NEOPLASM, UNSPECIFIE 03/22/2019 ADINA FATIMAINE E COAT PADDER Ot J44.9 CHRONIC OBSTRUCTIVE PULMONARY DISEASE, U 03/22/2019 ADINA FATIMAINE E COAT PADDER Ot J84.9 INTERSTITIAL PULMONARY DISEASE, UNSPECIF 03/22/2019 AKUA ANTHONY E COAT PADDER Ot R91.8 OTHER NONSPECIFIC ABNORMAL FINDING OF [place] 03/22/2019 ANTHONY FATIMA E COAT PADDER Ot C80.1 MALIGNANT (PRIMARY) NEOPLASM, UNSPECIFIE 03/22/2019 ADNIA FATIMAINE E COAT PADDER Ot J44.9 CHRONIC OBSTRUCTIVE PULMONARY DISEASE, U 03/22/2019 ADINA FATIMAINE E COAT PADDER Ot R91.1 SOLITARY PULMONARY NODULE 03/22/2019 ANTHONY FATIMA E COAT PADDER Ot C80.1 MALIGNANT (PRIMARY) NEOPLASM, UNSPECIFIE 03/22/2019 AKUA ANTHONY E COAT PADDER Ot G47.33 OBSTRUCTIVE SLEEP APNEA (ADULT) (PEDIATR 03/22/2019 ADINA FATIMAINE E COAT PADDER Ot J30.9 ALLERGIC RHINITIS, UNSPECIFIED 03/22/2019 ADINA FATIMAINE E COAT PADDER Ot J44.9 CHRONIC OBSTRUCTIVE PULMONARY DISEASE, U 03/22/2019 ADINA FATIMAINE E COAT PADDER Ot J84.9 INTERSTITIAL PULMONARY DISEASE, UNSPECIF 03/22/2019 ADINA FATIMAINE E COAT PADDER Ot J96.20 ACUTE AND CHR RESP FAILURE, UNSP W HYPOX 03/22/2019 ANTHONY FATIMA APRN Ot Z87.891 PERSONAL HISTORY OF NICOTINE DEPENDENCE 03/22/2019 ANTHONY FATIMA APRN Ot Z95.1 PRESENCE OF AORTOCORONARY BYPASS GRAFT 03/22/2019 ANTHONY FATIMA APRN Ot Z98.890 OTHER SPECIFIED POSTPROCEDURAL STATES 03/22/2019 ANTHONY FATIMA APRN Ot J30.9 ALLERGIC RHINITIS, UNSPECIFIED 03/22/2019 ANTHONY FATIMA APRN Ot J43.9 EMPHYSEMA, UNSPECIFIED 03/22/2019 ANTHONY FATIMA COAT PADDER Ot J84.9 INTERSTITIAL PULMONARY DISEASE, UNSPECIF 03/22/2019 ANTHONY FATIMA APRN Ot J96.20 ACUTE AND CHR RESP FAILURE, UNSP W HYPOX 03/22/2019 ANTHONY FATIMA APRN Ot R91.8 OTHER NONSPECIFIC ABNORMAL FINDING OF ALEKSEY 03/22/2019 ANTHONY FATIMA APRN Ot R93.89 ABNORMAL FINDINGS ON DX IMAGING OF OTH B 03/22/2019 ANTHONY FATIMA APRN Ot Z85.118 PERSONAL HISTORY OF MALIGNANT NEOPLASM O 03/22/2019 ANTHONY FATIMA APRN Ot Z87.891 PERSONAL HISTORY OF NICOTINE DEPENDENCE 04/01/2019 Ot 244.9 HYPO THYROIDISM NOS 04/01/2019 Ot 250.00 MIKHAIL B WILFREDO WO COMPL, TYPE II OR UNSPEC TY 04/01/2019 Ot 285.9 ANEM IA NOS 04/01/2019 Ot 414.00 COR ON ATHEROSCLER NOS TYPE VESSEL, NATIV 04/01/2019 Ot V12.55 PER DARREN HISTORY OF PULMONARY EMBOLISM 04/01/2019 Ot 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 04/01/2019 Ot V58.66 TREV G-TERM (CURRENT) USE OF ASPIRIN 04/01/2019 Ot V58.69 OTH MED,LT,CURRENT USE 04/01/2019 RAMILA SEGOVIA, PAULETTE Mccall Ot 789. 03 ABDOMINAL PAIN, RIGHT LOWER QUADRANT 04/01/2019 RAMILA SEGOVIA, PAULETTE Mccall Ot 789. 03 ABDOMINAL PAIN, RIGHT LOWER QUADRANT 04/01/2019 ANASTACIA SEGOVIA, NHUNG Nichols Ot 272. 4 HYPERLIPIDEMIA NEC/NOS 04/01/2019 NHUNG GALAVIZ MD Ot 401. 9 HYPERTENSION NOS 04/01/2019 NHUNG GALAVIZ MD Ot 414. 00 CORON ATHEROSCLER NOS TYPE VESSEL, NATIV 04/01/2019 ANASTACIA SEGOVIA, NHUNG Nichols Ot 786. 50 CHEST PAIN NOS 04/01/2019 ANASTACIA SEGOVIA, NHUNG Nichols Ot 272. 4 HYPERLIPIDEMIA NEC/NOS 04/01/2019 ANASTACIA SEGOVIA, NHUNG Nichols Ot 401. 9 HYPERTENSION NOS 04/01/2019 ANASTACIA SEGOVIA, NHUNG Nichols Ot 414. 00 CORON ATHEROSCLER NOS TYPE VESSEL, NATIV 04/01/2019 ANASTACIA SEGOVIA, NHUNG Nichols Ot 786. 50 CHEST PAIN NOS 04/01/2019 SHAHANA DO, VIRGILIO M Ot 414. 00 CORON ATHEROSCLER NOS TYPE VESSEL, NATIV 04/01/2019 SHAHANA DO, VIRGILIO M Ot 496 CHR AIRWAY OBSTRUCT NEC 04/01/2019 SHAHANA DO, VIRGILIO M Ot 530. 81 ESOPHAGEAL REFLUX 04/01/2019 SHAHANA DO, VIRGILIO M Ot 780. 57 UNSPECIFIED SLEEP APNEA 04/01/2019 SHAHANA DO, VIRGILIO M Ot 786. 09 RESPIRATORY ABNORM NEC 04/01/2019 ANTHONY FATIMA APRN Ot 414.00 CORON ATHEROSCLER NOS TYPE VESSEL, NATIV 04/01/2019 ANTHONY FATIMA COAT PADDER Ot 496 CHR AIRWAY OBSTRUCT NEC 04/01/2019 ANTHONY FATIMA APRN Ot 530.81 ESOPHAGEAL REFLUX 04/01/2019 ANTHONY FATIMA APRN Ot 780.57 UNSPECIFIED SLEEP APNEA 04/01/2019 ANTHONY FATIMA APRN Ot 786.09 RESPIRATORY ABNORM NEC 04/01/2019 MINDY SEGOVIA, ENMANUEL Ot D69. 6 THROMBOCYTOPENIA, UNSPECIFIED 04/01/2019 MINDY SEGOVIA, ENMANUEL Ot R16. 1 SPLENOMEGALY, NOT ELSEWHERE CLASSIFIED 04/01/2019 MINDY SEGOVIA, ENMANUEL Ot R91. 8 OTHER NONSPECIFIC ABNORMAL FINDING OF ALEKSEY 04/01/2019 ANTHONY FATIMA APRN Ot G47.30 SLEEP APNEA, UNSPECIFIED 04/01/2019 ANTHONY FATIMA APRN Ot J30.9 ALLERGIC RHINITIS, UNSPECIFIED 04/01/2019 ANTHONY FATIMA APRN Ot J44.9 CHRONIC OBSTRUCTIVE PULMONARY DISEASE, U 04/01/2019 ANTHONY FATIMA APRN Ot Z87.891 PERSONAL HISTORY OF NICOTINE DEPENDENCE 04/01/2019 ANTHONY FATIMA APRN Ot J44.9 CHRONIC OBSTRUCTIVE PULMONARY DISEASE, U 04/01/2019 MINDY SEGOVIA, ENMANUEL Ot D64. 9 ANEMIA, UNSPECIFIED 04/01/2019 NALDO ROMO Ot I65.23 OCCLUSION AND STENOSIS OF BILATERAL LABOY 04/01/2019 SHAHANA DO, VIRGILIO M Ot G47. 30 SLEEP APNEA, UNSPECIFIED 04/01/2019 SHAHANA DO, VIRGILIO M Ot J30. 9 ALLERGIC RHINITIS, UNSPECIFIED 04/01/2019 SHAHANA DO, VIRGILIO M Ot J44. 9 CHRONIC OBSTRUCTIVE PULMONARY DISEASE, U 04/01/2019 SHAHANA DO, VIRGILIO M Ot R06. 00 DYSPNEA, UNSPECIFIED 04/01/2019 SHAHANA DO, VIRGILIO M Ot J44. 9 CHRONIC OBSTRUCTIVE PULMONARY DISEASE, U 04/01/2019 SHAHANA DO, VIRGILIO M Ot R91. 1 SOLITARY PULMONARY NODULE 04/01/2019 Ot R91.1 DONOVAN TARY PULMONARY NODULE 04/01/2019 ANTHONY FATIMA APRN Ot J44.9 CHRONIC OBSTRUCTIVE PULMONARY DISEASE, U 04/01/2019 ANTHONY FATIMA APRN Ot J84.9 INTERSTITIAL PULMONARY DISEASE, UNSPECIF 04/01/2019 ANTHONY FATIMA APRN Ot J96.20 ACUTE AND CHR RESP FAILURE, UNSP W HYPOX 04/01/2019 ANTHONY FATIMA APRN Ot R91.1 SOLITARY PULMONARY NODULE 04/01/2019 NALDO ROMO Ot G47.30 SLEEP APNEA, UNSPECIFIED 04/01/2019 NALDO ROMO Ot I10 ESSENTIAL (PRIMARY) HYPERTENSION 04/01/2019 NALDO ROMO Ot I25.10 ATHSCL HEART DISEASE OF [place] CORONARY 04/01/2019 NALDO ROMO Ot K21.9 GASTRO-ESOPHAGEAL REFLUX DISEASE WITHOUT 04/01/2019 ANTHONY FATIMA APRN Ot J44.9 CHRONIC OBSTRUCTIVE PULMONARY DISEASE, U 04/01/2019 ANTHONY FATIMA APRN Ot J84.9 INTERSTITIAL PULMONARY DISEASE, UNSPECIF 04/01/2019 ANTHONY FATIMA APRN Ot R16.1 SPLENOMEGALY, NOT ELSEWHERE CLASSIFIED 04/01/2019 ANTHONY FATIMA APRN Ot R91.8 OTHER NONSPECIFIC ABNORMAL FINDING OF ALEKSEY 04/01/2019 ANTHONY FATIMA APRN Ot B96.5 PSEUDOMONAS ([place]) CAUSING DISEASES CL 04/01/2019 ANTHONY FATIMA APRN Ot B96.5 PSEUDOMONAS ([place]) CAUSING DISEASES CL 04/01/2019 ANTHONY FATIMA APRN Ot J44.9 CHRONIC OBSTRUCTIVE PULMONARY DISEASE, U 04/01/2019 ANTHONY FATIMA APRN Ot J96.20 ACUTE AND CHR RESP FAILURE, UNSP W HYPOX 04/01/2019 ANTHONY FATIMA APRN Ot J98.4 OTHER DISORDERS OF LUNG 04/01/2019 VIRGILIO HAKRINS DO Ot J43. 9 EMPHYSEMA, UNSPECIFIED 04/01/2019 SHAHANA DOSIMAVIRGILIO M Ot R91. 8 OTHER NONSPECIFIC ABNORMAL FINDING OF [place] 04/01/2019 VIRGILIO HARKINS DO Ot R94. 8 ABNORMAL RESULTS OF FUNCTION STUDIES OF 04/01/2019 ANTHONY FATIMA APRN Ot J43.9 EMPHYSEMA, UNSPECIFIED 04/01/2019 ANTHONY FATIMA APRN Ot J84.9 INTERSTITIAL PULMONARY DISEASE, UNSPECIF 04/01/2019 ANTHONY FATIMA APRN Ot J96.20 ACUTE AND CHR RESP FAILURE, UNSP W HYPOX 04/01/2019 ANTHONY FATIMA APRN Ot R91.1 SOLITARY PULMONARY NODULE 04/01/2019 ANTHONY FATIMA APRN Ot Z87.891 PERSONAL HISTORY OF NICOTINE DEPENDENCE 04/01/2019 NHUNG GALAVIZ MD Ot E11. 9 TYPE 2 DIABETES MELLITUS WITHOUT COMPLIC 04/01/2019 NHUNG GALAVIZ MD Ot E78. 5 HYPERLIPIDEMIA, UNSPECIFIED 04/01/2019 NHUNG GALAVIZ MD Ot F10. 20 ALCOHOL DEPENDENCE, UNCOMPLICATED 04/01/2019 NHUNG GALAVIZ MD Ot I25. 10 ATHSCL HEART DISEASE OF [place] CORONARY 04/01/2019 NHUNG GALAVIZ MD Ot J43. 9 EMPHYSEMA, UNSPECIFIED 04/01/2019 NHUNG GALAVIZ MD Ot J84. 9 INTERSTITIAL PULMONARY DISEASE, UNSPECIF 04/01/2019 NHUNG GALAVIZ MD Ot J96. 20 ACUTE AND CHR RESP FAILURE, UNSP W HYPOX 04/01/2019 NHUNG GALAVIZ MD Ot R91. 1 SOLITARY PULMONARY NODULE 04/01/2019 NHUNG GALAVIZ MD Ot Z87.891 PERSONAL HISTORY OF NICOTINE DEPENDENCE 04/01/2019 ANASTACIA SEGOVIA, NHUNG Nichols Ot E11. 9 TYPE 2 DIABETES MELLITUS WITHOUT COMPLIC 04/01/2019 ANASTACIA SEGOVIA, NHUNG Nichols Ot E78. 5 HYPERLIPIDEMIA, UNSPECIFIED 04/01/2019 NHUNG GALAVIZ MD Ot F10. 20 ALCOHOL DEPENDENCE, UNCOMPLICATED 04/01/2019 ANASTACIA SEGOVIA, NHUNG Nichols Ot I25. 10 ATHSCL HEART DISEASE OF [place] CORONARY 04/01/2019 NHUNG GALAVIZ MD Ot J44. 9 CHRONIC OBSTRUCTIVE PULMONARY DISEASE, U 04/01/2019 NHUNG GALAVIZ MD Ot J96. 20 ACUTE AND CHR RESP FAILURE, UNSP W HYPOX 04/01/2019 MINDY SEGOVIA, ENMANUEL Ot C34. 11 MALIGNANT NEOPLASM OF UPPER LOBE, RIGHT 04/01/2019 MINDY SEGOVIA, ENMANUEL Ot M89. 9 DISORDER OF BONE, UNSPECIFIED 04/01/2019 ANTHONY FATIMA COAT PADDER Ot G47.30 SLEEP APNEA, UNSPECIFIED 04/01/2019 ADINA FATIMAINE E COAT PADDER Ot J18.9 PNEUMONIA, UNSPECIFIED ORGANISM 04/01/2019 ADINA FATIMAINE E COAT PADDER Ot J30.9 ALLERGIC RHINITIS, UNSPECIFIED 04/01/2019 ADINA FATIMAINE E COAT PADDER Ot J43.9 EMPHYSEMA, UNSPECIFIED 04/01/2019 AKUA ANTHONY E COAT PADDER Ot J96.20 ACUTE AND CHR RESP FAILURE, UNSP W HYPOX 04/01/2019 ADINA FATIMAINE E COAT PADDER Ot R91.1 SOLITARY PULMONARY NODULE 04/01/2019 ADINA FATIMAINE Ghulam COAT PADDER Ot Z87.891 PERSONAL HISTORY OF NICOTINE DEPENDENCE 04/01/2019 ADINA FATIMAINE E COAT PADDER Ot Z98.890 OTHER SPECIFIED POSTPROCEDURAL STATES 04/01/2019 ADINA FATIMAINE E COAT PADDER Ot C80.1 MALIGNANT (PRIMARY) NEOPLASM, UNSPECIFIE 04/01/2019 ANTHONY FATIMA COAT PADDER Ot J44.9 CHRONIC OBSTRUCTIVE PULMONARY DISEASE, U 04/01/2019 ADINA FATIMAINE E COAT PADDER Ot J84.9 INTERSTITIAL PULMONARY DISEASE, UNSPECIF 04/01/2019 ADINA FATIMAINE E COAT PADDER Ot R91.8 OTHER NONSPECIFIC ABNORMAL FINDING OF [place]LEK[place]Y 04/01/2019 ANTHONY FATIMA E COAT PADDER Ot C80.1 MALIGNANT (PRIMARY) NEOPLASM, UNSPECIFIE 04/01/2019 ANTHONY FATIMA COAT PADDER Ot J44.9 CHRONIC OBSTRUCTIVE PULMONARY DISEASE, U 04/01/2019 ANTHONY FATIMA COAT PADDER Ot R91.1 SOLITARY PULMONARY NODULE 04/01/2019 ANTHONY FATIMA E COAT PADDER Ot C80.1 MALIGNANT (PRIMARY) NEOPLASM, UNSPECIFIE 04/01/2019 ANTHONY FATIMA COAT PADDER Ot G47.33 OBSTRUCTIVE SLEEP APNEA (ADULT) (PEDIATR 04/01/2019 ANTHONY FATIMA COAT PADDER Ot J30.9 ALLERGIC RHINITIS, UNSPECIFIED 04/01/2019 ANTHONY FATIMA COAT PADDER Ot J44.9 CHRONIC OBSTRUCTIVE PULMONARY DISEASE, U 04/01/2019 ANTHONY FATIMA COAT PADDER Ot J84.9 INTERSTITIAL PULMONARY DISEASE, UNSPECIF 04/01/2019 ANTHONY FATIMA COAT PADDER Ot J96.20 ACUTE AND CHR RESP FAILURE, UNSP W HYPOX 04/01/2019 ANTHONY FATIMA COAT PADDER Ot Z87.891 PERSONAL HISTORY OF NICOTINE DEPENDENCE 04/01/2019 ANTHONY FATIMA COAT PADDER Ot Z95.1 PRESENCE OF AORTOCORONARY BYPASS GRAFT 04/01/2019 ANTHONY FATIMA COAT PADDER Ot Z98.890 OTHER SPECIFIED POSTPROCEDURAL STATES 04/01/2019 ANTHONY FATIMA COAT PADDER Ot J30.9 ALLERGIC RHINITIS, UNSPECIFIED 04/01/2019 ANTHONY FATIMA COAT PADDER Ot J43.9 EMPHYSEMA, UNSPECIFIED 04/01/2019 ANTHONY FATIMA COAT PADDER Ot J84.9 INTERSTITIAL PULMONARY DISEASE, UNSPECIF 04/01/2019 ANTHONY FATIMA COAT PADDER Ot J96.20 ACUTE AND CHR RESP FAILURE, UNSP W HYPOX 04/01/2019 ANTHONY FATIMA COAT PADDER Ot R91.8 OTHER NONSPECIFIC ABNORMAL FINDING OF ALEKSEY 04/01/2019 ANTHONY FATIMA COAT PADDER Ot R93.89 ABNORMAL FINDINGS ON DX IMAGING OF OTH B 04/01/2019 ANTHONY FATIMA COAT PADDER Ot Z85.118 PERSONAL HISTORY OF MALIGNANT NEOPLASM O 04/01/2019 ANTHONY FATIMA COAT PADDER Ot Z87.891 PERSONAL HISTORY OF NICOTINE DEPENDENCE 04/08/2019 Ot 244.9 HYPO THYROIDISM NOS 04/08/2019 Ot 250.00 MIKHAIL B WILFREDO WO COMPL, TYPE II OR UNSPEC TY 04/08/2019 Ot 285.9 ANEM IA NOS 04/08/2019 Ot 414.00 COR ON ATHEROSCLER NOS TYPE VESSEL, NATIV 04/08/2019 Ot V12.55 PER DARREN HISTORY OF PULMONARY EMBOLISM 04/08/2019 Ot 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 04/08/2019 Ot V58.66 TREV G-TERM (CURRENT) USE OF ASPIRIN 04/08/2019 Ot V58.69 OTH MED,LT,CURRENT USE 04/08/2019 RAMILA SEGOVIA, PAULETTE R Ot 789. 03 ABDOMINAL PAIN, RIGHT LOWER QUADRANT 04/08/2019 RAMILA SEGOVIA, PAULETTE R Ot 789. 03 ABDOMINAL PAIN, RIGHT LOWER QUADRANT 04/08/2019 ANASTACIA SEGOVIA, NHUNG J Ot 272. 4 HYPERLIPIDEMIA NEC/NOS 04/08/2019 ANASTACIA SEGOVIA, CAPRICEHAR J Ot 401. 9 HYPERTENSION NOS 04/08/2019 ANASTACIA SEGOVIA, NHUNG J Ot 414. 00 CORON ATHEROSCLER NOS TYPE VESSEL, NATIV 04/08/2019 ANASTACIA SEGOVIA, NHUNG J Ot 786. 50 CHEST PAIN NOS 04/08/2019 ANASTACIA SEGOVIA, CAPRICEHAR J Ot 272. 4 HYPERLIPIDEMIA NEC/NOS 04/08/2019 ANASTACIA SEGOVIA, BASHAR J Ot 401. 9 HYPERTENSION NOS 04/08/2019 ANASTACIA SEGOVIA, NHUNG J Ot 414. 00 CORON ATHEROSCLER NOS TYPE VESSEL, NATIV 04/08/2019 ANASTACIA SEGOVIA, NHUNG J Ot 786. 50 CHEST PAIN NOS 04/08/2019 VIRGILIO HARKINS DO Ot 414. 00 CORON ATHEROSCLER NOS TYPE VESSEL, NATIV 04/08/2019 VIRGILIO HARKINS DO Ot 496 CHR AIRWAY OBSTRUCT NEC 04/08/2019 VIRGILIO HARKINS DO Ot 530. 81 ESOPHAGEAL REFLUX 04/08/2019 VIRGILIO HARKINS DO Ot 780. 57 UNSPECIFIED SLEEP APNEA 04/08/2019 VIRGILIO HARKINS DO Ot 786. 09 RESPIRATORY ABNORM NEC 04/08/2019 ANTHONY FATIMA APRN Ot 414.00 CORON ATHEROSCLER NOS TYPE VESSEL, NATIV 04/08/2019 ANTHONY FATIMA APRN Ot 496 CHR AIRWAY OBSTRUCT NEC 04/08/2019 ANTHONY FATIMA APRN Ot 530.81 ESOPHAGEAL REFLUX 04/08/2019 ANTHONY FATIMA COAT PADDER Ot 780.57 UNSPECIFIED SLEEP APNEA 04/08/2019 ANTHONY FATIMA APRN Ot 786.09 RESPIRATORY ABNORM NEC 04/08/2019 MINDY SEGOVIA, ENMANUEL Ot D69. 6 THROMBOCYTOPENIA, UNSPECIFIED 04/08/2019 MINDY SEGOVIA, ENMANUEL Ot R16. 1 SPLENOMEGALY, NOT ELSEWHERE CLASSIFIED 04/08/2019 MINDY SEGOVIA, ENMANUEL Ot R91. 8 OTHER NONSPECIFIC ABNORMAL FINDING OF ALEKSEY 04/08/2019 ANTHONY FATIMA APRN Ot G47.30 SLEEP APNEA, UNSPECIFIED 04/08/2019 ANTHONY FATIMA APRN Ot J30.9 ALLERGIC RHINITIS, UNSPECIFIED 04/08/2019 ANTHONY FATIMA APRN Ot J44.9 CHRONIC OBSTRUCTIVE PULMONARY DISEASE, U 04/08/2019 ANTHONY FATIMA APRN Ot Z87.891 PERSONAL HISTORY OF NICOTINE DEPENDENCE 04/08/2019 ANTHONY FATIMA APRN Ot J44.9 CHRONIC OBSTRUCTIVE PULMONARY DISEASE, U 04/08/2019 MINDY SEGOVIA, ENMANUEL Ot D64. 9 ANEMIA, UNSPECIFIED 04/08/2019 ED IVORY, NALDO Davies Ot I65.23 OCCLUSION AND STENOSIS OF BILATERAL [place] 04/08/2019 VIRGILIO HARKINS DO Ot G47. 30 SLEEP APNEA, UNSPECIFIED 04/08/2019 VIRGILIO HARKINS DO Ot J30. 9 ALLERGIC RHINITIS, UNSPECIFIED 04/08/2019 VIRGILIO HARKINS DO Ot J44. 9 CHRONIC OBSTRUCTIVE PULMONARY DISEASE, U 04/08/2019 VIRGILIO HARKINS DO Ot R06. 00 DYSPNEA, UNSPECIFIED 04/08/2019 VIRGILIO HARKINS DO Ot J44. 9 CHRONIC OBSTRUCTIVE PULMONARY DISEASE, U 04/08/2019 VIRGILIO HARKINS DO Ot R91. 1 SOLITARY PULMONARY NODULE 04/08/2019 Ot R91.1 DONOVAN TARY PULMONARY NODULE 04/08/2019 ANTHONY FATIMA APRN Ot J44.9 CHRONIC OBSTRUCTIVE PULMONARY DISEASE, U 04/08/2019 ANTHONY FATIMA APRN Ot J84.9 INTERSTITIAL PULMONARY DISEASE, UNSPECIF 04/08/2019 ANTHONY FATIMA APRN Ot J96.20 ACUTE AND CHR RESP FAILURE, UNSP W HYPOX 04/08/2019 ANTHONY FATIMA APRN Ot R91.1 SOLITARY PULMONARY NODULE 04/08/2019 NALDO ROMO Ot G47.30 SLEEP APNEA, UNSPECIFIED 04/08/2019 NALDO ROMO Ot I10 ESSENTIAL (PRIMARY) HYPERTENSION 04/08/2019 NALDO ROMO Ot I25.10 ATHSCL HEART DISEASE OF [place] CORONARY 04/08/2019 NALDO ROMO Ot K21.9 GASTRO-ESOPHAGEAL REFLUX DISEASE WITHOUT 04/08/2019 ANTHONY FATIMA APRN Ot J44.9 CHRONIC OBSTRUCTIVE PULMONARY DISEASE, U 04/08/2019 ANTHONY FATIMA APRN Ot J84.9 INTERSTITIAL PULMONARY DISEASE, UNSPECIF 04/08/2019 ANTHONY FATIMA APRN Ot R16.1 SPLENOMEGALY, NOT ELSEWHERE CLASSIFIED 04/08/2019 ANTHONY FATIMA APRN Ot R91.8 OTHER NONSPECIFIC ABNORMAL FINDING OF ALEKSEY 04/08/2019 ANTHONY FATIMA APRN Ot B96.5 PSEUDOMONAS ([place]) CAUSING DISEASES CL 04/08/2019 ANTHONY FATIMA APRN Ot B96.5 PSEUDOMONAS ([place]LE[place]) CAUSING DISEASES CL 04/08/2019 ANTHONY FATIMA APRN Ot J44.9 CHRONIC OBSTRUCTIVE PULMONARY DISEASE, U 04/08/2019 ANTHONY FATIMA APRN Ot J96.20 ACUTE AND CHR RESP FAILURE, UNSP W HYPOX 04/08/2019 ANTHONY FATIMA APRN Ot J98.4 OTHER DISORDERS OF LUNG 04/08/2019 VIRGILIO HARKINS DO Ot J43. 9 EMPHYSEMA, UNSPECIFIED 04/08/2019 VIRGILIO HARKINS DO Ot R91. 8 OTHER NONSPECIFIC ABNORMAL FINDING OF [place] 04/08/2019 VIRGILIO HARKINS DO Ot R94. 8 ABNORMAL RESULTS OF FUNCTION STUDIES OF 04/08/2019 ANTHONY FATIMA APRN Ot J43.9 EMPHYSEMA, UNSPECIFIED 04/08/2019 ANTHONY FATIMA APRN Ot J84.9 INTERSTITIAL PULMONARY DISEASE, UNSPECIF 04/08/2019 ANTHONY FATIMA APRN Ot J96.20 ACUTE AND CHR RESP FAILURE, UNSP W HYPOX 04/08/2019 ANTHONY FATIMA APRN Ot R91.1 SOLITARY PULMONARY NODULE 04/08/2019 ANTHONY FATIMA APRN Ot Z87.891 PERSONAL HISTORY OF NICOTINE DEPENDENCE 04/08/2019 NHUNG GALAVIZ MD Ot E11. 9 TYPE 2 DIABETES MELLITUS WITHOUT COMPLIC 04/08/2019 NHUNG GALAVIZ MD Ot E78. 5 HYPERLIPIDEMIA, UNSPECIFIED 04/08/2019 NHUNG GALAVIZ MD Ot F10. 20 ALCOHOL DEPENDENCE, UNCOMPLICATED 04/08/2019 NHUNG GALAVIZ MD J Ot I25. 10 ATHSCL HEART DISEASE OF [place] CORONARY 04/08/2019 NHUNG GALAVIZ MD Ot J43. 9 EMPHYSEMA, UNSPECIFIED 04/08/2019 NHUNG GALAVIZ MD Ot J84. 9 INTERSTITIAL PULMONARY DISEASE, UNSPECIF 04/08/2019 NHUNG GALAVIZ MD Ot J96. 20 ACUTE AND CHR RESP FAILURE, UNSP W HYPOX 04/08/2019 NHUNG GALAVIZ MD Ot R91. 1 SOLITARY PULMONARY NODULE 04/08/2019 NHUNG GALAVIZ MD Ot Z87.891 PERSONAL HISTORY OF NICOTINE DEPENDENCE 04/08/2019 NHUNG GALAVIZ MD Ot E11. 9 TYPE 2 DIABETES MELLITUS WITHOUT COMPLIC 04/08/2019 NHUNG GALAVIZ MD Ot E78. 5 HYPERLIPIDEMIA, UNSPECIFIED 04/08/2019 NHUNG GALAVIZ MD Ot F10. 20 ALCOHOL DEPENDENCE, UNCOMPLICATED 04/08/2019 NHUNG GALAVIZ MD Ot I25. 10 ATHSCL HEART DISEASE OF [place] CORONARY 04/08/2019 NHUNG GALAVIZ MD Ot J44. 9 CHRONIC OBSTRUCTIVE PULMONARY DISEASE, U 04/08/2019 NHUNG GALAVIZ MD Ot J96. 20 ACUTE AND CHR RESP FAILURE, UNSP W HYPOX 04/08/2019 ENMANUEL GUILLEN MD Ot C34. 11 MALIGNANT NEOPLASM OF UPPER LOBE, RIGHT 04/08/2019 ENMANUEL GUILLEN MD Ot M89. 9 DISORDER OF BONE, UNSPECIFIED 04/08/2019 ANTHONY FATIMA APRN Ot G47.30 SLEEP APNEA, UNSPECIFIED 04/08/2019 ANTHONY FATIMA APRN Ot J18.9 PNEUMONIA, UNSPECIFIED ORGANISM 04/08/2019 ANTHONY FATIMA APRN Ot J30.9 ALLERGIC RHINITIS, UNSPECIFIED 04/08/2019 ANTHONY FATIMA APRN Ot J43.9 EMPHYSEMA, UNSPECIFIED 04/08/2019 ANTHONY FATIMA COAT PADDER Ot J96.20 ACUTE AND CHR RESP FAILURE, UNSP W HYPOX 04/08/2019 ANTHONY FATIMA COAT PADDER Ot R91.1 SOLITARY PULMONARY NODULE 04/08/2019 ANTHONY FATIMA COAT PADDER Ot Z87.891 PERSONAL HISTORY OF NICOTINE DEPENDENCE 04/08/2019 ADINA FATIMAINE Ghulam COAT PADDER Ot Z98.890 OTHER SPECIFIED POSTPROCEDURAL STATES 04/08/2019 ADINA FATIMAINE E COAT PADDER Ot C80.1 MALIGNANT (PRIMARY) NEOPLASM, UNSPECIFIE 04/08/2019 ADINA FATIMAINE E COAT PADDER Ot J44.9 CHRONIC OBSTRUCTIVE PULMONARY DISEASE, U 04/08/2019 ADINA FATIMAINE E COAT PADDER Ot J84.9 INTERSTITIAL PULMONARY DISEASE, UNSPECIF 04/08/2019 ADINA FATIMAINE E COAT PADDER Ot R91.8 OTHER NONSPECIFIC ABNORMAL FINDING OF ALEKSEY 04/08/2019 ANTHONY FATIMA COAT PADDER Ot C80.1 MALIGNANT (PRIMARY) NEOPLASM, UNSPECIFIE 04/08/2019 ANTHONY FATIMA COAT PADDER Ot J44.9 CHRONIC OBSTRUCTIVE PULMONARY DISEASE, U 04/08/2019 ANTHONY FATIMA COAT PADDER Ot R91.1 SOLITARY PULMONARY NODULE 04/08/2019 ANTHONY FATIMA COAT PADDER Ot C80.1 MALIGNANT (PRIMARY) NEOPLASM, UNSPECIFIE 04/08/2019 ANTHONY FATIMA E COAT PADDER Ot G47.33 OBSTRUCTIVE SLEEP APNEA (ADULT) (PEDIATR 04/08/2019 ANTHONY FATIMA E COAT PADDER Ot J30.9 ALLERGIC RHINITIS, UNSPECIFIED 04/08/2019 ANTHONY FATIMA E COAT PADDER Ot J44.9 CHRONIC OBSTRUCTIVE PULMONARY DISEASE, U 04/08/2019 ADINA FATIMAINE E COAT PADDER Ot J84.9 INTERSTITIAL PULMONARY DISEASE, UNSPECIF 04/08/2019 ADINA FATIMAINE E COAT PADDER Ot J96.20 ACUTE AND CHR RESP FAILURE, UNSP W HYPOX 04/08/2019 ANTHONY FATIMA COAT PADDER Ot Z87.891 PERSONAL HISTORY OF NICOTINE DEPENDENCE 04/08/2019 ADINA FATIMAINE Ghulam COAT PADDER Ot Z95.1 PRESENCE OF AORTOCORONARY BYPASS GRAFT 04/08/2019 ANTHONY FATIMA COAT PADDER Ot Z98.890 OTHER SPECIFIED POSTPROCEDURAL STATES 04/08/2019 ANTHONY FATIMA COAT PADDER Ot J30.9 ALLERGIC RHINITIS, UNSPECIFIED 04/08/2019 ANTHONY FATIMA COAT PADDER Ot J43.9 EMPHYSEMA, UNSPECIFIED 04/08/2019 ANTHONY FATIMA COAT PADDER Ot J84.9 INTERSTITIAL PULMONARY DISEASE, UNSPECIF 04/08/2019 ANTHONY FATIMA COAT PADDER Ot J96.20 ACUTE AND CHR RESP FAILURE, UNSP W HYPOX 04/08/2019 ANTHONY FATIMA [employer] P[employer]DER Ot R91.8 OTHER NONSPECIFIC ABNORMAL FINDING OF [place]LEK[place]Y 04/08/2019 ANTHONY FATIMA [employer] P[employer]DER Ot R93.89 ABNORMAL FINDINGS ON DX IMAGING OF OTH B 04/08/2019 ANTHONY FATIMA [employer] P[employer]DER Ot Z85.118 PERSONAL HISTORY OF MALIGNANT NEOPLASM O 04/08/2019 ANTHONY FATIMA [employer] P[employer]DER Ot Z87.891 PERSONAL HISTORY OF NICOTINE DEPENDENCE 04/08/2019 NHUNG GALAVIZ MD Ot E11. 9 TYPE 2 DIABETES MELLITUS WITHOUT COMPLIC 04/08/2019 NHUNG GALAVIZ MD Ot E78. 5 HYPERLIPIDEMIA, UNSPECIFIED 04/08/2019 NHUNG GALAVIZ MD Ot I10 ESSENTIAL (PRIMARY) HYPERTENSION 04/08/2019 NHUNG GALAVIZ MD Ot I25. 10 ATHSCL HEART DISEASE OF [place] CORONARY 04/08/2019 NHUNG GALAVIZ MD Ot J44. 9 CHRONIC OBSTRUCTIVE PULMONARY DISEASE, U 04/08/2019 NHUNG GALAVIZ MD Ot K21. 9 GASTRO-ESOPHAGEAL REFLUX DISEASE WITHOUT 04/08/2019 NHUNG GALAVIZ MD Ot K44. 9 DIAPHRAGMATIC HERNIA WITHOUT OBSTRUCTION 04/10/2019 NHUNG GALAVIZ MD Ot E11. 9 TYPE 2 DIABETES MELLITUS WITHOUT COMPLIC 04/10/2019 NHUNG GALAVIZ MD Ot E78. 5 HYPERLIPIDEMIA, UNSPECIFIED 04/10/2019 NHUNG GALAVIZ MD Ot I10 ESSENTIAL (PRIMARY) HYPERTENSION 04/10/2019 NHUNG GALAVIZ MD Ot I25. 10 ATHSCL HEART DISEASE OF [place] CORONARY 04/10/2019 NHUNG GALAVIZ MD Ot J44. 9 CHRONIC OBSTRUCTIVE PULMONARY DISEASE, U 04/10/2019 NHUNG GALAVIZ MD Ot K21. 9 GASTRO-ESOPHAGEAL REFLUX DISEASE WITHOUT 04/10/2019 NHUNG GALAVIZ MD Ot K44. 9 DIAPHRAGMATIC HERNIA WITHOUT OBSTRUCTION 04/24/2019 NHUNG GALAVIZ MD J Ot E11. 9 TYPE 2 DIABETES MELLITUS WITHOUT COMPLIC 04/24/2019 NHUNG GALAVIZ MD J Ot E78. 5 HYPERLIPIDEMIA, UNSPECIFIED 04/24/2019 ANASTACIA SEGOVIA, NHUNG J Ot I10 ESSENTIAL (PRIMARY) HYPERTENSION 04/24/2019 NHUNG GALAVIZ MD J Ot I25. 10 ATHSCL HEART DISEASE OF [place] CORONARY 04/24/2019 NHUNG GALAVIZ MD J Ot J44. 9 CHRONIC OBSTRUCTIVE PULMONARY DISEASE, U 04/24/2019 NHUNG GALAVIZ MD J Ot K21. 9 GASTRO-ESOPHAGEAL REFLUX DISEASE WITHOUT 04/24/2019 NHUNG GALAVIZ MD J Ot K44. 9 DIAPHRAGMATIC HERNIA WITHOUT OBSTRUCTION 04/30/2019 NHUNG GALAVIZ MD J Ot E11. 9 TYPE 2 DIABETES MELLITUS WITHOUT COMPLIC 04/30/2019 NHUNG GALAVIZ MD J Ot E78. 5 HYPERLIPIDEMIA, UNSPECIFIED 04/30/2019 ANASTACIA SEGOVIA, CAPRICEHAR J Ot I10 ESSENTIAL (PRIMARY) HYPERTENSION 04/30/2019 NHUNG GALAVIZ MD J Ot I25. 10 ATHSCL HEART DISEASE OF [place] CORONARY 04/30/2019 NHUNG GALAVIZ MD J Ot J44. 9 CHRONIC OBSTRUCTIVE PULMONARY DISEASE, U 04/30/2019 NHUNG GALAVIZ MD J Ot K21. 9 GASTRO-ESOPHAGEAL REFLUX DISEASE WITHOUT 04/30/2019 NHUNG GALAVIZ MD J Ot K44. 9 DIAPHRAGMATIC HERNIA WITHOUT OBSTRUCTION 05/07/2019 NHUNG GALAVIZ MD J Ot E11. 9 TYPE 2 DIABETES MELLITUS WITHOUT COMPLIC 05/07/2019 NHUNG GALAVIZ MD J Ot E78. 5 HYPERLIPIDEMIA, UNSPECIFIED 05/07/2019 ANASTACIA SEGOVIA, CAPRICEHAR J Ot I10 ESSENTIAL (PRIMARY) HYPERTENSION 05/07/2019 NHUNG GALAVIZ MD J Ot I25. 10 ATHSCL HEART DISEASE OF [place] CORONARY 05/07/2019 NHUNG GALAVIZ MD J Ot J44. 9 CHRONIC OBSTRUCTIVE PULMONARY DISEASE, U 05/07/2019 NHUNG GALAVIZ MD J Ot K21. 9 GASTRO-ESOPHAGEAL REFLUX DISEASE WITHOUT 05/07/2019 NHUNG GALAVIZ MD J Ot K44. 9 DIAPHRAGMATIC HERNIA WITHOUT OBSTRUCTION 05/09/2019 NHUNG GALAVIZ MD J Ot E11. 9 TYPE 2 DIABETES MELLITUS WITHOUT COMPLIC 05/09/2019 NHUNG GALAVIZ MD, Ot E78. 5 HYPERLIPIDEMIA, UNSPECIFIED 05/09/2019 NHUNG GALAVIZ MD, Ot I10 ESSENTIAL (PRIMARY) HYPERTENSION 05/09/2019 NHUNG GALAVIZ MD, Ot I25. 10 ATHSCL HEART DISEASE OF [place] CORONARY 05/09/2019 NHUNG GALAVIZ MD, Ot J44. 9 CHRONIC OBSTRUCTIVE PULMONARY DISEASE, U 05/09/2019 NHUNG GALAVIZ MD, Ot K21. 9 GASTRO-ESOPHAGEAL REFLUX DISEASE WITHOUT 05/09/2019 NHUNG GALAVIZ MD, Ot K44. 9 DIAPHRAGMATIC HERNIA WITHOUT OBSTRUCTION Procedures Code Description Performed By Per formed On 57.32 CYST OSCOPY NEC 07/08/2011 45.16 ESOP HAGOGASTRODUODENOSCOPY [EGD] W/CLOSE 07/14/2011 Results Test Result Range Complete blood count (CBC) with automate d white blood cell (WBC) differential - 01/16/16 03:02 Blood leukocytes automated count (number/volume) 6.0 10*3/uL 4.3-11.0 Blood erythrocytes automated count (number/volume) 3.51 10*6/uL 4.35-5.85 Venous blood hemoglobin measurement (mass/volume) 9.9 g/dL 13.3-17.7 Blood hematocrit (volume fraction) 33 % 40-54 Automated erythrocyte mean corpuscular volume 93 [ foz_us] 80-99 Automated erythrocyte mean corpuscular h emoglobin (mass per erythrocyte) 28 pg 25-34 Automated erythrocyte mean corpuscular h emoglobin concentration measurement (mass/volume) 31 g/dL 32-36 Automated erythrocyte distribution width ratio 16. 0 % 10.0- 14.5 Automated blood platelet count (count/volume) 151 10*3/uL 130-400 Automated blood platelet mean volume measurement 10.7 [foz_us] 7.4-10.4 Automated blood neutrophils/100 leukocytes 79 % 42-75 Automated blood lymphocytes/100 leukocytes 10 % 12-44 Blood monocytes/100 leukocytes 10 % 0-12 Automated blood eosinophils/100 leukocytes 0 % 0-10 Automated blood basophils/100 leukocytes 0 % 0-10 Blood neutrophils automated count (number/volume) 4.8 10*3 1.8-7.8 Blood lymphocytes automated count (number/volume) 0.6 10*3 1.0-4.0 Blood monocytes automated count (number/volume) 0. 6 10*3 0.0-1.0 Automated eosinophil count 0.0 10*3/uL 0 .0-0.3 Automated blood basophil count (count/volume) 0.0 10*3/uL 0.0-0.1 PT panel in platelet poor plasma by coag ulation assay - 01/16/16 03:02 Prothrombin time (PT) in platelet poor plasma by coagu lation assay 12.8 s 12.2-14.7 INR in platelet poor plasma or blood by coagulation as say 1.0 0.8-1.4 Activated partial thromboplastin time (a PTT) in platelet poor plasma bycoagulation assay - 01/16/16 03:02 Activated partial thromboplastin time (a PTT) in platelet poor plasma bycoagulation assay 24 s 24-35 Blood lactic acid measurement (moles/vol ume) - 01/16/16 03:02 Blood lactic acid measurement (moles/volume) 4.6 m mol/L 0.5- 2.0 Comprehensive metabolic panel - 01/16/16 03:02 Serum or plasma sodium measurement (moles/volume) 136 mmol/L 135-145 Serum or plasma potassium measurement (moles/volume) 4.3 mmol/L 3.6-5.0 Serum or plasma chloride measurement (moles/volume) 100 mmol/L 98-107 Carbon dioxide 18 mmol/L 21-32 Serum or plasma anion gap determination (moles/volume) 18 mmol/L 5-14 Serum or plasma urea nitrogen measurement (mass/volume ) 22 mg/dL 7-18 Serum or plasma creatinine measurement (mass/volume) 1.70 mg/dL 0.60-1.30 Serum or plasma urea nitrogen/creatinine mass ratio 13 NRG Serum or plasma creatinine measurement w ith calculation of estimated glomerular filtration rate 41 NRG Serum or plasma glucose measurement (mass/volume) 455 mg/dL 70-105 Serum or plasma calcium measurement (mass/volume) 8.9 mg/dL 8.5-10.1 Serum or plasma total bilirubin measurement (mass/volu me) 0.5 mg/dL 0.1-1.0 Serum or plasma alkaline phosphatase aster surement (enzymatic activity/volume) 101 U/L 40-136 Serum or plasma aspartate aminotransfera se measurement (enzymatic activity/volume) 57 U/L 5-34 Serum or plasma alanine aminotransferase measurement (enzymatic activity/volume) 71 U/L 0-55 Serum or plasma protein measurement (mass/volume) 6.7 g/dL 6.4-8.2 Serum or plasma albumin measurement (mass/volume) 4.1 g/dL 3.2-4.5 Serum or plasma troponin i.cardiac measu rement (mass/volume) - 01/16/16 03:02 Serum or plasma troponin i.cardiac measurement (mass/v olume) < ng/mL <0.30 Serum or plasma lithium measurement (mol es/volume) - 01/16/16 03:02 BNP level 403.7 pg/mL <100.0 Bacterial blood culture - 01/16/16 03:02 Bacterial blood culture NG NRG Complete urinalysis with reflex to cultu re - 01/16/16 04:29 Urine color determination YELLOW NRG Urine clarity determination CLEAR NR G Urine pH measurement by test strip 6 5-9 Specific gravity of urine by test strip 1.010 1.016-1.022 Urine protein assay by test strip, semi-quantitative 1+ NEGATIVE Urine glucose detection by automated test strip 4+ NEGATIVE Erythrocytes detection in urine sediment by light micr oscopy NEGATIVE NEGATIVE Urine ketones detection by automated test strip NE GATIVE NEGATIVE Urine nitrite detection by test strip NEGATIVE NEGATIVE Urine total bilirubin detection by test strip NEGA TIVE NEGATIVE Urine urobilinogen measurement by automated test strip (mass/volume) NORMAL NORMAL Urine leukocyte esterase detection by dipstick NEG ATIVE NEGATIVE Automated urine sediment erythrocyte cou nt by microscopy (number/high power field) NONE NRG Automated urine sediment leukocyte count by microscopy (number/high power field) NONE NRG Bacteria detection in urine sediment by light microsco py NEGATIVE NRG Squamous epithelial cells detection in u rine sediment by light microscopy RARE NRG Crystals detection in urine sediment by light microsco py NONE NRG Casts detection in urine sediment by light microscopy NONE NRG Mucus detection in urine sediment by light microscopy NEGATIVE NRG Complete urinalysis with reflex to culture NO NRG Capillary blood glucose measurement by g lucometer (mass/volume) - 01/16/16 04:47 Capillary blood glucose measurement by glucometer (mas s/volume) 398 mg/dL 70-110 Serum or plasma lactate measurement (mol es/volume) - 01/16/16 05:10 Serum or plasma lactate measurement (moles/volume) 2.7 mmol/L 0.5-2.0 Bacterial blood culture - 01/16/16 05:10 Bacterial blood culture NG NRG Capillary blood glucose measurement by g lucometer (mass/volume) - 01/16/16 11:31 Capillary blood glucose measurement by glucometer (mas s/volume) 517 mg/dL 70-110 Capillary blood glucose measurement by g lucometer (mass/volume) - 01/16/16 16:08 Capillary blood glucose measurement by glucometer (mas s/volume) 478 mg/dL 70-110 Capillary blood glucose measurement by g lucometer (mass/volume) - 01/16/16 21:12 Capillary blood glucose measurement by glucometer (mas s/volume) 435 mg/dL 70-110 Whole blood basic metabolic panel - 04/28 22:27 Serum or plasma sodium measurement (moles/volume) 136 mmol/L 135-145 Serum or plasma potassium measurement (moles/volume) 3.4 mmol/L 3.6-5.0 Serum or plasma chloride measurement (moles/volume) 97 mmol/L 98-107 Carbon dioxide 24 mmol/L 21-32 Serum or plasma anion gap determination (moles/volume) 15 mmol/L 5-14 Serum or plasma urea nitrogen measurement (mass/volume ) 27 mg/dL 7-18 Serum or plasma creatinine measurement (mass/volume) 1.42 mg/dL 0.60-1.30 Serum or plasma urea nitrogen/creatinine mass ratio 19 NRG Serum or plasma creatinine measurement w ith calculation of estimated glomerular filtration rate 51 NRG Serum or plasma glucose measurement (mass/volume) 441 mg/dL 70-105 Serum or plasma calcium measurement (mass/volume) 8.3 mg/dL 8.5-10.1 Capillary blood glucose measurement by g lucometer (mass/volume) - 01/17/16 02:08 Capillary blood glucose measurement by glucometer (mas s/volume) 338 mg/dL 70-110 Whole blood basic metabolic panel - 05/29 03:35 Serum or plasma sodium measurement (moles/volume) 139 mmol/L 135-145 Serum or plasma potassium measurement (moles/volume) 3.3 mmol/L 3.6-5.0 Serum or plasma chloride measurement (moles/volume) 100 mmol/L 98-107 Carbon dioxide 26 mmol/L 21-32 Serum or plasma anion gap determination (moles/volume) 13 mmol/L 5-14 Serum or plasma urea nitrogen measurement (mass/volume ) 24 mg/dL 7-18 Serum or plasma creatinine measurement (mass/volume) 1.27 mg/dL 0.60-1.30 Serum or plasma urea nitrogen/creatinine mass ratio 19 NRG Serum or plasma creatinine measurement w ith calculation of estimated glomerular filtration rate 58 NRG Serum or plasma glucose measurement (mass/volume) 353 mg/dL 70-105 Serum or plasma calcium measurement (mass/volume) 8.5 mg/dL 8.5-10.1 Serum or plasma phosphate measurement (m ass/volume) - 01/17/16 03:35 Serum or plasma phosphate measurement (mass/volume) 3.8 mg/dL 2.3-4.7 Magnesium - 01/17/16 03:35 Magnesium 2.2 mg/dL 1.8-2.4 Lipid 1996 panel - 01/17/16 03:35 Serum or plasma triglyceride measurement (mass/volume) 117 mg/dL <150 Serum or plasma cholesterol measurement (mass/volume) 167 mg/dL < 200 Serum or plasma cholesterol in HDL measurement (mass/v olume) 75 mg/dL 40-60 Cholesterol in LDL [mass/volume] in serum or plasma by direct assay 62 mg/dL 1-129 Serum or plasma cholesterol in VLDL measurement (mass/ volume) 23 mg/dL 5-40 Complete blood count (CBC) with automate d white blood cell (WBC) differential - 01/17/16 03:38 Blood leukocytes automated count (number/volume) 3.3 10*3/uL 4.3-11.0 Blood erythrocytes automated count (number/volume) 3.29 10*6/uL 4.35-5.85 Venous blood hemoglobin measurement (mass/volume) 9.0 g/dL 13.3-17.7 Blood hematocrit (volume fraction) 30 % 40-54 Automated erythrocyte mean corpuscular volume 91 [ foz_us] 80-99 Automated erythrocyte mean corpuscular h emoglobin (mass per erythrocyte) 27 pg 25-34 Automated erythrocyte mean corpuscular h emoglobin concentration measurement (mass/volume) 30 g/dL 32-36 Automated erythrocyte distribution width ratio 15. 1 % 10.0- 14.5 Automated blood platelet count (count/volume) 96 1 0*3/uL 130-400 Automated blood platelet mean volume measurement 10.8 [foz_us] 7.4-10.4 Automated blood neutrophils/100 leukocytes 89 % 42-75 Automated blood lymphocytes/100 leukocytes 6 % 12-44 Blood monocytes/100 leukocytes 5 % 0-12 Automated blood eosinophils/100 leukocytes 0 % 0-10 Automated blood basophils/100 leukocytes 0 % 0-10 Blood neutrophils automated count (number/volume) 2.9 10*3 1.8-7.8 Blood lymphocytes automated count (number/volume) 0.2 10*3 1.0-4.0 Blood monocytes automated count (number/volume) 0. 2 10*3 0.0-1.0 Automated eosinophil count 0.0 10*3/uL 0 .0-0.3 Automated blood basophil count (count/volume) 0.0 10*3/uL 0.0-0.1 Capillary blood glucose measurement by g lucometer (mass/volume) - 01/17/16 11:45 Capillary blood glucose measurement by glucometer (mas s/volume) 301 mg/dL 70-110 Capillary blood glucose measurement by g lucometer (mass/volume) - 01/17/16 16:19 Capillary blood glucose measurement by glucometer (mas s/volume) 291 mg/dL 70-110 Capillary blood glucose measurement by g lucometer (mass/volume) - 01/17/16 20:03 Capillary blood glucose measurement by glucometer (mas s/volume) 301 mg/dL 70-110 Complete blood count (CBC) with automate d white blood cell (WBC) differential - 01/18/16 03:20 Blood leukocytes automated count (number/volume) 4.2 10*3/uL 4.3-11.0 Blood erythrocytes automated count (number/volume) 3.48 10*6/uL 4.35-5.85 Venous blood hemoglobin measurement (mass/volume) 9.8 g/dL 13.3-17.7 Blood hematocrit (volume fraction) 32 % 40-54 Automated erythrocyte mean corpuscular volume 92 [ foz_us] 80-99 Automated erythrocyte mean corpuscular h emoglobin (mass per erythrocyte) 28 pg 25-34 Automated erythrocyte mean corpuscular h emoglobin concentration measurement (mass/volume) 31 g/dL 32-36 Automated erythrocyte distribution width ratio 15. 3 % 10.0- 14.5 Automated blood platelet count (count/volume) 106 10*3/uL 130-400 Automated blood platelet mean volume measurement 10.9 [foz_us] 7.4-10.4 Automated blood neutrophils/100 leukocytes 93 % 42-75 Automated blood lymphocytes/100 leukocytes 3 % 12-44 Blood monocytes/100 leukocytes 4 % 0-12 Automated blood eosinophils/100 leukocytes 0 % 0-10 Automated blood basophils/100 leukocytes 0 % 0-10 Blood neutrophils automated count (number/volume) 3.9 10*3 1.8-7.8 Blood lymphocytes automated count (number/volume) 0.1 10*3 1.0-4.0 Blood monocytes automated count (number/volume) 0. 2 10*3 0.0-1.0 Automated eosinophil count 0.0 10*3/uL 0 .0-0.3 Automated blood basophil count (count/volume) 0.0 10*3/uL 0.0-0.1 Blood manual differential performed dete ction - 01/18/16 03:20 Blood monocytes/100 leukocytes 6 % NRG Manual blood segmented neutrophils/100 leukocytes 89 % NRG Blood band neutrophils/100 leukocytes 1 % NRG Manual blood lymphocytes/100 leukocytes 4 % NRG Blood anisocytosis detection by light microscopy M ODERATE NRG Blood ovalocytes detection by light microscopy SLI GHT NRG Blood dacrocytes detection by light microscopy MAR KED NRG Whole blood basic metabolic panel - 06/28 03:20 Serum or plasma sodium measurement (moles/volume) 140 mmol/L 135-145 Serum or plasma potassium measurement (moles/volume) 3.6 mmol/L 3.6-5.0 Serum or plasma chloride measurement (moles/volume) 102 mmol/L 98-107 Carbon dioxide 25 mmol/L 21-32 Serum or plasma anion gap determination (moles/volume) 13 mmol/L 5-14 Serum or plasma urea nitrogen measurement (mass/volume ) 24 mg/dL 7-18 Serum or plasma creatinine measurement (mass/volume) 1.22 mg/dL 0.60-1.30 Serum or plasma urea nitrogen/creatinine mass ratio 20 NRG Serum or plasma creatinine measurement w ith calculation of estimated glomerular filtration rate 60 NRG Serum or plasma glucose measurement (mass/volume) 375 mg/dL 70-105 Serum or plasma calcium measurement (mass/volume) 8.6 mg/dL 8.5-10.1 Serum or plasma phosphate measurement (m ass/volume) - 01/18/16 03:20 Serum or plasma phosphate measurement (mass/volume) 4.4 mg/dL 2.3-4.7 Magnesium - 01/18/16 03:20 Magnesium 2.5 mg/dL 1.8-2.4 Serum iron and total iron binding capaci ty panel - 01/18/16 08:53 Serum or plasma iron measurement (mass/volume) 11 % 40-180 Total iron binding capacity and transferrin saturation measurement 3 % 15-50 Iron binding capacity [mass/volume] in serum or plasma 367 % 280-380 UIBC (unsaturated iron binding capacity) 356 % 55-450 Serum or plasma ferritin measurement (mass/volume) 26 % 25- 300 Cyanocobalamin measurement - 01/18/16 08 :53 Vitamin B12 467 pg/mL 200-1000 Capillary blood glucose measurement by g lucometer (mass/volume) - 01/18/16 16:26 Capillary blood glucose measurement by glucometer (mas s/volume) 239 mg/dL 70-110 Capillary blood glucose measurement by g lucometer (mass/volume) - 01/18/16 21:05 Capillary blood glucose measurement by glucometer (mas s/volume) 184 mg/dL 70-110 Capillary blood glucose measurement by g lucometer (mass/volume) - 01/19/16 05:39 Capillary blood glucose measurement by glucometer (mas s/volume) 303 mg/dL 70-110 Complete blood count (CBC) with automate d white blood cell (WBC) differential - 01/19/16 06:15 Blood leukocytes automated count (number/volume) 4.6 10*3/uL 4.3-11.0 Blood erythrocytes automated count (number/volume) 3.53 10*6/uL 4.35-5.85 Venous blood hemoglobin measurement (mass/volume) 9.8 g/dL 13.3-17.7 Blood hematocrit (volume fraction) 33 % 40-54 Automated erythrocyte mean corpuscular volume 93 [ foz_us] 80-99 Automated erythrocyte mean corpuscular h emoglobin (mass per erythrocyte) 28 pg 25-34 Automated erythrocyte mean corpuscular h emoglobin concentration measurement (mass/volume) 30 g/dL 32-36 Automated erythrocyte distribution width ratio 15. 5 % 10.0- 14.5 Automated blood platelet count (count/volume) 105 10*3/uL 130-400 Automated blood platelet mean volume measurement 10.2 [foz_us] 7.4-10.4 Automated blood neutrophils/100 leukocytes 88 % 42-75 Automated blood lymphocytes/100 leukocytes 5 % 12-44 Blood monocytes/100 leukocytes 8 % 0-12 Automated blood eosinophils/100 leukocytes 0 % 0-10 Automated blood basophils/100 leukocytes 0 % 0-10 Blood neutrophils automated count (number/volume) 4.1 10*3 1.8-7.8 Blood lymphocytes automated count (number/volume) 0.2 10*3 1.0-4.0 Blood monocytes automated count (number/volume) 0. 4 10*3 0.0-1.0 Automated eosinophil count 0.0 10*3/uL 0 .0-0.3 Automated blood basophil count (count/volume) 0.0 10*3/uL 0.0-0.1 Whole blood basic metabolic panel - 07/29 06:15 Serum or plasma sodium measurement (moles/volume) 141 mmol/L 135-145 Serum or plasma potassium measurement (moles/volume) 4.1 mmol/L 3.6-5.0 Serum or plasma chloride measurement (moles/volume) 105 mmol/L 98-107 Carbon dioxide 25 mmol/L 21-32 Serum or plasma anion gap determination (moles/volume) 11 mmol/L 5-14 Serum or plasma urea nitrogen measurement (mass/volume ) 27 mg/dL 7-18 Serum or plasma creatinine measurement (mass/volume) 1.08 mg/dL 0.60-1.30 Serum or plasma urea nitrogen/creatinine mass ratio 25 NRG Serum or plasma creatinine measurement w ith calculation of estimated glomerular filtration rate > NRG Serum or plasma glucose measurement (mass/volume) 341 mg/dL 70-105 Serum or plasma calcium measurement (mass/volume) 8.5 mg/dL 8.5-10.1 Serum or plasma phosphate measurement (m ass/volume) - 01/19/16 06:15 Serum or plasma phosphate measurement (mass/volume) 4.9 mg/dL 2.3-4.7 Magnesium - 01/19/16 06:15 Magnesium 2.6 mg/dL 1.8-2.4 Serum or plasma lithium measurement (mol es/volume) - 01/19/16 06:15 BNP level 432.9 pg/mL <100.0 Capillary blood glucose measurement by g lucometer (mass/volume) - 01/19/16 11:03 Capillary blood glucose measurement by glucometer (mas s/volume) 323 mg/dL 70-110 Complete blood count (CBC) with automate d white blood cell (WBC) differential - 03/21/16 16:35 Blood leukocytes automated count (number/volume) 4.1 10*3/uL 4.3-11.0 Blood erythrocytes automated count (number/volume) 3.35 10*6/uL 4.35-5.85 Venous blood hemoglobin measurement (mass/volume) 9.1 g/dL 13.3-17.7 Blood hematocrit (volume fraction) 30 % 40-54 Automated erythrocyte mean corpuscular volume 90 [ foz_us] 80-99 Automated erythrocyte mean corpuscular h emoglobin (mass per erythrocyte) 27 pg 25-34 Automated erythrocyte mean corpuscular h emoglobin concentration measurement (mass/volume) 30 g/dL 32-36 Automated erythrocyte distribution width ratio 18. 0 % 10.0- 14.5 Automated blood platelet count (count/volume) 168 10*3/uL 130-400 Automated blood platelet mean volume measurement 10.5 [foz_us] 7.4-10.4 Automated blood neutrophils/100 leukocytes 64 % 42-75 Automated blood lymphocytes/100 leukocytes 15 % 12-44 Blood monocytes/100 leukocytes 15 % 0-12 Automated blood eosinophils/100 leukocytes 4 % 0-10 Automated blood basophils/100 leukocytes 1 % 0-10 Blood neutrophils automated count (number/volume) 2.6 10*3 1.8-7.8 Blood lymphocytes automated count (number/volume) 0.6 10*3 1.0-4.0 Blood monocytes automated count (number/volume) 0. 6 10*3 0.0-1.0 Automated eosinophil count 0.2 10*3/uL 0 .0-0.3 Automated blood basophil count (count/volume) 0.1 10*3/uL 0.0-0.1 Complete urinalysis with reflex to cultu re - 03/21/16 16:35 Urine color determination YELLOW NRG Urine clarity determination CLEAR NR G Urine pH measurement by test strip 7 5-9 Specific gravity of urine by test strip 1.005 1.016-1.022 Urine protein assay by test strip, semi-quantitative NEGATIVE NEGATIVE Urine glucose detection by automated test strip NE GATIVE NEGATIVE Erythrocytes detection in urine sediment by light micr oscopy NEGATIVE NEGATIVE Urine ketones detection by automated test strip NE GATIVE NEGATIVE Urine nitrite detection by test strip NEGATIVE NEGATIVE Urine total bilirubin detection by test strip NEGA TIVE NEGATIVE Urine urobilinogen measurement by automated test strip (mass/volume) NORMAL NORMAL Urine leukocyte esterase detection by dipstick NEG ATIVE NEGATIVE Automated urine sediment erythrocyte cou nt by microscopy (number/high power field) NONE NRG Automated urine sediment leukocyte count by microscopy (number/high power field) RARE NRG Bacteria detection in urine sediment by light microsco py NEGATIVE NRG Crystals detection in urine sediment by light microsco py NONE NRG Casts detection in urine sediment by light microscopy PRESENT NRG Mucus detection in urine sediment by light microscopy NEGATIVE NRG Complete urinalysis with reflex to culture NO NRG Hyaline casts detection in urine sediment by light kiran roscopy 0-2 NRG Comprehensive metabolic panel - 03/21/16 16:35 Serum or plasma sodium measurement (moles/volume) 137 mmol/L 135-145 Serum or plasma potassium measurement (moles/volume) 4.4 mmol/L 3.6-5.0 Serum or plasma chloride measurement (moles/volume) 99 mmol/L 98-107 Carbon dioxide 22 mmol/L 21-32 Serum or plasma anion gap determination (moles/volume) 16 mmol/L 5-14 Serum or plasma urea nitrogen measurement (mass/volume ) 10 mg/dL 7-18 Serum or plasma creatinine measurement (mass/volume) 1.41 mg/dL 0.60-1.30 Serum or plasma urea nitrogen/creatinine mass ratio 7 NRG Serum or plasma creatinine measurement w ith calculation of estimated glomerular filtration rate 51 NRG Serum or plasma glucose measurement (mass/volume) 226 mg/dL 70-105 Serum or plasma calcium measurement (mass/volume) 8.2 mg/dL 8.5-10.1 Serum or plasma total bilirubin measurement (mass/volu me) 1.0 mg/dL 0.1-1.0 Serum or plasma alkaline phosphatase aster surement (enzymatic activity/volume) 100 U/L 40-136 Serum or plasma aspartate aminotransfera se measurement (enzymatic activity/volume) 84 U/L 5-34 Serum or plasma alanine aminotransferase measurement (enzymatic activity/volume) 28 U/L 0-55 Serum or plasma protein measurement (mass/volume) 6.5 g/dL 6.4-8.2 Serum or plasma albumin measurement (mass/volume) 3.3 g/dL 3.2-4.5 Magnesium - 03/21/16 16:35 Magnesium 1.7 mg/dL 1.8-2.4 Blood lactic acid measurement (moles/vol ume) - 03/21/16 16:35 Blood lactic acid measurement (moles/volume) 3.0 m mol/L 0.5- 2.0 Serum or plasma lithium measurement (mol es/volume) - 03/21/16 16:35 BNP level 207.0 pg/mL <100.0 THYROID STIMULATING HORMONE - 03/21/16 1 6:35 THYROID STIMULATING HORMONE 2.44 u[iU]/mL 0.35-4.94 Serum or plasma thyroxine (T4) free dona urement (mass/volume) - 03/21/16 16:35 Serum or plasma thyroxine (T4) free measurement (mass/ volume) 1.17 ng/dL 0.70-1.48 Serum or plasma ethanol measurement (mas s/volume) - 03/21/16 16:35 Serum or plasma ethanol measurement (mass/volume) < mg/dL <10 Serum or plasma lactate measurement (mol es/volume) - 03/21/16 18:39 Serum or plasma lactate measurement (moles/volume) 2.3 mmol/L 0.5-2.0 Complete blood count (CBC) with automate d white blood cell (WBC) differential - 03/22/16 06:40 Blood leukocytes automated count (number/volume) 3.4 10*3/uL 4.3-11.0 Blood erythrocytes automated count (number/volume) 2.94 10*6/uL 4.35-5.85 Venous blood hemoglobin measurement (mass/volume) 8.0 g/dL 13.3-17.7 Blood hematocrit (volume fraction) 27 % 40-54 Automated erythrocyte mean corpuscular volume 90 [ foz_us] 80-99 Automated erythrocyte mean corpuscular h emoglobin (mass per erythrocyte) 27 pg 25-34 Automated erythrocyte mean corpuscular h emoglobin concentration measurement (mass/volume) 30 g/dL 32-36 Automated erythrocyte distribution width ratio 18. 3 % 10.0- 14.5 Automated blood platelet count (count/volume) 152 10*3/uL 130-400 Automated blood platelet mean volume measurement 10.2 [foz_us] 7.4-10.4 Automated blood neutrophils/100 leukocytes 61 % 42-75 Automated blood lymphocytes/100 leukocytes 18 % 12-44 Blood monocytes/100 leukocytes 15 % 0-12 Automated blood eosinophils/100 leukocytes 6 % 0-10 Automated blood basophils/100 leukocytes 1 % 0-10 Blood neutrophils automated count (number/volume) 2.1 10*3 1.8-7.8 Blood lymphocytes automated count (number/volume) 0.6 10*3 1.0-4.0 Blood monocytes automated count (number/volume) 0. 5 10*3 0.0-1.0 Automated eosinophil count 0.2 10*3/uL 0 .0-0.3 Automated blood basophil count (count/volume) 0.0 10*3/uL 0.0-0.1 Whole blood basic metabolic panel - 08/29 06:40 Serum or plasma sodium measurement (moles/volume) 133 mmol/L 135-145 Serum or plasma potassium measurement (moles/volume) 3.2 mmol/L 3.6-5.0 Serum or plasma chloride measurement (moles/volume) 96 mmol/L 98-107 Carbon dioxide 26 mmol/L 21-32 Serum or plasma anion gap determination (moles/volume) 11 mmol/L 5-14 Serum or plasma urea nitrogen measurement (mass/volume ) 11 mg/dL 7-18 Serum or plasma creatinine measurement (mass/volume) 1.32 mg/dL 0.60-1.30 Serum or plasma urea nitrogen/creatinine mass ratio 8 NRG Serum or plasma creatinine measurement w ith calculation of estimated glomerular filtration rate 55 NRG Serum or plasma glucose measurement (mass/volume) 336 mg/dL 70-105 Serum or plasma calcium measurement (mass/volume) 7.8 mg/dL 8.5-10.1 Magnesium - 03/22/16 06:40 Magnesium 1.4 mg/dL 1.8-2.4 PT panel in platelet poor plasma by coag ulation assay - 03/22/16 06:40 Prothrombin time (PT) in platelet poor plasma by coagu lation assay 13.7 s 12.2-14.7 INR in platelet poor plasma or blood by coagulation as say 1.1 0.8-1.4 Liver function panel (serum or plasma al k phos, alb, total and direct bili, total protein, ALT, AST) - 03/22/16 06:40 Serum or plasma total bilirubin measurement (mass/volu me) 0.9 mg/dL 0.1-1.0 Serum or plasma alkaline phosphatase aster surement (enzymatic activity/volume) 77 U/L 40-136 Serum or plasma aspartate aminotransfera se measurement (enzymatic activity/volume) 48 U/L 5-34 Serum or plasma alanine aminotransferase measurement (enzymatic activity/volume) 38 U/L 0-55 Serum or plasma protein measurement (mass/volume) 5.6 g/dL 6.4-8.2 Serum or plasma albumin measurement (mass/volume) 3.2 g/dL 3.2-4.5 Bilirubin direct 0.5 mg/dL 0.0-0.3 Serum or plasma indirect bilirubin measurement (mass/v olume) 0.4 mg/dL NRG GGT (gamma glutamyl transferase) - 03/22 06:40 GGT (gamma glutamyl transferase) 361 U/L 0-65 Capillary blood glucose measurement by g lucometer (mass/volume) - 03/22/16 11:20 Capillary blood glucose measurement by glucometer (mas s/volume) 416 mg/dL 70-110 Capillary blood glucose measurement by g lucometer (mass/volume) - 03/22/16 16:41 Capillary blood glucose measurement by glucometer (mas s/volume) 332 mg/dL 70-110 Capillary blood glucose measurement by g lucometer (mass/volume) - 03/22/16 21:03 Capillary blood glucose measurement by glucometer (mas s/volume) 308 mg/dL 70-110 Capillary blood glucose measurement by g lucometer (mass/volume) - 03/23/16 05:36 Capillary blood glucose measurement by glucometer (mas s/volume) 239 mg/dL 70-110 Complete blood count (CBC) with automate d white blood cell (WBC) differential - 03/23/16 05:54 Blood leukocytes automated count (number/volume) 3.0 10*3/uL 4.3-11.0 Blood erythrocytes automated count (number/volume) 3.05 10*6/uL 4.35-5.85 Venous blood hemoglobin measurement (mass/volume) 8.3 g/dL 13.3-17.7 Blood hematocrit (volume fraction) 28 % 40-54 Automated erythrocyte mean corpuscular volume 91 [ foz_us] 80-99 Automated erythrocyte mean corpuscular h emoglobin (mass per erythrocyte) 27 pg 25-34 Automated erythrocyte mean corpuscular h emoglobin concentration measurement (mass/volume) 30 g/dL 32-36 Automated erythrocyte distribution width ratio 18. 4 % 10.0- 14.5 Automated blood platelet count (count/volume) 155 10*3/uL 130-400 Automated blood platelet mean volume measurement 10.2 [foz_us] 7.4-10.4 Automated blood neutrophils/100 leukocytes 61 % 42-75 Automated blood lymphocytes/100 leukocytes 15 % 12-44 Blood monocytes/100 leukocytes 14 % 0-12 Automated blood eosinophils/100 leukocytes 7 % 0-10 Automated blood basophils/100 leukocytes 2 % 0-10 Blood neutrophils automated count (number/volume) 1.9 10*3 1.8-7.8 Blood lymphocytes automated count (number/volume) 0.5 10*3 1.0-4.0 Blood monocytes automated count (number/volume) 0. 4 10*3 0.0-1.0 Automated eosinophil count 0.2 10*3/uL 0 .0-0.3 Automated blood basophil count (count/volume) 0.1 10*3/uL 0.0-0.1 Whole blood basic metabolic panel - 0 09/29 05:54 Serum or plasma sodium measurement (moles/volume) 137 mmol/L 135-145 Serum or plasma potassium measurement (moles/volume) 3.3 mmol/L 3.6-5.0 Serum or plasma chloride measurement (moles/volume) 99 mmol/L 98-107 Carbon dioxide 25 mmol/L 21-32 Serum or plasma anion gap determination (moles/volume) 13 mmol/L 5-14 Serum or plasma urea nitrogen measurement (mass/volume ) 7 mg/dL 7-18 Serum or plasma creatinine measurement (mass/volume) 1.10 mg/dL 0.60-1.30 Serum or plasma urea nitrogen/creatinine mass ratio 6 NRG Serum or plasma creatinine measurement w ith calculation of estimated glomerular filtration rate > NRG Serum or plasma glucose measurement (mass/volume) 223 mg/dL 70-105 Serum or plasma calcium measurement (mass/volume) 8.0 mg/dL 8.5-10.1 Capillary blood glucose measurement by g lucometer (mass/volume) - 03/23/16 11:29 Capillary blood glucose measurement by glucometer (mas s/volume) 261 mg/dL 70-110 Capillary blood glucose measurement by g lucometer (mass/volume) - 03/23/16 15:48 Capillary blood glucose measurement by glucometer (mas s/volume) 197 mg/dL 70-110 Capillary blood glucose measurement by g lucometer (mass/volume) - 03/23/16 20:29 Capillary blood glucose measurement by glucometer (mas s/volume) 225 mg/dL 70-110 Capillary blood glucose measurement by g lucometer (mass/volume) - 03/24/16 06:14 Capillary blood glucose measurement by glucometer (mas s/volume) 194 mg/dL 70-110 Whole blood basic metabolic panel - 10/30 06:31 Serum or plasma sodium measurement (moles/volume) 136 mmol/L 135-145 Serum or plasma potassium measurement (moles/volume) 3.8 mmol/L 3.6-5.0 Serum or plasma chloride measurement (moles/volume) 100 mmol/L 98-107 Carbon dioxide 26 mmol/L 21-32 Serum or plasma anion gap determination (moles/volume) 10 mmol/L 5-14 Serum or plasma urea nitrogen measurement (mass/volume ) 6 mg/dL 7-18 Serum or plasma creatinine measurement (mass/volume) 1.12 mg/dL 0.60-1.30 Serum or plasma urea nitrogen/creatinine mass ratio 5 NRG Serum or plasma creatinine measurement w ith calculation of estimated glomerular filtration rate > NRG Serum or plasma glucose measurement (mass/volume) 177 mg/dL 70-105 Serum or plasma calcium measurement (mass/volume) 8.3 mg/dL 8.5-10.1 Magnesium - 03/24/16 06:31 Magnesium 1.8 mg/dL 1.8-2.4 Capillary blood glucose measurement by g lucometer (mass/volume) - 03/24/16 10:56 Capillary blood glucose measurement by glucometer (mas s/volume) 149 mg/dL 70-110 Capillary blood glucose measurement by g lucometer (mass/volume) - 03/24/16 15:46 Capillary blood glucose measurement by glucometer (mas s/volume) 205 mg/dL 70-110 Capillary blood glucose measurement by g lucometer (mass/volume) - 03/24/16 21:12 Capillary blood glucose measurement by glucometer (mas s/volume) 175 mg/dL 70-110 Capillary blood glucose measurement by g lucometer (mass/volume) - 03/25/16 05:34 Capillary blood glucose measurement by glucometer (mas s/volume) 175 mg/dL 70-110 Capillary blood glucose measurement by g lucometer (mass/volume) - 03/25/16 11:14 Capillary blood glucose measurement by glucometer (mas s/volume) 165 mg/dL 70-110 Automated blood complete blood count (he mogram) panel - 08/17/16 07:08 Blood leukocytes automated count (number/volume) 4.4 10*3/uL 4.3-11.0 Blood erythrocytes automated count (number/volume) 4.09 10*6/uL 4.35-5.85 Venous blood hemoglobin measurement (mass/volume) 10.1 g/dL 13.3-17.7 Blood hematocrit (volume fraction) 33 % 40-54 Automated erythrocyte mean corpuscular volume 80 [ foz_us] 80-99 Automated erythrocyte mean corpuscular h emoglobin (mass per erythrocyte) 25 pg 25-34 Automated erythrocyte mean corpuscular h emoglobin concentration measurement (mass/volume) 31 g/dL 32-36 Automated erythrocyte distribution width ratio 15. 4 % 10.0- 14.5 Automated blood platelet count (count/volume) 137 10*3/uL 130-400 Automated blood platelet mean volume measurement 10.4 [foz_us] 7.4-10.4 PT panel in platelet poor plasma by coag ulation assay - 08/17/16 07:08 Prothrombin time (PT) in platelet poor plasma by coagu lation assay 13.6 s 12.2-14.7 INR in platelet poor plasma or blood by coagulation as say 1.1 0.8-1.4 Activated partial thromboplastin time (a PTT) in platelet poor plasma bycoagulation assay - 08/17/16 07:08 Activated partial thromboplastin time (a PTT) in platelet poor plasma bycoagulation assay 26 s 24-35 Comprehensive metabolic panel - 08/17/16 07:08 Serum or plasma sodium measurement (moles/volume) 139 mmol/L 135-145 Serum or plasma potassium measurement (moles/volume) 3.7 mmol/L 3.6-5.0 Serum or plasma chloride measurement (moles/volume) 103 mmol/L 98-107 Carbon dioxide 21 mmol/L 21-32 Serum or plasma anion gap determination (moles/volume) 15 mmol/L 5-14 Serum or plasma urea nitrogen measurement (mass/volume ) 20 mg/dL 7-18 Serum or plasma creatinine measurement (mass/volume) 1.32 mg/dL 0.60-1.30 Serum or plasma urea nitrogen/creatinine mass ratio 15 NRG Serum or plasma creatinine measurement w ith calculation of estimated glomerular filtration rate 55 NRG Serum or plasma glucose measurement (mass/volume) 309 mg/dL 70-105 Serum or plasma calcium measurement (mass/volume) 9.6 mg/dL 8.5-10.1 Serum or plasma total bilirubin measurement (mass/volu me) 0.4 mg/dL 0.1-1.0 Serum or plasma alkaline phosphatase aster surement (enzymatic activity/volume) 107 U/L 40-136 Serum or plasma aspartate aminotransfera se measurement (enzymatic activity/volume) 13 U/L 5-34 Serum or plasma alanine aminotransferase measurement (enzymatic activity/volume) 17 U/L 0-55 Serum or plasma protein measurement (mass/volume) 7.1 g/dL 6.4-8.2 Serum or plasma albumin measurement (mass/volume) 4.1 g/dL 3.2-4.5 Lipid 1996 panel - 08/17/16 07:08 Serum or plasma triglyceride measurement (mass/volume) 94 mg/dL <150 Serum or plasma cholesterol measurement (mass/volume) 120 mg/dL < 200 Serum or plasma cholesterol in HDL measurement (mass/v olume) 28 mg/dL 40-60 Cholesterol in LDL [mass/volume] in serum or plasma by direct assay 75 mg/dL 1-129 Serum or plasma cholesterol in VLDL measurement (mass/ volume) 19 mg/dL 5-40 Methicillin resistant Staphylococcus aur eus (MRSA) screening culture - 08/17/16 07:08 Methicillin resistant Staphylococcus aureus (MRSA) scr eening culture NEG NRG Capillary blood glucose measurement by g lucometer (mass/volume) - 08/17/16 11:21 Capillary blood glucose measurement by glucometer (mas s/volume) 270 mg/dL 70-110 Capillary blood glucose measurement by g lucometer (mass/volume) - 08/17/16 18:10 Capillary blood glucose measurement by glucometer (mas s/volume) 222 mg/dL 70-110 Capillary blood glucose measurement by g lucometer (mass/volume) - 08/17/16 21:36 Capillary blood glucose measurement by glucometer (mas s/volume) 146 mg/dL 70-110 Automated blood complete blood count (he mogram) panel - 08/18/16 03:15 Blood leukocytes automated count (number/volume) 4.1 10*3/uL 4.3-11.0 Blood erythrocytes automated count (number/volume) 3.87 10*6/uL 4.35-5.85 Venous blood hemoglobin measurement (mass/volume) 9.5 g/dL 13.3-17.7 Blood hematocrit (volume fraction) 31 % 40-54 Automated erythrocyte mean corpuscular volume 80 [ foz_us] 80-99 Automated erythrocyte mean corpuscular h emoglobin (mass per erythrocyte) 25 pg 25-34 Automated erythrocyte mean corpuscular h emoglobin concentration measurement (mass/volume) 31 g/dL 32-36 Automated erythrocyte distribution width ratio 15. 4 % 10.0- 14.5 Automated blood platelet count (count/volume) 130 10*3/uL 130-400 Automated blood platelet mean volume measurement 10.6 [foz_us] 7.4-10.4 Whole blood basic metabolic panel - 07/30 03:15 Serum or plasma sodium measurement (moles/volume) 140 mmol/L 135-145 Serum or plasma potassium measurement (moles/volume) 3.8 mmol/L 3.6-5.0 Serum or plasma chloride measurement (moles/volume) 105 mmol/L 98-107 Carbon dioxide 23 mmol/L 21-32 Serum or plasma anion gap determination (moles/volume) 12 mmol/L 5-14 Serum or plasma urea nitrogen measurement (mass/volume ) 16 mg/dL 7-18 Serum or plasma creatinine measurement (mass/volume) 1.05 mg/dL 0.60-1.30 Serum or plasma urea nitrogen/creatinine mass ratio 15 NRG Serum or plasma creatinine measurement w ith calculation of estimated glomerular filtration rate > NRG Serum or plasma glucose measurement (mass/volume) 116 mg/dL 70-105 Serum or plasma calcium measurement (mass/volume) 9.6 mg/dL 8.5-10.1 Sputum Gram stain - 05/19/17 12:43 GRAM STAIN SPUTUM AND MIXED BACTERIAL ROBIN NRG Bacterial sputum culture - 05/19/17 12:4 3 Bacterial sputum culture [facility] Complete blood count (CBC) with automate d white blood cell (WBC) differential - 05/19/17 13:16 Blood leukocytes automated count (number/volume) 4.9 10*3/uL 4.3-11.0 Blood erythrocytes automated count (number/volume) 3.97 10*6/uL 4.35-5.85 Venous blood hemoglobin measurement (mass/volume) 10.6 g/dL 13.3-17.7 Blood hematocrit (volume fraction) 32 % 40-54 Automated erythrocyte mean corpuscular volume 81 [ foz_us] 80-99 Automated erythrocyte mean corpuscular h emoglobin (mass per erythrocyte) 27 pg 25-34 Automated erythrocyte mean corpuscular h emoglobin concentration measurement (mass/volume) 33 g/dL 32-36 Automated erythrocyte distribution width ratio 16. 5 % 10.0- 14.5 Automated blood platelet count (count/volume) 113 10*3/uL 130-400 Automated blood platelet mean volume measurement 11.0 [foz_us] 7.4-10.4 Automated blood neutrophils/100 leukocytes 91 % 42-75 Automated blood lymphocytes/100 leukocytes 6 % 12-44 Blood monocytes/100 leukocytes 3 % 0-12 Automated blood eosinophils/100 leukocytes 0 % 0-10 Automated blood basophils/100 leukocytes 0 % 0-10 Blood neutrophils automated count (number/volume) 4.4 10*3 1.8-7.8 Blood lymphocytes automated count (number/volume) 0.3 10*3 1.0-4.0 Blood monocytes automated count (number/volume) 0. 1 10*3 0.0-1.0 Automated eosinophil count 0.0 10*3/uL 0 .0-0.3 Automated blood basophil count (count/volume) 0.0 10*3/uL 0.0-0.1 Comprehensive metabolic panel - 05/19/17 13:16 Serum or plasma sodium measurement (moles/volume) 131 mmol/L 135-145 Serum or plasma potassium measurement (moles/volume) 3.9 mmol/L 3.6-5.0 Serum or plasma chloride measurement (moles/volume) 99 mmol/L 98-107 Carbon dioxide 25 mmol/L 21-32 Serum or plasma anion gap determination (moles/volume) 7 mmol/L 5-14 Serum or plasma urea nitrogen measurement (mass/volume ) 17 mg/dL 7-18 Serum or plasma creatinine measurement (mass/volume) 1.23 mg/dL 0.60-1.30 Serum or plasma urea nitrogen/creatinine mass ratio 14 NRG Serum or plasma creatinine measurement w ith calculation of estimated glomerular filtration rate 60 NRG Serum or plasma glucose measurement (mass/volume) 317 mg/dL 70-105 Serum or plasma calcium measurement (mass/volume) 8.7 mg/dL 8.5-10.1 Serum or plasma total bilirubin measurement (mass/volu me) 0.8 mg/dL 0.1-1.0 Serum or plasma alkaline phosphatase aster surement (enzymatic activity/volume) 98 U/L 40-136 Serum or plasma aspartate aminotransfera se measurement (enzymatic activity/volume) 21 U/L 5-34 Serum or plasma alanine aminotransferase measurement (enzymatic activity/volume) 17 U/L 0-55 Serum or plasma protein measurement (mass/volume) 6.5 g/dL 6.4-8.2 Serum or plasma albumin measurement (mass/volume) 3.7 g/dL 3.2-4.5 Serum or plasma C reactive protein measu rement (mass/volume) - 05/19/17 13:16 Serum or plasma C reactive protein measurement (mass/v olume) 8.06 mg/dL 0.00-0.50 Blood manual differential performed dete ction - 05/19/17 13:16 Blood monocytes/100 leukocytes 3 % NRG Manual blood segmented neutrophils/100 leukocytes 91 % NRG Blood band neutrophils/100 leukocytes 3 % NRG Manual blood lymphocytes/100 leukocytes 3 % NRG Manual eosinophils/100 leukocytes in nose 0 % NRG Manual blood basophils/100 leukocytes 0 % NRG Blood anisocytosis detection by light microscopy S LIGHT NRG Blood ovalocytes detection by light microscopy MOD ERATE NRG Bacterial blood culture - 05/19/17 13:16 Bacterial blood culture NG NRG Bacterial blood culture - 05/19/17 13:22 Bacterial blood culture NG NRG Capillary blood glucose measurement by g lucometer (mass/volume) - 05/19/17 13:46 Capillary blood glucose measurement by glucometer (mas s/volume) 304 mg/dL 70-110 Blood lactic acid measurement (moles/vol ume) - 05/19/17 14:32 Blood lactic acid measurement (moles/volume) 1.02 mmol/L 0.50-2.00 Capillary blood glucose measurement by g lucometer (mass/volume) - 05/19/17 16:10 Capillary blood glucose measurement by glucometer (mas s/volume) 392 mg/dL 70-110 Capillary blood glucose measurement by g lucometer (mass/volume) - 05/19/17 21:15 Capillary blood glucose measurement by glucometer (mas s/volume) 471 mg/dL 70-110 Capillary blood glucose measurement by g lucometer (mass/volume) - 05/20/17 05:51 Capillary blood glucose measurement by glucometer (mas s/volume) 428 mg/dL 70-110 Blood CBC with ordered manual differenti al panel - 05/20/17 08:25 Blood leukocytes automated count (number/volume) 2.1 10*3/uL 4.3-11.0 Blood erythrocytes automated count (number/volume) 3.96 10*6/uL 4.35-5.85 Venous blood hemoglobin measurement (mass/volume) 10.2 g/dL 13.3-17.7 Blood hematocrit (volume fraction) 32 % 40-54 Automated erythrocyte mean corpuscular volume 80 [ foz_us] 80-99 Automated erythrocyte mean corpuscular h emoglobin (mass per erythrocyte) 26 pg 25-34 Automated erythrocyte mean corpuscular h emoglobin concentration measurement (mass/volume) 32 g/dL 32-36 Automated erythrocyte distribution width ratio 15. 8 % 10.0- 14.5 Automated blood platelet count (count/volume) 97 1 0*3/uL 130-400 Automated blood platelet mean volume measurement 11.2 [foz_us] 7.4-10.4 Automated blood neutrophils/100 leukocytes 85 % 42-75 Automated blood lymphocytes/100 leukocytes 11 % 12-44 Blood monocytes/100 leukocytes 4 % NRG Automated blood eosinophils/100 leukocytes 0 % 0-10 Automated blood basophils/100 leukocytes 0 % 0-10 Blood neutrophils automated count (number/volume) 1.8 10*3 1.8-7.8 Blood lymphocytes automated count (number/volume) 0.2 10*3 1.0-4.0 Blood monocytes automated count (number/volume) 0. 1 10*3 0.0-1.0 Automated eosinophil count 0.0 10*3/uL 0 .0-0.3 Automated blood basophil count (count/volume) 0.0 10*3/uL 0.0-0.1 Manual blood segmented neutrophils/100 leukocytes 87 % NRG Blood band neutrophils/100 leukocytes 2 % NRG Manual blood lymphocytes/100 leukocytes 7 % NRG Blood ovalocytes detection by light microscopy MOD ERATE NRG Blood dacrocytes detection by light microscopy SLI GHT NRG Whole blood basic metabolic panel - 08/30 08:25 Serum or plasma sodium measurement (moles/volume) 134 mmol/L 135-145 Serum or plasma potassium measurement (moles/volume) 3.3 mmol/L 3.6-5.0 Serum or plasma chloride measurement (moles/volume) 102 mmol/L 98-107 Carbon dioxide 18 mmol/L 21-32 Serum or plasma anion gap determination (moles/volume) 14 mmol/L 5-14 Serum or plasma urea nitrogen measurement (mass/volume ) 25 mg/dL 7-18 Serum or plasma creatinine measurement (mass/volume) 1.31 mg/dL 0.60-1.30 Serum or plasma urea nitrogen/creatinine mass ratio 19 NRG Serum or plasma creatinine measurement w ith calculation of estimated glomerular filtration rate 55 NRG Serum or plasma glucose measurement (mass/volume) 542 mg/dL 70-105 Serum or plasma calcium measurement (mass/volume) 8.8 mg/dL 8.5-10.1 THYROID STIMULATING HORMONE - 05/20/17 0 8:25 THYROID STIMULATING HORMONE 0.11 u[iU]/mL 0.35-4.94 Capillary blood glucose measurement by g lucometer (mass/volume) - 05/20/17 09:33 Capillary blood glucose measurement by glucometer (mas s/volume) 469 mg/dL 70-110 Capillary blood glucose measurement by g lucometer (mass/volume) - 05/20/17 15:55 Capillary blood glucose measurement by glucometer (mas s/volume) 408 mg/dL 70-110 Capillary blood glucose measurement by g lucometer (mass/volume) - 05/20/17 20:29 Capillary blood glucose measurement by glucometer (mas s/volume) 318 mg/dL 70-110 Blood CBC with ordered manual differenti al panel - 05/21/17 05:51 Blood leukocytes automated count (number/volume) 4.5 10*3/uL 4.3-11.0 Blood erythrocytes automated count (number/volume) 3.95 10*6/uL 4.35-5.85 Venous blood hemoglobin measurement (mass/volume) 10.3 g/dL 13.3-17.7 Blood hematocrit (volume fraction) 31 % 40-54 Automated erythrocyte mean corpuscular volume 80 [ foz_us] 80-99 Automated erythrocyte mean corpuscular h emoglobin (mass per erythrocyte) 26 pg 25-34 Automated erythrocyte mean corpuscular h emoglobin concentration measurement (mass/volume) 33 g/dL 32-36 Automated erythrocyte distribution width ratio 15. 4 % 10.0- 14.5 Automated blood platelet count (count/volume) 121 10*3/uL 130-400 Automated blood platelet mean volume measurement 10.7 [foz_us] 7.4-10.4 Automated blood neutrophils/100 leukocytes 88 % 42-75 Automated blood lymphocytes/100 leukocytes 8 % 12-44 Blood monocytes/100 leukocytes 8 % NRG Automated blood eosinophils/100 leukocytes 0 % 0-10 Automated blood basophils/100 leukocytes 0 % 0-10 Blood neutrophils automated count (number/volume) 4.0 10*3 1.8-7.8 Blood lymphocytes automated count (number/volume) 0.4 10*3 1.0-4.0 Blood monocytes automated count (number/volume) 0. 2 10*3 0.0-1.0 Automated eosinophil count 0.0 10*3/uL 0 .0-0.3 Automated blood basophil count (count/volume) 0.0 10*3/uL 0.0-0.1 Manual blood segmented neutrophils/100 leukocytes 83 % NRG Manual blood lymphocytes/100 leukocytes 9 % NRG Blood ovalocytes detection by light microscopy MOD ERATE NRG Blood poikilocytosis detection by light microscopy 0 NRG Whole blood basic metabolic panel - 09/30 05:51 Serum or plasma sodium measurement (moles/volume) 137 mmol/L 135-145 Serum or plasma potassium measurement (moles/volume) 3.3 mmol/L 3.6-5.0 Serum or plasma chloride measurement (moles/volume) 105 mmol/L 98-107 Carbon dioxide 23 mmol/L 21-32 Serum or plasma anion gap determination (moles/volume) 9 mmol/L 5-14 Serum or plasma urea nitrogen measurement (mass/volume ) 29 mg/dL 7-18 Serum or plasma creatinine measurement (mass/volume) 1.14 mg/dL 0.60-1.30 Serum or plasma urea nitrogen/creatinine mass ratio 25 NRG Serum or plasma creatinine measurement w ith calculation of estimated glomerular filtration rate > NRG Serum or plasma glucose measurement (mass/volume) 212 mg/dL 70-105 Serum or plasma calcium measurement (mass/volume) 8.6 mg/dL 8.5-10.1 Capillary blood glucose measurement by g lucometer (mass/volume) - 05/21/17 06:41 Capillary blood glucose measurement by glucometer (mas s/volume) 220 mg/dL 70-110 MICROALBUMIN/CREATININE RATIO, URINE - 0 05/25/17 10:21 CREATININE, RANDOM URINE 31 mg/dL 20-37 0 MICROALBUMIN 13.0 mg/dL See Note: MICROALBUMIN/CREATININE RATIO, RANDOM URINE 419 mcg/mg creat <30 [id number] - 10/17/17 12:28 Serum or plasma urea nitrogen measurement (mass/volume ) 17 mg/dL 7-18 Serum or plasma creatinine measurement (mass/volume) 1.19 mg/dL 0.60-1.30 Serum or plasma urea nitrogen/creatinine mass ratio 14 NRG Serum or plasma creatinine measurement w ith calculation of estimated glomerular filtration rate > NRG LIPID PANEL - 10/18/17 08:07 CHOLESTEROL, TOTAL 130 mg/dL <200 HDL CHOLESTEROL 26 mg/dL >40 TRIGLYCERIDES 179 mg/dL <150 LDL-CHOLESTEROL 76 mg/dL (calc) NRG CHOL/HDLC RATIO 5.0 (calc) <5.0 NON HDL CHOLESTEROL 104 mg/dL (calc) <13 0 CMP - 10/18/17 08:07 GLUCOSE 159 mg/dL 65-99 UREA NITROGEN (BUN) 16 mg/dL 7-25 CREATININE 1.15 mg/dL 0.70-1.25 eGFR NON-AFR. FIJIAN 68 mL/min/1.73m2 > OR = 60 eGFR 79 mL/min/1.73m2 > OR = 60 BUN/CREATININE RATIO NOT APPLICABLE (calc) 6-22 SODIUM 136 mmol/L 135-146 POTASSIUM 3.5 mmol/L 3.5-5.3 CHLORIDE 103 mmol/L 98-110 CARBON DIOXIDE 26 mmol/L 20-32 CALCIUM 9.3 mg/dL 8.6-10.3 PROTEIN, TOTAL 6.8 g/dL 6.1-8.1 ALBUMIN 4.3 g/dL 3.6-5.1 GLOBULIN 2.5 g/dL (calc) 1.9-3.7 ALBUMIN/GLOBULIN RATIO 1.7 (calc) 1.0-2. 5 BILIRUBIN, TOTAL 0.7 mg/dL 0.2-1.2 ALKALINE PHOSPHATASE 91 U/L 40-115 AST 13 U/L 10-35 ALT 10 U/L 9-46 CBC - 10/18/17 08:07 WHITE BLOOD CELL COUNT 4.7 Thousand/uL 3 .8-10.8 RED BLOOD CELL COUNT 4.46 Million/uL 4.2 0-5.80 HEMOGLOBIN 11.6 g/dL 13.2-17.1 HEMATOCRIT 36.2 % 38.5-50.0 MCV 81.2 fL 80.0-100.0 MCH 26.0 pg 27.0-33.0 MCHC 32.0 g/dL 32.0-36.0 RDW 15.2 % 11.0-15.0 PLATELET COUNT 120 Thousand/uL 140-400 MPV 10.4 fL 7.5-12.5 ABSOLUTE NEUTROPHILS 3163 cells/uL 1500- 7800 ABSOLUTE LYMPHOCYTES 733 cells/uL 850-39 00 ABSOLUTE MONOCYTES 531 cells/uL 200-950 ABSOLUTE EOSINOPHILS 221 cells/uL 15-500 ABSOLUTE BASOPHILS 52 cells/uL 0-200 NEUTROPHILS 67.3 % NRG LYMPHOCYTES 15.6 % NRG MONOCYTES 11.3 % NRG EOSINOPHILS 4.7 % NRG BASOPHILS 1.1 % NRG TSH - 10/18/17 08:07 TSH 0.61 mIU/L 0.40-4.50 Capillary blood glucose measurement by g lucometer (mass/volume) - 11/01/17 07:43 Capillary blood glucose measurement by glucometer (mas s/volume) 252 mg/dL 70-110 Sputum Gram stain - 11/01/17 08:20 Sputum Gram stain REPORT 2018, 1006. NRG Bacteria identification in bronchial spe cimen by aerobe culture - 11/01/17 08:20 QUANTITY OF GROWTH . NRG Bacteria identification in bronchial specimen by aerob e culture SEE COMMEN NRG FTX;REPORTABLE >10,000 CFU/ML NRG C FUNGUS SPUTUM FLUID TISSUE - 11/01/17 08:20 C FUNGUS SPUTUM FLUID TISSUE NG N RG Mycobacterium species detection by organ ism specific culture - 11/01/17 08:20 QUANTITY OF GROWTH . NRG Mycobacterium species detection by organism specific c ulture SEE COMMEN NRG Sputum Gram stain - 11/01/17 08:21 Sputum Gram stain REPORT 11-02-2017, 1006. NRG Bacteria identification in bronchial spe cimen by aerobe culture - 11/01/17 08:21 QUANTITY OF GROWTH . NRG Bacteria identification in bronchial specimen by aerob e culture SEE COMMEN NRG FTX;REPORTABLE >10,000 CFU/ML, SUSCEPTIBILITY REPO RTED NRG Mycobacterium species detection by organ ism specific culture - 11/01/17 08:21 QUANTITY OF GROWTH . NRG Mycobacterium species detection by organism specific c ulture SEE COMMEN NRG RML Sensitivity Panel - 11/01/17 08:21 Gentamicin susceptibility test by minimum inhibitory c oncentration <= NRG Levofloxacin susceptibility test by minimum inhibitory concentration <= NRG Tobramycin susceptibility test by minimum inhibitory c oncentration S NRG Piperacillin/tazobactam susceptibility t est by minimum inhibitory concentration = NRG Ciprofloxacin susceptibility test by minimum inhibitor y concentration <= NRG Meropenem susceptibility test by minimum inhibitory co ncentration <= NRG Aztreonam susceptibility test by minimum inhibitory co ncentration 8 NRG Cefepime susceptibility test by minimum inhibitory con centration 4 NRG Imipenem susceptibility test by minimum inhibitory con centration 1 NRG Ceftazidime susceptibility test by minimum inhibitory concentration 4 NRG C FUNGUS SPUTUM FLUID TISSUE - 11/01/17 08:21 C FUNGUS SPUTUM FLUID TISSUE NG N RG Automated blood complete blood count (he mogram) panel - 12/06/17 07:50 Blood leukocytes automated count (number/volume) 2.4 10*3/uL 4.3-11.0 Blood erythrocytes automated count (number/volume) 4.01 10*6/uL 4.35-5.85 Venous blood hemoglobin measurement (mass/volume) 10.6 g/dL 13.3-17.7 Blood hematocrit (volume fraction) 32 % 40-54 Automated erythrocyte mean corpuscular volume 80 [ foz_us] 80-99 Automated erythrocyte mean corpuscular h emoglobin (mass per erythrocyte) 26 pg 25-34 Automated erythrocyte mean corpuscular h emoglobin concentration measurement (mass/volume) 33 g/dL 32-36 Automated erythrocyte distribution width ratio 15. 4 % 10.0- 14.5 Automated blood platelet count (count/volume) 83 1 0*3/uL 130-400 Automated blood platelet mean volume measurement 10.1 [foz_us] 7.4-10.4 PT panel in platelet poor plasma by coag ulation assay - 12/06/17 07:50 Prothrombin time (PT) in platelet poor plasma by coagu lation assay 14.0 s 12.2-14.7 INR in platelet poor plasma or blood by coagulation as say 1.1 0.8-1.4 Activated partial thromboplastin time (a PTT) in platelet poor plasma bycoagulation assay - 12/06/17 07:50 Activated partial thromboplastin time (a PTT) in platelet poor plasma bycoagulation assay 22 s 24-35 Complete urinalysis with reflex to cultu re - 12/13/17 06:57 Urine color determination YELLOW NRG Urine clarity determination CLEAR NR G Urine pH measurement by test strip 6.5 5-9 Specific gravity of urine by test strip 1.015 1.016-1.022 Urine protein assay by test strip, semi-quantitative 3+ NEGATIVE Urine glucose detection by automated test strip 4+ NEGATIVE Erythrocytes detection in urine sediment by light micr oscopy NEGATIVE NEGATIVE Urine ketones detection by automated test strip NE GATIVE NEGATIVE Urine nitrite detection by test strip NEGATIVE NEGATIVE Urine total bilirubin detection by test strip NEGA TIVE NEGATIVE Urine urobilinogen measurement by automated test strip (mass/volume) 1 mg/dL NORMAL Urine leukocyte esterase detection by dipstick NEG ATIVE NEGATIVE Automated urine sediment erythrocyte cou nt by microscopy (number/high power field) RARE NRG Automated urine sediment leukocyte count by microscopy (number/high power field) NONE NRG Bacteria detection in urine sediment by light microsco py NEGATIVE NRG Squamous epithelial cells detection in u rine sediment by light microscopy RARE NRG Crystals detection in urine sediment by light microsco py NONE NRG Casts detection in urine sediment by light microscopy NONE NRG Mucus detection in urine sediment by light microscopy NEGATIVE NRG Complete urinalysis with reflex to culture NO NRG Automated blood complete blood count (he mogram) panel - 12/13/17 07:12 Blood leukocytes automated count (number/volume) 4.4 10*3/uL 4.3-11.0 Blood erythrocytes automated count (number/volume) 4.45 10*6/uL 4.35-5.85 Venous blood hemoglobin measurement (mass/volume) 11.6 g/dL 13.3-17.7 Blood hematocrit (volume fraction) 36 % 40-54 Automated erythrocyte mean corpuscular volume 80 [ foz_us] 80-99 Automated erythrocyte mean corpuscular h emoglobin (mass per erythrocyte) 26 pg 25-34 Automated erythrocyte mean corpuscular h emoglobin concentration measurement (mass/volume) 33 g/dL 32-36 Automated erythrocyte distribution width ratio 15. 7 % 10.0- 14.5 Automated blood platelet count (count/volume) 103 10*3/uL 130-400 Automated blood platelet mean volume measurement 10.9 [foz_us] 7.4-10.4 PT panel in platelet poor plasma by coag ulation assay - 12/13/17 07:12 Prothrombin time (PT) in platelet poor plasma by coagu lation assay 13.4 s 12.2-14.7 INR in platelet poor plasma or blood by coagulation as say 1.0 0.8-1.4 Activated partial thromboplastin time (a PTT) in platelet poor plasma bycoagulation assay - 12/13/17 07:12 Activated partial thromboplastin time (a PTT) in platelet poor plasma bycoagulation assay 25 s 24-35 Comprehensive metabolic panel - 12/13/17 07:12 Serum or plasma sodium measurement (moles/volume) 135 mmol/L 135-145 Serum or plasma potassium measurement (moles/volume) 4.2 mmol/L 3.6-5.0 Serum or plasma chloride measurement (moles/volume) 100 mmol/L 98-107 Carbon dioxide 23 mmol/L 21-32 Serum or plasma anion gap determination (moles/volume) 12 mmol/L 5-14 Serum or plasma urea nitrogen measurement (mass/volume ) 15 mg/dL 7-18 Serum or plasma creatinine measurement (mass/volume) 1.33 mg/dL 0.60-1.30 Serum or plasma urea nitrogen/creatinine mass ratio 11 NRG Serum or plasma creatinine measurement w ith calculation of estimated glomerular filtration rate 54 NRG Serum or plasma glucose measurement (mass/volume) 373 mg/dL 70-105 Serum or plasma calcium measurement (mass/volume) 9.5 mg/dL 8.5-10.1 Serum or plasma total bilirubin measurement (mass/volu me) 0.8 mg/dL 0.1-1.0 Serum or plasma alkaline phosphatase aster surement (enzymatic activity/volume) 97 U/L 40-136 Serum or plasma aspartate aminotransfera se measurement (enzymatic activity/volume) 14 U/L 5-34 Serum or plasma alanine aminotransferase measurement (enzymatic activity/volume) 16 U/L 0-55 Serum or plasma protein measurement (mass/volume) 7.3 g/dL 6.4-8.2 Serum or plasma albumin measurement (mass/volume) 4.3 g/dL 3.2-4.5 CALCIUM CORRECTED 9.3 mg/dL 8.5-10.1 Lipid 1996 panel - 12/13/17 07:12 Serum or plasma triglyceride measurement (mass/volume) 186 mg/dL <150 Serum or plasma cholesterol measurement (mass/volume) 145 mg/dL < 200 Serum or plasma cholesterol in HDL measurement (mass/v olume) 25 mg/dL 40-60 Cholesterol in LDL [mass/volume] in serum or plasma by direct assay 94 mg/dL 1-129 Serum or plasma cholesterol in VLDL measurement (mass/ volume) 37 mg/dL 5-40 Methicillin resistant Staphylococcus aur eus (MRSA) screening culture - 12/13/17 07:13 Methicillin resistant Staphylococcus aureus (MRSA) scr eening culture NEG [facility] Influenza virus A and B antigen detectio n - 04/09/18 12:31 FLU RESULT NEGATIVE FOR INFLUENZA A AND B ANTIGENS BY IA [facility] Complete blood count (CBC) with automate d white blood cell (WBC) differential - 04/09/18 13:00 Blood leukocytes automated count (number/volume) 5.5 10*3/uL 4.3-11.0 Blood erythrocytes automated count (number/volume) 4.26 10*6/uL 4.35-5.85 Venous blood hemoglobin measurement (mass/volume) 11.7 g/dL 13.3-17.7 Blood hematocrit (volume fraction) 35 % 40-54 Automated erythrocyte mean corpuscular volume 81 [ foz_us] 80-99 Automated erythrocyte mean corpuscular h emoglobin (mass per erythrocyte) 27 pg 25-34 Automated erythrocyte mean corpuscular h emoglobin concentration measurement (mass/volume) 34 g/dL 32-36 Automated erythrocyte distribution width ratio 16. 0 % 10.0- 14.5 Automated blood platelet count (count/volume) 111 10*3/uL 130-400 Automated blood platelet mean volume measurement 10.3 [foz_us] 7.4-10.4 Automated blood neutrophils/100 leukocytes 81 % 42-75 Automated blood lymphocytes/100 leukocytes 11 % 12-44 Blood monocytes/100 leukocytes 7 % 0-12 Automated blood eosinophils/100 leukocytes 1 % 0-10 Automated blood basophils/100 leukocytes 0 % 0-10 Blood neutrophils automated count (number/volume) 4.5 10*3 1.8-7.8 Blood lymphocytes automated count (number/volume) 0.6 10*3 1.0-4.0 Blood monocytes automated count (number/volume) 0. 4 10*3 0.0-1.0 Automated eosinophil count 0.1 10*3/uL 0 .0-0.3 Automated blood basophil count (count/volume) 0.0 10*3/uL 0.0-0.1 Comprehensive metabolic panel - 04/09/18 13:00 Serum or plasma sodium measurement (moles/volume) 131 mmol/L 135-145 Serum or plasma potassium measurement (moles/volume) 3.2 mmol/L 3.6-5.0 Serum or plasma chloride measurement (moles/volume) 93 mmol/L 98-107 Carbon dioxide 26 mmol/L 21-32 Serum or plasma anion gap determination (moles/volume) 12 mmol/L 5-14 Serum or plasma urea nitrogen measurement (mass/volume ) 19 mg/dL 7-18 Serum or plasma creatinine measurement (mass/volume) 1.61 mg/dL 0.60-1.30 Serum or plasma urea nitrogen/creatinine mass ratio 12 NRG Serum or plasma creatinine measurement w ith calculation of estimated glomerular filtration rate 44 NRG Serum or plasma glucose measurement (mass/volume) 430 mg/dL 70-105 Serum or plasma calcium measurement (mass/volume) 9.0 mg/dL 8.5-10.1 Serum or plasma total bilirubin measurement (mass/volu me) 1.1 mg/dL 0.1-1.0 Serum or plasma alkaline phosphatase aster surement (enzymatic activity/volume) 114 U/L 40-136 Serum or plasma aspartate aminotransfera se measurement (enzymatic activity/volume) 16 U/L 5-34 Serum or plasma alanine aminotransferase measurement (enzymatic activity/volume) 14 U/L 0-55 Serum or plasma protein measurement (mass/volume) 6.9 g/dL 6.4-8.2 Serum or plasma albumin measurement (mass/volume) 3.8 g/dL 3.2-4.5 CALCIUM CORRECTED 9.2 mg/dL 8.5-10.1 Serum or plasma C reactive protein measu rement (mass/volume) - 04/09/18 13:00 Serum or plasma C reactive protein measurement (mass/v olume) 24.80 mg/dL 0.00-0.50 Serum or plasma lithium measurement (mol es/volume) - 04/09/18 13:00 BNP level 55.9 pg/mL <100.0 [id number] - 06/11/18 09:08 Serum or plasma urea nitrogen measurement (mass/volume ) 15 mg/dL 7-18 Serum or plasma creatinine measurement (mass/volume) 1.12 mg/dL 0.60-1.30 Serum or plasma urea nitrogen/creatinine mass ratio 13 NRG Serum or plasma creatinine measurement w ith calculation of estimated glomerular filtration rate > NRG Capillary blood glucose measurement by g lucometer (mass/volume) - 07/31/18 06:22 Capillary blood glucose measurement by glucometer (mas s/volume) 391 mg/dL 70-110 Methicillin resistant Staphylococcus aur eus (MRSA) screening culture - 07/31/18 06:40 Methicillin resistant Staphylococcus aureus (MRSA) scr eening culture NEG NRG Automated blood complete blood count (he mogram) panel - 09/28/18 07:35 Blood leukocytes automated count (number/volume) 2.7 10*3/uL 4.3-11.0 Blood erythrocytes automated count (number/volume) 4.31 10*6/uL 4.35-5.85 Venous blood hemoglobin measurement (mass/volume) 11.5 g/dL 13.3-17.7 Blood hematocrit (volume fraction) 36 % 40-54 Automated erythrocyte mean corpuscular volume 84 [ foz_us] 80-99 Automated erythrocyte mean corpuscular h emoglobin (mass per erythrocyte) 27 pg 25-34 Automated erythrocyte mean corpuscular h emoglobin concentration measurement (mass/volume) 32 g/dL 32-36 Automated erythrocyte distribution width ratio 15. 0 % 10.0- 14.5 Automated blood platelet count (count/volume) 85 1 0*3/uL 130-400 Automated blood platelet mean volume measurement 10.0 [foz_us] 7.4-10.4 PT panel in platelet poor plasma by coag ulation assay - 09/28/18 07:35 Prothrombin time (PT) in platelet poor plasma by coagu lation assay 13.9 s 12.2-14.7 INR in platelet poor plasma or blood by coagulation as say 1.0 0.8-1.4 Activated partial thromboplastin time (a PTT) in platelet poor plasma bycoagulation assay - 09/28/18 07:35 Activated partial thromboplastin time (a PTT) in platelet poor plasma bycoagulation assay 26 s 24-35 Capillary blood glucose measurement by g lucometer (mass/volume) - 09/28/18 08:14 Capillary blood glucose measurement by glucometer (mas s/volume) 83 mg/dL 70-110 LIPID PANEL - 01/22/19 08:32 CHOLESTEROL, TOTAL 185 mg/dL <200 HDL CHOLESTEROL 61 mg/dL >40 TRIGLYCERIDES 239 mg/dL <150 LDL-CHOLESTEROL 91 mg/dL (calc) NRG CHOL/HDLC RATIO 3.0 (calc) <5.0 NON HDL CHOLESTEROL 124 mg/dL (calc) <13 0 CMP - 01/22/19 08:32 GLUCOSE 163 mg/dL 65-99 UREA NITROGEN (BUN) 14 mg/dL 7-25 CREATININE 0.92 mg/dL 0.70-1.25 eGFR NON-AFR. FIJIAN 88 mL/min/1.73m2 > OR = 60 eGFR 102 mL/min/1.73m2 > OR = 60 BUN/CREATININE RATIO NOT APPLICABLE (calc) 6-22 SODIUM 139 mmol/L 135-146 POTASSIUM 4.0 mmol/L 3.5-5.3 CHLORIDE 101 mmol/L 98-110 CARBON DIOXIDE 29 mmol/L 20-32 CALCIUM 9.1 mg/dL 8.6-10.3 PROTEIN, TOTAL 6.2 g/dL 6.1-8.1 ALBUMIN 3.9 g/dL 3.6-5.1 GLOBULIN 2.3 g/dL (calc) 1.9-3.7 ALBUMIN/GLOBULIN RATIO 1.7 (calc) 1.0-2. 5 BILIRUBIN, TOTAL 0.7 mg/dL 0.2-1.2 ALKALINE PHOSPHATASE 79 U/L 40-115 AST 24 U/L 10-35 ALT 22 U/L 9-46 CBC - 01/22/19 08:32 WHITE BLOOD CELL COUNT 4.9 Thousand/uL 3 .8-10.8 RED BLOOD CELL COUNT 4.21 Million/uL 4.2 0-5.80 HEMOGLOBIN 12.3 g/dL 13.2-17.1 HEMATOCRIT 37.7 % 38.5-50.0 MCV 89.5 fL 80.0-100.0 MCH 29.2 pg 27.0-33.0 MCHC 32.6 g/dL 32.0-36.0 RDW 16.4 % 11.0-15.0 PLATELET COUNT 91 Thousand/uL 140-400 MPV 10.6 fL 7.5-12.5 ABSOLUTE NEUTROPHILS 3704 cells/uL 1500- 7800 ABSOLUTE LYMPHOCYTES 613 cells/uL 850-39 00 ABSOLUTE MONOCYTES 431 cells/uL 200-950 ABSOLUTE EOSINOPHILS 113 cells/uL 15-500 ABSOLUTE BASOPHILS 39 cells/uL 0-200 NEUTROPHILS 75.6 % NRG LYMPHOCYTES 12.5 % NRG MONOCYTES 8.8 % NRG EOSINOPHILS 2.3 % NRG BASOPHILS 0.8 % NRG TSH - 01/22/19 08:32 TSH 1.65 mIU/L 0.40-4.50 Encounters ACCT No. Visit Date/Time Discharge Status Pt. Type Provider Facility Loc./Unit Complaint [id number] 04/05/2019 08:00:00 04/05/2019 23:59: 59 CLS Outpatient ROCKY MORRIS APRN [facility] [id number] 01/22/2019 09:00:00 Document Registration [id number] 10/18/2017 08:40:00 Document Registration [id number] 05/25/2017 09:20:00 Document Registration [id number] 04/08/2019 11:56:00 020 23:59:59 CLS Outpatient ANASTACIA SEGOVIA, NHUNG Nichols [facility] CARD CAD,COPD,DIABETES MELLITUS,HERNIA,HYPERLIPIDEMIA [id number] 04/01/2019 06:48:00 23:59:59 CLS Outpatient ANASTACIA SEGOVIA, NHUNG Nichols [facility] CARD CAD,COPD,DIABETES MELLITUS,HERNIA,HYPERLIPIDEMIA [id number] 12/18/2018 08:53:00 23:59:59 CLS Outpatient ANTHONY FATIMA APRN [facility] RAD COPD [id number] 11/01/2018 00:10:00 23:59:59 CLS Preadmit ENMANUEL GUILLEN MD [facility] ONC [id number] 10/09/2018 09:11:00 00:01:00 DIS Outpatient ENMANUEL GUILLEN MD [facility] ONC [id number] 09/28/2018 06:43:00 13:13:00 DIS Outpatient ENMANUEL GUILLEN MD [facility] SDC ADENOCARCINOMA [id number] 09/19/2018 06:49:00 23:59:59 CLS Outpatient ANTHONY FATIMA APRN [facility] RAD LUNG NODULE [id number] 07/31/2018 05:55:00 08:47:00 DIS Outpatient FLORES POWERS DPM [facility] SDC OSTEOMYLITIS 2N D DIGIT RIGHT FOOT [id number] 07/25/2018 09:40:00 13:41:00 DIS Outpatient FLORES POWERS DPM [facility] PREOP OSTEOMYLITIS 2N D DIGIT RIGHT FOOT [id number] 06/20/2018 13:02:00 00:01:00 DIS Outpatient ENMANUEL GUILLEN MD [facility] ONC [id number] 06/14/2018 07:57:00 23:59:59 CLS Outpatient ANTHONY FATIMA APRN [facility] RAD COPD [id number] 06/11/2018 08:58:00 23:59:59 CLS Outpatient ANTHONY FATIMA APRN [facility] LAB ROUTINE LAB [id number] 05/17/2018 08:22:00 23:59:59 CLS Outpatient ANTHONY FATIMA APRN [facility] RAD J9620,J30.9,G47 .30 [id number] 04/09/2018 12:19:00 17:27:00 DIS Emergency VALENTINE WALTERS MD Via [facility] ER FLU SYMPTOMS [id number] 03/20/2018 08:32:00 00:01:00 DIS Outpatient ENMANUEL GUILLEN MD [facility] ONC [id number] 03/15/2018 07:20:00 23:59:59 CLS Outpatient ENMANUEL GUILLEN MD [facility] RAD ADENOCARCINOMA OF RIGHT LUNG [id number] 12/13/2017 06:43:00 13:00:00 DIS Outpatient NHUNG GALAVIZ MD Via [facility] CATH ABN STRESS,CAD,HTN [id number] 12/06/2017 07:00:00 09:35:00 DIS Outpatient VIRGILIO HARKINS DO [facility] RAD LUNG MASS,COPD [id number] 12/04/2017 06:57:00 23:59:59 CLS Outpatient NHUNG GALAVIZ MD [facility] CARD CAD [id number] 12/01/2017 09:11:00 23:59:59 CLS Outpatient NHUNG GALAVIZ MD [facility] CARD CAD [id number] 12/01/2017 09:09:00 23:59:59 CLS Outpatient ANTHONY FATIMA APRN [facility] RT COPD,LUNG MASS, DYSPNEA [id number] 11/28/2017 08:07:00 23:59:59 CLS Outpatient VIRGILIO HARKINS DO [facility] RAD LUNG MASS-PULMONARY EMP HYSEMA [id number] 11/27/2017 09:18:00 018 23:59:59 CLS Outpatient ANTHONY FATIMA APRN [facility] RAD PSEUDOMONAS INF ECTION [id number] 11/09/2017 13:55:00 018 23:59:59 CLS Outpatient ANTHONY FATIMA APRN [facility] LAB B96.5 [id number] 11/01/2017 06:49:00 018 09:35:00 DIS Outpatient VIRGILIO HARKINS DO [facility] ENDO LUNG MASS [id number] 10/25/2017 06:10:00 018 09:50:00 DIS Outpatient VIRGILIO HARKINS DO [facility] PREOP EBUS [id number] 10/17/2017 12:11:00 018 23:59:59 CLS Outpatient ANTHONY FATIMA APRN [facility] RAD J84.9 ILD [id number] 05/19/2017 11:29:00 018 09:40:00 DIS Inpatient JONI WAYNE DO, V [facility] 4TH EXACERBATION COPD [id number] 08/17/2016 06:50:00 017 08:40:00 DIS Outpatient ANASTACIA SEGOVIA, NHUNG Nichols [facility] CATH ABN STRESS TEST,SOB,CP [id number] 08/10/2016 07:29:00 017 23:59:59 CLS Outpatient ALIZE ROMO [facility] CARD CAD I25.10 [id number] 03/21/2016 19:05:00 017 15:41:00 DIS Inpatient NAT VELA DO, V [facility] 4TH ANASARCA,ACUTE RENAL INSUFFICIENCY,DEBILITY,COPD [id number] 01/16/2016 04:50:00 016 12:27:00 DIS Inpatient GABRIEL CONWAY MD [facility] 4TH HEART FAILURE,PNEUMONIA LEFT BASE [id number] 10/01/2015 10:10:00 016 23:59:59 CLS Outpatient ANTHONY FATIMA APRN [facility] RAD COPD,ILD [id number] 07/14/2015 08:18:00 23:59:59 CLS Outpatient VIRGILIO HARKINS DO [facility] RAD LUNG NODULE [id number] 06/17/2015 07:51:00 23:59:59 CLS Outpatient ALIZE ROMO [facility] RAD CAROTID ART VERONICA STENOSIS [id number] 06/17/2015 07:47:00 23:59:59 CLS Outpatient VIRGILIO HARKINS DO [facility] RAD COPD,DYSPNEA,PNEUMONIA [id number] 06/08/2015 00:07:00 23:59:59 CLS Preadmit ENMANUEL GUILLEN MD [facility] ONC [id number] 03/09/2015 08:21:00 016 00:01:00 DIS Outpatient ENMANUEL GUILLEN MD [facility] ONC [id number] 05/28/2015 08:26:00 23:59:59 CLS Outpatient ANTHONY FATIMA APRN [facility] RAD COPD,PULMONARY EMPHYSEMA [id number] 05/22/2015 08:42:00 23:59:59 CLS Outpatient ANTHONY FATIMA APRN [facility] RAD COPD,APNEA,DYSN EA [id number] 04/10/2015 13:10:00 18:34:00 DIS Inpatient PAULETTE MCGRATH MD [facility] 4TH PNEUMONIA,CHF [id number] 04/04/2015 06:31:00 13:02:00 DIS Inpatient PAULETTE MCGRATH MD [facility] 4TH PNEUMONIA:CHF;HTN [id number] 03/11/2015 07:59:00 23:59:59 CLS Outpatient MINDY SEGOVIA, ENMANUEL [facility] RAD SPLENOMEGALY [id number] 02/25/2015 09:19:00 016 10:29:00 DIS Outpatient NELLI SEGOVIA, ANA fatima [facility] ONC [id number] 10/03/2014 08:15:00 015 09:00:00 DIS Emergency CARMELA FISHER MD [facility] ER SUTURE REMOVAL [id number] 09/21/2014 12:21:00 015 13:38:00 DIS Emergency KAILEY MCKEON APRN [facility] ER R KNEE LACERATION [id number] 09/10/2014 08:10:00 015 23:59:59 CLS Outpatient ANTHONY FATIMA APRN [facility] RT COPD,CAD [id number] 08/12/2014 15:00:00 015 23:59:59 CLS Preadmit VIRGILIO HARKINS DO [facility] PULM COPD DYSPNEA [id number] 08/05/2014 08:54:00 015 09:20:00 DIS Inpatient PAULETTE MCGRATH MD [facility] 4TH COPD-AE [id number] 07/10/2014 08:00:00 015 00:01:00 DIS Outpatient VIRGILIO HARKINS DO [facility] PULM COPD DYSPNEA [id number] 04/09/2014 08:15:00 015 23:59:59 CLS Outpatient NHUNG GALAVIZ MD [facility] CARD CAD,CP,HTN [id number] 03/26/2014 08:06:00 015 23:59:59 CLS Outpatient NHUNG GALAVIZ MD [facility] CARD CAD,CP ,HTN [id number] 01/14/2014 10:38:00 014 23:59:59 CLS Outpatient PAULETTE MCGRATH MD [facility] RAD S/P APPY W/PERSISTANT R LQ PAIN [id number] 01/02/2014 14:41:00 014 10:35:00 DIS Outpatient CHERRIE SEGOVIA, SABINE Neumann [facility] ACUTE APPENDICITIS [id number] 01/02/2014 10:29:00 014 23:59:59 CLS Outpatient RAMILA SEGOVIA, PAULETTE R [facility] RAD R LQ PAIN [id number] 06/18/2013 07:56:00 23:59:59 CLS Outpatient AQUILES CREWS APRN [facility] QUICK [id number] 01/07/2013 08:54:00 00:01:00 DIS Outpatient ENMANUEL GUILLEN MD [facility] ONC [id number] 07/10/2012 08:07:00 013 00:01:00 DIS Outpatient KAREN TALAMANTES [facility] CARD PALPITATIONS [id number] 09/06/2012 06:00:00 013 09:50:00 DIS Outpatient FLORES POWERS DPM [facility] SDC EXOSTOSIS RIGHT HALLUX [id number] 08/30/2012 08:38:00 23:59:59 CLS Outpatient FLORES POWERS DPM [facility] PREOP EXOSTOSIS RIGHT HALLUX [id number] 08/23/2012 21:00:00 013 06:00:00 DIS Outpatient ZAHRA GILLETTE [facility] SLEEP RACHEL [id number] 08/13/2012 08:16:00 23:59:59 CLS Outpatient ALIZE ROMO [facility] LAB ELEVATED LF T [id number] 07/30/2012 06:53:00 23:59:59 CLS Outpatient PB SEGOVIA FACC, RUSSELL COTTON CC DS [facility] LAB FASTING LIP ID PANEL,HEPATIC PANEL [id number] 07/02/2012 07:07:00 23:59:59 CLS Outpatient [facility] ALIZE IVORY [facility] RAD CAD,HYPERTE NSION DM [id number] 06/18/2012 07:43:00 23:59:59 CLS Outpatient [facility] ALIZE IVORY [facility] CARD CAD,HYPERTE NSION HLP [id number] 01/23/2020 09:45:00 P EN PreadANTHONY Mcclain APRN Via [facility] RAD ALLERGIC RHINITIS,DYSPNEA ON EXERTION,COPD [id number] 07/28/2015 08:52:00 Document Registration [id number] 08/26/2013 06:34:00 Document Registration [id number] 03/26/2013 10:40:00 Document Registration [id number] 10/09/2012 08:00:00 Document Registration [id number] 05/07/2012 08:56:00 Document Registration [id number] 01/31/2012 09:43:00 Document Registration [id number] 01/18/2012 07:45:00 Document Registration [id number] 12/21/2011 11:11:00 Document Registration [id number] 12/21/2011 08:05:00 Document Registration [id number] 12/09/2011 11:08:00 Document Registration [id number] 11/07/2011 09:48:00 Document Registration [id number] 08/31/2011 06:51:00 Document Registration [id number] 08/24/2011 13:00:00 Document Registration [id number] 08/18/2011 11:15:00 Document Registration [id number] 08/12/2011 10:27:00 Document Registration [id number] 08/05/2011 09:26:00 Document Registration [id number] 08/04/2011 13:05:00 Document Registration [id number] 07/06/2011 12:11:00 Document Registration [id number] 05/11/2011 05:32:00 Document Registration [id number] 05/10/2011 07:41:00 Document Registration [id number] 04/25/2011 05:31:00 Document Registration [id number] 02/02/2011 07:55:00 Document Registration [id number] 02/01/2011 09:28:00 Document Registration [id number] 11/26/2010 10:28:00 Document Registration [id number] 11/18/2010 05:41:00 Document Registration [id number] 11/10/2010 05:31:00 Document Registration [id number] 11/09/2010 07:59:00 Document Registration [id number] 09/27/2010 12:46:00 Document Registration [id number] 09/15/2010 05:36:00 Document Registration [id number] 09/14/2010 08:36:00 Document Registration
[2019-06-11 11:17] LABS: BASOPHILS # (AUTO) 0.1 10^3/uL (0.0-0.1); BASOPHILS % (AUTO) 2 % (0-10); EOSINOPHILS # (AUTO) 0.2 10^3/uL (0.0-0.3); EOSINOPHILS % (AUTO) 5 % (0-10); HEMATOCRIT 35 % (40-54); HEMOGLOBIN 11.6 G/DL (13.3-17.7); LYMPHOCYTES # (AUTO) 0.5 X 10^3 (1.0-4.0); LYMPHOCYTES % (AUTO) 15 % (12-44); MEAN CORPUSCULAR HEMOGLOBIN 29 PG (25-34); MEAN CORPUSCULAR HGB CONC 33 G/DL (32-36); MEAN CORPUSCULAR VOLUME 87 FL (80-99); MONOCYTES # (AUTO) 0.5 X 10^3 (0.0-1.0); MONOCYTES % (AUTO) 16 % (0-12); NEUTROPHILS # (AUTO) 2.1 X 10^3 (1.8-7.8); NEUTROPHILS % (AUTO) 63 % (42-75); PLATELET COUNT 133 10^3/uL (130-400); WHITE BLOOD COUNT 3.4 10^3/uL (4.3-11.0)
[2019-06-11 11:37] LABS: ERYTHROCYTE SEDIMENTATION RATE 35 MM/HR (0-30)
[2019-06-11 11:51] LABS: ALANINE AMINOTRANSFERASE 17 U/L (0-55); ALBUMIN 3.6 GM/DL (3.2-4.5); ALKALINE PHOSPHATASE 91 U/L (40-136); BILIRUBIN,TOTAL 0.8 MG/DL (0.1-1.0); BUN/CREATININE RATIO 10; CALCIUM 8.7 MG/DL (8.5-10.1); CARBON DIOXIDE 18 MMOL/L (21-32); CHLORIDE 102 MMOL/L (98-107); CREATINE KINASE 132 U/L (30-200); CREATININE SERUM 1.07 MG/DL (0.60-1.30); GFR ESTIMATED > 60; GLUCOSE 94 MG/DL (70-105); LIPASE 30 U/L (8-78); MAGNESIUM 1.3 MG/DL (1.6-2.4); POTASSIUM 3.3 MMOL/L (3.6-5.0); SODIUM 136 MMOL/L (135-145); TOTAL PROTEIN 6.4 GM/DL (6.4-8.2)
[2019-06-11 12:14] LABS: PROTHROMBIN TIME PATIENT 13.3 SEC (12.2-14.7)
--- NOTE | 2019-06-11 12:17 | Diagnostic Imaging Report ---
INDICATION: Cough and flulike symptoms. Frontal chest obtained at 1146 a.m. is compared to 09/28/2018. There is post sternotomy change. There is cardiomegaly. There is central vascular congestion with interstitial edema. There is patchy infiltrate in the lung bases. There is a density in the right upper lobe which is similar to the prior study. IMPRESSION: Cardiomegaly and central vascular congestion with some interstitial edema. There is patchy bilateral basilar infiltrate as well as a stable density in the right upper lobe. There is no pneumothorax or gross pleural fluid. Dictated by: Dictated on workstation # [id number]
--- NOTE | 2019-06-11 12:44 | NUR ---
DR STEEN IN WITH PT AT THIS TIME.
[2019-06-11] MEDS ORDERED: AZITHROMYCIN INJECTION 500 MG in NS (IVPB) 250 ML IV ONE (13:00)
[2019-06-11] MEDS ORDERED: cefTRIAXone FOR IV USE 1,000 MG in WATER (STERILE) FOR INJECTION 10 ML IV ONE (13:00)
--- NOTE | 2019-06-11 13:00 | NUR ---
COVID TESTING DONE
[2019-06-11 13:28] LABS: ABG BASE EXCESS 0.7 MMOL/L (-2.5-2.5); ABG OXYGEN SATURATION 97 % (94-100); ABG PCO2 38 MMHG (35-45); ABG PH 7.43 (7.37-7.43); ABG PO2 92 MMHG (79-93); ABG TCO2 25.7 MMOL/L (21.0-31.0)
[2019-06-11 13:29] LABS: ALLENS TEST POSITIVE
[2019-06-11 13:30] LABS: INSPIRED O2 4 L; PATIENT TEMP 37.1; VENTILATOR NO
--- NOTE | 2019-06-11 14:00 | ED Respiratory ---
General Chief Complaint: Cough/Cold/Flu Symptoms Stated Complaint: FEVER,COUGH,SOA Nursing Triage Note: ARRIVED VIA TO [facility] WITH COMPLAINTS OF CONTINOUS COUGH THAT IS WORSE AND A FEVER LAST WEEK. WAS SENT FROM [facility] TO BE EVALUATED. Source: patient (SOMEWHAT LIMITED HISTORIAN) History of Present Illness Date Seen by Provider: Jun 11, 2019 Time Seen by Provider: 11:00 Initial Comments PT ARRIVES VIA POV FROM HOME STATES HE HAS BEEN SICK FOR A WEEK AND A HALF C/O SUBJECTIVE FEVER/SWEATS/CHILLS--FEVER WAS LAST WEEK C/O PRODUCTIVE COUGH WITH COLORED SPUTUM C/O SHORTNESS OF BREATH--PT HAS COPD AND IS O2 DEPENDENT ON 3-4L/NC CONTINUOUSLY--STATES SHORTNESS OF BREATH HAS BEEN WORSE THAN NORMAL NO CHANGE IN CHRONIC LEG SWELLING. Allergies and Home Medications Allergies Coded Allergies: ARB-Angiotensin Receptor Antagonist (Verified Allergy, Severe, ANAPHYLAXIS, 10/25/17) DUE TO REACTION TO ACEI UNABLE TO TAKE ARB PER CARDIOLOGY. tree nut (Verified Allergy, Unknown, 10/25/17) JAQUELIN Inhibitors (Verified Adverse Reaction, Unknown, 10/25/17) ananaphlaxis Uncoded Allergies: ENVIRONMENTAL (Allergy, Mild, 09/07/08) Home Medications Acetaminophen 325 Mg Tablet, 650 MG PO Q4H PRN for PAIN-MILD, (Reported) TAKES 2 (325MG) TABLETS Albuterol Sulfate 2.5 Mg/3 Ml Vial.neb, 2.5 MG NEB QID, (Reported) Amlodipine Besylate 10 Mg Tablet, 10 MG PO DAILY, (Reported) Aspirin 81 Mg Tablet.dr, 81 MG PO HS, (Reported) Atorvastatin Calcium 40 Mg Tablet, 40 MG PO HS, (Reported) Bumetanide 2 Mg Tablet, 2 MG PO DAILY, (Reported) Cefdinir 300 Mg Capsule, 300 MG PO BID Prescribed by: VALENTINE KELLY on 04/09/18 1516 Docusate Sodium 250 Mg Capsule, 250 MG PO BID PRN for CONSTIPATION-1ST LINE, (Reported) Fexofenadine HCl 60 Mg Tablet, 60 MG PO DAILY, (Reported) Fluticasone/Salmeterol 1 Each Blst.w.dev, 1 PUFF INH BID, (Reported) LAST FILLED #1 INHALER 18 Guaifenesin 600 Mg Tab.er.12h, 600 MG PO BID, (Reported) Hydrochlorothiazide 25 Mg Tablet, 25 MG PO DAILY, (Reported) Insulin Aspart 300 Units/3 Ml Solution, 50 UNITS SQ TIDAC, (Reported) Insulin Detemir 100 Unit/1 Ml Insuln.pen, 50 UNITS SC BID, (Reported) Levothyroxine Sodium 150 Mcg Tablet, 300 MCG PO DAILY, (Reported) TAKES 2 (150MCG) TABLETS ALONG WITH 1 (50MCG) TABLET FOR TOTAL DAILY DOSE OF 350MCG. Loratadine 10 Mg Tablet, 10 MG PO DAILY, (Reported) Metoprolol Succinate 100 Mg Tab.er.24h, 1.5 TAB PO DAILY can take 150mg (1.5 tabs) once daily rather than splitting the dose Prescribed by: JONI WAYNE on 05/21/17 0726 Multivitamin 1 Each Tablet, 1 EACH PO DAILY, (Reported) Nitroglycerin 0.4 Mg Tab.subl, 0.4 MG SL UD PRN for CHEST PAIN, (Reported) Alexander-3/Dha/Epa/Fish Oil 1 Each Capsule, 1,000 MG PO TID, (Reported) Omeprazole 40 Mg Capsule.dr, 40 MG PO DAILY, (Reported) Potassium Gluconate 99 Mg Tablet, 99 MG PO DAILY, (Reported) Tiotropium [place] 1 Inh Aerp, 1 CAP IH DAILY, (Reported) Past Khijjvl-Laeexk-Fppghl Hx Patient Social History Alcohol Use: Regular Use Number of Drinks Today: FF Alcohol Beverage of Choice: Vodka Recreational Drug Use: No Smoking Status: Former Smoker Type Used: Cigarettes Former Smoker, Quit: Aug 17, 2006 2nd Hand Smoke Exposure: Yes Recent Foreign Travel: No Contact w/Someone Who Travel: No Recent Infectious Disease Expo: No Recent Hopitalizations: No Immunizations Up To Date Tetanus Booster (TDap): More than 5yrs PED Vaccines UTD: No Date of Pneumonia Vaccine: Jan 02, 2014 Date of Influenza Vaccine: Nov 20, 2017 Seasonal Allergies Seasonal Allergies: Yes Past Medical History Surgeries: Yes (HIATAL HERNIA REPAIR, ESOPHAGEAL WRAP) Abdominal, Appendectomy, CABG, Coronary Stent, Thyroidectomy Respiratory: Yes Pneumonia, Chronic Bronchitis, Sleep Apnea, COPD Currently Using CPAP: Yes Currently Using BIPAP: Yes Cardiac: Yes (STENTS, TRIPLE BYPASS) Chronic Edema/Swelling, Coronary Artery Disease, Heart Attack, High Cholesterol, Hypertension Neurological: Yes Neuropathy, Stroke Reproductive Disorders: No Sexually Transmitted Disease: No HIV/AIDS: No Genitourinary: No Gastrointestinal: Yes Gastroesophageal Reflux, Hiatal Hernia Musculoskeletal: Yes Arthritis Endocrine: Yes (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 6.0oz. 149.475859oo; 44.00 BMI Method:Stated Focused Exam Lactate Level 06/11/19 11:00: Lactic Acid Level 3.23*H 06/11/19 13:05: Lactic Acid Level 1.87 Lactic Acid Level Laboratory Tests Test 06/11/19 11:00 06/11/19 13:05 Lactic Acid Level 3.23 MMOL/L (0.50-2.00) *H 1.87 MMOL/L (0.50-2.00) Progress/Results/Core Measures Suspected Sepsis Recent Fever Within 48 Hours: No Infection Criteria Present: Suspected New Infection New/Unexplained Altered Menta: No Sepsis Screen: No Definite Risk SIRS Temperature: Pulse: Respiratory Rate: 18 Laboratory Tests 06/11/19 11:00: White Blood Count 3.4L Blood Pressure 133 /67 Mean: 89 06/11/19 11:00: Lactic Acid Level 3.23*H 06/11/19 13:05: Lactic Acid Level 1.87 Laboratory Tests 06/11/19 11:00: Creatinine 1.07, Platelet Count 133, Total Bilirubin 0.8 06/11/19 11:50: INR Comment 1.0 Results/Orders Lab Results Laboratory Tests Test 06/11/19 11:00 06/11/19 11:05 06/11/19 11:50 06/11/19 13:00 Range/Units White Blood Count 3.4 L 4.3-11.0 10^3/uL Red Blood Count 4.05 L 4.35-5.85 10^6/uL Hemoglobin 11.6 L 13.3-17.7 G/DL Hematocrit 35 L 40-54 % Mean Corpuscular Volume 87 80-99 FL Mean Corpuscular Hemoglobin 29 25-34 PG Mean Corpuscular Hemoglobin Concent 33 32-36 G/DL Red Cell Distribution Width 16.0 H 10.0-14.5 % Platelet Count 133 130-400 10^3/uL Mean Platelet Volume 10.0 7.4-10.4 FL Neutrophils (%) (Auto) 63 42-75 % Lymphocytes (%) (Auto) 15 12-44 % Monocytes (%) (Auto) 16 H 0-12 % Eosinophils (%) (Auto) 5 0-10 % Basophils (%) (Auto) 2 0-10 % Neutrophils # (Auto) 2.1 1.8-7.8 X 10^3 Lymphocytes # (Auto) 0.5 L 1.0-4.0 X 10^3 Monocytes # (Auto) 0.5 0.0-1.0 X 10^3 Eosinophils # (Auto) 0.2 0.0-0.3 10^3/uL Basophils # (Auto) 0.1 0.0-0.1 10^3/uL Erythrocyte Sedimentation Rate 35 H 0-30 MM/HR Sodium Level 136 135-145 MMOL/L Potassium Level 3.3 L 3.6-5.0 MMOL/L Chloride Level 102 98-107 MMOL/L Carbon Dioxide Level 18 L 21-32 MMOL/L Anion Gap 16 H 5-14 MMOL/L Blood Urea Nitrogen 11 7-18 MG/DL Creatinine 1.07 0.60-1.30 MG/DL Estimat Glomerular Filtration Rate > 60 BUN/Creatinine Ratio 10 Glucose Level 94 70-105 MG/DL Lactic Acid Level 3.23 *H 0.50-2.00 MMOL/L Calcium Level 8.7 8.5-10.1 MG/DL Corrected Calcium 9.0 8.5-10.1 MG/DL Magnesium Level 1.3 L 1.6-2.4 MG/DL Total Bilirubin 0.8 0.1-1.0 MG/DL Aspartate Amino Transf (AST/SGOT) 28 5-34 U/L Alanine Aminotransferase (ALT/SGPT) 17 0-55 U/L Alkaline Phosphatase 91 40-136 U/L Lactate Dehydrogenase 236 H 125-220 U/L Total Creatine Kinase 132 30-200 U/L Creatine Kinase MB 2.0 <6.6 NG/ML Myoglobin 88.1 10.0-92.0 NG/ML Troponin I < 0.028 <0.028 NG/ML C-Reactive Protein High Sensitivity 4.29 H 0.00-0.50 MG/DL B-Type Natriuretic Peptide 67.9 <100.0 PG/ML Total Protein 6.4 6.4-8.2 GM/DL Albumin 3.6 3.2-4.5 GM/DL Lipase 30 8-78 U/L Procalcitonin 0.03 <0.10 NG/ML Group A Streptococcus Screen NEGATIVE NEGATIVE Prothrombin Time 13.3 12.2-14.7 SEC INR Comment 1.0 0.8-1.4 Activated Partial Thromboplast Time 26 24-35 SEC Fibrinogen 546 H 221-496 MG/DL Test 06/11/19 13:05 06/11/19 13:17 Range/Units Lactic Acid Level 1.87 0.50-2.00 MMOL/L Blood Gas Puncture Site RIGHT RADIAL Blood Gas Patient Temperature 37.1 Arterial Blood pH 7.43 7.37-7.43 Arterial Blood Partial Pressure CO2 38 35-45 MMHG Arterial Blood Partial Pressure O2 92 79-93 MMHG Arterial Blood HCO3 25 23-27 MMOL/L Arterial Blood Total CO2 25.7 21.0-31.0 MMOL/L Arterial Blood Oxygen Saturation 97 94-100 % Arterial Blood Base Excess 0.7 -2.5-2.5 MMOL/L Ray Test POSITIVE Blood Gas Ventilator Setting NO Blood Gas Inspired Oxygen 4 L Micro Results Microbiology 06/11/19 Influenza Types A,B Antigen (ZAIN) - Final, Complete My Orders Orders - ELVIS STEEN DO Ed Iv/Invasive Line Start (06/11/19 10:56) Ekg Tracing (06/11/19 10:56) O2 (06/11/19 10:56) Monitor-Rhythm Ecg Trace Only (06/11/19 10:56) Chest 1 View, Ap/Pa Only (06/11/19 10:56) BNP (06/11/19 10:56) Cbc With Automated Diff (06/11/19 10:56) Comprehensive Metabolic Panel (06/11/19 10:56) Creatine Kinase (06/11/19 10:56) Creatine Kinase Mb (06/11/19 10:56) Hs C Reactive Protein (06/11/19 10:56) Erythrocyte Sedimentation Rate (06/11/19 10:56) Lactic Acid Analyzer (06/11/19 10:56) Lipase (06/11/19 10:56) Magnesium (06/11/19 10:56) Procalcitonin (Pct) (06/11/19 10:56) Protime With Inr (06/11/19 10:56) Partial Thromboplastin Time (06/11/19 10:56) Rapid Strep A Screen (06/11/19 10:56) Ua Culture If Indicated (06/11/19 10:56) Blood Culture (06/11/19 10:56) Influenza A And B Antigens (06/11/19 10:56) Myoglobin Serum (06/11/19 10:56) Troponin I (06/11/19 10:56) LDH (06/11/19 10:56) Sputum Culture (06/11/19 10:56) Coronavirus Sars-Cov-2 So 2018 (06/11/19 10:56) Adenovirus Detection By Pcr (06/11/19 10:56) Parainfluenza Virus 1,2,3 Pcr (06/11/19 10:56) Ferritin (06/11/19 10:56) Fibrinogen (06/11/19 10:56) Ceftriaxone For Iv Use (Rocephin For I (06/11/19 13:00) Azithromycin Injection (Zithromax Inject (06/11/19 13:00) Arterial Blood Gas (06/11/19 12:55) Vital Signs/I&O 06/11/19 06/11/19 10:45 10:45 Temp 36.7 Resp 18 B/P (MAP) 133/67 (89) Pulse Ox 93 O2 Delivery NIV Bilevel Nasal Cannula O2 Flow Rate 3.00 3.00 Capillary Refill : Less Than 3 Seconds Blood Pressure Mean: 89 Departure Communication (Admissions) 1300--SPOKE WITH DR. PURDY, ACCEPTS PT FOR ADMIT. Impression Primary Impression: BIBASILAR PNEUMONIA Additional Impressions: COPD exacerbation IDDM (insulin dependent diabetes mellitus) CAD WITH CABG AND STENTS Morbid obesity Lactic acidosis Hypomagnesemia COVID P.U.I. Disposition: ADMITTED INPATIENT Condition: Stable Admissions Decision to Admit Reason: Admit from ER (General) Decision to Admit/Date: Jun 11, 2019 Time/Decision to Admit Time: 13:00 Departure-Patient Inst. Referrals: [facility] (PCP) Primary Care Physician ROCKY MORRIS (Family) Primary Care Physician ELVIS STEEN DO Jun 11, 2019 14:00
--- NOTE | 2019-06-11 14:15 | NUR ---
RONALDO HERE TO GET PT. REPORT HAS NOT BEEN GIVEN ET [place] HENRRY WILL CALL BACK FOR REPORT.
[2019-06-11 14:30] VITALS: BP 133/67
[2019-06-11] MEDS ORDERED: ACETAMINOPHEN 500 MG TAB (TYLENOL) PO PRN (14:45)
--- NOTE | 2019-06-11 14:45 | NUR ---
KOMAL ORTIZ admitted to room 433-1, with an admitting diagnosis of PNEUMONIA , on 06/11/19 from [place] via , accompanied by .KOMAL ORTIZ introduced to surroundings, call light, bed controls, phone, TV, temperature control, lights, meal times, smoking policy, visitor policy, side rail policy, bathrooms and showers. Patient Rights given to patient in the handbook.KOMAL ORTIZ verbalizes understanding that [facility] is not responsible for the loss or damage to any personal effects or valuables that are kept in the patients posession during their hospitalization. KOMAL ORTIZ verbalizes understanding of Interdisciplinary Patient Education. Patient and/or family were informed about the Rapid Response Team and its purpose.
--- NOTE | 2019-06-11 14:53 | NUR ---
ATTEMPT TO CALL RONALDO FOR REPORT ET NO ANSWER.
[2019-06-11] MEDS ORDERED: METF-399 PO (15:16)
[2019-06-11] MEDS ORDERED: MONT10TA26 PO (15:16)
[2019-06-11] MEDS ORDERED: HYDR-3923 PO (15:16)
[2019-06-11] MEDS ORDERED: MTP100TCR PO ×2 (15:16)
[2019-06-11] MEDS ORDERED: HYDR-4227 PO (15:16)
[2019-06-11] MEDS ORDERED: FEXO-46 PO (15:19)
--- NOTE | 2019-06-11 15:21 | NUR ---
SPOKE WITH THE PT (I CALLED HIS ROOM PHONE AND HE DIDNT ANSWER- I THEN CALLED HIS CELL) GOT A MED LIST FROM [facility] AND [facility] TO COMPLETE THE MED REC I WILL ATTACH THE COPIES FROM [facility] TO THE PTS CHART WHEN I SPOKE WITH THE PT AND WAS ASKING QUESTIONS ABOUT HIS MEDS HE INDICATED HE DIDNT KNOW AND THAT I SHOULD GET A HOLD OF [facility] AND THEY WOULD TELL ME- I TRIED TO EXPLAIN THE IMPORTANCE OF FINDING OUT HOW HE WAS TRULY TAKING HIS MEDICATIONS. PT STILL WAS UNWILLING TO GO THRU HIS MEDS AND THEN HUNG UP THE PHONE. I WAITED A FEW MINUTES AND CALLED HIM BACK AND THERE WAS NO ANSWER. DUE TO THIS THE MED REC WAS COMPLETED TO THE BEST OF MY ABILITY THE FOLLOWING ARE FILL DATES FROM [facility]: 03-23-2019 METOPROLOL SUCC 100MG #135/90DS 04-17-2019 ATORVASTATIN 40MG #90/90DS 04-22-2019 ADVAIR 250/50 #1 04-29-2019 HCTZ 25MG #180/90DS 05-01-2019 HYDRALAZINE 25MG #90/30DS 05-04-2019 LEVOTHYROXINE 150MCG #60/30DS 05-11-2019 LEVEMIR FLEXPEN #10 PENS 05-13-2019 ALBUTEROL NEB SOLUTION #100VIALS 05-16-2019 MONTELUKAST 10MG #30/30DS 05-20-2019 SPIRIVA #1 05-21-2019 NORCO 7.5/325MG #84/28DS 05-23-2019 OMEPRAZOLE 40 MG #30/30DS 05-27-2019 NOVOLOG #15 PENS 05-28-2019 BUMEX 2MG #15/30DS 05-28-2019 METFORMIN 1000MG #60/30DS OTC MEDS: TYLENOL ASPIRIN KALANI MUCINEX POTASSIUM CLARITIN MTV FISH OIL
[2019-06-11] MEDS ORDERED: inSUlin ASPART (NovoLOG) 1 UNIT/0.01 ML (CHARGE PER UNIT) SC SCH (16:00)
[2019-06-11] MEDS ORDERED: ALBUTEROL/IPRATROP (COMBIVENT RESPIMAT) 4 GM INHALER IH PRN (16:00)
[2019-06-11 16:22] VITALS: BP 120/56
[2019-06-11] MEDS: NS IV 1000 ML 1,000 ML IV SCH (16:26)
[2019-06-11] MEDS: MAGNESIUM 1 GM/D5W 100 ML IVPB IV SCH ×2 (16:26→17:29)
[2019-06-11] MEDS ORDERED: KCL 20 MEQ TAB (K-DUR) PO ONE (17:00)
[2019-06-11] MEDS: inSUlin ASPART (NovoLOG) 1 UNIT/0.01 ML (CHARGE PER UNIT) SC SCH (17:36)
--- NOTE | 2019-06-11 17:40 | History & Physical-Hospitalist ---
History of Present Illness HPI/Chief Complaint Sadiq Felix is a 64-year-old male with past medical history of hypertension, diabetes, COPD, hyperlipidemia, hypothyroidism, morbid obesity, RACHEL, who presented with fever, shortness of breath, and cough. He reports that he has been having a fever for about a week. He has also had rigors at home. He also reports a productive cough that is sometimes blood-tinged. He reports dyspnea on exertion. He denies any chest pain but says that he does get some chest discomfort whenever he gets really short of breath. He denies any abdominal pain. He denies any nausea or vomiting. Denies any diarrhea or constipation. He denies any dysuria. Source: patient Exam Limitations: no limitations Date Seen 06/11/19 Time Seen by a Provider: 17:00 Attending Physician Millie Joseph MD PCP [facility] Referring Physician Date of Admission Jun 11, 2019 at 13:00 Home Medications & Allergies Home Medications Reviewed patient Home Medication Reconciliation performed by pharmacy medication reconciliations field service poultry technician and/or nursing. Patients Allergies have been reviewed. Allergies Allergies Coded Allergies ARB-Angiotensin Receptor Antagonist (Verified Allergy, Severe, ANAPHYLAXIS, 10/25/17) DUE TO REACTION TO ACEI UNABLE TO TAKE ARB PER CARDIOLOGY. tree nut (Verified Allergy, Unknown, 10/25/17) JAQUELIN Inhibitors (Verified Adverse Reaction, Unknown, 10/25/17) ananaphlaxis Uncoded Allergies ENVIRONMENTAL ( Allergy, Mild, 09/07/08) Past Wivnbqa-Etacsw-Tfgcdl Hx Past Med/Social Hx: Reviewed Nursing Past Med/Soc Hx Patient Social History Alcohol Use: Regular Use Number of Drinks Today: FF Alcohol Beverage of Choice: Vodka Recreational Drug Use: No Smoking Status: Former Smoker Former Smoker, Quit: Aug 17, 2006 Type Used: Cigarettes 2nd Hand Smoke Exposure: Yes Recent Foreign Travel: No Contact w/other who traveled: No Recent Hopitalizations: No Recent Infectious Disease Expo: No Immunizations Up To Date Tetanus Booster (TDap): More than 5yrs Pediatric: No Date of Pneumonia Vaccine: May 24, 2017 Date of Influenza Vaccine: Nov 20, 2017 Seasonal Allergies Seasonal Allergies: Yes Past Medical History Surgeries: Abdominal, Appendectomy, CABG, Coronary Stent, Thyroidectomy Currently Using CPAP: Yes Currently Using BIPAP: Yes Cardiac: Chronic Edema/Swelling, Coronary Artery Disease, Heart Attack, High Cholesterol, Hypertension Neurological: Neuropathy, Stroke Reproductive: No Sexually Transmitted Disease: No HIV/AIDS: No Gastrointestinal: Gastroesophageal Reflux, Hiatal Hernia Musculoskeletal: Arthritis Endocrine: Diabetes, Insulin dep Loss of Vision: Denies Hearing Impairment: Denies History of Blood Disorders: No Adverse Reaction to Blood Mason: No (N/A) Family History Cardiovascular disease Congenital heart disease Diabetes mellitus Hypertension Respiratory disorder Review of Systems Constitutional: chills, fever, malaise EENTM: no symptoms reported Respiratory: cough, dyspnea on exertion, phlegm, short of breath Cardiovascular: no symptoms reported Gastrointestinal: no symptoms reported Genitourinary: no symptoms reported Musculoskeletal: no symptoms reported Skin: no symptoms reported Psychiatric/Neurological: No Symptoms Reported Physical Exam Physical Exam Vital Signs Vital Signs - First Documented 06/11/19 06/11/19 14:15 14:30 Pulse 81 FiO2 32 Capillary Refill : Less Than 3 Seconds Height, Weight, BMI Height: 6'2.00" Weight: 330lbs. 6.0oz. 149.867534bb; 44.75 BMI Method:Stated General Appearance: No Apparent Distress, Obese HEENT: PERRL/EOMI, Pharynx Normal Neck: Normal Inspection, Supple Respiratory: Lungs Clear, No Respiratory Distress, Decreased Breath Sounds Cardiovascular: Regular Rate, Rhythm, No Murmur, Normal Peripheral Pulses Gastrointestinal: Normal Bowel Sounds, Non Tender, Soft Extremity: Normal Capillary Refill, Normal Inspection, Non Tender, Pedal Edema Neurologic/Psychiatric: Alert, Oriented x3, No Motor/Sensory Deficits, Normal Mood/Affect Skin: Normal Color, Warm/Dry Results Results/Procedures Labs Laboratory Tests 06/11/19 11:00 Patient resulted labs reviewed. Imaging: Reviewed Imaging Report Assessment/Plan Admission Diagnosis Severe sepsis due to pneumonia Admission Status: Inpatient Order (span 2 midnights) Reason for Inpatient Admission: Pneumonia requiring IV antibiotics Assessment and Plan Severe sepsis due to pneumonia Lactic acidosis -SIRS+ with leukopenia and tachypnea -Chest xray with patchy bibasilar infiltrate -Procalcitonin normal, repeat tomorrow -Lactic acid elevated 3 on admission, repeat normal -Continue IV fluids, hold diuretics for now -Started on Rocephin and Azithromycin -Blood cultures pending -COVID testing pending Hypokalemia Hypomagnesemia -Continue to monitor and replace as needed Chronic CHF -Hold diuretics at this time HTN -Hold amlodipine and HCTZ -Continue Metoprolol and hydralazine T2DM -Decreased dose Levemir and Novolog -SSI COPD -Continue home inhalers HLD -Continue statin Hypothyroidism -Continue levothyroxine Morbid obesity -BMI 44.8 on admission, clinically significant, no acute management needs DVT Prophylaxis: Lovenox Diagnosis/Problems Diagnosis/Problems (1) Severe sepsis Status: Acute (2) PNA (pneumonia) Status: Acute (3) Hypokalemia Status: Acute (4) Lactic acidosis Status: Acute (5) Hypomagnesemia Status: Acute Clinical Quality Measures DVT/VTE Risk/Contraindication: Risk Factor Score Per Nursin RFS Level Per Nursing on Admit: 4+=Very High RENETTA HERZOG MD Jun 11, 2019 17:40
[2019-06-11] MEDS ORDERED: ALBUTEROL/IPRATROP (COMBIVENT RESPIMAT) 4 GM INHALER IH SCH (18:00)
[2019-06-11] MEDS ORDERED: meTOprolol SUCCINATE 100 MG (TOPROL XL) TAB PO SCH (19:00)
[2019-06-11] MEDS: ADVAIR HFA 115/21 MCG INHALER 8 GM IH SCH (19:03)
[2019-06-11 19:45] VITALS: BP 120/66
[2019-06-11] MEDS: MAGNESIUM 1 GM/100 ML IVPB 100 ML IV SCH ×2 (19:48→19:51)
[2019-06-11] MEDS: hydrALAZINE (APRESOLINE) 25 MG TAB PO SCH (19:49)
[2019-06-11] MEDS: guaiFENesin (MUCINEX) 600 MG TAB PO SCH (19:49)
[2019-06-11] MEDS ORDERED: ASPIRIN E.C. 81 MG (ECOTRIN) TAB PO SCH (21:00)
[2019-06-11 23:48] VITALS: BP 141/67
[2019-06-12] MEDS: NS IV 1000 ML 1,000 ML IV SCH (04:21)
[2019-06-12 05:08] VITALS: BP 163/75
[2019-06-12] MEDS: inSUlin ASPART (NovoLOG) 1 UNIT/0.01 ML (CHARGE PER UNIT) SC SCH ×2 (05:23→12:00)
[2019-06-12 05:28] LABS: BASOPHILS % (AUTO) 1 % (0-10); EOSINOPHILS # (AUTO) 0.2 10^3/uL (0.0-0.3); EOSINOPHILS % (AUTO) 7 % (0-10); HEMATOCRIT 35 % (40-54); HEMOGLOBIN 11.4 G/DL (13.3-17.7); LYMPHOCYTES # (AUTO) 0.5 X 10^3 (1.0-4.0); LYMPHOCYTES % (AUTO) 13 % (12-44); MEAN CORPUSCULAR HEMOGLOBIN 29 PG (25-34); MEAN CORPUSCULAR HGB CONC 33 G/DL (32-36); MEAN CORPUSCULAR VOLUME 88 FL (80-99); MONOCYTES # (AUTO) 0.6 X 10^3 (0.0-1.0); MONOCYTES % (AUTO) 16 % (0-12); NEUTROPHILS # (AUTO) 2.2 X 10^3 (1.8-7.8); NEUTROPHILS % (AUTO) 63 % (42-75); PLATELET COUNT 118 10^3/uL (130-400); RED CELL DISTRIBUTION WIDTH 16.2 % (10.0-14.5); WHITE BLOOD COUNT 3.5 10^3/uL (4.3-11.0)
[2019-06-12 06:08] LABS: ALANINE AMINOTRANSFERASE 16 U/L (0-55); ALBUMIN 3.5 GM/DL (3.2-4.5); ALKALINE PHOSPHATASE 98 U/L (40-136); BILIRUBIN,TOTAL 0.8 MG/DL (0.1-1.0); BUN/CREATININE RATIO 13; CALCIUM 8.6 MG/DL (8.5-10.1); CARBON DIOXIDE 21 MMOL/L (21-32); CHLORIDE 104 MMOL/L (98-107); CREATININE SERUM 0.96 MG/DL (0.60-1.30); GFR ESTIMATED > 60; GLUCOSE 115 MG/DL (70-105); POTASSIUM 3.7 MMOL/L (3.6-5.0); SODIUM 139 MMOL/L (135-145); TOTAL PROTEIN 6.3 GM/DL (6.4-8.2)
[2019-06-12] MEDS: ADVAIR HFA 115/21 MCG INHALER 8 GM IH SCH (07:08)
[2019-06-12] MEDS ORDERED: UMECLIDINIUM BROMIDE (INCRUSE ELLIPTA) 7'S IH SCH (08:00)
[2019-06-12] MEDS: hydrALAZINE (APRESOLINE) 25 MG TAB PO SCH (08:08)
[2019-06-12] MEDS: guaiFENesin (MUCINEX) 600 MG TAB PO SCH (08:08)
[2019-06-12 08:28] VITALS: BP 146/74
[2019-06-12] MEDS ORDERED: LORATADINE (CLARITIN) 10 MG TAB PO SCH (09:00)
[2019-06-12] MEDS ORDERED: meTOprolol SUCCINATE 100 MG (TOPROL XL) TAB PO SCH (09:00)
[2019-06-12] MEDS ORDERED: LEVOTHYROXINE 150 MCG (LEVOTHROID) TAB PO SCH (09:00)
[2019-06-12] MEDS ORDERED: MONTELUKAST 10 MG (SINGULAIR) TAB PO SCH (09:00)
[2019-06-12] MEDS ORDERED: PANTOPRAZOLE 40 MG (PROTONIX) TAB PO SCH (09:00)
--- NOTE | 2019-06-12 09:52 | Diagnostic Imaging Report ---
HISTORY: Pneumonia COMPARISON: 06/11/2019 TECHNIQUE: Single frontal view of the chest FINDINGS: Patchy airspace opacities are seen in the right upper lobe and the right lung base. These appear to be chronic, stable since prior studies. Aeration appears stable since the prior study. There is mild cardiomegaly. No pleural effusion or pneumothorax is seen. Sternotomy wires and post-CABG changes are seen. IMPRESSION: 1. Airspace opacities in the right lung appear to be chronic. No new consolidation is seen. 2. Stable cardiomegaly. Dictated by: Dictated on workstation # [id number]
[2019-06-12] MEDS ORDERED: RT-ALBUTEROL/IPRATROPIUM 3 ML (DUONEB) VIAL IH PRN (10:30)
[2019-06-12 11:28] VITALS: BP 143/76
[2019-06-12] MEDS ORDERED: AZIT250T12 PO (11:32)
--- NOTE | 2019-06-12 11:38 | Discharge Summary ---
Discharge Summary Hospital Course Problems/Diagnosis: (1) IDDM (insulin dependent diabetes mellitus) Status: Acute (2) Severe sepsis Status: Resolved Resolution Date/Time: 06/12/19 @ 11:35 (3) Morbid obesity Status: Acute (4) PNA (pneumonia) Status: Acute (5) COPD (chronic obstructive pulmonary disease) Status: Chronic (6) HTN (hypertension) Status: Chronic Qualifiers: Qualified Codes: I10 - Essential (primary) hypertension (7) CHF (congestive heart failure) Status: Chronic Qualifiers: Hospital Course Date of Admission: Jun 11, 2019 at 13:00 Admission Diagnosis : Family Physician/Provider: Benjamín Ramos Date of Discharge: 06/12/19 Discharge Diagnosis: See problem list Hospital Course: Pt admitted and had rapid improvement to baseline with azithromycin and ceftriaxone. Discharged on home O2 with azithromycin to complete course. COVID19 testing negative. Labs and Pending Lab Test: Laboratory Tests 06/11/19 11:50: Prothrombin Time 13.3, INR Comment 1.0, Activated Partial Thromboplast Time 26, Fibrinogen 546H 06/11/19 13:00: Adenovirus (PCR) [Pending], Coronavirus (COVID-19)(PCR) Negative, Parainfluenza Type 1 (PCR) [Pending], Parainfluenza Type 2 (PCR) [Pending], Parainfluenza Type 3 (PCR) [Pending] 06/11/19 13:05: Lactic Acid Level 1.87 06/11/19 13:17: Blood Gas Puncture Site RIGHT RADIAL, Blood Gas Patient Temperature 37.1, Arterial Blood pH 7.43, Arterial Blood Partial Pressure CO2 38, Arterial Blood Partial Pressure O2 92, Arterial Blood HCO3 25, Arterial Blood Total CO2 25.7, Arterial Blood Oxygen Saturation 97, Arterial Blood Base Excess 0.7, Ray Test POSITIVE, Blood Gas Ventilator Setting NO, Blood Gas Inspired Oxygen 4 L 06/11/19 16:19: Glucometer 174H 06/11/19 19:48: Glucometer 226H 06/12/19 05:00: White Blood Count 3.5L, Red Blood Count 3.97L, Hemoglobin 11.4L, Hematocrit 35L, Mean Corpuscular Volume 88, Mean Corpuscular Hemoglobin 29, Mean Corpuscular Hemoglobin Concent 33, Red Cell Distribution Width 16.2H, Platelet Count 118L, Mean Platelet Volume 10.0, Neutrophils (%) (Auto) 63, Lymphocytes (%) (Auto) 13, Monocytes (%) (Auto) 16H, Eosinophils (%) (Auto) 7, Basophils (%) (Auto) 1, Neutrophils # (Auto) 2.2, Lymphocytes # (Auto) 0.5L, Monocytes # (Auto) 0.6, Eosinophils # (Auto) 0.2, Basophils # (Auto) 0.0, Sodium Level 139, Potassium Level 3.7, Chloride Level 104, Carbon Dioxide Level 21, Anion Gap 14, Blood Urea Nitrogen 12, Creatinine 0.96, Estimat Glomerular Filtration Rate > 60, BUN/Creatinine Ratio 13, Glucose Level 115H, Calcium Level 8.6, Corrected Calcium 9.0, Magnesium Level 2.0, Total Bilirubin 0.8, Aspartate Amino Transf (AST/SGOT) 22, Alanine Aminotransferase (ALT/SGPT) 16, Alkaline Phosphatase 98, Total Protein 6.3L, Albumin 3.5, Procalcitonin 0.03 06/12/19 05:20: Glucometer 120H 06/12/19 10:23: Glucometer 145H Microbiology 06/11/19 Gram Stain - Final, Resulted 06/11/19 Sputum Culture, Resulted Pending Home Meds Active Azithromycin 250 Mg Tablet 250 Mg PO DAILY 4 Days Reported Fexofenadine HCl 180 Mg Tablet 180 Mg PO DAILY PRN Montelukast Sodium 10 Mg Tablet 10 Mg PO DAILY Hydralazine HCl 25 Mg Tablet 25 Mg PO TID Metformin HCl 1,000 Mg Tablet 1,000 Mg PO BID WITH MEALS [place] 7.5-325 Tablet (Hydrocodone/Acetaminophen) 1 Each Tablet 1 Tab PO Q8H PRN Metoprolol Succinate 100 Mg Tab.er.24h 50 Mg PO DAILY Metoprolol Succinate 100 Mg Tab.er.24h 100 Mg PO 1900 Multiple Vitamins (Multivitamin) 1 Each Tablet 1 Each PO DAILY Atorvastatin Calcium 40 Mg Tablet 40 Mg PO HS Acetaminophen 325 Mg Tablet 650 Mg PO Q4H PRN TAKES 2 (325MG) TABLETS Loratadine 10 Mg Tablet 10 Mg PO DAILY Bumetanide 2 Mg Tablet 2 Mg PO Q48H Hydrochlorothiazide 25 Mg Tablet 50 Mg PO DAILY TAKES 2 (25MG) TABS DAILY Amlodipine Besylate 10 Mg Tablet 10 Mg PO DAILY Fish Oil 1,000 mg Softgel (Radnor-3/Dha/Epa/Fish Oil) 1 Each Capsule 1,000 Mg PO TID Spiriva (Tiotropium [place]) 1 Inh Aerp 1 Cap IH DAILY Albuterol Sulfate 2.5 Mg/3 Ml Vial.neb 2.5 Mg NEB QID Potassium (Potassium Gluconate) 99 Mg Tablet 99 Mg PO DAILY Mucinex (Guaifenesin) 600 Mg Tab.er.12h 600 Mg PO BID Nitrostat (Nitroglycerin) 0.4 Mg Tab.subl 0.4 Mg SL UD PRN Novolog Flexpen (Insulin Aspart) 300 Units/3 Ml Solution 50 Units SQ TIDAC Advair 250-50 Diskus (Fluticasone/Salmeterol) 1 Each Blst.w.dev 1 Puff INH BID Omeprazole 40 Mg Capsule.dr 40 Mg PO DAILY Levothyroxine Sodium 150 Mcg Tablet 300 Mcg PO DAILY TAKES 2 (150MCG) TABLETS Aspirin EC (Aspirin) 81 Mg Tablet.dr 81 Mg PO HS Levemir Flextouch (Insulin Detemir) 100 Unit/1 Ml Insuln.pen 50 Units SC BID Assessment/Pt DC Instructions Follow up with Aga Waldrop APRN on 06/16 at 1:20 pm. (Devaughn is out of the office). Discharge Diet: ADA Diet Activity as Tolerated: Yes Discharge Physical Examination Allergies: Coded Allergies: ARB-Angiotensin Receptor Antagonist (Verified Allergy, Severe, ANAPHYLAXIS, 10/25/17) DUE TO REACTION TO ACEI UNABLE TO TAKE ARB PER CARDIOLOGY. tree nut (Verified Allergy, Unknown, 10/25/17) JAQUELIN Inhibitors (Verified Adverse Reaction, Unknown, 10/25/17) ananaphlaxis Uncoded Allergies: ENVIRONMENTAL (Allergy, Mild, 09/07/08) General Appearance: No Apparent Distress Respiratory: No Accessory Muscle Use, No Respiratory Distress, Crackles (bibasilar) Cardiovascular: Regular Rate, Rhythm, No Edema, No Murmur Gastrointestinal: Normal Bowel Sounds, Non Tender, Soft Skin: Other (chronic venous stasis changes both lower legs) Neurologic/Psychiatric: Alert, Normal Mood/Affect Clinical Quality Measures DVT/VTE Risk/Contraindication: Risk Factor Score Per Nursin RFS Level Per Nursing on Admit: 4+=Very High ALBERTINA PURDY MD Jun 12, 2019 11:38
[2019-06-12 12:35] VITALS: BP 143/76
[2019-06-12 12:35] LABS: PARAINFLU 1 PCR Not Detected (Not Detected); PARAINFLU 2 PCR Not Detected (Not Detected)
[2019-06-12] MEDS ORDERED: AZITHROMYCIN 250 MG TAB (ZITHROMAX) PO SCH (14:00)
[2019-06-12] MEDS ORDERED: cefTRIAXone 1,000 MG/SWFI 10 ML IV PUSH IV SCH ×2 (14:00)
[2019-06-12] MEDS ORDERED: RT-ALBUTEROL/IPRATROPIUM 3 ML (DUONEB) VIAL IH SCH (14:00)
== END 2019-06-12 12:35 | disposition home or self-care (01) | DRG 871 ==
LOC: EDUNIT# 10:25 → ER 10:26 → 4TH 13:00
PROVIDERS: ADMIT Family Medicine; ATTEND Family Medicine
DX: A41.9 Sepsis, unspecified organism (principal); R65.20 Severe sepsis without septic shock; J18.9 Pneumonia, unspecified organism; J44.0 Chronic obstructive pulmonary disease with (acute) lower respiratory infection; J44.1 Chronic obstructive pulmonary disease with (acute) exacerbation; E87.2 Acidosis; Z68.41 Body mass index [BMI] 40.0-44.9, adult; I11.0 Hypertensive heart disease with heart failure; I50.9 Heart failure, unspecified; E11.40 Type 2 diabetes mellitus with diabetic neuropathy, unspecified; I25.10 Atherosclerotic heart disease of native coronary artery without angina pectoris; I25.2 Old myocardial infarction; E78.00 Pure hypercholesterolemia, unspecified; G47.33 Obstructive sleep apnea (adult) (pediatric); E66.01 Morbid (severe) obesity due to excess calories; E89.0 Postprocedural hypothyroidism; K21.9 Gastro-esophageal reflux disease without esophagitis; J30.2 Other seasonal allergic rhinitis; M19.91 Primary osteoarthritis, unspecified site; E87.6 Hypokalemia; E83.42 Hypomagnesemia; Z99.81 Dependence on supplemental oxygen; Z95.1 Presence of aortocoronary bypass graft; Z95.5 Presence of coronary angioplasty implant and graft; Z87.891 Personal history of nicotine dependence; Z79.4 Long term (current) use of insulin; Z86.73 Personal history of transient ischemic attack (TIA), and cerebral infarction without residual deficits; Z20.828 Contact with and (suspected) exposure to other viral communicable diseases; Z90.49 Acquired absence of other specified parts of digestive tract
CPT/HCPCS: 36415; 71045; 80053; 82550; 82553; 82728; 82805; 82962; 83605; 83615; 83690; 83735; 83874; 83880; 84145; 84484; 85025; 85384; 85610; 85652; 85730; 86141; 87040; 87070; 87205; 87430; 87631; 87635; 87798; 87804; 93005; 93041; 94640; 94760

== ENCOUNTER → 2019-08-29 | Outpatient (CLI) | payer MEDICARE, OTHER ==
[~2019-08-29] MED LIST changes: +AZIT250T12 PO; +FEXO-46 PO; +HYDR-3923 PO; +HYDR-4227 PO; +MONT10TA26 PO; +RT-ALBUTEROL SULF 2.5 MG/3 ML PRE-MIX VIAL INH ONE
== END ==
LOC: RT 07:13
PROVIDERS: ATTEND Nurse Practitioner Family
DX: J18.9 Pneumonia, unspecified organism (principal); C80.1 Malignant (primary) neoplasm, unspecified; J96.20 Acute and chronic respiratory failure, unspecified whether with hypoxia or hypercapnia; J44.9 Chronic obstructive pulmonary disease, unspecified; J30.9 Allergic rhinitis, unspecified; Z87.891 Personal history of nicotine dependence
CPT/HCPCS: 94060; 94726; 94729

== ENCOUNTER → 2019-09-24 | Outpatient (CLI) | payer MEDICARE, OTHER ==
[~2019-09-24] MED LIST changes: +CATHETER FLUSH 10 ML SYR IV PRN; +HOLD METFORMIN - RECEIVED CONTRAST 20 ML VIAL IV SCH; +IOHEXOL 350 MG/ML 100 ML (OMNIPAQUE 350) VIAL IV ONE; +NS 100 ML (IVPB) BAG IV ONE; -RT-ALBUTEROL SULF 2.5 MG/3 ML PRE-MIX VIAL INH ONE
[2019-09-24 10:07] LABS: BUN/CREATININE RATIO 13; CREATININE SERUM 0.98 MG/DL (0.60-1.30); GFR ESTIMATED > 60
--- NOTE | 2019-09-24 14:03 | Diagnostic Imaging Report ---
EXAMINATION: CT Chest with intravenous contrast. TECHNIQUE: Multiple contiguous axial images were obtained through the chest after the uneventful administration of intravenous contrast. All CT scans use one or more of the following dose optimizing techniques: automated exposure control, MA and/or KvP adjustment based on a patient size and exam type, or iterative reconstruction. HISTORY: Shortness of breath. COMPARISON: 12/18/2018. FINDINGS: There is a stable area of what is likely scarring in the right upper lobe. There is significant septal line thickening in the lung bases which appears similar to prior exam but is slightly worsened. There is also mild groundglass in the lung bases. Overall, findings are consistent with edema. No pleural effusion. No pneumothorax. There is no axillary or supraclavicular lymphadenopathy. There are numerous small mediastinal lymph nodes which all measure less than 1 cm in short axis. These are likely reactive. There has been a median sternotomy for coronary artery bypass grafting. Heart size is normal. There are moderate coronary artery calcifications. No pericardial effusion. Aorta is normal in caliber. Limited views of the upper abdomen are unremarkable. There are no suspicious osseous lesions. IMPRESSION: 1. Stable area of what is likely scarring in the right upper lobe. We note this area is unchanged. 2. Increase in septal line thickening and groundglass in the lung bases most suggestive of moderate pulmonary edema. Dictated by: Dictated on workstation # [id number]
== END ==
LOC: RAD 09:11
PROVIDERS: ATTEND Nurse Practitioner Family
DX: J96.20 Acute and chronic respiratory failure, unspecified whether with hypoxia or hypercapnia (principal); C80.1 Malignant (primary) neoplasm, unspecified; J30.9 Allergic rhinitis, unspecified; G47.33 Obstructive sleep apnea (adult) (pediatric); J84.9 Interstitial pulmonary disease, unspecified; J44.9 Chronic obstructive pulmonary disease, unspecified; R91.1 Solitary pulmonary nodule; Z87.891 Personal history of nicotine dependence
CPT/HCPCS: 36415; 71260; 82565; 84520